=== PATIENT | female | born 1945 | race Caucasian/White ===

== ENCOUNTER 2018-08-08 19:00 | Inpatient (IN) | payer MEDICARE, BC ==
[~2018-08-08] VITALS: Ht 154.9 cm; Wt 86.2 kg
[2018-08-08] MEDS ORDERED: MAG HYDROX/AL HYDROX/SIMETH 30 ML ORAL.SUSP PO PRN (20:00)
[2018-08-08] MEDS ORDERED: AMLO5TAB10 PO (21:11)
[2018-08-08] MEDS ORDERED: BENA20TA4 PO (21:11)
[2018-08-08] MEDS ORDERED: ERGO500027 PO (21:11)
[2018-08-08] MEDS ORDERED: ACET325T9 PO (21:11)
[2018-08-08] MEDS ORDERED: ASPI-630 PO (21:11)
[2018-08-08] MEDS ORDERED: HEPA500041 IM (21:11)
[2018-08-08] MEDS ORDERED: LOVA40TA2 PO (21:21)
[2018-08-08] MEDS ORDERED: LEVE500T56 PO (21:21)
[2018-08-08] MEDS ORDERED: MEMA10TA PO (21:21)
[2018-08-08] MEDS ORDERED: QUET25TA5 PO (21:21)
[2018-08-08] MEDS ORDERED: QUET25TA PO (21:21)
[2018-08-08] MEDS ORDERED: VENL150T PO (21:21)
[2018-08-08] MEDS ORDERED: LEVO100T5 PO (21:21)
[2018-08-08] MEDS ORDERED: ACETAMINOPHEN 325 MG TABLET PO PRN (21:30)
[2018-08-08] MEDS: MEMANTINE 10 MG TABLET. PO SCH (22:32)
[2018-08-08] MEDS: levETIRAcetam 500 MG TABLET PO SCH (22:32)
[2018-08-08] MEDS: HEPARIN PF for SUB-Q USE 5,000 UNIT/0.5 ML VIAL. SQ SCH (22:33)
[2018-08-08] MEDS: QUEtiapine 25 MG TABLET. PO SCH (22:34)
[2018-08-08 22:50] LABS: BASO # 0.1 x10^3/uL (0.0-0.2); BASO % 1 % (0-3); EOS # 0.2 x10^3/uL (0.0-0.7); EOS % 3 % (0-3); HEMATOCRIT 38.9 % (36.0-47.0); HEMOGLOBIN 13.2 g/dL (12.0-15.5); LYMPH # 2.3 x10^3/uL (1.0-4.8); LYMPH % 32 % (24-48); MEAN CORPUSCULAR HEMOGLOBIN 31 pg (25-35); MEAN CORPUSCULAR HGB CONC 34 g/dL (31-37); MEAN CORPUSCULAR VOLUME 90 fL (79-100); MONO # 0.4 x10^3/uL (0.0-1.1); MONO % 6 % (0-9); NEUT # 4.1 x10^3uL (1.8-7.7); NEUT % 58 % (31-73); PLATELET COUNT 263 x10^3/uL (140-400); RED BLOOD COUNT 4.32 x10^6/uL (3.50-5.40); RED CELL DISTRIBUTION WIDTH 14.2 % (11.5-14.5)
[2018-08-08 23:04] LABS: ALBUMIN 3.5 g/dL (3.4-5.0); ALBUMIN/GLOBULIN RATIO 0.8 (1.0-1.7); CALCIUM 9.2 mg/dL (8.5-10.1); CREATININE 0.7 mg/dL (0.6-1.0); GFR 81.6; POTASSIUM 3.3 mmol/L (3.5-5.1); TOTAL BILIRUBIN 0.6 mg/dL (0.2-1.0)
[2018-08-09] MEDS ORDERED: DEXTROSE 50% 25 GM / 50ML DISP.SYRIN. IV PRN (05:45)
[2018-08-09] MEDS: HEPARIN PF for SUB-Q USE 5,000 UNIT/0.5 ML VIAL. SQ SCH ×3 (05:50→20:31)
[2018-08-09] MEDS: LEVOTHYROXINE 100 MCG TABLET PO SCH (05:54)
[2018-08-09 06:24] VITALS: BP 159/96
[2018-08-09 06:26] VITALS: BP 159/96
[2018-08-09] MEDS: INSULIN LISPRO 300 UNITS/3 ML INSULN.PEN. SQ SCH ×3 (08:00→17:00)
[2018-08-09] MEDS: MEMANTINE 10 MG TABLET. PO SCH ×2 (09:10→20:29)
[2018-08-09] MEDS: levETIRAcetam 500 MG TABLET PO SCH ×2 (09:10→20:30)
[2018-08-09] MEDS: LISINOPRIL 20 MG TABLET PO SCH (09:13)
[2018-08-09] MEDS: amLODIPine BESYLATE 5 MG TABLET PO SCH (09:13)
[2018-08-09] MEDS: ASPIRIN 81 MG TAB.CHEW PO SCH (09:13)
[2018-08-09] MEDS: QUEtiapine 25 MG TABLET. PO SCH ×2 (09:14→20:29)
[2018-08-09] MEDS: VENLAFAXINE 50 MG TABLET. PO SCH ×3 (09:14→20:29)
[2018-08-09 13:34] LABS: THYROID STIM HORMONE (TSH) 2.106 uIU/mL (0.358-3.740)
[2018-08-09 16:05] VITALS: BP 125/71
[2018-08-09 19:12] LABS: THYROXINE 10.8 ug/dL (4.5-12.0)
--- NOTE | 2018-08-09 19:55 | PDOC ---
Exam Note: José Miguel Note: Please also refer to the separate dictated note~for this date of service dictated separately. . Discussed the patient with Nursing staff reviewed the chart.~Reviewed interim history and current functioning. Reviewed vital signs,~ Labs/ Radiology~and current medications noted below. Continue current treatment with the changes noted in the dictated addendum note Assessment: Vital Signs: Vital Signs Date Time Temp Pulse Resp B/P (MAP) Pulse Ox O2 Delivery O2 Flow Rate FiO2 08/09/18 16:05 98.1 84 16 125/71 (89) 92 Room Air I&O Intake and Output 08/09/18 07:00 # Voids 1 Labs: Laboratory Tests Test 08/08/18 20:31 08/08/18 22:44 08/09/18 16:33 08/09/18 19:35 Glucose (Fingerstick) 112 mg/dL (70-99) H 162 mg/dL (70-99) H 209 mg/dL (70-99) H White Blood Count 7.0 x10^3/uL (4.0-11.0) Red Blood Count 4.32 x10^6/uL (3.50-5.40) Hemoglobin 13.2 g/dL (12.0-15.5) Hematocrit 38.9 % (36.0-47.0) Mean Corpuscular Volume 90 fL (79-100) Mean Corpuscular Hemoglobin 31 pg (25-35) Mean Corpuscular Hemoglobin Concent 34 g/dL (31-37) Red Cell Distribution Width 14.2 % (11.5-14.5) Platelet Count 263 x10^3/uL (140-400) Neutrophils (%) (Auto) 58 % (31-73) Lymphocytes (%) (Auto) 32 % (24-48) Monocytes (%) (Auto) 6 % (0-9) Eosinophils (%) (Auto) 3 % (0-3) Basophils (%) (Auto) 1 % (0-3) Neutrophils # (Auto) 4.1 x10^3uL (1.8-7.7) Lymphocytes # (Auto) 2.3 x10^3/uL (1.0-4.8) Monocytes # (Auto) 0.4 x10^3/uL (0.0-1.1) Eosinophils # (Auto) 0.2 x10^3/uL (0.0-0.7) Basophils # (Auto) 0.1 x10^3/uL (0.0-0.2) Sodium Level 140 mmol/L (136-145) Potassium Level 3.3 mmol/L (3.5-5.1) L Chloride Level 101 mmol/L (98-107) Carbon Dioxide Level 30 mmol/L (21-32) Anion Gap 9 (6-14) Blood Urea Nitrogen 10 mg/dL (7-20) Creatinine 0.7 mg/dL (0.6-1.0) Estimated GFR (Cockcroft-Gault) 81.6 BUN/Creatinine Ratio 14 (6-20) Glucose Level 115 mg/dL (70-99) H Hemoglobin A1c 6.0 % (4.8-5.6) H Calcium Level 9.2 mg/dL (8.5-10.1) Magnesium Level 2.0 mg/dL (1.8-2.4) Iron Level 57 ug/dL (50-170) Total Iron Binding Capacity 216 ug/dL (250-450) L Iron Saturation 26 % (15-34) Total Bilirubin 0.6 mg/dL (0.2-1.0) Aspartate Amino Transferase (AST) 25 U/L (15-37) Alanine Aminotransferase (ALT) 29 U/L (14-59) Alkaline Phosphatase 79 U/L (46-116) Total Protein 8.0 g/dL (6.4-8.2) Albumin 3.5 g/dL (3.4-5.0) Albumin/Globulin Ratio 0.8 (1.0-1.7) L Triglycerides Level 88 mg/dL (0-150) Cholesterol Level 105 mg/dL (0-200) LDL Cholesterol, Calculated 39 mg/dL (0-100) VLDL Cholesterol, Calculated 17 mg/dL (0-40) Non-HDL Cholesterol Calculated 56 mg/dL (0-129) HDL Cholesterol 49 mg/dL (40-60) Cholesterol/HDL Ratio 2.0 Vitamin B12 Level 360 pg/mL (247-911) 25-Hydroxy Vitamin D Total 65.4 ng/mL (30-100) Thyroid Stimulating Hormone (TSH) 2.106 uIU/mL (0.358-3.740) Thyroxine (T4) 10.8 ug/dL (4.5-12.0) Total Triiodothyronine (TT3) 82 ng/dL (71-180) Treponema pallidum Antibody Nonreactive (Nonreactive) Current Medications: Meds: Current Medications Acetaminophen (Tylenol) 650 mg PRN Q6HRS PRN PO PAIN / TEMP; Start 08/08/18 at 20:00 Multi-Ingredient Ointment (Analgesic [place]) 1 diana PRN QID PRN TP MUSCLE PAIN; Start 08/08/18 at 20:00 Al Hydroxide/Mg Hydroxide (Mylanta Plus Xs) 15 ml PRN AFTMEALHC PRN PO DYSPEPSIA; Start 08/08/18 at 20:00 Magnesium Hydroxide (Milk Of Magnesia) 2,400 mg PRN QHS PRN PO CONSTIPATION; Start 08/08/18 at 20:00 Memantine (Namenda) 10 mg BID PO Last administered on 08/09/18at 09:10; Start 08/08/18 at 22:00 Quetiapine Fumarate (SEROquel) 25 mg DAILY PO Last administered on 08/09/18at 09 :14; Start 08/09/18 at 09:00 Quetiapine Fumarate (SEROquel) 75 mg HS PO Last administered on 08/08/18at 22:34 ; Start 08/08/18 at 22:00 Venlafaxine HCl (Effexor) 50 mg TID PO Last administered on 08/09/18at 14:26; Start 08/09/18 at 09:00 Acetaminophen (Tylenol) 650 mg PRN Q4HRS PRN PO PAIN / TEMP; Start 08/08/18 at 21:30; Status Cancel Levothyroxine Sodium (Synthroid) 100 mcg DAILY06 PO Last administered on at 05:54; Start 08/09/18 at 06:00 Amlodipine Besylate (Norvasc) 5 mg DAILY PO Last administered on 08/09/18 09: 13; Start 08/09/18 at 09:00 Aspirin (Children'S Aspirin) 81 mg DAILY PO Last administered on 08/09/18at 09: 13; Start 08/09/18 at 09:00 Lisinopril (Prinivil) 20 mg DAILY PO Last administered on 08/09/18at 09:13; Start 11/9/18 at 09:00 Vitamin D (Vitamin D3) 50,000 unit WEEKLY PO ; Start 08/15/18 at 09:00 Heparin Sodium (Porcine) (Heparin Sq) 5,000 unit Q8HRS SQ Last administered on 08/09/18at 14:27; Start 08/08/18 at 22:00 Levetiracetam (Keppra) 500 mg BID PO Last administered on 08/09/18at 09:10; Start 08/08/18 at 22:00 Atorvastatin Calcium (Lipitor) 20 mg QHS PO ; Start 08/09/18 at 21:00 Insulin Human Lispro (HumaLOG) 0-5 UNITS TIDWMEALS SQ ; Start 08/09/18 at 08:00 Dextrose 12.5 gm PRN Q15MIN PRN IV SEE COMMENTS; Start 08/09/18 at 05:45 Active Scripts Active Reported Venlafaxine Hcl Er (Venlafaxine Hcl) 150 Mg Tab.er.24 150 Mg PO DAILYWBKFT Quetiapine Fumarate 25 Mg Tablet 25 Mg PO DAILY Seroquel (Quetiapine Fumarate) 25 Mg Tablet 75 Mg PO QHS Namenda (Memantine Hcl) 10 Mg Tablet 10 Mg PO BID Lovastatin 40 Mg Tablet 80 Mg PO QHS Levothyroxine Sodium 100 Mcg Tablet 100 Mcg PO DAILYAC Keppra (Levetiracetam) 500 Mg Tablet 500 Mg PO BID Heparin 5,000 Unit/5 ml-Ns (Heparin Sod,Porcine/0.9 % NaCl) 5,000 Unit/5 Ml Syringe 5,000 Unit IM Q8HRS Vitamin D2 (Ergocalciferol (Vitamin D2)) 50,000 Unit Capsule 50,000 Unit PO WEEKLY Benazepril Hcl 20 Mg Tablet 20 Mg PO DAILY Aspirin 81 Mg Tab.chew 81 Mg PO DAILY Amlodipine Besylate 5 Mg Tablet 5 Mg PO DAILY Tylenol (Acetaminophen) 325 Mg Tablet 650 Mg PO PRN Q4HRS PRN I have reviewed the current psychotropics carefully including drug interactions. Risk benefit ratio favors no change other than as noted in my dictated progress note. Diagnosis: Problems: (1) Anxiety disorder (2) Mild cognitive disorder (3) Major depressive disorder, recurrent episode (4) Impulse control disorder ANTONIA BAILEY MD Aug 09, 2018 19:55
[2018-08-09] MEDS: ATORVASTATIN CALCIUM 20 MG TABLET PO SCH (20:30)
--- NOTE | 2018-08-09 22:59 | PDOC ---
Exam Note: José Miguel Note: Please also refer to the separate dictated note~for this date of service dictated separately.~Patient seen individually. Discussed the patient with Nursing staff reviewed the chart.~Reviewed interim history and current functioning. Reviewed vital signs,~Labs/ Radiology~and current medications noted below. Continue current treatment with the changes noted in the dictated addendum note Assessment: Vital Signs: Vital Signs Date Time Temp Pulse Resp B/P (MAP) Pulse Ox O2 Delivery O2 Flow Rate FiO2 08/09/18 16:05 98.1 84 16 125/71 (89) 92 Room Air I&O Intake and Output 08/09/18 07:00 # Voids 1 Labs: Laboratory Tests Test 08/09/18 16:33 08/09/18 19:35 Glucose (Fingerstick) 162 mg/dL (70-99) H 209 mg/dL (70-99) H Current Medications: Meds: Current Medications Acetaminophen (Tylenol) 650 mg PRN Q6HRS PRN PO PAIN / TEMP; Start 08/08/18 at 20:00 Multi-Ingredient Ointment (Analgesic [place]) 1 diana PRN QID PRN TP MUSCLE PAIN; Start 08/08/18 at 20:00 Al Hydroxide/Mg Hydroxide (Mylanta Plus Xs) 15 ml PRN AFTMEALHC PRN PO DYSPEPSIA; Start 08/08/18 at 20:00 Magnesium Hydroxide (Milk Of Magnesia) 2,400 mg PRN QHS PRN PO CONSTIPATION; Start 08/08/18 at 20:00 Memantine (Namenda) 10 mg BID PO Last administered on 08/09/18at 20:29; Start 08/08/18 at 22:00 Quetiapine Fumarate (SEROquel) 25 mg DAILY PO Last administered on 08/09/18at 09 :14; Start 08/09/18 at 09:00 Quetiapine Fumarate (SEROquel) 75 mg HS PO Last administered on 08/09/18at 20:29 ; Start 08/08/18 at 22:00 Venlafaxine HCl (Effexor) 50 mg TID PO Last administered on 08/09/18at 20:29; Start 08/09/18 at 09:00 Acetaminophen (Tylenol) 650 mg PRN Q4HRS PRN PO PAIN / TEMP; Start 08/08/18 at 21:30; Status Cancel Levothyroxine Sodium (Synthroid) 100 mcg DAILY06 PO Last administered on at 05:54; Start 08/09/18 at 06:00 Amlodipine Besylate (Norvasc) 5 mg DAILY PO Last administered on 08/09/18at 09: 13; Start 08/09/18 at 09:00 Aspirin (Children'S Aspirin) 81 mg DAILY PO Last administered on 08/09/18at 09: 13; Start 08/09/18 at 09:00 Lisinopril (Prinivil) 20 mg DAILY PO Last administered on 08/09/18at 09:13; Start 08/09/18 at 09:00 Vitamin D (Vitamin D3) 50,000 unit WEEKLY PO ; Start 08/15/18 at 09:00 Heparin Sodium (Porcine) (Heparin Sq) 5,000 unit Q8HRS SQ Last administered on 08/09/18at 20:31; Start 08/08/18 at 22:00 Levetiracetam (Keppra) 500 mg BID PO Last administered on 08/09/18at 20:30; Start 08/08/18 at 22:00 Atorvastatin Calcium (Lipitor) 20 mg QHS PO Last administered on 08/09/18at 20: 30; Start 08/09/18 at 21:00 Insulin Human Lispro (HumaLOG) 0-5 UNITS TIDWMEALS SQ ; Start 08/09/18 at 08:00 Dextrose 12.5 gm PRN Q15MIN PRN IV SEE COMMENTS; Start 08/09/18 at 05:45 Active Scripts Active Reported Venlafaxine Hcl Er (Venlafaxine Hcl) 150 Mg Tab.er.24 150 Mg PO DAILYWBKFT Quetiapine Fumarate 25 Mg Tablet 25 Mg PO DAILY Seroquel (Quetiapine Fumarate) 25 Mg Tablet 75 Mg PO QHS Namenda (Memantine Hcl) 10 Mg Tablet 10 Mg PO BID Lovastatin 40 Mg Tablet 80 Mg PO QHS Levothyroxine Sodium 100 Mcg Tablet 100 Mcg PO DAILYAC Keppra (Levetiracetam) 500 Mg Tablet 500 Mg PO BID Heparin 5,000 Unit/5 ml-Ns (Heparin Sod,Porcine/0.9 % NaCl) 5,000 Unit/5 Ml Syringe 5,000 Unit IM Q8HRS Vitamin D2 (Ergocalciferol (Vitamin D2)) 50,000 Unit Capsule 50,000 Unit PO WEEKLY Benazepril Hcl 20 Mg Tablet 20 Mg PO DAILY Aspirin 81 Mg Tab.chew 81 Mg PO DAILY Amlodipine Besylate 5 Mg Tablet 5 Mg PO DAILY Tylenol (Acetaminophen) 325 Mg Tablet 650 Mg PO PRN Q4HRS PRN I have reviewed the current psychotropics carefully including drug interactions. Risk benefit ratio favors no change other than as noted in my dictated progress note. Diagnosis: Problems: (1) Anxiety disorder (2) Mild cognitive disorder (3) Major depressive disorder, recurrent episode (4) Impulse control disorder ANTONIA BAILEY MD Aug 09, 2018 22:59
--- NOTE | 2018-08-09 23:20 | PDOC2 ---
CONSULT Date of Admission DATE: 08/08/18 Reason for Consult: Medical Management Referring Physician: Dr Rocha Source: Caregiver, Chart review, Patient History of Present Illness: 73/F admitted to [facility] unit for worsening mental status. Records indicate patient has been emotionally labile with periods of depression and crying alternating with aggression. Reportedly hallucinating at times and vague reports of suicidal ideation. Symptoms worsening for the past three weeks and records indicate her neurologist has diagnosed her with MDD + psychotic features. Recently finished abx tx for UTI 08/06. I find the patient lying in her bed taking a nap but she is easily arousable. She is oriented only to herself. Answers "no" to suicidal ideation or current depressed mood. She does admit to decreased activity lately and "whole body pain" with activity, she feels physical activity would help. She denies any current acute complaints. She has DNR. Cardiovascular: HTN (murmur), hyperipidemia Pulmonary: Other (HONG) CENTRAL NERVOUS SYSTEM: CVA (x 2 with intracerebral hemorrhage), Seizure GI: Diverticulosis Heme/Onc: Cancer (Breast) Psych: Depression, Psychosis ENT: Other (cataracts, macular degeneration) Endocrine: Diabetes, Hypothyroidism Past Surgical History mastectomy Smoke: No ALCOHOL: none Drugs: None Lives: with Family Domestic Violence: Neg Current Medications Current Medications Acetaminophen (Tylenol) 650 mg PRN Q6HRS PRN PO PAIN / TEMP; Start 08/08/18 at 20:00 Multi-Ingredient Ointment (Analgesic [place]) 1 diana PRN QID PRN TP MUSCLE PAIN; Start 08/08/18 at 20:00 Al Hydroxide/Mg Hydroxide (Mylanta Plus Xs) 15 ml PRN AFTMEALHC PRN PO DYSPEPSIA; Start 08/08/18 at 20:00 Magnesium Hydroxide (Milk Of Magnesia) 2,400 mg PRN QHS PRN PO CONSTIPATION; Start 08/08/18 at 20:00 Memantine (Namenda) 10 mg BID PO Last administered on 08/09/18at 20:29; Start 08/08/18 at 22:00 Quetiapine Fumarate (SEROquel) 25 mg DAILY PO Last administered on 08/09/18at 09 :14; Start 08/09/18 at 09:00 Quetiapine Fumarate (SEROquel) 75 mg HS PO Last administered on 08/09/18 20:29 ; Start 08/08/18 at 22:00 Venlafaxine HCl (Effexor) 50 mg TID PO Last administered on 08/09/18 20:29; Start 08/09/18 at 09:00 Acetaminophen (Tylenol) 650 mg PRN Q4HRS PRN PO PAIN / TEMP; Start 08/08/18 at 21:30; Status Cancel Levothyroxine Sodium (Synthroid) 100 mcg DAILY06 PO Last administered on at 05:54; Start 08/09/18 at 06:00 Amlodipine Besylate (Norvasc) 5 mg DAILY PO Last administered on 08/09/18 09: 13; Start 08/09/18 at 09:00 Aspirin (Children'S Aspirin) 81 mg DAILY PO Last administered on 08/09/18 09: 13; Start 08/09/18 at 09:00 Lisinopril (Prinivil) 20 mg DAILY PO Last administered on 08/09/18at 09:13; Start 08/09/18 at 09:00 Vitamin D (Vitamin D3) 50,000 unit WEEKLY PO ; Start 08/15/18 at 09:00 Heparin Sodium (Porcine) (Heparin Sq) 5,000 unit Q8HRS SQ Last administered on 08/09/18at 20:31; Start 08/08/18 at 22:00 Levetiracetam (Keppra) 500 mg BID PO Last administered on 08/09/18 20:30; Start 08/08/18 at 22:00 Atorvastatin Calcium (Lipitor) 20 mg QHS PO Last administered on 08/09/18 20: 30; Start 08/09/18 at 21:00 Insulin Human Lispro (HumaLOG) 0-5 UNITS TIDWMEALS SQ ; Start 08/09/18 at 08:00 Dextrose 12.5 gm PRN Q15MIN PRN IV SEE COMMENTS; Start 08/09/18 at 05:45 Active Scripts Active Reported Venlafaxine Hcl Er (Venlafaxine Hcl) 150 Mg Tab.er.24 150 Mg PO DAILYWBKFT Quetiapine Fumarate 25 Mg Tablet 25 Mg PO DAILY Seroquel (Quetiapine Fumarate) 25 Mg Tablet 75 Mg PO QHS Namenda (Memantine Hcl) 10 Mg Tablet 10 Mg PO BID Lovastatin 40 Mg Tablet 80 Mg PO QHS Levothyroxine Sodium 100 Mcg Tablet 100 Mcg PO DAILYAC Keppra (Levetiracetam) 500 Mg Tablet 500 Mg PO BID Heparin 5,000 Unit/5 ml-Ns (Heparin Sod,Porcine/0.9 % NaCl) 5,000 Unit/5 Ml Syringe 5,000 Unit IM Q8HRS Vitamin D2 (Ergocalciferol (Vitamin D2)) 50,000 Unit Capsule 50,000 Unit PO WEEKLY Benazepril Hcl 20 Mg Tablet 20 Mg PO DAILY Aspirin 81 Mg Tab.chew 81 Mg PO DAILY Amlodipine Besylate 5 Mg Tablet 5 Mg PO DAILY Tylenol (Acetaminophen) 325 Mg Tablet 650 Mg PO PRN Q4HRS PRN Allergies: Coded Allergies: No Known Drug Allergies (Unverified , 08/08/18) Review of Systems: Constitutional: No fever or chills Eyes: No new eye pain or blurred vision Skin: No rash or itching Cardiovascular: No chest pain, syncope, palpitations, dyspnea on exertion, or edema Respiratory: No cough or difficulty breathing Gastrointestinal: No nausea, vomiting, or abdominal pain Neurologic: No headaches or focal neurologic deficits Endocrine: No heat or cold intolerance Genitourinary: No incontinence or hematuria Musculoskeletal: No joint pain or swelling Lymphatics: No enlarged lymph nodes Physical Exam: Gen.: calm and cooperative napping in bed, no apparent distress HEENT: Normocephalic atraumatic, no scleral icterus, oral mucosa pink and moist Neck: Supple, no lymphadenopathy, nontender Cardiovascular: Normal S1 and S2, 2/6 DANIELLE LSB Pulmonary: Lungs are clear bilaterally with good air movement no respiratory distress Abdomen: Soft nontender non-distended, bowel sounds present no masses Extremities: No clubbing, cyanosis or edema Neuro: Alert and oriented to self Skin: Warm, dry VITALS Vital Signs Date Time Temp Pulse Resp B/P (MAP) Pulse Ox O2 Delivery O2 Flow Rate FiO2 08/09/18 16:05 98.1 84 16 125/71 (89) 92 Room Air Labs Laboratory Tests Test 08/08/18 20:31 08/08/18 22:44 08/09/18 16:33 08/09/18 19:35 Glucose (Fingerstick) 112 mg/dL (70-99) 162 mg/dL (70-99) 209 mg/dL (70-99) White Blood Count 7.0 x10^3/uL (4.0-11.0) Red Blood Count 4.32 x10^6/uL (3.50-5.40) Hemoglobin 13.2 g/dL (12.0-15.5) Hematocrit 38.9 % (36.0-47.0) Mean Corpuscular Volume 90 fL (79-100) Mean Corpuscular Hemoglobin 31 pg (25-35) Mean Corpuscular Hemoglobin Concent 34 g/dL (31-37) Red Cell Distribution Width 14.2 % (11.5-14.5) Platelet Count 263 x10^3/uL (140-400) Neutrophils (%) (Auto) 58 % (31-73) Lymphocytes (%) (Auto) 32 % (24-48) Monocytes (%) (Auto) 6 % (0-9) Eosinophils (%) (Auto) 3 % (0-3) Basophils (%) (Auto) 1 % (0-3) Neutrophils # (Auto) 4.1 x10^3uL (1.8-7.7) Lymphocytes # (Auto) 2.3 x10^3/uL (1.0-4.8) Monocytes # (Auto) 0.4 x10^3/uL (0.0-1.1) Eosinophils # (Auto) 0.2 x10^3/uL (0.0-0.7) Basophils # (Auto) 0.1 x10^3/uL (0.0-0.2) Sodium Level 140 mmol/L (136-145) Potassium Level 3.3 mmol/L (3.5-5.1) Chloride Level 101 mmol/L (98-107) Carbon Dioxide Level 30 mmol/L (21-32) Anion Gap 9 (6-14) Blood Urea Nitrogen 10 mg/dL (7-20) Creatinine 0.7 mg/dL (0.6-1.0) Estimated GFR (Cockcroft-Gault) 81.6 BUN/Creatinine Ratio 14 (6-20) Glucose Level 115 mg/dL (70-99) Hemoglobin A1c 6.0 % (4.8-5.6) Calcium Level 9.2 mg/dL (8.5-10.1) Magnesium Level 2.0 mg/dL (1.8-2.4) Iron Level 57 ug/dL (50-170) Total Iron Binding Capacity 216 ug/dL (250-450) Iron Saturation 26 % (15-34) Total Bilirubin 0.6 mg/dL (0.2-1.0) Aspartate Amino Transf (AST/SGOT) 25 U/L (15-37) Alanine Aminotransferase (ALT/SGPT) 29 U/L (14-59) Alkaline Phosphatase 79 U/L (46-116) Total Protein 8.0 g/dL (6.4-8.2) Albumin 3.5 g/dL (3.4-5.0) Albumin/Globulin Ratio 0.8 (1.0-1.7) Triglycerides Level 88 mg/dL (0-150) Cholesterol Level 105 mg/dL (0-200) LDL Cholesterol, Calculated 39 mg/dL (0-100) VLDL Cholesterol, Calculated 17 mg/dL (0-40) Non-HDL Cholesterol Calculated 56 mg/dL (0-129) HDL Cholesterol 49 mg/dL (40-60) Cholesterol/HDL Ratio 2.0 Vitamin B12 Level 360 pg/mL (247-911) 25-Hydroxy Vitamin D Total 65.4 ng/mL (30-100) Thyroid Stimulating Hormone (TSH) 2.106 uIU/mL (0.358-3.740) Thyroxine (T4) 10.8 ug/dL (4.5-12.0) Total Triiodothyronine 82 ng/dL (71-180) Treponema pallidum Antibody Nonreactive (Nonreactive) Assessment/Plan In general this is a 73/F with multiple medical problems admitted to [facility] unit for changes in mental status. She reportedly recently finished abx tx 08/06 for UTI at [facility] however urine here still positive for UTI. Request culture/sensitivity from recent infection, cephalexin 500mg tid x 10 days empiric until cultures reported. K+ 3.3, will initiate electrolyte protocol. Hemoglobin A1c 6.0 above goal, recommend fully treat UTI and establish blood glucose trend. PT evaluation per patient request. We will continue to follow and offer treatments as indicated. Thank you, Dr Rocha, for allowing me to participate in the care of your patient. GISELA EMERSON DO Aug 09, 2018 23:20
[2018-08-10 06:00] VITALS: BP 111/70
[2018-08-10 06:37] LABS: BILIRUBIN,URINE MOD (NEG); CLARITY,URINE TURBID; COLOR,URINE AMBER; GLUCOSE,URINE NEG (NEG); NITRITE,URINE NEG (NEG); UROBILINOGEN,URINE 1 mg/dL (0.2 mg/dL)
[2018-08-10 06:38] LABS: AMORPHOUS SEDIMENT,UR PRESENT /HPF; BACTERIA,URINE FEW /HPF (0-FEW); HYALINE CASTS, URINE FEW /HPF; SQUAMOUS EPITHELIAL CELL,UR MOD /LPF
[2018-08-10] MEDS: QUEtiapine 25 MG TABLET. PO SCH ×2 (07:50→20:26)
[2018-08-10] MEDS: MEMANTINE 10 MG TABLET. PO SCH ×2 (07:50→20:26)
[2018-08-10] MEDS: VENLAFAXINE 50 MG TABLET. PO SCH ×2 (07:50→13:40)
[2018-08-10] MEDS: LISINOPRIL 20 MG TABLET PO SCH (07:51)
[2018-08-10] MEDS: levETIRAcetam 500 MG TABLET PO SCH ×2 (07:53→20:26)
[2018-08-10] MEDS: amLODIPine BESYLATE 5 MG TABLET PO SCH (07:53)
[2018-08-10] MEDS: LEVOTHYROXINE 100 MCG TABLET PO SCH (07:53)
[2018-08-10] MEDS: ASPIRIN 81 MG TAB.CHEW PO SCH (07:53)
[2018-08-10] MEDS: INSULIN LISPRO 300 UNITS/3 ML INSULN.PEN. SQ SCH ×3 (07:54→17:00)
[2018-08-10] MEDS: HEPARIN PF for SUB-Q USE 5,000 UNIT/0.5 ML VIAL. SQ SCH ×3 (07:56→20:28)
--- NOTE | 2018-08-10 12:30 | HP ---
ADMIT DATE: 08/09/2018 PSYCHIATRIC ADMISSION HISTORY AND EVALUATION This is a late entry, date of service 08/09/2018 covers elements not covered in my initial note 08/09/2018. I met with the patient evening of 08/09/2018 for this evaluation. IDENTIFYING DATA: The patient is a 73-year-old female referred to us from [facility] in [place], [place] by Dr. Day. After she presented there from home on account of increasing crying spells, suicidal ideation, being depressed, hallucinating and was diagnosed with major depressive disorder with psychotic features by the neurologist there. She had been aggressive towards family, having sleep and appetite changes, worsening short term memory deficits. She is admitted by her DPOA, Dixie Landrum, [id number] and the patient's physician at [facility] had activated the power of rotating field assembler. CHIEF COMPLAINT: "Yes, I have been depressed. Sometimes, I wish I could be ." HISTORY OF PRESENT ILLNESS: Reportedly, the patient has had 2 CVAs in the past year and has had other multiple medical problems. These include breast cancer, left breast; cataracts. She has chronic pain, which is overwhelming for her, does have diabetes mellitus, heart murmur, hypertension, hypothyroidism, obesity, sleep apnea and history of seizures. She has appeared more depressed, hopeless, helpless, worthless, paranoid, agitated. She has had some mood swings and short term memory deficits. No homicidal ideation. No clear history of bipolar disorder. PAST PSYCHIATRIC HISTORY: As noted above. PAST MEDICAL HISTORY: Diabetes mellitus, heart murmur, chronic pain, cataracts, breast cancer, left breast; sleep apnea, history of seizures, hypothyroidism, hypertension, obesity, impaired ambulation, in wheelchair. DRUG ALLERGIES: Negative. ACCU-CHEKS: A.c. and at bedtime. DIET: Cardiac diet regular texture. Takes medications whole. She has had some loose stools. CURRENT PSYCHOTROPICS: Seroquel 75 mg p.o. at bedtime, Namenda 10 mg b.i.d. FAMILY HISTORY: Noncontributory. SOCIAL HISTORY: No history of alcohol, drug abuse, physical, sexual or elder abuse. She is not known to be a perpetrator. REACTION TO HOSPITALIZATION: The patient accepting of it. ASSETS: Supportive family. MENTAL STATUS EXAMINATION: The patient was seen individually evening of 08/09/2018. She was aware it was 08/2018, but unsure of the date. She knew the President was President, oJsh. She is able to do two steps on the serial sevens, able to spell world forward with no error, backward with 1 error. Mood is depressed, somewhat hopeless, anxious. Affect is mood congruent. She has vague suicidal ideation. No active suicidal ideation when I have examined the evening of 08/09/2018. Attention span short. Language function intact. Intellect average. Insight fair. Judgment marginal. LABORATORY DATA: Reviewed. IMPRESSION: Major depressive disorder, recurrent with psychotic features; anxiety disorder, unspecified; impulse control disorder, unspecified; mild cognitive impairment. Rest diagnoses as above. PLAN: Admit to geropsychiatry unit at [facility]. I will see the patient daily individually from a psychiatric standpoint. Request medical followup with Dr. Anguiano/Dr. Rivera. Continue the patient on current psychotropics. Obtain past psychiatric records, though she has never seen a psychiatrist in the past. Continue current psychotropics, observe baseline, then adjust as clinically indicated. Given chronic pain we may change the Effexor to Cymbalta, which may help with the pain as well, but I would like to make this decision after the next 28-48 hours of observation and evaluation. Estimated length of stay 10-12 days. DISPOSITION PLANS: Probably back home to outpatient treatment. ANTONIA BAILEY MD DR: RAYMON/christen JOB#: [id number] / [id number]
[2018-08-10 16:04] VITALS: BP 101/63
[2018-08-10] MEDS: ACETAMINOPHEN 325 MG TABLET PO PRN (17:56)
[2018-08-10] MEDS: ATORVASTATIN CALCIUM 20 MG TABLET PO SCH (20:26)
--- NOTE | 2018-08-10 22:58 | PDOC ---
Exam Note: José Miguel Note: Please also refer to the separate dictated note~for this date of service dictated separately.~Patient seen individually. Discussed the patient with Nursing staff reviewed the chart.~Reviewed interim history and current functioning. Reviewed vital signs,~Labs/ Radiology~and current medications noted below. Continue current treatment with the changes noted in the dictated addendum note Assessment: Vital Signs: Vital Signs Date Time Temp Pulse Resp B/P (MAP) Pulse Ox O2 Delivery O2 Flow Rate FiO2 08/10/18 16:04 97.0 87 18 101/63 (76) 97 Room Air I&O Intake and Output 08/10/18 07:00 Intake Total 840 ml Output Total 300 ml Balance 540 ml Intake Oral 840 ml Output Urine Total 300 ml # Bowel Movements 1 Labs: Laboratory Tests Test 08/10/18 06:05 08/10/18 07:11 08/10/18 11:30 08/10/18 16:56 Urine Collection Type U cath Urine Color [place] Urine Clarity Turbid Urine pH 5.0 Urine Specific [place] >=1.030 Urine Protein 30 mg/dl (NEG-TRACE) Urine Glucose (UA) Neg mg/dL (NEG) Urine Ketones (Stick) 15 mg/dL (NEG) Urine Blood Neg (NEG) Urine Nitrite Neg (NEG) Urine Bilirubin Mod (NEG) Urine Urobilinogen Dipstick 1 mg/dL (0.2 mg/dL) Urine Leukocyte Esterase Trace (NEG) Urine RBC 1-2 /HPF (0-2) Urine WBC 5-10 /HPF (0-4) Urine Squamous Epithelial Cells Mod /LPF Urine Transitional Epithelial Cells Occ /LPF Urine Amorphous Sediment Present /HPF Urine Bacteria Few /HPF (0-FEW) Urine Hyaline Casts Few /HPF Urine Mucus Slight /LPF Glucose (Fingerstick) 187 mg/dL (70-99) H 202 mg/dL (70-99) H 194 mg/dL (70-99) H Test 08/10/18 19:52 Glucose (Fingerstick) 181 mg/dL (70-99) H Current Medications: Meds: Current Medications Acetaminophen (Tylenol) 650 mg PRN Q6HRS PRN PO PAIN / TEMP Last administered on 08/10/18at 17:56; Start 08/08/18 at 20:00 Multi-Ingredient Ointment (Analgesic [place]) 1 diana PRN QID PRN TP MUSCLE PAIN; Start 08/08/18 at 20:00 Al Hydroxide/Mg Hydroxide (Mylanta Plus Xs) 15 ml PRN AFTMEALHC PRN PO DYSPEPSIA; Start 08/08/18 at 20:00 Magnesium Hydroxide (Milk Of Magnesia) 2,400 mg PRN QHS PRN PO CONSTIPATION; Start 08/08/18 at 20:00 Memantine (Namenda) 10 mg BID PO Last administered on 08/10/18at 20:26; Start 08/08/18 at 22:00 Quetiapine Fumarate (SEROquel) 25 mg DAILY PO Last administered on 08/10/18at 07:50; Start 08/09/18 at 09:00 Quetiapine Fumarate (SEROquel) 75 mg HS PO Last administered on 08/10/18 20: 26; Start 08/08/18 at 22:00 Venlafaxine HCl (Effexor) 50 mg TID PO Last administered on 08/10/18at 13:40; Start 08/09/18 at 09:00; Stop 08/10/18 at 17:54; Status DC Acetaminophen (Tylenol) 650 mg PRN Q4HRS PRN PO PAIN / TEMP; Start 08/08/18 at 21:30; Status Cancel Levothyroxine Sodium (Synthroid) 100 mcg DAILY06 PO Last administered on at 07:53; Start 08/09/18 at 06:00 Amlodipine Besylate (Norvasc) 5 mg DAILY PO Last administered on 08/10/18at 07: 53; Start 08/09/18 at 09:00 Aspirin (Children'S Aspirin) 81 mg DAILY PO Last administered on 08/10/18at 07: 53; Start 08/09/18 at 09:00 Lisinopril (Prinivil) 20 mg DAILY PO Last administered on 08/10/18at 07:51; Start 08/09/18 at 09:00 Vitamin D (Vitamin D3) 50,000 unit WEEKLY PO ; Start 08/15/18 at 09:00 Heparin Sodium (Porcine) (Heparin Sq) 5,000 unit Q8HRS SQ Last administered on 08/10/18at 20:28; Start 08/08/18 at 22:00 Levetiracetam (Keppra) 500 mg BID PO Last administered on 08/10/18at 20:26; Start 08/08/18 at 22:00 Atorvastatin Calcium (Lipitor) 20 mg QHS PO Last administered on 08/10/18at 20: 26; Start 08/09/18 at 21:00 Insulin Human Lispro (HumaLOG) 0-5 UNITS TIDWMEALS SQ Last administered on 07/18at 12:12; Start 08/09/18 at 08:00 Dextrose 12.5 gm PRN Q15MIN PRN IV SEE COMMENTS; Start 08/09/18 at 05:45 Duloxetine HCl (Cymbalta) 30 mg DAILY PO ; Start 08/11/18 at 09:00; Stop 08/12 at 09:01 Duloxetine HCl (Cymbalta) 60 mg DAILY PO ; Start 08/13/18 at 09:00 Active Scripts Active Reported Venlafaxine Hcl Er (Venlafaxine Hcl) 150 Mg Tab.er.24 150 Mg PO DAILYWBKFT Quetiapine Fumarate 25 Mg Tablet 25 Mg PO DAILY Seroquel (Quetiapine Fumarate) 25 Mg Tablet 75 Mg PO QHS Namenda (Memantine Hcl) 10 Mg Tablet 10 Mg PO BID Lovastatin 40 Mg Tablet 80 Mg PO QHS Levothyroxine Sodium 100 Mcg Tablet 100 Mcg PO DAILYAC Keppra (Levetiracetam) 500 Mg Tablet 500 Mg PO BID Heparin 5,000 Unit/5 ml-Ns (Heparin Sod,Porcine/0.9 % NaCl) 5,000 Unit/5 Ml Syringe 5,000 Unit IM Q8HRS Vitamin D2 (Ergocalciferol (Vitamin D2)) 50,000 Unit Capsule 50,000 Unit PO WEEKLY Benazepril Hcl 20 Mg Tablet 20 Mg PO DAILY Aspirin 81 Mg Tab.chew 81 Mg PO DAILY Amlodipine Besylate 5 Mg Tablet 5 Mg PO DAILY Tylenol (Acetaminophen) 325 Mg Tablet 650 Mg PO PRN Q4HRS PRN I have reviewed the current psychotropics carefully including drug interactions. Risk benefit ratio favors no change other than as noted in my dictated progress note. Diagnosis: Problems: (1) Anxiety disorder (2) Mild cognitive disorder (3) Major depressive disorder, recurrent episode (4) Impulse control disorder ANTONIA BAILEY MD Aug 10, 2018 22:58
[2018-08-11] MEDS: LEVOTHYROXINE 100 MCG TABLET PO SCH (05:44)
[2018-08-11] MEDS: HEPARIN PF for SUB-Q USE 5,000 UNIT/0.5 ML VIAL. SQ SCH ×3 (06:39→21:26)
[2018-08-11 07:14] VITALS: BP 96/62
[2018-08-11] MEDS: INSULIN LISPRO 300 UNITS/3 ML INSULN.PEN. SQ SCH ×3 (08:00→17:34)
[2018-08-11] MEDS: ASPIRIN 81 MG TAB.CHEW PO SCH (08:53)
[2018-08-11] MEDS: levETIRAcetam 500 MG TABLET PO SCH ×2 (08:53→21:22)
[2018-08-11] MEDS: MEMANTINE 10 MG TABLET. PO SCH ×2 (08:53→21:20)
[2018-08-11] MEDS: QUEtiapine 25 MG TABLET. PO SCH ×2 (08:53→21:20)
[2018-08-11] MEDS: LACTOBACILLUS RHAMNOSUS GG 1 CAPSULE. PO SCH ×2 (08:54→21:20)
[2018-08-11] MEDS: amLODIPine BESYLATE 5 MG TABLET PO SCH (08:56)
[2018-08-11] MEDS: DULoxetine HCL 30 MG CAPSULE.DR PO SCH (08:56)
[2018-08-11] MEDS: CEPHALEXIN 250 MG CAPSULE PO SCH ×3 (08:56→21:20)
[2018-08-11] MEDS: LISINOPRIL 20 MG TABLET PO SCH (08:58)
[2018-08-11 16:12] VITALS: BP 100/60
--- NOTE | 2018-08-11 17:20 | PN ---
DATE: 08/10/2018 PSYCHIATRIC PROGRESS NOTE This is a late entry 08/10/2018 covers elements not covered in my initial note. SUBJECTIVE: I met with the patient in the evening. The patient slept 8-1/2 hours previous night. Overall, she has done little better during the day, but by the evening when I met with her, she was tearful, withdrawn, not very verbally interactive, depressed, unable to state what had changed for her, as I questioned her individually. REVIEW OF SYSTEMS: Ambulation impaired, in wheelchair. No CV, , pulmonary, eye system symptoms on review. MENTAL STATUS EXAM: Oriented to herself, situations. Speech, often responses monosyllabic, has some latency. Abstraction fair, computation impaired, language function intact, attention span short. Mood and affect depressed. IMPRESSION: Major depressive disorder with psychotic features; cognitive disorder, unspecified. Rest unchanged. PLAN: Change Effexor 50 mg t.i.d. to Cymbalta 30 mg a day for 2 days, then 60 mg a day. Continue Seroquel 75 mg at bedtime and add 25 mg in the morning to augment the Cymbalta. Continue Namenda 10 b.i.d. and she remains on Keppra 500 b.i.d. for seizures. ANTONIA BAILEY MD DR: RAYMON/christen JOB#: [id number] / [id number]
[2018-08-11] MEDS: ATORVASTATIN CALCIUM 20 MG TABLET PO SCH (21:20)
--- NOTE | 2018-08-11 22:58 | PDOC ---
Exam Note: José Miguel Note: Please also refer to the separate dictated note~for this date of service dictated separately.~Patient seen individually. Discussed the patient with Nursing staff reviewed the chart.~Reviewed interim history and current functioning. Reviewed vital signs,~Labs/ Radiology~and current medications noted below. Continue current treatment with the changes noted in the dictated addendum note Assessment: Vital Signs: Vital Signs Date Time Temp Pulse Resp B/P (MAP) Pulse Ox O2 Delivery O2 Flow Rate FiO2 08/11/18 16:12 97.4 77 20 100/60 (73) 98 08/11/18 07:14 Room Air I&O Intake and Output 08/11/18 07:00 Intake Total 960 ml Balance 960 ml Intake Oral 960 ml Labs: Laboratory Tests Test 08/11/18 07:51 08/11/18 11:49 08/11/18 17:03 08/11/18 19:30 Glucose (Fingerstick) 165 mg/dL (70-99) H 238 mg/dL (70-99) H 207 mg/dL (70-99) H 161 mg/dL (70-99) H Current Medications: Meds: Current Medications Acetaminophen (Tylenol) 650 mg PRN Q6HRS PRN PO PAIN / TEMP Last administered on 08/10/18at 17:56; Start 08/08/18 at 20:00 Multi-Ingredient Ointment (Analgesic [place]) 1 diana PRN QID PRN TP MUSCLE PAIN; Start 08/08/18 at 20:00 Al Hydroxide/Mg Hydroxide (Mylanta Plus Xs) 15 ml PRN AFTMEALHC PRN PO DYSPEPSIA; Start 08/08/18 at 20:00 Magnesium Hydroxide (Milk Of Magnesia) 2,400 mg PRN QHS PRN PO CONSTIPATION; Start 08/08/18 at 20:00 Memantine (Namenda) 10 mg BID PO Last administered on 08/11/18at 21:20; Start 08/08/18 at 22:00 Quetiapine Fumarate (SEROquel) 25 mg DAILY PO Last administered on 08/11/18at 08:53; Start 08/09/18 at 09:00 Quetiapine Fumarate (SEROquel) 75 mg HS PO Last administered on 08/11/18at 21: 20; Start 08/08/18 at 22:00 Venlafaxine HCl (Effexor) 50 mg TID PO Last administered on 08/10/18at 13:40; Start 08/09/18 at 09:00; Stop 08/10/18 at 17:54; Status DC Acetaminophen (Tylenol) 650 mg PRN Q4HRS PRN PO PAIN / TEMP; Start 08/08/18 at 21:30; Status Cancel Levothyroxine Sodium (Synthroid) 100 mcg DAILY06 PO Last administered on at 05:44; Start 08/09/18 at 06:00 Amlodipine Besylate (Norvasc) 5 mg DAILY PO Last administered on 08/10/18at 07: 53; Start 08/09/18 at 09:00 Aspirin (Children'S Aspirin) 81 mg DAILY PO Last administered on 08/11/18at 08: 53; Start 08/09/18 at 09:00 Lisinopril (Prinivil) 20 mg DAILY PO Last administered on 08/10/18at 07:51; Start 08/09/18 at 09:00 Vitamin D (Vitamin D3) 50,000 unit WEEKLY PO ; Start 08/15/18 at 09:00 Heparin Sodium (Porcine) (Heparin Sq) 5,000 unit Q8HRS SQ Last administered on 08/11/18at 21:26; Start 08/08/18 at 22:00 Levetiracetam (Keppra) 500 mg BID PO Last administered on 08/11/18at 21:22; Start 08/08/18 at 22:00 Atorvastatin Calcium (Lipitor) 20 mg QHS PO Last administered on 08/11/18at 21: 20; Start 08/09/18 at 21:00 Insulin Human Lispro (HumaLOG) 0-5 UNITS TIDWMEALS SQ Last administered on 08/18at 17:34; Start 08/09/18 at 08:00 Dextrose 12.5 gm PRN Q15MIN PRN IV SEE COMMENTS; Start 08/09/18 at 05:45 Duloxetine HCl (Cymbalta) 30 mg DAILY PO Last administered on 08/11/18at 08:56 ; Start 08/11/18 at 09:00; Stop 08/12/18 at 09:01 Duloxetine HCl (Cymbalta) 60 mg DAILY PO ; Start 08/13/18 at 09:00 Cephalexin HCl (Keflex) 500 mg TID PO Last administered on 08/11/18at 21:20; Start 08/11/18 at 09:00; Stop 08/21/18 at 08:59 Lactobacillus Rhamnosus (Culturelle) 1 cap BID PO Last administered on at 21:20; Start 08/11/18 at 09:00 Active Scripts Active Reported Venlafaxine Hcl Er (Venlafaxine Hcl) 150 Mg Tab.er.24 150 Mg PO DAILYWBKFT Quetiapine Fumarate 25 Mg Tablet 25 Mg PO DAILY Seroquel (Quetiapine Fumarate) 25 Mg Tablet 75 Mg PO QHS Namenda (Memantine Hcl) 10 Mg Tablet 10 Mg PO BID Lovastatin 40 Mg Tablet 80 Mg PO QHS Levothyroxine Sodium 100 Mcg Tablet 100 Mcg PO DAILYAC Keppra (Levetiracetam) 500 Mg Tablet 500 Mg PO BID Heparin 5,000 Unit/5 ml-Ns (Heparin Sod,Porcine/0.9 % NaCl) 5,000 Unit/5 Ml Syringe 5,000 Unit IM Q8HRS Vitamin D2 (Ergocalciferol (Vitamin D2)) 50,000 Unit Capsule 50,000 Unit PO WEEKLY Benazepril Hcl 20 Mg Tablet 20 Mg PO DAILY Aspirin 81 Mg Tab.chew 81 Mg PO DAILY Amlodipine Besylate 5 Mg Tablet 5 Mg PO DAILY Tylenol (Acetaminophen) 325 Mg Tablet 650 Mg PO PRN Q4HRS PRN I have reviewed the current psychotropics carefully including drug interactions. Risk benefit ratio favors no change other than as noted in my dictated progress note. Diagnosis: Problems: (1) Anxiety disorder (2) Mild cognitive disorder (3) Major depressive disorder, recurrent episode (4) Impulse control disorder ANTONIA BAILEY MD Aug 11, 2018 22:58
[2018-08-12] MEDS: LEVOTHYROXINE 100 MCG TABLET PO SCH (06:24)
[2018-08-12] MEDS: HEPARIN PF for SUB-Q USE 5,000 UNIT/0.5 ML VIAL. SQ SCH ×3 (06:25→20:19)
[2018-08-12 06:27] VITALS: BP 113/75
[2018-08-12] MEDS: INSULIN LISPRO 300 UNITS/3 ML INSULN.PEN. SQ SCH ×3 (08:00→17:37)
[2018-08-12] MEDS: LACTOBACILLUS RHAMNOSUS GG 1 CAPSULE. PO SCH ×2 (08:06→20:13)
[2018-08-12] MEDS: DULoxetine HCL 30 MG CAPSULE.DR PO SCH (08:06)
[2018-08-12] MEDS: amLODIPine BESYLATE 5 MG TABLET PO SCH (08:06)
[2018-08-12] MEDS: QUEtiapine 25 MG TABLET. PO SCH ×2 (08:06→20:12)
[2018-08-12] MEDS: LISINOPRIL 20 MG TABLET PO SCH (08:07)
[2018-08-12] MEDS: ASPIRIN 81 MG TAB.CHEW PO SCH (08:07)
[2018-08-12] MEDS: CEPHALEXIN 250 MG CAPSULE PO SCH ×3 (08:07→20:13)
[2018-08-12] MEDS: MEMANTINE 10 MG TABLET. PO SCH ×2 (08:07→20:13)
[2018-08-12] MEDS: levETIRAcetam 500 MG TABLET PO SCH ×2 (08:07→20:12)
--- NOTE | 2018-08-12 13:03 | EKG ---
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
[2018-08-12 16:15] VITALS: BP 125/75
--- NOTE | 2018-08-12 19:38 | PN ---
DATE: 08/11/2018 PSYCHIATRIC PROGRESS NOTE This late entry 08/11/2018 covers the elements not covered in my initial note. SUBJECTIVE: I met with the patient in the evening. The patient has been somewhat tearful, slept 7 hours the previous night. She is sad that the family has not visited her. She did better during the day, but was tearful, anxious, and not very verbal late in the evening when I met with her. REVIEW OF SYSTEMS: Ambulation impaired, in wheelchair. No CV, , pulmonary, eye system symptoms on review. MENTAL STATUS EXAM: Oriented to herself, situation. Speech has some latency, coherent. Abstraction fair, computation impaired, language function intact, attention span short. Mood and affect depressed. LABORATORY DATA: Reviewed. IMPRESSION: Major depressive disorder with psychotic features; anxiety disorder, unspecified; seizure disorder. PLAN: Continue Cymbalta, increasing to 60 mg a day; Namenda 10 b.i.d.; Keppra 500 b.i.d. for seizures; Seroquel 25 mg a.m. and 75 at bedtime. Adjust further as clinically indicated. MAN Han BAILEY MD DR: RAYMON/christen JOB#: [id number] / [id number]
[2018-08-12] MEDS: ATORVASTATIN CALCIUM 20 MG TABLET PO SCH (20:12)
--- NOTE | 2018-08-12 23:13 | PDOC ---
Exam Note: José Miguel Note: Please also refer to the separate dictated note~for this date of service dictated separately.~Patient seen individually. Discussed the patient with Nursing staff reviewed the chart.~Reviewed interim history and current functioning. Reviewed vital signs,~Labs/ Radiology~and current medications noted below. Continue current treatment with the changes noted in the dictated addendum note Assessment: Vital Signs: Vital Signs Date Time Temp Pulse Resp B/P (MAP) Pulse Ox O2 Delivery O2 Flow Rate FiO2 08/12/18 16:15 98.0 86 20 125/75 (92) 96 08/12/18 06:27 Room Air I&O Intake and Output 08/12/18 07:00 Intake Total 840 ml Balance 840 ml Intake Oral 840 ml Labs: Laboratory Tests Test 08/12/18 07:18 08/12/18 12:35 08/12/18 17:23 08/12/18 19:39 Glucose (Fingerstick) 157 mg/dL (70-99) H 176 mg/dL (70-99) H 207 mg/dL (70-99) H 222 mg/dL (70-99) H Current Medications: Meds: Current Medications Acetaminophen (Tylenol) 650 mg PRN Q6HRS PRN PO PAIN / TEMP Last administered on 08/10/18at 17:56; Start 08/08/18 at 20:00 Multi-Ingredient Ointment (Analgesic [place]) 1 diana PRN QID PRN TP MUSCLE PAIN; Start 08/08/18 at 20:00 Al Hydroxide/Mg Hydroxide (Mylanta Plus Xs) 15 ml PRN AFTMEALHC PRN PO DYSPEPSIA; Start 08/08/18 at 20:00 Magnesium Hydroxide (Milk Of Magnesia) 2,400 mg PRN QHS PRN PO CONSTIPATION; Start 08/08/18 at 20:00 Memantine (Namenda) 10 mg BID PO Last administered on 08/12/18at 20:13; Start 08/08/18 at 22:00 Quetiapine Fumarate (SEROquel) 25 mg DAILY PO Last administered on 08/12/18at 08:06; Start 08/09/18 at 09:00 Quetiapine Fumarate (SEROquel) 75 mg HS PO Last administered on 08/12/18at 20: 12; Start 08/08/18 at 22:00 Venlafaxine HCl (Effexor) 50 mg TID PO Last administered on 08/10/18at 13:40; Start 08/09/18 at 09:00; Stop 08/10/18 at 17:54; Status DC Acetaminophen (Tylenol) 650 mg PRN Q4HRS PRN PO PAIN / TEMP; Start 08/08/18 at 21:30; Status Cancel Levothyroxine Sodium (Synthroid) 100 mcg DAILY06 PO Last administered on at 06:24; Start 08/09/18 at 06:00 Amlodipine Besylate (Norvasc) 5 mg DAILY PO Last administered on 08/12/18 08: 06; Start 08/09/18 at 09:00 Aspirin (Children'S Aspirin) 81 mg DAILY PO Last administered on 08/12/18at 08: 07; Start 08/09/18 at 09:00 Lisinopril (Prinivil) 20 mg DAILY PO Last administered on 08/12/18at 08:07; Start 08/09/18 at 09:00 Vitamin D (Vitamin D3) 50,000 unit WEEKLY PO ; Start 08/15/18 at 09:00 Heparin Sodium (Porcine) (Heparin Sq) 5,000 unit Q8HRS SQ Last administered on 08/12/18at 20:19; Start 08/08/18 at 22:00 Levetiracetam (Keppra) 500 mg BID PO Last administered on 08/12/18at 20:12; Start 08/08/18 at 22:00 Atorvastatin Calcium (Lipitor) 20 mg QHS PO Last administered on 08/12/18at 20: 12; Start 08/09/18 at 21:00 Insulin Human Lispro (HumaLOG) 0-5 UNITS TIDWMEALS SQ Last administered on 09/17at 17:37; Start 08/09/18 at 08:00 Dextrose 12.5 gm PRN Q15MIN PRN IV SEE COMMENTS; Start 08/09/18 at 05:45 Duloxetine HCl (Cymbalta) 30 mg DAILY PO Last administered on 08/12/18at 08:06 ; Start 08/11/18 at 09:00; Stop 08/12/18 at 09:02; Status DC Duloxetine HCl (Cymbalta) 60 mg DAILY PO ; Start 08/13/18 at 09:00 Cephalexin HCl (Keflex) 500 mg TID PO Last administered on 08/12/18at 20:13; Start 08/11/18 at 09:00; Stop 08/21/18 at 08:59 Lactobacillus Rhamnosus (Culturelle) 1 cap BID PO Last administered on at 20:13; Start 08/11/18 at 09:00 Active Scripts Active Reported Venlafaxine Hcl Er (Venlafaxine Hcl) 150 Mg Tab.er.24 150 Mg PO DAILYWBKFT Quetiapine Fumarate 25 Mg Tablet 25 Mg PO DAILY Seroquel (Quetiapine Fumarate) 25 Mg Tablet 75 Mg PO QHS Namenda (Memantine Hcl) 10 Mg Tablet 10 Mg PO BID Lovastatin 40 Mg Tablet 80 Mg PO QHS Levothyroxine Sodium 100 Mcg Tablet 100 Mcg PO DAILYAC Keppra (Levetiracetam) 500 Mg Tablet 500 Mg PO BID Heparin 5,000 Unit/5 ml-Ns (Heparin Sod,Porcine/0.9 % NaCl) 5,000 Unit/5 Ml Syringe 5,000 Unit IM Q8HRS Vitamin D2 (Ergocalciferol (Vitamin D2)) 50,000 Unit Capsule 50,000 Unit PO WEEKLY Benazepril Hcl 20 Mg Tablet 20 Mg PO DAILY Aspirin 81 Mg Tab.chew 81 Mg PO DAILY Amlodipine Besylate 5 Mg Tablet 5 Mg PO DAILY Tylenol (Acetaminophen) 325 Mg Tablet 650 Mg PO PRN Q4HRS PRN I have reviewed the current psychotropics carefully including drug interactions. Risk benefit ratio favors no change other than as noted in my dictated progress note. Diagnosis: Problems: (1) Anxiety disorder (2) Mild cognitive disorder (3) Major depressive disorder, recurrent episode (4) Impulse control disorder ANTONIA BAILEY MD Aug 12, 2018 23:13
[2018-08-13 05:58] VITALS: BP 97/64
[2018-08-13] MEDS: HEPARIN PF for SUB-Q USE 5,000 UNIT/0.5 ML VIAL. SQ SCH ×3 (06:17→20:41)
[2018-08-13] MEDS: LEVOTHYROXINE 100 MCG TABLET PO SCH (06:17)
[2018-08-13] MEDS: QUEtiapine 25 MG TABLET. PO SCH ×2 (09:00→20:44)
[2018-08-13] MEDS: INSULIN LISPRO 300 UNITS/3 ML INSULN.PEN. SQ SCH ×3 (09:02→17:03)
[2018-08-13] MEDS: ASPIRIN 81 MG TAB.CHEW PO SCH (09:03)
[2018-08-13] MEDS: LACTOBACILLUS RHAMNOSUS GG 1 CAPSULE. PO SCH ×2 (09:03→20:39)
[2018-08-13] MEDS: levETIRAcetam 500 MG TABLET PO SCH ×2 (09:04→20:40)
[2018-08-13] MEDS: CEPHALEXIN 250 MG CAPSULE PO SCH ×3 (09:04→20:39)
[2018-08-13] MEDS: MEMANTINE 10 MG TABLET. PO SCH ×2 (09:04→20:39)
[2018-08-13] MEDS: LISINOPRIL 20 MG TABLET PO SCH (09:05)
[2018-08-13] MEDS: amLODIPine BESYLATE 5 MG TABLET PO SCH (09:10)
[2018-08-13] MEDS: DULoxetine HCL 60 MG CAPSULE.DR PO SCH (09:10)
[2018-08-13 15:36] VITALS: BP 108/72
[2018-08-13] MEDS: ATORVASTATIN CALCIUM 20 MG TABLET PO SCH (20:46)
--- NOTE | 2018-08-13 21:11 | PN ---
DATE: 08/12/2018 PSYCHIATRIC PROGRESS NOTE This is a late entry 08/12/2018 covers elements not covered in my initial note. SUBJECTIVE: I met with the patient in the evening. The patient slept 6-1/2 hours previous night. She was tearful all night per nursing report. During the day on 08/12/2018, she was talking to her DPOA and somewhat better per nursing report. REVIEW OF SYSTEMS: Ambulation impaired, in wheelchair. No CV, , pulmonary, eye, ENT system symptoms on review. MENTAL STATUS EXAM: Oriented to herself and situation. Speech has some latency, coherent, abstraction fair, computation impaired, language function intact, attention span short. Mood and affect still depressed, tearful at times, but much less labile than even the day before labs. No suicidal or homicidal ideation. LABORATORY DATA: Reviewed. IMPRESSION: Major depressive disorder with psychotic features in partial remission. Rest unchanged. PLAN: No change from psychotropics mentioned in my initial note. We will increase the Cymbalta from 30 mg a day to 60 mg a day on 08/13/2018. MAN Han BAILEY MD DR: RAYMON/christen JOB#: [id number] / [id number]
--- NOTE | 2018-08-13 22:49 | PDOC ---
Exam Note: José Miguel Note: Please also refer to the separate dictated note~for this date of service dictated separately.~Patient seen individually. Discussed the patient with Nursing staff reviewed the chart.~Reviewed interim history and current functioning. Reviewed vital signs,~Labs/ Radiology~and current medications noted below. Continue current treatment with the changes noted in the dictated addendum note Assessment: Vital Signs: Vital Signs Date Time Temp Pulse Resp B/P (MAP) Pulse Ox O2 Delivery O2 Flow Rate FiO2 08/13/18 15:36 97.2 93 17 108/72 (84) 97 Room Air I&O Intake and Output 08/13/18 07:00 Intake Total 560 ml Balance 560 ml Intake Oral 560 ml Labs: Laboratory Tests Test 08/13/18 07:23 08/13/18 12:23 08/13/18 16:08 08/13/18 19:25 Glucose (Fingerstick) 166 mg/dL (70-99) H 197 mg/dL (70-99) H 203 mg/dL (70-99) H 202 mg/dL (70-99) H Current Medications: Meds: Current Medications Acetaminophen (Tylenol) 650 mg PRN Q6HRS PRN PO PAIN / TEMP Last administered on 08/10/18at 17:56; Start 08/08/18 at 20:00 Multi-Ingredient Ointment (Analgesic [place]) 1 diana PRN QID PRN TP MUSCLE PAIN; Start 08/08/18 at 20:00 Al Hydroxide/Mg Hydroxide (Mylanta Plus Xs) 15 ml PRN AFTMEALHC PRN PO DYSPEPSIA; Start 08/08/18 at 20:00 Magnesium Hydroxide (Milk Of Magnesia) 2,400 mg PRN QHS PRN PO CONSTIPATION; Start 08/08/18 at 20:00 Memantine (Namenda) 10 mg BID PO Last administered on 08/13/18at 20:39; Start 08/08/18 at 22:00 Quetiapine Fumarate (SEROquel) 25 mg DAILY PO Last administered on 08/13/18at 09:00; Start 08/09/18 at 09:00 Quetiapine Fumarate (SEROquel) 75 mg HS PO Last administered on 08/13/18at 20: 44; Start 08/08/18 at 22:00 Venlafaxine HCl (Effexor) 50 mg TID PO Last administered on 08/10/18at 13:40; Start 08/09/18 at 09:00; Stop 08/10/18 at 17:54; Status DC Acetaminophen (Tylenol) 650 mg PRN Q4HRS PRN PO PAIN / TEMP; Start 08/08/18 at 21:30; Status Cancel Levothyroxine Sodium (Synthroid) 100 mcg DAILY06 PO Last administered on 06:17; Start 08/09/18 at 06:00 Amlodipine Besylate (Norvasc) 5 mg DAILY PO Last administered on 08/13/18 09: 10; Start 08/09/18 at 09:00 Aspirin (Children'S Aspirin) 81 mg DAILY PO Last administered on 08/13/18 09: 03; Start 08/09/18 at 09:00 Lisinopril (Prinivil) 20 mg DAILY PO Last administered on 08/13/18at 09:05; Start 08/09/18 at 09:00 Vitamin D (Vitamin D3) 50,000 unit WEEKLY PO ; Start 08/15/18 at 09:00 Heparin Sodium (Porcine) (Heparin Sq) 5,000 unit Q8HRS SQ Last administered on 08/13/18at 20:41; Start 08/08/18 at 22:00 Levetiracetam (Keppra) 500 mg BID PO Last administered on 08/13/18at 20:40; Start 08/08/18 at 22:00 Atorvastatin Calcium (Lipitor) 20 mg QHS PO Last administered on 08/13/18at 20: 46; Start 08/09/18 at 21:00 Insulin Human Lispro (HumaLOG) 0-5 UNITS TIDWMEALS SQ Last administered on at 17:03; Start 08/09/18 at 08:00 Dextrose 12.5 gm PRN Q15MIN PRN IV SEE COMMENTS; Start 08/09/18 at 05:45 Duloxetine HCl (Cymbalta) 30 mg DAILY PO Last administered on 08/12/18at 08:06 ; Start 08/11/18 at 09:00; Stop 08/12/18 at 09:02; Status DC Duloxetine HCl (Cymbalta) 60 mg DAILY PO Last administered on 08/13/18at 09:10 ; Start 08/13/18 at 09:00 Cephalexin HCl (Keflex) 500 mg TID PO Last administered on 08/13/18at 20:39; Start 08/11/18 at 09:00; Stop 08/21/18 at 08:59 Lactobacillus Rhamnosus (Culturelle) 1 cap BID PO Last administered on at 20:39; Start 08/11/18 at 09:00 Active Scripts Active Reported Venlafaxine Hcl Er (Venlafaxine Hcl) 150 Mg Tab.er.24 150 Mg PO DAILYWBKFT Quetiapine Fumarate 25 Mg Tablet 25 Mg PO DAILY Seroquel (Quetiapine Fumarate) 25 Mg Tablet 75 Mg PO QHS Namenda (Memantine Hcl) 10 Mg Tablet 10 Mg PO BID Lovastatin 40 Mg Tablet 80 Mg PO QHS Levothyroxine Sodium 100 Mcg Tablet 100 Mcg PO DAILYAC Keppra (Levetiracetam) 500 Mg Tablet 500 Mg PO BID Heparin 5,000 Unit/5 ml-Ns (Heparin Sod,Porcine/0.9 % NaCl) 5,000 Unit/5 Ml Syringe 5,000 Unit IM Q8HRS Vitamin D2 (Ergocalciferol (Vitamin D2)) 50,000 Unit Capsule 50,000 Unit PO WEEKLY Benazepril Hcl 20 Mg Tablet 20 Mg PO DAILY Aspirin 81 Mg Tab.chew 81 Mg PO DAILY Amlodipine Besylate 5 Mg Tablet 5 Mg PO DAILY Tylenol (Acetaminophen) 325 Mg Tablet 650 Mg PO PRN Q4HRS PRN I have reviewed the current psychotropics carefully including drug interactions. Risk benefit ratio favors no change other than as noted in my dictated progress note. Diagnosis: Problems: (1) Anxiety disorder (2) Mild cognitive disorder (3) Major depressive disorder, recurrent episode (4) Impulse control disorder ANTONIA BAILEY MD Aug 13, 2018 22:49
[2018-08-14 06:06] VITALS: BP 138/72
[2018-08-14] MEDS: LEVOTHYROXINE 100 MCG TABLET PO SCH ×2 (06:15→08:06)
[2018-08-14] MEDS: HEPARIN PF for SUB-Q USE 5,000 UNIT/0.5 ML VIAL. SQ SCH ×3 (06:18→20:23)
[2018-08-14] MEDS: INSULIN LISPRO 300 UNITS/3 ML INSULN.PEN. SQ SCH ×3 (08:00→17:00)
[2018-08-14] MEDS: LACTOBACILLUS RHAMNOSUS GG 1 CAPSULE. PO SCH ×2 (08:05→19:46)
[2018-08-14] MEDS: DULoxetine HCL 60 MG CAPSULE.DR PO SCH (08:06)
[2018-08-14] MEDS: CEPHALEXIN 250 MG CAPSULE PO SCH ×3 (08:06→19:47)
[2018-08-14] MEDS: ASPIRIN 81 MG TAB.CHEW PO SCH (08:06)
[2018-08-14] MEDS: MEMANTINE 10 MG TABLET. PO SCH ×2 (08:06→19:47)
[2018-08-14] MEDS: levETIRAcetam 500 MG TABLET PO SCH ×2 (08:06→19:46)
[2018-08-14] MEDS: amLODIPine BESYLATE 5 MG TABLET PO SCH (08:06)
[2018-08-14] MEDS: LISINOPRIL 20 MG TABLET PO SCH (08:07)
[2018-08-14] MEDS: QUEtiapine 25 MG TABLET. PO SCH ×2 (08:07→19:47)
[2018-08-14 16:59] VITALS: BP 102/70
[2018-08-14] MEDS: ATORVASTATIN CALCIUM 20 MG TABLET PO SCH (20:00)
--- NOTE | 2018-08-14 21:22 | PN ---
DATE: 08/13/2018 PSYCHIATRIC PROGRESS NOTE This late entry 08/13/2018 covers elements not covered in my initial note. SUBJECTIVE: I met with the patient at length the evening of 08/13/2018. SUBJECTIVE: The patient slept 8-1/4 hours previous evening. The patient has been tearful. Denies suicidal ideation, withdrawn at times. REVIEW OF SYSTEMS: Ambulation impaired, in wheelchair. No CV, , pulmonary, eye, ENT system symptoms on review. MENTAL STATUS EXAM: Oriented to herself and situation. Speech is coherent, has some latency. Abstraction fair, computation impaired, language function intact. Mood and affect remain somewhat depressed. No suicidal ideation. LABORATORY DATA: Reviewed. IMPRESSION: Major depressive disorder with psychotic features in partial remission; anxiety disorder, unspecified; seizure disorder. PLAN: No change from initial note. Continue Namenda, Seroquel. Cymbalta has been increased to 60 mg a day. Adjust further as clinically indicated. MAN Han BAILEY MD DR: RAYMON/christen JOB#: [id number] / [id number]
--- NOTE | 2018-08-14 22:51 | PDOC ---
Exam Note: José Miguel Note: Please also refer to the separate dictated note~for this date of service dictated separately.~Patient seen individually. Discussed the patient with Nursing staff reviewed the chart.~Reviewed interim history and current functioning. Reviewed vital signs,~Labs/ Radiology~and current medications noted below. Continue current treatment with the changes noted in the dictated addendum note Assessment: Vital Signs: Vital Signs Date Time Temp Pulse Resp B/P (MAP) Pulse Ox O2 Delivery O2 Flow Rate FiO2 08/14/18 16:59 98.1 82 18 102/70 (81) 93 Room Air I&O Intake and Output 08/14/18 07:00 Intake Total 720 ml Balance 720 ml Intake Oral 720 ml Labs: Laboratory Tests Test 08/14/18 07:30 08/14/18 11:40 08/14/18 17:21 08/14/18 19:50 Glucose (Fingerstick) 173 mg/dL (70-99) H 204 mg/dL (70-99) H 245 mg/dL (70-99) H 184 mg/dL (70-99) H Current Medications: Meds: Current Medications Acetaminophen (Tylenol) 650 mg PRN Q6HRS PRN PO PAIN / TEMP Last administered on 08/10/18at 17:56; Start 08/08/18 at 20:00 Multi-Ingredient Ointment (Analgesic [place]) 1 diana PRN QID PRN TP MUSCLE PAIN; Start 08/08/18 at 20:00 Al Hydroxide/Mg Hydroxide (Mylanta Plus Xs) 15 ml PRN AFTMEALHC PRN PO DYSPEPSIA; Start 08/08/18 at 20:00 Magnesium Hydroxide (Milk Of Magnesia) 2,400 mg PRN QHS PRN PO CONSTIPATION; Start 08/08/18 at 20:00 Memantine (Namenda) 10 mg BID PO Last administered on 08/14/18at 19:47; Start 08/08/18 at 22:00 Quetiapine Fumarate (SEROquel) 25 mg DAILY PO Last administered on 08/14/18at 08:07; Start 08/09/18 at 09:00 Quetiapine Fumarate (SEROquel) 75 mg HS PO Last administered on 08/14/18at 19: 47; Start 08/08/18 at 22:00 Venlafaxine HCl (Effexor) 50 mg TID PO Last administered on 08/10/18at 13:40; Start 08/09/18 at 09:00; Stop 08/10/18 at 17:54; Status DC Acetaminophen (Tylenol) 650 mg PRN Q4HRS PRN PO PAIN / TEMP; Start 08/08/18 at 21:30; Status Cancel Levothyroxine Sodium (Synthroid) 100 mcg DAILY06 PO Last administered on 08:06; Start 08/09/18 at 06:00 Amlodipine Besylate (Norvasc) 5 mg DAILY PO Last administered on 08/14/18 08: 06; Start 08/09/18 at 09:00 Aspirin (Children'S Aspirin) 81 mg DAILY PO Last administered on 08/14/18 08: 06; Start 08/09/18 at 09:00 Lisinopril (Prinivil) 20 mg DAILY PO Last administered on 08/14/18at 08:07; Start 08/09/18 at 09:00 Vitamin D (Vitamin D3) 50,000 unit WEEKLY PO ; Start 08/15/18 at 09:00 Heparin Sodium (Porcine) (Heparin Sq) 5,000 unit Q8HRS SQ Last administered on 08/14/18at 20:23; Start 08/08/18 at 22:00 Levetiracetam (Keppra) 500 mg BID PO Last administered on 08/14/18at 19:46; Start 08/08/18 at 22:00 Atorvastatin Calcium (Lipitor) 20 mg QHS PO Last administered on 08/14/18at 20: 00; Start 08/09/18 at 21:00 Insulin Human Lispro (HumaLOG) 0-5 UNITS TIDWMEALS SQ Last administered on at 12:36; Start 08/09/18 at 08:00 Dextrose 12.5 gm PRN Q15MIN PRN IV SEE COMMENTS; Start 08/09/18 at 05:45 Duloxetine HCl (Cymbalta) 30 mg DAILY PO Last administered on 08/12/18at 08:06 ; Start 08/11/18 at 09:00; Stop 08/12/18 at 09:02; Status DC Duloxetine HCl (Cymbalta) 60 mg DAILY PO Last administered on 08/14/18at 08:06 ; Start 08/13/18 at 09:00 Cephalexin HCl (Keflex) 500 mg TID PO Last administered on 08/14/18at 19:47; Start 08/11/18 at 09:00; Stop 08/21/18 at 08:59 Lactobacillus Rhamnosus (Culturelle) 1 cap BID PO Last administered on at 19:46; Start 08/11/18 at 09:00 Active Scripts Active Reported Venlafaxine Hcl Er (Venlafaxine Hcl) 150 Mg Tab.er.24 150 Mg PO DAILYWBKFT Quetiapine Fumarate 25 Mg Tablet 25 Mg PO DAILY Seroquel (Quetiapine Fumarate) 25 Mg Tablet 75 Mg PO QHS Namenda (Memantine Hcl) 10 Mg Tablet 10 Mg PO BID Lovastatin 40 Mg Tablet 80 Mg PO QHS Levothyroxine Sodium 100 Mcg Tablet 100 Mcg PO DAILYAC Keppra (Levetiracetam) 500 Mg Tablet 500 Mg PO BID Heparin 5,000 Unit/5 ml-Ns (Heparin Sod,Porcine/0.9 % NaCl) 5,000 Unit/5 Ml Syringe 5,000 Unit IM Q8HRS Vitamin D2 (Ergocalciferol (Vitamin D2)) 50,000 Unit Capsule 50,000 Unit PO WEEKLY Benazepril Hcl 20 Mg Tablet 20 Mg PO DAILY Aspirin 81 Mg Tab.chew 81 Mg PO DAILY Amlodipine Besylate 5 Mg Tablet 5 Mg PO DAILY Tylenol (Acetaminophen) 325 Mg Tablet 650 Mg PO PRN Q4HRS PRN I have reviewed the current psychotropics carefully including drug interactions. Risk benefit ratio favors no change other than as noted in my dictated progress note. Diagnosis: Problems: (1) Anxiety disorder (2) Mild cognitive disorder (3) Major depressive disorder, recurrent episode (4) Impulse control disorder ANTONIA BAILEY MD Aug 14, 2018 22:51
[2018-08-15 06:07] VITALS: BP 114/71
[2018-08-15] MEDS: HEPARIN PF for SUB-Q USE 5,000 UNIT/0.5 ML VIAL. SQ SCH ×3 (06:18→19:43)
[2018-08-15] MEDS ORDERED: LEVOTHYROXINE 100 MCG TABLET PO ONE (06:30)
[2018-08-15] MEDS: INSULIN LISPRO 300 UNITS/3 ML INSULN.PEN. SQ SCH ×3 (08:00→18:09)
[2018-08-15] MEDS: amLODIPine BESYLATE 5 MG TABLET PO SCH (08:49)
[2018-08-15] MEDS: LISINOPRIL 20 MG TABLET PO SCH (08:50)
[2018-08-15] MEDS: levETIRAcetam 500 MG TABLET PO SCH ×2 (08:50→19:39)
[2018-08-15] MEDS: DULoxetine HCL 60 MG CAPSULE.DR PO SCH (08:50)
[2018-08-15] MEDS: ASPIRIN 81 MG TAB.CHEW PO SCH (08:50)
[2018-08-15] MEDS: MEMANTINE 10 MG TABLET. PO SCH ×2 (08:50→19:39)
[2018-08-15] MEDS: QUEtiapine 25 MG TABLET. PO SCH ×2 (08:50→19:41)
[2018-08-15] MEDS: CEPHALEXIN 250 MG CAPSULE PO SCH ×3 (08:50→19:41)
[2018-08-15] MEDS: CHOLECALCIFEROL (VITAMIN D3) 50,000 UNIT CAPSULE PO SCH (09:15)
[2018-08-15] MEDS: LACTOBACILLUS RHAMNOSUS GG 1 CAPSULE. PO SCH ×2 (09:16→19:40)
[2018-08-15 16:11] VITALS: BP 129/82
[2018-08-15] MEDS: ATORVASTATIN CALCIUM 20 MG TABLET PO SCH (19:44)
--- NOTE | 2018-08-15 23:03 | PDOC ---
Exam Note: José Miguel Note: Please also refer to the separate dictated note~for this date of service dictated separately.~Patient seen individually. Discussed the patient with Nursing staff reviewed the chart.~Reviewed interim history and current functioning. Reviewed vital signs,~Labs/ Radiology~and current medications noted below. Continue current treatment with the changes noted in the dictated addendum note Assessment: Vital Signs: Vital Signs Date Time Temp Pulse Resp B/P (MAP) Pulse Ox O2 Delivery O2 Flow Rate FiO2 08/15/18 16:11 97.1 88 20 129/82 (98) 97 Room Air I&O Intake and Output 08/15/18 07:00 Intake Total 600 ml Balance 600 ml Intake Oral 600 ml # Bowel Movements 1 Labs: Laboratory Tests Test 08/15/18 07:17 08/15/18 11:26 08/15/18 16:57 Glucose (Fingerstick) 174 mg/dL (70-99) H 189 mg/dL (70-99) H 208 mg/dL (70-99) H Current Medications: Meds: Current Medications Acetaminophen (Tylenol) 650 mg PRN Q6HRS PRN PO PAIN / TEMP Last administered on 08/10/18at 17:56; Start 08/08/18 at 20:00 Multi-Ingredient Ointment (Analgesic [place]) 1 diana PRN QID PRN TP MUSCLE PAIN; Start 08/08/18 at 20:00 Al Hydroxide/Mg Hydroxide (Mylanta Plus Xs) 15 ml PRN AFTMEALHC PRN PO DYSPEPSIA; Start 08/08/18 at 20:00 Magnesium Hydroxide (Milk Of Magnesia) 2,400 mg PRN QHS PRN PO CONSTIPATION; Start 08/08/18 at 20:00 Memantine (Namenda) 10 mg BID PO Last administered on 08/15/18at 19:39; Start 08/08/18 at 22:00 Quetiapine Fumarate (SEROquel) 25 mg DAILY PO Last administered on 08/15/18at 08:50; Start 08/09/18 at 09:00 Quetiapine Fumarate (SEROquel) 75 mg HS PO Last administered on 08/15/18at 19: 41; Start 08/08/18 at 22:00 Venlafaxine HCl (Effexor) 50 mg TID PO Last administered on 08/10/18at 13:40; Start 08/09/18 at 09:00; Stop 08/10/18 at 17:54; Status DC Acetaminophen (Tylenol) 650 mg PRN Q4HRS PRN PO PAIN / TEMP; Start 08/08/18 at 21:30; Status Cancel Levothyroxine Sodium (Synthroid) 100 mcg DAILY06 PO Last administered on 08:06; Start 08/09/18 at 06:00 Amlodipine Besylate (Norvasc) 5 mg DAILY PO Last administered on 08/15/18 08: 49; Start 08/09/18 at 09:00 Aspirin (Children'S Aspirin) 81 mg DAILY PO Last administered on 08/15/18 08: 50; Start 08/09/18 at 09:00 Lisinopril (Prinivil) 20 mg DAILY PO Last administered on 08/15/18 08:50; Start 08/09/18 at 09:00 Vitamin D (Vitamin D3) 50,000 unit WEEKLY PO Last administered on 08/15/18at 09 :15; Start 08/15/18 at 09:00 Heparin Sodium (Porcine) (Heparin Sq) 5,000 unit Q8HRS SQ Last administered on 08/15/18 19:43; Start 08/08/18 at 22:00 Levetiracetam (Keppra) 500 mg BID PO Last administered on 08/15/18 19:39; Start 08/08/18 at 22:00 Atorvastatin Calcium (Lipitor) 20 mg QHS PO Last administered on 08/15/18 19: 44; Start 08/09/18 at 21:00 Insulin Human Lispro (HumaLOG) 0-5 UNITS TIDWMEALS SQ Last administered on at 18:09; Start 08/09/18 at 08:00 Dextrose 12.5 gm PRN Q15MIN PRN IV SEE COMMENTS; Start 08/09/18 at 05:45 Duloxetine HCl (Cymbalta) 30 mg DAILY PO Last administered on 08/12/18at 08:06 ; Start 08/11/18 at 09:00; Stop 08/12/18 at 09:02; Status DC Duloxetine HCl (Cymbalta) 60 mg DAILY PO Last administered on 08/15/18at 08:50 ; Start 08/13/18 at 09:00 Cephalexin HCl (Keflex) 500 mg TID PO Last administered on 08/15/18at 19:41; Start 08/11/18 at 09:00; Stop 08/21/18 at 08:59 Lactobacillus Rhamnosus (Culturelle) 1 cap BID PO Last administered on at 19:40; Start 08/11/18 at 09:00 Levothyroxine Sodium (Synthroid) 100 mcg 1X ONCE PO Last administered on 08/15at 06:23; Start 08/15/18 at 06:30; Stop 08/15/18 at 06:31; Status DC Active Scripts Active Reported Venlafaxine Hcl Er (Venlafaxine Hcl) 150 Mg Tab.er.24 150 Mg PO DAILYWBKFT Quetiapine Fumarate 25 Mg Tablet 25 Mg PO DAILY Seroquel (Quetiapine Fumarate) 25 Mg Tablet 75 Mg PO QHS Namenda (Memantine Hcl) 10 Mg Tablet 10 Mg PO BID Lovastatin 40 Mg Tablet 80 Mg PO QHS Levothyroxine Sodium 100 Mcg Tablet 100 Mcg PO DAILYAC Keppra (Levetiracetam) 500 Mg Tablet 500 Mg PO BID Heparin 5,000 Unit/5 ml-Ns (Heparin Sod,Porcine/0.9 % NaCl) 5,000 Unit/5 Ml Syringe 5,000 Unit IM Q8HRS Vitamin D2 (Ergocalciferol (Vitamin D2)) 50,000 Unit Capsule 50,000 Unit PO WEEKLY Benazepril Hcl 20 Mg Tablet 20 Mg PO DAILY Aspirin 81 Mg Tab.chew 81 Mg PO DAILY Amlodipine Besylate 5 Mg Tablet 5 Mg PO DAILY Tylenol (Acetaminophen) 325 Mg Tablet 650 Mg PO PRN Q4HRS PRN I have reviewed the current psychotropics carefully including drug interactions. Risk benefit ratio favors no change other than as noted in my dictated progress note. Diagnosis: Problems: (1) Anxiety disorder (2) Mild cognitive disorder (3) Major depressive disorder, recurrent episode (4) Impulse control disorder ANTONIA BAILEY MD Aug 15, 2018 23:03
[2018-08-16] MEDS: LEVOTHYROXINE 100 MCG TABLET PO SCH (05:19)
[2018-08-16] MEDS: HEPARIN PF for SUB-Q USE 5,000 UNIT/0.5 ML VIAL. SQ SCH ×3 (05:27→19:30)
[2018-08-16 06:05] VITALS: BP 144/83
[2018-08-16] MEDS: INSULIN LISPRO 300 UNITS/3 ML INSULN.PEN. SQ SCH ×3 (08:00→16:58)
[2018-08-16 08:21] LABS: BILIRUBIN,URINE NEG (NEG); CLARITY,URINE TURBID; COLOR,URINE AMBER; GLUCOSE,URINE NEG (NEG); UROBILINOGEN,URINE 1 mg/dL (0.2 mg/dL)
[2018-08-16 08:22] LABS: BACTERIA,URINE FEW /HPF (0-FEW); NITRITE,URINE NEG (NEG); RBC,URINE RARE /HPF (0-2); SQUAMOUS EPITHELIAL CELL,UR MANY /LPF; WBC,URINE >40 /HPF (0-4); YEAST,URINE PRESENT /HPF
[2018-08-16] MEDS: levETIRAcetam 500 MG TABLET PO SCH ×2 (08:46→19:27)
[2018-08-16] MEDS: amLODIPine BESYLATE 5 MG TABLET PO SCH (08:47)
[2018-08-16] MEDS: LACTOBACILLUS RHAMNOSUS GG 1 CAPSULE. PO SCH ×2 (08:47→19:27)
[2018-08-16] MEDS: DULoxetine HCL 60 MG CAPSULE.DR PO SCH (08:47)
[2018-08-16] MEDS: QUEtiapine 25 MG TABLET. PO SCH ×2 (08:47→19:27)
[2018-08-16] MEDS: ASPIRIN 81 MG TAB.CHEW PO SCH (08:47)
[2018-08-16] MEDS: LISINOPRIL 20 MG TABLET PO SCH (08:48)
[2018-08-16] MEDS: MEMANTINE 10 MG TABLET. PO SCH ×2 (08:48→19:27)
[2018-08-16] MEDS: CEPHALEXIN 250 MG CAPSULE PO SCH ×3 (08:48→19:27)
[2018-08-16 15:27] LABS: BASO # 0.1 x10^3/uL (0.0-0.2); BASO % 1 % (0-3); EOS # 0.3 x10^3/uL (0.0-0.7); EOS % 4 % (0-3); HEMATOCRIT 36.5 % (36.0-47.0); HEMOGLOBIN 12.4 g/dL (12.0-15.5); LYMPH # 1.9 x10^3/uL (1.0-4.8); LYMPH % 31 % (24-48); MEAN CORPUSCULAR HEMOGLOBIN 31 pg (25-35); MEAN CORPUSCULAR HGB CONC 34 g/dL (31-37); MEAN CORPUSCULAR VOLUME 91 fL (79-100); MONO # 0.4 x10^3/uL (0.0-1.1); MONO % 6 % (0-9); NEUT # 3.5 x10^3uL (1.8-7.7); NEUT % 58 % (31-73); PLATELET COUNT 246 x10^3/uL (140-400); RED BLOOD COUNT 4.02 x10^6/uL (3.50-5.40); RED CELL DISTRIBUTION WIDTH 14.5 % (11.5-14.5); WHITE BLOOD COUNT 6.1 x10^3/uL (4.0-11.0)
[2018-08-16 15:40] LABS: ALBUMIN 3.6 g/dL (3.4-5.0); ALBUMIN/GLOBULIN RATIO 0.8 (1.0-1.7); CALCIUM 9.5 mg/dL (8.5-10.1); CREATININE 0.9 mg/dL (0.6-1.0); MAGNESIUM 1.9 mg/dL (1.8-2.4); POTASSIUM 3.4 mmol/L (3.5-5.1); TOTAL BILIRUBIN 0.4 mg/dL (0.2-1.0); TOTAL PROTEIN 7.9 g/dL (6.4-8.2)
[2018-08-16 16:07] VITALS: BP 110/78
[2018-08-16] MEDS: ATORVASTATIN CALCIUM 20 MG TABLET PO SCH (19:27)
--- NOTE | 2018-08-16 22:06 | PN ---
DATE: 08/14/2018 This is a late entry for 08/14/2018 covers elements not covered in my initial note. SUBJECTIVE: I met with the patient in the evening. The patient slept 7-1/2 hours previous night. She has had a better day, less tearful, less depressed. REVIEW OF SYSTEMS: Ambulation impaired, in wheelchair. No CV, , pulmonary, eye, ENT system symptoms on review. MENTAL STATUS EXAM: Oriented to herself and situation. Speech has some latency, coherent. Abstraction fair, computation impaired, language function intact, attention span short. Mood and affect is improved. No suicidal ideation, still depressed, but much improved. LABORATORY DATA: Reviewed. IMPRESSION: Major depressive disorder, recurrent with psychotic features, in partial remission; anxiety disorder, unspecified; cognitive disorder, unspecified. Rest unchanged. PLAN: No change from initial note. Continue Cymbalta increasing to 60 mg a day, Seroquel 25 mg a.m. and 75 at bedtime, Namenda 10 b.i.d., Keppra 500 b.i.d. for seizures. MAN Han BAILEY MD DR: RAYMON/christen JOB#: [id number] / [id number]
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
--- NOTE | 2018-08-17 01:59 | PN ---
DATE: 08/16/2018 SUBJECTIVE: The patient was seen today, met with the staff, chart reviewed. The patient's behavior problems continues to worsen, frequent crying spells. The patient is also confused. The patient also had two CVAs, increased confusion. Staff reports no major falls. OBSERVATION: VITAL SIGNS: Temperature 98.6, blood pressure 144/83, pulse 72, respirations 22, O2 sat 96%. Slept about 6 hours last night. The patient's appetite is fair. MEDICATIONS: Reviewed. Currently on Cymbalta 60 mg daily, Seroquel 25 mg daily and 75 mg at night, Namenda 10 mg b.i.d. The patient is not having any side effects to the medications. ASSESSMENT: 1. Major depressive disorder, recurrent with psychotic features. 2. Generalized anxiety disorder. 3. Obsessive-compulsive disorder, mild cognitive impairment. PLAN: Continue with the current treatment. BERKLEY KEARNS MD DR: CARLTON/christen JOB#: [id number] / [id number]
[2018-08-17 05:36] VITALS: BP 147/77
[2018-08-17] MEDS: LEVOTHYROXINE 100 MCG TABLET PO SCH (05:58)
[2018-08-17] MEDS: HEPARIN PF for SUB-Q USE 5,000 UNIT/0.5 ML VIAL. SQ SCH ×3 (06:01→19:34)
[2018-08-17] MEDS: INSULIN LISPRO 300 UNITS/3 ML INSULN.PEN. SQ SCH ×3 (09:05→17:00)
[2018-08-17] MEDS: DULoxetine HCL 60 MG CAPSULE.DR PO SCH (09:06)
[2018-08-17] MEDS: CEPHALEXIN 250 MG CAPSULE PO SCH ×3 (09:06→19:34)
[2018-08-17] MEDS: ASPIRIN 81 MG TAB.CHEW PO SCH (09:06)
[2018-08-17] MEDS: LACTOBACILLUS RHAMNOSUS GG 1 CAPSULE. PO SCH ×2 (09:06→19:34)
[2018-08-17] MEDS: amLODIPine BESYLATE 5 MG TABLET PO SCH (09:07)
[2018-08-17] MEDS: levETIRAcetam 500 MG TABLET PO SCH ×2 (09:07→19:34)
[2018-08-17] MEDS: MEMANTINE 10 MG TABLET. PO SCH ×2 (09:07→19:34)
[2018-08-17] MEDS: LISINOPRIL 20 MG TABLET PO SCH (09:08)
[2018-08-17] MEDS: QUEtiapine 25 MG TABLET. PO SCH ×2 (09:08→19:34)
[2018-08-17 15:39] VITALS: BP 135/80
[2018-08-17] MEDS: ATORVASTATIN CALCIUM 20 MG TABLET PO SCH (19:33)
--- NOTE | 2018-08-17 20:30 | PN ---
DATE: 08/17/2018 SUBJECTIVE: The patient was seen today, met with the staff, and chart reviewed. The patient is pleasant, denies any problems. She wants to go home. The patient reports periods of depression, apparently the patient exhibiting significant emotional lability. Apparently, the patient had 2 CVAs in the past. The patient also gets confused. OBJECTIVE: Temperature 98.0, blood pressure 147/77, pulse 82, respirations 20, O2 sat 96%. Slept about 8 hours last night. The patient's appetite improved. LABORATORY DATA: The patient's labs reviewed. MEDICATIONS: Include Cymbalta 60 mg daily, Seroquel 25 mg daily and 75 mg at night, Namenda 10 mg b.i.d. The patient does not have any side effects from the medication. ASSESSMENT: 1. Major depressive disorder, recurrent with psychotic features. 2. Generalized anxiety disorder. 3. Obsessive compulsive disorder. 4. Mild cognitive impairment. PLAN: Continue the treatment. ANN MARIE VALERIO MD DR: MARCUS/christen JOB#: [id number] / [id number]
[2018-08-18 05:33] VITALS: BP 130/76
[2018-08-18] MEDS: LEVOTHYROXINE 100 MCG TABLET PO SCH (06:04)
[2018-08-18] MEDS: HEPARIN PF for SUB-Q USE 5,000 UNIT/0.5 ML VIAL. SQ SCH ×3 (06:04→21:12)
[2018-08-18] MEDS: INSULIN LISPRO 300 UNITS/3 ML INSULN.PEN. SQ SCH ×3 (07:49→17:00)
[2018-08-18] MEDS: MEMANTINE 10 MG TABLET. PO SCH ×2 (08:45→21:08)
[2018-08-18] MEDS: CEPHALEXIN 250 MG CAPSULE PO SCH ×3 (08:46→21:08)
[2018-08-18] MEDS: levETIRAcetam 500 MG TABLET PO SCH ×2 (08:46→21:08)
[2018-08-18] MEDS: LACTOBACILLUS RHAMNOSUS GG 1 CAPSULE. PO SCH ×2 (08:46→21:08)
[2018-08-18] MEDS: LISINOPRIL 20 MG TABLET PO SCH (08:46)
[2018-08-18] MEDS: ASPIRIN 81 MG TAB.CHEW PO SCH (08:49)
[2018-08-18] MEDS: amLODIPine BESYLATE 5 MG TABLET PO SCH (08:53)
[2018-08-18] MEDS: QUEtiapine 25 MG TABLET. PO SCH ×2 (08:53→21:08)
[2018-08-18] MEDS: DULoxetine HCL 60 MG CAPSULE.DR PO SCH (08:53)
[2018-08-18 17:12] VITALS: BP 151/84
--- NOTE | 2018-08-18 20:27 | PN ---
DATE: 08/18/2018 SUBJECTIVE: The patient was seen today, met with the staff, chart reviewed. The patient continues to be depressed, periods of depression and also episodes of confusion. The patient's behavior fluctuates. The patient apparently had two CVAs in the past. OBSERVATION: VITAL SIGNS: Temperature 98.4, blood pressure 130/76, pulse 97, respirations 20, O2 sat 95%. Slept about 8 hours last night. The patient is not having any side effects to the medications. CURRENT MEDICATIONS: Currently, she is on Cymbalta, Seroquel and Namenda. ASSESSMENT: 1. Major depressive disorder, recurrent with psychotic features. 2. Generalized anxiety disorder. 3. Obsessive compulsive disorder. 4. Mild cognitive impairment. PLAN: To continue with the treatment. BERKLEY KEARNS MD DR: CARLTON/christen JOB#: [id number] / [id number]
[2018-08-18] MEDS: ATORVASTATIN CALCIUM 20 MG TABLET PO SCH (21:08)
[2018-08-19] MEDS: LEVOTHYROXINE 100 MCG TABLET PO SCH (05:38)
[2018-08-19] MEDS: HEPARIN PF for SUB-Q USE 5,000 UNIT/0.5 ML VIAL. SQ SCH ×3 (05:39→20:53)
[2018-08-19 06:34] VITALS: BP 120/73
[2018-08-19] MEDS: INSULIN LISPRO 300 UNITS/3 ML INSULN.PEN. SQ SCH ×3 (08:00→17:25)
[2018-08-19] MEDS: ASPIRIN 81 MG TAB.CHEW PO SCH (09:44)
[2018-08-19] MEDS: MEMANTINE 10 MG TABLET. PO SCH ×2 (09:45→20:52)
[2018-08-19] MEDS: CEPHALEXIN 250 MG CAPSULE PO SCH ×3 (09:45→20:52)
[2018-08-19] MEDS: LACTOBACILLUS RHAMNOSUS GG 1 CAPSULE. PO SCH ×2 (09:45→20:52)
[2018-08-19] MEDS: levETIRAcetam 500 MG TABLET PO SCH ×2 (09:45→20:52)
[2018-08-19] MEDS: DULoxetine HCL 60 MG CAPSULE.DR PO SCH (09:45)
[2018-08-19] MEDS: amLODIPine BESYLATE 5 MG TABLET PO SCH (09:46)
[2018-08-19] MEDS: QUEtiapine 25 MG TABLET. PO SCH ×2 (09:46→20:52)
[2018-08-19] MEDS: LISINOPRIL 20 MG TABLET PO SCH (09:46)
[2018-08-19 10:29] LABS: ALBUMIN 3.3 g/dL (3.4-5.0); ALBUMIN/GLOBULIN RATIO 0.8 (1.0-1.7); CALCIUM 9.2 mg/dL (8.5-10.1); CREATININE 0.8 mg/dL (0.6-1.0); GFR 69.9; POTASSIUM 3.7 mmol/L (3.5-5.1); TOTAL BILIRUBIN 0.4 mg/dL (0.2-1.0); TOTAL PROTEIN 7.5 g/dL (6.4-8.2)
[2018-08-19 15:09] LABS: BASO # 0.1 x10^3/uL (0.0-0.2); BASO % 1 % (0-3); EOS # 0.2 x10^3/uL (0.0-0.7); EOS % 3 % (0-3); HEMATOCRIT 37.4 % (36.0-47.0); HEMOGLOBIN 12.4 g/dL (12.0-15.5); LYMPH # 2.2 x10^3/uL (1.0-4.8); LYMPH % 35 % (24-48); MEAN CORPUSCULAR HEMOGLOBIN 31 pg (25-35); MEAN CORPUSCULAR HGB CONC 33 g/dL (31-37); MEAN CORPUSCULAR VOLUME 93 fL (79-100); MONO # 0.4 x10^3/uL (0.0-1.1); MONO % 6 % (0-9); NEUT # 3.5 x10^3uL (1.8-7.7); NEUT % 55 % (31-73); PLATELET COUNT 197 x10^3/uL (140-400); RED BLOOD COUNT 4.04 x10^6/uL (3.50-5.40); RED CELL DISTRIBUTION WIDTH 14.7 % (11.5-14.5); WHITE BLOOD COUNT 6.4 x10^3/uL (4.0-11.0)
[2018-08-19 16:12] VITALS: BP 103/71
[2018-08-19] MEDS: ATORVASTATIN CALCIUM 20 MG TABLET PO SCH (21:00)
--- NOTE | 2018-08-20 00:22 | PN ---
DATE: 08/19/2018 SUBJECTIVE: The patient was seen today, met with the staff, chart reviewed. The patient continues to complain of feeling depressed, also episodes of confusion. The patient also worried, high level of anxiety focusing on her physical symptoms. VITAL SIGNS: Temperature 97.7, blood pressure 109/72, pulse 87, respirations 20, and O2 sat 97%. Slept about 6-1/2 hours last night. The patient's appetite is improved. MEDICATIONS: The patient's current medications include Cymbalta 60 mg daily, Seroquel 25 mg daily and 75 mg at night, and Namenda 10 mg b.i.d. The patient is also on Keppra 500 mg b.i.d. p.o. The patient is not having any side effects, no major medical complaints. ASSESSMENT: 1. Major depressive disorder, recurrent with psychotic features. 2. Generalized anxiety disorder. 3. Obsessive compulsive disorder. 4. Mild cognitive disorder. PLAN: To continue with the treatment. BERKLEY KEARNS MD DR: CARLTON/christen JOB#: [id number] / [id number]
[2018-08-20 05:54] VITALS: BP 148/80
[2018-08-20] MEDS: LEVOTHYROXINE 100 MCG TABLET PO SCH (05:56)
[2018-08-20] MEDS: HEPARIN PF for SUB-Q USE 5,000 UNIT/0.5 ML VIAL. SQ SCH ×3 (05:57→19:29)
[2018-08-20] MEDS: MEMANTINE 10 MG TABLET. PO SCH ×2 (07:53→19:28)
[2018-08-20] MEDS: LISINOPRIL 20 MG TABLET PO SCH (07:53)
[2018-08-20] MEDS: LACTOBACILLUS RHAMNOSUS GG 1 CAPSULE. PO SCH ×2 (07:53→19:28)
[2018-08-20] MEDS: ASPIRIN 81 MG TAB.CHEW PO SCH (07:53)
[2018-08-20] MEDS: levETIRAcetam 500 MG TABLET PO SCH ×2 (07:54→19:28)
[2018-08-20] MEDS: amLODIPine BESYLATE 5 MG TABLET PO SCH (07:54)
[2018-08-20] MEDS: DULoxetine HCL 60 MG CAPSULE.DR PO SCH (07:54)
[2018-08-20] MEDS: CEPHALEXIN 250 MG CAPSULE PO SCH ×3 (07:56→19:28)
[2018-08-20] MEDS: INSULIN LISPRO 300 UNITS/3 ML INSULN.PEN. SQ SCH ×3 (07:57→17:39)
[2018-08-20] MEDS: QUEtiapine 25 MG TABLET. PO SCH ×2 (07:57→19:27)
[2018-08-20 16:05] VITALS: BP 135/81
[2018-08-20] MEDS: ATORVASTATIN CALCIUM 20 MG TABLET PO SCH (19:28)
[2018-08-21 05:40] VITALS: BP 120/75
[2018-08-21] MEDS: LEVOTHYROXINE 100 MCG TABLET PO SCH (06:01)
[2018-08-21] MEDS: HEPARIN PF for SUB-Q USE 5,000 UNIT/0.5 ML VIAL. SQ SCH ×3 (06:01→19:58)
[2018-08-21] MEDS: INSULIN LISPRO 300 UNITS/3 ML INSULN.PEN. SQ SCH ×3 (08:00→17:30)
[2018-08-21] MEDS: MEMANTINE 10 MG TABLET. PO SCH ×2 (08:48→19:55)
[2018-08-21] MEDS: LISINOPRIL 20 MG TABLET PO SCH (08:48)
[2018-08-21] MEDS: LACTOBACILLUS RHAMNOSUS GG 1 CAPSULE. PO SCH ×2 (08:48→19:56)
[2018-08-21] MEDS: levETIRAcetam 500 MG TABLET PO SCH ×2 (08:49→19:54)
[2018-08-21] MEDS: QUEtiapine 25 MG TABLET. PO SCH ×2 (08:49→19:54)
[2018-08-21] MEDS: ASPIRIN 81 MG TAB.CHEW PO SCH (08:49)
[2018-08-21] MEDS: amLODIPine BESYLATE 5 MG TABLET PO SCH (09:00)
[2018-08-21] MEDS: DULoxetine HCL 60 MG CAPSULE.DR PO SCH (09:34)
[2018-08-21 16:18] VITALS: BP 154/81
[2018-08-21] MEDS: ACETAMINOPHEN 325 MG TABLET PO PRN (18:12)
[2018-08-21] MEDS: ATORVASTATIN CALCIUM 20 MG TABLET PO SCH (19:55)
--- NOTE | 2018-08-21 20:41 | PN ---
DATE: 08/21/2018 SUBJECTIVE: The patient was seen today, met with the staff, chart reviewed. Staff reports that the patient is staying in bed most of the day and the patient admits she is having lot of pain, generalized, uncontrollable. The patient is also exhibiting fluctuating mood lately, continues to worry high level of anxiety. OBSERVATION: VITAL SIGNS: Temperature 97.9, blood pressure 120/75, pulse 95, respirations 18, O2 sat 95%. Slept about 9 hours last night. The patient is apparently not exhibiting any side effects to the medications. MEDICATIONS: Currently on Cymbalta 60 mg daily, Seroquel 25 mg daily and 75 mg at night, Namenda 10 mg b.i.d. The patient is also on Keppra 500 mg b.i.d. p.o. The patient denies of any side effects. ASSESSMENT: 1. Major depressive disorder, recurrent with psychotic features. 2. Generalized anxiety disorder. 3. Obsessive compulsive disorder. 4. Mild cognitive disorder. PLAN: To continue with the treatment. BERKLEY KEARNS MD DR: CARLTON/christen JOB#: [id number] / [id number]
[2018-08-22 05:58] VITALS: BP 137/73
[2018-08-22] MEDS: LEVOTHYROXINE 100 MCG TABLET PO SCH (06:13)
[2018-08-22] MEDS: HEPARIN PF for SUB-Q USE 5,000 UNIT/0.5 ML VIAL. SQ SCH ×3 (06:13→20:11)
[2018-08-22] MEDS: INSULIN LISPRO 300 UNITS/3 ML INSULN.PEN. SQ SCH ×3 (07:43→17:00)
[2018-08-22] MEDS: ASPIRIN 81 MG TAB.CHEW PO SCH (07:44)
[2018-08-22] MEDS: LACTOBACILLUS RHAMNOSUS GG 1 CAPSULE. PO SCH ×2 (07:44→20:05)
[2018-08-22] MEDS: DULoxetine HCL 60 MG CAPSULE.DR PO SCH (07:44)
[2018-08-22] MEDS: MEMANTINE 10 MG TABLET. PO SCH ×2 (07:44→20:05)
[2018-08-22] MEDS: CHOLECALCIFEROL (VITAMIN D3) 50,000 UNIT CAPSULE PO SCH (07:44)
[2018-08-22] MEDS: levETIRAcetam 500 MG TABLET PO SCH ×2 (07:44→20:05)
[2018-08-22] MEDS: amLODIPine BESYLATE 5 MG TABLET PO SCH (07:45)
[2018-08-22] MEDS: LISINOPRIL 20 MG TABLET PO SCH (07:45)
[2018-08-22] MEDS: QUEtiapine 25 MG TABLET. PO SCH ×2 (07:46→20:07)
[2018-08-22 12:08] LABS: ALBUMIN 3.3 g/dL (3.4-5.0); ALBUMIN/GLOBULIN RATIO 0.9 (1.0-1.7); CREATININE 0.8 mg/dL (0.6-1.0); GFR 69.9; POTASSIUM 4.1 mmol/L (3.5-5.1); TOTAL BILIRUBIN 0.4 mg/dL (0.2-1.0)
[2018-08-22 15:56] VITALS: BP 155/87
--- NOTE | 2018-08-22 19:07 | PN ---
DATE: 08/22/2018 SUBJECTIVE: The patient was seen today, met with the staff, chart reviewed. The patient's behavior has improved slightly today, met with her family today and they are concerned about the patient's lesion on her left foot and Dr. Anguiano will see her. OBSERVATION: VITAL SIGNS: Temperature 98.5, blood pressure 155/87, pulse 72, respirations 17, O2 sat 98%. GENERAL: The patient's appetite improved. The patient's sleep varies. The patient is currently not depressed. MEDICATIONS: The patient's medications reviewed, currently on Cymbalta, Seroquel, Namenda, and Keppra. She is not having any major side effects. ASSESSMENT 1. Major depressive disorder, recurrent with psychotic features. 2. Generalized anxiety disorder. 3. Obsessive compulsive disorder, mild cognitive disorder. PLAN: Continue with the treatment. BERKLEY KEARNS MD DR: CARLTON/christen JOB#: [id number] / [id number]
[2018-08-22] MEDS: ATORVASTATIN CALCIUM 20 MG TABLET PO SCH (20:05)
[2018-08-22 21:21] LABS: BACTERIA,URINE FEW /HPF (0-FEW); BILIRUBIN,URINE NEG (NEG); CLARITY,URINE CLOUDY; COLOR,URINE YELLOW; GLUCOSE,URINE NEG (NEG); NITRITE,URINE NEG (NEG); RBC,URINE RARE /HPF (0-2); SQUAMOUS EPITHELIAL CELL,UR MANY /LPF; UROBILINOGEN,URINE 1 mg/dL (0.2 mg/dL)
[2018-08-22 21:22] LABS: YEAST,URINE PRESENT /HPF
[2018-08-23 05:36] VITALS: BP 100/64
[2018-08-23] MEDS: LEVOTHYROXINE 100 MCG TABLET PO SCH (06:31)
[2018-08-23] MEDS: HEPARIN PF for SUB-Q USE 5,000 UNIT/0.5 ML VIAL. SQ SCH ×3 (06:32→19:50)
[2018-08-23] MEDS: ASPIRIN 81 MG TAB.CHEW PO SCH (07:53)
[2018-08-23] MEDS: levETIRAcetam 500 MG TABLET PO SCH ×2 (07:53→19:48)
[2018-08-23] MEDS: QUEtiapine 25 MG TABLET. PO SCH ×2 (07:53→19:48)
[2018-08-23] MEDS: LACTOBACILLUS RHAMNOSUS GG 1 CAPSULE. PO SCH ×2 (07:53→19:48)
[2018-08-23] MEDS: amLODIPine BESYLATE 5 MG TABLET PO SCH (07:54)
[2018-08-23] MEDS: MEMANTINE 10 MG TABLET. PO SCH ×2 (07:54→19:48)
[2018-08-23] MEDS: LISINOPRIL 20 MG TABLET PO SCH (07:55)
[2018-08-23] MEDS: DULoxetine HCL 60 MG CAPSULE.DR PO SCH (07:57)
[2018-08-23] MEDS: INSULIN LISPRO 300 UNITS/3 ML INSULN.PEN. SQ SCH ×3 (07:59→17:00)
[2018-08-23] MEDS: ACETAMINOPHEN 325 MG TABLET PO PRN ×2 (09:37→21:22)
[2018-08-23 15:25] VITALS: BP 136/84
--- NOTE | 2018-08-23 18:41 | PN ---
DATE: 08/23/2018 SUBJECTIVE: The patient was seen today, met with the staff, chart reviewed. The patient has been staying in bed today. Still emotionally, labile and fluctuating mood. Staff reports no major problems. OBSERVATION: VITAL SIGNS: Temperature 97.8, blood pressure 100/64, pulse 88, respirations 20, O2 sat 97%. Slept about 7 hours last night. The patient's appetite is fair. MEDICATIONS: Reviewed. She is currently on Cymbalta, Seroquel, Namenda, Keppra. She is not having any major side effects from the medications. No major medical issues, no falls. ASSESSMENT: 1. Major depressive disorder, recurrent with psychotic features. 2. Generalized anxiety disorder. 3. Mild cognitive disorder. 4. Obsessive compulsive disorder. PLAN: To continue with the treatment. BERKLEY KEARNS MD DR: CARLTON/christen JOB#: [id number] / [id number]
[2018-08-23] MEDS: ATORVASTATIN CALCIUM 20 MG TABLET PO SCH (19:48)
[2018-08-24] MEDS: LEVOTHYROXINE 100 MCG TABLET PO SCH (05:31)
[2018-08-24] MEDS: HEPARIN PF for SUB-Q USE 5,000 UNIT/0.5 ML VIAL. SQ SCH ×3 (05:32→20:08)
[2018-08-24] MEDS: ACETAMINOPHEN 325 MG TABLET PO PRN ×2 (05:39→16:50)
[2018-08-24 05:57] VITALS: BP 123/74
[2018-08-24] MEDS: INSULIN LISPRO 300 UNITS/3 ML INSULN.PEN. SQ SCH ×3 (09:06→17:00)
[2018-08-24] MEDS: LACTOBACILLUS RHAMNOSUS GG 1 CAPSULE. PO SCH ×2 (09:07→20:06)
[2018-08-24] MEDS: ASPIRIN 81 MG TAB.CHEW PO SCH (09:07)
[2018-08-24] MEDS: QUEtiapine 25 MG TABLET. PO SCH ×2 (09:07→20:07)
[2018-08-24] MEDS: amLODIPine BESYLATE 5 MG TABLET PO SCH (09:08)
[2018-08-24] MEDS: LISINOPRIL 20 MG TABLET PO SCH (09:08)
[2018-08-24] MEDS: DULoxetine HCL 60 MG CAPSULE.DR PO SCH (09:09)
[2018-08-24] MEDS: MEMANTINE 10 MG TABLET. PO SCH ×2 (09:09→20:06)
[2018-08-24] MEDS: levETIRAcetam 500 MG TABLET PO SCH ×2 (09:09→20:06)
[2018-08-24 12:28] LABS: BASO # 0.1 x10^3/uL (0.0-0.2); BASO % 1 % (0-3); EOS # 0.2 x10^3/uL (0.0-0.7); EOS % 3 % (0-3); HEMATOCRIT 37.1 % (36.0-47.0); HEMOGLOBIN 12.4 g/dL (12.0-15.5); LYMPH # 2.1 x10^3/uL (1.0-4.8); LYMPH % 35 % (24-48); MEAN CORPUSCULAR HEMOGLOBIN 31 pg (25-35); MEAN CORPUSCULAR HGB CONC 33 g/dL (31-37); MEAN CORPUSCULAR VOLUME 92 fL (79-100); MONO # 0.4 x10^3/uL (0.0-1.1); MONO % 6 % (0-9); NEUT # 3.2 x10^3uL (1.8-7.7); NEUT % 55 % (31-73); PLATELET COUNT 240 x10^3/uL (140-400); RED BLOOD COUNT 4.05 x10^6/uL (3.50-5.40); RED CELL DISTRIBUTION WIDTH 14.4 % (11.5-14.5); WHITE BLOOD COUNT 5.9 x10^3/uL (4.0-11.0)
[2018-08-24 12:50] LABS: ALBUMIN 3.6 g/dL (3.4-5.0); ALBUMIN/GLOBULIN RATIO 0.8 (1.0-1.7); CALCIUM 9.5 mg/dL (8.5-10.1); CREATININE 0.8 mg/dL (0.6-1.0); GFR 69.9; POTASSIUM 3.8 mmol/L (3.5-5.1); TOTAL BILIRUBIN 0.5 mg/dL (0.2-1.0); TOTAL PROTEIN 8.2 g/dL (6.4-8.2)
[2018-08-24 16:15] VITALS: BP 113/64
[2018-08-24] MEDS ORDERED: OLANZapine IM 10 MG VIAL. IM PRN (17:45)
--- NOTE | 2018-08-24 19:49 | PN ---
DATE: 08/24/2018 SUBJECTIVE: The patient was seen today, met with the staff and also met with her family. Staff reports when the family visits, she becomes very delusional and paranoid, emotional lability and verbally abusive towards staff. The family is concerned they think the patient's behavior has worsened. OBSERVATION: VITAL SIGNS: Stable. GENERAL: The patient is sleeping fair. Appetite fair. The patient greatly has been showing mood swings, emotional lability. Today is the first time she has been angry, confused, accusing of everybody, not wanting anyone to be close to her. The patient has been compliant with the treatment. She is on wheelchair. MEDICATIONS: The patient's current medications include olanzapine 10 mg b.i.d. p.r.n., Cymbalta 60 mg daily, Seroquel 25 mg daily and 75 mg at night, Namenda 10 mg b.i.d. She is also on Keppra 500 mg b.i.d., Namenda 10 mg b.i.d. ASSESSMENT: 1. Major depressive disorder, recurrent with psychotic features. 2. Generalized anxiety disorder. 3. Mild cognitive disorder. 4. Brief reactive psychosis. PLAN: To continue with the treatment. BERKLEY KEARNS MD DR: CARLTON/christen JOB#: [id number] / [id number]
[2018-08-24] MEDS: ATORVASTATIN CALCIUM 20 MG TABLET PO SCH (20:06)
[2018-08-24] MEDS: MAGNESIUM HYDROXIDE 2,400 MG/30 ML ORAL.SUSP. PO PRN (21:05)
[2018-08-25 05:49] VITALS: BP 102/68
[2018-08-25] MEDS: LEVOTHYROXINE 100 MCG TABLET PO SCH (05:58)
[2018-08-25] MEDS: HEPARIN PF for SUB-Q USE 5,000 UNIT/0.5 ML VIAL. SQ SCH ×3 (06:00→22:37)
[2018-08-25] MEDS: LACTOBACILLUS RHAMNOSUS GG 1 CAPSULE. PO SCH ×2 (07:35→17:21)
[2018-08-25] MEDS: levETIRAcetam 500 MG TABLET PO SCH ×2 (07:35→17:21)
[2018-08-25] MEDS: INSULIN LISPRO 300 UNITS/3 ML INSULN.PEN. SQ SCH ×3 (07:36→17:00)
[2018-08-25] MEDS: MEMANTINE 10 MG TABLET. PO SCH ×2 (07:36→17:21)
[2018-08-25] MEDS: ASPIRIN 81 MG TAB.CHEW PO SCH (07:36)
[2018-08-25] MEDS: QUEtiapine 25 MG TABLET. PO SCH ×2 (07:36→17:21)
[2018-08-25] MEDS: DULoxetine HCL 60 MG CAPSULE.DR PO SCH (07:36)
[2018-08-25] MEDS: LISINOPRIL 20 MG TABLET PO SCH (07:37)
[2018-08-25] MEDS: amLODIPine BESYLATE 5 MG TABLET PO SCH (07:37)
--- NOTE | 2018-08-25 12:43 | PN ---
DATE: 08/25/2018 SUBJECTIVE: The patient was seen today, met with the staff, chart reviewed. The patient's behavior fluctuates. Yesterday, she was extremely angry, verbally abusive, very difficult to redirect. The patient today much calmer. The patient is beginning to show increased confusion. ____ The patient's medications reviewed. The patient currently not having any side effects to the medications. OBSERVATION: VITAL SIGNS: Temperature 97.8, blood pressure 102/68, pulse 91, respirations 18. Slept about 8 hours last night. ASSESSMENT: 1. Major depressive disorder, recurrent with psychotic features. 2. Generalized anxiety disorder. 3. 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 PLAN: To continue with the treatment. BERKLEY KEARNS MD DR: CARLTON/christen JOB#: [id number] / [id number]
[2018-08-25 16:28] VITALS: BP 126/73
[2018-08-25] MEDS: ATORVASTATIN CALCIUM 20 MG TABLET PO SCH (17:21)
[2018-08-25] MEDS: CEFPODOXIME PROXETIL 100 MG TABLET PO SCH ×2 (18:20→18:41)
[2018-08-25] MEDS: GABAPENTIN 100 MG CAPSULE. PO SCH (18:20)
[2018-08-26] MEDS: HEPARIN PF for SUB-Q USE 5,000 UNIT/0.5 ML VIAL. SQ SCH ×3 (05:54→23:16)
[2018-08-26 05:58] VITALS: BP 129/77
[2018-08-26] MEDS: LEVOTHYROXINE 100 MCG TABLET PO SCH (05:58)
[2018-08-26] MEDS: INSULIN LISPRO 300 UNITS/3 ML INSULN.PEN. SQ SCH ×3 (08:00→17:45)
[2018-08-26] MEDS: MEMANTINE 10 MG TABLET. PO SCH ×2 (08:26→20:09)
[2018-08-26] MEDS: LACTOBACILLUS RHAMNOSUS GG 1 CAPSULE. PO SCH ×2 (08:27→20:02)
[2018-08-26] MEDS: CEFPODOXIME PROXETIL 100 MG TABLET PO SCH ×2 (08:27→20:02)
[2018-08-26] MEDS: QUEtiapine 25 MG TABLET. PO SCH ×2 (08:27→20:09)
[2018-08-26] MEDS: GABAPENTIN 100 MG CAPSULE. PO SCH ×2 (08:28→20:02)
[2018-08-26] MEDS: levETIRAcetam 500 MG TABLET PO SCH ×2 (08:28→20:02)
[2018-08-26] MEDS: ASPIRIN 81 MG TAB.CHEW PO SCH (08:28)
[2018-08-26] MEDS: LISINOPRIL 20 MG TABLET PO SCH (08:28)
[2018-08-26] MEDS: DULoxetine HCL 60 MG CAPSULE.DR PO SCH (08:29)
[2018-08-26] MEDS: amLODIPine BESYLATE 5 MG TABLET PO SCH (08:30)
[2018-08-26 16:08] VITALS: BP 159/79
--- NOTE | 2018-08-26 16:44 | RAD ---
Left leg venous Doppler study: Clinical indications: Left leg swelling and pain. Findings: Duplex sonography (including savage scale evaluation and color flow and waveform spectral analysis) of the proximal aspect of the greater saphenous vein and the proximal aspect of the profunda femoral vein and the entire length of the common femoral and superficial femoral and popliteal veins and the tibioperoneal trunk and the proximal aspect of the posterior tibial and peroneal veins of the left leg was performed. Normal compressibility, augmentation of color Doppler flow after calf compression, and respiratory variation of Doppler flow is seen. Thus, there are no sonographic findings of deep venous thrombosis within these veins. Impression: There are no sonographic findings of deep venous thrombosis within the veins discussed above of the left lower extremity. Right leg venous Doppler study: Clinical indications: Right leg swelling and pain. Findings: Duplex sonography (including savage scale evaluation and color flow and waveform spectral analysis) of the proximal aspect of the greater saphenous vein and proximal aspect of the profunda femoral vein and the entire length of the common femoral and superficial femoral and popliteal veins and the tibioperoneal trunk and the proximal aspect of the posterior tibial and peroneal veins of the right leg was performed. Normal compressibility, augmentation of color Doppler flow after calf compression, and respiratory variation of Doppler flow is seen. Thus, there are no sonographic findings of deep venous thrombosis within these veins. Impression: There are no sonographic findings of deep venous thrombosis within the veins discussed above of the right lower extremity. Electronically signed by: Zach Geronimo MD (08/26/2018 4:40 PM) [id number]
--- NOTE | 2018-08-26 19:04 | PDOC ---
Exam Note: José Miguel Note: Please also refer to the separate dictated note~for this date of service dictated separately.~Patient seen individually. Discussed the patient with Nursing staff reviewed the chart.~Reviewed interim history and current functioning. Reviewed vital signs,~Labs/ Radiology~and current medications noted below. Continue current treatment with the changes noted in the dictated addendum note Assessment: Vital Signs: Vital Signs Date Time Temp Pulse Resp B/P (MAP) Pulse Ox O2 Delivery O2 Flow Rate FiO2 08/26/18 16:08 97.3 83 20 159/79 (105) 97 08/25/18 05:49 Room Air I&O Intake and Output 08/26/18 07:00 Intake Total 840 ml Balance 840 ml Intake Oral 840 ml # Bowel Movements 1 Labs: Laboratory Tests Test 08/25/18 19:08 08/26/18 07:19 08/26/18 11:55 08/26/18 17:34 Glucose (Fingerstick) 259 mg/dL (70-99) H 177 mg/dL (70-99) H 188 mg/dL (70-99) H 202 mg/dL (70-99) H Current Medications: Meds: Current Medications Acetaminophen (Tylenol) 650 mg PRN Q6HRS PRN PO PAIN / TEMP Last administered on 08/24/18at 16:50; Start 08/08/18 at 20:00 Multi-Ingredient Ointment (Analgesic [place]) 1 diana PRN QID PRN TP MUSCLE PAIN; Start 08/08/18 at 20:00 Al Hydroxide/Mg Hydroxide (Mylanta Plus Xs) 15 ml PRN AFTMEALHC PRN PO DYSPEPSIA; Start 08/08/18 at 20:00 Magnesium Hydroxide (Milk Of Magnesia) 2,400 mg PRN QHS PRN PO CONSTIPATION Last administered on 08/24/18at 21:05; Start 08/08/18 at 20:00 Memantine (Namenda) 10 mg BID PO Last administered on 08/26/18at 08:26; Start 08/08/18 at 22:00 Quetiapine Fumarate (SEROquel) 25 mg DAILY PO Last administered on 08/26/18 08:27; Start 08/09/18 at 09:00 Quetiapine Fumarate (SEROquel) 75 mg HS PO Last administered on 11/25/18at 17: 21; Start 08/08/18 at 22:00 Venlafaxine HCl (Effexor) 50 mg TID PO Last administered on 08/10/18at 13:40; Start 08/09/18 at 09:00; Stop 08/10/18 at 17:54; Status DC Acetaminophen (Tylenol) 650 mg PRN Q4HRS PRN PO PAIN / TEMP; Start 08/08/18 at 21:30; Status Cancel Levothyroxine Sodium (Synthroid) 100 mcg DAILY06 PO Last administered on 05:58; Start 08/09/18 at 06:00 Amlodipine Besylate (Norvasc) 5 mg DAILY PO Last administered on 08/26/18 08: 30; Start 08/09/18 at 09:00 Aspirin (Children'S Aspirin) 81 mg DAILY PO Last administered on 08/26/18 08: 28; Start 08/09/18 at 09:00 Lisinopril (Prinivil) 20 mg DAILY PO Last administered on 08/26/18 08:28; Start 08/09/18 at 09:00 Vitamin D (Vitamin D3) 50,000 unit WEEKLY PO Last administered on 08/22/18at 07 :44; Start 08/15/18 at 09:00 Heparin Sodium (Porcine) (Heparin Sq) 5,000 unit Q8HRS SQ Last administered on 08/26/18at 16:48; Start 08/08/18 at 22:00 Levetiracetam (Keppra) 500 mg BID PO Last administered on 08/26/18 08:28; Start 08/08/18 at 22:00 Atorvastatin Calcium (Lipitor) 20 mg QHS PO Last administered on 08/25/18 17: 21; Start 08/09/18 at 21:00 Insulin Human Lispro (HumaLOG) 0-5 UNITS TIDWMEALS SQ Last administered on at 17:45; Start 08/09/18 at 08:00 Dextrose 12.5 gm PRN Q15MIN PRN IV SEE COMMENTS; Start 08/09/18 at 05:45 Duloxetine HCl (Cymbalta) 30 mg DAILY PO Last administered on 08/12/18at 08:06 ; Start 08/11/18 at 09:00; Stop 08/12/18 at 09:02; Status DC Duloxetine HCl (Cymbalta) 60 mg DAILY PO Last administered on 08/26/18at 08:29 ; Start 08/13/18 at 09:00 Cephalexin HCl (Keflex) 500 mg TID PO Last administered on 08/20/18at 19:28; Start 08/11/18 at 09:00; Stop 08/21/18 at 08:59; Status DC Lactobacillus Rhamnosus (Culturelle) 1 cap BID PO Last administered on at 08:27; Start 08/11/18 at 09:00 Levothyroxine Sodium (Synthroid) 100 mcg 1X ONCE PO Last administered on 08/15at 06:23; Start 08/15/18 at 06:30; Stop 08/15/18 at 06:31; Status DC Olanzapine (ZyPREXA ZYDIS) 10 mg PRN BID PRN PO AGITATION; Start 08/24/18 at 17:45 Olanzapine (ZyPREXA IM) 5 mg PRN BID PRN IM AGITATION Last administered on at 17:53; Start 08/24/18 at 17:45 Cefpodoxime Proxetil (Vantin) 200 mg BID PO Last administered on 08/26/18at 08: 27; Start 08/25/18 at 17:30; Stop 09/01/18 at 17:29 Gabapentin (Neurontin) 100 mg BID PO Last administered on 08/26/18at 08:28; Start 08/25/18 at 21:00 Quetiapine Fumarate (SEROquel) 12.5 mg DAILY16 PO ; Start 08/27/18 at 16:00 Active Scripts Active Reported Venlafaxine Hcl Er (Venlafaxine Hcl) 150 Mg Tab.er.24 150 Mg PO DAILYWBKFT Quetiapine Fumarate 25 Mg Tablet 25 Mg PO DAILY Seroquel (Quetiapine Fumarate) 25 Mg Tablet 75 Mg PO QHS Namenda (Memantine Hcl) 10 Mg Tablet 10 Mg PO BID Lovastatin 40 Mg Tablet 80 Mg PO QHS Levothyroxine Sodium 100 Mcg Tablet 100 Mcg PO DAILYAC Keppra (Levetiracetam) 500 Mg Tablet 500 Mg PO BID Heparin 5,000 Unit/5 ml-Ns (Heparin Sod,Porcine/0.9 % NaCl) 5,000 Unit/5 Ml Syringe 5,000 Unit IM Q8HRS Vitamin D2 (Ergocalciferol (Vitamin D2)) 50,000 Unit Capsule 50,000 Unit PO WEEKLY Benazepril Hcl 20 Mg Tablet 20 Mg PO DAILY Aspirin 81 Mg Tab.chew 81 Mg PO DAILY Amlodipine Besylate 5 Mg Tablet 5 Mg PO DAILY Tylenol (Acetaminophen) 325 Mg Tablet 650 Mg PO PRN Q4HRS PRN I have reviewed the current psychotropics carefully including drug interactions. Risk benefit ratio favors no change other than as noted in my dictated progress note. Diagnosis: Problems: (1) Anxiety disorder (2) Mild cognitive disorder (3) Major depressive disorder, recurrent episode (4) Impulse control disorder ANTONIA BAILEY MD Aug 26, 2018 19:04
[2018-08-26] MEDS: ATORVASTATIN CALCIUM 20 MG TABLET PO SCH (20:09)
--- NOTE | 2018-08-26 23:14 | PN ---
DATE: 08/26/2018 SUBJECTIVE: The patient was seen today upon nursing staff request as she was complaining of pain in both her legs. They are markedly swollen. Swelling gets worse when she is sitting in her wheelchair; however, she denied any chest pain, shortness of breath, cough, phlegm or hemoptysis. OBJECTIVE: GENERAL: On examining her, she looked well and was clearly in no apparent respiratory distress. No pallor, jaundice, cyanosis, lymphadenopathy or thyromegaly. No jugular venous distension. No limb edema. VITAL SIGNS: Her heart rate was 89, blood pressure was 129/77, temperature was 97.6, respiratory rate was 20, and oxygen saturation was 96% on room air. HEAD, EYES, EARS, NOSE AND THROAT: Showed normocephalic, atraumatic. NECK: Supple. HEART: Showed normal first and second heart sounds with no gallop, rub or murmur. CHEST: Clear to auscultation. No crepitation or rhonchi. ABDOMEN: Distended, soft, nontender. No guarding or rigidity. No organomegaly. Hernial orifice intact. Bowel sounds normal. NEUROLOGIC: She is demented, but has no lateralizing sign. All her cranial nerves intact. She moves extremities without difficulty, although she is mostly bed bound, wheelchair bound. LABORATORY DATA: Available showed that her white cell count was 5900, hemoglobin 12.4, hematocrit 37, MCV 92, and platelet count 240,000. Her chemistry showed a serum sodium of 135, potassium 3.8, chloride 99, bicarbonate 27, anion gap of 9, BUN 14, creatinine 0.8, estimated GFR was 70 mL per minute. Her glucose was 191, calcium was 9.5. Total bilirubin, AST, ALT, alkaline phosphatase were normal. Total protein was 8.2, albumin was 3.6. ASSESSMENT: Marked bilateral lower extremity edema in a patient who is morbidly obese, mostly bedbound. She has also obstructive sleep apnea and likely right-sided heart failure. PLAN: My plan is to arrange for her to have venous Doppler ultrasound of both lower extremities given multiple high risk factors for DVT prophylaxis. LULÚ GODINEZ MD DR: JOSHUA/christen JOB#: [id number] / [id number]
[2018-08-27 05:53] VITALS: BP 119/71
[2018-08-27] MEDS: LEVOTHYROXINE 100 MCG TABLET PO SCH (05:57)
[2018-08-27] MEDS: HEPARIN PF for SUB-Q USE 5,000 UNIT/0.5 ML VIAL. SQ SCH ×3 (06:00→22:37)
[2018-08-27] MEDS: INSULIN LISPRO 300 UNITS/3 ML INSULN.PEN. SQ SCH ×3 (08:00→17:46)
[2018-08-27] MEDS: ASPIRIN 81 MG TAB.CHEW PO SCH (08:27)
[2018-08-27] MEDS: LACTOBACILLUS RHAMNOSUS GG 1 CAPSULE. PO SCH ×2 (08:27→19:49)
[2018-08-27] MEDS: amLODIPine BESYLATE 5 MG TABLET PO SCH (08:27)
[2018-08-27] MEDS: MEMANTINE 10 MG TABLET. PO SCH ×2 (08:27→19:49)
[2018-08-27] MEDS: DULoxetine HCL 60 MG CAPSULE.DR PO SCH (08:27)
[2018-08-27] MEDS: levETIRAcetam 500 MG TABLET PO SCH ×2 (08:27→19:49)
[2018-08-27] MEDS: CEFPODOXIME PROXETIL 100 MG TABLET PO SCH (08:28)
[2018-08-27] MEDS: LISINOPRIL 20 MG TABLET PO SCH (08:28)
[2018-08-27] MEDS: QUEtiapine 25 MG TABLET. PO SCH ×3 (08:28→19:49)
[2018-08-27] MEDS: GABAPENTIN 100 MG CAPSULE. PO SCH ×2 (08:28→19:49)
[2018-08-27 15:46] VITALS: BP 125/77
--- NOTE | 2018-08-27 19:02 | PDOC ---
Exam Note: José Miguel Note: Please also refer to the separate dictated note~for this date of service dictated separately.~Patient seen individually. Discussed the patient with Nursing staff reviewed the chart.~Reviewed interim history and current functioning. Reviewed vital signs,~Labs/ Radiology~and current medications noted below. Continue current treatment with the changes noted in the dictated addendum note Assessment: Vital Signs: Vital Signs Date Time Temp Pulse Resp B/P (MAP) Pulse Ox O2 Delivery O2 Flow Rate FiO2 08/27/18 15:46 98.1 89 18 125/77 (93) 96 Room Air I&O Intake and Output 08/27/18 07:00 Intake Total 480 ml Balance 480 ml Intake Oral 480 ml Labs: Laboratory Tests Test 08/26/18 19:39 08/27/18 07:14 08/27/18 11:59 08/27/18 17:01 Glucose (Fingerstick) 245 mg/dL (70-99) H 174 mg/dL (70-99) H 209 mg/dL (70-99) H 271 mg/dL (70-99) H Current Medications: Meds: Current Medications Acetaminophen (Tylenol) 650 mg PRN Q6HRS PRN PO PAIN / TEMP Last administered on 08/24/18at 16:50; Start 08/08/18 at 20:00 Multi-Ingredient Ointment (Analgesic [place]) 1 diana PRN QID PRN TP MUSCLE PAIN; Start 08/08/18 at 20:00 Al Hydroxide/Mg Hydroxide (Mylanta Plus Xs) 15 ml PRN AFTMEALHC PRN PO DYSPEPSIA; Start 08/08/18 at 20:00 Magnesium Hydroxide (Milk Of Magnesia) 2,400 mg PRN QHS PRN PO CONSTIPATION Last administered on 08/24/18at 21:05; Start 08/08/18 at 20:00 Memantine (Namenda) 10 mg BID PO Last administered on 08/27/18at 08:27; Start 08/08/18 at 22:00 Quetiapine Fumarate (SEROquel) 25 mg DAILY PO Last administered on 08/27/18at 08:28; Start 08/09/18 at 09:00 Quetiapine Fumarate (SEROquel) 75 mg HS PO Last administered on 08/26/18at 20: 09; Start 08/08/18 at 22:00 Venlafaxine HCl (Effexor) 50 mg TID PO Last administered on 08/10/18at 13:40; Start 08/09/18 at 09:00; Stop 08/10/18 at 17:54; Status DC Acetaminophen (Tylenol) 650 mg PRN Q4HRS PRN PO PAIN / TEMP; Start 08/08/18 at 21:30; Status Cancel Levothyroxine Sodium (Synthroid) 100 mcg DAILY06 PO Last administered on at 05:57; Start 08/09/18 at 06:00 Amlodipine Besylate (Norvasc) 5 mg DAILY PO Last administered on 08/27/18at 08: 27; Start 08/09/18 at 09:00 Aspirin (Children'S Aspirin) 81 mg DAILY PO Last administered on 08/27/18at 08: 27; Start 08/09/18 at 09:00 Lisinopril (Prinivil) 20 mg DAILY PO Last administered on 08/27/18at 08:28; Start 08/09/18 at 09:00 Vitamin D (Vitamin D3) 50,000 unit WEEKLY PO Last administered on 08/22/18at 07 :44; Start 08/15/18 at 09:00 Heparin Sodium (Porcine) (Heparin Sq) 5,000 unit Q8HRS SQ Last administered on 08/27/18at 17:45; Start 08/08/18 at 22:00; Stop 08/27/18 at 23:00 Levetiracetam (Keppra) 500 mg BID PO Last administered on 08/27/18at 08:27; Start 08/08/18 at 22:00 Atorvastatin Calcium (Lipitor) 20 mg QHS PO Last administered on 08/26/18at 20: 09; Start 08/09/18 at 21:00 Insulin Human Lispro (HumaLOG) 0-5 UNITS TIDWMEALS SQ Last administered on at 17:46; Start 08/09/18 at 08:00 Dextrose 12.5 gm PRN Q15MIN PRN IV SEE COMMENTS; Start 08/09/18 at 05:45 Duloxetine HCl (Cymbalta) 30 mg DAILY PO Last administered on 08/12/18at 08:06 ; Start 08/11/18 at 09:00; Stop 08/12/18 at 09:02; Status DC Duloxetine HCl (Cymbalta) 60 mg DAILY PO Last administered on 08/27/18at 08:27 ; Start 08/13/18 at 09:00 Cephalexin HCl (Keflex) 500 mg TID PO Last administered on 08/20/18at 19:28; Start 08/11/18 at 09:00; Stop 08/21/18 at 08:59; Status DC Lactobacillus Rhamnosus (Culturelle) 1 cap BID PO Last administered on at 08:27; Start 08/11/18 at 09:00 Levothyroxine Sodium (Synthroid) 100 mcg 1X ONCE PO Last administered on 08/15at 06:23; Start 08/15/18 at 06:30; Stop 08/15/18 at 06:31; Status DC Olanzapine (ZyPREXA ZYDIS) 10 mg PRN BID PRN PO AGITATION; Start 08/24/18 at 17:45 Olanzapine (ZyPREXA IM) 5 mg PRN BID PRN IM AGITATION Last administered on at 17:53; Start 08/24/18 at 17:45 Cefpodoxime Proxetil (Vantin) 200 mg BID PO Last administered on 08/27/18at 08: 28; Start 08/25/18 at 17:30; Stop 08/27/18 at 17:27; Status DC Gabapentin (Neurontin) 100 mg BID PO Last administered on 08/27/18at 08:28; Start 08/25/18 at 21:00 Quetiapine Fumarate (SEROquel) 12.5 mg DAILY16 PO Last administered on at 16:00; Start 08/27/18 at 16:00 Heparin Sodium (Porcine) (Heparin Sodium) 5,000 unit Q8HRS SQ ; Start 08/28/18 at 06:00 Ciprofloxacin (Cipro) 500 mg BID PO ; Start 08/27/18 at 21:00; Stop 09/06/18 at 20:59 Active Scripts Active Reported Venlafaxine Hcl Er (Venlafaxine Hcl) 150 Mg Tab.er.24 150 Mg PO DAILYWBKFT Quetiapine Fumarate 25 Mg Tablet 25 Mg PO DAILY Seroquel (Quetiapine Fumarate) 25 Mg Tablet 75 Mg PO QHS Namenda (Memantine Hcl) 10 Mg Tablet 10 Mg PO BID Lovastatin 40 Mg Tablet 80 Mg PO QHS Levothyroxine Sodium 100 Mcg Tablet 100 Mcg PO DAILYAC Keppra (Levetiracetam) 500 Mg Tablet 500 Mg PO BID Heparin 5,000 Unit/5 ml-Ns (Heparin Sod,Porcine/0.9 % NaCl) 5,000 Unit/5 Ml Syringe 5,000 Unit IM Q8HRS Vitamin D2 (Ergocalciferol (Vitamin D2)) 50,000 Unit Capsule 50,000 Unit PO WEEKLY Benazepril Hcl 20 Mg Tablet 20 Mg PO DAILY Aspirin 81 Mg Tab.chew 81 Mg PO DAILY Amlodipine Besylate 5 Mg Tablet 5 Mg PO DAILY Tylenol (Acetaminophen) 325 Mg Tablet 650 Mg PO PRN Q4HRS PRN I have reviewed the current psychotropics carefully including drug interactions. Risk benefit ratio favors no change other than as noted in my dictated progress note. Diagnosis: Problems: (1) Anxiety disorder (2) Mild cognitive disorder (3) Major depressive disorder, recurrent episode (4) Impulse control disorder ANTONIA BAILEY MD Aug 27, 2018 19:02
[2018-08-27] MEDS: ATORVASTATIN CALCIUM 20 MG TABLET PO SCH (19:49)
[2018-08-27] MEDS: CIPROFLOXACIN HCL 500 MG TABLET PO SCH (19:50)
--- NOTE | 2018-08-28 02:30 | PN ---
DATE: 08/26/2018 This is a late entry for 08/26/2018 covers elements not covered in my initial note. SUBJECTIVE: I met with the patient in the evening. The patient slept 7 hours previous night. I reviewed the patient's progress with Dr. Dimas, who had covered for me over the past 1 week. During the day, she has been tearful, gets somewhat paranoid at times, received Zyprexa. At times, she is spending much time in bed. Reviewed her history. She was living at home with [id number] prior to coming here. REVIEW OF SYSTEMS: Ambulation impaired, in wheelchair. No CV, , pulmonary, eye system symptoms on review. Reliability varies. MENTAL STATUS EXAM: Oriented to herself and situation. Speech is coherent, has some latency. Abstraction fair, computation impaired, language function intact, attention span short. Mood and affect remain somewhat depressed, withdrawn, labile at times. LABORATORY DATA: Reviewed. IMPRESSION: Major depressive disorder with psychotic features; anxiety disorder, unspecified. Rest unchanged. PLAN: Continue Seroquel 25 mg a.m. and 75 at bedtime. Add Seroquel 12.5 mg at 03:00 p.m. Maintain Namenda 10 b.i.d. She is on Keppra 500 mg b.i.d. for seizures, Cymbalta 60 mg a day, Zyprexa p.r.n. MAN Han BAILEY MD DR: RAYMON/christen JOB#: [id number] / [id number]
[2018-08-28 05:59] VITALS: BP 109/69
[2018-08-28] MEDS: LEVOTHYROXINE 100 MCG TABLET PO SCH (06:17)
[2018-08-28] MEDS: HEPARIN for SUB-Q USE 5,000 UNIT/ML VIAL. SQ SCH ×3 (06:19→20:42)
[2018-08-28] MEDS: INSULIN LISPRO 300 UNITS/3 ML INSULN.PEN. SQ SCH ×3 (08:06→17:10)
[2018-08-28] MEDS: ASPIRIN 81 MG TAB.CHEW PO SCH (08:06)
[2018-08-28] MEDS: LACTOBACILLUS RHAMNOSUS GG 1 CAPSULE. PO SCH ×2 (08:07→20:45)
[2018-08-28] MEDS: CIPROFLOXACIN HCL 500 MG TABLET PO SCH ×2 (08:07→20:44)
[2018-08-28] MEDS: levETIRAcetam 500 MG TABLET PO SCH ×2 (08:07→20:45)
[2018-08-28] MEDS: MEMANTINE 10 MG TABLET. PO SCH ×2 (08:07→20:45)
[2018-08-28] MEDS: DULoxetine HCL 60 MG CAPSULE.DR PO SCH (08:07)
[2018-08-28] MEDS: LISINOPRIL 20 MG TABLET PO SCH (08:08)
[2018-08-28] MEDS: amLODIPine BESYLATE 5 MG TABLET PO SCH (08:08)
[2018-08-28] MEDS: GABAPENTIN 100 MG CAPSULE. PO SCH ×2 (08:08→20:44)
[2018-08-28] MEDS: QUEtiapine 25 MG TABLET. PO SCH ×3 (08:09→20:45)
[2018-08-28 09:24] LABS: BASO # 0.1 x10^3/uL (0.0-0.2); BASO % 1 % (0-3); EOS # 0.2 x10^3/uL (0.0-0.7); EOS % 4 % (0-3); HEMATOCRIT 34.5 % (36.0-47.0); HEMOGLOBIN 11.5 g/dL (12.0-15.5); LYMPH % 37 % (24-48); MEAN CORPUSCULAR HEMOGLOBIN 31 pg (25-35); MEAN CORPUSCULAR HGB CONC 33 g/dL (31-37); MEAN CORPUSCULAR VOLUME 93 fL (79-100); MONO # 0.2 x10^3/uL (0.0-1.1); MONO % 4 % (0-9); NEUT # 2.9 x10^3uL (1.8-7.7); NEUT % 54 % (31-73); PLATELET COUNT 214 x10^3/uL (140-400); RED BLOOD COUNT 3.71 x10^6/uL (3.50-5.40); RED CELL DISTRIBUTION WIDTH 15.2 % (11.5-14.5); WHITE BLOOD COUNT 5.3 x10^3/uL (4.0-11.0)
[2018-08-28 09:42] LABS: ALBUMIN 3.3 g/dL (3.4-5.0); ALBUMIN/GLOBULIN RATIO 0.8 (1.0-1.7); CALCIUM 9.2 mg/dL (8.5-10.1); CREATININE 0.9 mg/dL (0.6-1.0); POTASSIUM 3.8 mmol/L (3.5-5.1); TOTAL BILIRUBIN 0.4 mg/dL (0.2-1.0); TOTAL PROTEIN 7.5 g/dL (6.4-8.2)
[2018-08-28 16:38] VITALS: BP 103/68
[2018-08-28] MEDS: ATORVASTATIN CALCIUM 20 MG TABLET PO SCH (20:48)
--- NOTE | 2018-08-28 22:25 | PN ---
DATE: 08/27/2018 PSYCHIATRIC PROGRESS NOTE This late entry 08/27/2018 covers elements not covered in my initial note. SUBJECTIVE: I met with the patient in the evening. The patient slept 5-1/2 hours previous night. She has been somewhat delusional, depressed, did eat some breakfast and lunch with her hands. Less tearful. REVIEW OF SYSTEMS: Ambulation impaired, in wheelchair. No CV, , pulmonary, eye, ENT system symptoms on review. Reliability fair. MENTAL STATUS EXAM: Oriented to herself and situation. Speech has some latency, coherent. Abstraction fair, computation impaired, language function intact, attention span short. Mood and affect still depressed, but improved. No active suicidal ideation. LABORATORY DATA: Reviewed. 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 Rest unchanged. PLAN: No change from initial note. MAN Han BAILEY MD DR: RAYMON/christen JOB#: [id number] / [id number]
--- NOTE | 2018-08-28 22:57 | PDOC ---
Exam Note: José Miguel Note: Please also refer to the separate dictated note~for this date of service dictated separately.~Patient seen individually. Discussed the patient with Nursing staff reviewed the chart.~Reviewed interim history and current functioning. Reviewed vital signs,~Labs/ Radiology~and current medications noted below. Continue current treatment with the changes noted in the dictated addendum note Assessment: Vital Signs: Vital Signs Date Time Temp Pulse Resp B/P (MAP) Pulse Ox O2 Delivery O2 Flow Rate FiO2 08/28/18 16:38 98.4 79 16 103/68 (80) 95 08/27/18 15:46 Room Air I&O Intake and Output 08/28/18 07:00 Intake Total 1060 ml Balance 1060 ml Intake Oral 1060 ml Labs: Laboratory Tests Test 08/28/18 07:29 08/28/18 09:09 08/28/18 11:45 08/28/18 16:59 Glucose (Fingerstick) 169 mg/dL (70-99) H 125 mg/dL (70-99) H 139 mg/dL (70-99) H White Blood Count 5.3 x10^3/uL (4.0-11.0) Red Blood Count 3.71 x10^6/uL (3.50-5.40) Hemoglobin 11.5 g/dL (12.0-15.5) L Hematocrit 34.5 % (36.0-47.0) L Mean Corpuscular Volume 93 fL (79-100) Mean Corpuscular Hemoglobin 31 pg (25-35) Mean Corpuscular Hemoglobin Concent 33 g/dL (31-37) Red Cell Distribution Width 15.2 % (11.5-14.5) H Platelet Count 214 x10^3/uL (140-400) Neutrophils (%) (Auto) 54 % (31-73) Lymphocytes (%) (Auto) 37 % (24-48) Monocytes (%) (Auto) 4 % (0-9) Eosinophils (%) (Auto) 4 % (0-3) H Basophils (%) (Auto) 1 % (0-3) Neutrophils # (Auto) 2.9 x10^3uL (1.8-7.7) Lymphocytes # (Auto) 2.0 x10^3/uL (1.0-4.8) Monocytes # (Auto) 0.2 x10^3/uL (0.0-1.1) Eosinophils # (Auto) 0.2 x10^3/uL (0.0-0.7) Basophils # (Auto) 0.1 x10^3/uL (0.0-0.2) Sodium Level 138 mmol/L (136-145) Potassium Level 3.8 mmol/L (3.5-5.1) Chloride Level 100 mmol/L (98-107) Carbon Dioxide Level 30 mmol/L (21-32) Anion Gap 8 (6-14) Blood Urea Nitrogen 15 mg/dL (7-20) Creatinine 0.9 mg/dL (0.6-1.0) Estimated GFR (Cockcroft-Gault) 61.0 BUN/Creatinine Ratio 17 (6-20) Glucose Level 203 mg/dL (70-99) H Calcium Level 9.2 mg/dL (8.5-10.1) Total Bilirubin 0.4 mg/dL (0.2-1.0) Aspartate Amino Transferase (AST) 24 U/L (15-37) Alanine Aminotransferase (ALT) 31 U/L (14-59) Alkaline Phosphatase 84 U/L (46-116) Total Protein 7.5 g/dL (6.4-8.2) Albumin 3.3 g/dL (3.4-5.0) L Albumin/Globulin Ratio 0.8 (1.0-1.7) L Test 08/28/18 19:18 Glucose (Fingerstick) 132 mg/dL (70-99) H Current Medications: Meds: Current Medications Acetaminophen (Tylenol) 650 mg PRN Q6HRS PRN PO PAIN / TEMP Last administered on 08/24/18at 16:50; Start 08/08/18 at 20:00 Multi-Ingredient Ointment (Analgesic [place]) 1 diana PRN QID PRN TP MUSCLE PAIN; Start 08/08/18 at 20:00 Al Hydroxide/Mg Hydroxide (Mylanta Plus Xs) 15 ml PRN AFTMEALHC PRN PO DYSPEPSIA; Start 08/08/18 at 20:00 Magnesium Hydroxide (Milk Of Magnesia) 2,400 mg PRN QHS PRN PO CONSTIPATION Last administered on 08/24/18at 21:05; Start 08/08/18 at 20:00 Memantine (Namenda) 10 mg BID PO Last administered on 08/28/18 20:45; Start 08/08/18 at 22:00 Quetiapine Fumarate (SEROquel) 25 mg DAILY PO Last administered on 08/28/18 08:09; Start 08/09/18 at 09:00 Quetiapine Fumarate (SEROquel) 75 mg HS PO Last administered on 08/28/18 20: 45; Start 08/08/18 at 22:00 Venlafaxine HCl (Effexor) 50 mg TID PO Last administered on 08/10/18 13:40; Start 08/09/18 at 09:00; Stop 08/10/18 at 17:54; Status DC Acetaminophen (Tylenol) 650 mg PRN Q4HRS PRN PO PAIN / TEMP; Start 08/08/18 at 21:30; Status Cancel Levothyroxine Sodium (Synthroid) 100 mcg DAILY06 PO Last administered on 06:17; Start 08/09/18 at 06:00 Amlodipine Besylate (Norvasc) 5 mg DAILY PO Last administered on 08/28/18 08: 08; Start 08/09/18 at 09:00 Aspirin (Children'S Aspirin) 81 mg DAILY PO Last administered on 08/28/18 08: 06; Start 08/09/18 at 09:00 Lisinopril (Prinivil) 20 mg DAILY PO Last administered on 08/28/18 08:08; Start 08/09/18 at 09:00 Vitamin D (Vitamin D3) 50,000 unit WEEKLY PO Last administered on 08/22/18at 07 :44; Start 08/15/18 at 09:00 Heparin Sodium (Porcine) (Heparin Sq) 5,000 unit Q8HRS SQ Last administered on 08/27/18at 22:37; Start 08/08/18 at 22:00; Stop 08/27/18 at 23:00; Status DC Levetiracetam (Keppra) 500 mg BID PO Last administered on 08/28/18 20:45; Start 08/08/18 at 22:00 Atorvastatin Calcium (Lipitor) 20 mg QHS PO Last administered on 08/28/18 20: 48; Start 08/09/18 at 21:00 Insulin Human Lispro (HumaLOG) 0-5 UNITS TIDWMEALS SQ Last administered on at 17:10; Start 08/09/18 at 08:00 Dextrose 12.5 gm PRN Q15MIN PRN IV SEE COMMENTS; Start 08/09/18 at 05:45 Duloxetine HCl (Cymbalta) 30 mg DAILY PO Last administered on 08/12/18at 08:06 ; Start 08/11/18 at 09:00; Stop 08/12/18 at 09:02; Status DC Duloxetine HCl (Cymbalta) 60 mg DAILY PO Last administered on 08/28/18at 08:07 ; Start 08/13/18 at 09:00 Cephalexin HCl (Keflex) 500 mg TID PO Last administered on 08/20/18at 19:28; Start 08/11/18 at 09:00; Stop 08/21/18 at 08:59; Status DC Lactobacillus Rhamnosus (Culturelle) 1 cap BID PO Last administered on at 20:45; Start 08/11/18 at 09:00 Levothyroxine Sodium (Synthroid) 100 mcg 1X ONCE PO Last administered on 08/15at 06:23; Start 08/15/18 at 06:30; Stop 08/15/18 at 06:31; Status DC Olanzapine (ZyPREXA ZYDIS) 10 mg PRN BID PRN PO AGITATION; Start 08/24/18 at 17:45 Olanzapine (ZyPREXA IM) 5 mg PRN BID PRN IM AGITATION Last administered on at 17:53; Start 08/24/18 at 17:45 Cefpodoxime Proxetil (Vantin) 200 mg BID PO Last administered on 08/27/18at 08: 28; Start 08/25/18 at 17:30; Stop 08/27/18 at 17:27; Status DC Gabapentin (Neurontin) 100 mg BID PO Last administered on 08/28/18at 20:44; Start 08/25/18 at 21:00 Quetiapine Fumarate (SEROquel) 12.5 mg DAILY16 PO Last administered on at 14:47; Start 08/27/18 at 16:00 Heparin Sodium (Porcine) (Heparin Sodium) 5,000 unit Q8HRS SQ Last administered on 08/28/18at 20:42; Start 08/28/18 at 06:00 Ciprofloxacin (Cipro) 500 mg BID PO Last administered on 08/28/18at 20:44; Start 08/27/18 at 21:00; Stop 09/06/18 at 20:59 Active Scripts Active Reported Venlafaxine Hcl Er (Venlafaxine Hcl) 150 Mg Tab.er.24 150 Mg PO DAILYWBKFT Quetiapine Fumarate 25 Mg Tablet 25 Mg PO DAILY Seroquel (Quetiapine Fumarate) 25 Mg Tablet 75 Mg PO QHS Namenda (Memantine Hcl) 10 Mg Tablet 10 Mg PO BID Lovastatin 40 Mg Tablet 80 Mg PO QHS Levothyroxine Sodium 100 Mcg Tablet 100 Mcg PO DAILYAC Keppra (Levetiracetam) 500 Mg Tablet 500 Mg PO BID Heparin 5,000 Unit/5 ml-Ns (Heparin Sod,Porcine/0.9 % NaCl) 5,000 Unit/5 Ml Syringe 5,000 Unit IM Q8HRS Vitamin D2 (Ergocalciferol (Vitamin D2)) 50,000 Unit Capsule 50,000 Unit PO WEEKLY Benazepril Hcl 20 Mg Tablet 20 Mg PO DAILY Aspirin 81 Mg Tab.chew 81 Mg PO DAILY Amlodipine Besylate 5 Mg Tablet 5 Mg PO DAILY Tylenol (Acetaminophen) 325 Mg Tablet 650 Mg PO PRN Q4HRS PRN I have reviewed the current psychotropics carefully including drug interactions. Risk benefit ratio favors no change other than as noted in my dictated progress note. Diagnosis: Problems: (1) Anxiety disorder (2) Mild cognitive disorder (3) Major depressive disorder, recurrent episode (4) Impulse control disorder ANTONIA BAILEY MD Aug 28, 2018 22:57
[2018-08-29 05:37] VITALS: BP 148/70
[2018-08-29] MEDS: LEVOTHYROXINE 100 MCG TABLET PO SCH (06:01)
[2018-08-29] MEDS: HEPARIN for SUB-Q USE 5,000 UNIT/ML VIAL. SQ SCH ×3 (06:02→19:34)
[2018-08-29] MEDS: LISINOPRIL 20 MG TABLET PO SCH (08:11)
[2018-08-29] MEDS: ASPIRIN 81 MG TAB.CHEW PO SCH (08:11)
[2018-08-29] MEDS: MEMANTINE 10 MG TABLET. PO SCH ×2 (08:11→19:27)
[2018-08-29] MEDS: levETIRAcetam 500 MG TABLET PO SCH ×2 (08:11→19:28)
[2018-08-29] MEDS: amLODIPine BESYLATE 5 MG TABLET PO SCH (08:11)
[2018-08-29] MEDS: CHOLECALCIFEROL (VITAMIN D3) 50,000 UNIT CAPSULE PO SCH (08:11)
[2018-08-29] MEDS: CIPROFLOXACIN HCL 500 MG TABLET PO SCH ×2 (08:11→19:27)
[2018-08-29] MEDS: GABAPENTIN 100 MG CAPSULE. PO SCH ×2 (08:12→19:27)
[2018-08-29] MEDS: QUEtiapine 25 MG TABLET. PO SCH ×3 (08:12→19:29)
[2018-08-29] MEDS: DULoxetine HCL 60 MG CAPSULE.DR PO SCH (08:12)
[2018-08-29] MEDS: LACTOBACILLUS RHAMNOSUS GG 1 CAPSULE. PO SCH ×2 (08:13→19:27)
[2018-08-29] MEDS: INSULIN LISPRO 300 UNITS/3 ML INSULN.PEN. SQ SCH ×3 (08:17→17:40)
[2018-08-29 15:52] VITALS: BP 104/65
[2018-08-29] MEDS: ATORVASTATIN CALCIUM 20 MG TABLET PO SCH (19:32)
--- NOTE | 2018-08-29 22:47 | PDOC ---
Exam Note: José Miguel Note: Please also refer to the separate dictated note~for this date of service dictated separately.~Patient seen individually. Discussed the patient with Nursing staff reviewed the chart.~Reviewed interim history and current functioning. Reviewed vital signs,~Labs/ Radiology~and current medications noted below. Continue current treatment with the changes noted in the dictated addendum note Assessment: Vital Signs: Vital Signs Date Time Temp Pulse Resp B/P (MAP) Pulse Ox O2 Delivery O2 Flow Rate FiO2 08/29/18 15:52 98.3 83 16 104/65 (78) 99 Room Air I&O Intake and Output 08/29/18 07:00 Intake Total 340 ml Balance 340 ml Intake Oral 340 ml Labs: Laboratory Tests Test 08/29/18 06:54 08/29/18 11:56 08/29/18 16:45 Glucose (Fingerstick) 223 mg/dL (70-99) H 237 mg/dL (70-99) H 210 mg/dL (70-99) H Current Medications: Meds: Current Medications Acetaminophen (Tylenol) 650 mg PRN Q6HRS PRN PO PAIN / TEMP Last administered on 08/24/18at 16:50; Start 08/08/18 at 20:00 Multi-Ingredient Ointment (Analgesic [place]) 1 diana PRN QID PRN TP MUSCLE PAIN; Start 08/08/18 at 20:00 Al Hydroxide/Mg Hydroxide (Mylanta Plus Xs) 15 ml PRN AFTMEALHC PRN PO DYSPEPSIA; Start 08/08/18 at 20:00 Magnesium Hydroxide (Milk Of Magnesia) 2,400 mg PRN QHS PRN PO CONSTIPATION Last administered on 08/24/18at 21:05; Start 08/08/18 at 20:00 Memantine (Namenda) 10 mg BID PO Last administered on 08/29/18at 19:27; Start 08/08/18 at 22:00 Quetiapine Fumarate (SEROquel) 25 mg DAILY PO Last administered on 08/29/18at 08:12; Start 08/09/18 at 09:00 Quetiapine Fumarate (SEROquel) 75 mg HS PO Last administered on 08/29/18at 19: 29; Start 08/08/18 at 22:00 Venlafaxine HCl (Effexor) 50 mg TID PO Last administered on 08/10/18at 13:40; Start 08/09/18 at 09:00; Stop 08/10/18 at 17:54; Status DC Acetaminophen (Tylenol) 650 mg PRN Q4HRS PRN PO PAIN / TEMP; Start 08/08/18 at 21:30; Status Cancel Levothyroxine Sodium (Synthroid) 100 mcg DAILY06 PO Last administered on 06:01; Start 08/09/18 at 06:00 Amlodipine Besylate (Norvasc) 5 mg DAILY PO Last administered on 08/29/18 08: 11; Start 08/09/18 at 09:00 Aspirin (Children'S Aspirin) 81 mg DAILY PO Last administered on 08/29/18 08: 11; Start 08/09/18 at 09:00 Lisinopril (Prinivil) 20 mg DAILY PO Last administered on 08/29/18 08:11; Start 08/09/18 at 09:00 Vitamin D (Vitamin D3) 50,000 unit WEEKLY PO Last administered on 08/29/18at 08 :11; Start 08/15/18 at 09:00 Heparin Sodium (Porcine) (Heparin Sq) 5,000 unit Q8HRS SQ Last administered on 08/27/18at 22:37; Start 08/08/18 at 22:00; Stop 08/27/18 at 23:00; Status DC Levetiracetam (Keppra) 500 mg BID PO Last administered on 08/29/18 19:28; Start 08/08/18 at 22:00 Atorvastatin Calcium (Lipitor) 20 mg QHS PO Last administered on 08/29/18at 19: 32; Start 08/09/18 at 21:00 Insulin Human Lispro (HumaLOG) 0-5 UNITS TIDWMEALS SQ Last administered on at 17:40; Start 08/09/18 at 08:00 Dextrose 12.5 gm PRN Q15MIN PRN IV SEE COMMENTS; Start 08/09/18 at 05:45 Duloxetine HCl (Cymbalta) 30 mg DAILY PO Last administered on 08/12/18at 08:06 ; Start 08/11/18 at 09:00; Stop 08/12/18 at 09:02; Status DC Duloxetine HCl (Cymbalta) 60 mg DAILY PO Last administered on 08/29/18 08:12 ; Start 08/13/18 at 09:00 Cephalexin HCl (Keflex) 500 mg TID PO Last administered on 08/20/18at 19:28; Start 08/11/18 at 09:00; Stop 08/21/18 at 08:59; Status DC Lactobacillus Rhamnosus (Culturelle) 1 cap BID PO Last administered on 19:27; Start 08/11/18 at 09:00 Levothyroxine Sodium (Synthroid) 100 mcg 1X ONCE PO Last administered on 08/15at 06:23; Start 08/15/18 at 06:30; Stop 08/15/18 at 06:31; Status DC Olanzapine (ZyPREXA ZYDIS) 10 mg PRN BID PRN PO AGITATION; Start 08/24/18 at 17:45 Olanzapine (ZyPREXA IM) 5 mg PRN BID PRN IM AGITATION Last administered on at 17:53; Start 08/24/18 at 17:45 Cefpodoxime Proxetil (Vantin) 200 mg BID PO Last administered on 08/27/18at 08: 28; Start 08/25/18 at 17:30; Stop 08/27/18 at 17:27; Status DC Gabapentin (Neurontin) 100 mg BID PO Last administered on 08/29/18at 19:27; Start 08/25/18 at 21:00 Quetiapine Fumarate (SEROquel) 12.5 mg DAILY16 PO Last administered on at 17:38; Start 08/27/18 at 16:00 Heparin Sodium (Porcine) (Heparin Sodium) 5,000 unit Q8HRS SQ Last administered on 08/29/18 19:34; Start 08/28/18 at 06:00 Ciprofloxacin (Cipro) 500 mg BID PO Last administered on 08/29/18 19:27; Start 08/27/18 at 21:00; Stop 09/06/18 at 20:59 Active Scripts Active Reported Venlafaxine Hcl Er (Venlafaxine Hcl) 150 Mg Tab.er.24 150 Mg PO DAILYWBKFT Quetiapine Fumarate 25 Mg Tablet 25 Mg PO DAILY Seroquel (Quetiapine Fumarate) 25 Mg Tablet 75 Mg PO QHS Namenda (Memantine Hcl) 10 Mg Tablet 10 Mg PO BID Lovastatin 40 Mg Tablet 80 Mg PO QHS Levothyroxine Sodium 100 Mcg Tablet 100 Mcg PO DAILYAC Keppra (Levetiracetam) 500 Mg Tablet 500 Mg PO BID Heparin 5,000 Unit/5 ml-Ns (Heparin Sod,Porcine/0.9 % NaCl) 5,000 Unit/5 Ml Syringe 5,000 Unit IM Q8HRS Vitamin D2 (Ergocalciferol (Vitamin D2)) 50,000 Unit Capsule 50,000 Unit PO WEEKLY Benazepril Hcl 20 Mg Tablet 20 Mg PO DAILY Aspirin 81 Mg Tab.chew 81 Mg PO DAILY Amlodipine Besylate 5 Mg Tablet 5 Mg PO DAILY Tylenol (Acetaminophen) 325 Mg Tablet 650 Mg PO PRN Q4HRS PRN I have reviewed the current psychotropics carefully including drug interactions. Risk benefit ratio favors no change other than as noted in my dictated progress note. Diagnosis: Problems: (1) Anxiety disorder (2) Mild cognitive disorder (3) Major depressive disorder, recurrent episode (4) Impulse control disorder ANTONIA BAILEY MD Aug 29, 2018 22:47
--- NOTE | 2018-08-30 03:44 | PN ---
DATE: 08/28/2018 PSYCHIATRIC PROGRESS NOTE This late entry 08/28/2018 covers elements not covered in my initial note. SUBJECTIVE: I met with the patient in the evening, staffed at treatment team meeting with the entire team earlier in the day. The patient slept 8 hours previous night. She has been a little more compliant with taking her medications. REVIEW OF SYSTEMS: Ambulation impaired, in wheelchair. No CV, , pulmonary, eye system symptoms on review. MENTAL STATUS EXAM: Reasonably oriented. Speech is coherent, has some latency, abstraction fair, computation impaired, language function intact, attention span short. Mood and affect still depressed, but improved. No suicidal ideation. LABORATORY DATA: Reviewed. IMPRESSION: Major depressive disorder, recurrent, in partial remission. Rest unchanged. PLAN: No change from initial note. MAN Han BAILEY MD DR: RAYMON/christen JOB#: [id number] / [id number]
[2018-08-30 06:24] VITALS: BP 102/63
[2018-08-30] MEDS: LEVOTHYROXINE 100 MCG TABLET PO SCH (06:41)
[2018-08-30] MEDS: HEPARIN for SUB-Q USE 5,000 UNIT/ML VIAL. SQ SCH ×3 (06:41→18:19)
[2018-08-30] MEDS: INSULIN LISPRO 300 UNITS/3 ML INSULN.PEN. SQ SCH ×3 (08:00→17:10)
[2018-08-30] MEDS: QUEtiapine 25 MG TABLET. PO SCH ×3 (08:20→18:16)
[2018-08-30] MEDS: LISINOPRIL 20 MG TABLET PO SCH (08:20)
[2018-08-30] MEDS: CIPROFLOXACIN HCL 500 MG TABLET PO SCH ×2 (08:21→18:12)
[2018-08-30] MEDS: GABAPENTIN 100 MG CAPSULE. PO SCH ×2 (08:21→18:12)
[2018-08-30] MEDS: levETIRAcetam 500 MG TABLET PO SCH ×2 (08:21→18:12)
[2018-08-30] MEDS: DULoxetine HCL 60 MG CAPSULE.DR PO SCH (08:21)
[2018-08-30] MEDS: LACTOBACILLUS RHAMNOSUS GG 1 CAPSULE. PO SCH ×2 (08:21→18:12)
[2018-08-30] MEDS: MEMANTINE 10 MG TABLET. PO SCH ×2 (08:21→18:16)
[2018-08-30] MEDS: amLODIPine BESYLATE 5 MG TABLET PO SCH (08:21)
[2018-08-30] MEDS: ASPIRIN 81 MG TAB.CHEW PO SCH (08:21)
[2018-08-30] MEDS: ACETAMINOPHEN 325 MG TABLET PO PRN (08:30)
[2018-08-30 16:01] VITALS: BP 138/79
--- NOTE | 2018-08-30 17:07 | PN ---
DATE: 08/29/2018 PSYCHIATRIC PROGRESS NOTE This is a late entry 08/29/2018, covers elements not covered in my initial note. SUBJECTIVE: I met with the patient in the evening. The patient has been cooperative, slept 6 hours previous evening. REVIEW OF SYSTEMS: Ambulation impaired, in wheelchair, complains of discomfort in her back due to abscess and I will defer to Dr. Anguiano. No CV, , pulmonary, eye system symptoms on review. MENTAL STATUS EXAM: Oriented reasonably. Speech has some latency, coherent. Abstraction fair, computation impaired, language function intact. Mood and affect improved. She still has poor eye contact. Reduced psychomotor activity, but improving. LABORATORY DATA: Reviewed. IMPRESSION: Major depressive disorder with psychotic features, in partial remission. Rest unchanged. PLAN: No change from initial note. MAN Han BAILEY MD DR: RAYMON/christen JOB#: [id number] / [id number]
[2018-08-30] MEDS: ATORVASTATIN CALCIUM 20 MG TABLET PO SCH (18:16)
--- NOTE | 2018-08-30 22:39 | PDOC ---
Exam Note: José Miguel Note: Please also refer to the separate dictated note~for this date of service dictated separately.~Patient seen individually. Discussed the patient with Nursing staff reviewed the chart.~Reviewed interim history and current functioning. Reviewed vital signs,~Labs/ Radiology~and current medications noted below. Continue current treatment with the changes noted in the dictated addendum note Assessment: Vital Signs: Vital Signs Date Time Temp Pulse Resp B/P (MAP) Pulse Ox O2 Delivery O2 Flow Rate FiO2 08/30/18 16:01 97.2 69 16 138/79 (98) 99 Room Air I&O Intake and Output 08/30/18 07:00 Intake Total 1200 ml Balance 1200 ml Intake Oral 1200 ml # Voids 1 Labs: Laboratory Tests Test 08/30/18 07:03 08/30/18 11:40 08/30/18 13:02 08/30/18 16:38 Glucose (Fingerstick) 178 mg/dL (70-99) H 228 mg/dL (70-99) H 227 mg/dL (70-99) H Prothrombin Time 9.6 SEC (9.4-11.4) Prothrombin Time INR 1.0 (0.9-1.1) PTT < 21 SEC (23-33) L Test 08/30/18 19:09 Glucose (Fingerstick) 214 mg/dL (70-99) H Current Medications: Meds: Current Medications Acetaminophen (Tylenol) 650 mg PRN Q6HRS PRN PO PAIN / TEMP Last administered on 08/30/18at 08:30; Start 08/08/18 at 20:00 Multi-Ingredient Ointment (Analgesic [place]) 1 diana PRN QID PRN TP MUSCLE PAIN; Start 08/08/18 at 20:00 Al Hydroxide/Mg Hydroxide (Mylanta Plus Xs) 15 ml PRN AFTMEALHC PRN PO DYSPEPSIA; Start 08/08/18 at 20:00 Magnesium Hydroxide (Milk Of Magnesia) 2,400 mg PRN QHS PRN PO CONSTIPATION Last administered on 08/24/18at 21:05; Start 08/08/18 at 20:00 Memantine (Namenda) 10 mg BID PO Last administered on 08/30/18at 18:16; Start 08/08/18 at 22:00 Quetiapine Fumarate (SEROquel) 25 mg DAILY PO Last administered on 08/30/18 08:20; Start 08/09/18 at 09:00 Quetiapine Fumarate (SEROquel) 75 mg HS PO Last administered on 08/30/18 18: 16; Start 08/08/18 at 22:00 Venlafaxine HCl (Effexor) 50 mg TID PO Last administered on 08/10/18 13:40; Start 08/09/18 at 09:00; Stop 08/10/18 at 17:54; Status DC Acetaminophen (Tylenol) 650 mg PRN Q4HRS PRN PO PAIN / TEMP; Start 08/08/18 at 21:30; Status Cancel Levothyroxine Sodium (Synthroid) 100 mcg DAILY06 PO Last administered on 06:41; Start 08/09/18 at 06:00 Amlodipine Besylate (Norvasc) 5 mg DAILY PO Last administered on 08/30/18 08: 21; Start 08/09/18 at 09:00 Aspirin (Children'S Aspirin) 81 mg DAILY PO Last administered on 08/30/18 08: 21; Start 08/09/18 at 09:00 Lisinopril (Prinivil) 20 mg DAILY PO Last administered on 08/30/18 08:20; Start 08/09/18 at 09:00 Vitamin D (Vitamin D3) 50,000 unit WEEKLY PO Last administered on 08/29/18at 08 :11; Start 08/15/18 at 09:00 Heparin Sodium (Porcine) (Heparin Sq) 5,000 unit Q8HRS SQ Last administered on 08/27/18at 22:37; Start 08/08/18 at 22:00; Stop 08/27/18 at 23:00; Status DC Levetiracetam (Keppra) 500 mg BID PO Last administered on 08/30/18 18:12; Start 08/08/18 at 22:00 Atorvastatin Calcium (Lipitor) 20 mg QHS PO Last administered on 08/30/18 18: 16; Start 08/09/18 at 21:00 Insulin Human Lispro (HumaLOG) 0-5 UNITS TIDWMEALS SQ Last administered on 17:10; Start 08/09/18 at 08:00 Dextrose 12.5 gm PRN Q15MIN PRN IV SEE COMMENTS; Start 08/09/18 at 05:45 Duloxetine HCl (Cymbalta) 30 mg DAILY PO Last administered on 08/12/18at 08:06 ; Start 08/11/18 at 09:00; Stop 08/12/18 at 09:02; Status DC Duloxetine HCl (Cymbalta) 60 mg DAILY PO Last administered on 08/30/18 08:21 ; Start 08/13/18 at 09:00 Cephalexin HCl (Keflex) 500 mg TID PO Last administered on 08/20/18at 19:28; Start 08/11/18 at 09:00; Stop 08/21/18 at 08:59; Status DC Lactobacillus Rhamnosus (Culturelle) 1 cap BID PO Last administered on 18:12; Start 08/11/18 at 09:00 Levothyroxine Sodium (Synthroid) 100 mcg 1X ONCE PO Last administered on 08/15at 06:23; Start 08/15/18 at 06:30; Stop 08/15/18 at 06:31; Status DC Olanzapine (ZyPREXA ZYDIS) 10 mg PRN BID PRN PO AGITATION; Start 08/24/18 at 17:45 Olanzapine (ZyPREXA IM) 5 mg PRN BID PRN IM AGITATION Last administered on at 17:53; Start 08/24/18 at 17:45 Cefpodoxime Proxetil (Vantin) 200 mg BID PO Last administered on 08/27/18at 08: 28; Start 08/25/18 at 17:30; Stop 08/27/18 at 17:27; Status DC Gabapentin (Neurontin) 100 mg BID PO Last administered on 08/30/18 18:12; Start 08/25/18 at 21:00 Quetiapine Fumarate (SEROquel) 12.5 mg DAILY16 PO Last administered on 15:12; Start 08/27/18 at 16:00 Heparin Sodium (Porcine) (Heparin Sodium) 5,000 unit Q8HRS SQ Last administered on 08/30/18 18:19; Start 08/28/18 at 06:00 Ciprofloxacin (Cipro) 500 mg BID PO Last administered on 08/30/18at 18:12; Start 08/27/18 at 21:00; Stop 09/06/18 at 20:59 Active Scripts Active Reported Venlafaxine Hcl Er (Venlafaxine Hcl) 150 Mg Tab.er.24 150 Mg PO DAILYWBKFT Quetiapine Fumarate 25 Mg Tablet 25 Mg PO DAILY Seroquel (Quetiapine Fumarate) 25 Mg Tablet 75 Mg PO QHS Namenda (Memantine Hcl) 10 Mg Tablet 10 Mg PO BID Lovastatin 40 Mg Tablet 80 Mg PO QHS Levothyroxine Sodium 100 Mcg Tablet 100 Mcg PO DAILYAC Keppra (Levetiracetam) 500 Mg Tablet 500 Mg PO BID Heparin 5,000 Unit/5 ml-Ns (Heparin Sod,Porcine/0.9 % NaCl) 5,000 Unit/5 Ml Syringe 5,000 Unit IM Q8HRS Vitamin D2 (Ergocalciferol (Vitamin D2)) 50,000 Unit Capsule 50,000 Unit PO WEEKLY Benazepril Hcl 20 Mg Tablet 20 Mg PO DAILY Aspirin 81 Mg Tab.chew 81 Mg PO DAILY Amlodipine Besylate 5 Mg Tablet 5 Mg PO DAILY Tylenol (Acetaminophen) 325 Mg Tablet 650 Mg PO PRN Q4HRS PRN I have reviewed the current psychotropics carefully including drug interactions. Risk benefit ratio favors no change other than as noted in my dictated progress note. Diagnosis: Problems: (1) Anxiety disorder (2) Mild cognitive disorder (3) Major depressive disorder, recurrent episode (4) Impulse control disorder ANTONIA BAILEY MD Aug 30, 2018 22:39
[2018-08-31 06:02] VITALS: BP 116/76
[2018-08-31] MEDS: LEVOTHYROXINE 100 MCG TABLET PO SCH (06:04)
[2018-08-31] MEDS: HEPARIN for SUB-Q USE 5,000 UNIT/ML VIAL. SQ SCH ×3 (06:05→20:06)
[2018-08-31] MEDS: INSULIN LISPRO 300 UNITS/3 ML INSULN.PEN. SQ SCH ×3 (07:55→17:27)
[2018-08-31] MEDS: CIPROFLOXACIN HCL 500 MG TABLET PO SCH ×2 (07:56→20:02)
[2018-08-31] MEDS: LACTOBACILLUS RHAMNOSUS GG 1 CAPSULE. PO SCH ×2 (07:56→20:02)
[2018-08-31] MEDS: MEMANTINE 10 MG TABLET. PO SCH ×2 (07:56→20:03)
[2018-08-31] MEDS: DULoxetine HCL 60 MG CAPSULE.DR PO SCH (07:56)
[2018-08-31] MEDS: levETIRAcetam 500 MG TABLET PO SCH ×2 (07:56→20:02)
[2018-08-31] MEDS: GABAPENTIN 100 MG CAPSULE. PO SCH ×2 (07:56→20:02)
[2018-08-31] MEDS: QUEtiapine 25 MG TABLET. PO SCH ×3 (07:56→20:03)
[2018-08-31] MEDS: ASPIRIN 81 MG TAB.CHEW PO SCH (07:57)
[2018-08-31] MEDS: LISINOPRIL 20 MG TABLET PO SCH (07:57)
[2018-08-31] MEDS: amLODIPine BESYLATE 5 MG TABLET PO SCH (07:57)
[2018-08-31 15:57] VITALS: BP 125/81
[2018-08-31] MEDS: ATORVASTATIN CALCIUM 20 MG TABLET PO SCH (20:03)
--- NOTE | 2018-08-31 21:47 | PDOC ---
Exam Note: José Miguel Note: Please also refer to the separate dictated note~for this date of service dictated separately.~Patient seen individually. Discussed the patient with Nursing staff reviewed the chart.~Reviewed interim history and current functioning. Reviewed vital signs,~Labs/ Radiology~and current medications noted below. Continue current treatment with the changes noted in the dictated addendum note Assessment: Vital Signs: Vital Signs Date Time Temp Pulse Resp B/P (MAP) Pulse Ox O2 Delivery O2 Flow Rate FiO2 08/31/18 15:57 97.6 75 16 125/81 (96) 98 Room Air I&O Intake and Output 08/31/18 07:00 Intake Total 1080 ml Balance 1080 ml Intake Oral 1080 ml # Voids 1 Labs: Laboratory Tests Test 08/31/18 07:02 08/31/18 12:04 08/31/18 17:06 08/31/18 19:07 Glucose (Fingerstick) 200 mg/dL (70-99) H 188 mg/dL (70-99) H 219 mg/dL (70-99) H 267 mg/dL (70-99) H Current Medications: Meds: Current Medications Acetaminophen (Tylenol) 650 mg PRN Q6HRS PRN PO PAIN / TEMP Last administered on 08/30/18at 08:30; Start 08/08/18 at 20:00 Multi-Ingredient Ointment (Analgesic [place]) 1 diana PRN QID PRN TP MUSCLE PAIN; Start 08/08/18 at 20:00 Al Hydroxide/Mg Hydroxide (Mylanta Plus Xs) 15 ml PRN AFTMEALHC PRN PO DYSPEPSIA; Start 08/08/18 at 20:00 Magnesium Hydroxide (Milk Of Magnesia) 2,400 mg PRN QHS PRN PO CONSTIPATION Last administered on 08/24/18at 21:05; Start 08/08/18 at 20:00 Memantine (Namenda) 10 mg BID PO Last administered on 08/31/18at 20:03; Start 08/08/18 at 22:00 Quetiapine Fumarate (SEROquel) 25 mg DAILY PO Last administered on 08/31/18at 07 :56; Start 08/09/18 at 09:00 Quetiapine Fumarate (SEROquel) 75 mg HS PO Last administered on 08/31/18at 20:03 ; Start 08/08/18 at 22:00 Venlafaxine HCl (Effexor) 50 mg TID PO Last administered on 08/10/18at 13:40; Start 08/09/18 at 09:00; Stop 08/10/18 at 17:54; Status DC Acetaminophen (Tylenol) 650 mg PRN Q4HRS PRN PO PAIN / TEMP; Start 08/08/18 at 21:30; Status Cancel Levothyroxine Sodium (Synthroid) 100 mcg DAILY06 PO Last administered on at 06:04; Start 08/09/18 at 06:00 Amlodipine Besylate (Norvasc) 5 mg DAILY PO Last administered on 08/31/18at 07: 57; Start 08/09/18 at 09:00 Aspirin (Children'S Aspirin) 81 mg DAILY PO Last administered on 08/31/18 07: 57; Start 08/09/18 at 09:00 Lisinopril (Prinivil) 20 mg DAILY PO Last administered on 08/31/18at 07:57; Start 08/09/18 at 09:00 Vitamin D (Vitamin D3) 50,000 unit WEEKLY PO Last administered on 08/29/18at 08 :11; Start 08/15/18 at 09:00 Heparin Sodium (Porcine) (Heparin Sq) 5,000 unit Q8HRS SQ Last administered on 08/27/18at 22:37; Start 08/08/18 at 22:00; Stop 08/27/18 at 23:00; Status DC Levetiracetam (Keppra) 500 mg BID PO Last administered on 08/31/18at 20:02; Start 08/08/18 at 22:00 Atorvastatin Calcium (Lipitor) 20 mg QHS PO Last administered on 08/31/18at 20: 03; Start 08/09/18 at 21:00 Insulin Human Lispro (HumaLOG) 0-5 UNITS TIDWMEALS SQ Last administered on 08/31 17:27; Start 08/09/18 at 08:00 Dextrose 12.5 gm PRN Q15MIN PRN IV SEE COMMENTS; Start 08/09/18 at 05:45 Duloxetine HCl (Cymbalta) 30 mg DAILY PO Last administered on 08/12/18at 08:06 ; Start 08/11/18 at 09:00; Stop 08/12/18 at 09:02; Status DC Duloxetine HCl (Cymbalta) 60 mg DAILY PO Last administered on 08/31/18at 07:56; Start 08/13/18 at 09:00 Cephalexin HCl (Keflex) 500 mg TID PO Last administered on 08/20/18at 19:28; Start 08/11/18 at 09:00; Stop 08/21/18 at 08:59; Status DC Lactobacillus Rhamnosus (Culturelle) 1 cap BID PO Last administered on at 20:02; Start 08/11/18 at 09:00 Levothyroxine Sodium (Synthroid) 100 mcg 1X ONCE PO Last administered on 08/15at 06:23; Start 08/15/18 at 06:30; Stop 08/15/18 at 06:31; Status DC Olanzapine (ZyPREXA ZYDIS) 10 mg PRN BID PRN PO AGITATION; Start 08/24/18 at 17:45 Olanzapine (ZyPREXA IM) 5 mg PRN BID PRN IM AGITATION Last administered on at 17:53; Start 08/24/18 at 17:45 Cefpodoxime Proxetil (Vantin) 200 mg BID PO Last administered on 08/27/18at 08: 28; Start 08/25/18 at 17:30; Stop 08/27/18 at 17:27; Status DC Gabapentin (Neurontin) 100 mg BID PO Last administered on 08/31/18at 20:02; Start 08/25/18 at 21:00 Quetiapine Fumarate (SEROquel) 12.5 mg DAILY16 PO Last administered on at 17:01; Start 08/27/18 at 16:00 Heparin Sodium (Porcine) (Heparin Sodium) 5,000 unit Q8HRS SQ Last administered on 08/31/18at 20:06; Start 08/28/18 at 06:00 Ciprofloxacin (Cipro) 500 mg BID PO Last administered on 08/31/18at 20:02; Start 08/27/18 at 21:00; Stop 09/06/18 at 20:59 Active Scripts Active Reported Venlafaxine Hcl Er (Venlafaxine Hcl) 150 Mg Tab.er.24 150 Mg PO DAILYWBKFT Quetiapine Fumarate 25 Mg Tablet 25 Mg PO DAILY Seroquel (Quetiapine Fumarate) 25 Mg Tablet 75 Mg PO QHS Namenda (Memantine Hcl) 10 Mg Tablet 10 Mg PO BID Lovastatin 40 Mg Tablet 80 Mg PO QHS Levothyroxine Sodium 100 Mcg Tablet 100 Mcg PO DAILYAC Keppra (Levetiracetam) 500 Mg Tablet 500 Mg PO BID Heparin 5,000 Unit/5 ml-Ns (Heparin Sod,Porcine/0.9 % NaCl) 5,000 Unit/5 Ml Syringe 5,000 Unit IM Q8HRS Vitamin D2 (Ergocalciferol (Vitamin D2)) 50,000 Unit Capsule 50,000 Unit PO WEEKLY Benazepril Hcl 20 Mg Tablet 20 Mg PO DAILY Aspirin 81 Mg Tab.chew 81 Mg PO DAILY Amlodipine Besylate 5 Mg Tablet 5 Mg PO DAILY Tylenol (Acetaminophen) 325 Mg Tablet 650 Mg PO PRN Q4HRS PRN I have reviewed the current psychotropics carefully including drug interactions. Risk benefit ratio favors no change other than as noted in my dictated progress note. Diagnosis: Problems: (1) Anxiety disorder (2) Mild cognitive disorder (3) Major depressive disorder, recurrent episode (4) Impulse control disorder ANTONIA ABILEY MD Aug 31, 2018 21:47
[2018-09-01] MEDS: LEVOTHYROXINE 100 MCG TABLET PO SCH (05:49)
[2018-09-01] MEDS: HEPARIN for SUB-Q USE 5,000 UNIT/ML VIAL. SQ SCH ×3 (05:53→20:38)
[2018-09-01 05:54] VITALS: BP 145/78
[2018-09-01] MEDS: INSULIN LISPRO 300 UNITS/3 ML INSULN.PEN. SQ SCH ×3 (07:50→17:13)
[2018-09-01] MEDS: ASPIRIN 81 MG TAB.CHEW PO SCH (07:50)
[2018-09-01] MEDS: DULoxetine HCL 60 MG CAPSULE.DR PO SCH (07:51)
[2018-09-01] MEDS: CIPROFLOXACIN HCL 500 MG TABLET PO SCH ×2 (07:51→20:37)
[2018-09-01] MEDS: QUEtiapine 25 MG TABLET. PO SCH ×3 (07:51→20:37)
[2018-09-01] MEDS: MEMANTINE 10 MG TABLET. PO SCH ×2 (07:51→20:37)
[2018-09-01] MEDS: amLODIPine BESYLATE 5 MG TABLET PO SCH (07:51)
[2018-09-01] MEDS: LISINOPRIL 20 MG TABLET PO SCH (07:51)
[2018-09-01] MEDS: LACTOBACILLUS RHAMNOSUS GG 1 CAPSULE. PO SCH ×2 (07:52→20:37)
[2018-09-01] MEDS: GABAPENTIN 100 MG CAPSULE. PO SCH ×2 (07:52→20:37)
[2018-09-01] MEDS: levETIRAcetam 500 MG TABLET PO SCH ×2 (07:53→20:37)
[2018-09-01 15:50] VITALS: BP 105/71
[2018-09-01] MEDS: MAGNESIUM HYDROXIDE 2,400 MG/30 ML ORAL.SUSP. PO PRN (18:08)
[2018-09-01] MEDS: ATORVASTATIN CALCIUM 20 MG TABLET PO SCH (20:37)
--- NOTE | 2018-09-01 22:18 | PN ---
DATE: 08/30/2018 This is a late entry for 08/30/2018 covers elements not covered in my initial note. SUBJECTIVE: I met with the patient in the evening. The patient slept 6 hours previous night, somewhat sedated in the morning. Impaired ambulation, in wheelchair. REVIEW OF SYSTEMS: No CV, , pulmonary, eye, ENT system symptoms on review. MENTAL STATUS EXAM: Oriented to herself and situation. Speech has some latency, coherent. Abstraction fair, computation impaired, language function intact, attention span short. Mood and affect less depressed, still somewhat isolated, but improved. LABORATORY DATA: Reviewed. IMPRESSION: Major depressive disorder, partial remission; anxiety disorder, unspecified. Rest unchanged. PLAN: No change from initial note. MAN Han BAILEY MD DR: RAYMON/christen JOB#: [id number] / [id number]
--- NOTE | 2018-09-01 22:48 | PN ---
DATE: 08/31/2018 PSYCHIATRIC PROGRESS NOTE This is a late entry of 08/31/2018, covers elements not covered in my initial note. SUBJECTIVE: I met with the patient in the evening. The patient slept 7-1/2 hours previous night. She has been less tearful, compliant with medications. No family visited on 08/31/2018. REVIEW OF SYSTEMS: Ambulation impaired, in wheelchair. No CV, , pulmonary, eye, ENT system symptoms on review. MENTAL STATUS EXAM: Oriented to herself and situation. Speech is moderate latency, coherent, low in volume. Abstraction fair, computation impaired, language function intact, attention span short. Mood and affect still depressed, but improved. No suicidal ideation. LABORATORY DATA: Reviewed. 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 PLAN: No change from initial note. MAN Han BAILEY MD DR: RAYMON/christen JOB#: [id number] / [id number]
[2018-09-02] MEDS: LEVOTHYROXINE 100 MCG TABLET PO SCH (05:27)
[2018-09-02] MEDS: HEPARIN for SUB-Q USE 5,000 UNIT/ML VIAL. SQ SCH ×3 (05:28→19:43)
[2018-09-02 05:54] VITALS: BP 124/76
[2018-09-02 07:42] LABS: BASO # 0.1 x10^3/uL (0.0-0.2); BASO % 1 % (0-3); EOS # 0.2 x10^3/uL (0.0-0.7); EOS % 4 % (0-3); HEMATOCRIT 34.1 % (36.0-47.0); HEMOGLOBIN 11.6 g/dL (12.0-15.5); LYMPH % 40 % (24-48); MEAN CORPUSCULAR HEMOGLOBIN 31 pg (25-35); MEAN CORPUSCULAR HGB CONC 34 g/dL (31-37); MEAN CORPUSCULAR VOLUME 92 fL (79-100); MONO # 0.3 x10^3/uL (0.0-1.1); MONO % 6 % (0-9); NEUT # 2.4 x10^3uL (1.8-7.7); NEUT % 50 % (31-73); PLATELET COUNT 198 x10^3/uL (140-400); RED BLOOD COUNT 3.71 x10^6/uL (3.50-5.40); RED CELL DISTRIBUTION WIDTH 14.8 % (11.5-14.5); WHITE BLOOD COUNT 4.9 x10^3/uL (4.0-11.0)
[2018-09-02 07:56] LABS: ALBUMIN 3.2 g/dL (3.4-5.0); ALBUMIN/GLOBULIN RATIO 0.8 (1.0-1.7); CALCIUM 9.1 mg/dL (8.5-10.1); CREATININE 0.9 mg/dL (0.6-1.0); TOTAL BILIRUBIN 0.3 mg/dL (0.2-1.0); TOTAL PROTEIN 7.4 g/dL (6.4-8.2)
[2018-09-02] MEDS: LACTOBACILLUS RHAMNOSUS GG 1 CAPSULE. PO SCH ×2 (08:00→19:39)
[2018-09-02] MEDS: GABAPENTIN 100 MG CAPSULE. PO SCH ×2 (08:00→19:39)
[2018-09-02] MEDS: INSULIN LISPRO 300 UNITS/3 ML INSULN.PEN. SQ SCH ×3 (08:00→17:00)
[2018-09-02] MEDS: ASPIRIN 81 MG TAB.CHEW PO SCH (08:01)
[2018-09-02] MEDS: QUEtiapine 25 MG TABLET. PO SCH ×3 (08:01→19:40)
[2018-09-02] MEDS: levETIRAcetam 500 MG TABLET PO SCH ×2 (08:01→19:40)
[2018-09-02] MEDS: LISINOPRIL 20 MG TABLET PO SCH (08:01)
[2018-09-02] MEDS: DULoxetine HCL 60 MG CAPSULE.DR PO SCH (08:01)
[2018-09-02] MEDS: CIPROFLOXACIN HCL 500 MG TABLET PO SCH ×2 (08:01→19:39)
[2018-09-02] MEDS: MEMANTINE 10 MG TABLET. PO SCH ×2 (08:01→19:40)
[2018-09-02] MEDS: amLODIPine BESYLATE 5 MG TABLET PO SCH (08:02)
--- NOTE | 2018-09-02 10:11 | PDOC ---
Exam Note: José Miguel Note: Late entry for DOS 09/01/2018. Please also refer to the separate dictated note~ for this date of service dictated separately.~Patient seen individually. Discussed the patient with Nursing staff reviewed the chart.~Reviewed interim history and current functioning. Reviewed vital signs,~Labs/ Radiology~and current medications noted below. Continue current treatment with the changes noted in the dictated addendum note Assessment: Vital Signs: VS - Last 72 Hours, by Label Date Time Temp Pulse Resp B/P (MAP) Pulse Ox O2 Delivery O2 Flow Rate FiO2 09/02/18 08:02 80 124/76 09/02/18 08:01 80 124/76 09/02/18 05:54 97.8 80 20 124/76 (92) 96 09/01/18 15:50 97.2 86 18 105/71 (82) 98 09/01/18 07:51 92 145/78 09/01/18 07:51 92 145/78 09/01/18 05:54 98.9 92 18 145/78 (100) 96 08/31/18 15:57 97.6 75 16 125/81 (96) 98 Room Air 08/31/18 07:57 88 116/76 08/31/18 07:57 88 116/76 08/31/18 06:02 98.1 88 18 116/76 (89) 97 08/30/18 16:01 97.2 69 16 138/79 (98) 99 Room Air Vital Signs Date Time Temp Pulse Resp B/P (MAP) Pulse Ox O2 Delivery O2 Flow Rate FiO2 09/02/18 08:02 80 124/76 09/02/18 05:54 97.8 20 96 08/31/18 15:57 Room Air I&O Intake and Output 09/02/18 07:00 Intake Total 1200 ml Balance 1200 ml Intake Oral 1200 ml Labs: Laboratory Tests Test 09/01/18 11:38 09/01/18 16:30 09/01/18 19:01 09/02/18 07:20 Glucose (Fingerstick) 209 mg/dL (70-99) H 266 mg/dL (70-99) H 223 mg/dL (70-99) H White Blood Count 4.9 x10^3/uL (4.0-11.0) Red Blood Count 3.71 x10^6/uL (3.50-5.40) Hemoglobin 11.6 g/dL (12.0-15.5) L Hematocrit 34.1 % (36.0-47.0) L Mean Corpuscular Volume 92 fL (79-100) Mean Corpuscular Hemoglobin 31 pg (25-35) Mean Corpuscular Hemoglobin Concent 34 g/dL (31-37) Red Cell Distribution Width 14.8 % (11.5-14.5) H Platelet Count 198 x10^3/uL (140-400) Neutrophils (%) (Auto) 50 % (31-73) Lymphocytes (%) (Auto) 40 % (24-48) Monocytes (%) (Auto) 6 % (0-9) Eosinophils (%) (Auto) 4 % (0-3) H Basophils (%) (Auto) 1 % (0-3) Neutrophils # (Auto) 2.4 x10^3uL (1.8-7.7) Lymphocytes # (Auto) 2.0 x10^3/uL (1.0-4.8) Monocytes # (Auto) 0.3 x10^3/uL (0.0-1.1) Eosinophils # (Auto) 0.2 x10^3/uL (0.0-0.7) Basophils # (Auto) 0.1 x10^3/uL (0.0-0.2) Sodium Level 137 mmol/L (136-145) Potassium Level 4.0 mmol/L (3.5-5.1) Chloride Level 99 mmol/L (98-107) Carbon Dioxide Level 32 mmol/L (21-32) Anion Gap 6 (6-14) Blood Urea Nitrogen 17 mg/dL (7-20) Creatinine 0.9 mg/dL (0.6-1.0) Estimated GFR (Cockcroft-Gault) 61.0 BUN/Creatinine Ratio 19 (6-20) Glucose Level 185 mg/dL (70-99) H Calcium Level 9.1 mg/dL (8.5-10.1) Total Bilirubin 0.3 mg/dL (0.2-1.0) Aspartate Amino Transferase (AST) 19 U/L (15-37) Alanine Aminotransferase (ALT) 27 U/L (14-59) Alkaline Phosphatase 89 U/L (46-116) Total Protein 7.4 g/dL (6.4-8.2) Albumin 3.2 g/dL (3.4-5.0) L Albumin/Globulin Ratio 0.8 (1.0-1.7) L Test 09/02/18 07:32 Glucose (Fingerstick) 179 mg/dL (70-99) H Current Medications: Meds: Current Medications Acetaminophen (Tylenol) 650 mg PRN Q6HRS PRN PO PAIN / TEMP Last administered on 08/30/18at 08:30; Start 08/08/18 at 20:00 Multi-Ingredient Ointment (Analgesic [place]) 1 diana PRN QID PRN TP MUSCLE PAIN; Start 08/08/18 at 20:00 Al Hydroxide/Mg Hydroxide (Mylanta Plus Xs) 15 ml PRN AFTMEALHC PRN PO DYSPEPSIA; Start 08/08/18 at 20:00 Magnesium Hydroxide (Milk Of Magnesia) 2,400 mg PRN QHS PRN PO CONSTIPATION Last administered on 09/01/18at 18:08; Start 08/08/18 at 20:00 Memantine (Namenda) 10 mg BID PO Last administered on 09/02/18at 08:01; Start 08/08/18 at 22:00 Quetiapine Fumarate (SEROquel) 25 mg DAILY PO Last administered on 09/02/18at 08 :01; Start 08/09/18 at 09:00 Quetiapine Fumarate (SEROquel) 75 mg HS PO Last administered on 09/01/18at 20:37 ; Start 08/08/18 at 22:00 Venlafaxine HCl (Effexor) 50 mg TID PO Last administered on 08/10/18at 13:40; Start 08/09/18 at 09:00; Stop 08/10/18 at 17:54; Status DC Acetaminophen (Tylenol) 650 mg PRN Q4HRS PRN PO PAIN / TEMP; Start 08/08/18 at 21:30; Status Cancel Levothyroxine Sodium (Synthroid) 100 mcg DAILY06 PO Last administered on at 05:27; Start 08/09/18 at 06:00 Amlodipine Besylate (Norvasc) 5 mg DAILY PO Last administered on 09/02/18at 08: 02; Start 08/09/18 at 09:00 Aspirin (Children'S Aspirin) 81 mg DAILY PO Last administered on 09/02/18 08: 01; Start 08/09/18 at 09:00 Lisinopril (Prinivil) 20 mg DAILY PO Last administered on 09/02/18 08:01; Start 08/09/18 at 09:00 Vitamin D (Vitamin D3) 50,000 unit WEEKLY PO Last administered on 08/29/18at 08 :11; Start 08/15/18 at 09:00 Heparin Sodium (Porcine) (Heparin Sq) 5,000 unit Q8HRS SQ Last administered on 08/27/18at 22:37; Start 08/08/18 at 22:00; Stop 08/27/18 at 23:00; Status DC Levetiracetam (Keppra) 500 mg BID PO Last administered on 09/02/18 08:01; Start 08/08/18 at 22:00 Atorvastatin Calcium (Lipitor) 20 mg QHS PO Last administered on 09/01/18at 20: 37; Start 08/09/18 at 21:00 Insulin Human Lispro (HumaLOG) 0-5 UNITS TIDWMEALS SQ Last administered on 09/01 17:13; Start 08/09/18 at 08:00 Dextrose 12.5 gm PRN Q15MIN PRN IV SEE COMMENTS; Start 08/09/18 at 05:45 Duloxetine HCl (Cymbalta) 30 mg DAILY PO Last administered on 08/12/18at 08:06 ; Start 08/11/18 at 09:00; Stop 08/12/18 at 09:02; Status DC Duloxetine HCl (Cymbalta) 60 mg DAILY PO Last administered on 09/02/18 08:01; Start 08/13/18 at 09:00 Cephalexin HCl (Keflex) 500 mg TID PO Last administered on 08/20/18 19:28; Start 08/11/18 at 09:00; Stop 08/21/18 at 08:59; Status DC Lactobacillus Rhamnosus (Culturelle) 1 cap BID PO Last administered on 08:00; Start 08/11/18 at 09:00 Levothyroxine Sodium (Synthroid) 100 mcg 1X ONCE PO Last administered on 11/15 /18at 06:23; Start 08/15/18 at 06:30; Stop 08/15/18 at 06:31; Status DC Olanzapine (ZyPREXA ZYDIS) 10 mg PRN BID PRN PO AGITATION; Start 08/24/18 at 17:45 Olanzapine (ZyPREXA IM) 5 mg PRN BID PRN IM AGITATION Last administered on at 17:53; Start 08/24/18 at 17:45 Cefpodoxime Proxetil (Vantin) 200 mg BID PO Last administered on 08/27/18at 08: 28; Start 08/25/18 at 17:30; Stop 08/27/18 at 17:27; Status DC Gabapentin (Neurontin) 100 mg BID PO Last administered on 09/02/18at 08:00; Start 08/25/18 at 21:00 Quetiapine Fumarate (SEROquel) 12.5 mg DAILY16 PO Last administered on at 16:54; Start 08/27/18 at 16:00 Heparin Sodium (Porcine) (Heparin Sodium) 5,000 unit Q8HRS SQ Last administered on 09/02/18at 05:28; Start 08/28/18 at 06:00 Ciprofloxacin (Cipro) 500 mg BID PO Last administered on 09/02/18at 08:01; Start 08/27/18 at 21:00; Stop 09/06/18 at 20:59 Active Scripts Active Reported Venlafaxine Hcl Er (Venlafaxine Hcl) 150 Mg Tab.er.24 150 Mg PO DAILYWBKFT Quetiapine Fumarate 25 Mg Tablet 25 Mg PO DAILY Seroquel (Quetiapine Fumarate) 25 Mg Tablet 75 Mg PO QHS Namenda (Memantine Hcl) 10 Mg Tablet 10 Mg PO BID Lovastatin 40 Mg Tablet 80 Mg PO QHS Levothyroxine Sodium 100 Mcg Tablet 100 Mcg PO DAILYAC Keppra (Levetiracetam) 500 Mg Tablet 500 Mg PO BID Heparin 5,000 Unit/5 ml-Ns (Heparin Sod,Porcine/0.9 % NaCl) 5,000 Unit/5 Ml Syringe 5,000 Unit IM Q8HRS Vitamin D2 (Ergocalciferol (Vitamin D2)) 50,000 Unit Capsule 50,000 Unit PO WEEKLY Benazepril Hcl 20 Mg Tablet 20 Mg PO DAILY Aspirin 81 Mg Tab.chew 81 Mg PO DAILY Amlodipine Besylate 5 Mg Tablet 5 Mg PO DAILY Tylenol (Acetaminophen) 325 Mg Tablet 650 Mg PO PRN Q4HRS PRN I have reviewed the current psychotropics carefully including drug interactions. Risk benefit ratio favors no change other than as noted in my dictated progress note. Diagnosis: Problems: (1) Anxiety disorder (2) Mild cognitive disorder (3) Major depressive disorder, recurrent episode (4) Impulse control disorder ANTONIA BAILEY MD Sep 02, 2018 10:11
[2018-09-02 16:13] VITALS: BP 107/71
[2018-09-02] MEDS: ATORVASTATIN CALCIUM 20 MG TABLET PO SCH (19:40)
--- NOTE | 2018-09-02 22:06 | PN ---
DATE: 09/01/2018 PSYCHIATRIC PROGRESS NOTE This late entry 09/01/2018, covers elements not covered in my initial note. SUBJECTIVE: I met with the patient in the evening. The patient slept 7-1/2 hours previous night. She remains somewhat withdrawn, but less depressed, more verbal as I met with her. REVIEW OF SYSTEMS: Ambulation impaired, in wheelchair, complains of feeling cold. No CV, , pulmonary, eye, ENT system symptoms on review. MENTAL STATUS EXAM: Reasonably oriented to herself and situation. Speech moderate latency, often responses monosyllabic. Abstraction fair, computation impaired, language function intact, attention span short. Mood and affect somewhat withdrawn, but improved. LABORATORY DATA: Reviewed. IMPRESSION: Major depressive disorder, recurrent, in partial remission. Rest unchanged. PLAN: No change from initial note. MAN Han BAILEY MD DR: RAYMON/christen JOB#: [id number] / [id number]
--- NOTE | 2018-09-02 22:45 | PDOC ---
Exam Note: José Miguel Note: Please also refer to the separate dictated note~for this date of service dictated separately.~Patient seen individually. Discussed the patient with Nursing staff reviewed the chart.~Reviewed interim history and current functioning. Reviewed vital signs,~Labs/ Radiology~and current medications noted below. Continue current treatment with the changes noted in the dictated addendum note Assessment: Vital Signs: Vital Signs Date Time Temp Pulse Resp B/P (MAP) Pulse Ox O2 Delivery O2 Flow Rate FiO2 09/02/18 16:13 97.1 84 18 107/71 (83) 96 08/31/18 15:57 Room Air I&O Intake and Output 09/02/18 07:00 Intake Total 1200 ml Balance 1200 ml Intake Oral 1200 ml Labs: Laboratory Tests Test 09/02/18 07:20 09/02/18 07:32 09/02/18 11:48 09/02/18 17:01 White Blood Count 4.9 x10^3/uL (4.0-11.0) Red Blood Count 3.71 x10^6/uL (3.50-5.40) Hemoglobin 11.6 g/dL (12.0-15.5) L Hematocrit 34.1 % (36.0-47.0) L Mean Corpuscular Volume 92 fL (79-100) Mean Corpuscular Hemoglobin 31 pg (25-35) Mean Corpuscular Hemoglobin Concent 34 g/dL (31-37) Red Cell Distribution Width 14.8 % (11.5-14.5) H Platelet Count 198 x10^3/uL (140-400) Neutrophils (%) (Auto) 50 % (31-73) Lymphocytes (%) (Auto) 40 % (24-48) Monocytes (%) (Auto) 6 % (0-9) Eosinophils (%) (Auto) 4 % (0-3) H Basophils (%) (Auto) 1 % (0-3) Neutrophils # (Auto) 2.4 x10^3uL (1.8-7.7) Lymphocytes # (Auto) 2.0 x10^3/uL (1.0-4.8) Monocytes # (Auto) 0.3 x10^3/uL (0.0-1.1) Eosinophils # (Auto) 0.2 x10^3/uL (0.0-0.7) Basophils # (Auto) 0.1 x10^3/uL (0.0-0.2) Sodium Level 137 mmol/L (136-145) Potassium Level 4.0 mmol/L (3.5-5.1) Chloride Level 99 mmol/L (98-107) Carbon Dioxide Level 32 mmol/L (21-32) Anion Gap 6 (6-14) Blood Urea Nitrogen 17 mg/dL (7-20) Creatinine 0.9 mg/dL (0.6-1.0) Estimated GFR (Cockcroft-Gault) 61.0 BUN/Creatinine Ratio 19 (6-20) Glucose Level 185 mg/dL (70-99) H Calcium Level 9.1 mg/dL (8.5-10.1) Total Bilirubin 0.3 mg/dL (0.2-1.0) Aspartate Amino Transferase (AST) 19 U/L (15-37) Alanine Aminotransferase (ALT) 27 U/L (14-59) Alkaline Phosphatase 89 U/L (46-116) Total Protein 7.4 g/dL (6.4-8.2) Albumin 3.2 g/dL (3.4-5.0) L Albumin/Globulin Ratio 0.8 (1.0-1.7) L Glucose (Fingerstick) 179 mg/dL (70-99) H 156 mg/dL (70-99) H 232 mg/dL (70-99) H Test 09/02/18 19:52 Glucose (Fingerstick) 268 mg/dL (70-99) H Current Medications: Meds: Current Medications Acetaminophen (Tylenol) 650 mg PRN Q6HRS PRN PO PAIN / TEMP Last administered on 08/30/18at 08:30; Start 08/08/18 at 20:00 Multi-Ingredient Ointment (Analgesic [place]) 1 diana PRN QID PRN TP MUSCLE PAIN; Start 08/08/18 at 20:00 Al Hydroxide/Mg Hydroxide (Mylanta Plus Xs) 15 ml PRN AFTMEALHC PRN PO DYSPEPSIA; Start 08/08/18 at 20:00 Magnesium Hydroxide (Milk Of Magnesia) 2,400 mg PRN QHS PRN PO CONSTIPATION Last administered on 09/01/18at 18:08; Start 08/08/18 at 20:00 Memantine (Namenda) 10 mg BID PO Last administered on 09/02/18 19:40; Start 08/08/18 at 22:00 Quetiapine Fumarate (SEROquel) 25 mg DAILY PO Last administered on 09/02/18 08 :01; Start 08/09/18 at 09:00 Quetiapine Fumarate (SEROquel) 75 mg HS PO Last administered on 09/02/18 19:40 ; Start 08/08/18 at 22:00 Venlafaxine HCl (Effexor) 50 mg TID PO Last administered on 08/10/18 13:40; Start 08/09/18 at 09:00; Stop 08/10/18 at 17:54; Status DC Acetaminophen (Tylenol) 650 mg PRN Q4HRS PRN PO PAIN / TEMP; Start 08/08/18 at 21:30; Status Cancel Levothyroxine Sodium (Synthroid) 100 mcg DAILY06 PO Last administered on 05:27; Start 08/09/18 at 06:00 Amlodipine Besylate (Norvasc) 5 mg DAILY PO Last administered on 09/02/18 08: 02; Start 08/09/18 at 09:00 Aspirin (Children'S Aspirin) 81 mg DAILY PO Last administered on 09/02/18 08: 01; Start 08/09/18 at 09:00 Lisinopril (Prinivil) 20 mg DAILY PO Last administered on 09/02/18 08:01; Start 08/09/18 at 09:00 Vitamin D (Vitamin D3) 50,000 unit WEEKLY PO Last administered on 08/29/18at 08 :11; Start 08/15/18 at 09:00 Heparin Sodium (Porcine) (Heparin Sq) 5,000 unit Q8HRS SQ Last administered on 08/27/18at 22:37; Start 08/08/18 at 22:00; Stop 08/27/18 at 23:00; Status DC Levetiracetam (Keppra) 500 mg BID PO Last administered on 09/02/18 19:40; Start 08/08/18 at 22:00 Atorvastatin Calcium (Lipitor) 20 mg QHS PO Last administered on 09/02/18 19: 40; Start 08/09/18 at 21:00 Insulin Human Lispro (HumaLOG) 0-5 UNITS TIDWMEALS SQ Last administered on 09/02at 17:00; Start 08/09/18 at 08:00 Dextrose 12.5 gm PRN Q15MIN PRN IV SEE COMMENTS; Start 08/09/18 at 05:45 Duloxetine HCl (Cymbalta) 30 mg DAILY PO Last administered on 08/12/18at 08:06 ; Start 08/11/18 at 09:00; Stop 08/12/18 at 09:02; Status DC Duloxetine HCl (Cymbalta) 60 mg DAILY PO Last administered on 09/02/18at 08:01; Start 08/13/18 at 09:00 Cephalexin HCl (Keflex) 500 mg TID PO Last administered on 08/20/18at 19:28; Start 08/11/18 at 09:00; Stop 08/21/18 at 08:59; Status DC Lactobacillus Rhamnosus (Culturelle) 1 cap BID PO Last administered on at 19:39; Start 08/11/18 at 09:00 Levothyroxine Sodium (Synthroid) 100 mcg 1X ONCE PO Last administered on 08/15at 06:23; Start 08/15/18 at 06:30; Stop 08/15/18 at 06:31; Status DC Olanzapine (ZyPREXA ZYDIS) 10 mg PRN BID PRN PO AGITATION; Start 08/24/18 at 17:45 Olanzapine (ZyPREXA IM) 5 mg PRN BID PRN IM AGITATION Last administered on at 17:53; Start 08/24/18 at 17:45 Cefpodoxime Proxetil (Vantin) 200 mg BID PO Last administered on 08/27/18at 08: 28; Start 08/25/18 at 17:30; Stop 08/27/18 at 17:27; Status DC Gabapentin (Neurontin) 100 mg BID PO Last administered on 09/02/18at 19:39; Start 08/25/18 at 21:00 Quetiapine Fumarate (SEROquel) 12.5 mg DAILY16 PO Last administered on at 16:55; Start 08/27/18 at 16:00 Heparin Sodium (Porcine) (Heparin Sodium) 5,000 unit Q8HRS SQ Last administered on 09/02/18at 19:43; Start 08/28/18 at 06:00 Ciprofloxacin (Cipro) 500 mg BID PO Last administered on 09/02/18at 19:39; Start 08/27/18 at 21:00; Stop 09/06/18 at 20:59 Active Scripts Active Reported Venlafaxine Hcl Er (Venlafaxine Hcl) 150 Mg Tab.er.24 150 Mg PO DAILYWBKFT Quetiapine Fumarate 25 Mg Tablet 25 Mg PO DAILY Seroquel (Quetiapine Fumarate) 25 Mg Tablet 75 Mg PO QHS Namenda (Memantine Hcl) 10 Mg Tablet 10 Mg PO BID Lovastatin 40 Mg Tablet 80 Mg PO QHS Levothyroxine Sodium 100 Mcg Tablet 100 Mcg PO DAILYAC Keppra (Levetiracetam) 500 Mg Tablet 500 Mg PO BID Heparin 5,000 Unit/5 ml-Ns (Heparin Sod,Porcine/0.9 % NaCl) 5,000 Unit/5 Ml Syringe 5,000 Unit IM Q8HRS Vitamin D2 (Ergocalciferol (Vitamin D2)) 50,000 Unit Capsule 50,000 Unit PO WEEKLY Benazepril Hcl 20 Mg Tablet 20 Mg PO DAILY Aspirin 81 Mg Tab.chew 81 Mg PO DAILY Amlodipine Besylate 5 Mg Tablet 5 Mg PO DAILY Tylenol (Acetaminophen) 325 Mg Tablet 650 Mg PO PRN Q4HRS PRN I have reviewed the current psychotropics carefully including drug interactions. Risk benefit ratio favors no change other than as noted in my dictated progress note. Diagnosis: Problems: (1) Anxiety disorder (2) Mild cognitive disorder (3) Major depressive disorder, recurrent episode (4) Impulse control disorder ANTONIA BAILEY MD Sep 02, 2018 22:45
[2018-09-03] MEDS ORDERED: DULO60CA6 PO (00:36)
[2018-09-03] MEDS ORDERED: CIPR500T PO (00:36)
[2018-09-03] MEDS ORDERED: INSU100C SQ (00:37)
[2018-09-03] MEDS ORDERED: GABA-585 PO (00:37)
[2018-09-03] MEDS ORDERED: LACT1CAP19 PO (00:38)
[2018-09-03] MEDS ORDERED: METH29OI TP (00:39)
[2018-09-03] MEDS ORDERED: MAG355OR17 PO (00:39)
[2018-09-03] MEDS ORDERED: MAGN2400 PO (00:39)
[2018-09-03] MEDS ORDERED: OLAN10VI2 IM (00:40)
[2018-09-03] MEDS ORDERED: OLAN10TA9 PO (00:40)
[2018-09-03] MEDS ORDERED: QUET25TA5 PO (00:41)
[2018-09-03] MEDS: LEVOTHYROXINE 100 MCG TABLET PO SCH (05:33)
[2018-09-03] MEDS: HEPARIN for SUB-Q USE 5,000 UNIT/ML VIAL. SQ SCH ×3 (05:38→20:08)
[2018-09-03 06:11] VITALS: BP 142/77
[2018-09-03] MEDS: INSULIN LISPRO 300 UNITS/3 ML INSULN.PEN. SQ SCH ×3 (08:00→17:25)
[2018-09-03] MEDS: LACTOBACILLUS RHAMNOSUS GG 1 CAPSULE. PO SCH ×2 (08:58→20:03)
[2018-09-03] MEDS: levETIRAcetam 500 MG TABLET PO SCH ×2 (08:58→20:03)
[2018-09-03] MEDS: GABAPENTIN 100 MG CAPSULE. PO SCH ×2 (08:58→20:03)
[2018-09-03] MEDS: DULoxetine HCL 60 MG CAPSULE.DR PO SCH (08:58)
[2018-09-03] MEDS: ASPIRIN 81 MG TAB.CHEW PO SCH (08:58)
[2018-09-03] MEDS: CIPROFLOXACIN HCL 500 MG TABLET PO SCH ×2 (08:58→20:03)
[2018-09-03] MEDS: amLODIPine BESYLATE 5 MG TABLET PO SCH (08:58)
[2018-09-03] MEDS: MEMANTINE 10 MG TABLET. PO SCH ×2 (08:59→20:03)
[2018-09-03] MEDS: LISINOPRIL 20 MG TABLET PO SCH (08:59)
[2018-09-03] MEDS: QUEtiapine 25 MG TABLET. PO SCH ×3 (08:59→20:03)
[2018-09-03 16:30] VITALS: BP 142/68
[2018-09-03] MEDS: ATORVASTATIN CALCIUM 20 MG TABLET PO SCH (20:03)
--- NOTE | 2018-09-03 21:23 | PN ---
DATE: 09/02/2018 PSYCHIATRIC PROGRESS NOTE This late entry 09/02/2018 covers elements not covered in my initial note. SUBJECTIVE: I met with the patient in the evening. The patient slept 7-1/2 hours previous night. She has been cooperative, pleasant, confused, but more appropriate with less crying spells. REVIEW OF SYSTEMS: Ambulation impaired, in wheelchair. No CV, , pulmonary, eye, ENT system symptoms on review. MENTAL STATUS EXAM: Oriented to herself and situation. Speech has some latency, low in rate and rhythm, low in volume, often responses monosyllabic. Abstraction fair, computation impaired, language function intact, attention span short. Mood and affect still somewhat dysphoric, but much improved in her mood. LABORATORY DATA: Reviewed. 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 Rest unchanged. PLAN: No change from initial note. ANTONIA BAILEY MD DR: RAYMON/christen JOB#: [id number] / [id number]
--- NOTE | 2018-09-03 22:44 | PDOC ---
Exam Note: José Miguel Note: Please also refer to the separate dictated note~for this date of service dictated separately.~Patient seen individually. Discussed the patient with Nursing staff reviewed the chart.~Reviewed interim history and current functioning. Reviewed vital signs,~Labs/ Radiology~and current medications noted below. Continue current treatment with the changes noted in the dictated addendum note Assessment: Vital Signs: Vital Signs Date Time Temp Pulse Resp B/P (MAP) Pulse Ox O2 Delivery O2 Flow Rate FiO2 09/03/18 16:30 97.4 84 18 142/68 (92) 96 Room Air I&O Intake and Output 09/03/18 07:00 Intake Total 1200 ml Balance 1200 ml Intake Oral 1200 ml Labs: Laboratory Tests Test 09/03/18 07:20 09/03/18 11:51 09/03/18 17:02 09/03/18 19:12 Glucose (Fingerstick) 188 mg/dL (70-99) H 218 mg/dL (70-99) H 237 mg/dL (70-99) H 232 mg/dL (70-99) H Current Medications: Meds: Current Medications Acetaminophen (Tylenol) 650 mg PRN Q6HRS PRN PO PAIN / TEMP Last administered on 08/30/18at 08:30; Start 08/08/18 at 20:00 Multi-Ingredient Ointment (Analgesic [place]) 1 frank PRN QID PRN TP MUSCLE PAIN; Start 08/08/18 at 20:00 Al Hydroxide/Mg Hydroxide (Mylanta Plus Xs) 15 ml PRN AFTMEALHC PRN PO DYSPEPSIA; Start 08/08/18 at 20:00 Magnesium Hydroxide (Milk Of Magnesia) 2,400 mg PRN QHS PRN PO CONSTIPATION Last administered on 09/01/18at 18:08; Start 08/08/18 at 20:00 Memantine (Namenda) 10 mg BID PO Last administered on 09/03/18at 20:03; Start 08/08/18 at 22:00 Quetiapine Fumarate (SEROquel) 25 mg DAILY PO Last administered on 09/03/18at 08 :59; Start 08/09/18 at 09:00 Quetiapine Fumarate (SEROquel) 75 mg HS PO Last administered on 09/03/18at 20:03 ; Start 08/08/18 at 22:00 Venlafaxine HCl (Effexor) 50 mg TID PO Last administered on 08/10/18at 13:40; Start 08/09/18 at 09:00; Stop 08/10/18 at 17:54; Status DC Acetaminophen (Tylenol) 650 mg PRN Q4HRS PRN PO PAIN / TEMP; Start 08/08/18 at 21:30; Status Cancel Levothyroxine Sodium (Synthroid) 100 mcg DAILY06 PO Last administered on at 05:33; Start 08/09/18 at 06:00 Amlodipine Besylate (Norvasc) 5 mg DAILY PO Last administered on 09/03/18 08: 58; Start 08/09/18 at 09:00 Aspirin (Children'S Aspirin) 81 mg DAILY PO Last administered on 09/03/18 08: 58; Start 08/09/18 at 09:00 Lisinopril (Prinivil) 20 mg DAILY PO Last administered on 09/03/18 08:59; Start 08/09/18 at 09:00 Vitamin D (Vitamin D3) 50,000 unit WEEKLY PO Last administered on 08/29/18at 08 :11; Start 08/15/18 at 09:00 Heparin Sodium (Porcine) (Heparin Sq) 5,000 unit Q8HRS SQ Last administered on 08/27/18at 22:37; Start 08/08/18 at 22:00; Stop 08/27/18 at 23:00; Status DC Levetiracetam (Keppra) 500 mg BID PO Last administered on 09/03/18 20:03; Start 08/08/18 at 22:00 Atorvastatin Calcium (Lipitor) 20 mg QHS PO Last administered on 09/03/18at 20: 03; Start 08/09/18 at 21:00 Insulin Human Lispro (HumaLOG) 0-5 UNITS TIDWMEALS SQ Last administered on 09/03 17:25; Start 08/09/18 at 08:00 Dextrose 12.5 gm PRN Q15MIN PRN IV SEE COMMENTS; Start 08/09/18 at 05:45 Duloxetine HCl (Cymbalta) 30 mg DAILY PO Last administered on 08/12/18at 08:06 ; Start 08/11/18 at 09:00; Stop 08/12/18 at 09:02; Status DC Duloxetine HCl (Cymbalta) 60 mg DAILY PO Last administered on 09/03/18at 08:58; Start 08/13/18 at 09:00 Cephalexin HCl (Keflex) 500 mg TID PO Last administered on 08/20/18at 19:28; Start 08/11/18 at 09:00; Stop 08/21/18 at 08:59; Status DC Lactobacillus Rhamnosus (Culturelle) 1 cap BID PO Last administered on at 20:03; Start 08/11/18 at 09:00 Levothyroxine Sodium (Synthroid) 100 mcg 1X ONCE PO Last administered on 08/15at 06:23; Start 08/15/18 at 06:30; Stop 08/15/18 at 06:31; Status DC Olanzapine (ZyPREXA ZYDIS) 10 mg PRN BID PRN PO AGITATION; Start 08/24/18 at 17:45 Olanzapine (ZyPREXA IM) 5 mg PRN BID PRN IM AGITATION Last administered on at 17:53; Start 08/24/18 at 17:45 Cefpodoxime Proxetil (Vantin) 200 mg BID PO Last administered on 08/27/18at 08: 28; Start 08/25/18 at 17:30; Stop 08/27/18 at 17:27; Status DC Gabapentin (Neurontin) 100 mg BID PO Last administered on 09/03/18 20:03; Start 08/25/18 at 21:00 Quetiapine Fumarate (SEROquel) 12.5 mg DAILY16 PO Last administered on at 16:32; Start 08/27/18 at 16:00 Heparin Sodium (Porcine) (Heparin Sodium) 5,000 unit Q8HRS SQ Last administered on 09/03/18 20:08; Start 08/28/18 at 06:00 Ciprofloxacin (Cipro) 500 mg BID PO Last administered on 09/03/18 20:03; Start 08/27/18 at 21:00; Stop 09/06/18 at 20:59 Active Scripts Active Reported Seroquel (Quetiapine Fumarate) 25 Mg Tablet 12.5 Mg PO DAILY16 Olanzapine 10 Mg Tablet 10 Mg PO PRN BID PRN Olanzapine Inj (Olanzapine) 10 Mg Vial 5 Mg IM PRN BID PRN Analgesic [place] (Methyl Salicylate/Menthol) 28 Gm Oint...g. 1 Frank TP PRN QID PRN Milk Of Magnesia (Magnesium Hydroxide) 2,400 Mg/10 Ml Oral.susp 2,400 Mg PO PRN QHS PRN Advanced Antacid Liquid (Mag Hydrox/Al Hydrox/Simeth) 355 Ml Oral.susp 15 Ml PO PRN AFTMEALHC PRN Culturelle (Lactobacillus Rhamnosus Gg) 1 Each Cap.sprink 1 Cap PO BID Humalog (Insulin Lispro) 100 Unit/1 Ml Cartridge 0-5 Unit SQ TIDWMEALS Gabapentin 100 Mg Capsule 100 Mg PO BID Cymbalta (Duloxetine Hcl) 60 Mg Capsule.dr 60 Mg PO DAILY Ciprofloxacin Hcl 500 Mg Tablet 500 Mg PO BID Venlafaxine Hcl Er (Venlafaxine Hcl) 150 Mg Tab.er.24 150 Mg PO DAILYWBKFT Quetiapine Fumarate 25 Mg Tablet 25 Mg PO DAILY Seroquel (Quetiapine Fumarate) 25 Mg Tablet 75 Mg PO QHS Namenda (Memantine Hcl) 10 Mg Tablet 10 Mg PO BID Lovastatin 40 Mg Tablet 80 Mg PO QHS Levothyroxine Sodium 100 Mcg Tablet 100 Mcg PO DAILYAC Keppra (Levetiracetam) 500 Mg Tablet 500 Mg PO BID Heparin 5,000 Unit/5 ml-Ns (Heparin Sod,Porcine/0.9 % NaCl) 5,000 Unit/5 Ml Syringe 5,000 Unit IM Q8HRS Vitamin D2 (Ergocalciferol (Vitamin D2)) 50,000 Unit Capsule 50,000 Unit PO WEEKLY Benazepril Hcl 20 Mg Tablet 20 Mg PO DAILY Aspirin 81 Mg Tab.chew 81 Mg PO DAILY Amlodipine Besylate 5 Mg Tablet 5 Mg PO DAILY Tylenol (Acetaminophen) 325 Mg Tablet 650 Mg PO PRN Q4HRS PRN I have reviewed the current psychotropics carefully including drug interactions. Risk benefit ratio favors no change other than as noted in my dictated progress note. Diagnosis: Problems: (1) Anxiety disorder (2) Mild cognitive disorder (3) Major depressive disorder, recurrent episode (4) Impulse control disorder ANTONIA BAILEY MD Sep 03, 2018 22:44
[2018-09-04] MEDS: LEVOTHYROXINE 100 MCG TABLET PO SCH (05:36)
[2018-09-04] MEDS: HEPARIN for SUB-Q USE 5,000 UNIT/ML VIAL. SQ SCH ×3 (05:36→20:00)
[2018-09-04 06:23] VITALS: BP 139/85
[2018-09-04] MEDS: INSULIN LISPRO 300 UNITS/3 ML INSULN.PEN. SQ SCH ×3 (08:44→16:40)
[2018-09-04] MEDS: CIPROFLOXACIN HCL 500 MG TABLET PO SCH ×2 (08:44→19:57)
[2018-09-04] MEDS: QUEtiapine 25 MG TABLET. PO SCH ×3 (08:44→19:57)
[2018-09-04] MEDS: LACTOBACILLUS RHAMNOSUS GG 1 CAPSULE. PO SCH ×2 (08:44→19:57)
[2018-09-04] MEDS: GABAPENTIN 100 MG CAPSULE. PO SCH ×2 (08:46→19:57)
[2018-09-04] MEDS: MEMANTINE 10 MG TABLET. PO SCH ×2 (08:46→19:57)
[2018-09-04] MEDS: LISINOPRIL 20 MG TABLET PO SCH (08:46)
[2018-09-04] MEDS: DULoxetine HCL 60 MG CAPSULE.DR PO SCH (08:46)
[2018-09-04] MEDS: ASPIRIN 81 MG TAB.CHEW PO SCH (08:46)
[2018-09-04] MEDS: levETIRAcetam 500 MG TABLET PO SCH ×2 (08:46→19:57)
[2018-09-04] MEDS: amLODIPine BESYLATE 5 MG TABLET PO SCH (08:46)
[2018-09-04 16:20] VITALS: BP 114/73
[2018-09-04] MEDS: ATORVASTATIN CALCIUM 20 MG TABLET PO SCH (19:57)
--- NOTE | 2018-09-04 21:36 | PN ---
DATE: 09/03/2018 PSYCHIATRIC PROGRESS NOTE This late entry 09/03/2018 covers elements not covered in my initial note. SUBJECTIVE: I met with the patient in the evening. The patient slept 6 hours previous night. She has been cooperative, attending groups sometimes withdrawn, complains of feeling cold as I met with her. REVIEW OF SYSTEMS: Ambulation impaired, in wheelchair. No CV, , pulmonary, eye, ENT system symptoms on review. MENTAL STATUS EXAM: Oriented to herself and situation. Speech has some latency, coherent. Abstraction fair, computation impaired, language function intact, attention span short. Mood and affect still withdrawn, but improved. LABORATORY DATA: Reviewed. 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 PLAN: Continue psychotropics from initial note. Adjust as clinically indicated. MAN Han BAILEY MD DR: RAYMON/christen JOB#: [id number] / [id number]
--- NOTE | 2018-09-04 22:45 | PDOC ---
Exam Note: José Miguel Note: Please also refer to the separate dictated note~for this date of service dictated separately.~Patient seen individually. Discussed the patient with Nursing staff reviewed the chart.~Reviewed interim history and current functioning. Reviewed vital signs,~Labs/ Radiology~and current medications noted below. Continue current treatment with the changes noted in the dictated addendum note Assessment: Vital Signs: Vital Signs Date Time Temp Pulse Resp B/P (MAP) Pulse Ox O2 Delivery O2 Flow Rate FiO2 09/04/18 16:20 98.1 85 19 114/73 (87) 96 09/03/18 16:30 Room Air I&O Intake and Output 09/04/18 07:00 Intake Total 1080 ml Balance 1080 ml Intake Oral 1080 ml Labs: Laboratory Tests Test 09/04/18 07:59 09/04/18 12:16 09/04/18 16:35 09/04/18 19:27 Glucose (Fingerstick) 179 mg/dL (70-99) H 180 mg/dL (70-99) H 190 mg/dL (70-99) H 291 mg/dL (70-99) H Current Medications: Meds: Current Medications Acetaminophen (Tylenol) 650 mg PRN Q6HRS PRN PO PAIN / TEMP Last administered on 08/30/18at 08:30; Start 08/08/18 at 20:00 Multi-Ingredient Ointment (Analgesic [place]) 1 frank PRN QID PRN TP MUSCLE PAIN; Start 08/08/18 at 20:00 Al Hydroxide/Mg Hydroxide (Mylanta Plus Xs) 15 ml PRN AFTMEALHC PRN PO DYSPEPSIA; Start 08/08/18 at 20:00 Magnesium Hydroxide (Milk Of Magnesia) 2,400 mg PRN QHS PRN PO CONSTIPATION Last administered on 09/01/18at 18:08; Start 08/08/18 at 20:00 Memantine (Namenda) 10 mg BID PO Last administered on 09/04/18 19:57; Start 08/08/18 at 22:00 Quetiapine Fumarate (SEROquel) 25 mg DAILY PO Last administered on 09/04/18at 08 :44; Start 08/09/18 at 09:00 Quetiapine Fumarate (SEROquel) 75 mg HS PO Last administered on 09/04/18 19:57 ; Start 08/08/18 at 22:00 Venlafaxine HCl (Effexor) 50 mg TID PO Last administered on 08/10/18 13:40; Start 08/09/18 at 09:00; Stop 08/10/18 at 17:54; Status DC Acetaminophen (Tylenol) 650 mg PRN Q4HRS PRN PO PAIN / TEMP; Start 08/08/18 at 21:30; Status Cancel Levothyroxine Sodium (Synthroid) 100 mcg DAILY06 PO Last administered on 05:36; Start 08/09/18 at 06:00 Amlodipine Besylate (Norvasc) 5 mg DAILY PO Last administered on 09/04/18 08: 46; Start 08/09/18 at 09:00 Aspirin (Children'S Aspirin) 81 mg DAILY PO Last administered on 09/04/18 08: 46; Start 08/09/18 at 09:00 Lisinopril (Prinivil) 20 mg DAILY PO Last administered on 09/04/18at 08:46; Start 08/09/18 at 09:00 Vitamin D (Vitamin D3) 50,000 unit WEEKLY PO Last administered on 08/29/18at 08 :11; Start 08/15/18 at 09:00 Heparin Sodium (Porcine) (Heparin Sq) 5,000 unit Q8HRS SQ Last administered on 08/27/18at 22:37; Start 08/08/18 at 22:00; Stop 08/27/18 at 23:00; Status DC Levetiracetam (Keppra) 500 mg BID PO Last administered on 09/04/18 19:57; Start 08/08/18 at 22:00 Atorvastatin Calcium (Lipitor) 20 mg QHS PO Last administered on 09/04/18 19: 57; Start 08/09/18 at 21:00 Insulin Human Lispro (HumaLOG) 0-5 UNITS TIDWMEALS SQ Last administered on 09/03at 17:25; Start 08/09/18 at 08:00 Dextrose 12.5 gm PRN Q15MIN PRN IV SEE COMMENTS; Start 08/09/18 at 05:45 Duloxetine HCl (Cymbalta) 30 mg DAILY PO Last administered on 08/12/18at 08:06 ; Start 08/11/18 at 09:00; Stop 08/12/18 at 09:02; Status DC Duloxetine HCl (Cymbalta) 60 mg DAILY PO Last administered on 09/04/18at 08:46; Start 08/13/18 at 09:00 Cephalexin HCl (Keflex) 500 mg TID PO Last administered on 08/20/18at 19:28; Start 08/11/18 at 09:00; Stop 08/21/18 at 08:59; Status DC Lactobacillus Rhamnosus (Culturelle) 1 cap BID PO Last administered on 19:57; Start 08/11/18 at 09:00 Levothyroxine Sodium (Synthroid) 100 mcg 1X ONCE PO Last administered on 08/15at 06:23; Start 08/15/18 at 06:30; Stop 08/15/18 at 06:31; Status DC Olanzapine (ZyPREXA ZYDIS) 10 mg PRN BID PRN PO AGITATION; Start 08/24/18 at 17:45 Olanzapine (ZyPREXA IM) 5 mg PRN BID PRN IM AGITATION Last administered on at 17:53; Start 08/24/18 at 17:45 Cefpodoxime Proxetil (Vantin) 200 mg BID PO Last administered on 08/27/18at 08: 28; Start 08/25/18 at 17:30; Stop 08/27/18 at 17:27; Status DC Gabapentin (Neurontin) 100 mg BID PO Last administered on 09/04/18 19:57; Start 08/25/18 at 21:00 Quetiapine Fumarate (SEROquel) 12.5 mg DAILY16 PO Last administered on at 16:27; Start 08/27/18 at 16:00 Heparin Sodium (Porcine) (Heparin Sodium) 5,000 unit Q8HRS SQ Last administered on 09/04/18 20:00; Start 08/28/18 at 06:00 Ciprofloxacin (Cipro) 500 mg BID PO Last administered on 09/04/18 19:57; Start 08/27/18 at 21:00; Stop 09/06/18 at 20:59 Active Scripts Active Reported Seroquel (Quetiapine Fumarate) 25 Mg Tablet 12.5 Mg PO DAILY16 Olanzapine 10 Mg Tablet 10 Mg PO PRN BID PRN Olanzapine Inj (Olanzapine) 10 Mg Vial 5 Mg IM PRN BID PRN Analgesic [place] (Methyl Salicylate/Menthol) 28 Gm Oint...g. 1 Frank TP PRN QID PRN Milk Of Magnesia (Magnesium Hydroxide) 2,400 Mg/10 Ml Oral.susp 2,400 Mg PO PRN QHS PRN Advanced Antacid Liquid (Mag Hydrox/Al Hydrox/Simeth) 355 Ml Oral.susp 15 Ml PO PRN AFTMEALHC PRN Culturelle (Lactobacillus Rhamnosus Gg) 1 Each Cap.sprink 1 Cap PO BID Humalog (Insulin Lispro) 100 Unit/1 Ml Cartridge 0-5 Unit SQ TIDWMEALS Gabapentin 100 Mg Capsule 100 Mg PO BID Cymbalta (Duloxetine Hcl) 60 Mg Capsule.dr 60 Mg PO DAILY Ciprofloxacin Hcl 500 Mg Tablet 500 Mg PO BID Venlafaxine Hcl Er (Venlafaxine Hcl) 150 Mg Tab.er.24 150 Mg PO DAILYWBKFT Quetiapine Fumarate 25 Mg Tablet 25 Mg PO DAILY Seroquel (Quetiapine Fumarate) 25 Mg Tablet 75 Mg PO QHS Namenda (Memantine Hcl) 10 Mg Tablet 10 Mg PO BID Lovastatin 40 Mg Tablet 80 Mg PO QHS Levothyroxine Sodium 100 Mcg Tablet 100 Mcg PO DAILYAC Keppra (Levetiracetam) 500 Mg Tablet 500 Mg PO BID Heparin 5,000 Unit/5 ml-Ns (Heparin Sod,Porcine/0.9 % NaCl) 5,000 Unit/5 Ml Syringe 5,000 Unit IM Q8HRS Vitamin D2 (Ergocalciferol (Vitamin D2)) 50,000 Unit Capsule 50,000 Unit PO WEEKLY Benazepril Hcl 20 Mg Tablet 20 Mg PO DAILY Aspirin 81 Mg Tab.chew 81 Mg PO DAILY Amlodipine Besylate 5 Mg Tablet 5 Mg PO DAILY Tylenol (Acetaminophen) 325 Mg Tablet 650 Mg PO PRN Q4HRS PRN I have reviewed the current psychotropics carefully including drug interactions. Risk benefit ratio favors no change other than as noted in my dictated progress note. Diagnosis: Problems: (1) Anxiety disorder (2) Mild cognitive disorder (3) Major depressive disorder, recurrent episode (4) Impulse control disorder ANTONIA BAILEY MD Sep 04, 2018 22:45
[2018-09-04] MEDS: METHYL SALICYLATE/MENTHOL TOPICAL OINTMENT 29GM TUBE. TP PRN (22:49)
[2018-09-05 06:18] VITALS: BP 112/74
[2018-09-05] MEDS: LEVOTHYROXINE 100 MCG TABLET PO SCH (06:22)
[2018-09-05] MEDS: HEPARIN for SUB-Q USE 5,000 UNIT/ML VIAL. SQ SCH ×3 (06:23→21:16)
[2018-09-05] MEDS: levETIRAcetam 500 MG TABLET PO SCH ×2 (08:47→21:15)
[2018-09-05] MEDS: LACTOBACILLUS RHAMNOSUS GG 1 CAPSULE. PO SCH ×2 (08:47→21:15)
[2018-09-05] MEDS: amLODIPine BESYLATE 5 MG TABLET PO SCH (08:48)
[2018-09-05] MEDS: ASPIRIN 81 MG TAB.CHEW PO SCH (08:49)
[2018-09-05] MEDS: DULoxetine HCL 60 MG CAPSULE.DR PO SCH (08:51)
[2018-09-05] MEDS: QUEtiapine 25 MG TABLET. PO SCH ×3 (08:51→21:15)
[2018-09-05] MEDS: CIPROFLOXACIN HCL 500 MG TABLET PO SCH ×2 (08:52→21:15)
[2018-09-05] MEDS: MEMANTINE 10 MG TABLET. PO SCH ×2 (08:52→21:15)
[2018-09-05] MEDS: LISINOPRIL 20 MG TABLET PO SCH (08:53)
[2018-09-05] MEDS: CHOLECALCIFEROL (VITAMIN D3) 50,000 UNIT CAPSULE PO SCH (08:57)
[2018-09-05] MEDS: GABAPENTIN 100 MG CAPSULE. PO SCH ×2 (08:57→21:15)
[2018-09-05] MEDS: INSULIN LISPRO 300 UNITS/3 ML INSULN.PEN. SQ SCH ×3 (09:13→17:00)
[2018-09-05] MEDS ORDERED: DEXTROSE 50% 25 GM / 50ML DISP.SYRIN. IV PRN (14:15)
[2018-09-05 16:10] VITALS: BP 97/66
[2018-09-05] MEDS: ATORVASTATIN CALCIUM 20 MG TABLET PO SCH (21:15)
--- NOTE | 2018-09-05 22:49 | PDOC ---
Exam Note: José Miguel Note: Please also refer to the separate dictated note~for this date of service dictated separately.~Patient seen individually. Discussed the patient with Nursing staff reviewed the chart.~Reviewed interim history and current functioning. Reviewed vital signs,~Labs/ Radiology~and current medications noted below. Continue current treatment with the changes noted in the dictated addendum note Assessment: Vital Signs: Vital Signs Date Time Temp Pulse Resp B/P (MAP) Pulse Ox O2 Delivery O2 Flow Rate FiO2 09/05/18 16:10 97.9 80 16 97/66 (76) 94 Room Air I&O Intake and Output 09/05/18 07:00 Intake Total 1200 ml Balance 1200 ml Intake Oral 1200 ml Labs: Laboratory Tests Test 09/05/18 07:25 09/05/18 11:28 09/05/18 16:32 09/05/18 19:31 Glucose (Fingerstick) 209 mg/dL (70-99) H 176 mg/dL (70-99) H 202 mg/dL (70-99) H 192 mg/dL (70-99) H Current Medications: Meds: Current Medications Acetaminophen (Tylenol) 650 mg PRN Q6HRS PRN PO PAIN / TEMP Last administered on 08/30/18at 08:30; Start 08/08/18 at 20:00 Multi-Ingredient Ointment (Analgesic [place]) 1 frank PRN QID PRN TP MUSCLE PAIN Last administered on 09/04/18at 22:49; Start 08/08/18 at 20:00 Al Hydroxide/Mg Hydroxide (Mylanta Plus Xs) 15 ml PRN AFTMEALHC PRN PO DYSPEPSIA; Start 08/08/18 at 20:00 Magnesium Hydroxide (Milk Of Magnesia) 2,400 mg PRN QHS PRN PO CONSTIPATION Last administered on 09/01/18at 18:08; Start 08/08/18 at 20:00 Memantine (Namenda) 10 mg BID PO Last administered on 09/05/18at 21:15; Start 08/08/18 at 22:00 Quetiapine Fumarate (SEROquel) 25 mg DAILY PO Last administered on 09/05/18at 08 :51; Start 08/09/18 at 09:00; Stop 09/05/18 at 11:58; Status DC Quetiapine Fumarate (SEROquel) 75 mg HS PO Last administered on 09/05/18 21:15 ; Start 08/08/18 at 22:00 Venlafaxine HCl (Effexor) 50 mg TID PO Last administered on 08/10/18at 13:40; Start 08/09/18 at 09:00; Stop 08/10/18 at 17:54; Status DC Acetaminophen (Tylenol) 650 mg PRN Q4HRS PRN PO PAIN / TEMP; Start 08/08/18 at 21:30; Status Cancel Levothyroxine Sodium (Synthroid) 100 mcg DAILY06 PO Last administered on 06:22; Start 08/09/18 at 06:00 Amlodipine Besylate (Norvasc) 5 mg DAILY PO Last administered on 09/05/18at 08: 48; Start 08/09/18 at 09:00 Aspirin (Children'S Aspirin) 81 mg DAILY PO Last administered on 09/05/18at 08: 49; Start 08/09/18 at 09:00 Lisinopril (Prinivil) 20 mg DAILY PO Last administered on 09/05/18at 08:53; Start 08/09/18 at 09:00 Vitamin D (Vitamin D3) 50,000 unit WEEKLY PO Last administered on 09/05/18at 08: 57; Start 08/15/18 at 09:00 Heparin Sodium (Porcine) (Heparin Sq) 5,000 unit Q8HRS SQ Last administered on 08/27/18at 22:37; Start 08/08/18 at 22:00; Stop 08/27/18 at 23:00; Status DC Levetiracetam (Keppra) 500 mg BID PO Last administered on 09/05/18at 21:15; Start 08/08/18 at 22:00 Atorvastatin Calcium (Lipitor) 20 mg QHS PO Last administered on 09/05/18at 21: 15; Start 08/09/18 at 21:00 Insulin Human Lispro (HumaLOG) 0-5 UNITS TIDWMEALS SQ Last administered on 09/05at 09:13; Start 08/09/18 at 08:00; Stop 09/05/18 at 14:16; Status DC Dextrose 12.5 gm PRN Q15MIN PRN IV SEE COMMENTS; Start 08/09/18 at 05:45; Stop 09/05/18 at 14:16; Status DC Duloxetine HCl (Cymbalta) 30 mg DAILY PO Last administered on 08/12/18at 08:06 ; Start 08/11/18 at 09:00; Stop 08/12/18 at 09:02; Status DC Duloxetine HCl (Cymbalta) 60 mg DAILY PO Last administered on 09/05/18at 08:51; Start 08/13/18 at 09:00 Cephalexin HCl (Keflex) 500 mg TID PO Last administered on 08/20/18at 19:28; Start 08/11/18 at 09:00; Stop 08/21/18 at 08:59; Status DC Lactobacillus Rhamnosus (Culturelle) 1 cap BID PO Last administered on 21:15; Start 08/11/18 at 09:00 Levothyroxine Sodium (Synthroid) 100 mcg 1X ONCE PO Last administered on 08/15at 06:23; Start 08/15/18 at 06:30; Stop 08/15/18 at 06:31; Status DC Olanzapine (ZyPREXA ZYDIS) 10 mg PRN BID PRN PO AGITATION; Start 08/24/18 at 17:45 Olanzapine (ZyPREXA IM) 5 mg PRN BID PRN IM AGITATION Last administered on at 17:53; Start 08/24/18 at 17:45 Cefpodoxime Proxetil (Vantin) 200 mg BID PO Last administered on 08/27/18at 08: 28; Start 08/25/18 at 17:30; Stop 08/27/18 at 17:27; Status DC Gabapentin (Neurontin) 100 mg BID PO Last administered on 09/05/18at 21:15; Start 08/25/18 at 21:00 Quetiapine Fumarate (SEROquel) 12.5 mg DAILY16 PO Last administered on at 14:39; Start 08/27/18 at 16:00 Heparin Sodium (Porcine) (Heparin Sodium) 5,000 unit Q8HRS SQ Last administered on 09/05/18 21:16; Start 08/28/18 at 06:00 Ciprofloxacin (Cipro) 500 mg BID PO Last administered on 09/05/18 21:15; Start 08/27/18 at 21:00; Stop 09/06/18 at 20:59 Insulin Human Lispro (HumaLOG) 0-9 UNITS TIDWMEALS SQ ; Start 09/05/18 at 17:00 Dextrose 12.5 gm PRN Q15MIN PRN IV SEE COMMENTS; Start 09/05/18 at 14:15 Active Scripts Active Reported Seroquel (Quetiapine Fumarate) 25 Mg Tablet 12.5 Mg PO DAILY16 Olanzapine 10 Mg Tablet 10 Mg PO PRN BID PRN Olanzapine Inj (Olanzapine) 10 Mg Vial 5 Mg IM PRN BID PRN Analgesic [place] (Methyl Salicylate/Menthol) 28 Gm Oint...g. 1 Frank TP PRN QID PRN Milk Of Magnesia (Magnesium Hydroxide) 2,400 Mg/10 Ml Oral.susp 2,400 Mg PO PRN QHS PRN Advanced Antacid Liquid (Mag Hydrox/Al Hydrox/Simeth) 355 Ml Oral.susp 15 Ml PO PRN AFTMEALHC PRN Culturelle (Lactobacillus Rhamnosus Gg) 1 Each Cap.sprink 1 Cap PO BID Humalog (Insulin Lispro) 100 Unit/1 Ml Cartridge 0-5 Unit SQ TIDWMEALS Gabapentin 100 Mg Capsule 100 Mg PO BID Cymbalta (Duloxetine Hcl) 60 Mg Capsule.dr 60 Mg PO DAILY Ciprofloxacin Hcl 500 Mg Tablet 500 Mg PO BID Venlafaxine Hcl Er (Venlafaxine Hcl) 150 Mg Tab.er.24 150 Mg PO DAILYWBKFT Quetiapine Fumarate 25 Mg Tablet 25 Mg PO DAILY Seroquel (Quetiapine Fumarate) 25 Mg Tablet 75 Mg PO QHS Namenda (Memantine Hcl) 10 Mg Tablet 10 Mg PO BID Lovastatin 40 Mg Tablet 80 Mg PO QHS Levothyroxine Sodium 100 Mcg Tablet 100 Mcg PO DAILYAC Keppra (Levetiracetam) 500 Mg Tablet 500 Mg PO BID Heparin 5,000 Unit/5 ml-Ns (Heparin Sod,Porcine/0.9 % NaCl) 5,000 Unit/5 Ml Syringe 5,000 Unit IM Q8HRS Vitamin D2 (Ergocalciferol (Vitamin D2)) 50,000 Unit Capsule 50,000 Unit PO WEEKLY Benazepril Hcl 20 Mg Tablet 20 Mg PO DAILY Aspirin 81 Mg Tab.chew 81 Mg PO DAILY Amlodipine Besylate 5 Mg Tablet 5 Mg PO DAILY Tylenol (Acetaminophen) 325 Mg Tablet 650 Mg PO PRN Q4HRS PRN I have reviewed the current psychotropics carefully including drug interactions. Risk benefit ratio favors no change other than as noted in my dictated progress note. Diagnosis: Problems: (1) Anxiety disorder (2) Mild cognitive disorder (3) Major depressive disorder, recurrent episode (4) Impulse control disorder ANTONIA BAILEY MD Sep 05, 2018 22:48
[2018-09-06] MEDS: LEVOTHYROXINE 100 MCG TABLET PO SCH (06:01)
[2018-09-06] MEDS: HEPARIN for SUB-Q USE 5,000 UNIT/ML VIAL. SQ SCH ×3 (06:02→20:03)
[2018-09-06 06:06] VITALS: BP 127/79
[2018-09-06] MEDS: levETIRAcetam 500 MG TABLET PO SCH ×2 (08:06→20:02)
[2018-09-06] MEDS: INSULIN LISPRO 300 UNITS/3 ML INSULN.PEN. SQ SCH ×3 (08:06→17:00)
[2018-09-06] MEDS: GABAPENTIN 100 MG CAPSULE. PO SCH ×2 (08:06→20:02)
[2018-09-06] MEDS: amLODIPine BESYLATE 5 MG TABLET PO SCH (08:07)
[2018-09-06] MEDS: ASPIRIN 81 MG TAB.CHEW PO SCH (08:07)
[2018-09-06] MEDS: DULoxetine HCL 60 MG CAPSULE.DR PO SCH (08:07)
[2018-09-06] MEDS: LACTOBACILLUS RHAMNOSUS GG 1 CAPSULE. PO SCH ×2 (08:07→20:02)
[2018-09-06] MEDS: MEMANTINE 10 MG TABLET. PO SCH ×2 (08:07→20:02)
[2018-09-06] MEDS: LISINOPRIL 20 MG TABLET PO SCH (08:09)
[2018-09-06] MEDS: CIPROFLOXACIN HCL 500 MG TABLET PO SCH (08:09)
[2018-09-06] MEDS: ACETAMINOPHEN 325 MG TABLET PO PRN (08:52)
[2018-09-06 16:52] VITALS: BP 155/76
[2018-09-06] MEDS: QUEtiapine 25 MG TABLET. PO SCH ×2 (17:40→20:02)
[2018-09-06] MEDS: ATORVASTATIN CALCIUM 20 MG TABLET PO SCH (20:02)
--- NOTE | 2018-09-06 20:34 | PN ---
DATE: 09/04/2018 PSYCHIATRIC PROGRESS NOTE This late entry 09/04/2018 covers elements not covered in my initial note. SUBJECTIVE: I met with the patient in the evening. The patient slept 6 hours previous night. The patient has been tired in the morning because she states nursing staff wakes her up too early in the morning. She slept late the previous night, did have a period when she sang in group therapy. No CV, , pulmonary, eye system symptoms on review. Her gait unsteady, in wheelchair. MENTAL STATUS EXAM: Oriented to herself and situation. Speech is moderate latency, often responses monosyllabic. Abstraction fair, computation impaired, language function intact, attention span short. Mood and affect still somewhat withdrawn, depressed, but improved. LABORATORY DATA: Reviewed. IMPRESSION: Unchanged from initial note. PLAN: No change from initial note. MAN Han BAILEY MD DR: RAYMON/christen JOB#: [id number] / [id number]
--- NOTE | 2018-09-06 21:59 | PN ---
DATE: 09/05/2018 PSYCHIATRIC PROGRESS NOTE This late entry 09/05/2018 covers elements not covered in my initial note. SUBJECTIVE: I met with the patient in the evening, staffed at a treatment team meeting with the entire team in the morning. The patient slept 7-3/4 hours previous evening. She has been tearful at times. She has to get up in the morning and we let her sleep in a little bit. No CV, , pulmonary, eye system symptoms on review. Gait unsteady, in wheelchair. MENTAL STATUS EXAM: Reasonably oriented. Speech has some latency, coherent. Abstraction fair, computation impaired, language function intact. Mood and affect still somewhat withdrawn, tired, but otherwise more animated. LABORATORY DATA: Reviewed. IMPRESSION: Major depressive disorder with psychotic features in partial remission. PLAN: Stop the morning Seroquel 25 mg daily due to daytime sedation. Rest unchanged for now. ANTONIA BAILEY MD DR: RAYMON/christen JOB#: [id number] / [id number]
--- NOTE | 2018-09-06 22:33 | PDOC ---
Exam Note: José Miguel Note: Please also refer to the separate dictated note~for this date of service dictated separately.~Patient seen individually. Discussed the patient with Nursing staff reviewed the chart.~Reviewed interim history and current functioning. Reviewed vital signs,~Labs/ Radiology~and current medications noted below. Continue current treatment with the changes noted in the dictated addendum note Assessment: Vital Signs: Vital Signs Date Time Temp Pulse Resp B/P (MAP) Pulse Ox O2 Delivery O2 Flow Rate FiO2 09/06/18 16:52 98.1 86 20 155/76 (102) 97 Room Air I&O Intake and Output 09/06/18 07:00 Intake Total 840 ml Balance 840 ml Intake Oral 840 ml Labs: Laboratory Tests Test 09/06/18 07:34 09/06/18 12:25 09/06/18 17:16 09/06/18 19:15 Glucose (Fingerstick) 164 mg/dL (70-99) H 154 mg/dL (70-99) H 125 mg/dL (70-99) H 185 mg/dL (70-99) H Current Medications: Meds: Current Medications Acetaminophen (Tylenol) 650 mg PRN Q6HRS PRN PO PAIN / TEMP Last administered on 09/06/18at 08:52; Start 08/08/18 at 20:00 Multi-Ingredient Ointment (Analgesic [place]) 1 frank PRN QID PRN TP MUSCLE PAIN Last administered on 09/04/18at 22:49; Start 08/08/18 at 20:00 Al Hydroxide/Mg Hydroxide (Mylanta Plus Xs) 15 ml PRN AFTMEALHC PRN PO DYSPEPSIA; Start 08/08/18 at 20:00 Magnesium Hydroxide (Milk Of Magnesia) 2,400 mg PRN QHS PRN PO CONSTIPATION Last administered on 09/01/18at 18:08; Start 08/08/18 at 20:00 Memantine (Namenda) 10 mg BID PO Last administered on 09/06/18at 20:02; Start 08/08/18 at 22:00 Quetiapine Fumarate (SEROquel) 25 mg DAILY PO Last administered on 09/05/18at 08 :51; Start 08/09/18 at 09:00; Stop 09/05/18 at 11:58; Status DC Quetiapine Fumarate (SEROquel) 75 mg HS PO Last administered on 09/06/18at 20:02 ; Start 08/08/18 at 22:00 Venlafaxine HCl (Effexor) 50 mg TID PO Last administered on 08/10/18at 13:40; Start 08/09/18 at 09:00; Stop 08/10/18 at 17:54; Status DC Acetaminophen (Tylenol) 650 mg PRN Q4HRS PRN PO PAIN / TEMP; Start 08/08/18 at 21:30; Status Cancel Levothyroxine Sodium (Synthroid) 100 mcg DAILY06 PO Last administered on 06:01; Start 08/09/18 at 06:00 Amlodipine Besylate (Norvasc) 5 mg DAILY PO Last administered on 09/06/18 08: 07; Start 08/09/18 at 09:00 Aspirin (Children'S Aspirin) 81 mg DAILY PO Last administered on 09/06/18at 08: 07; Start 08/09/18 at 09:00 Lisinopril (Prinivil) 20 mg DAILY PO Last administered on 09/06/18at 08:09; Start 08/09/18 at 09:00 Vitamin D (Vitamin D3) 50,000 unit WEEKLY PO Last administered on 09/05/18at 08: 57; Start 08/15/18 at 09:00 Heparin Sodium (Porcine) (Heparin Sq) 5,000 unit Q8HRS SQ Last administered on 08/27/18at 22:37; Start 08/08/18 at 22:00; Stop 08/27/18 at 23:00; Status DC Levetiracetam (Keppra) 500 mg BID PO Last administered on 09/06/18at 20:02; Start 08/08/18 at 22:00 Atorvastatin Calcium (Lipitor) 20 mg QHS PO Last administered on 09/06/18at 20: 02; Start 08/09/18 at 21:00 Insulin Human Lispro (HumaLOG) 0-5 UNITS TIDWMEALS SQ Last administered on 09/05at 09:13; Start 08/09/18 at 08:00; Stop 09/05/18 at 14:16; Status DC Dextrose 12.5 gm PRN Q15MIN PRN IV SEE COMMENTS; Start 08/09/18 at 05:45; Stop 09/05/18 at 14:16; Status DC Duloxetine HCl (Cymbalta) 30 mg DAILY PO Last administered on 08/12/18 08:06 ; Start 08/11/18 at 09:00; Stop 08/12/18 at 09:02; Status DC Duloxetine HCl (Cymbalta) 60 mg DAILY PO Last administered on 09/06/18 08:07; Start 08/13/18 at 09:00 Cephalexin HCl (Keflex) 500 mg TID PO Last administered on 08/20/18at 19:28; Start 08/11/18 at 09:00; Stop 08/21/18 at 08:59; Status DC Lactobacillus Rhamnosus (Culturelle) 1 cap BID PO Last administered on 20:02; Start 08/11/18 at 09:00 Levothyroxine Sodium (Synthroid) 100 mcg 1X ONCE PO Last administered on 08/15at 06:23; Start 08/15/18 at 06:30; Stop 08/15/18 at 06:31; Status DC Olanzapine (ZyPREXA ZYDIS) 10 mg PRN BID PRN PO AGITATION; Start 08/24/18 at 17:45 Olanzapine (ZyPREXA IM) 5 mg PRN BID PRN IM AGITATION Last administered on at 17:53; Start 08/24/18 at 17:45 Cefpodoxime Proxetil (Vantin) 200 mg BID PO Last administered on 08/27/18at 08: 28; Start 08/25/18 at 17:30; Stop 08/27/18 at 17:27; Status DC Gabapentin (Neurontin) 100 mg BID PO Last administered on 09/06/18 20:02; Start 08/25/18 at 21:00 Quetiapine Fumarate (SEROquel) 12.5 mg DAILY16 PO Last administered on 17:40; Start 08/27/18 at 16:00 Heparin Sodium (Porcine) (Heparin Sodium) 5,000 unit Q8HRS SQ Last administered on 09/06/18 20:03; Start 08/28/18 at 06:00 Ciprofloxacin (Cipro) 500 mg BID PO Last administered on 09/06/18at 08:09; Start 08/27/18 at 21:00; Stop 09/06/18 at 20:59; Status DC Insulin Human Lispro (HumaLOG) 0-9 UNITS TIDWMEALS SQ Last administered on 09/06at 12:53; Start 09/05/18 at 17:00 Dextrose 12.5 gm PRN Q15MIN PRN IV SEE COMMENTS; Start 09/05/18 at 14:15 Active Scripts Active Reported Seroquel (Quetiapine Fumarate) 25 Mg Tablet 12.5 Mg PO DAILY16 Olanzapine 10 Mg Tablet 10 Mg PO PRN BID PRN Olanzapine Inj (Olanzapine) 10 Mg Vial 5 Mg IM PRN BID PRN Analgesic [place] (Methyl Salicylate/Menthol) 28 Gm Oint...g. 1 Frank TP PRN QID PRN Milk Of Magnesia (Magnesium Hydroxide) 2,400 Mg/10 Ml Oral.susp 2,400 Mg PO PRN QHS PRN Advanced Antacid Liquid (Mag Hydrox/Al Hydrox/Simeth) 355 Ml Oral.susp 15 Ml PO PRN AFTMEALHC PRN Culturelle (Lactobacillus Rhamnosus Gg) 1 Each Cap.sprink 1 Cap PO BID Humalog (Insulin Lispro) 100 Unit/1 Ml Cartridge 0-5 Unit SQ TIDWMEALS Gabapentin 100 Mg Capsule 100 Mg PO BID Cymbalta (Duloxetine Hcl) 60 Mg Capsule.dr 60 Mg PO DAILY Ciprofloxacin Hcl 500 Mg Tablet 500 Mg PO BID Venlafaxine Hcl Er (Venlafaxine Hcl) 150 Mg Tab.er.24 150 Mg PO DAILYWBKFT Quetiapine Fumarate 25 Mg Tablet 25 Mg PO DAILY Seroquel (Quetiapine Fumarate) 25 Mg Tablet 75 Mg PO QHS Namenda (Memantine Hcl) 10 Mg Tablet 10 Mg PO BID Lovastatin 40 Mg Tablet 80 Mg PO QHS Levothyroxine Sodium 100 Mcg Tablet 100 Mcg PO DAILYAC Keppra (Levetiracetam) 500 Mg Tablet 500 Mg PO BID Heparin 5,000 Unit/5 ml-Ns (Heparin Sod,Porcine/0.9 % NaCl) 5,000 Unit/5 Ml Syringe 5,000 Unit IM Q8HRS Vitamin D2 (Ergocalciferol (Vitamin D2)) 50,000 Unit Capsule 50,000 Unit PO WEEKLY Benazepril Hcl 20 Mg Tablet 20 Mg PO DAILY Aspirin 81 Mg Tab.chew 81 Mg PO DAILY Amlodipine Besylate 5 Mg Tablet 5 Mg PO DAILY Tylenol (Acetaminophen) 325 Mg Tablet 650 Mg PO PRN Q4HRS PRN I have reviewed the current psychotropics carefully including drug interactions. Risk benefit ratio favors no change other than as noted in my dictated progress note. Diagnosis: Problems: (1) Anxiety disorder (2) Mild cognitive disorder (3) Major depressive disorder, recurrent episode (4) Impulse control disorder ANTONIA BAILEY MD Sep 06, 2018 22:33
[2018-09-07] MEDS: LEVOTHYROXINE 100 MCG TABLET PO SCH (05:16)
[2018-09-07] MEDS: HEPARIN for SUB-Q USE 5,000 UNIT/ML VIAL. SQ SCH ×3 (05:20→19:55)
[2018-09-07 05:52] VITALS: BP 120/72
[2018-09-07] MEDS: LISINOPRIL 20 MG TABLET PO SCH (08:10)
[2018-09-07] MEDS: MEMANTINE 10 MG TABLET. PO SCH ×2 (08:10→19:51)
[2018-09-07] MEDS: amLODIPine BESYLATE 5 MG TABLET PO SCH (08:11)
[2018-09-07] MEDS: DULoxetine HCL 60 MG CAPSULE.DR PO SCH (08:11)
[2018-09-07] MEDS: GABAPENTIN 100 MG CAPSULE. PO SCH ×2 (08:11→19:51)
[2018-09-07] MEDS: LACTOBACILLUS RHAMNOSUS GG 1 CAPSULE. PO SCH ×2 (08:11→19:51)
[2018-09-07] MEDS: ASPIRIN 81 MG TAB.CHEW PO SCH (08:11)
[2018-09-07] MEDS: levETIRAcetam 500 MG TABLET PO SCH ×2 (08:12→19:51)
[2018-09-07] MEDS: INSULIN LISPRO 300 UNITS/3 ML INSULN.PEN. SQ SCH ×3 (08:13→17:32)
[2018-09-07 08:34] LABS: BASO # 0.1 x10^3/uL (0.0-0.2); BASO % 1 % (0-3); EOS # 0.2 x10^3/uL (0.0-0.7); EOS % 4 % (0-3); HEMATOCRIT 36.2 % (36.0-47.0); HEMOGLOBIN 12.4 g/dL (12.0-15.5); LYMPH # 1.6 x10^3/uL (1.0-4.8); LYMPH % 36 % (24-48); MEAN CORPUSCULAR HEMOGLOBIN 32 pg (25-35); MEAN CORPUSCULAR HGB CONC 34 g/dL (31-37); MEAN CORPUSCULAR VOLUME 93 fL (79-100); MONO # 0.2 x10^3/uL (0.0-1.1); MONO % 6 % (0-9); NEUT # 2.3 x10^3uL (1.8-7.7); NEUT % 53 % (31-73); PLATELET COUNT 205 x10^3/uL (140-400); RED BLOOD COUNT 3.88 x10^6/uL (3.50-5.40); RED CELL DISTRIBUTION WIDTH 14.4 % (11.5-14.5); WHITE BLOOD COUNT 4.4 x10^3/uL (4.0-11.0)
[2018-09-07 08:44] LABS: ALBUMIN 3.4 g/dL (3.4-5.0); ALBUMIN/GLOBULIN RATIO 0.7 (1.0-1.7); CALCIUM 9.7 mg/dL (8.5-10.1); CREATININE 1.1 mg/dL (0.6-1.0); GFR 48.4; POTASSIUM 3.6 mmol/L (3.5-5.1); TOTAL BILIRUBIN 0.4 mg/dL (0.2-1.0)
[2018-09-07 15:46] VITALS: BP 140/82
[2018-09-07] MEDS: QUEtiapine 25 MG TABLET. PO SCH ×2 (16:52→19:52)
[2018-09-07] MEDS: ATORVASTATIN CALCIUM 20 MG TABLET PO SCH (19:51)
--- NOTE | 2018-09-07 21:30 | PN ---
DATE: 09/07/2018 SUBJECTIVE: The patient was seen today, met with the staff, chart reviewed and also covering for Dr. Rocha. The patient's behavior has improved according to staff. She has not presented with any major psychotic behavior lately. OBSERVATION: VITAL SIGNS: Temperature 97.7, blood pressure 120/72, pulse 74, respirations 20, O2 sat 97%. GENERAL: The patient slept about 7 hours last night. The patient's appetite improved. MEDICATIONS: Reviewed. Currently on Seroquel, Namenda, Keppra, Cymbalta, Zyprexa Zydis. ALLERGIES: The patient is not having any side effects to the medications. ASSESSMENT: Major depressive disorder with psychotic features. PLAN: Continue with the treatment. BERKLEY KEARNS MD DR: CARLTON/christen JOB#: [id number] / [id number]
--- NOTE | 2018-09-07 22:35 | PN ---
DATE: 09/06/2018 This late entry for 09/06/2018 covers elements not covered in my initial note. SUBJECTIVE: I met with the patient in the evening. The patient did well the previous evening, but when her [id number] visited, she was anxious, labile, wailing per nursing report and seems to be more dramatic. She slept 9-1/2 hours and seems to be anxious, labile secondary to pain in her knee. She was tearful in the morning. Doppler was negative and she has been using the CPAP. REVIEW OF SYSTEMS: Ambulation impaired, in wheelchair. No CV, , pulmonary, eye, ENT system symptoms on review. MENTAL STATUS EXAM: Oriented to herself and situation. Speech is coherent, has some latency. Abstraction fair, computation impaired, language function intact, attention-span short. Mood and affect still depressed, but improved. LABORATORY DATA: Reviewed. IMPRESSION: Major depressive disorder, recurrent, in partial remission; anxiety disorder, unspecified; cognitive disorder, unspecified. PLAN: No change from initial note. ANTONIA BAILEY MD DR: RAYMON/christen JOB#: [id number] / [id number]
[2018-09-08] MEDS: LEVOTHYROXINE 100 MCG TABLET PO SCH (05:39)
[2018-09-08] MEDS: HEPARIN for SUB-Q USE 5,000 UNIT/ML VIAL. SQ SCH ×3 (05:40→20:01)
[2018-09-08 06:08] VITALS: BP 123/74
[2018-09-08] MEDS: INSULIN LISPRO 300 UNITS/3 ML INSULN.PEN. SQ SCH ×3 (08:23→17:29)
[2018-09-08] MEDS: ASPIRIN 81 MG TAB.CHEW PO SCH (08:24)
[2018-09-08] MEDS: LACTOBACILLUS RHAMNOSUS GG 1 CAPSULE. PO SCH ×2 (08:24→20:00)
[2018-09-08] MEDS: levETIRAcetam 500 MG TABLET PO SCH ×2 (08:25→20:00)
[2018-09-08] MEDS: MEMANTINE 10 MG TABLET. PO SCH ×2 (08:25→20:00)
[2018-09-08] MEDS: GABAPENTIN 100 MG CAPSULE. PO SCH ×2 (08:25→20:00)
[2018-09-08] MEDS: DULoxetine HCL 60 MG CAPSULE.DR PO SCH (08:25)
[2018-09-08] MEDS: LISINOPRIL 20 MG TABLET PO SCH (08:26)
[2018-09-08] MEDS: amLODIPine BESYLATE 5 MG TABLET PO SCH (08:26)
[2018-09-08 16:47] VITALS: BP 128/82
[2018-09-08] MEDS: QUEtiapine 25 MG TABLET. PO SCH ×2 (17:26→20:00)
[2018-09-08] MEDS: ATORVASTATIN CALCIUM 20 MG TABLET PO SCH (20:00)
--- NOTE | 2018-09-08 21:56 | PN ---
DATE: 09/08/2018 SUBJECTIVE: The patient was seen today, met with the staff, chart reviewed. Staff reports no major problems. She is withdrawn most of the time, sleeping, has not caused any problems. The patient is interacting with the staff: OBSERVATION: VITAL SIGNS: Temperature 98.0, blood pressure 123/74, pulse 83, respirations 18, O2 sat 96%. Slept about 7 hours last night. The patient's behavior remains the same, still confused at times emotional outburst. Her medications reviewed and not having any side effects to the medications. The patient's lab reviewed. The patient is not presenting with any major medical issues at this time. ASSESSMENT: 1. Major depressive disorder, psychotic features. 2. Cognitive disorder, unspecified. PLAN: Continue with the treatment. BERKLEY KEARNS MD DR: CARLTON/christen JOB#: [id number] / [id number]
[2018-09-09] MEDS: LEVOTHYROXINE 100 MCG TABLET PO SCH (04:46)
[2018-09-09] MEDS: HEPARIN for SUB-Q USE 5,000 UNIT/ML VIAL. SQ SCH ×3 (04:49→21:01)
[2018-09-09 06:12] VITALS: BP 129/68
[2018-09-09] MEDS: amLODIPine BESYLATE 5 MG TABLET PO SCH (08:39)
[2018-09-09] MEDS: levETIRAcetam 500 MG TABLET PO SCH ×2 (08:40→20:54)
[2018-09-09] MEDS: DULoxetine HCL 60 MG CAPSULE.DR PO SCH (08:40)
[2018-09-09] MEDS: LISINOPRIL 20 MG TABLET PO SCH (08:40)
[2018-09-09] MEDS: MEMANTINE 10 MG TABLET. PO SCH ×2 (08:40→20:54)
[2018-09-09] MEDS: LACTOBACILLUS RHAMNOSUS GG 1 CAPSULE. PO SCH ×2 (08:40→20:54)
[2018-09-09] MEDS: ASPIRIN 81 MG TAB.CHEW PO SCH (08:40)
[2018-09-09] MEDS: GABAPENTIN 100 MG CAPSULE. PO SCH ×2 (08:42→20:54)
[2018-09-09] MEDS: INSULIN LISPRO 300 UNITS/3 ML INSULN.PEN. SQ SCH ×3 (08:42→17:14)
[2018-09-09] MEDS: ACETAMINOPHEN 325 MG TABLET PO PRN (09:06)
[2018-09-09 15:57] VITALS: BP 137/81
[2018-09-09] MEDS: QUEtiapine 25 MG TABLET. PO SCH ×2 (17:12→20:54)
[2018-09-09] MEDS: ATORVASTATIN CALCIUM 20 MG TABLET PO SCH (20:54)
--- NOTE | 2018-09-10 00:31 | PN ---
DATE: 09/09/2018 SUBJECTIVE: The patient was seen today, met with the staff, chart reviewed. The patient continues to show fluctuating symptoms. The patient is awake for a period of time, apparently and also sometimes very irritable and saxena with increased confusion and also tend to sleep a lot. The patient lately has not expressed any rage or anger issues. MEDICATIONS: The patient's medications reviewed. OBSERVATION: VITAL SIGNS: Temperature 97.9, blood pressure 129/68, pulse 89, respirations 16, O2 sat 93%. Slept about 8 hours last night. The patient currently not having any side effects to the medications. No major medical issues. ASSESSMENT: 1. Major depressive disorder, psychotic features. 2. Cognitive disorder, unspecified. PLAN: Continue with the treatment. BERKLEY KEARNS MD DR: CARLTON/christen JOB#: [id number] / [id number]
[2018-09-10 05:58] VITALS: BP 145/78
[2018-09-10] MEDS: LEVOTHYROXINE 100 MCG TABLET PO SCH (06:37)
[2018-09-10] MEDS: HEPARIN for SUB-Q USE 5,000 UNIT/ML VIAL. SQ SCH ×3 (06:38→20:59)
[2018-09-10] MEDS: levETIRAcetam 500 MG TABLET PO SCH ×2 (08:15→20:56)
[2018-09-10] MEDS: LACTOBACILLUS RHAMNOSUS GG 1 CAPSULE. PO SCH ×2 (08:15→20:56)
[2018-09-10] MEDS: LISINOPRIL 20 MG TABLET PO SCH (08:15)
[2018-09-10] MEDS: MEMANTINE 10 MG TABLET. PO SCH ×2 (08:15→20:56)
[2018-09-10] MEDS: ASPIRIN 81 MG TAB.CHEW PO SCH (08:15)
[2018-09-10] MEDS: GABAPENTIN 100 MG CAPSULE. PO SCH ×2 (08:16→20:56)
[2018-09-10] MEDS: DULoxetine HCL 60 MG CAPSULE.DR PO SCH (08:16)
[2018-09-10] MEDS: amLODIPine BESYLATE 5 MG TABLET PO SCH (08:16)
[2018-09-10] MEDS: INSULIN LISPRO 300 UNITS/3 ML INSULN.PEN. SQ SCH ×3 (08:18→17:16)
[2018-09-10 16:28] VITALS: BP 103/68
[2018-09-10] MEDS: QUEtiapine 25 MG TABLET. PO SCH ×2 (17:06→20:56)
[2018-09-10] MEDS: ATORVASTATIN CALCIUM 20 MG TABLET PO SCH (20:56)
--- NOTE | 2018-09-11 00:58 | PN ---
DATE: 09/10/2018 SUBJECTIVE: The patient was seen today, met with the staff, chart reviewed. The patient's behavior fluctuates. The patient has not presented with any angry outburst. OBSERVATION: VITAL SIGNS: Temperature 97.6, blood pressure 145/78, pulse 66, respirations 18, O2 sat 95%. Slept about 7 hours last night. The patient's appetite is fair. The patient's lab reviewed. ASSESSMENT: Major neurocognitive disorder with behavior problems, major depressive disorder, psychotic features. PLAN: Continue with the current treatment. BERKLEY KEARNS MD DR: CARLTON/christen JOB#: [id number] / [id number]
[2018-09-11 06:03] VITALS: BP 137/83
[2018-09-11] MEDS: LEVOTHYROXINE 100 MCG TABLET PO SCH (06:03)
[2018-09-11] MEDS: HEPARIN for SUB-Q USE 5,000 UNIT/ML VIAL. SQ SCH ×3 (06:06→20:54)
[2018-09-11] MEDS: INSULIN LISPRO 300 UNITS/3 ML INSULN.PEN. SQ SCH ×3 (09:02→17:34)
[2018-09-11] MEDS: MEMANTINE 10 MG TABLET. PO SCH ×2 (09:30→19:20)
[2018-09-11] MEDS: DULoxetine HCL 60 MG CAPSULE.DR PO SCH (09:30)
[2018-09-11] MEDS: LACTOBACILLUS RHAMNOSUS GG 1 CAPSULE. PO SCH ×2 (09:30→19:20)
[2018-09-11] MEDS: levETIRAcetam 500 MG TABLET PO SCH ×2 (09:30→19:21)
[2018-09-11] MEDS: amLODIPine BESYLATE 5 MG TABLET PO SCH (09:30)
[2018-09-11] MEDS: ASPIRIN 81 MG TAB.CHEW PO SCH (09:31)
[2018-09-11] MEDS: LISINOPRIL 20 MG TABLET PO SCH (09:31)
[2018-09-11] MEDS: GABAPENTIN 100 MG CAPSULE. PO SCH ×2 (09:32→19:21)
[2018-09-11] MEDS: QUEtiapine 25 MG TABLET. PO SCH ×2 (17:26→19:21)
[2018-09-11] MEDS: ATORVASTATIN CALCIUM 20 MG TABLET PO SCH (19:21)
[2018-09-11 21:00] VITALS: BP 139/83
--- NOTE | 2018-09-12 03:40 | PN ---
DATE: 09/04/2018 SUBJECTIVE: The patient was seen today, met with the staff, chart reviewed. The patient's behavior has improved today. The patient apparently pleasant, able to hold a conversation, but she tends to withdraw to herself most of the time. OBSERVATION: VITAL SIGNS: Temperature 97, blood pressure 137/83, pulse 78, respirations 20, O2 sat 95%. Slept about 7 hours last night. CURRENT MEDICATIONS: The patient's medications reviewed. LABORATORY DATA: Reviewed. The patient is not having any side effects. ASSESSMENT: Major neurocognitive disorder with behavior problems, major depressive disorder with psychotic features. PLAN: Continue with the treatment. BERKLEY KEARNS MD DR: CARLTON/christen JOB#: [id number] / [id number]
[2018-09-12] MEDS: LEVOTHYROXINE 100 MCG TABLET PO SCH (05:26)
[2018-09-12] MEDS: HEPARIN for SUB-Q USE 5,000 UNIT/ML VIAL. SQ SCH ×3 (05:29→21:20)
[2018-09-12 06:03] VITALS: BP 161/83
[2018-09-12] MEDS: ASPIRIN 81 MG TAB.CHEW PO SCH (09:02)
[2018-09-12] MEDS: amLODIPine BESYLATE 5 MG TABLET PO SCH (09:02)
[2018-09-12] MEDS: DULoxetine HCL 60 MG CAPSULE.DR PO SCH (09:02)
[2018-09-12] MEDS: MEMANTINE 10 MG TABLET. PO SCH ×2 (09:03→21:17)
[2018-09-12] MEDS: levETIRAcetam 500 MG TABLET PO SCH ×2 (09:03→21:17)
[2018-09-12] MEDS: LISINOPRIL 20 MG TABLET PO SCH (09:03)
[2018-09-12] MEDS: LACTOBACILLUS RHAMNOSUS GG 1 CAPSULE. PO SCH ×2 (09:03→21:17)
[2018-09-12] MEDS: INSULIN LISPRO 300 UNITS/3 ML INSULN.PEN. SQ SCH ×3 (09:06→18:26)
[2018-09-12] MEDS: CHOLECALCIFEROL (VITAMIN D3) 50,000 UNIT CAPSULE PO SCH (09:06)
[2018-09-12] MEDS: GABAPENTIN 100 MG CAPSULE. PO SCH ×2 (09:06→21:17)
[2018-09-12] MEDS: QUEtiapine 25 MG TABLET. PO SCH ×2 (16:32→21:18)
[2018-09-12 16:40] VITALS: BP_SYST 135; BP_SYST 140; BP_DIAS 80; BP_DIAS 82
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
[2018-09-12] MEDS: ATORVASTATIN CALCIUM 20 MG TABLET PO SCH (21:17)
[2018-09-13] MEDS: LEVOTHYROXINE 100 MCG TABLET PO SCH (06:17)
[2018-09-13] MEDS: HEPARIN for SUB-Q USE 5,000 UNIT/ML VIAL. SQ SCH ×3 (06:18→20:51)
[2018-09-13 06:45] VITALS: BP 134/84
[2018-09-13] MEDS: MEMANTINE 10 MG TABLET. PO SCH ×2 (09:02→20:50)
[2018-09-13] MEDS: ASPIRIN 81 MG TAB.CHEW PO SCH (09:02)
[2018-09-13] MEDS: levETIRAcetam 500 MG TABLET PO SCH ×2 (09:03→20:50)
[2018-09-13] MEDS: DULoxetine HCL 60 MG CAPSULE.DR PO SCH (09:03)
[2018-09-13] MEDS: amLODIPine BESYLATE 5 MG TABLET PO SCH (09:03)
[2018-09-13] MEDS: LACTOBACILLUS RHAMNOSUS GG 1 CAPSULE. PO SCH ×2 (09:03→20:50)
[2018-09-13] MEDS: LISINOPRIL 20 MG TABLET PO SCH (09:03)
[2018-09-13] MEDS: GABAPENTIN 100 MG CAPSULE. PO SCH ×2 (09:05→20:51)
[2018-09-13] MEDS: INSULIN LISPRO 300 UNITS/3 ML INSULN.PEN. SQ SCH ×3 (09:08→17:27)
[2018-09-13] MEDS: ACETAMINOPHEN 325 MG TABLET PO PRN (09:43)
[2018-09-13 16:05] VITALS: BP 134/81
[2018-09-13] MEDS: QUEtiapine 25 MG TABLET. PO SCH ×2 (16:18→20:50)
[2018-09-13] MEDS: ATORVASTATIN CALCIUM 20 MG TABLET PO SCH (20:50)
--- NOTE | 2018-09-13 21:28 | PN ---
DATE: 09/13/2018 SUBJECTIVE: The patient was seen today, met with the staff, chart reviewed and the patient's medications reviewed. The patient continues to show fluctuating symptoms. She is alert, oriented to surroundings and able to hold a reasonable conversation and also periods. She is totally withdrawn, not wanting to react to her environment and also sleeping during the daytime, but overall the patient is not presented with any psychotic behavior. OBSERVATION: VITAL SIGNS: Temperature 98.1, blood pressure 134/81, pulse 78, respirations 18, O2 sat 98%. The patient slept about 7 hours last night. CURRENT MEDICATIONS: The patient's medications reviewed. Also, lab reviewed. The patient is not having any major side effects to the medications. ASSESSMENT: 1. Major neurocognitive disorder with behavior problems. 2. Major depressive disorder, psychotic features. PLAN: To continue with the treatment. BERKLEY KEARNS MD DR: CARLTON/christen JOB#: [id number] / [id number]
[2018-09-14] MEDS: LEVOTHYROXINE 100 MCG TABLET PO SCH (03:02)
[2018-09-14] MEDS: HEPARIN for SUB-Q USE 5,000 UNIT/ML VIAL. SQ SCH ×3 (03:04→19:57)
[2018-09-14 05:13] VITALS: BP 141/82
[2018-09-14] MEDS: levETIRAcetam 500 MG TABLET PO SCH ×2 (08:13→19:54)
[2018-09-14] MEDS: LACTOBACILLUS RHAMNOSUS GG 1 CAPSULE. PO SCH ×2 (08:13→19:55)
[2018-09-14] MEDS: GABAPENTIN 100 MG CAPSULE. PO SCH ×3 (08:13→19:54)
[2018-09-14] MEDS: MEMANTINE 10 MG TABLET. PO SCH ×2 (08:14→19:54)
[2018-09-14] MEDS: LISINOPRIL 20 MG TABLET PO SCH (08:14)
[2018-09-14] MEDS: DULoxetine HCL 60 MG CAPSULE.DR PO SCH (08:14)
[2018-09-14] MEDS: amLODIPine BESYLATE 5 MG TABLET PO SCH (08:14)
[2018-09-14] MEDS: ASPIRIN 81 MG TAB.CHEW PO SCH (08:14)
[2018-09-14] MEDS: INSULIN LISPRO 300 UNITS/3 ML INSULN.PEN. SQ SCH ×3 (08:15→17:14)
[2018-09-14 16:18] VITALS: BP 133/71
[2018-09-14] MEDS: QUEtiapine 25 MG TABLET. PO SCH ×2 (18:22→19:55)
[2018-09-14] MEDS: ATORVASTATIN CALCIUM 20 MG TABLET PO SCH (19:54)
[2018-09-14] MEDS: MAGNESIUM HYDROXIDE 2,400 MG/30 ML ORAL.SUSP. PO PRN (21:03)
[2018-09-15 05:53] VITALS: BP 138/75
[2018-09-15] MEDS: LEVOTHYROXINE 100 MCG TABLET PO SCH (06:04)
[2018-09-15] MEDS: HEPARIN for SUB-Q USE 5,000 UNIT/ML VIAL. SQ SCH ×3 (06:05→20:09)
[2018-09-15 07:20] LABS: BASO % 1 % (0-3); EOS # 0.2 x10^3/uL (0.0-0.7); EOS % 4 % (0-3); HEMOGLOBIN 10.8 g/dL (12.0-15.5); LYMPH # 1.9 x10^3/uL (1.0-4.8); LYMPH % 31 % (24-48); MEAN CORPUSCULAR HEMOGLOBIN 31 pg (25-35); MEAN CORPUSCULAR HGB CONC 34 g/dL (31-37); MEAN CORPUSCULAR VOLUME 93 fL (79-100); MONO # 0.4 x10^3/uL (0.0-1.1); MONO % 7 % (0-9); NEUT # 3.6 x10^3uL (1.8-7.7); NEUT % 58 % (31-73); PLATELET COUNT 198 x10^3/uL (140-400); RED BLOOD COUNT 3.44 x10^6/uL (3.50-5.40); RED CELL DISTRIBUTION WIDTH 14.8 % (11.5-14.5); WHITE BLOOD COUNT 6.2 x10^3/uL (4.0-11.0)
[2018-09-15 07:34] LABS: ALBUMIN/GLOBULIN RATIO 0.7 (1.0-1.7); CALCIUM 9.1 mg/dL (8.5-10.1); CREATININE 0.9 mg/dL (0.6-1.0); POTASSIUM 3.9 mmol/L (3.5-5.1); TOTAL BILIRUBIN 0.3 mg/dL (0.2-1.0); TOTAL PROTEIN 7.1 g/dL (6.4-8.2)
[2018-09-15] MEDS: INSULIN LISPRO 300 UNITS/3 ML INSULN.PEN. SQ SCH ×3 (08:00→17:00)
[2018-09-15] MEDS: LISINOPRIL 20 MG TABLET PO SCH (08:05)
[2018-09-15] MEDS: levETIRAcetam 500 MG TABLET PO SCH ×2 (08:05→20:06)
[2018-09-15] MEDS: ASPIRIN 81 MG TAB.CHEW PO SCH (08:05)
[2018-09-15] MEDS: MEMANTINE 10 MG TABLET. PO SCH ×2 (08:05→20:07)
[2018-09-15] MEDS: LACTOBACILLUS RHAMNOSUS GG 1 CAPSULE. PO SCH ×2 (08:05→20:06)
[2018-09-15] MEDS: GABAPENTIN 100 MG CAPSULE. PO SCH ×3 (08:05→20:07)
[2018-09-15] MEDS: DULoxetine HCL 60 MG CAPSULE.DR PO SCH (08:06)
[2018-09-15] MEDS: amLODIPine BESYLATE 5 MG TABLET PO SCH (08:06)
--- NOTE | 2018-09-15 16:40 | PN ---
DATE: 09/15/2018 SUBJECTIVE: The patient was seen today, met with the staff, chart reviewed. The patient continues to show fluctuating symptoms. Today, she is sleeping most of the day, irritable. Yesterday, apparently she had a normal day. Staff reports the patient has fluctuating symptoms and also she is getting more confused, exhibiting short term memory deficits. OBSERVATION: VITAL SIGNS: Temperature 98.9, blood pressure 138/75, pulse 83, respirations 20, O2 sat 94%. The patient slept about 7 hours last night. CURRENT MEDICATIONS: The patient's medications reviewed. LABORATORY DATA: Reviewed. The patient is not having any side effects. ASSESSMENT: 1. Major neurocognitive disorder with behavior problems. 2. Major depressive disorder with psychotic features. PLAN: Continue with the treatment. BERKLEY KEARNS MD DR: CARLTON/christen JOB#: [id number] / [id number]
[2018-09-15 17:21] VITALS: BP 142/86
[2018-09-15] MEDS: QUEtiapine 25 MG TABLET. PO SCH ×2 (18:10→20:06)
[2018-09-15] MEDS: ATORVASTATIN CALCIUM 20 MG TABLET PO SCH (20:06)
[2018-09-16 06:15] VITALS: BP 101/59
[2018-09-16] MEDS: LEVOTHYROXINE 100 MCG TABLET PO SCH (06:16)
[2018-09-16] MEDS: HEPARIN for SUB-Q USE 5,000 UNIT/ML VIAL. SQ SCH ×3 (06:17→19:18)
[2018-09-16] MEDS: LACTOBACILLUS RHAMNOSUS GG 1 CAPSULE. PO SCH ×2 (08:16→19:16)
[2018-09-16] MEDS: GABAPENTIN 100 MG CAPSULE. PO SCH ×3 (08:16→19:17)
[2018-09-16] MEDS: levETIRAcetam 500 MG TABLET PO SCH ×2 (08:17→19:17)
[2018-09-16] MEDS: DULoxetine HCL 60 MG CAPSULE.DR PO SCH (08:17)
[2018-09-16] MEDS: ASPIRIN 81 MG TAB.CHEW PO SCH (08:17)
[2018-09-16] MEDS: MEMANTINE 10 MG TABLET. PO SCH ×2 (08:17→19:19)
[2018-09-16] MEDS: amLODIPine BESYLATE 5 MG TABLET PO SCH (08:18)
[2018-09-16] MEDS: LISINOPRIL 20 MG TABLET PO SCH (08:18)
[2018-09-16] MEDS: INSULIN LISPRO 300 UNITS/3 ML INSULN.PEN. SQ SCH ×3 (08:20→17:21)
[2018-09-16 16:01] VITALS: BP 128/78
[2018-09-16] MEDS: QUEtiapine 25 MG TABLET. PO SCH ×2 (16:29→19:17)
[2018-09-16] MEDS: ATORVASTATIN CALCIUM 20 MG TABLET PO SCH (19:16)
--- NOTE | 2018-09-16 20:01 | PDOC ---
Exam Note: José Miguel Note: Please also refer to the separate dictated note~for this date of service dictated separately.~Patient seen individually. Discussed the patient with Nursing staff reviewed the chart.~Reviewed interim history and current functioning. Reviewed vital signs,~Labs/ Radiology~and current medications noted below. Continue current treatment with the changes noted in the dictated addendum note Assessment: Vital Signs: Vital Signs Date Time Temp Pulse Resp B/P (MAP) Pulse Ox O2 Delivery O2 Flow Rate FiO2 09/16/18 16:01 98.1 77 20 128/78 (95) 95 09/15/18 05:53 Room Air I&O Intake and Output 09/16/18 07:00 Intake Total 940 ml Balance 940 ml Intake Oral 940 ml # Bowel Movements 2 Labs: Laboratory Tests Test 09/16/18 07:08 09/16/18 11:49 09/16/18 17:08 09/16/18 19:14 Glucose (Fingerstick) 193 mg/dL (70-99) H 195 mg/dL (70-99) H 202 mg/dL (70-99) H 241 mg/dL (70-99) H Current Medications: Meds: Current Medications Acetaminophen (Tylenol) 650 mg PRN Q6HRS PRN PO PAIN / TEMP Last administered on 09/13/18at 09:43; Start 08/08/18 at 20:00 Multi-Ingredient Ointment (Analgesic [place]) 1 frank PRN QID PRN TP MUSCLE PAIN Last administered on 09/04/18at 22:49; Start 08/08/18 at 20:00 Al Hydroxide/Mg Hydroxide (Mylanta Plus Xs) 15 ml PRN AFTMEALHC PRN PO DYSPEPSIA; Start 08/08/18 at 20:00 Magnesium Hydroxide (Milk Of Magnesia) 2,400 mg PRN QHS PRN PO CONSTIPATION Last administered on 09/14/18at 21:03; Start 08/08/18 at 20:00 Memantine (Namenda) 10 mg BID PO Last administered on 09/16/18at 19:19; Start 08/08/18 at 22:00 Quetiapine Fumarate (SEROquel) 25 mg DAILY PO Last administered on 09/05/18at 08 :51; Start 08/09/18 at 09:00; Stop 09/05/18 at 11:58; Status DC Quetiapine Fumarate (SEROquel) 75 mg HS PO Last administered on 09/16/18at 19: 17; Start 08/08/18 at 22:00 Venlafaxine HCl (Effexor) 50 mg TID PO Last administered on 08/10/18at 13:40; Start 08/09/18 at 09:00; Stop 08/10/18 at 17:54; Status DC Acetaminophen (Tylenol) 650 mg PRN Q4HRS PRN PO PAIN / TEMP; Start 08/08/18 at 21:30; Status Cancel Levothyroxine Sodium (Synthroid) 100 mcg DAILY06 PO Last administered on at 06:16; Start 08/09/18 at 06:00 Amlodipine Besylate (Norvasc) 5 mg DAILY PO Last administered on 09/15/18at 08: 06; Start 08/09/18 at 09:00 Aspirin (Children'S Aspirin) 81 mg DAILY PO Last administered on 09/16/18at 08: 17; Start 08/09/18 at 09:00 Lisinopril (Prinivil) 20 mg DAILY PO Last administered on 09/15/18at 08:05; Start 08/09/18 at 09:00 Vitamin D (Vitamin D3) 50,000 unit WEEKLY PO Last administered on 09/12/18at 09 :06; Start 08/15/18 at 09:00 Heparin Sodium (Porcine) (Heparin Sq) 5,000 unit Q8HRS SQ Last administered on 08/27/18at 22:37; Start 08/08/18 at 22:00; Stop 08/27/18 at 23:00; Status DC Levetiracetam (Keppra) 500 mg BID PO Last administered on 09/16/18at 19:17; Start 08/08/18 at 22:00 Atorvastatin Calcium (Lipitor) 20 mg QHS PO Last administered on 09/16/18at 19: 16; Start 08/09/18 at 21:00 Insulin Human Lispro (HumaLOG) 0-5 UNITS TIDWMEALS SQ Last administered on 09/05at 09:13; Start 08/09/18 at 08:00; Stop 09/05/18 at 14:16; Status DC Dextrose 12.5 gm PRN Q15MIN PRN IV SEE COMMENTS; Start 08/09/18 at 05:45; Stop 09/05/18 at 14:16; Status DC Duloxetine HCl (Cymbalta) 30 mg DAILY PO Last administered on 08/12/18at 08:06 ; Start 08/11/18 at 09:00; Stop 08/12/18 at 09:02; Status DC Duloxetine HCl (Cymbalta) 60 mg DAILY PO Last administered on 09/16/18at 08:17 ; Start 08/13/18 at 09:00 Cephalexin HCl (Keflex) 500 mg TID PO Last administered on 08/20/18at 19:28; Start 08/11/18 at 09:00; Stop 08/21/18 at 08:59; Status DC Lactobacillus Rhamnosus (Culturelle) 1 cap BID PO Last administered on at 19:16; Start 08/11/18 at 09:00 Levothyroxine Sodium (Synthroid) 100 mcg 1X ONCE PO Last administered on 08/15at 06:23; Start 08/15/18 at 06:30; Stop 08/15/18 at 06:31; Status DC Olanzapine (ZyPREXA ZYDIS) 10 mg PRN BID PRN PO AGITATION; Start 08/24/18 at 17:45 Olanzapine (ZyPREXA IM) 5 mg PRN BID PRN IM AGITATION Last administered on at 17:53; Start 08/24/18 at 17:45 Cefpodoxime Proxetil (Vantin) 200 mg BID PO Last administered on 08/27/18at 08: 28; Start 08/25/18 at 17:30; Stop 08/27/18 at 17:27; Status DC Gabapentin (Neurontin) 100 mg BID PO Last administered on 09/13/18at 09:05; Start 08/25/18 at 21:00; Stop 09/13/18 at 16:30; Status DC Quetiapine Fumarate (SEROquel) 12.5 mg DAILY16 PO Last administered on at 16:29; Start 08/27/18 at 16:00; Stop 09/16/18 at 16:52; Status DC Heparin Sodium (Porcine) (Heparin Sodium) 5,000 unit Q8HRS SQ Last administered on 09/16/18at 19:18; Start 08/28/18 at 06:00 Ciprofloxacin (Cipro) 500 mg BID PO Last administered on 09/06/18at 08:09; Start 08/27/18 at 21:00; Stop 09/06/18 at 20:59; Status DC Insulin Human Lispro (HumaLOG) 0-9 UNITS TIDWMEALS SQ Last administered on at 17:21; Start 09/05/18 at 17:00 Dextrose 12.5 gm PRN Q15MIN PRN IV SEE COMMENTS; Start 09/05/18 at 14:15 Gabapentin (Neurontin) 200 mg TID PO Last administered on 09/16/18at 19:17; Start 09/13/18 at 21:00 Bupropion HCl (Wellbutrin Xl) 150 mg DAILY PO ; Start 09/17/18 at 09:00 Active Scripts Active Reported Seroquel (Quetiapine Fumarate) 25 Mg Tablet 12.5 Mg PO DAILY16 Olanzapine 10 Mg Tablet 10 Mg PO PRN BID PRN Olanzapine Inj (Olanzapine) 10 Mg Vial 5 Mg IM PRN BID PRN Analgesic [place] (Methyl Salicylate/Menthol) 28 Gm Oint...g. 1 Frank TP PRN QID PRN Milk Of Magnesia (Magnesium Hydroxide) 2,400 Mg/10 Ml Oral.susp 2,400 Mg PO PRN QHS PRN Advanced Antacid Liquid (Mag Hydrox/Al Hydrox/Simeth) 355 Ml Oral.susp 15 Ml PO PRN AFTMEALHC PRN Culturelle (Lactobacillus Rhamnosus Gg) 1 Each Cap.sprink 1 Cap PO BID Humalog (Insulin Lispro) 100 Unit/1 Ml Cartridge 0-5 Unit SQ TIDWMEALS Gabapentin 100 Mg Capsule 100 Mg PO BID Cymbalta (Duloxetine Hcl) 60 Mg Capsule.dr 60 Mg PO DAILY Ciprofloxacin Hcl 500 Mg Tablet 500 Mg PO BID Venlafaxine Hcl Er (Venlafaxine Hcl) 150 Mg Tab.er.24 150 Mg PO DAILYWBKFT Quetiapine Fumarate 25 Mg Tablet 25 Mg PO DAILY Seroquel (Quetiapine Fumarate) 25 Mg Tablet 75 Mg PO QHS Namenda (Memantine Hcl) 10 Mg Tablet 10 Mg PO BID Lovastatin 40 Mg Tablet 80 Mg PO QHS Levothyroxine Sodium 100 Mcg Tablet 100 Mcg PO DAILYAC Keppra (Levetiracetam) 500 Mg Tablet 500 Mg PO BID Heparin 5,000 Unit/5 ml-Ns (Heparin Sod,Porcine/0.9 % NaCl) 5,000 Unit/5 Ml Syringe 5,000 Unit IM Q8HRS Vitamin D2 (Ergocalciferol (Vitamin D2)) 50,000 Unit Capsule 50,000 Unit PO WEEKLY Benazepril Hcl 20 Mg Tablet 20 Mg PO DAILY Aspirin 81 Mg Tab.chew 81 Mg PO DAILY Amlodipine Besylate 5 Mg Tablet 5 Mg PO DAILY Tylenol (Acetaminophen) 325 Mg Tablet 650 Mg PO PRN Q4HRS PRN I have reviewed the current psychotropics carefully including drug interactions. Risk benefit ratio favors no change other than as noted in my dictated progress note. Diagnosis: Problems: (1) Anxiety disorder (2) Mild cognitive disorder (3) Major depressive disorder, recurrent episode (4) Impulse control disorder ANTONIA BAILEY MD Sep 16, 2018 20:01
[2018-09-17] MEDS: LEVOTHYROXINE 100 MCG TABLET PO SCH (06:12)
[2018-09-17] MEDS: HEPARIN for SUB-Q USE 5,000 UNIT/ML VIAL. SQ SCH ×3 (06:15→19:13)
[2018-09-17 06:43] VITALS: BP 131/77
[2018-09-17] MEDS: LISINOPRIL 20 MG TABLET PO SCH (09:14)
[2018-09-17] MEDS: levETIRAcetam 500 MG TABLET PO SCH ×2 (09:14→19:10)
[2018-09-17] MEDS: LACTOBACILLUS RHAMNOSUS GG 1 CAPSULE. PO SCH ×2 (09:14→19:09)
[2018-09-17] MEDS: DULoxetine HCL 60 MG CAPSULE.DR PO SCH (09:14)
[2018-09-17] MEDS: ASPIRIN 81 MG TAB.CHEW PO SCH (09:14)
[2018-09-17] MEDS: amLODIPine BESYLATE 5 MG TABLET PO SCH (09:15)
[2018-09-17] MEDS: MEMANTINE 10 MG TABLET. PO SCH ×2 (09:15→19:10)
[2018-09-17] MEDS: buPROPion XL 150 MG TAB.ER.24H PO SCH (09:16)
[2018-09-17] MEDS: GABAPENTIN 100 MG CAPSULE. PO SCH ×3 (09:16→19:09)
[2018-09-17] MEDS: INSULIN LISPRO 300 UNITS/3 ML INSULN.PEN. SQ SCH ×3 (09:18→17:10)
[2018-09-17 16:35] VITALS: BP 150/77
[2018-09-17] MEDS: QUEtiapine 25 MG TABLET. PO SCH (19:10)
[2018-09-17] MEDS: ATORVASTATIN CALCIUM 20 MG TABLET PO SCH (19:10)
--- NOTE | 2018-09-17 19:54 | PDOC ---
Exam Note: José Miguel Note: Please also refer to the separate dictated note~for this date of service dictated separately.~Patient seen individually. Discussed the patient with Nursing staff reviewed the chart.~Reviewed interim history and current functioning. Reviewed vital signs,~Labs/ Radiology~and current medications noted below. Continue current treatment with the changes noted in the dictated addendum note Assessment: Vital Signs: Vital Signs Date Time Temp Pulse Resp B/P (MAP) Pulse Ox O2 Delivery O2 Flow Rate FiO2 09/17/18 16:35 97.8 76 20 150/77 (101) 97 09/15/18 05:53 Room Air I&O Intake and Output 09/17/18 07:00 Intake Total 840 ml Balance 840 ml Intake Oral 840 ml Labs: Laboratory Tests Test 09/17/18 07:28 09/17/18 11:55 09/17/18 16:33 09/17/18 19:25 Glucose (Fingerstick) 192 mg/dL (70-99) H 266 mg/dL (70-99) H 165 mg/dL (70-99) H 233 mg/dL (70-99) H Current Medications: Meds: Current Medications Acetaminophen (Tylenol) 650 mg PRN Q6HRS PRN PO PAIN / TEMP Last administered on 09/13/18at 09:43; Start 08/08/18 at 20:00 Multi-Ingredient Ointment (Analgesic [place]) 1 frank PRN QID PRN TP MUSCLE PAIN Last administered on 09/04/18at 22:49; Start 08/08/18 at 20:00 Al Hydroxide/Mg Hydroxide (Mylanta Plus Xs) 15 ml PRN AFTMEALHC PRN PO DYSPEPSIA; Start 08/08/18 at 20:00 Magnesium Hydroxide (Milk Of Magnesia) 2,400 mg PRN QHS PRN PO CONSTIPATION Last administered on 09/14/18at 21:03; Start 08/08/18 at 20:00 Memantine (Namenda) 10 mg BID PO Last administered on 09/17/18at 19:10; Start 08/08/18 at 22:00 Quetiapine Fumarate (SEROquel) 25 mg DAILY PO Last administered on 09/05/18at 08 :51; Start 08/09/18 at 09:00; Stop 09/05/18 at 11:58; Status DC Quetiapine Fumarate (SEROquel) 75 mg HS PO Last administered on 09/17/18at 19: 10; Start 08/08/18 at 22:00 Venlafaxine HCl (Effexor) 50 mg TID PO Last administered on 08/10/18at 13:40; Start 08/09/18 at 09:00; Stop 08/10/18 at 17:54; Status DC Acetaminophen (Tylenol) 650 mg PRN Q4HRS PRN PO PAIN / TEMP; Start 08/08/18 at 21:30; Status Cancel Levothyroxine Sodium (Synthroid) 100 mcg DAILY06 PO Last administered on at 06:12; Start 08/09/18 at 06:00 Amlodipine Besylate (Norvasc) 5 mg DAILY PO Last administered on 09/17/18at 09: 15; Start 08/09/18 at 09:00 Aspirin (Children'S Aspirin) 81 mg DAILY PO Last administered on 09/17/18at 09: 14; Start 08/09/18 at 09:00 Lisinopril (Prinivil) 20 mg DAILY PO Last administered on 09/17/18at 09:14; Start 08/09/18 at 09:00 Vitamin D (Vitamin D3) 50,000 unit WEEKLY PO Last administered on 09/12/18at 09 :06; Start 08/15/18 at 09:00 Heparin Sodium (Porcine) (Heparin Sq) 5,000 unit Q8HRS SQ Last administered on 08/27/18at 22:37; Start 08/08/18 at 22:00; Stop 08/27/18 at 23:00; Status DC Levetiracetam (Keppra) 500 mg BID PO Last administered on 09/17/18at 19:10; Start 08/08/18 at 22:00 Atorvastatin Calcium (Lipitor) 20 mg QHS PO Last administered on 09/17/18at 19: 10; Start 08/09/18 at 21:00 Insulin Human Lispro (HumaLOG) 0-5 UNITS TIDWMEALS SQ Last administered on 09/05at 09:13; Start 08/09/18 at 08:00; Stop 09/05/18 at 14:16; Status DC Dextrose 12.5 gm PRN Q15MIN PRN IV SEE COMMENTS; Start 08/09/18 at 05:45; Stop 09/05/18 at 14:16; Status DC Duloxetine HCl (Cymbalta) 30 mg DAILY PO Last administered on 08/12/18at 08:06 ; Start 08/11/18 at 09:00; Stop 08/12/18 at 09:02; Status DC Duloxetine HCl (Cymbalta) 60 mg DAILY PO Last administered on 09/17/18at 09:14 ; Start 08/13/18 at 09:00 Cephalexin HCl (Keflex) 500 mg TID PO Last administered on 08/20/18at 19:28; Start 08/11/18 at 09:00; Stop 08/21/18 at 08:59; Status DC Lactobacillus Rhamnosus (Culturelle) 1 cap BID PO Last administered on at 19:09; Start 08/11/18 at 09:00 Levothyroxine Sodium (Synthroid) 100 mcg 1X ONCE PO Last administered on 08/15at 06:23; Start 08/15/18 at 06:30; Stop 08/15/18 at 06:31; Status DC Olanzapine (ZyPREXA ZYDIS) 10 mg PRN BID PRN PO AGITATION; Start 08/24/18 at 17:45 Olanzapine (ZyPREXA IM) 5 mg PRN BID PRN IM AGITATION Last administered on at 17:53; Start 08/24/18 at 17:45 Cefpodoxime Proxetil (Vantin) 200 mg BID PO Last administered on 08/27/18at 08: 28; Start 08/25/18 at 17:30; Stop 08/27/18 at 17:27; Status DC Gabapentin (Neurontin) 100 mg BID PO Last administered on 09/13/18at 09:05; Start 08/25/18 at 21:00; Stop 09/13/18 at 16:30; Status DC Quetiapine Fumarate (SEROquel) 12.5 mg DAILY16 PO Last administered on at 16:29; Start 08/27/18 at 16:00; Stop 09/16/18 at 16:52; Status DC Heparin Sodium (Porcine) (Heparin Sodium) 5,000 unit Q8HRS SQ Last administered on 09/17/18at 19:13; Start 08/28/18 at 06:00 Ciprofloxacin (Cipro) 500 mg BID PO Last administered on 09/06/18at 08:09; Start 08/27/18 at 21:00; Stop 09/06/18 at 20:59; Status DC Insulin Human Lispro (HumaLOG) 0-9 UNITS TIDWMEALS SQ Last administered on at 17:10; Start 09/05/18 at 17:00 Dextrose 12.5 gm PRN Q15MIN PRN IV SEE COMMENTS; Start 09/05/18 at 14:15 Gabapentin (Neurontin) 200 mg TID PO Last administered on 09/17/18at 19:09; Start 09/13/18 at 21:00 Bupropion HCl (Wellbutrin Xl) 150 mg DAILY PO Last administered on 09/17/18at 09:16; Start 09/17/18 at 09:00 Active Scripts Active Reported Seroquel (Quetiapine Fumarate) 25 Mg Tablet 12.5 Mg PO DAILY16 Olanzapine 10 Mg Tablet 10 Mg PO PRN BID PRN Olanzapine Inj (Olanzapine) 10 Mg Vial 5 Mg IM PRN BID PRN Analgesic [place] (Methyl Salicylate/Menthol) 28 Gm Oint...g. 1 Frank TP PRN QID PRN Milk Of Magnesia (Magnesium Hydroxide) 2,400 Mg/10 Ml Oral.susp 2,400 Mg PO PRN QHS PRN Advanced Antacid Liquid (Mag Hydrox/Al Hydrox/Simeth) 355 Ml Oral.susp 15 Ml PO PRN AFTMEALHC PRN Culturelle (Lactobacillus Rhamnosus Gg) 1 Each Cap.sprink 1 Cap PO BID Humalog (Insulin Lispro) 100 Unit/1 Ml Cartridge 0-5 Unit SQ TIDWMEALS Gabapentin 100 Mg Capsule 100 Mg PO BID Cymbalta (Duloxetine Hcl) 60 Mg Capsule.dr 60 Mg PO DAILY Ciprofloxacin Hcl 500 Mg Tablet 500 Mg PO BID Venlafaxine Hcl Er (Venlafaxine Hcl) 150 Mg Tab.er.24 150 Mg PO DAILYWBKFT Quetiapine Fumarate 25 Mg Tablet 25 Mg PO DAILY Seroquel (Quetiapine Fumarate) 25 Mg Tablet 75 Mg PO QHS Namenda (Memantine Hcl) 10 Mg Tablet 10 Mg PO BID Lovastatin 40 Mg Tablet 80 Mg PO QHS Levothyroxine Sodium 100 Mcg Tablet 100 Mcg PO DAILYAC Keppra (Levetiracetam) 500 Mg Tablet 500 Mg PO BID Heparin 5,000 Unit/5 ml-Ns (Heparin Sod,Porcine/0.9 % NaCl) 5,000 Unit/5 Ml Syringe 5,000 Unit IM Q8HRS Vitamin D2 (Ergocalciferol (Vitamin D2)) 50,000 Unit Capsule 50,000 Unit PO WEEKLY Benazepril Hcl 20 Mg Tablet 20 Mg PO DAILY Aspirin 81 Mg Tab.chew 81 Mg PO DAILY Amlodipine Besylate 5 Mg Tablet 5 Mg PO DAILY Tylenol (Acetaminophen) 325 Mg Tablet 650 Mg PO PRN Q4HRS PRN I have reviewed the current psychotropics carefully including drug interactions. Risk benefit ratio favors no change other than as noted in my dictated progress note. Diagnosis: Problems: (1) Anxiety disorder (2) Mild cognitive disorder (3) Major depressive disorder, recurrent episode (4) Impulse control disorder ANTONIA BAILEY MD Sep 17, 2018 19:54
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
[2018-09-18 05:59] VITALS: BP 131/73
[2018-09-18] MEDS: HEPARIN for SUB-Q USE 5,000 UNIT/ML VIAL. SQ SCH ×3 (06:09→19:35)
[2018-09-18] MEDS: LEVOTHYROXINE 100 MCG TABLET PO SCH (06:09)
[2018-09-18] MEDS: amLODIPine BESYLATE 5 MG TABLET PO SCH (08:18)
[2018-09-18] MEDS: DULoxetine HCL 60 MG CAPSULE.DR PO SCH (08:18)
[2018-09-18] MEDS: buPROPion XL 150 MG TAB.ER.24H PO SCH (08:19)
[2018-09-18] MEDS: MEMANTINE 10 MG TABLET. PO SCH ×2 (08:19→19:35)
[2018-09-18] MEDS: LISINOPRIL 20 MG TABLET PO SCH (08:19)
[2018-09-18] MEDS: levETIRAcetam 500 MG TABLET PO SCH ×2 (08:19→19:34)
[2018-09-18] MEDS: ASPIRIN 81 MG TAB.CHEW PO SCH (08:19)
[2018-09-18] MEDS: GABAPENTIN 100 MG CAPSULE. PO SCH ×3 (08:22→19:36)
[2018-09-18] MEDS: LACTOBACILLUS RHAMNOSUS GG 1 CAPSULE. PO SCH ×2 (08:22→19:34)
[2018-09-18] MEDS: INSULIN LISPRO 300 UNITS/3 ML INSULN.PEN. SQ SCH ×3 (08:23→17:41)
[2018-09-18 16:09] VITALS: BP 138/73
[2018-09-18] MEDS: ATORVASTATIN CALCIUM 20 MG TABLET PO SCH (19:35)
[2018-09-18] MEDS: QUEtiapine 25 MG TABLET. PO SCH (19:35)
[2018-09-18] MEDS: MAGNESIUM HYDROXIDE 2,400 MG/30 ML ORAL.SUSP. PO PRN (19:52)
--- NOTE | 2018-09-18 20:19 | PDOC ---
Exam Note: José Miguel Note: Please also refer to the separate dictated note~for this date of service dictated separately.~Patient seen individually. Discussed the patient with Nursing staff reviewed the chart.~Reviewed interim history and current functioning. Reviewed vital signs,~Labs/ Radiology~and current medications noted below. Continue current treatment with the changes noted in the dictated addendum note Assessment: Vital Signs: Vital Signs Date Time Temp Pulse Resp B/P (MAP) Pulse Ox O2 Delivery O2 Flow Rate FiO2 09/18/18 16:09 97.8 77 16 138/73 (94) 97 09/15/18 05:53 Room Air I&O Intake and Output 09/18/18 07:00 Intake Total 1180 ml Balance 1180 ml Intake Oral 1180 ml Labs: Laboratory Tests Test 09/18/18 07:28 09/18/18 11:32 09/18/18 17:20 09/18/18 19:15 Glucose (Fingerstick) 191 mg/dL (70-99) H 197 mg/dL (70-99) H 206 mg/dL (70-99) H 280 mg/dL (70-99) H Current Medications: Meds: Current Medications Acetaminophen (Tylenol) 650 mg PRN Q6HRS PRN PO PAIN / TEMP Last administered on 09/13/18at 09:43; Start 08/08/18 at 20:00 Multi-Ingredient Ointment (Analgesic [place]) 1 frank PRN QID PRN TP MUSCLE PAIN Last administered on 09/04/18at 22:49; Start 08/08/18 at 20:00 Al Hydroxide/Mg Hydroxide (Mylanta Plus Xs) 15 ml PRN AFTMEALHC PRN PO DYSPEPSIA; Start 08/08/18 at 20:00 Magnesium Hydroxide (Milk Of Magnesia) 2,400 mg PRN QHS PRN PO CONSTIPATION Last administered on 09/18/18at 19:52; Start 08/08/18 at 20:00 Memantine (Namenda) 10 mg BID PO Last administered on 09/18/18at 19:35; Start 08/08/18 at 22:00 Quetiapine Fumarate (SEROquel) 25 mg DAILY PO Last administered on 09/05/18at 08 :51; Start 08/09/18 at 09:00; Stop 09/05/18 at 11:58; Status DC Quetiapine Fumarate (SEROquel) 75 mg HS PO Last administered on 09/18/18at 19: 35; Start 08/08/18 at 22:00 Venlafaxine HCl (Effexor) 50 mg TID PO Last administered on 08/10/18at 13:40; Start 08/09/18 at 09:00; Stop 08/10/18 at 17:54; Status DC Acetaminophen (Tylenol) 650 mg PRN Q4HRS PRN PO PAIN / TEMP; Start 08/08/18 at 21:30; Status Cancel Levothyroxine Sodium (Synthroid) 100 mcg DAILY06 PO Last administered on at 06:09; Start 08/09/18 at 06:00 Amlodipine Besylate (Norvasc) 5 mg DAILY PO Last administered on 09/18/18at 08: 18; Start 08/09/18 at 09:00 Aspirin (Children'S Aspirin) 81 mg DAILY PO Last administered on 09/18/18at 08: 19; Start 08/09/18 at 09:00 Lisinopril (Prinivil) 20 mg DAILY PO Last administered on 09/18/18at 08:19; Start 08/09/18 at 09:00 Vitamin D (Vitamin D3) 50,000 unit WEEKLY PO Last administered on 09/12/18at 09 :06; Start 08/15/18 at 09:00 Heparin Sodium (Porcine) (Heparin Sq) 5,000 unit Q8HRS SQ Last administered on 08/27/18at 22:37; Start 08/08/18 at 22:00; Stop 08/27/18 at 23:00; Status DC Levetiracetam (Keppra) 500 mg BID PO Last administered on 09/18/18at 19:34; Start 08/08/18 at 22:00 Atorvastatin Calcium (Lipitor) 20 mg QHS PO Last administered on 09/18/18at 19: 35; Start 08/09/18 at 21:00 Insulin Human Lispro (HumaLOG) 0-5 UNITS TIDWMEALS SQ Last administered on 09/05at 09:13; Start 08/09/18 at 08:00; Stop 09/05/18 at 14:16; Status DC Dextrose 12.5 gm PRN Q15MIN PRN IV SEE COMMENTS; Start 08/09/18 at 05:45; Stop 09/05/18 at 14:16; Status DC Duloxetine HCl (Cymbalta) 30 mg DAILY PO Last administered on 08/12/18at 08:06 ; Start 08/11/18 at 09:00; Stop 08/12/18 at 09:02; Status DC Duloxetine HCl (Cymbalta) 60 mg DAILY PO Last administered on 09/18/18at 08:18 ; Start 08/13/18 at 09:00 Cephalexin HCl (Keflex) 500 mg TID PO Last administered on 08/20/18at 19:28; Start 08/11/18 at 09:00; Stop 08/21/18 at 08:59; Status DC Lactobacillus Rhamnosus (Culturelle) 1 cap BID PO Last administered on at 19:34; Start 08/11/18 at 09:00 Levothyroxine Sodium (Synthroid) 100 mcg 1X ONCE PO Last administered on 08/15at 06:23; Start 08/15/18 at 06:30; Stop 08/15/18 at 06:31; Status DC Olanzapine (ZyPREXA ZYDIS) 10 mg PRN BID PRN PO AGITATION; Start 08/24/18 at 17:45 Olanzapine (ZyPREXA IM) 5 mg PRN BID PRN IM AGITATION Last administered on at 17:53; Start 08/24/18 at 17:45 Cefpodoxime Proxetil (Vantin) 200 mg BID PO Last administered on 08/27/18at 08: 28; Start 08/25/18 at 17:30; Stop 08/27/18 at 17:27; Status DC Gabapentin (Neurontin) 100 mg BID PO Last administered on 09/13/18at 09:05; Start 08/25/18 at 21:00; Stop 09/13/18 at 16:30; Status DC Quetiapine Fumarate (SEROquel) 12.5 mg DAILY16 PO Last administered on at 16:29; Start 08/27/18 at 16:00; Stop 09/16/18 at 16:52; Status DC Heparin Sodium (Porcine) (Heparin Sodium) 5,000 unit Q8HRS SQ Last administered on 09/18/18at 19:35; Start 08/28/18 at 06:00 Ciprofloxacin (Cipro) 500 mg BID PO Last administered on 09/06/18at 08:09; Start 08/27/18 at 21:00; Stop 09/06/18 at 20:59; Status DC Insulin Human Lispro (HumaLOG) 0-9 UNITS TIDWMEALS SQ Last administered on at 17:41; Start 09/05/18 at 17:00 Dextrose 12.5 gm PRN Q15MIN PRN IV SEE COMMENTS; Start 09/05/18 at 14:15 Gabapentin (Neurontin) 200 mg TID PO Last administered on 09/18/18at 19:36; Start 09/13/18 at 21:00 Bupropion HCl (Wellbutrin Xl) 150 mg DAILY PO Last administered on 09/18/18at 08:19; Start 09/17/18 at 09:00 Active Scripts Active Reported Seroquel (Quetiapine Fumarate) 25 Mg Tablet 12.5 Mg PO DAILY16 Olanzapine 10 Mg Tablet 10 Mg PO PRN BID PRN Olanzapine Inj (Olanzapine) 10 Mg Vial 5 Mg IM PRN BID PRN Analgesic [place] (Methyl Salicylate/Menthol) 28 Gm Oint...g. 1 Frank TP PRN QID PRN Milk Of Magnesia (Magnesium Hydroxide) 2,400 Mg/10 Ml Oral.susp 2,400 Mg PO PRN QHS PRN Advanced Antacid Liquid (Mag Hydrox/Al Hydrox/Simeth) 355 Ml Oral.susp 15 Ml PO PRN AFTMEALHC PRN Culturelle (Lactobacillus Rhamnosus Gg) 1 Each Cap.sprink 1 Cap PO BID Humalog (Insulin Lispro) 100 Unit/1 Ml Cartridge 0-5 Unit SQ TIDWMEALS Gabapentin 100 Mg Capsule 100 Mg PO BID Cymbalta (Duloxetine Hcl) 60 Mg Capsule.dr 60 Mg PO DAILY Ciprofloxacin Hcl 500 Mg Tablet 500 Mg PO BID Venlafaxine Hcl Er (Venlafaxine Hcl) 150 Mg Tab.er.24 150 Mg PO DAILYWBKFT Quetiapine Fumarate 25 Mg Tablet 25 Mg PO DAILY Seroquel (Quetiapine Fumarate) 25 Mg Tablet 75 Mg PO QHS Namenda (Memantine Hcl) 10 Mg Tablet 10 Mg PO BID Lovastatin 40 Mg Tablet 80 Mg PO QHS Levothyroxine Sodium 100 Mcg Tablet 100 Mcg PO DAILYAC Keppra (Levetiracetam) 500 Mg Tablet 500 Mg PO BID Heparin 5,000 Unit/5 ml-Ns (Heparin Sod,Porcine/0.9 % NaCl) 5,000 Unit/5 Ml Syringe 5,000 Unit IM Q8HRS Vitamin D2 (Ergocalciferol (Vitamin D2)) 50,000 Unit Capsule 50,000 Unit PO WEEKLY Benazepril Hcl 20 Mg Tablet 20 Mg PO DAILY Aspirin 81 Mg Tab.chew 81 Mg PO DAILY Amlodipine Besylate 5 Mg Tablet 5 Mg PO DAILY Tylenol (Acetaminophen) 325 Mg Tablet 650 Mg PO PRN Q4HRS PRN I have reviewed the current psychotropics carefully including drug interactions. Risk benefit ratio favors no change other than as noted in my dictated progress note. Diagnosis: Problems: (1) Anxiety disorder (2) Mild cognitive disorder (3) Major depressive disorder, recurrent episode (4) Impulse control disorder ANTONIA BAILEY MD Sep 18, 2018 20:19
--- NOTE | 2018-09-18 21:45 | PN ---
DATE: 09/17/2018 PSYCHIATRIC PROGRESS NOTE This late entry 09/17/2018 covers elements not covered in my initial note. SUBJECTIVE: I met with the patient at some length individually in the evening. The patient slept 7-1/2 hours previous night. She has been more awake, alert and interactive during the day. She complains of some discomfort in the heel area less tearful. Her [id number] visited her and she is pleased with this after Dixie came. REVIEW OF SYSTEMS: Ambulation impaired, in wheelchair. No CV, , pulmonary, eye, ENT system symptoms on review. MENTAL STATUS EXAM: Oriented to herself and situation. Speech, moderate latency, often responses monosyllabic. Abstraction fair, computation impaired, language function intact. Attention span short. She is reasonably oriented, less depressed. LABORATORY DATA: Reviewed. IMPRESSION: Major depressive disorder with psychotic features in partial remission; cognitive disorder, unspecified. PLAN: No change from initial note for now. ANTONIA BAILEY MD DR: RAYMON/christen JOB#: [id number] / [id number]
[2018-09-19 05:44] VITALS: BP 149/73
[2018-09-19] MEDS: LEVOTHYROXINE 100 MCG TABLET PO SCH (05:48)
[2018-09-19] MEDS: HEPARIN for SUB-Q USE 5,000 UNIT/ML VIAL. SQ SCH ×3 (05:58→20:53)
[2018-09-19] MEDS: DULoxetine HCL 60 MG CAPSULE.DR PO SCH (07:54)
[2018-09-19] MEDS: MEMANTINE 10 MG TABLET. PO SCH ×2 (07:54→20:52)
[2018-09-19] MEDS: LISINOPRIL 20 MG TABLET PO SCH (07:54)
[2018-09-19] MEDS: levETIRAcetam 500 MG TABLET PO SCH ×2 (07:54→20:52)
[2018-09-19] MEDS: ASPIRIN 81 MG TAB.CHEW PO SCH (07:54)
[2018-09-19] MEDS: amLODIPine BESYLATE 5 MG TABLET PO SCH (07:54)
[2018-09-19] MEDS: LACTOBACILLUS RHAMNOSUS GG 1 CAPSULE. PO SCH ×2 (07:57→20:52)
[2018-09-19] MEDS: buPROPion XL 150 MG TAB.ER.24H PO SCH (07:57)
[2018-09-19] MEDS: CHOLECALCIFEROL (VITAMIN D3) 50,000 UNIT CAPSULE PO SCH (07:57)
[2018-09-19] MEDS: GABAPENTIN 100 MG CAPSULE. PO SCH ×3 (07:58→20:52)
[2018-09-19] MEDS: INSULIN LISPRO 300 UNITS/3 ML INSULN.PEN. SQ SCH ×3 (07:59→17:42)
[2018-09-19 15:49] VITALS: BP 144/84
[2018-09-19] MEDS: QUEtiapine 25 MG TABLET. PO SCH (20:52)
[2018-09-19] MEDS: ATORVASTATIN CALCIUM 20 MG TABLET PO SCH (20:52)
--- NOTE | 2018-09-19 23:13 | PDOC ---
Exam Note: José Miguel Note: Please also refer to the separate dictated note~for this date of service dictated separately.~Patient seen individually. Discussed the patient with Nursing staff reviewed the chart.~Reviewed interim history and current functioning. Reviewed vital signs,~Labs/ Radiology~and current medications noted below. Continue current treatment with the changes noted in the dictated addendum note Assessment: Vital Signs: Vital Signs Date Time Temp Pulse Resp B/P (MAP) Pulse Ox O2 Delivery O2 Flow Rate FiO2 09/19/18 15:49 98.1 80 18 144/84 (104) 96 Room Air I&O Intake and Output 09/19/18 07:01 Intake Total 960 ml Balance 960 ml Intake Oral 960 ml # Bowel Movements 1 Labs: Laboratory Tests Test 09/19/18 07:21 09/19/18 11:24 09/19/18 16:54 09/19/18 19:41 Glucose (Fingerstick) 214 mg/dL (70-99) H 227 mg/dL (70-99) H 199 mg/dL (70-99) H 272 mg/dL (70-99) H Current Medications: Meds: Current Medications Acetaminophen (Tylenol) 650 mg PRN Q6HRS PRN PO PAIN / TEMP Last administered on 09/13/18at 09:43; Start 08/08/18 at 20:00 Multi-Ingredient Ointment (Analgesic [place]) 1 frank PRN QID PRN TP MUSCLE PAIN Last administered on 09/04/18at 22:49; Start 08/08/18 at 20:00 Al Hydroxide/Mg Hydroxide (Mylanta Plus Xs) 15 ml PRN AFTMEALHC PRN PO DYSPEPSIA; Start 08/08/18 at 20:00 Magnesium Hydroxide (Milk Of Magnesia) 2,400 mg PRN QHS PRN PO CONSTIPATION Last administered on 09/18/18at 19:52; Start 08/08/18 at 20:00 Memantine (Namenda) 10 mg BID PO Last administered on 09/19/18at 20:52; Start 08/08/18 at 22:00 Quetiapine Fumarate (SEROquel) 25 mg DAILY PO Last administered on 09/05/18at 08 :51; Start 08/09/18 at 09:00; Stop 09/05/18 at 11:58; Status DC Quetiapine Fumarate (SEROquel) 75 mg HS PO Last administered on 09/19/18at 20: 52; Start 08/08/18 at 22:00 Venlafaxine HCl (Effexor) 50 mg TID PO Last administered on 08/10/18at 13:40; Start 08/09/18 at 09:00; Stop 08/10/18 at 17:54; Status DC Acetaminophen (Tylenol) 650 mg PRN Q4HRS PRN PO PAIN / TEMP; Start 08/08/18 at 21:30; Status Cancel Levothyroxine Sodium (Synthroid) 100 mcg DAILY06 PO Last administered on at 05:48; Start 08/09/18 at 06:00 Amlodipine Besylate (Norvasc) 5 mg DAILY PO Last administered on 09/19/18at 07: 54; Start 08/09/18 at 09:00 Aspirin (Children'S Aspirin) 81 mg DAILY PO Last administered on 09/19/18at 07: 54; Start 08/09/18 at 09:00 Lisinopril (Prinivil) 20 mg DAILY PO Last administered on 09/19/18at 07:54; Start 08/09/18 at 09:00 Vitamin D (Vitamin D3) 50,000 unit WEEKLY PO Last administered on 09/19/18at 07 :57; Start 08/15/18 at 09:00 Heparin Sodium (Porcine) (Heparin Sq) 5,000 unit Q8HRS SQ Last administered on 08/27/18at 22:37; Start 08/08/18 at 22:00; Stop 08/27/18 at 23:00; Status DC Levetiracetam (Keppra) 500 mg BID PO Last administered on 09/19/18at 20:52; Start 08/08/18 at 22:00 Atorvastatin Calcium (Lipitor) 20 mg QHS PO Last administered on 09/19/18at 20: 52; Start 08/09/18 at 21:00 Insulin Human Lispro (HumaLOG) 0-5 UNITS TIDWMEALS SQ Last administered on 09/05at 09:13; Start 08/09/18 at 08:00; Stop 09/05/18 at 14:16; Status DC Dextrose 12.5 gm PRN Q15MIN PRN IV SEE COMMENTS; Start 08/09/18 at 05:45; Stop 09/05/18 at 14:16; Status DC Duloxetine HCl (Cymbalta) 30 mg DAILY PO Last administered on 08/12/18at 08:06 ; Start 08/11/18 at 09:00; Stop 08/12/18 at 09:02; Status DC Duloxetine HCl (Cymbalta) 60 mg DAILY PO Last administered on 09/19/18at 07:54 ; Start 08/13/18 at 09:00 Cephalexin HCl (Keflex) 500 mg TID PO Last administered on 08/20/18at 19:28; Start 08/11/18 at 09:00; Stop 08/21/18 at 08:59; Status DC Lactobacillus Rhamnosus (Culturelle) 1 cap BID PO Last administered on at 20:52; Start 08/11/18 at 09:00 Levothyroxine Sodium (Synthroid) 100 mcg 1X ONCE PO Last administered on 08/15at 06:23; Start 08/15/18 at 06:30; Stop 08/15/18 at 06:31; Status DC Olanzapine (ZyPREXA ZYDIS) 10 mg PRN BID PRN PO AGITATION; Start 08/24/18 at 17:45 Olanzapine (ZyPREXA IM) 5 mg PRN BID PRN IM AGITATION Last administered on at 17:53; Start 08/24/18 at 17:45 Cefpodoxime Proxetil (Vantin) 200 mg BID PO Last administered on 08/27/18at 08: 28; Start 08/25/18 at 17:30; Stop 08/27/18 at 17:27; Status DC Gabapentin (Neurontin) 100 mg BID PO Last administered on 09/13/18at 09:05; Start 08/25/18 at 21:00; Stop 09/13/18 at 16:30; Status DC Quetiapine Fumarate (SEROquel) 12.5 mg DAILY16 PO Last administered on at 16:29; Start 08/27/18 at 16:00; Stop 09/16/18 at 16:52; Status DC Heparin Sodium (Porcine) (Heparin Sodium) 5,000 unit Q8HRS SQ Last administered on 09/19/18at 20:53; Start 08/28/18 at 06:00 Ciprofloxacin (Cipro) 500 mg BID PO Last administered on 09/06/18at 08:09; Start 08/27/18 at 21:00; Stop 09/06/18 at 20:59; Status DC Insulin Human Lispro (HumaLOG) 0-9 UNITS TIDWMEALS SQ Last administered on at 17:42; Start 09/05/18 at 17:00 Dextrose 12.5 gm PRN Q15MIN PRN IV SEE COMMENTS; Start 09/05/18 at 14:15 Gabapentin (Neurontin) 200 mg TID PO Last administered on 09/19/18at 20:52; Start 09/13/18 at 21:00 Bupropion HCl (Wellbutrin Xl) 150 mg DAILY PO Last administered on 09/19/18at 07:57; Start 09/17/18 at 09:00 Insulin Glargine (Lantus) 15 units QHS SQ ; Start 09/19/18 at 21:00 Active Scripts Active Reported Seroquel (Quetiapine Fumarate) 25 Mg Tablet 12.5 Mg PO DAILY16 Olanzapine 10 Mg Tablet 10 Mg PO PRN BID PRN Olanzapine Inj (Olanzapine) 10 Mg Vial 5 Mg IM PRN BID PRN Analgesic [place] (Methyl Salicylate/Menthol) 28 Gm Oint...g. 1 Frank TP PRN QID PRN Milk Of Magnesia (Magnesium Hydroxide) 2,400 Mg/10 Ml Oral.susp 2,400 Mg PO PRN QHS PRN Advanced Antacid Liquid (Mag Hydrox/Al Hydrox/Simeth) 355 Ml Oral.susp 15 Ml PO PRN AFTMEALHC PRN Culturelle (Lactobacillus Rhamnosus Gg) 1 Each Cap.sprink 1 Cap PO BID Humalog (Insulin Lispro) 100 Unit/1 Ml Cartridge 0-5 Unit SQ TIDWMEALS Gabapentin 100 Mg Capsule 100 Mg PO BID Cymbalta (Duloxetine Hcl) 60 Mg Capsule.dr 60 Mg PO DAILY Ciprofloxacin Hcl 500 Mg Tablet 500 Mg PO BID Venlafaxine Hcl Er (Venlafaxine Hcl) 150 Mg Tab.er.24 150 Mg PO DAILYWBKFT Quetiapine Fumarate 25 Mg Tablet 25 Mg PO DAILY Seroquel (Quetiapine Fumarate) 25 Mg Tablet 75 Mg PO QHS Namenda (Memantine Hcl) 10 Mg Tablet 10 Mg PO BID Lovastatin 40 Mg Tablet 80 Mg PO QHS Levothyroxine Sodium 100 Mcg Tablet 100 Mcg PO DAILYAC Keppra (Levetiracetam) 500 Mg Tablet 500 Mg PO BID Heparin 5,000 Unit/5 ml-Ns (Heparin Sod,Porcine/0.9 % NaCl) 5,000 Unit/5 Ml Syringe 5,000 Unit IM Q8HRS Vitamin D2 (Ergocalciferol (Vitamin D2)) 50,000 Unit Capsule 50,000 Unit PO WEEKLY Benazepril Hcl 20 Mg Tablet 20 Mg PO DAILY Aspirin 81 Mg Tab.chew 81 Mg PO DAILY Amlodipine Besylate 5 Mg Tablet 5 Mg PO DAILY Tylenol (Acetaminophen) 325 Mg Tablet 650 Mg PO PRN Q4HRS PRN I have reviewed the current psychotropics carefully including drug interactions. Risk benefit ratio favors no change other than as noted in my dictated progress note. Diagnosis: Problems: (1) Anxiety disorder (2) Mild cognitive disorder (3) Major depressive disorder, recurrent episode (4) Impulse control disorder ANTONIA BAILEY MD Sep 19, 2018 23:13
[2018-09-19] MEDS: INSULIN GLARGINE 300 UNITS/3 ML INSULN.PEN. SQ SCH (23:23)
[2018-09-19] MEDS: METHYL SALICYLATE/MENTHOL TOPICAL OINTMENT 29GM TUBE. TP PRN (23:33)
[2018-09-20] MEDS: LEVOTHYROXINE 100 MCG TABLET PO SCH (06:07)
[2018-09-20] MEDS: HEPARIN for SUB-Q USE 5,000 UNIT/ML VIAL. SQ SCH ×3 (06:11→20:08)
[2018-09-20 06:41] VITALS: BP 145/78
[2018-09-20] MEDS: INSULIN LISPRO 300 UNITS/3 ML INSULN.PEN. SQ SCH ×3 (07:58→17:00)
[2018-09-20] MEDS: amLODIPine BESYLATE 5 MG TABLET PO SCH (07:59)
[2018-09-20] MEDS: GABAPENTIN 100 MG CAPSULE. PO SCH ×3 (07:59→20:07)
[2018-09-20] MEDS: MEMANTINE 10 MG TABLET. PO SCH ×2 (07:59→20:06)
[2018-09-20] MEDS: levETIRAcetam 500 MG TABLET PO SCH ×2 (07:59→20:06)
[2018-09-20] MEDS: DULoxetine HCL 60 MG CAPSULE.DR PO SCH (07:59)
[2018-09-20] MEDS: LISINOPRIL 20 MG TABLET PO SCH (08:00)
[2018-09-20] MEDS: buPROPion XL 150 MG TAB.ER.24H PO SCH (08:00)
[2018-09-20] MEDS: LACTOBACILLUS RHAMNOSUS GG 1 CAPSULE. PO SCH ×2 (08:00→20:06)
[2018-09-20] MEDS: ASPIRIN 81 MG TAB.CHEW PO SCH (08:00)
[2018-09-20 15:31] VITALS: BP 138/83
[2018-09-20] MEDS: ATORVASTATIN CALCIUM 20 MG TABLET PO SCH (20:06)
[2018-09-20] MEDS: INSULIN GLARGINE 300 UNITS/3 ML INSULN.PEN. SQ SCH (20:07)
[2018-09-20] MEDS: QUEtiapine 25 MG TABLET. PO SCH (20:07)
--- NOTE | 2018-09-20 22:06 | PN ---
DATE: 09/18/2018 PSYCHIATRIC PROGRESS NOTE This late entry 09/18/2018 covers elements, not covered in my initial note. SUBJECTIVE: I met with the patient in the evening. The patient slept 9-1/4 hours previous night. She naps off and on during the day, somewhat withdrawn at times, but less depressed. REVIEW OF SYSTEMS: Ambulation impaired, in wheelchair. No CV, , pulmonary, eye system symptoms on review. MENTAL STATUS EXAM: Oriented to herself and situation. Speech has some latency, low in rate and rhythm, low in volume. Abstraction fair, computation impaired, language function intact, attention span short. Mood and affect somewhat withdrawn. LABORATORY DATA: Reviewed. IMPRESSION: Unchanged from initial note. PLAN: No change from initial note. ANTONIA BAILEY MD DR: RAYMON/christen JOB#: [id number] / [id number]
--- NOTE | 2018-09-20 22:07 | PN ---
DATE: 09/19/2018 PSYCHIATRIC PROGRESS NOTE This late entry 09/19/2018 covers elements not covered in my initial note. SUBJECTIVE: I met with the patient in the evening. The patient was also staffed at a treatment team meeting with the entire team in the morning. The patient slept reasonably well previous night. She is still somewhat withdrawn during the day, but little more interactive. Social service staff discussed possible placement at [facility]. REVIEW OF SYSTEMS: Ambulation impaired, in wheelchair. No CV, , pulmonary, eye system symptoms on review. MENTAL STATUS EXAM: Oriented to herself and situation. Speech is low in rate and rhythm, low in volume, often responses monosyllabic. Abstraction fair, computation impaired, language function intact, attention span short. Mood and affect somewhat withdrawn, but improved. LABORATORY DATA: Reviewed. IMPRESSION: Unchanged from initial note. PLAN: No change from initial note. MAN Han BAILEY MD DR: RAYMON/christen JOB#: [id number] / [id number]
--- NOTE | 2018-09-20 22:51 | PDOC ---
Exam Note: José Miguel Note: Please also refer to the separate dictated note~for this date of service dictated separately.~Patient seen individually. Discussed the patient with Nursing staff reviewed the chart.~Reviewed interim history and current functioning. Reviewed vital signs,~Labs/ Radiology~and current medications noted below. Continue current treatment with the changes noted in the dictated addendum note Assessment: Vital Signs: Vital Signs Date Time Temp Pulse Resp B/P (MAP) Pulse Ox O2 Delivery O2 Flow Rate FiO2 09/20/18 15:31 98.3 79 18 138/83 (101) 96 09/20/18 06:41 BiPAP/CPAP I&O Intake and Output 09/20/18 07:01 Intake Total 720 ml Balance 720 ml Intake Oral 720 ml # Voids 1 Labs: Laboratory Tests Test 09/20/18 07:27 09/20/18 11:28 09/20/18 16:44 09/20/18 19:21 Glucose (Fingerstick) 145 mg/dL (70-99) H 253 mg/dL (70-99) H 151 mg/dL (70-99) H 181 mg/dL (70-99) H Current Medications: Meds: Current Medications Acetaminophen (Tylenol) 650 mg PRN Q6HRS PRN PO PAIN / TEMP Last administered on 09/13/18at 09:43; Start 08/08/18 at 20:00 Multi-Ingredient Ointment (Analgesic Olin) 1 frank PRN QID PRN TP MUSCLE PAIN Last administered on 09/19/18at 23:33; Start 08/08/18 at 20:00 Al Hydroxide/Mg Hydroxide (Mylanta Plus Xs) 15 ml PRN AFTMEALHC PRN PO DYSPEPSIA; Start 08/08/18 at 20:00 Magnesium Hydroxide (Milk Of Magnesia) 2,400 mg PRN QHS PRN PO CONSTIPATION Last administered on 09/18/18at 19:52; Start 08/08/18 at 20:00 Memantine (Namenda) 10 mg BID PO Last administered on 09/20/18at 20:06; Start 08/08/18 at 22:00 Quetiapine Fumarate (SEROquel) 25 mg DAILY PO Last administered on 09/05/18at 08 :51; Start 08/09/18 at 09:00; Stop 09/05/18 at 11:58; Status DC Quetiapine Fumarate (SEROquel) 75 mg HS PO Last administered on 09/20/18at 20: 07; Start 08/08/18 at 22:00 Venlafaxine HCl (Effexor) 50 mg TID PO Last administered on 08/10/18at 13:40; Start 08/09/18 at 09:00; Stop 08/10/18 at 17:54; Status DC Acetaminophen (Tylenol) 650 mg PRN Q4HRS PRN PO PAIN / TEMP; Start 08/08/18 at 21:30; Status Cancel Levothyroxine Sodium (Synthroid) 100 mcg DAILY06 PO Last administered on at 06:07; Start 08/09/18 at 06:00 Amlodipine Besylate (Norvasc) 5 mg DAILY PO Last administered on 09/20/18at 07: 59; Start 08/09/18 at 09:00 Aspirin (Children'S Aspirin) 81 mg DAILY PO Last administered on 09/20/18at 08: 00; Start 08/09/18 at 09:00 Lisinopril (Prinivil) 20 mg DAILY PO Last administered on 09/20/18at 08:00; Start 08/09/18 at 09:00 Vitamin D (Vitamin D3) 50,000 unit WEEKLY PO Last administered on 09/19/18at 07 :57; Start 08/15/18 at 09:00 Heparin Sodium (Porcine) (Heparin Sq) 5,000 unit Q8HRS SQ Last administered on 08/27/18at 22:37; Start 08/08/18 at 22:00; Stop 08/27/18 at 23:00; Status DC Levetiracetam (Keppra) 500 mg BID PO Last administered on 09/20/18at 20:06; Start 08/08/18 at 22:00 Atorvastatin Calcium (Lipitor) 20 mg QHS PO Last administered on 09/20/18at 20: 06; Start 08/09/18 at 21:00 Insulin Human Lispro (HumaLOG) 0-5 UNITS TIDWMEALS SQ Last administered on 09/05at 09:13; Start 08/09/18 at 08:00; Stop 09/05/18 at 14:16; Status DC Dextrose 12.5 gm PRN Q15MIN PRN IV SEE COMMENTS; Start 08/09/18 at 05:45; Stop 09/05/18 at 14:16; Status DC Duloxetine HCl (Cymbalta) 30 mg DAILY PO Last administered on 08/12/18at 08:06 ; Start 08/11/18 at 09:00; Stop 08/12/18 at 09:02; Status DC Duloxetine HCl (Cymbalta) 60 mg DAILY PO Last administered on 09/20/18at 07:59 ; Start 08/13/18 at 09:00 Cephalexin HCl (Keflex) 500 mg TID PO Last administered on 08/20/18at 19:28; Start 08/11/18 at 09:00; Stop 08/21/18 at 08:59; Status DC Lactobacillus Rhamnosus (Culturelle) 1 cap BID PO Last administered on at 20:06; Start 08/11/18 at 09:00 Levothyroxine Sodium (Synthroid) 100 mcg 1X ONCE PO Last administered on 08/15at 06:23; Start 08/15/18 at 06:30; Stop 08/15/18 at 06:31; Status DC Olanzapine (ZyPREXA ZYDIS) 10 mg PRN BID PRN PO AGITATION; Start 08/24/18 at 17:45 Olanzapine (ZyPREXA IM) 5 mg PRN BID PRN IM AGITATION Last administered on at 17:53; Start 08/24/18 at 17:45 Cefpodoxime Proxetil (Vantin) 200 mg BID PO Last administered on 08/27/18at 08: 28; Start 08/25/18 at 17:30; Stop 08/27/18 at 17:27; Status DC Gabapentin (Neurontin) 100 mg BID PO Last administered on 09/13/18at 09:05; Start 08/25/18 at 21:00; Stop 09/13/18 at 16:30; Status DC Quetiapine Fumarate (SEROquel) 12.5 mg DAILY16 PO Last administered on at 16:29; Start 08/27/18 at 16:00; Stop 09/16/18 at 16:52; Status DC Heparin Sodium (Porcine) (Heparin Sodium) 5,000 unit Q8HRS SQ Last administered on 09/20/18at 20:08; Start 08/28/18 at 06:00 Ciprofloxacin (Cipro) 500 mg BID PO Last administered on 09/06/18at 08:09; Start 08/27/18 at 21:00; Stop 09/06/18 at 20:59; Status DC Insulin Human Lispro (HumaLOG) 0-9 UNITS TIDWMEALS SQ Last administered on at 17:00; Start 09/05/18 at 17:00 Dextrose 12.5 gm PRN Q15MIN PRN IV SEE COMMENTS; Start 09/05/18 at 14:15 Gabapentin (Neurontin) 200 mg TID PO Last administered on 09/20/18at 20:07; Start 09/13/18 at 21:00 Bupropion HCl (Wellbutrin Xl) 150 mg DAILY PO Last administered on 09/20/18at 08:00; Start 09/17/18 at 09:00 Insulin Glargine (Lantus) 15 units QHS SQ Last administered on 09/20/18at 20:07 ; Start 09/19/18 at 21:00 Active Scripts Active Reported Seroquel (Quetiapine Fumarate) 25 Mg Tablet 12.5 Mg PO DAILY16 Olanzapine 10 Mg Tablet 10 Mg PO PRN BID PRN Olanzapine Inj (Olanzapine) 10 Mg Vial 5 Mg IM PRN BID PRN Analgesic Olin (Methyl Salicylate/Menthol) 28 Gm Oint...g. 1 Frank TP PRN QID PRN Milk Of Magnesia (Magnesium Hydroxide) 2,400 Mg/10 Ml Oral.susp 2,400 Mg PO PRN QHS PRN Advanced Antacid Liquid (Mag Hydrox/Al Hydrox/Simeth) 355 Ml Oral.susp 15 Ml PO PRN AFTMEALHC PRN Culturelle (Lactobacillus Rhamnosus Gg) 1 Each Cap.sprink 1 Cap PO BID Humalog (Insulin Lispro) 100 Unit/1 Ml Cartridge 0-5 Unit SQ TIDWMEALS Gabapentin 100 Mg Capsule 100 Mg PO BID Cymbalta (Duloxetine Hcl) 60 Mg Capsule.dr 60 Mg PO DAILY Ciprofloxacin Hcl 500 Mg Tablet 500 Mg PO BID Venlafaxine Hcl Er (Venlafaxine Hcl) 150 Mg Tab.er.24 150 Mg PO DAILYWBKFT Quetiapine Fumarate 25 Mg Tablet 25 Mg PO DAILY Seroquel (Quetiapine Fumarate) 25 Mg Tablet 75 Mg PO QHS Namenda (Memantine Hcl) 10 Mg Tablet 10 Mg PO BID Lovastatin 40 Mg Tablet 80 Mg PO QHS Levothyroxine Sodium 100 Mcg Tablet 100 Mcg PO DAILYAC Keppra (Levetiracetam) 500 Mg Tablet 500 Mg PO BID Heparin 5,000 Unit/5 ml-Ns (Heparin Sod,Porcine/0.9 % NaCl) 5,000 Unit/5 Ml Syringe 5,000 Unit IM Q8HRS Vitamin D2 (Ergocalciferol (Vitamin D2)) 50,000 Unit Capsule 50,000 Unit PO WEEKLY Benazepril Hcl 20 Mg Tablet 20 Mg PO DAILY Aspirin 81 Mg Tab.chew 81 Mg PO DAILY Amlodipine Besylate 5 Mg Tablet 5 Mg PO DAILY Tylenol (Acetaminophen) 325 Mg Tablet 650 Mg PO PRN Q4HRS PRN I have reviewed the current psychotropics carefully including drug interactions. Risk benefit ratio favors no change other than as noted in my dictated progress note. Diagnosis: Problems: (1) Anxiety disorder (2) Mild cognitive disorder (3) Major depressive disorder, recurrent episode (4) Impulse control disorder ANTONIA BAILEY MD Sep 20, 2018 22:51
[2018-09-21] MEDS: LEVOTHYROXINE 100 MCG TABLET PO SCH (05:19)
[2018-09-21] MEDS: HEPARIN for SUB-Q USE 5,000 UNIT/ML VIAL. SQ SCH ×3 (05:23→20:41)
[2018-09-21 06:35] VITALS: BP_SYST 113; BP_SYST 120; BP_DIAS 74; BP_DIAS 75
[2018-09-21] MEDS: LACTOBACILLUS RHAMNOSUS GG 1 CAPSULE. PO SCH ×2 (07:56→20:38)
[2018-09-21] MEDS: levETIRAcetam 500 MG TABLET PO SCH ×2 (07:57→20:38)
[2018-09-21] MEDS: ASPIRIN 81 MG TAB.CHEW PO SCH (07:57)
[2018-09-21] MEDS: DULoxetine HCL 60 MG CAPSULE.DR PO SCH (07:57)
[2018-09-21] MEDS: buPROPion XL 150 MG TAB.ER.24H PO SCH (07:57)
[2018-09-21] MEDS: amLODIPine BESYLATE 5 MG TABLET PO SCH (07:57)
[2018-09-21] MEDS: MEMANTINE 10 MG TABLET. PO SCH ×2 (07:58→20:38)
[2018-09-21] MEDS: INSULIN LISPRO 300 UNITS/3 ML INSULN.PEN. SQ SCH ×3 (07:58→18:48)
[2018-09-21] MEDS: GABAPENTIN 100 MG CAPSULE. PO SCH ×3 (07:58→20:38)
[2018-09-21] MEDS: LISINOPRIL 20 MG TABLET PO SCH (07:58)
[2018-09-21 08:44] LABS: ALBUMIN 3.5 g/dL (3.4-5.0); ALBUMIN/GLOBULIN RATIO 0.8 (1.0-1.7); BASO # 0.1 x10^3/uL (0.0-0.2); BASO % 1 % (0-3); CALCIUM 9.8 mg/dL (8.5-10.1); EOS # 0.2 x10^3/uL (0.0-0.7); EOS % 4 % (0-3); GFR 54.1; HEMATOCRIT 37.2 % (36.0-47.0); HEMOGLOBIN 12.5 g/dL (12.0-15.5); LYMPH % 30 % (24-48); MEAN CORPUSCULAR HEMOGLOBIN 32 pg (25-35); MEAN CORPUSCULAR HGB CONC 34 g/dL (31-37); MEAN CORPUSCULAR VOLUME 94 fL (79-100); MONO # 0.3 x10^3/uL (0.0-1.1); MONO % 5 % (0-9); NEUT % 61 % (31-73); PLATELET COUNT 278 x10^3/uL (140-400); POTASSIUM 4.3 mmol/L (3.5-5.1); RED BLOOD COUNT 3.95 x10^6/uL (3.50-5.40); TOTAL BILIRUBIN 0.5 mg/dL (0.2-1.0); TOTAL PROTEIN 8.1 g/dL (6.4-8.2); WHITE BLOOD COUNT 6.6 x10^3/uL (4.0-11.0)
[2018-09-21 16:27] VITALS: BP 151/94
[2018-09-21] MEDS: QUEtiapine 25 MG TABLET. PO SCH (20:38)
[2018-09-21] MEDS: ATORVASTATIN CALCIUM 20 MG TABLET PO SCH (20:38)
[2018-09-21] MEDS: INSULIN GLARGINE 300 UNITS/3 ML INSULN.PEN. SQ SCH (20:41)
--- NOTE | 2018-09-21 22:13 | PDOC ---
Exam Note: José Miguel Note: Please also refer to the separate dictated note~for this date of service dictated separately.~Patient seen individually. Discussed the patient with Nursing staff reviewed the chart.~Reviewed interim history and current functioning. Reviewed vital signs,~Labs/ Radiology~and current medications noted below. Continue current treatment with the changes noted in the dictated addendum note Assessment: Vital Signs: Vital Signs Date Time Temp Pulse Resp B/P (MAP) Pulse Ox O2 Delivery O2 Flow Rate FiO2 09/21/18 16:27 98.0 69 20 151/94 (113) 97 Room Air I&O Intake and Output 09/21/18 07:01 Intake Total 840 ml Balance 840 ml Intake Oral 840 ml Labs: Laboratory Tests Test 09/21/18 07:21 09/21/18 08:10 09/21/18 11:52 09/21/18 16:55 Glucose (Fingerstick) 146 mg/dL (70-99) H 218 mg/dL (70-99) H 206 mg/dL (70-99) H White Blood Count 6.6 x10^3/uL (4.0-11.0) Red Blood Count 3.95 x10^6/uL (3.50-5.40) Hemoglobin 12.5 g/dL (12.0-15.5) Hematocrit 37.2 % (36.0-47.0) Mean Corpuscular Volume 94 fL (79-100) Mean Corpuscular Hemoglobin 32 pg (25-35) Mean Corpuscular Hemoglobin Concent 34 g/dL (31-37) Red Cell Distribution Width 15.0 % (11.5-14.5) H Platelet Count 278 x10^3/uL (140-400) Neutrophils (%) (Auto) 61 % (31-73) Lymphocytes (%) (Auto) 30 % (24-48) Monocytes (%) (Auto) 5 % (0-9) Eosinophils (%) (Auto) 4 % (0-3) H Basophils (%) (Auto) 1 % (0-3) Neutrophils # (Auto) 4.0 x10^3uL (1.8-7.7) Lymphocytes # (Auto) 2.0 x10^3/uL (1.0-4.8) Monocytes # (Auto) 0.3 x10^3/uL (0.0-1.1) Eosinophils # (Auto) 0.2 x10^3/uL (0.0-0.7) Basophils # (Auto) 0.1 x10^3/uL (0.0-0.2) Sodium Level 139 mmol/L (136-145) Potassium Level 4.3 mmol/L (3.5-5.1) Chloride Level 100 mmol/L (98-107) Carbon Dioxide Level 29 mmol/L (21-32) Anion Gap 10 (6-14) Blood Urea Nitrogen 19 mg/dL (7-20) Creatinine 1.0 mg/dL (0.6-1.0) Estimated GFR (Cockcroft-Gault) 54.1 BUN/Creatinine Ratio 19 (6-20) Glucose Level 176 mg/dL (70-99) H Calcium Level 9.8 mg/dL (8.5-10.1) Total Bilirubin 0.5 mg/dL (0.2-1.0) Aspartate Amino Transferase (AST) 15 U/L (15-37) Alanine Aminotransferase (ALT) 18 U/L (14-59) Alkaline Phosphatase 99 U/L (46-116) Total Protein 8.1 g/dL (6.4-8.2) Albumin 3.5 g/dL (3.4-5.0) Albumin/Globulin Ratio 0.8 (1.0-1.7) L Test 09/21/18 19:39 Glucose (Fingerstick) 251 mg/dL (70-99) H Current Medications: Meds: Current Medications Acetaminophen (Tylenol) 650 mg PRN Q6HRS PRN PO PAIN / TEMP Last administered on 09/13/18at 09:43; Start 08/08/18 at 20:00 Multi-Ingredient Ointment (Analgesic Coats) 1 frank PRN QID PRN TP MUSCLE PAIN Last administered on 09/19/18at 23:33; Start 08/08/18 at 20:00 Al Hydroxide/Mg Hydroxide (Mylanta Plus Xs) 15 ml PRN AFTMEALHC PRN PO DYSPEPSIA; Start 08/08/18 at 20:00 Magnesium Hydroxide (Milk Of Magnesia) 2,400 mg PRN QHS PRN PO CONSTIPATION Last administered on 09/18/18at 19:52; Start 08/08/18 at 20:00 Memantine (Namenda) 10 mg BID PO Last administered on 09/21/18 20:38; Start 08/08/18 at 22:00 Quetiapine Fumarate (SEROquel) 25 mg DAILY PO Last administered on 09/05/18at 08 :51; Start 08/09/18 at 09:00; Stop 09/05/18 at 11:58; Status DC Quetiapine Fumarate (SEROquel) 75 mg HS PO Last administered on 09/21/18 20: 38; Start 08/08/18 at 22:00 Venlafaxine HCl (Effexor) 50 mg TID PO Last administered on 08/10/18at 13:40; Start 08/09/18 at 09:00; Stop 08/10/18 at 17:54; Status DC Acetaminophen (Tylenol) 650 mg PRN Q4HRS PRN PO PAIN / TEMP; Start 08/08/18 at 21:30; Status Cancel Levothyroxine Sodium (Synthroid) 100 mcg DAILY06 PO Last administered on 05:19; Start 08/09/18 at 06:00 Amlodipine Besylate (Norvasc) 5 mg DAILY PO Last administered on 09/21/18 07: 57; Start 08/09/18 at 09:00 Aspirin (Children'S Aspirin) 81 mg DAILY PO Last administered on 09/21/18 07: 57; Start 08/09/18 at 09:00 Lisinopril (Prinivil) 20 mg DAILY PO Last administered on 09/21/18 07:58; Start 08/09/18 at 09:00 Vitamin D (Vitamin D3) 50,000 unit WEEKLY PO Last administered on 09/19/18at 07 :57; Start 08/15/18 at 09:00 Heparin Sodium (Porcine) (Heparin Sq) 5,000 unit Q8HRS SQ Last administered on 08/27/18at 22:37; Start 08/08/18 at 22:00; Stop 08/27/18 at 23:00; Status DC Levetiracetam (Keppra) 500 mg BID PO Last administered on 09/21/18 20:38; Start 08/08/18 at 22:00 Atorvastatin Calcium (Lipitor) 20 mg QHS PO Last administered on 12/22/18at 20: 38; Start 08/09/18 at 21:00 Insulin Human Lispro (HumaLOG) 0-5 UNITS TIDWMEALS SQ Last administered on 09/05at 09:13; Start 08/09/18 at 08:00; Stop 09/05/18 at 14:16; Status DC Dextrose 12.5 gm PRN Q15MIN PRN IV SEE COMMENTS; Start 08/09/18 at 05:45; Stop 09/05/18 at 14:16; Status DC Duloxetine HCl (Cymbalta) 30 mg DAILY PO Last administered on 08/12/18at 08:06 ; Start 08/11/18 at 09:00; Stop 08/12/18 at 09:02; Status DC Duloxetine HCl (Cymbalta) 60 mg DAILY PO Last administered on 09/21/18at 07:57 ; Start 08/13/18 at 09:00 Cephalexin HCl (Keflex) 500 mg TID PO Last administered on 08/20/18at 19:28; Start 08/11/18 at 09:00; Stop 08/21/18 at 08:59; Status DC Lactobacillus Rhamnosus (Culturelle) 1 cap BID PO Last administered on at 20:38; Start 08/11/18 at 09:00 Levothyroxine Sodium (Synthroid) 100 mcg 1X ONCE PO Last administered on 08/15at 06:23; Start 08/15/18 at 06:30; Stop 08/15/18 at 06:31; Status DC Olanzapine (ZyPREXA ZYDIS) 10 mg PRN BID PRN PO AGITATION; Start 08/24/18 at 17:45 Olanzapine (ZyPREXA IM) 5 mg PRN BID PRN IM AGITATION Last administered on at 17:53; Start 08/24/18 at 17:45 Cefpodoxime Proxetil (Vantin) 200 mg BID PO Last administered on 08/27/18at 08: 28; Start 08/25/18 at 17:30; Stop 08/27/18 at 17:27; Status DC Gabapentin (Neurontin) 100 mg BID PO Last administered on 09/13/18at 09:05; Start 08/25/18 at 21:00; Stop 09/13/18 at 16:30; Status DC Quetiapine Fumarate (SEROquel) 12.5 mg DAILY16 PO Last administered on at 16:29; Start 08/27/18 at 16:00; Stop 09/16/18 at 16:52; Status DC Heparin Sodium (Porcine) (Heparin Sodium) 5,000 unit Q8HRS SQ Last administered on 09/21/18at 20:41; Start 08/28/18 at 06:00 Ciprofloxacin (Cipro) 500 mg BID PO Last administered on 09/06/18at 08:09; Start 08/27/18 at 21:00; Stop 09/06/18 at 20:59; Status DC Insulin Human Lispro (HumaLOG) 0-9 UNITS TIDWMEALS SQ Last administered on at 18:48; Start 09/05/18 at 17:00 Dextrose 12.5 gm PRN Q15MIN PRN IV SEE COMMENTS; Start 09/05/18 at 14:15 Gabapentin (Neurontin) 200 mg TID PO Last administered on 09/21/18at 20:38; Start 09/13/18 at 21:00 Bupropion HCl (Wellbutrin Xl) 150 mg DAILY PO Last administered on 09/21/18at 07:57; Start 09/17/18 at 09:00 Insulin Glargine (Lantus) 15 units QHS SQ Last administered on 09/21/18at 20:41 ; Start 09/19/18 at 21:00 Active Scripts Active Reported Seroquel (Quetiapine Fumarate) 25 Mg Tablet 12.5 Mg PO DAILY16 Olanzapine 10 Mg Tablet 10 Mg PO PRN BID PRN Olanzapine Inj (Olanzapine) 10 Mg Vial 5 Mg IM PRN BID PRN Analgesic Coats (Methyl Salicylate/Menthol) 28 Gm Oint...g. 1 Frank TP PRN QID PRN Milk Of Magnesia (Magnesium Hydroxide) 2,400 Mg/10 Ml Oral.susp 2,400 Mg PO PRN QHS PRN Advanced Antacid Liquid (Mag Hydrox/Al Hydrox/Simeth) 355 Ml Oral.susp 15 Ml PO PRN AFTMEALHC PRN Culturelle (Lactobacillus Rhamnosus Gg) 1 Each Cap.sprink 1 Cap PO BID Humalog (Insulin Lispro) 100 Unit/1 Ml Cartridge 0-5 Unit SQ TIDWMEALS Gabapentin 100 Mg Capsule 100 Mg PO BID Cymbalta (Duloxetine Hcl) 60 Mg Capsule.dr 60 Mg PO DAILY Ciprofloxacin Hcl 500 Mg Tablet 500 Mg PO BID Venlafaxine Hcl Er (Venlafaxine Hcl) 150 Mg Tab.er.24 150 Mg PO DAILYWBKFT Quetiapine Fumarate 25 Mg Tablet 25 Mg PO DAILY Seroquel (Quetiapine Fumarate) 25 Mg Tablet 75 Mg PO QHS Namenda (Memantine Hcl) 10 Mg Tablet 10 Mg PO BID Lovastatin 40 Mg Tablet 80 Mg PO QHS Levothyroxine Sodium 100 Mcg Tablet 100 Mcg PO DAILYAC Keppra (Levetiracetam) 500 Mg Tablet 500 Mg PO BID Heparin 5,000 Unit/5 ml-Ns (Heparin Sod,Porcine/0.9 % NaCl) 5,000 Unit/5 Ml Syringe 5,000 Unit IM Q8HRS Vitamin D2 (Ergocalciferol (Vitamin D2)) 50,000 Unit Capsule 50,000 Unit PO WEEKLY Benazepril Hcl 20 Mg Tablet 20 Mg PO DAILY Aspirin 81 Mg Tab.chew 81 Mg PO DAILY Amlodipine Besylate 5 Mg Tablet 5 Mg PO DAILY Tylenol (Acetaminophen) 325 Mg Tablet 650 Mg PO PRN Q4HRS PRN I have reviewed the current psychotropics carefully including drug interactions. Risk benefit ratio favors no change other than as noted in my dictated progress note. Diagnosis: Problems: (1) Anxiety disorder (2) Mild cognitive disorder (3) Major depressive disorder, recurrent episode (4) Impulse control disorder ANTONIA BAILEY MD Sep 21, 2018 22:13
[2018-09-22] MEDS: LEVOTHYROXINE 100 MCG TABLET PO SCH (06:11)
[2018-09-22] MEDS: HEPARIN for SUB-Q USE 5,000 UNIT/ML VIAL. SQ SCH ×3 (06:12→20:51)
[2018-09-22 06:44] VITALS: BP 137/83
[2018-09-22] MEDS: DULoxetine HCL 60 MG CAPSULE.DR PO SCH (07:55)
[2018-09-22] MEDS: LACTOBACILLUS RHAMNOSUS GG 1 CAPSULE. PO SCH ×2 (07:55→20:49)
[2018-09-22] MEDS: levETIRAcetam 500 MG TABLET PO SCH ×2 (07:55→20:49)
[2018-09-22] MEDS: amLODIPine BESYLATE 5 MG TABLET PO SCH (07:55)
[2018-09-22] MEDS: GABAPENTIN 100 MG CAPSULE. PO SCH ×3 (07:56→20:49)
[2018-09-22] MEDS: buPROPion XL 150 MG TAB.ER.24H PO SCH (07:56)
[2018-09-22] MEDS: ASPIRIN 81 MG TAB.CHEW PO SCH (07:56)
[2018-09-22] MEDS: MEMANTINE 10 MG TABLET. PO SCH ×2 (07:56→20:49)
[2018-09-22] MEDS: LISINOPRIL 20 MG TABLET PO SCH (07:56)
[2018-09-22] MEDS: INSULIN LISPRO 300 UNITS/3 ML INSULN.PEN. SQ SCH ×3 (07:57→17:00)
[2018-09-22] MEDS: ACETAMINOPHEN 325 MG TABLET PO PRN (11:37)
--- NOTE | 2018-09-22 15:26 | PN ---
DATE: 09/21/2018 PSYCHIATRIC PROGRESS NOTE This late entry 09/21/2018 covers elements not covered in my initial note. SUBJECTIVE: I met with the patient in the evening. The patient slept 6-1/2 hours previous night. She is not being aggressive, disruptive, somewhat withdrawn, slightly confused, apathetic at times. REVIEW OF SYSTEMS: Ambulation impaired, in wheelchair. No CV, , pulmonary, eye, ENT system symptoms on review. MENTAL STATUS EXAM: Oriented to herself and situation. Speech has some latency, often responses monosyllabic. Abstraction fair, computation impaired, language function intact, attention span short. Mood and affect remain somewhat withdrawn. She does have short-term memory deficits, but reasonably oriented. LABORATORY DATA: Reviewed. IMPRESSION: Major depressive disorder with psychotic features in partial remission; cognitive disorder, unspecified. PLAN: No change in psychotropics from initial note. MAN Han BAILEY MD DR: RAYMON/christen JOB#: [id number] / [id number]
--- NOTE | 2018-09-22 15:32 | PN ---
DATE: 09/20/2018 This late entry 09/20/2018 covers elements not covered in my initial note. SUBJECTIVE: I met with the patient in the evening. The patient slept 5-3/4 hours previous night. She has been somewhat depressed, withdrawn, little more interactive as I met with her. REVIEW OF SYSTEMS: Ambulation impaired, in wheelchair. No CV, , pulmonary, eye, ENT system symptoms on review. She talked about Dixie coming to visit her. MENTAL STATUS EXAM: Oriented to herself and situation. Speech has some latency, low in rate and rhythm, low in volume. Abstraction fair, computation impaired, language function intact, attention span short. Mood and affect somewhat withdrawn. LABORATORY DATA: Reviewed. IMPRESSION: Unchanged from initial note. PLAN: No change from initial note. MAN Han BAILEY MD DR: RAYMON/christen JOB#: [id number] / [id number]
[2018-09-22 16:39] VITALS: BP 130/83
[2018-09-22] MEDS: ATORVASTATIN CALCIUM 20 MG TABLET PO SCH (20:49)
[2018-09-22] MEDS: QUEtiapine 25 MG TABLET. PO SCH (20:49)
[2018-09-22] MEDS: INSULIN GLARGINE 300 UNITS/3 ML INSULN.PEN. SQ SCH (20:52)
--- NOTE | 2018-09-22 22:59 | PDOC ---
Exam Note: José Miguel Note: Please also refer to the separate dictated note~for this date of service dictated separately.~Patient seen individually. Discussed the patient with Nursing staff reviewed the chart.~Reviewed interim history and current functioning. Reviewed vital signs,~Labs/ Radiology~and current medications noted below. Continue current treatment with the changes noted in the dictated addendum note Assessment: Vital Signs: Vital Signs Date Time Temp Pulse Resp B/P (MAP) Pulse Ox O2 Delivery O2 Flow Rate FiO2 09/22/18 16:39 98.1 80 18 130/83 (99) 95 09/22/18 06:44 Room Air I&O Intake and Output 09/22/18 07:01 Intake Total 1320 ml Balance 1320 ml Intake Oral 1320 ml # Bowel Movements 1 Labs: Laboratory Tests Test 09/22/18 07:31 09/22/18 11:24 09/22/18 16:29 09/22/18 19:06 Glucose (Fingerstick) 147 mg/dL (70-99) H 203 mg/dL (70-99) H 196 mg/dL (70-99) H 218 mg/dL (70-99) H Current Medications: Meds: Current Medications Acetaminophen (Tylenol) 650 mg PRN Q6HRS PRN PO PAIN / TEMP Last administered on 09/22/18at 11:37; Start 08/08/18 at 20:00 Multi-Ingredient Ointment (Analgesic [place]) 1 frank PRN QID PRN TP MUSCLE PAIN Last administered on 09/19/18at 23:33; Start 08/08/18 at 20:00 Al Hydroxide/Mg Hydroxide (Mylanta Plus Xs) 15 ml PRN AFTMEALHC PRN PO DYSPEPSIA; Start 08/08/18 at 20:00 Magnesium Hydroxide (Milk Of Magnesia) 2,400 mg PRN QHS PRN PO CONSTIPATION Last administered on 09/18/18at 19:52; Start 08/08/18 at 20:00 Memantine (Namenda) 10 mg BID PO Last administered on 09/22/18at 20:49; Start 08/08/18 at 22:00 Quetiapine Fumarate (SEROquel) 25 mg DAILY PO Last administered on 09/05/18at 08 :51; Start 08/09/18 at 09:00; Stop 09/05/18 at 11:58; Status DC Quetiapine Fumarate (SEROquel) 75 mg HS PO Last administered on 09/21/18at 20: 38; Start 08/08/18 at 22:00; Stop 09/22/18 at 18:49; Status DC Venlafaxine HCl (Effexor) 50 mg TID PO Last administered on 08/10/18at 13:40; Start 08/09/18 at 09:00; Stop 08/10/18 at 17:54; Status DC Acetaminophen (Tylenol) 650 mg PRN Q4HRS PRN PO PAIN / TEMP; Start 08/08/18 at 21:30; Status Cancel Levothyroxine Sodium (Synthroid) 100 mcg DAILY06 PO Last administered on at 06:11; Start 08/09/18 at 06:00 Amlodipine Besylate (Norvasc) 5 mg DAILY PO Last administered on 09/22/18at 07: 55; Start 08/09/18 at 09:00 Aspirin (Children'S Aspirin) 81 mg DAILY PO Last administered on 09/22/18at 07: 56; Start 08/09/18 at 09:00 Lisinopril (Prinivil) 20 mg DAILY PO Last administered on 09/22/18at 07:56; Start 08/09/18 at 09:00 Vitamin D (Vitamin D3) 50,000 unit WEEKLY PO Last administered on 09/19/18at 07 :57; Start 08/15/18 at 09:00 Heparin Sodium (Porcine) (Heparin Sq) 5,000 unit Q8HRS SQ Last administered on 08/27/18at 22:37; Start 08/08/18 at 22:00; Stop 08/27/18 at 23:00; Status DC Levetiracetam (Keppra) 500 mg BID PO Last administered on 09/22/18at 20:49; Start 08/08/18 at 22:00 Atorvastatin Calcium (Lipitor) 20 mg QHS PO Last administered on 09/22/18at 20: 49; Start 08/09/18 at 21:00 Insulin Human Lispro (HumaLOG) 0-5 UNITS TIDWMEALS SQ Last administered on 09/05at 09:13; Start 08/09/18 at 08:00; Stop 09/05/18 at 14:16; Status DC Dextrose 12.5 gm PRN Q15MIN PRN IV SEE COMMENTS; Start 08/09/18 at 05:45; Stop 09/05/18 at 14:16; Status DC Duloxetine HCl (Cymbalta) 30 mg DAILY PO Last administered on 08/12/18at 08:06 ; Start 08/11/18 at 09:00; Stop 08/12/18 at 09:02; Status DC Duloxetine HCl (Cymbalta) 60 mg DAILY PO Last administered on 09/22/18at 07:55 ; Start 08/13/18 at 09:00 Cephalexin HCl (Keflex) 500 mg TID PO Last administered on 08/20/18at 19:28; Start 08/11/18 at 09:00; Stop 08/21/18 at 08:59; Status DC Lactobacillus Rhamnosus (Culturelle) 1 cap BID PO Last administered on at 20:49; Start 08/11/18 at 09:00 Levothyroxine Sodium (Synthroid) 100 mcg 1X ONCE PO Last administered on 08/15at 06:23; Start 08/15/18 at 06:30; Stop 08/15/18 at 06:31; Status DC Olanzapine (ZyPREXA ZYDIS) 10 mg PRN BID PRN PO AGITATION; Start 08/24/18 at 17:45; Stop 09/22/18 at 12:01; Status DC Olanzapine (ZyPREXA IM) 5 mg PRN BID PRN IM AGITATION Last administered on at 17:53; Start 08/24/18 at 17:45; Stop 09/22/18 at 12:01; Status DC Cefpodoxime Proxetil (Vantin) 200 mg BID PO Last administered on 08/27/18at 08: 28; Start 08/25/18 at 17:30; Stop 08/27/18 at 17:27; Status DC Gabapentin (Neurontin) 100 mg BID PO Last administered on 09/13/18at 09:05; Start 08/25/18 at 21:00; Stop 09/13/18 at 16:30; Status DC Quetiapine Fumarate (SEROquel) 12.5 mg DAILY16 PO Last administered on at 16:29; Start 08/27/18 at 16:00; Stop 09/16/18 at 16:52; Status DC Heparin Sodium (Porcine) (Heparin Sodium) 5,000 unit Q8HRS SQ Last administered on 09/22/18at 20:51; Start 08/28/18 at 06:00 Ciprofloxacin (Cipro) 500 mg BID PO Last administered on 09/06/18 08:09; Start 08/27/18 at 21:00; Stop 09/06/18 at 20:59; Status DC Insulin Human Lispro (HumaLOG) 0-9 UNITS TIDWMEALS SQ Last administered on at 17:00; Start 09/05/18 at 17:00 Dextrose 12.5 gm PRN Q15MIN PRN IV SEE COMMENTS; Start 09/05/18 at 14:15 Gabapentin (Neurontin) 200 mg TID PO Last administered on 09/22/18at 20:49; Start 09/13/18 at 21:00 Bupropion HCl (Wellbutrin Xl) 150 mg DAILY PO Last administered on 09/22/18at 07:56; Start 09/17/18 at 09:00 Insulin Glargine (Lantus) 15 units QHS SQ Last administered on 09/22/18at 20:52 ; Start 09/19/18 at 21:00 Olanzapine (ZyPREXA ZYDIS) 2.5 mg PRN Q2HR PRN PO PSYCHOSIS Last administered on 09/22/18at 12:00; Start 09/22/18 at 12:00 Quetiapine Fumarate (SEROquel) 50 mg HS PO Last administered on 09/22/18at 20: 49; Start 09/22/18 at 21:00 Active Scripts Active Reported Seroquel (Quetiapine Fumarate) 25 Mg Tablet 12.5 Mg PO DAILY16 Olanzapine 10 Mg Tablet 10 Mg PO PRN BID PRN Olanzapine Inj (Olanzapine) 10 Mg Vial 5 Mg IM PRN BID PRN Analgesic [place] (Methyl Salicylate/Menthol) 28 Gm Oint...g. 1 Frank TP PRN QID PRN Milk Of Magnesia (Magnesium Hydroxide) 2,400 Mg/10 Ml Oral.susp 2,400 Mg PO PRN QHS PRN Advanced Antacid Liquid (Mag Hydrox/Al Hydrox/Simeth) 355 Ml Oral.susp 15 Ml PO PRN AFTMEALHC PRN Culturelle (Lactobacillus Rhamnosus Gg) 1 Each Cap.sprink 1 Cap PO BID Humalog (Insulin Lispro) 100 Unit/1 Ml Cartridge 0-5 Unit SQ TIDWMEALS Gabapentin 100 Mg Capsule 100 Mg PO BID Cymbalta (Duloxetine Hcl) 60 Mg Capsule.dr 60 Mg PO DAILY Ciprofloxacin Hcl 500 Mg Tablet 500 Mg PO BID Venlafaxine Hcl Er (Venlafaxine Hcl) 150 Mg Tab.er.24 150 Mg PO DAILYWBKFT Quetiapine Fumarate 25 Mg Tablet 25 Mg PO DAILY Seroquel (Quetiapine Fumarate) 25 Mg Tablet 75 Mg PO QHS Namenda (Memantine Hcl) 10 Mg Tablet 10 Mg PO BID Lovastatin 40 Mg Tablet 80 Mg PO QHS Levothyroxine Sodium 100 Mcg Tablet 100 Mcg PO DAILYAC Keppra (Levetiracetam) 500 Mg Tablet 500 Mg PO BID Heparin 5,000 Unit/5 ml-Ns (Heparin Sod,Porcine/0.9 % NaCl) 5,000 Unit/5 Ml Syringe 5,000 Unit IM Q8HRS Vitamin D2 (Ergocalciferol (Vitamin D2)) 50,000 Unit Capsule 50,000 Unit PO WEEKLY Benazepril Hcl 20 Mg Tablet 20 Mg PO DAILY Aspirin 81 Mg Tab.chew 81 Mg PO DAILY Amlodipine Besylate 5 Mg Tablet 5 Mg PO DAILY Tylenol (Acetaminophen) 325 Mg Tablet 650 Mg PO PRN Q4HRS PRN I have reviewed the current psychotropics carefully including drug interactions. Risk benefit ratio favors no change other than as noted in my dictated progress note. Diagnosis: Problems: (1) Anxiety disorder (2) Mild cognitive disorder (3) Major depressive disorder, recurrent episode (4) Impulse control disorder ANTONIA BAILEY MD Sep 22, 2018 22:59
[2018-09-23] MEDS: LEVOTHYROXINE 100 MCG TABLET PO SCH (04:57)
[2018-09-23] MEDS: HEPARIN for SUB-Q USE 5,000 UNIT/ML VIAL. SQ SCH ×3 (05:03→20:39)
[2018-09-23 06:23] VITALS: BP 127/80
[2018-09-23] MEDS: levETIRAcetam 500 MG TABLET PO SCH ×2 (09:18→20:38)
[2018-09-23] MEDS: LACTOBACILLUS RHAMNOSUS GG 1 CAPSULE. PO SCH ×2 (09:18→20:38)
[2018-09-23] MEDS: MEMANTINE 10 MG TABLET. PO SCH ×2 (09:18→20:38)
[2018-09-23] MEDS: DULoxetine HCL 60 MG CAPSULE.DR PO SCH (09:19)
[2018-09-23] MEDS: ASPIRIN 81 MG TAB.CHEW PO SCH (09:19)
[2018-09-23] MEDS: LISINOPRIL 20 MG TABLET PO SCH (09:19)
[2018-09-23] MEDS: amLODIPine BESYLATE 5 MG TABLET PO SCH (09:19)
[2018-09-23] MEDS: buPROPion XL 150 MG TAB.ER.24H PO SCH (09:19)
[2018-09-23] MEDS: GABAPENTIN 100 MG CAPSULE. PO SCH ×3 (09:28→20:39)
[2018-09-23] MEDS: INSULIN LISPRO 300 UNITS/3 ML INSULN.PEN. SQ SCH ×3 (09:29→16:48)
[2018-09-23 16:27] VITALS: BP 154/79
--- NOTE | 2018-09-23 19:01 | PDOC ---
Exam Note: José Miguel Note: Please also refer to the separate dictated note~for this date of service dictated separately.~Patient seen individually. Discussed the patient with Nursing staff reviewed the chart.~Reviewed interim history and current functioning. Reviewed vital signs,~Labs/ Radiology~and current medications noted below. Continue current treatment with the changes noted in the dictated addendum note Assessment: Vital Signs: Vital Signs Date Time Temp Pulse Resp B/P (MAP) Pulse Ox O2 Delivery O2 Flow Rate FiO2 09/23/18 16:27 97.7 74 20 154/79 (104) 95 Room Air I&O Intake and Output 09/23/18 07:01 Intake Total 1320 ml Balance 1320 ml Intake Oral 1320 ml Labs: Laboratory Tests Test 09/22/18 19:06 09/23/18 07:15 09/23/18 11:39 09/23/18 16:34 Glucose (Fingerstick) 218 mg/dL (70-99) H 188 mg/dL (70-99) H 195 mg/dL (70-99) H 202 mg/dL (70-99) H Current Medications: Meds: Current Medications Acetaminophen (Tylenol) 650 mg PRN Q6HRS PRN PO PAIN / TEMP Last administered on 09/22/18at 11:37; Start 08/08/18 at 20:00 Multi-Ingredient Ointment (Analgesic [place]) 1 frank PRN QID PRN TP MUSCLE PAIN Last administered on 09/19/18at 23:33; Start 08/08/18 at 20:00 Al Hydroxide/Mg Hydroxide (Mylanta Plus Xs) 15 ml PRN AFTMEALHC PRN PO DYSPEPSIA; Start 08/08/18 at 20:00 Magnesium Hydroxide (Milk Of Magnesia) 2,400 mg PRN QHS PRN PO CONSTIPATION Last administered on 09/18/18at 19:52; Start 08/08/18 at 20:00 Memantine (Namenda) 10 mg BID PO Last administered on 09/23/18at 09:18; Start 08/08/18 at 22:00 Quetiapine Fumarate (SEROquel) 25 mg DAILY PO Last administered on 09/05/18at 08 :51; Start 08/09/18 at 09:00; Stop 09/05/18 at 11:58; Status DC Quetiapine Fumarate (SEROquel) 75 mg HS PO Last administered on 09/21/18at 20: 38; Start 08/08/18 at 22:00; Stop 09/22/18 at 18:49; Status DC Venlafaxine HCl (Effexor) 50 mg TID PO Last administered on 08/10/18at 13:40; Start 08/09/18 at 09:00; Stop 08/10/18 at 17:54; Status DC Acetaminophen (Tylenol) 650 mg PRN Q4HRS PRN PO PAIN / TEMP; Start 08/08/18 at 21:30; Status Cancel Levothyroxine Sodium (Synthroid) 100 mcg DAILY06 PO Last administered on 04:57; Start 08/09/18 at 06:00 Amlodipine Besylate (Norvasc) 5 mg DAILY PO Last administered on 09/23/18 09: 19; Start 08/09/18 at 09:00 Aspirin (Children'S Aspirin) 81 mg DAILY PO Last administered on 09/23/18 09: 19; Start 08/09/18 at 09:00 Lisinopril (Prinivil) 20 mg DAILY PO Last administered on 09/23/18 09:19; Start 08/09/18 at 09:00 Vitamin D (Vitamin D3) 50,000 unit WEEKLY PO Last administered on 09/19/18at 07 :57; Start 08/15/18 at 09:00 Heparin Sodium (Porcine) (Heparin Sq) 5,000 unit Q8HRS SQ Last administered on 08/27/18at 22:37; Start 08/08/18 at 22:00; Stop 08/27/18 at 23:00; Status DC Levetiracetam (Keppra) 500 mg BID PO Last administered on 09/23/18 09:18; Start 08/08/18 at 22:00 Atorvastatin Calcium (Lipitor) 20 mg QHS PO Last administered on 09/22/18at 20: 49; Start 08/09/18 at 21:00 Insulin Human Lispro (HumaLOG) 0-5 UNITS TIDWMEALS SQ Last administered on 09/05at 09:13; Start 08/09/18 at 08:00; Stop 09/05/18 at 14:16; Status DC Dextrose 12.5 gm PRN Q15MIN PRN IV SEE COMMENTS; Start 08/09/18 at 05:45; Stop 09/05/18 at 14:16; Status DC Duloxetine HCl (Cymbalta) 30 mg DAILY PO Last administered on 08/12/18at 08:06 ; Start 08/11/18 at 09:00; Stop 08/12/18 at 09:02; Status DC Duloxetine HCl (Cymbalta) 60 mg DAILY PO Last administered on 09/23/18at 09:19 ; Start 08/13/18 at 09:00 Cephalexin HCl (Keflex) 500 mg TID PO Last administered on 08/20/18at 19:28; Start 08/11/18 at 09:00; Stop 08/21/18 at 08:59; Status DC Lactobacillus Rhamnosus (Culturelle) 1 cap BID PO Last administered on at 09:18; Start 08/11/18 at 09:00 Levothyroxine Sodium (Synthroid) 100 mcg 1X ONCE PO Last administered on 08/15at 06:23; Start 08/15/18 at 06:30; Stop 08/15/18 at 06:31; Status DC Olanzapine (ZyPREXA ZYDIS) 10 mg PRN BID PRN PO AGITATION; Start 08/24/18 at 17:45; Stop 09/22/18 at 12:01; Status DC Olanzapine (ZyPREXA IM) 5 mg PRN BID PRN IM AGITATION Last administered on at 17:53; Start 08/24/18 at 17:45; Stop 09/22/18 at 12:01; Status DC Cefpodoxime Proxetil (Vantin) 200 mg BID PO Last administered on 08/27/18at 08: 28; Start 08/25/18 at 17:30; Stop 08/27/18 at 17:27; Status DC Gabapentin (Neurontin) 100 mg BID PO Last administered on 09/13/18at 09:05; Start 08/25/18 at 21:00; Stop 09/13/18 at 16:30; Status DC Quetiapine Fumarate (SEROquel) 12.5 mg DAILY16 PO Last administered on at 16:29; Start 08/27/18 at 16:00; Stop 09/16/18 at 16:52; Status DC Heparin Sodium (Porcine) (Heparin Sodium) 5,000 unit Q8HRS SQ Last administered on 09/23/18 13:26; Start 08/28/18 at 06:00 Ciprofloxacin (Cipro) 500 mg BID PO Last administered on 09/06/18at 08:09; Start 08/27/18 at 21:00; Stop 09/06/18 at 20:59; Status DC Insulin Human Lispro (HumaLOG) 0-9 UNITS TIDWMEALS SQ Last administered on at 16:48; Start 09/05/18 at 17:00 Dextrose 12.5 gm PRN Q15MIN PRN IV SEE COMMENTS; Start 09/05/18 at 14:15 Gabapentin (Neurontin) 200 mg TID PO Last administered on 09/23/18 13:12; Start 09/13/18 at 21:00 Bupropion HCl (Wellbutrin Xl) 150 mg DAILY PO Last administered on 09/23/18at 09:19; Start 09/17/18 at 09:00 Insulin Glargine (Lantus) 15 units QHS SQ Last administered on 09/22/18at 20:52 ; Start 09/19/18 at 21:00 Olanzapine (ZyPREXA ZYDIS) 2.5 mg PRN Q2HR PRN PO PSYCHOSIS Last administered on 09/22/18at 12:00; Start 09/22/18 at 12:00 Quetiapine Fumarate (SEROquel) 50 mg HS PO Last administered on 09/22/18at 20: 49; Start 09/22/18 at 21:00 Active Scripts Active Reported Seroquel (Quetiapine Fumarate) 25 Mg Tablet 12.5 Mg PO DAILY16 Olanzapine 10 Mg Tablet 10 Mg PO PRN BID PRN Olanzapine Inj (Olanzapine) 10 Mg Vial 5 Mg IM PRN BID PRN Analgesic [place] (Methyl Salicylate/Menthol) 28 Gm Oint...g. 1 Frank TP PRN QID PRN Milk Of Magnesia (Magnesium Hydroxide) 2,400 Mg/10 Ml Oral.susp 2,400 Mg PO PRN QHS PRN Advanced Antacid Liquid (Mag Hydrox/Al Hydrox/Simeth) 355 Ml Oral.susp 15 Ml PO PRN AFTMEALHC PRN Culturelle (Lactobacillus Rhamnosus Gg) 1 Each Cap.sprink 1 Cap PO BID Humalog (Insulin Lispro) 100 Unit/1 Ml Cartridge 0-5 Unit SQ TIDWMEALS Gabapentin 100 Mg Capsule 100 Mg PO BID Cymbalta (Duloxetine Hcl) 60 Mg Capsule.dr 60 Mg PO DAILY Ciprofloxacin Hcl 500 Mg Tablet 500 Mg PO BID Venlafaxine Hcl Er (Venlafaxine Hcl) 150 Mg Tab.er.24 150 Mg PO DAILYWBKFT Quetiapine Fumarate 25 Mg Tablet 25 Mg PO DAILY Seroquel (Quetiapine Fumarate) 25 Mg Tablet 75 Mg PO QHS Namenda (Memantine Hcl) 10 Mg Tablet 10 Mg PO BID Lovastatin 40 Mg Tablet 80 Mg PO QHS Levothyroxine Sodium 100 Mcg Tablet 100 Mcg PO DAILYAC Keppra (Levetiracetam) 500 Mg Tablet 500 Mg PO BID Heparin 5,000 Unit/5 ml-Ns (Heparin Sod,Porcine/0.9 % NaCl) 5,000 Unit/5 Ml Syringe 5,000 Unit IM Q8HRS Vitamin D2 (Ergocalciferol (Vitamin D2)) 50,000 Unit Capsule 50,000 Unit PO WEEKLY Benazepril Hcl 20 Mg Tablet 20 Mg PO DAILY Aspirin 81 Mg Tab.chew 81 Mg PO DAILY Amlodipine Besylate 5 Mg Tablet 5 Mg PO DAILY Tylenol (Acetaminophen) 325 Mg Tablet 650 Mg PO PRN Q4HRS PRN I have reviewed the current psychotropics carefully including drug interactions. Risk benefit ratio favors no change other than as noted in my dictated progress note. Diagnosis: Problems: (1) Anxiety disorder (2) Mild cognitive disorder (3) Major depressive disorder, recurrent episode (4) Impulse control disorder ANTONIA BAILEY MD Sep 23, 2018 19:01
[2018-09-23] MEDS: ATORVASTATIN CALCIUM 20 MG TABLET PO SCH (20:38)
[2018-09-23] MEDS: QUEtiapine 25 MG TABLET. PO SCH (20:39)
[2018-09-23] MEDS: INSULIN GLARGINE 300 UNITS/3 ML INSULN.PEN. SQ SCH (20:40)
[2018-09-24] MEDS: LEVOTHYROXINE 100 MCG TABLET PO SCH (05:39)
[2018-09-24] MEDS: HEPARIN for SUB-Q USE 5,000 UNIT/ML VIAL. SQ SCH ×3 (05:40→18:56)
[2018-09-24 06:16] VITALS: BP 143/83
[2018-09-24] MEDS: MEMANTINE 10 MG TABLET. PO SCH ×2 (07:54→18:55)
[2018-09-24] MEDS: GABAPENTIN 100 MG CAPSULE. PO SCH ×3 (07:54→18:56)
[2018-09-24] MEDS: amLODIPine BESYLATE 5 MG TABLET PO SCH (07:54)
[2018-09-24] MEDS: levETIRAcetam 500 MG TABLET PO SCH ×2 (07:55→18:55)
[2018-09-24] MEDS: DULoxetine HCL 60 MG CAPSULE.DR PO SCH (07:55)
[2018-09-24] MEDS: LISINOPRIL 20 MG TABLET PO SCH (07:55)
[2018-09-24] MEDS: ASPIRIN 81 MG TAB.CHEW PO SCH (07:55)
[2018-09-24] MEDS: INSULIN LISPRO 300 UNITS/3 ML INSULN.PEN. SQ SCH ×3 (07:57→17:00)
[2018-09-24] MEDS: buPROPion XL 150 MG TAB.ER.24H PO SCH (07:58)
[2018-09-24] MEDS: LACTOBACILLUS RHAMNOSUS GG 1 CAPSULE. PO SCH ×2 (07:58→18:55)
[2018-09-24 16:41] VITALS: BP 136/82
--- NOTE | 2018-09-24 18:33 | PN ---
DATE: 09/22/2018 PSYCHIATRIC PROGRESS NOTE This late entry 09/22/2018 covers elements not covered in my initial note. SUBJECTIVE: I met with the patient in the evening. The patient slept 5-1/4 hours previous night. She has been somewhat withdrawn, tired, and we will reduce the Seroquel from 75 mg at bedtime down to 50 mg at bedtime. 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 REVIEW OF SYSTEMS: Ambulation impaired, in wheelchair. No CV, , pulmonary, eye system symptoms on review. MENTAL STATUS EXAM: Oriented to herself and situation. Speech has some latency, coherent. Abstraction fair, computation impaired. Mood and affect somewhat withdrawn, but showing improvement. No suicidal ideation. LABORATORY DATA: Reviewed. 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 PLAN: Reduce the Seroquel as above. Rest unchanged from initial note. MAN Han BAILEY MD DR: RAYMON/christen JOB#: [id number] / [id number]
--- NOTE | 2018-09-24 18:34 | PN ---
DATE: 09/23/2018 PSYCHIATRIC PROGRESS NOTE This late entry 09/23/2018 covers elements not covered in my initial note. SUBJECTIVE: I met with the patient in the evening. The patient slept 7-3/4 hours previous night. She has been somewhat withdrawn, less tearful. REVIEW OF SYSTEMS: Ambulation impaired, in wheelchair. No CV, , pulmonary, eye, ENT system symptoms on review. MENTAL STATUS EXAM: Oriented to herself and situation. Speech moderate latency, often responses monosyllabic. Abstraction fair, computation impaired, language function intact. Mood and affect somewhat withdrawn. LABORATORY DATA: Reviewed. IMPRESSION: Major depressive disorder with psychotic features. Rest unchanged. PLAN: No change from initial note. MAN Han BAILEY MD DR: RAYMON/christen JOB#: [id number] / [id number]
[2018-09-24] MEDS: ATORVASTATIN CALCIUM 20 MG TABLET PO SCH (18:55)
[2018-09-24] MEDS: QUEtiapine 25 MG TABLET. PO SCH (18:56)
--- NOTE | 2018-09-24 19:08 | PDOC ---
Exam Note: José Miguel Note: Please also refer to the separate dictated note~for this date of service dictated separately.~Patient seen individually. Discussed the patient with Nursing staff reviewed the chart.~Reviewed interim history and current functioning. Reviewed vital signs,~Labs/ Radiology~and current medications noted below. Continue current treatment with the changes noted in the dictated addendum note Assessment: Vital Signs: Vital Signs Date Time Temp Pulse Resp B/P (MAP) Pulse Ox O2 Delivery O2 Flow Rate FiO2 09/24/18 16:41 97.6 89 20 136/82 (100) 96 09/24/18 06:16 BiPAP/CPAP I&O Intake and Output 09/24/18 07:01 Intake Total 1440 ml Balance 1440 ml Intake Oral 1440 ml Labs: Laboratory Tests Test 09/23/18 19:15 09/24/18 07:26 09/24/18 11:35 09/24/18 17:54 Glucose (Fingerstick) 239 mg/dL (70-99) H 193 mg/dL (70-99) H 157 mg/dL (70-99) H 259 mg/dL (70-99) H Current Medications: Meds: Current Medications Acetaminophen (Tylenol) 650 mg PRN Q6HRS PRN PO PAIN / TEMP Last administered on 09/22/18at 11:37; Start 08/08/18 at 20:00 Multi-Ingredient Ointment (Analgesic [place]) 1 frank PRN QID PRN TP MUSCLE PAIN Last administered on 09/19/18at 23:33; Start 08/08/18 at 20:00 Al Hydroxide/Mg Hydroxide (Mylanta Plus Xs) 15 ml PRN AFTMEALHC PRN PO DYSPEPSIA; Start 08/08/18 at 20:00 Magnesium Hydroxide (Milk Of Magnesia) 2,400 mg PRN QHS PRN PO CONSTIPATION Last administered on 09/18/18at 19:52; Start 08/08/18 at 20:00 Memantine (Namenda) 10 mg BID PO Last administered on 09/24/18at 18:55; Start 08/08/18 at 22:00 Quetiapine Fumarate (SEROquel) 25 mg DAILY PO Last administered on 09/05/18at 08 :51; Start 08/09/18 at 09:00; Stop 09/05/18 at 11:58; Status DC Quetiapine Fumarate (SEROquel) 75 mg HS PO Last administered on 09/21/18at 20: 38; Start 08/08/18 at 22:00; Stop 09/22/18 at 18:49; Status DC Venlafaxine HCl (Effexor) 50 mg TID PO Last administered on 08/10/18at 13:40; Start 08/09/18 at 09:00; Stop 08/10/18 at 17:54; Status DC Acetaminophen (Tylenol) 650 mg PRN Q4HRS PRN PO PAIN / TEMP; Start 08/08/18 at 21:30; Status Cancel Levothyroxine Sodium (Synthroid) 100 mcg DAILY06 PO Last administered on at 05:39; Start 08/09/18 at 06:00 Amlodipine Besylate (Norvasc) 5 mg DAILY PO Last administered on 09/24/18 07: 54; Start 08/09/18 at 09:00 Aspirin (Children'S Aspirin) 81 mg DAILY PO Last administered on 09/24/18at 07: 55; Start 08/09/18 at 09:00 Lisinopril (Prinivil) 20 mg DAILY PO Last administered on 09/24/18 07:55; Start 08/09/18 at 09:00 Vitamin D (Vitamin D3) 50,000 unit WEEKLY PO Last administered on 09/19/18at 07 :57; Start 08/15/18 at 09:00 Heparin Sodium (Porcine) (Heparin Sq) 5,000 unit Q8HRS SQ Last administered on 08/27/18at 22:37; Start 08/08/18 at 22:00; Stop 08/27/18 at 23:00; Status DC Levetiracetam (Keppra) 500 mg BID PO Last administered on 09/24/18at 18:55; Start 08/08/18 at 22:00 Atorvastatin Calcium (Lipitor) 20 mg QHS PO Last administered on 09/24/18 18: 55; Start 08/09/18 at 21:00 Insulin Human Lispro (HumaLOG) 0-5 UNITS TIDWMEALS SQ Last administered on 09/05at 09:13; Start 08/09/18 at 08:00; Stop 09/05/18 at 14:16; Status DC Dextrose 12.5 gm PRN Q15MIN PRN IV SEE COMMENTS; Start 08/09/18 at 05:45; Stop 09/05/18 at 14:16; Status DC Duloxetine HCl (Cymbalta) 30 mg DAILY PO Last administered on 08/12/18at 08:06 ; Start 08/11/18 at 09:00; Stop 08/12/18 at 09:02; Status DC Duloxetine HCl (Cymbalta) 60 mg DAILY PO Last administered on 09/24/18at 07:55 ; Start 08/13/18 at 09:00 Cephalexin HCl (Keflex) 500 mg TID PO Last administered on 08/20/18at 19:28; Start 08/11/18 at 09:00; Stop 08/21/18 at 08:59; Status DC Lactobacillus Rhamnosus (Culturelle) 1 cap BID PO Last administered on at 18:55; Start 08/11/18 at 09:00 Levothyroxine Sodium (Synthroid) 100 mcg 1X ONCE PO Last administered on 08/15at 06:23; Start 08/15/18 at 06:30; Stop 08/15/18 at 06:31; Status DC Olanzapine (ZyPREXA ZYDIS) 10 mg PRN BID PRN PO AGITATION; Start 08/24/18 at 17:45; Stop 09/22/18 at 12:01; Status DC Olanzapine (ZyPREXA IM) 5 mg PRN BID PRN IM AGITATION Last administered on at 17:53; Start 08/24/18 at 17:45; Stop 09/22/18 at 12:01; Status DC Cefpodoxime Proxetil (Vantin) 200 mg BID PO Last administered on 08/27/18at 08: 28; Start 08/25/18 at 17:30; Stop 08/27/18 at 17:27; Status DC Gabapentin (Neurontin) 100 mg BID PO Last administered on 09/13/18at 09:05; Start 08/25/18 at 21:00; Stop 09/13/18 at 16:30; Status DC Quetiapine Fumarate (SEROquel) 12.5 mg DAILY16 PO Last administered on at 16:29; Start 08/27/18 at 16:00; Stop 09/16/18 at 16:52; Status DC Heparin Sodium (Porcine) (Heparin Sodium) 5,000 unit Q8HRS SQ Last administered on 09/24/18at 18:56; Start 08/28/18 at 06:00 Ciprofloxacin (Cipro) 500 mg BID PO Last administered on 09/06/18at 08:09; Start 08/27/18 at 21:00; Stop 09/06/18 at 20:59; Status DC Insulin Human Lispro (HumaLOG) 0-9 UNITS TIDWMEALS SQ Last administered on at 17:00; Start 09/05/18 at 17:00 Dextrose 12.5 gm PRN Q15MIN PRN IV SEE COMMENTS; Start 09/05/18 at 14:15 Gabapentin (Neurontin) 200 mg TID PO Last administered on 09/24/18at 18:56; Start 09/13/18 at 21:00 Bupropion HCl (Wellbutrin Xl) 150 mg DAILY PO Last administered on 09/24/18at 07:58; Start 09/17/18 at 09:00 Insulin Glargine (Lantus) 15 units QHS SQ Last administered on 09/23/18at 20:40 ; Start 09/19/18 at 21:00 Olanzapine (ZyPREXA ZYDIS) 2.5 mg PRN Q2HR PRN PO PSYCHOSIS Last administered on 09/22/18at 12:00; Start 09/22/18 at 12:00 Quetiapine Fumarate (SEROquel) 50 mg HS PO Last administered on 09/24/18at 18: 56; Start 09/22/18 at 21:00 Active Scripts Active Reported Seroquel (Quetiapine Fumarate) 25 Mg Tablet 12.5 Mg PO DAILY16 Olanzapine 10 Mg Tablet 10 Mg PO PRN BID PRN Olanzapine Inj (Olanzapine) 10 Mg Vial 5 Mg IM PRN BID PRN Analgesic [place] (Methyl Salicylate/Menthol) 28 Gm Oint...g. 1 Frank TP PRN QID PRN Milk Of Magnesia (Magnesium Hydroxide) 2,400 Mg/10 Ml Oral.susp 2,400 Mg PO PRN QHS PRN Advanced Antacid Liquid (Mag Hydrox/Al Hydrox/Simeth) 355 Ml Oral.susp 15 Ml PO PRN AFTMEALHC PRN Culturelle (Lactobacillus Rhamnosus Gg) 1 Each Cap.sprink 1 Cap PO BID Humalog (Insulin Lispro) 100 Unit/1 Ml Cartridge 0-5 Unit SQ TIDWMEALS Gabapentin 100 Mg Capsule 100 Mg PO BID Cymbalta (Duloxetine Hcl) 60 Mg Capsule.dr 60 Mg PO DAILY Ciprofloxacin Hcl 500 Mg Tablet 500 Mg PO BID Venlafaxine Hcl Er (Venlafaxine Hcl) 150 Mg Tab.er.24 150 Mg PO DAILYWBKFT Quetiapine Fumarate 25 Mg Tablet 25 Mg PO DAILY Seroquel (Quetiapine Fumarate) 25 Mg Tablet 75 Mg PO QHS Namenda (Memantine Hcl) 10 Mg Tablet 10 Mg PO BID Lovastatin 40 Mg Tablet 80 Mg PO QHS Levothyroxine Sodium 100 Mcg Tablet 100 Mcg PO DAILYAC Keppra (Levetiracetam) 500 Mg Tablet 500 Mg PO BID Heparin 5,000 Unit/5 ml-Ns (Heparin Sod,Porcine/0.9 % NaCl) 5,000 Unit/5 Ml Syringe 5,000 Unit IM Q8HRS Vitamin D2 (Ergocalciferol (Vitamin D2)) 50,000 Unit Capsule 50,000 Unit PO WEEKLY Benazepril Hcl 20 Mg Tablet 20 Mg PO DAILY Aspirin 81 Mg Tab.chew 81 Mg PO DAILY Amlodipine Besylate 5 Mg Tablet 5 Mg PO DAILY Tylenol (Acetaminophen) 325 Mg Tablet 650 Mg PO PRN Q4HRS PRN I have reviewed the current psychotropics carefully including drug interactions. Risk benefit ratio favors no change other than as noted in my dictated progress note. Diagnosis: Problems: (1) Anxiety disorder (2) Mild cognitive disorder (3) Major depressive disorder, recurrent episode (4) Impulse control disorder ANTONIA BAILEY MD Sep 24, 2018 19:08
[2018-09-24] MEDS: INSULIN GLARGINE 300 UNITS/3 ML INSULN.PEN. SQ SCH (20:44)
[2018-09-25 05:50] VITALS: BP 139/81
[2018-09-25] MEDS: LEVOTHYROXINE 100 MCG TABLET PO SCH (06:28)
[2018-09-25] MEDS: HEPARIN for SUB-Q USE 5,000 UNIT/ML VIAL. SQ SCH ×2 (06:30→13:45)
[2018-09-25] MEDS: INSULIN LISPRO 300 UNITS/3 ML INSULN.PEN. SQ SCH ×3 (08:23→17:34)
[2018-09-25] MEDS: DULoxetine HCL 60 MG CAPSULE.DR PO SCH (08:24)
[2018-09-25] MEDS: LACTOBACILLUS RHAMNOSUS GG 1 CAPSULE. PO SCH ×2 (08:24→20:11)
[2018-09-25] MEDS: GABAPENTIN 100 MG CAPSULE. PO SCH ×3 (08:24→20:11)
[2018-09-25] MEDS: ASPIRIN 81 MG TAB.CHEW PO SCH (08:24)
[2018-09-25] MEDS: amLODIPine BESYLATE 5 MG TABLET PO SCH (08:24)
[2018-09-25] MEDS: levETIRAcetam 500 MG TABLET PO SCH ×2 (08:24→20:11)
[2018-09-25] MEDS: LISINOPRIL 20 MG TABLET PO SCH (08:24)
[2018-09-25] MEDS: buPROPion XL 150 MG TAB.ER.24H PO SCH (08:24)
[2018-09-25] MEDS: MEMANTINE 10 MG TABLET. PO SCH ×2 (08:25→20:11)
[2018-09-25 16:53] VITALS: BP 94/70
[2018-09-25] MEDS: ATORVASTATIN CALCIUM 20 MG TABLET PO SCH (20:11)
[2018-09-25] MEDS: QUEtiapine 25 MG TABLET. PO SCH (20:12)
[2018-09-25] MEDS: ENOXAPARIN 40 MG/0.4 ML SYRINGE. SQ SCH (20:13)
[2018-09-25] MEDS: INSULIN GLARGINE 300 UNITS/3 ML INSULN.PEN. SQ SCH (20:15)
[2018-09-25] MEDS: MAGNESIUM HYDROXIDE 2,400 MG/30 ML ORAL.SUSP. PO PRN (20:15)
--- NOTE | 2018-09-25 22:52 | PDOC ---
Exam Note: José Miguel Note: Please also refer to the separate dictated note~for this date of service dictated separately.~Patient seen individually. Discussed the patient with Nursing staff reviewed the chart.~Reviewed interim history and current functioning. Reviewed vital signs,~Labs/ Radiology~and current medications noted below. Continue current treatment with the changes noted in the dictated addendum note Assessment: Vital Signs: Vital Signs Date Time Temp Pulse Resp B/P (MAP) Pulse Ox O2 Delivery O2 Flow Rate FiO2 09/25/18 16:53 98.7 93 18 94/70 (78) 98 09/25/18 05:50 BiPAP/CPAP I&O Intake and Output 09/25/18 07:01 Intake Total 1320 ml Balance 1320 ml Intake Oral 1320 ml Labs: Laboratory Tests Test 09/25/18 08:00 09/25/18 11:11 09/25/18 16:48 09/25/18 19:09 Glucose (Fingerstick) 169 mg/dL (70-99) H 159 mg/dL (70-99) H 195 mg/dL (70-99) H 197 mg/dL (70-99) H Current Medications: Meds: Current Medications Acetaminophen (Tylenol) 650 mg PRN Q6HRS PRN PO PAIN / TEMP Last administered on 09/22/18at 11:37; Start 08/08/18 at 20:00 Multi-Ingredient Ointment (Analgesic [place]) 1 frank PRN QID PRN TP MUSCLE PAIN Last administered on 09/19/18at 23:33; Start 08/08/18 at 20:00 Al Hydroxide/Mg Hydroxide (Mylanta Plus Xs) 15 ml PRN AFTMEALHC PRN PO DYSPEPSIA; Start 08/08/18 at 20:00 Magnesium Hydroxide (Milk Of Magnesia) 2,400 mg PRN QHS PRN PO CONSTIPATION Last administered on 09/25/18at 20:15; Start 08/08/18 at 20:00 Memantine (Namenda) 10 mg BID PO Last administered on 09/25/18at 20:11; Start 08/08/18 at 22:00 Quetiapine Fumarate (SEROquel) 25 mg DAILY PO Last administered on 09/05/18at 08 :51; Start 08/09/18 at 09:00; Stop 09/05/18 at 11:58; Status DC Quetiapine Fumarate (SEROquel) 75 mg HS PO Last administered on 09/21/18at 20: 38; Start 08/08/18 at 22:00; Stop 09/22/18 at 18:49; Status DC Venlafaxine HCl (Effexor) 50 mg TID PO Last administered on 08/10/18at 13:40; Start 08/09/18 at 09:00; Stop 08/10/18 at 17:54; Status DC Acetaminophen (Tylenol) 650 mg PRN Q4HRS PRN PO PAIN / TEMP; Start 08/08/18 at 21:30; Status Cancel Levothyroxine Sodium (Synthroid) 100 mcg DAILY06 PO Last administered on at 06:28; Start 08/09/18 at 06:00 Amlodipine Besylate (Norvasc) 5 mg DAILY PO Last administered on 09/25/18 08: 24; Start 08/09/18 at 09:00 Aspirin (Children'S Aspirin) 81 mg DAILY PO Last administered on 09/25/18at 08: 24; Start 08/09/18 at 09:00 Lisinopril (Prinivil) 20 mg DAILY PO Last administered on 09/25/18 08:24; Start 08/09/18 at 09:00 Vitamin D (Vitamin D3) 50,000 unit WEEKLY PO Last administered on 09/19/18at 07 :57; Start 08/15/18 at 09:00 Heparin Sodium (Porcine) (Heparin Sq) 5,000 unit Q8HRS SQ Last administered on 08/27/18at 22:37; Start 08/08/18 at 22:00; Stop 08/27/18 at 23:00; Status DC Levetiracetam (Keppra) 500 mg BID PO Last administered on 09/25/18at 20:11; Start 08/08/18 at 22:00 Atorvastatin Calcium (Lipitor) 20 mg QHS PO Last administered on 09/25/18at 20: 11; Start 08/09/18 at 21:00 Insulin Human Lispro (HumaLOG) 0-5 UNITS TIDWMEALS SQ Last administered on 09/05at 09:13; Start 08/09/18 at 08:00; Stop 09/05/18 at 14:16; Status DC Dextrose 12.5 gm PRN Q15MIN PRN IV SEE COMMENTS; Start 08/09/18 at 05:45; Stop 09/05/18 at 14:16; Status DC Duloxetine HCl (Cymbalta) 30 mg DAILY PO Last administered on 08/12/18at 08:06 ; Start 08/11/18 at 09:00; Stop 08/12/18 at 09:02; Status DC Duloxetine HCl (Cymbalta) 60 mg DAILY PO Last administered on 09/25/18at 08:24 ; Start 08/13/18 at 09:00 Cephalexin HCl (Keflex) 500 mg TID PO Last administered on 08/20/18at 19:28; Start 08/11/18 at 09:00; Stop 08/21/18 at 08:59; Status DC Lactobacillus Rhamnosus (Culturelle) 1 cap BID PO Last administered on at 20:11; Start 08/11/18 at 09:00 Levothyroxine Sodium (Synthroid) 100 mcg 1X ONCE PO Last administered on 08/15at 06:23; Start 08/15/18 at 06:30; Stop 08/15/18 at 06:31; Status DC Olanzapine (ZyPREXA ZYDIS) 10 mg PRN BID PRN PO AGITATION; Start 08/24/18 at 17:45; Stop 09/22/18 at 12:01; Status DC Olanzapine (ZyPREXA IM) 5 mg PRN BID PRN IM AGITATION Last administered on at 17:53; Start 08/24/18 at 17:45; Stop 09/22/18 at 12:01; Status DC Cefpodoxime Proxetil (Vantin) 200 mg BID PO Last administered on 08/27/18at 08: 28; Start 08/25/18 at 17:30; Stop 08/27/18 at 17:27; Status DC Gabapentin (Neurontin) 100 mg BID PO Last administered on 09/13/18at 09:05; Start 08/25/18 at 21:00; Stop 09/13/18 at 16:30; Status DC Quetiapine Fumarate (SEROquel) 12.5 mg DAILY16 PO Last administered on at 16:29; Start 08/27/18 at 16:00; Stop 09/16/18 at 16:52; Status DC Heparin Sodium (Porcine) (Heparin Sodium) 5,000 unit Q8HRS SQ Last administered on 09/25/18at 13:45; Start 08/28/18 at 06:00; Stop 09/25/18 at 18 :16; Status DC Ciprofloxacin (Cipro) 500 mg BID PO Last administered on 09/06/18at 08:09; Start 08/27/18 at 21:00; Stop 09/06/18 at 20:59; Status DC Insulin Human Lispro (HumaLOG) 0-9 UNITS TIDWMEALS SQ Last administered on at 17:34; Start 09/05/18 at 17:00 Dextrose 12.5 gm PRN Q15MIN PRN IV SEE COMMENTS; Start 09/05/18 at 14:15 Gabapentin (Neurontin) 200 mg TID PO Last administered on 09/25/18 20:11; Start 09/13/18 at 21:00 Bupropion HCl (Wellbutrin Xl) 150 mg DAILY PO Last administered on 09/25/18at 08:24; Start 09/17/18 at 09:00 Insulin Glargine (Lantus) 15 units QHS SQ Last administered on 09/25/18at 20:15 ; Start 09/19/18 at 21:00 Olanzapine (ZyPREXA ZYDIS) 2.5 mg PRN Q2HR PRN PO PSYCHOSIS Last administered on 09/22/18at 12:00; Start 09/22/18 at 12:00 Quetiapine Fumarate (SEROquel) 50 mg HS PO Last administered on 09/25/18at 20: 12; Start 09/22/18 at 21:00 Enoxaparin Sodium (Lovenox 40mg Syringe) 40 mg Q24H SQ Last administered on at 20:13; Start 09/25/18 at 21:00 Active Scripts Active Reported Seroquel (Quetiapine Fumarate) 25 Mg Tablet 12.5 Mg PO DAILY16 Olanzapine 10 Mg Tablet 10 Mg PO PRN BID PRN Olanzapine Inj (Olanzapine) 10 Mg Vial 5 Mg IM PRN BID PRN Analgesic [place] (Methyl Salicylate/Menthol) 28 Gm Oint...g. 1 Frank TP PRN QID PRN Milk Of Magnesia (Magnesium Hydroxide) 2,400 Mg/10 Ml Oral.susp 2,400 Mg PO PRN QHS PRN Advanced Antacid Liquid (Mag Hydrox/Al Hydrox/Simeth) 355 Ml Oral.susp 15 Ml PO PRN AFTMEALHC PRN Culturelle (Lactobacillus Rhamnosus Gg) 1 Each Cap.sprink 1 Cap PO BID Humalog (Insulin Lispro) 100 Unit/1 Ml Cartridge 0-5 Unit SQ TIDWMEALS Gabapentin 100 Mg Capsule 100 Mg PO BID Cymbalta (Duloxetine Hcl) 60 Mg Capsule.dr 60 Mg PO DAILY Ciprofloxacin Hcl 500 Mg Tablet 500 Mg PO BID Venlafaxine Hcl Er (Venlafaxine Hcl) 150 Mg Tab.er.24 150 Mg PO DAILYWBKFT Quetiapine Fumarate 25 Mg Tablet 25 Mg PO DAILY Seroquel (Quetiapine Fumarate) 25 Mg Tablet 75 Mg PO QHS Namenda (Memantine Hcl) 10 Mg Tablet 10 Mg PO BID Lovastatin 40 Mg Tablet 80 Mg PO QHS Levothyroxine Sodium 100 Mcg Tablet 100 Mcg PO DAILYAC Keppra (Levetiracetam) 500 Mg Tablet 500 Mg PO BID Heparin 5,000 Unit/5 ml-Ns (Heparin Sod,Porcine/0.9 % NaCl) 5,000 Unit/5 Ml Syringe 5,000 Unit IM Q8HRS Vitamin D2 (Ergocalciferol (Vitamin D2)) 50,000 Unit Capsule 50,000 Unit PO WEEKLY Benazepril Hcl 20 Mg Tablet 20 Mg PO DAILY Aspirin 81 Mg Tab.chew 81 Mg PO DAILY Amlodipine Besylate 5 Mg Tablet 5 Mg PO DAILY Tylenol (Acetaminophen) 325 Mg Tablet 650 Mg PO PRN Q4HRS PRN I have reviewed the current psychotropics carefully including drug interactions. Risk benefit ratio favors no change other than as noted in my dictated progress note. Diagnosis: Problems: (1) Anxiety disorder (2) Mild cognitive disorder (3) Major depressive disorder, recurrent episode (4) Impulse control disorder ANTONIA BAILEY MD Sep 25, 2018 22:52
--- NOTE | 2018-09-26 02:40 | PN ---
DATE: 09/24/2018 PSYCHIATRIC PROGRESS NOTE This is a late entry 09/24/2018 covers elements not covered in my initial note. SUBJECTIVE: I met with the patient in the evening. The patient slept 6 hours previous night. The patient has been tearful at times, especially when the [place] was being sung in the unit. In the evening when I met with her, she was again tearful. REVIEW OF SYSTEMS: Ambulation impaired, in wheelchair. No CV, , pulmonary, eye, ENT system symptoms on review. MENTAL STATUS EXAM: Oriented to herself and situation. Speech is coherent, has some latency. Abstraction fair, computation impaired, language function intact. Mood and affect still depressed, withdrawn. LABORATORY DATA: Reviewed. IMPRESSION: Unchanged from initial note. PLAN: No change from initial note. MAN Han BAILEY MD DR: RAYMON/christen JOB#: [id number] / [id number]
[2018-09-26 05:57] VITALS: BP 119/67
[2018-09-26] MEDS: LEVOTHYROXINE 100 MCG TABLET PO SCH (06:11)
[2018-09-26 07:21] LABS: BASO % 1 % (0-3); EOS # 0.2 x10^3/uL (0.0-0.7); EOS % 3 % (0-3); HEMATOCRIT 33.6 % (36.0-47.0); HEMOGLOBIN 11.3 g/dL (12.0-15.5); LYMPH % 26 % (24-48); MEAN CORPUSCULAR HEMOGLOBIN 32 pg (25-35); MEAN CORPUSCULAR HGB CONC 34 g/dL (31-37); MEAN CORPUSCULAR VOLUME 94 fL (79-100); MONO # 0.5 x10^3/uL (0.0-1.1); MONO % 7 % (0-9); NEUT # 4.8 x10^3uL (1.8-7.7); NEUT % 64 % (31-73); PLATELET COUNT 229 x10^3/uL (140-400); RED BLOOD COUNT 3.59 x10^6/uL (3.50-5.40); RED CELL DISTRIBUTION WIDTH 14.6 % (11.5-14.5); WHITE BLOOD COUNT 7.6 x10^3/uL (4.0-11.0)
[2018-09-26 07:22] LABS: ALBUMIN/GLOBULIN RATIO 0.7 (1.0-1.7); CALCIUM 9.3 mg/dL (8.5-10.1); CREATININE 0.8 mg/dL (0.6-1.0); GFR 69.9; TOTAL BILIRUBIN 0.5 mg/dL (0.2-1.0); TOTAL PROTEIN 7.1 g/dL (6.4-8.2)
[2018-09-26] MEDS: INSULIN LISPRO 300 UNITS/3 ML INSULN.PEN. SQ SCH ×3 (07:57→17:07)
[2018-09-26] MEDS: levETIRAcetam 500 MG TABLET PO SCH ×2 (08:04→21:03)
[2018-09-26] MEDS: LACTOBACILLUS RHAMNOSUS GG 1 CAPSULE. PO SCH ×2 (08:04→21:03)
[2018-09-26] MEDS: LISINOPRIL 20 MG TABLET PO SCH (08:05)
[2018-09-26] MEDS: amLODIPine BESYLATE 5 MG TABLET PO SCH (08:05)
[2018-09-26] MEDS: ASPIRIN 81 MG TAB.CHEW PO SCH (08:05)
[2018-09-26] MEDS: buPROPion XL 150 MG TAB.ER.24H PO SCH (08:05)
[2018-09-26] MEDS: MEMANTINE 10 MG TABLET. PO SCH ×2 (08:05→21:03)
[2018-09-26] MEDS: DULoxetine HCL 60 MG CAPSULE.DR PO SCH (08:05)
[2018-09-26] MEDS: GABAPENTIN 100 MG CAPSULE. PO SCH ×3 (08:07→21:07)
[2018-09-26] MEDS: CHOLECALCIFEROL (VITAMIN D3) 50,000 UNIT CAPSULE PO SCH (12:35)
[2018-09-26 16:15] VITALS: BP 124/76
[2018-09-26] MEDS: QUEtiapine 25 MG TABLET. PO SCH (21:03)
[2018-09-26] MEDS: ATORVASTATIN CALCIUM 20 MG TABLET PO SCH (21:03)
[2018-09-26] MEDS: INSULIN GLARGINE 300 UNITS/3 ML INSULN.PEN. SQ SCH (21:05)
[2018-09-26] MEDS: ENOXAPARIN 40 MG/0.4 ML SYRINGE. SQ SCH (21:07)
--- NOTE | 2018-09-26 22:50 | PDOC ---
Exam Note: José Miguel Note: Please also refer to the separate dictated note~for this date of service dictated separately.~Patient seen individually. Discussed the patient with Nursing staff reviewed the chart.~Reviewed interim history and current functioning. Reviewed vital signs,~Labs/ Radiology~and current medications noted below. Continue current treatment with the changes noted in the dictated addendum note Assessment: Vital Signs: Vital Signs Date Time Temp Pulse Resp B/P (MAP) Pulse Ox O2 Delivery O2 Flow Rate FiO2 09/26/18 16:15 97.3 72 20 124/76 (92) 95 09/25/18 05:50 BiPAP/CPAP I&O Intake and Output 09/26/18 07:01 Intake Total 880 ml Balance 880 ml Intake Oral 880 ml Labs: Laboratory Tests Test 09/26/18 06:34 09/26/18 07:33 09/26/18 12:12 09/26/18 16:49 White Blood Count 7.6 x10^3/uL (4.0-11.0) Red Blood Count 3.59 x10^6/uL (3.50-5.40) Hemoglobin 11.3 g/dL (12.0-15.5) L Hematocrit 33.6 % (36.0-47.0) L Mean Corpuscular Volume 94 fL (79-100) Mean Corpuscular Hemoglobin 32 pg (25-35) Mean Corpuscular Hemoglobin Concent 34 g/dL (31-37) Red Cell Distribution Width 14.6 % (11.5-14.5) H Platelet Count 229 x10^3/uL (140-400) Neutrophils (%) (Auto) 64 % (31-73) Lymphocytes (%) (Auto) 26 % (24-48) Monocytes (%) (Auto) 7 % (0-9) Eosinophils (%) (Auto) 3 % (0-3) Basophils (%) (Auto) 1 % (0-3) Neutrophils # (Auto) 4.8 x10^3uL (1.8-7.7) Lymphocytes # (Auto) 2.0 x10^3/uL (1.0-4.8) Monocytes # (Auto) 0.5 x10^3/uL (0.0-1.1) Eosinophils # (Auto) 0.2 x10^3/uL (0.0-0.7) Basophils # (Auto) 0.0 x10^3/uL (0.0-0.2) Sodium Level 138 mmol/L (136-145) Potassium Level 4.0 mmol/L (3.5-5.1) Chloride Level 100 mmol/L (98-107) Carbon Dioxide Level 31 mmol/L (21-32) Anion Gap 7 (6-14) Blood Urea Nitrogen 20 mg/dL (7-20) Creatinine 0.8 mg/dL (0.6-1.0) Estimated GFR (Cockcroft-Gault) 69.9 BUN/Creatinine Ratio 25 (6-20) H Glucose Level 164 mg/dL (70-99) H Calcium Level 9.3 mg/dL (8.5-10.1) Total Bilirubin 0.5 mg/dL (0.2-1.0) Aspartate Amino Transferase (AST) 10 U/L (15-37) L Alanine Aminotransferase (ALT) 16 U/L (14-59) Alkaline Phosphatase 98 U/L (46-116) Total Protein 7.1 g/dL (6.4-8.2) Albumin 3.0 g/dL (3.4-5.0) L Albumin/Globulin Ratio 0.7 (1.0-1.7) L Glucose (Fingerstick) 149 mg/dL (70-99) H 150 mg/dL (70-99) H 165 mg/dL (70-99) H Test 09/26/18 19:12 Glucose (Fingerstick) 200 mg/dL (70-99) H Current Medications: Meds: Current Medications Acetaminophen (Tylenol) 650 mg PRN Q6HRS PRN PO PAIN / TEMP Last administered on 09/22/18at 11:37; Start 08/08/18 at 20:00 Multi-Ingredient Ointment (Analgesic [place]) 1 frank PRN QID PRN TP MUSCLE PAIN Last administered on 09/19/18at 23:33; Start 08/08/18 at 20:00 Al Hydroxide/Mg Hydroxide (Mylanta Plus Xs) 15 ml PRN AFTMEALHC PRN PO DYSPEPSIA; Start 08/08/18 at 20:00 Magnesium Hydroxide (Milk Of Magnesia) 2,400 mg PRN QHS PRN PO CONSTIPATION Last administered on 09/25/18at 20:15; Start 08/08/18 at 20:00 Memantine (Namenda) 10 mg BID PO Last administered on 09/26/18 21:03; Start 08/08/18 at 22:00 Quetiapine Fumarate (SEROquel) 25 mg DAILY PO Last administered on 09/05/18at 08 :51; Start 08/09/18 at 09:00; Stop 09/05/18 at 11:58; Status DC Quetiapine Fumarate (SEROquel) 75 mg HS PO Last administered on 09/21/18at 20: 38; Start 08/08/18 at 22:00; Stop 09/22/18 at 18:49; Status DC Venlafaxine HCl (Effexor) 50 mg TID PO Last administered on 08/10/18at 13:40; Start 08/09/18 at 09:00; Stop 08/10/18 at 17:54; Status DC Acetaminophen (Tylenol) 650 mg PRN Q4HRS PRN PO PAIN / TEMP; Start 08/08/18 at 21:30; Status Cancel Levothyroxine Sodium (Synthroid) 100 mcg DAILY06 PO Last administered on at 06:11; Start 08/09/18 at 06:00 Amlodipine Besylate (Norvasc) 5 mg DAILY PO Last administered on 09/26/18at 08: 05; Start 08/09/18 at 09:00 Aspirin (Children'S Aspirin) 81 mg DAILY PO Last administered on 09/26/18at 08: 05; Start 08/09/18 at 09:00 Lisinopril (Prinivil) 20 mg DAILY PO Last administered on 09/26/18at 08:05; Start 08/09/18 at 09:00 Vitamin D (Vitamin D3) 50,000 unit WEEKLY PO Last administered on 09/26/18at 12 :35; Start 08/15/18 at 09:00 Heparin Sodium (Porcine) (Heparin Sq) 5,000 unit Q8HRS SQ Last administered on 08/27/18at 22:37; Start 08/08/18 at 22:00; Stop 08/27/18 at 23:00; Status DC Levetiracetam (Keppra) 500 mg BID PO Last administered on 09/26/18at 21:03; Start 08/08/18 at 22:00 Atorvastatin Calcium (Lipitor) 20 mg QHS PO Last administered on 09/26/18at 21: 03; Start 08/09/18 at 21:00 Insulin Human Lispro (HumaLOG) 0-5 UNITS TIDWMEALS SQ Last administered on 09/05at 09:13; Start 08/09/18 at 08:00; Stop 09/05/18 at 14:16; Status DC Dextrose 12.5 gm PRN Q15MIN PRN IV SEE COMMENTS; Start 08/09/18 at 05:45; Stop 09/05/18 at 14:16; Status DC Duloxetine HCl (Cymbalta) 30 mg DAILY PO Last administered on 08/12/18at 08:06 ; Start 08/11/18 at 09:00; Stop 08/12/18 at 09:02; Status DC Duloxetine HCl (Cymbalta) 60 mg DAILY PO Last administered on 09/26/18at 08:05 ; Start 08/13/18 at 09:00 Cephalexin HCl (Keflex) 500 mg TID PO Last administered on 08/20/18at 19:28; Start 08/11/18 at 09:00; Stop 08/21/18 at 08:59; Status DC Lactobacillus Rhamnosus (Culturelle) 1 cap BID PO Last administered on at 21:03; Start 08/11/18 at 09:00 Levothyroxine Sodium (Synthroid) 100 mcg 1X ONCE PO Last administered on 08/15at 06:23; Start 08/15/18 at 06:30; Stop 08/15/18 at 06:31; Status DC Olanzapine (ZyPREXA ZYDIS) 10 mg PRN BID PRN PO AGITATION; Start 08/24/18 at 17:45; Stop 09/22/18 at 12:01; Status DC Olanzapine (ZyPREXA IM) 5 mg PRN BID PRN IM AGITATION Last administered on at 17:53; Start 08/24/18 at 17:45; Stop 09/22/18 at 12:01; Status DC Cefpodoxime Proxetil (Vantin) 200 mg BID PO Last administered on 08/27/18at 08: 28; Start 08/25/18 at 17:30; Stop 08/27/18 at 17:27; Status DC Gabapentin (Neurontin) 100 mg BID PO Last administered on 09/13/18at 09:05; Start 08/25/18 at 21:00; Stop 09/13/18 at 16:30; Status DC Quetiapine Fumarate (SEROquel) 12.5 mg DAILY16 PO Last administered on at 16:29; Start 08/27/18 at 16:00; Stop 09/16/18 at 16:52; Status DC Heparin Sodium (Porcine) (Heparin Sodium) 5,000 unit Q8HRS SQ Last administered on 09/25/18at 13:45; Start 08/28/18 at 06:00; Stop 09/25/18 at 18 :16; Status DC Ciprofloxacin (Cipro) 500 mg BID PO Last administered on 09/06/18at 08:09; Start 08/27/18 at 21:00; Stop 09/06/18 at 20:59; Status DC Insulin Human Lispro (HumaLOG) 0-9 UNITS TIDWMEALS SQ Last administered on at 17:07; Start 09/05/18 at 17:00 Dextrose 12.5 gm PRN Q15MIN PRN IV SEE COMMENTS; Start 09/05/18 at 14:15 Gabapentin (Neurontin) 200 mg TID PO Last administered on 09/26/18at 21:07; Start 09/13/18 at 21:00 Bupropion HCl (Wellbutrin Xl) 150 mg DAILY PO Last administered on 09/26/18at 08:05; Start 09/17/18 at 09:00 Insulin Glargine (Lantus) 15 units QHS SQ Last administered on 09/26/18at 21:05 ; Start 09/19/18 at 21:00 Olanzapine (ZyPREXA ZYDIS) 2.5 mg PRN Q2HR PRN PO PSYCHOSIS Last administered on 09/22/18at 12:00; Start 09/22/18 at 12:00 Quetiapine Fumarate (SEROquel) 50 mg HS PO Last administered on 09/26/18at 21: 03; Start 09/22/18 at 21:00 Enoxaparin Sodium (Lovenox 40mg Syringe) 40 mg Q24H SQ Last administered on at 21:07; Start 09/25/18 at 21:00 Active Scripts Active Reported Seroquel (Quetiapine Fumarate) 25 Mg Tablet 12.5 Mg PO DAILY16 Olanzapine 10 Mg Tablet 10 Mg PO PRN BID PRN Olanzapine Inj (Olanzapine) 10 Mg Vial 5 Mg IM PRN BID PRN Analgesic [place] (Methyl Salicylate/Menthol) 28 Gm Oint...g. 1 Frank TP PRN QID PRN Milk Of Magnesia (Magnesium Hydroxide) 2,400 Mg/10 Ml Oral.susp 2,400 Mg PO PRN QHS PRN Advanced Antacid Liquid (Mag Hydrox/Al Hydrox/Simeth) 355 Ml Oral.susp 15 Ml PO PRN AFTMEALHC PRN Culturelle (Lactobacillus Rhamnosus Gg) 1 Each Cap.sprink 1 Cap PO BID Humalog (Insulin Lispro) 100 Unit/1 Ml Cartridge 0-5 Unit SQ TIDWMEALS Gabapentin 100 Mg Capsule 100 Mg PO BID Cymbalta (Duloxetine Hcl) 60 Mg Capsule.dr 60 Mg PO DAILY Ciprofloxacin Hcl 500 Mg Tablet 500 Mg PO BID Venlafaxine Hcl Er (Venlafaxine Hcl) 150 Mg Tab.er.24 150 Mg PO DAILYWBKFT Quetiapine Fumarate 25 Mg Tablet 25 Mg PO DAILY Seroquel (Quetiapine Fumarate) 25 Mg Tablet 75 Mg PO QHS Namenda (Memantine Hcl) 10 Mg Tablet 10 Mg PO BID Lovastatin 40 Mg Tablet 80 Mg PO QHS Levothyroxine Sodium 100 Mcg Tablet 100 Mcg PO DAILYAC Keppra (Levetiracetam) 500 Mg Tablet 500 Mg PO BID Heparin 5,000 Unit/5 ml-Ns (Heparin Sod,Porcine/0.9 % NaCl) 5,000 Unit/5 Ml Syringe 5,000 Unit IM Q8HRS Vitamin D2 (Ergocalciferol (Vitamin D2)) 50,000 Unit Capsule 50,000 Unit PO WEEKLY Benazepril Hcl 20 Mg Tablet 20 Mg PO DAILY Aspirin 81 Mg Tab.chew 81 Mg PO DAILY Amlodipine Besylate 5 Mg Tablet 5 Mg PO DAILY Tylenol (Acetaminophen) 325 Mg Tablet 650 Mg PO PRN Q4HRS PRN I have reviewed the current psychotropics carefully including drug interactions. Risk benefit ratio favors no change other than as noted in my dictated progress note. Diagnosis: Problems: (1) Anxiety disorder (2) Mild cognitive disorder (3) Major depressive disorder, recurrent episode (4) Impulse control disorder ANTONIA BAILEY MD Sep 26, 2018 22:50
[2018-09-27 06:09] VITALS: BP 126/76
[2018-09-27] MEDS: LEVOTHYROXINE 100 MCG TABLET PO SCH (06:37)
[2018-09-27] MEDS: INSULIN LISPRO 300 UNITS/3 ML INSULN.PEN. SQ SCH ×3 (08:00→17:35)
--- NOTE | 2018-09-27 08:15 | PDOC ---
Exam Note: José Miguel Note: S/O: This is a late entry of 09/25/2018. This note covers elements not covered in my initial note. The patient was seen on rounds in the evening of . The patient slept seven three quarter hours previous night. Overall , she has complained of some back pain and leg pain. We will defer to Dr. Anguiano and she is on Percocet for this. ROS: Ambulation impaired in wheelchair. No CV, , pulmonary, eye, ENT system symptoms on review. She is not very verbal. MSE: Oriented to herself and situation. Speech moderate latency. Often response is monosyllabic. Abstraction fair. Computation impaired. Language function intact. Attention span short. Mood and affect withdrawn. She does appear psychotic at times, but less-so than before. Labs: Reviewed. Imp: Bipolar I disorder mixed with psychotic features. Cognitive disorder unspecified versus major neurocognitive disorder Alzheimer, vascular with delusion and depression. Rest unchanged. Plan: No change from initial note. Assessment: Vital Signs: Vital Signs Date Time Temp Pulse Resp B/P (MAP) Pulse Ox O2 Delivery O2 Flow Rate FiO2 09/27/18 06:09 97.0 67 18 126/76 (93) 96 09/25/18 05:50 BiPAP/CPAP I&O Intake and Output 09/27/18 07:01 Intake Total 840 ml Balance 840 ml Intake Oral 840 ml Labs: Laboratory Tests Test 09/26/18 12:12 09/26/18 16:49 09/26/18 19:12 09/27/18 07:05 Glucose (Fingerstick) 150 mg/dL (70-99) H 165 mg/dL (70-99) H 200 mg/dL (70-99) H 130 mg/dL (70-99) H Current Medications: Meds: Current Medications Acetaminophen (Tylenol) 650 mg PRN Q6HRS PRN PO PAIN / TEMP Last administered on 09/22/18at 11:37; Start 08/08/18 at 20:00 Multi-Ingredient Ointment (Analgesic [place]) 1 frank PRN QID PRN TP MUSCLE PAIN Last administered on 09/19/18at 23:33; Start 08/08/18 at 20:00 Al Hydroxide/Mg Hydroxide (Mylanta Plus Xs) 15 ml PRN AFTMEALHC PRN PO DYSPEPSIA; Start 08/08/18 at 20:00 Magnesium Hydroxide (Milk Of Magnesia) 2,400 mg PRN QHS PRN PO CONSTIPATION Last administered on 09/25/18at 20:15; Start 08/08/18 at 20:00 Memantine (Namenda) 10 mg BID PO Last administered on 09/26/18 21:03; Start 08/08/18 at 22:00 Quetiapine Fumarate (SEROquel) 25 mg DAILY PO Last administered on 09/05/18at 08 :51; Start 08/09/18 at 09:00; Stop 09/05/18 at 11:58; Status DC Quetiapine Fumarate (SEROquel) 75 mg HS PO Last administered on 09/21/18at 20: 38; Start 08/08/18 at 22:00; Stop 09/22/18 at 18:49; Status DC Venlafaxine HCl (Effexor) 50 mg TID PO Last administered on 08/10/18at 13:40; Start 08/09/18 at 09:00; Stop 08/10/18 at 17:54; Status DC Acetaminophen (Tylenol) 650 mg PRN Q4HRS PRN PO PAIN / TEMP; Start 08/08/18 at 21:30; Status Cancel Levothyroxine Sodium (Synthroid) 100 mcg DAILY06 PO Last administered on at 06:37; Start 08/09/18 at 06:00 Amlodipine Besylate (Norvasc) 5 mg DAILY PO Last administered on 09/26/18at 08: 05; Start 08/09/18 at 09:00 Aspirin (Children'S Aspirin) 81 mg DAILY PO Last administered on 09/26/18at 08: 05; Start 08/09/18 at 09:00 Lisinopril (Prinivil) 20 mg DAILY PO Last administered on 09/26/18at 08:05; Start 08/09/18 at 09:00 Vitamin D (Vitamin D3) 50,000 unit WEEKLY PO Last administered on 09/26/18at 12 :35; Start 08/15/18 at 09:00 Heparin Sodium (Porcine) (Heparin Sq) 5,000 unit Q8HRS SQ Last administered on 08/27/18at 22:37; Start 08/08/18 at 22:00; Stop 08/27/18 at 23:00; Status DC Levetiracetam (Keppra) 500 mg BID PO Last administered on 09/26/18at 21:03; Start 08/08/18 at 22:00 Atorvastatin Calcium (Lipitor) 20 mg QHS PO Last administered on 09/26/18at 21: 03; Start 08/09/18 at 21:00 Insulin Human Lispro (HumaLOG) 0-5 UNITS TIDWMEALS SQ Last administered on 09/05at 09:13; Start 08/09/18 at 08:00; Stop 09/05/18 at 14:16; Status DC Dextrose 12.5 gm PRN Q15MIN PRN IV SEE COMMENTS; Start 08/09/18 at 05:45; Stop 09/05/18 at 14:16; Status DC Duloxetine HCl (Cymbalta) 30 mg DAILY PO Last administered on 08/12/18at 08:06 ; Start 08/11/18 at 09:00; Stop 08/12/18 at 09:02; Status DC Duloxetine HCl (Cymbalta) 60 mg DAILY PO Last administered on 09/26/18at 08:05 ; Start 08/13/18 at 09:00 Cephalexin HCl (Keflex) 500 mg TID PO Last administered on 08/20/18at 19:28; Start 08/11/18 at 09:00; Stop 08/21/18 at 08:59; Status DC Lactobacillus Rhamnosus (Culturelle) 1 cap BID PO Last administered on at 21:03; Start 08/11/18 at 09:00 Levothyroxine Sodium (Synthroid) 100 mcg 1X ONCE PO Last administered on 08/15at 06:23; Start 08/15/18 at 06:30; Stop 08/15/18 at 06:31; Status DC Olanzapine (ZyPREXA ZYDIS) 10 mg PRN BID PRN PO AGITATION; Start 08/24/18 at 17:45; Stop 09/22/18 at 12:01; Status DC Olanzapine (ZyPREXA IM) 5 mg PRN BID PRN IM AGITATION Last administered on at 17:53; Start 08/24/18 at 17:45; Stop 09/22/18 at 12:01; Status DC Cefpodoxime Proxetil (Vantin) 200 mg BID PO Last administered on 08/27/18at 08: 28; Start 08/25/18 at 17:30; Stop 08/27/18 at 17:27; Status DC Gabapentin (Neurontin) 100 mg BID PO Last administered on 09/13/18at 09:05; Start 08/25/18 at 21:00; Stop 09/13/18 at 16:30; Status DC Quetiapine Fumarate (SEROquel) 12.5 mg DAILY16 PO Last administered on at 16:29; Start 08/27/18 at 16:00; Stop 09/16/18 at 16:52; Status DC Heparin Sodium (Porcine) (Heparin Sodium) 5,000 unit Q8HRS SQ Last administered on 09/25/18at 13:45; Start 08/28/18 at 06:00; Stop 09/25/18 at 18 :16; Status DC Ciprofloxacin (Cipro) 500 mg BID PO Last administered on 09/06/18at 08:09; Start 08/27/18 at 21:00; Stop 09/06/18 at 20:59; Status DC Insulin Human Lispro (HumaLOG) 0-9 UNITS TIDWMEALS SQ Last administered on at 17:07; Start 09/05/18 at 17:00 Dextrose 12.5 gm PRN Q15MIN PRN IV SEE COMMENTS; Start 09/05/18 at 14:15 Gabapentin (Neurontin) 200 mg TID PO Last administered on 09/26/18at 21:07; Start 09/13/18 at 21:00 Bupropion HCl (Wellbutrin Xl) 150 mg DAILY PO Last administered on 09/26/18at 08:05; Start 09/17/18 at 09:00 Insulin Glargine (Lantus) 15 units QHS SQ Last administered on 09/26/18at 21:05 ; Start 09/19/18 at 21:00 Olanzapine (ZyPREXA ZYDIS) 2.5 mg PRN Q2HR PRN PO PSYCHOSIS Last administered on 09/22/18at 12:00; Start 09/22/18 at 12:00 Quetiapine Fumarate (SEROquel) 50 mg HS PO Last administered on 12/27/18at 21: 03; Start 09/22/18 at 21:00 Enoxaparin Sodium (Lovenox 40mg Syringe) 40 mg Q24H SQ Last administered on at 21:07; Start 09/25/18 at 21:00 Active Scripts Active Reported Seroquel (Quetiapine Fumarate) 25 Mg Tablet 12.5 Mg PO DAILY16 Olanzapine 10 Mg Tablet 10 Mg PO PRN BID PRN Olanzapine Inj (Olanzapine) 10 Mg Vial 5 Mg IM PRN BID PRN Analgesic [place] (Methyl Salicylate/Menthol) 28 Gm Oint...g. 1 Frank TP PRN QID PRN Milk Of Magnesia (Magnesium Hydroxide) 2,400 Mg/10 Ml Oral.susp 2,400 Mg PO PRN QHS PRN Advanced Antacid Liquid (Mag Hydrox/Al Hydrox/Simeth) 355 Ml Oral.susp 15 Ml PO PRN AFTMEALHC PRN Culturelle (Lactobacillus Rhamnosus Gg) 1 Each Cap.sprink 1 Cap PO BID Humalog (Insulin Lispro) 100 Unit/1 Ml Cartridge 0-5 Unit SQ TIDWMEALS Gabapentin 100 Mg Capsule 100 Mg PO BID Cymbalta (Duloxetine Hcl) 60 Mg Capsule.dr 60 Mg PO DAILY Ciprofloxacin Hcl 500 Mg Tablet 500 Mg PO BID Venlafaxine Hcl Er (Venlafaxine Hcl) 150 Mg Tab.er.24 150 Mg PO DAILYWBKFT Quetiapine Fumarate 25 Mg Tablet 25 Mg PO DAILY Seroquel (Quetiapine Fumarate) 25 Mg Tablet 75 Mg PO QHS Namenda (Memantine Hcl) 10 Mg Tablet 10 Mg PO BID Lovastatin 40 Mg Tablet 80 Mg PO QHS Levothyroxine Sodium 100 Mcg Tablet 100 Mcg PO DAILYAC Keppra (Levetiracetam) 500 Mg Tablet 500 Mg PO BID Heparin 5,000 Unit/5 ml-Ns (Heparin Sod,Porcine/0.9 % NaCl) 5,000 Unit/5 Ml Syringe 5,000 Unit IM Q8HRS Vitamin D2 (Ergocalciferol (Vitamin D2)) 50,000 Unit Capsule 50,000 Unit PO WEEKLY Benazepril Hcl 20 Mg Tablet 20 Mg PO DAILY Aspirin 81 Mg Tab.chew 81 Mg PO DAILY Amlodipine Besylate 5 Mg Tablet 5 Mg PO DAILY Tylenol (Acetaminophen) 325 Mg Tablet 650 Mg PO PRN Q4HRS PRN I have reviewed the current psychotropics carefully including drug interactions. Risk benefit ratio favors no change other than as noted in my dictated progress note. Diagnosis: Problems: (1) Anxiety disorder (2) Mild cognitive disorder (3) Major depressive disorder, recurrent episode (4) Impulse control disorder ANTONIA BAILEY MD Sep 27, 2018 08:15
[2018-09-27] MEDS: MEMANTINE 10 MG TABLET. PO SCH ×2 (09:35→21:28)
[2018-09-27] MEDS: DULoxetine HCL 60 MG CAPSULE.DR PO SCH (09:35)
[2018-09-27] MEDS: levETIRAcetam 500 MG TABLET PO SCH ×2 (09:35→21:29)
[2018-09-27] MEDS: ENOXAPARIN 40 MG/0.4 ML SYRINGE. SQ SCH (09:35)
[2018-09-27] MEDS: LISINOPRIL 20 MG TABLET PO SCH (09:35)
[2018-09-27] MEDS: buPROPion XL 150 MG TAB.ER.24H PO SCH (09:36)
[2018-09-27] MEDS: ASPIRIN 81 MG TAB.CHEW PO SCH (09:36)
[2018-09-27] MEDS: amLODIPine BESYLATE 5 MG TABLET PO SCH (09:36)
[2018-09-27] MEDS: GABAPENTIN 100 MG CAPSULE. PO SCH ×3 (09:36→21:28)
[2018-09-27] MEDS: LACTOBACILLUS RHAMNOSUS GG 1 CAPSULE. PO SCH ×2 (09:36→21:29)
[2018-09-27 16:45] VITALS: BP 143/84
--- NOTE | 2018-09-27 21:21 | PN ---
DATE: 09/26/2018 PSYCHIATRIC PROGRESS NOTE This late entry 09/26/2018 covers elements not covered in my initial note. SUBJECTIVE: I met with the patient in the evening. The patient slept 5-1/2 hours previous evening. She remains somewhat withdrawn, but does interact in groups. Otherwise stays by herself, but not tearful. REVIEW OF SYSTEMS: Ambulation impaired, in wheelchair. No CV, , pulmonary, eye, ENT system symptoms on review. MENTAL STATUS EXAM: Oriented to herself, situations. Speech has some latency, coherent, often responses monosyllabic. Abstraction fair, computation impaired, language function intact, attention span short. Mood and affect somewhat withdrawn. LABORATORY DATA: Reviewed. IMPRESSION: Major depressive disorder, recurrent, in partial remission; anxiety disorder, unspecified; cognitive disorder, unspecified. Rest unchanged. PLAN: No change from initial note. Maintain Wellbutrin, Seroquel, Namenda, Keppra, Cymbalta, along with Zyprexa p.r.n. ANTONIA BAILEY MD DR: RAYMON/christen JOB#: [id number] / [id number]
[2018-09-27] MEDS: ATORVASTATIN CALCIUM 20 MG TABLET PO SCH (21:28)
[2018-09-27] MEDS: QUEtiapine 25 MG TABLET. PO SCH (21:28)
[2018-09-27] MEDS: INSULIN GLARGINE 300 UNITS/3 ML INSULN.PEN. SQ SCH (22:22)
--- NOTE | 2018-09-27 22:58 | PDOC ---
Exam Note: José Miguel Note: Please also refer to the separate dictated note~for this date of service dictated separately.~Patient seen individually. Discussed the patient with Nursing staff reviewed the chart.~Reviewed interim history and current functioning. Reviewed vital signs,~Labs/ Radiology~and current medications noted below. Continue current treatment with the changes noted in the dictated addendum note Assessment: Vital Signs: Vital Signs Date Time Temp Pulse Resp B/P (MAP) Pulse Ox O2 Delivery O2 Flow Rate FiO2 09/27/18 16:45 98.2 72 16 143/84 (103) 96 Room Air I&O Intake and Output 09/27/18 07:01 Intake Total 840 ml Balance 840 ml Intake Oral 840 ml Labs: Laboratory Tests Test 09/27/18 07:05 09/27/18 12:26 09/27/18 17:07 09/27/18 19:12 Glucose (Fingerstick) 130 mg/dL (70-99) H 171 mg/dL (70-99) H 179 mg/dL (70-99) H 209 mg/dL (70-99) H Test 09/27/18 22:15 Glucose (Fingerstick) 306 mg/dL (70-99) H Current Medications: Meds: Current Medications Acetaminophen (Tylenol) 650 mg PRN Q6HRS PRN PO PAIN / TEMP Last administered on 09/22/18at 11:37; Start 08/08/18 at 20:00 Multi-Ingredient Ointment (Analgesic Dalton) 1 frank PRN QID PRN TP MUSCLE PAIN Last administered on 09/19/18at 23:33; Start 08/08/18 at 20:00 Al Hydroxide/Mg Hydroxide (Mylanta Plus Xs) 15 ml PRN AFTMEALHC PRN PO DYSPEPSIA; Start 08/08/18 at 20:00 Magnesium Hydroxide (Milk Of Magnesia) 2,400 mg PRN QHS PRN PO CONSTIPATION Last administered on 09/25/18at 20:15; Start 08/08/18 at 20:00 Memantine (Namenda) 10 mg BID PO Last administered on 09/27/18at 21:28; Start 08/08/18 at 22:00 Quetiapine Fumarate (SEROquel) 25 mg DAILY PO Last administered on 09/05/18at 08 :51; Start 08/09/18 at 09:00; Stop 09/05/18 at 11:58; Status DC Quetiapine Fumarate (SEROquel) 75 mg HS PO Last administered on 09/21/18at 20: 38; Start 08/08/18 at 22:00; Stop 09/22/18 at 18:49; Status DC Venlafaxine HCl (Effexor) 50 mg TID PO Last administered on 08/10/18 13:40; Start 08/09/18 at 09:00; Stop 08/10/18 at 17:54; Status DC Acetaminophen (Tylenol) 650 mg PRN Q4HRS PRN PO PAIN / TEMP; Start 08/08/18 at 21:30; Status Cancel Levothyroxine Sodium (Synthroid) 100 mcg DAILY06 PO Last administered on 06:37; Start 08/09/18 at 06:00 Amlodipine Besylate (Norvasc) 5 mg DAILY PO Last administered on 09/27/18 09: 36; Start 08/09/18 at 09:00 Aspirin (Children'S Aspirin) 81 mg DAILY PO Last administered on 09/27/18 09: 36; Start 08/09/18 at 09:00 Lisinopril (Prinivil) 20 mg DAILY PO Last administered on 09/27/18 09:35; Start 08/09/18 at 09:00 Vitamin D (Vitamin D3) 50,000 unit WEEKLY PO Last administered on 09/26/18at 12 :35; Start 08/15/18 at 09:00 Heparin Sodium (Porcine) (Heparin Sq) 5,000 unit Q8HRS SQ Last administered on 08/27/18at 22:37; Start 08/08/18 at 22:00; Stop 08/27/18 at 23:00; Status DC Levetiracetam (Keppra) 500 mg BID PO Last administered on 09/27/18 21:29; Start 08/08/18 at 22:00 Atorvastatin Calcium (Lipitor) 20 mg QHS PO Last administered on 09/27/18 21: 28; Start 08/09/18 at 21:00 Insulin Human Lispro (HumaLOG) 0-5 UNITS TIDWMEALS SQ Last administered on 09/05at 09:13; Start 08/09/18 at 08:00; Stop 09/05/18 at 14:16; Status DC Dextrose 12.5 gm PRN Q15MIN PRN IV SEE COMMENTS; Start 08/09/18 at 05:45; Stop 09/05/18 at 14:16; Status DC Duloxetine HCl (Cymbalta) 30 mg DAILY PO Last administered on 08/12/18at 08:06 ; Start 08/11/18 at 09:00; Stop 08/12/18 at 09:02; Status DC Duloxetine HCl (Cymbalta) 60 mg DAILY PO Last administered on 09/27/18at 09:35 ; Start 08/13/18 at 09:00 Cephalexin HCl (Keflex) 500 mg TID PO Last administered on 08/20/18at 19:28; Start 08/11/18 at 09:00; Stop 08/21/18 at 08:59; Status DC Lactobacillus Rhamnosus (Culturelle) 1 cap BID PO Last administered on at 21:29; Start 08/11/18 at 09:00 Levothyroxine Sodium (Synthroid) 100 mcg 1X ONCE PO Last administered on 08/15at 06:23; Start 08/15/18 at 06:30; Stop 08/15/18 at 06:31; Status DC Olanzapine (ZyPREXA ZYDIS) 10 mg PRN BID PRN PO AGITATION; Start 08/24/18 at 17:45; Stop 09/22/18 at 12:01; Status DC Olanzapine (ZyPREXA IM) 5 mg PRN BID PRN IM AGITATION Last administered on at 17:53; Start 08/24/18 at 17:45; Stop 09/22/18 at 12:01; Status DC Cefpodoxime Proxetil (Vantin) 200 mg BID PO Last administered on 08/27/18at 08: 28; Start 08/25/18 at 17:30; Stop 08/27/18 at 17:27; Status DC Gabapentin (Neurontin) 100 mg BID PO Last administered on 09/13/18at 09:05; Start 08/25/18 at 21:00; Stop 09/13/18 at 16:30; Status DC Quetiapine Fumarate (SEROquel) 12.5 mg DAILY16 PO Last administered on at 16:29; Start 08/27/18 at 16:00; Stop 09/16/18 at 16:52; Status DC Heparin Sodium (Porcine) (Heparin Sodium) 5,000 unit Q8HRS SQ Last administered on 09/25/18at 13:45; Start 08/28/18 at 06:00; Stop 09/25/18 at 18 :16; Status DC Ciprofloxacin (Cipro) 500 mg BID PO Last administered on 09/06/18at 08:09; Start 08/27/18 at 21:00; Stop 09/06/18 at 20:59; Status DC Insulin Human Lispro (HumaLOG) 0-9 UNITS TIDWMEALS SQ Last administered on 17:35; Start 09/05/18 at 17:00 Dextrose 12.5 gm PRN Q15MIN PRN IV SEE COMMENTS; Start 09/05/18 at 14:15 Gabapentin (Neurontin) 200 mg TID PO Last administered on 09/27/18 21:28; Start 09/13/18 at 21:00 Bupropion HCl (Wellbutrin Xl) 150 mg DAILY PO Last administered on 09/27/18at 09:36; Start 09/17/18 at 09:00 Insulin Glargine (Lantus) 15 units QHS SQ Last administered on 09/27/18at 22:22 ; Start 09/19/18 at 21:00 Olanzapine (ZyPREXA ZYDIS) 2.5 mg PRN Q2HR PRN PO PSYCHOSIS Last administered on 09/22/18 12:00; Start 09/22/18 at 12:00 Quetiapine Fumarate (SEROquel) 50 mg HS PO Last administered on 09/27/18 21: 28; Start 09/22/18 at 21:00 Enoxaparin Sodium (Lovenox 40mg Syringe) 40 mg Q24H SQ Last administered on 09:35; Start 09/25/18 at 21:00 Active Scripts Active Reported Seroquel (Quetiapine Fumarate) 25 Mg Tablet 12.5 Mg PO DAILY16 Olanzapine 10 Mg Tablet 10 Mg PO PRN BID PRN Olanzapine Inj (Olanzapine) 10 Mg Vial 5 Mg IM PRN BID PRN Analgesic Dalton (Methyl Salicylate/Menthol) 28 Gm Oint...g. 1 Frank TP PRN QID PRN Milk Of Magnesia (Magnesium Hydroxide) 2,400 Mg/10 Ml Oral.susp 2,400 Mg PO PRN QHS PRN Advanced Antacid Liquid (Mag Hydrox/Al Hydrox/Simeth) 355 Ml Oral.susp 15 Ml PO PRN AFTMEALHC PRN Culturelle (Lactobacillus Rhamnosus Gg) 1 Each Cap.sprink 1 Cap PO BID Humalog (Insulin Lispro) 100 Unit/1 Ml Cartridge 0-5 Unit SQ TIDWMEALS Gabapentin 100 Mg Capsule 100 Mg PO BID Cymbalta (Duloxetine Hcl) 60 Mg Capsule.dr 60 Mg PO DAILY Ciprofloxacin Hcl 500 Mg Tablet 500 Mg PO BID Venlafaxine Hcl Er (Venlafaxine Hcl) 150 Mg Tab.er.24 150 Mg PO DAILYWBKFT Quetiapine Fumarate 25 Mg Tablet 25 Mg PO DAILY Seroquel (Quetiapine Fumarate) 25 Mg Tablet 75 Mg PO QHS Namenda (Memantine Hcl) 10 Mg Tablet 10 Mg PO BID Lovastatin 40 Mg Tablet 80 Mg PO QHS Levothyroxine Sodium 100 Mcg Tablet 100 Mcg PO DAILYAC Keppra (Levetiracetam) 500 Mg Tablet 500 Mg PO BID Heparin 5,000 Unit/5 ml-Ns (Heparin Sod,Porcine/0.9 % NaCl) 5,000 Unit/5 Ml Syringe 5,000 Unit IM Q8HRS Vitamin D2 (Ergocalciferol (Vitamin D2)) 50,000 Unit Capsule 50,000 Unit PO WEEKLY Benazepril Hcl 20 Mg Tablet 20 Mg PO DAILY Aspirin 81 Mg Tab.chew 81 Mg PO DAILY Amlodipine Besylate 5 Mg Tablet 5 Mg PO DAILY Tylenol (Acetaminophen) 325 Mg Tablet 650 Mg PO PRN Q4HRS PRN I have reviewed the current psychotropics carefully including drug interactions. Risk benefit ratio favors no change other than as noted in my dictated progress note. Diagnosis: Problems: (1) Anxiety disorder (2) Mild cognitive disorder (3) Major depressive disorder, recurrent episode (4) Impulse control disorder ANTONIA BAILEY MD Sep 27, 2018 22:58
[2018-09-28 05:49] VITALS: BP 119/69
[2018-09-28] MEDS: LEVOTHYROXINE 100 MCG TABLET PO SCH (06:19)
[2018-09-28] MEDS: LACTOBACILLUS RHAMNOSUS GG 1 CAPSULE. PO SCH ×2 (08:28→20:28)
[2018-09-28] MEDS: buPROPion XL 150 MG TAB.ER.24H PO SCH (08:28)
[2018-09-28] MEDS: ASPIRIN 81 MG TAB.CHEW PO SCH (08:28)
[2018-09-28] MEDS: DULoxetine HCL 60 MG CAPSULE.DR PO SCH (08:28)
[2018-09-28] MEDS: GABAPENTIN 100 MG CAPSULE. PO SCH ×3 (08:28→20:28)
[2018-09-28] MEDS: MEMANTINE 10 MG TABLET. PO SCH ×2 (08:29→20:28)
[2018-09-28] MEDS: LISINOPRIL 20 MG TABLET PO SCH (08:29)
[2018-09-28] MEDS: amLODIPine BESYLATE 5 MG TABLET PO SCH (08:29)
[2018-09-28] MEDS: levETIRAcetam 500 MG TABLET PO SCH ×2 (08:29→20:28)
[2018-09-28] MEDS: INSULIN LISPRO 300 UNITS/3 ML INSULN.PEN. SQ SCH ×3 (09:17→18:10)
[2018-09-28 15:50] VITALS: BP 132/77
[2018-09-28] MEDS: QUEtiapine 25 MG TABLET. PO SCH (20:28)
[2018-09-28] MEDS: ATORVASTATIN CALCIUM 20 MG TABLET PO SCH (20:29)
[2018-09-28] MEDS: INSULIN GLARGINE 300 UNITS/3 ML INSULN.PEN. SQ SCH (20:30)
[2018-09-28] MEDS: ENOXAPARIN 40 MG/0.4 ML SYRINGE. SQ SCH (20:32)
--- NOTE | 2018-09-28 22:09 | PDOC ---
Exam Note: José Miguel Note: Please also refer to the separate dictated note~for this date of service dictated separately.~Patient seen individually. Discussed the patient with Nursing staff reviewed the chart.~Reviewed interim history and current functioning. Reviewed vital signs,~Labs/ Radiology~and current medications noted below. Continue current treatment with the changes noted in the dictated addendum note Assessment: Vital Signs: Vital Signs Date Time Temp Pulse Resp B/P (MAP) Pulse Ox O2 Delivery O2 Flow Rate FiO2 09/28/18 15:50 97.0 84 20 132/77 (95) 94 Room Air I&O Intake and Output 09/28/18 07:01 Intake Total 960 ml Balance 960 ml Intake Oral 960 ml # Voids 1 # Bowel Movements 1 Labs: Laboratory Tests Test 09/27/18 22:15 09/28/18 07:08 09/28/18 11:47 09/28/18 16:33 Glucose (Fingerstick) 306 mg/dL (70-99) H 214 mg/dL (70-99) H 196 mg/dL (70-99) H 269 mg/dL (70-99) H Test 09/28/18 19:37 Glucose (Fingerstick) 144 mg/dL (70-99) H Current Medications: Meds: Current Medications Acetaminophen (Tylenol) 650 mg PRN Q6HRS PRN PO PAIN / TEMP Last administered on 09/22/18at 11:37; Start 08/08/18 at 20:00 Multi-Ingredient Ointment (Analgesic Mil[place]) 1 frank PRN QID PRN TP MUSCLE PAIN Last administered on 09/19/18at 23:33; Start 08/08/18 at 20:00 Al Hydroxide/Mg Hydroxide (Mylanta Plus Xs) 15 ml PRN AFTMEALHC PRN PO DYSPEPSIA; Start 08/08/18 at 20:00 Magnesium Hydroxide (Milk Of Magnesia) 2,400 mg PRN QHS PRN PO CONSTIPATION Last administered on 09/25/18at 20:15; Start 08/08/18 at 20:00 Memantine (Namenda) 10 mg BID PO Last administered on 09/28/18at 20:28; Start 08/08/18 at 22:00 Quetiapine Fumarate (SEROquel) 25 mg DAILY PO Last administered on 09/05/18at 08 :51; Start 08/09/18 at 09:00; Stop 09/05/18 at 11:58; Status DC Quetiapine Fumarate (SEROquel) 75 mg HS PO Last administered on 09/21/18at 20: 38; Start 08/08/18 at 22:00; Stop 09/22/18 at 18:49; Status DC Venlafaxine HCl (Effexor) 50 mg TID PO Last administered on 08/10/18at 13:40; Start 08/09/18 at 09:00; Stop 08/10/18 at 17:54; Status DC Acetaminophen (Tylenol) 650 mg PRN Q4HRS PRN PO PAIN / TEMP; Start 08/08/18 at 21:30; Status Cancel Levothyroxine Sodium (Synthroid) 100 mcg DAILY06 PO Last administered on 06:19; Start 08/09/18 at 06:00 Amlodipine Besylate (Norvasc) 5 mg DAILY PO Last administered on 09/28/18 08: 29; Start 08/09/18 at 09:00 Aspirin (Children'S Aspirin) 81 mg DAILY PO Last administered on 09/28/18 08: 28; Start 08/09/18 at 09:00 Lisinopril (Prinivil) 20 mg DAILY PO Last administered on 09/28/18 08:29; Start 08/09/18 at 09:00 Vitamin D (Vitamin D3) 50,000 unit WEEKLY PO Last administered on 09/26/18at 12 :35; Start 08/15/18 at 09:00 Heparin Sodium (Porcine) (Heparin Sq) 5,000 unit Q8HRS SQ Last administered on 08/27/18at 22:37; Start 08/08/18 at 22:00; Stop 08/27/18 at 23:00; Status DC Levetiracetam (Keppra) 500 mg BID PO Last administered on 09/28/18 20:28; Start 08/08/18 at 22:00 Atorvastatin Calcium (Lipitor) 20 mg QHS PO Last administered on 09/28/18 20: 29; Start 08/09/18 at 21:00 Insulin Human Lispro (HumaLOG) 0-5 UNITS TIDWMEALS SQ Last administered on 09/05 09:13; Start 08/09/18 at 08:00; Stop 09/05/18 at 14:16; Status DC Dextrose 12.5 gm PRN Q15MIN PRN IV SEE COMMENTS; Start 08/09/18 at 05:45; Stop 09/05/18 at 14:16; Status DC Duloxetine HCl (Cymbalta) 30 mg DAILY PO Last administered on 08/12/18at 08:06 ; Start 08/11/18 at 09:00; Stop 08/12/18 at 09:02; Status DC Duloxetine HCl (Cymbalta) 60 mg DAILY PO Last administered on 09/28/18at 08:28 ; Start 08/13/18 at 09:00; Stop 09/28/18 at 19:49; Status DC Cephalexin HCl (Keflex) 500 mg TID PO Last administered on 08/20/18at 19:28; Start 08/11/18 at 09:00; Stop 08/21/18 at 08:59; Status DC Lactobacillus Rhamnosus (Culturelle) 1 cap BID PO Last administered on at 20:28; Start 08/11/18 at 09:00 Levothyroxine Sodium (Synthroid) 100 mcg 1X ONCE PO Last administered on 08/15at 06:23; Start 08/15/18 at 06:30; Stop 08/15/18 at 06:31; Status DC Olanzapine (ZyPREXA ZYDIS) 10 mg PRN BID PRN PO AGITATION; Start 08/24/18 at 17:45; Stop 09/22/18 at 12:01; Status DC Olanzapine (ZyPREXA IM) 5 mg PRN BID PRN IM AGITATION Last administered on at 17:53; Start 08/24/18 at 17:45; Stop 09/22/18 at 12:01; Status DC Cefpodoxime Proxetil (Vantin) 200 mg BID PO Last administered on 08/27/18at 08: 28; Start 08/25/18 at 17:30; Stop 08/27/18 at 17:27; Status DC Gabapentin (Neurontin) 100 mg BID PO Last administered on 09/13/18at 09:05; Start 08/25/18 at 21:00; Stop 09/13/18 at 16:30; Status DC Quetiapine Fumarate (SEROquel) 12.5 mg DAILY16 PO Last administered on at 16:29; Start 08/27/18 at 16:00; Stop 09/16/18 at 16:52; Status DC Heparin Sodium (Porcine) (Heparin Sodium) 5,000 unit Q8HRS SQ Last administered on 09/25/18at 13:45; Start 08/28/18 at 06:00; Stop 09/25/18 at 18 :16; Status DC Ciprofloxacin (Cipro) 500 mg BID PO Last administered on 09/06/18at 08:09; Start 08/27/18 at 21:00; Stop 09/06/18 at 20:59; Status DC Insulin Human Lispro (HumaLOG) 0-9 UNITS TIDWMEALS SQ Last administered on 18:10; Start 09/05/18 at 17:00 Dextrose 12.5 gm PRN Q15MIN PRN IV SEE COMMENTS; Start 09/05/18 at 14:15 Gabapentin (Neurontin) 200 mg TID PO Last administered on 09/28/18at 20:28; Start 09/13/18 at 21:00 Bupropion HCl (Wellbutrin Xl) 150 mg DAILY PO Last administered on 09/28/18 08:28; Start 09/17/18 at 09:00 Insulin Glargine (Lantus) 15 units QHS SQ Last administered on 09/28/18at 20:30 ; Start 09/19/18 at 21:00 Olanzapine (ZyPREXA ZYDIS) 2.5 mg PRN Q2HR PRN PO PSYCHOSIS Last administered on 09/22/18at 12:00; Start 09/22/18 at 12:00 Quetiapine Fumarate (SEROquel) 50 mg HS PO Last administered on 09/27/18at 21: 28; Start 09/22/18 at 21:00; Stop 09/28/18 at 19:49; Status DC Enoxaparin Sodium (Lovenox 40mg Syringe) 40 mg Q24H SQ Last administered on at 20:32; Start 09/25/18 at 21:00 Duloxetine HCl (Cymbalta) 60 mg HS PO ; Start 09/29/18 at 21:00 Quetiapine Fumarate (SEROquel) 25 mg HS PO Last administered on 09/28/18at 20: 28; Start 09/28/18 at 21:00 Active Scripts Active Reported Seroquel (Quetiapine Fumarate) 25 Mg Tablet 12.5 Mg PO DAILY16 Olanzapine 10 Mg Tablet 10 Mg PO PRN BID PRN Olanzapine Inj (Olanzapine) 10 Mg Vial 5 Mg IM PRN BID PRN Analgesic [place] (Methyl Salicylate/Menthol) 28 Gm Oint...g. 1 Frank TP PRN QID PRN Milk Of Magnesia (Magnesium Hydroxide) 2,400 Mg/10 Ml Oral.susp 2,400 Mg PO PRN QHS PRN Advanced Antacid Liquid (Mag Hydrox/Al Hydrox/Simeth) 355 Ml Oral.susp 15 Ml PO PRN AFTMEALHC PRN Culturelle (Lactobacillus Rhamnosus Gg) 1 Each Cap.sprink 1 Cap PO BID Humalog (Insulin Lispro) 100 Unit/1 Ml Cartridge 0-5 Unit SQ TIDWMEALS Gabapentin 100 Mg Capsule 100 Mg PO BID Cymbalta (Duloxetine Hcl) 60 Mg Capsule.dr 60 Mg PO DAILY Ciprofloxacin Hcl 500 Mg Tablet 500 Mg PO BID Venlafaxine Hcl Er (Venlafaxine Hcl) 150 Mg Tab.er.24 150 Mg PO DAILYWBKFT Quetiapine Fumarate 25 Mg Tablet 25 Mg PO DAILY Seroquel (Quetiapine Fumarate) 25 Mg Tablet 75 Mg PO QHS Namenda (Memantine Hcl) 10 Mg Tablet 10 Mg PO BID Lovastatin 40 Mg Tablet 80 Mg PO QHS Levothyroxine Sodium 100 Mcg Tablet 100 Mcg PO DAILYAC Keppra (Levetiracetam) 500 Mg Tablet 500 Mg PO BID Heparin 5,000 Unit/5 ml-Ns (Heparin Sod,Porcine/0.9 % NaCl) 5,000 Unit/5 Ml Syringe 5,000 Unit IM Q8HRS Vitamin D2 (Ergocalciferol (Vitamin D2)) 50,000 Unit Capsule 50,000 Unit PO WEEKLY Benazepril Hcl 20 Mg Tablet 20 Mg PO DAILY Aspirin 81 Mg Tab.chew 81 Mg PO DAILY Amlodipine Besylate 5 Mg Tablet 5 Mg PO DAILY Tylenol (Acetaminophen) 325 Mg Tablet 650 Mg PO PRN Q4HRS PRN I have reviewed the current psychotropics carefully including drug interactions. Risk benefit ratio favors no change other than as noted in my dictated progress note. Diagnosis: Problems: (1) Anxiety disorder (2) Mild cognitive disorder (3) Major depressive disorder, recurrent episode (4) Impulse control disorder ANTONIA BAILEY MD Sep 28, 2018 22:09
[2018-09-28] MEDS: METHYL SALICYLATE/MENTHOL TOPICAL OINTMENT 29GM TUBE. TP PRN (23:29)
[2018-09-29] MEDS: LEVOTHYROXINE 100 MCG TABLET PO SCH (06:21)
[2018-09-29 06:30] VITALS: BP 110/69
[2018-09-29] MEDS: INSULIN LISPRO 300 UNITS/3 ML INSULN.PEN. SQ SCH ×3 (07:44→17:02)
[2018-09-29] MEDS: ASPIRIN 81 MG TAB.CHEW PO SCH (07:46)
[2018-09-29] MEDS: levETIRAcetam 500 MG TABLET PO SCH ×2 (07:47→20:59)
[2018-09-29] MEDS: MEMANTINE 10 MG TABLET. PO SCH ×2 (07:47→21:01)
[2018-09-29] MEDS: LACTOBACILLUS RHAMNOSUS GG 1 CAPSULE. PO SCH ×2 (07:47→20:59)
[2018-09-29] MEDS: GABAPENTIN 100 MG CAPSULE. PO SCH ×3 (07:48→20:59)
[2018-09-29] MEDS: amLODIPine BESYLATE 5 MG TABLET PO SCH (07:48)
[2018-09-29] MEDS: buPROPion XL 150 MG TAB.ER.24H PO SCH (07:49)
[2018-09-29] MEDS: LISINOPRIL 20 MG TABLET PO SCH (07:49)
--- NOTE | 2018-09-29 15:27 | RAD ---
CT of the paranasal sinuses without contrast, 09/29/2018: HISTORY: Sinus pressure Noncontrast scans were obtained with multiplanar reconstructions produced. There is mild mucosal thickening in the ethmoid sinuses, more so on the left. This involves the ethmoid infundibulum of the left ostiomeatal complex. The maxillary and frontal sinuses are clear. There is mild mucosal thickening in both sphenoid sinuses. No underlying bony abnormality is detected. The orbital contents are unremarkable. Incidental note is made of decreased density along the inferior aspect of the right occipital and temporal lobes. There is no associated mass effect. 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 IMPRESSION: 1. Mild mucosal thickening in the ethmoid and sphenoid sinuses. 2. 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 MR scanning would better delineate this process, if clinically indicated. Electronically signed by: Harsh Beauchamp MD (09/29/2018 3:23 PM) [facility]
[2018-09-29 16:18] VITALS: BP 104/63
[2018-09-29] MEDS: QUEtiapine 25 MG TABLET. PO SCH (20:59)
[2018-09-29] MEDS: ATORVASTATIN CALCIUM 20 MG TABLET PO SCH (20:59)
[2018-09-29] MEDS: ENOXAPARIN 40 MG/0.4 ML SYRINGE. SQ SCH (20:59)
[2018-09-29] MEDS: DULoxetine HCL 60 MG CAPSULE.DR PO SCH (21:00)
[2018-09-29] MEDS: INSULIN GLARGINE 300 UNITS/3 ML INSULN.PEN. SQ SCH (21:02)
--- NOTE | 2018-09-29 23:19 | PDOC ---
Exam Note: José Miguel Note: Please also refer to the separate dictated note~for this date of service dictated separately.~Patient seen individually. Discussed the patient with Nursing staff reviewed the chart.~Reviewed interim history and current functioning. Reviewed vital signs,~Labs/ Radiology~and current medications noted below. Continue current treatment with the changes noted in the dictated addendum note Assessment: Vital Signs: Vital Signs Date Time Temp Pulse Resp B/P (MAP) Pulse Ox O2 Delivery O2 Flow Rate FiO2 09/29/18 16:18 97.8 78 18 104/63 (77) 94 09/28/18 15:50 Room Air I&O Intake and Output 09/29/18 07:01 Intake Total 840 ml Balance 840 ml Intake Oral 840 ml Labs: Laboratory Tests Test 09/29/18 07:28 09/29/18 11:22 09/29/18 16:28 09/29/18 19:02 Glucose (Fingerstick) 172 mg/dL (70-99) H 142 mg/dL (70-99) H 223 mg/dL (70-99) H 147 mg/dL (70-99) H Current Medications: Meds: Current Medications Acetaminophen (Tylenol) 650 mg PRN Q6HRS PRN PO PAIN / TEMP Last administered on 09/22/18at 11:37; Start 08/08/18 at 20:00 Multi-Ingredient Ointment (Analgesic [place]) 1 frank PRN QID PRN TP MUSCLE PAIN Last administered on 09/28/18at 23:29; Start 08/08/18 at 20:00 Al Hydroxide/Mg Hydroxide (Mylanta Plus Xs) 15 ml PRN AFTMEALHC PRN PO DYSPEPSIA; Start 08/08/18 at 20:00 Magnesium Hydroxide (Milk Of Magnesia) 2,400 mg PRN QHS PRN PO CONSTIPATION Last administered on 09/25/18at 20:15; Start 08/08/18 at 20:00 Memantine (Namenda) 10 mg BID PO Last administered on 09/29/18at 21:01; Start 08/08/18 at 22:00 Quetiapine Fumarate (SEROquel) 25 mg DAILY PO Last administered on 09/05/18at 08 :51; Start 08/09/18 at 09:00; Stop 09/05/18 at 11:58; Status DC Quetiapine Fumarate (SEROquel) 75 mg HS PO Last administered on 09/21/18at 20: 38; Start 08/08/18 at 22:00; Stop 09/22/18 at 18:49; Status DC Venlafaxine HCl (Effexor) 50 mg TID PO Last administered on 08/10/18at 13:40; Start 08/09/18 at 09:00; Stop 08/10/18 at 17:54; Status DC Acetaminophen (Tylenol) 650 mg PRN Q4HRS PRN PO PAIN / TEMP; Start 08/08/18 at 21:30; Status Cancel Levothyroxine Sodium (Synthroid) 100 mcg DAILY06 PO Last administered on 06:21; Start 08/09/18 at 06:00 Amlodipine Besylate (Norvasc) 5 mg DAILY PO Last administered on 09/29/18 07: 48; Start 08/09/18 at 09:00 Aspirin (Children'S Aspirin) 81 mg DAILY PO Last administered on 09/29/18at 07: 46; Start 08/09/18 at 09:00 Lisinopril (Prinivil) 20 mg DAILY PO Last administered on 09/29/18 07:49; Start 08/09/18 at 09:00 Vitamin D (Vitamin D3) 50,000 unit WEEKLY PO Last administered on 09/26/18at 12 :35; Start 08/15/18 at 09:00 Heparin Sodium (Porcine) (Heparin Sq) 5,000 unit Q8HRS SQ Last administered on 08/27/18at 22:37; Start 08/08/18 at 22:00; Stop 08/27/18 at 23:00; Status DC Levetiracetam (Keppra) 500 mg BID PO Last administered on 09/29/18 20:59; Start 08/08/18 at 22:00 Atorvastatin Calcium (Lipitor) 20 mg QHS PO Last administered on 09/29/18 20: 59; Start 08/09/18 at 21:00 Insulin Human Lispro (HumaLOG) 0-5 UNITS TIDWMEALS SQ Last administered on 09/05at 09:13; Start 08/09/18 at 08:00; Stop 09/05/18 at 14:16; Status DC Dextrose 12.5 gm PRN Q15MIN PRN IV SEE COMMENTS; Start 08/09/18 at 05:45; Stop 09/05/18 at 14:16; Status DC Duloxetine HCl (Cymbalta) 30 mg DAILY PO Last administered on 08/12/18at 08:06 ; Start 08/11/18 at 09:00; Stop 08/12/18 at 09:02; Status DC Duloxetine HCl (Cymbalta) 60 mg DAILY PO Last administered on 09/28/18at 08:28 ; Start 08/13/18 at 09:00; Stop 09/28/18 at 19:49; Status DC Cephalexin HCl (Keflex) 500 mg TID PO Last administered on 08/20/18at 19:28; Start 08/11/18 at 09:00; Stop 08/21/18 at 08:59; Status DC Lactobacillus Rhamnosus (Culturelle) 1 cap BID PO Last administered on at 20:59; Start 08/11/18 at 09:00 Levothyroxine Sodium (Synthroid) 100 mcg 1X ONCE PO Last administered on 08/15at 06:23; Start 08/15/18 at 06:30; Stop 08/15/18 at 06:31; Status DC Olanzapine (ZyPREXA ZYDIS) 10 mg PRN BID PRN PO AGITATION; Start 08/24/18 at 17:45; Stop 09/22/18 at 12:01; Status DC Olanzapine (ZyPREXA IM) 5 mg PRN BID PRN IM AGITATION Last administered on at 17:53; Start 08/24/18 at 17:45; Stop 09/22/18 at 12:01; Status DC Cefpodoxime Proxetil (Vantin) 200 mg BID PO Last administered on 08/27/18at 08: 28; Start 08/25/18 at 17:30; Stop 08/27/18 at 17:27; Status DC Gabapentin (Neurontin) 100 mg BID PO Last administered on 09/13/18at 09:05; Start 08/25/18 at 21:00; Stop 09/13/18 at 16:30; Status DC Quetiapine Fumarate (SEROquel) 12.5 mg DAILY16 PO Last administered on at 16:29; Start 08/27/18 at 16:00; Stop 09/16/18 at 16:52; Status DC Heparin Sodium (Porcine) (Heparin Sodium) 5,000 unit Q8HRS SQ Last administered on 09/25/18at 13:45; Start 08/28/18 at 06:00; Stop 09/25/18 at 18 :16; Status DC Ciprofloxacin (Cipro) 500 mg BID PO Last administered on 09/06/18at 08:09; Start 08/27/18 at 21:00; Stop 09/06/18 at 20:59; Status DC Insulin Human Lispro (HumaLOG) 0-9 UNITS TIDWMEALS SQ Last administered on 17:02; Start 09/05/18 at 17:00 Dextrose 12.5 gm PRN Q15MIN PRN IV SEE COMMENTS; Start 09/05/18 at 14:15 Gabapentin (Neurontin) 200 mg TID PO Last administered on 09/29/18 20:59; Start 09/13/18 at 21:00 Bupropion HCl (Wellbutrin Xl) 150 mg DAILY PO Last administered on 09/29/18at 07:49; Start 09/17/18 at 09:00 Insulin Glargine (Lantus) 15 units QHS SQ Last administered on 09/29/18 21:02 ; Start 09/19/18 at 21:00 Olanzapine (ZyPREXA ZYDIS) 2.5 mg PRN Q2HR PRN PO PSYCHOSIS Last administered on 09/22/18at 12:00; Start 09/22/18 at 12:00 Quetiapine Fumarate (SEROquel) 50 mg HS PO Last administered on 09/27/18at 21: 28; Start 09/22/18 at 21:00; Stop 09/28/18 at 19:49; Status DC Enoxaparin Sodium (Lovenox 40mg Syringe) 40 mg Q24H SQ Last administered on 20:59; Start 09/25/18 at 21:00 Duloxetine HCl (Cymbalta) 60 mg HS PO Last administered on 09/29/18 21:00; Start 09/29/18 at 21:00 Quetiapine Fumarate (SEROquel) 25 mg HS PO Last administered on 09/29/18at 20: 59; Start 09/28/18 at 21:00 Active Scripts Active Reported Seroquel (Quetiapine Fumarate) 25 Mg Tablet 12.5 Mg PO DAILY16 Olanzapine 10 Mg Tablet 10 Mg PO PRN BID PRN Olanzapine Inj (Olanzapine) 10 Mg Vial 5 Mg IM PRN BID PRN Analgesic [place] (Methyl Salicylate/Menthol) 28 Gm Oint...g. 1 Frank TP PRN QID PRN Milk Of Magnesia (Magnesium Hydroxide) 2,400 Mg/10 Ml Oral.susp 2,400 Mg PO PRN QHS PRN Advanced Antacid Liquid (Mag Hydrox/Al Hydrox/Simeth) 355 Ml Oral.susp 15 Ml PO PRN AFTMEALHC PRN Culturelle (Lactobacillus Rhamnosus Gg) 1 Each Cap.sprink 1 Cap PO BID Humalog (Insulin Lispro) 100 Unit/1 Ml Cartridge 0-5 Unit SQ TIDWMEALS Gabapentin 100 Mg Capsule 100 Mg PO BID Cymbalta (Duloxetine Hcl) 60 Mg Capsule.dr 60 Mg PO DAILY Ciprofloxacin Hcl 500 Mg Tablet 500 Mg PO BID Venlafaxine Hcl Er (Venlafaxine Hcl) 150 Mg Tab.er.24 150 Mg PO DAILYWBKFT Quetiapine Fumarate 25 Mg Tablet 25 Mg PO DAILY Seroquel (Quetiapine Fumarate) 25 Mg Tablet 75 Mg PO QHS Namenda (Memantine Hcl) 10 Mg Tablet 10 Mg PO BID Lovastatin 40 Mg Tablet 80 Mg PO QHS Levothyroxine Sodium 100 Mcg Tablet 100 Mcg PO DAILYAC Keppra (Levetiracetam) 500 Mg Tablet 500 Mg PO BID Heparin 5,000 Unit/5 ml-Ns (Heparin Sod,Porcine/0.9 % NaCl) 5,000 Unit/5 Ml Syringe 5,000 Unit IM Q8HRS Vitamin D2 (Ergocalciferol (Vitamin D2)) 50,000 Unit Capsule 50,000 Unit PO WEEKLY Benazepril Hcl 20 Mg Tablet 20 Mg PO DAILY Aspirin 81 Mg Tab.chew 81 Mg PO DAILY Amlodipine Besylate 5 Mg Tablet 5 Mg PO DAILY Tylenol (Acetaminophen) 325 Mg Tablet 650 Mg PO PRN Q4HRS PRN I have reviewed the current psychotropics carefully including drug interactions. Risk benefit ratio favors no change other than as noted in my dictated progress note. Diagnosis: Problems: (1) Anxiety disorder (2) Mild cognitive disorder (3) Major depressive disorder, recurrent episode (4) Impulse control disorder ANTONIA BAILEY MD Sep 29, 2018 23:19
[2018-09-30 05:50] VITALS: BP 121/73
[2018-09-30] MEDS: LEVOTHYROXINE 100 MCG TABLET PO SCH (05:54)
[2018-09-30] MEDS: LISINOPRIL 20 MG TABLET PO SCH (08:19)
[2018-09-30] MEDS: buPROPion XL 150 MG TAB.ER.24H PO SCH (08:19)
[2018-09-30] MEDS: ASPIRIN 81 MG TAB.CHEW PO SCH (08:20)
[2018-09-30] MEDS: levETIRAcetam 500 MG TABLET PO SCH ×2 (08:20→20:43)
[2018-09-30] MEDS: LACTOBACILLUS RHAMNOSUS GG 1 CAPSULE. PO SCH ×2 (08:20→20:43)
[2018-09-30] MEDS: MEMANTINE 10 MG TABLET. PO SCH ×2 (08:20→20:41)
[2018-09-30] MEDS: GABAPENTIN 100 MG CAPSULE. PO SCH ×3 (08:20→20:42)
[2018-09-30] MEDS: amLODIPine BESYLATE 5 MG TABLET PO SCH (08:21)
[2018-09-30] MEDS: INSULIN LISPRO 300 UNITS/3 ML INSULN.PEN. SQ SCH ×4 (08:22→18:19)
[2018-09-30] MEDS: ACETAMINOPHEN 325 MG TABLET PO PRN (13:16)
[2018-09-30 16:58] VITALS: BP 126/75
[2018-09-30] MEDS: DULoxetine HCL 60 MG CAPSULE.DR PO SCH (20:41)
[2018-09-30] MEDS: ATORVASTATIN CALCIUM 20 MG TABLET PO SCH (20:43)
[2018-09-30] MEDS: INSULIN GLARGINE 300 UNITS/3 ML INSULN.PEN. SQ SCH (20:44)
[2018-09-30] MEDS: ENOXAPARIN 40 MG/0.4 ML SYRINGE. SQ SCH (20:48)
[2018-09-30] MEDS: ARIPiprazole 5 MG TABLET PO SCH (20:48)
--- NOTE | 2018-09-30 21:22 | PN ---
DATE: 09/27/2018 PSYCHIATRIC PROGRESS NOTE This late entry 09/27/2018 covers elements not covered in my initial note. SUBJECTIVE: I met with the patient in the evening. The patient slept 6-1/2 hours previous night. She remains somewhat withdrawn at times, tearful, but less so on 09/27/2018. REVIEW OF SYSTEMS: Ambulation impaired with walker. No CV, , pulmonary, eye, ENT system symptoms on review. Reliability fair. MENTAL STATUS EXAM: Oriented to herself and situation. Speech has some latency, low in volume, coherent, abstraction fair, computation impaired, language function intact, attention span short. Mood and affect still somewhat withdrawn. LABORATORY DATA: Reviewed. 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 Rest unchanged. PLAN: No change from initial note and reviewed her progress at treatment team meeting at some length. MAN Han BAILEY MD DR: RAYMON/christen JOB#: [id number] / [id number]
--- NOTE | 2018-09-30 21:37 | RAD ---
PQRS Compliance statement: One or more of the following individualized dose reduction techniques were utilized for this examination: 1. Automated exposure control. 2. Adjustment of the mA and/or kV according to patient size. 3. Use of iterative reconstruction technique. Indication:CT HEAD pt fell out of wheelchair earlier this evening, stats no symptoms TECHNIQUE: CT head without IV contrast COMPARISON:09/29/2018 FINDINGS: No pathologic extra-axial or intra-axial fluid collection. Mild diffuse cerebral atrophy. Stable area of encephalomalacia is seen along the temporal and occipital horn of the right lateral ventricle. No acute intracranial bleed. The basal cisterns are within normal limits. No large scalp hematoma. Orbits are within normal limits. No acute calvarial fracture. The paranasal sinuses and mastoid air cells are clear. IMPRESSION: 1. No acute intracranial bleed or acute calvarial fracture. 2. Stable encephalomalacia along the temporal and occipital horn of the right lateral ventricle. Correlate for history of prior CVA. If concern for acute ischemic stroke is high, please consider MRI brain. Electronically signed by: Herminio Dwyer DO (09/30/2018 9:33 PM) [id number]
--- NOTE | 2018-09-30 22:52 | PDOC ---
Exam Note: José Miguel Note: Please also refer to the separate dictated note~for this date of service dictated separately.~Patient seen individually. Discussed the patient with Nursing staff reviewed the chart.~Reviewed interim history and current functioning. Reviewed vital signs,~Labs/ Radiology~and current medications noted below. Continue current treatment with the changes noted in the dictated addendum note Assessment: Vital Signs: Vital Signs Date Time Temp Pulse Resp B/P (MAP) Pulse Ox O2 Delivery O2 Flow Rate FiO2 09/30/18 16:58 97.8 87 17 126/75 (92) 98 09/28/18 15:50 Room Air I&O Intake and Output 09/30/18 07:01 Intake Total 480 ml Balance 480 ml Intake Oral 480 ml Labs: Laboratory Tests Test 09/30/18 07:36 09/30/18 12:02 09/30/18 16:48 09/30/18 19:04 Glucose (Fingerstick) 137 mg/dL (70-99) H 133 mg/dL (70-99) H 245 mg/dL (70-99) H 204 mg/dL (70-99) H Current Medications: Meds: Current Medications Acetaminophen (Tylenol) 650 mg PRN Q6HRS PRN PO PAIN / TEMP Last administered on 09/30/18at 13:16; Start 08/08/18 at 20:00 Multi-Ingredient Ointment (Analgesic [place]) 1 frank PRN QID PRN TP MUSCLE PAIN Last administered on 09/28/18at 23:29; Start 08/08/18 at 20:00 Al Hydroxide/Mg Hydroxide (Mylanta Plus Xs) 15 ml PRN AFTMEALHC PRN PO DYSPEPSIA; Start 08/08/18 at 20:00 Magnesium Hydroxide (Milk Of Magnesia) 2,400 mg PRN QHS PRN PO CONSTIPATION Last administered on 09/25/18at 20:15; Start 08/08/18 at 20:00 Memantine (Namenda) 10 mg BID PO Last administered on 09/30/18at 20:41; Start 08/08/18 at 22:00 Quetiapine Fumarate (SEROquel) 25 mg DAILY PO Last administered on 09/05/18at 08 :51; Start 08/09/18 at 09:00; Stop 09/05/18 at 11:58; Status DC Quetiapine Fumarate (SEROquel) 75 mg HS PO Last administered on 09/21/18at 20: 38; Start 08/08/18 at 22:00; Stop 09/22/18 at 18:49; Status DC Venlafaxine HCl (Effexor) 50 mg TID PO Last administered on 08/10/18at 13:40; Start 08/09/18 at 09:00; Stop 08/10/18 at 17:54; Status DC Acetaminophen (Tylenol) 650 mg PRN Q4HRS PRN PO PAIN / TEMP; Start 08/08/18 at 21:30; Status Cancel Levothyroxine Sodium (Synthroid) 100 mcg DAILY06 PO Last administered on 05:54; Start 08/09/18 at 06:00 Amlodipine Besylate (Norvasc) 5 mg DAILY PO Last administered on 09/30/18 08: 21; Start 08/09/18 at 09:00 Aspirin (Children'S Aspirin) 81 mg DAILY PO Last administered on 09/30/18at 08: 20; Start 08/09/18 at 09:00 Lisinopril (Prinivil) 20 mg DAILY PO Last administered on 09/30/18 08:19; Start 08/09/18 at 09:00 Vitamin D (Vitamin D3) 50,000 unit WEEKLY PO Last administered on 09/26/18at 12 :35; Start 08/15/18 at 09:00 Heparin Sodium (Porcine) (Heparin Sq) 5,000 unit Q8HRS SQ Last administered on 08/27/18at 22:37; Start 08/08/18 at 22:00; Stop 08/27/18 at 23:00; Status DC Levetiracetam (Keppra) 500 mg BID PO Last administered on 09/30/18 20:43; Start 08/08/18 at 22:00 Atorvastatin Calcium (Lipitor) 20 mg QHS PO Last administered on 09/30/18 20: 43; Start 08/09/18 at 21:00 Insulin Human Lispro (HumaLOG) 0-5 UNITS TIDWMEALS SQ Last administered on 09/05at 09:13; Start 08/09/18 at 08:00; Stop 09/05/18 at 14:16; Status DC Dextrose 12.5 gm PRN Q15MIN PRN IV SEE COMMENTS; Start 08/09/18 at 05:45; Stop 09/05/18 at 14:16; Status DC Duloxetine HCl (Cymbalta) 30 mg DAILY PO Last administered on 08/12/18at 08:06 ; Start 08/11/18 at 09:00; Stop 08/12/18 at 09:02; Status DC Duloxetine HCl (Cymbalta) 60 mg DAILY PO Last administered on 09/28/18at 08:28 ; Start 08/13/18 at 09:00; Stop 09/28/18 at 19:49; Status DC Cephalexin HCl (Keflex) 500 mg TID PO Last administered on 08/20/18at 19:28; Start 08/11/18 at 09:00; Stop 08/21/18 at 08:59; Status DC Lactobacillus Rhamnosus (Culturelle) 1 cap BID PO Last administered on at 20:43; Start 08/11/18 at 09:00 Levothyroxine Sodium (Synthroid) 100 mcg 1X ONCE PO Last administered on 08/15at 06:23; Start 08/15/18 at 06:30; Stop 08/15/18 at 06:31; Status DC Olanzapine (ZyPREXA ZYDIS) 10 mg PRN BID PRN PO AGITATION; Start 08/24/18 at 17:45; Stop 09/22/18 at 12:01; Status DC Olanzapine (ZyPREXA IM) 5 mg PRN BID PRN IM AGITATION Last administered on at 17:53; Start 08/24/18 at 17:45; Stop 09/22/18 at 12:01; Status DC Cefpodoxime Proxetil (Vantin) 200 mg BID PO Last administered on 08/27/18at 08: 28; Start 08/25/18 at 17:30; Stop 08/27/18 at 17:27; Status DC Gabapentin (Neurontin) 100 mg BID PO Last administered on 09/13/18at 09:05; Start 08/25/18 at 21:00; Stop 09/13/18 at 16:30; Status DC Quetiapine Fumarate (SEROquel) 12.5 mg DAILY16 PO Last administered on at 16:29; Start 08/27/18 at 16:00; Stop 09/16/18 at 16:52; Status DC Heparin Sodium (Porcine) (Heparin Sodium) 5,000 unit Q8HRS SQ Last administered on 09/25/18at 13:45; Start 08/28/18 at 06:00; Stop 09/25/18 at 18 :16; Status DC Ciprofloxacin (Cipro) 500 mg BID PO Last administered on 09/06/18at 08:09; Start 08/27/18 at 21:00; Stop 09/06/18 at 20:59; Status DC Insulin Human Lispro (HumaLOG) 0-9 UNITS TIDWMEALS SQ Last administered on 18:19; Start 09/05/18 at 17:00 Dextrose 12.5 gm PRN Q15MIN PRN IV SEE COMMENTS; Start 09/05/18 at 14:15 Gabapentin (Neurontin) 200 mg TID PO Last administered on 09/30/18at 20:42; Start 09/13/18 at 21:00 Bupropion HCl (Wellbutrin Xl) 150 mg DAILY PO Last administered on 09/30/18 08:19; Start 09/17/18 at 09:00 Insulin Glargine (Lantus) 15 units QHS SQ Last administered on 09/30/18 20:44 ; Start 09/19/18 at 21:00 Olanzapine (ZyPREXA ZYDIS) 2.5 mg PRN Q2HR PRN PO PSYCHOSIS Last administered on 09/30/18 13:17; Start 09/22/18 at 12:00 Quetiapine Fumarate (SEROquel) 50 mg HS PO Last administered on 09/27/18at 21: 28; Start 09/22/18 at 21:00; Stop 09/28/18 at 19:49; Status DC Enoxaparin Sodium (Lovenox 40mg Syringe) 40 mg Q24H SQ Last administered on 20:48; Start 09/25/18 at 21:00 Duloxetine HCl (Cymbalta) 60 mg HS PO Last administered on 09/30/18 20:41; Start 09/29/18 at 21:00 Quetiapine Fumarate (SEROquel) 25 mg HS PO Last administered on 09/29/18at 20: 59; Start 09/28/18 at 21:00; Stop 09/30/18 at 17:23; Status DC Aripiprazole (Abilify) 2.5 mg QHS PO Last administered on 09/30/18at 20:48; Start 09/30/18 at 21:00 Active Scripts Active Reported Seroquel (Quetiapine Fumarate) 25 Mg Tablet 12.5 Mg PO DAILY16 Olanzapine 10 Mg Tablet 10 Mg PO PRN BID PRN Olanzapine Inj (Olanzapine) 10 Mg Vial 5 Mg IM PRN BID PRN Analgesic [place] (Methyl Salicylate/Menthol) 28 Gm Oint...g. 1 Frank TP PRN QID PRN Milk Of Magnesia (Magnesium Hydroxide) 2,400 Mg/10 Ml Oral.susp 2,400 Mg PO PRN QHS PRN Advanced Antacid Liquid (Mag Hydrox/Al Hydrox/Simeth) 355 Ml Oral.susp 15 Ml PO PRN AFTMEALHC PRN Culturelle (Lactobacillus Rhamnosus Gg) 1 Each Cap.sprink 1 Cap PO BID Humalog (Insulin Lispro) 100 Unit/1 Ml Cartridge 0-5 Unit SQ TIDWMEALS Gabapentin 100 Mg Capsule 100 Mg PO BID Cymbalta (Duloxetine Hcl) 60 Mg Capsule.dr 60 Mg PO DAILY Ciprofloxacin Hcl 500 Mg Tablet 500 Mg PO BID Venlafaxine Hcl Er (Venlafaxine Hcl) 150 Mg Tab.er.24 150 Mg PO DAILYWBKFT Quetiapine Fumarate 25 Mg Tablet 25 Mg PO DAILY Seroquel (Quetiapine Fumarate) 25 Mg Tablet 75 Mg PO QHS Namenda (Memantine Hcl) 10 Mg Tablet 10 Mg PO BID Lovastatin 40 Mg Tablet 80 Mg PO QHS Levothyroxine Sodium 100 Mcg Tablet 100 Mcg PO DAILYAC Keppra (Levetiracetam) 500 Mg Tablet 500 Mg PO BID Heparin 5,000 Unit/5 ml-Ns (Heparin Sod,Porcine/0.9 % NaCl) 5,000 Unit/5 Ml Syringe 5,000 Unit IM Q8HRS Vitamin D2 (Ergocalciferol (Vitamin D2)) 50,000 Unit Capsule 50,000 Unit PO WEEKLY Benazepril Hcl 20 Mg Tablet 20 Mg PO DAILY Aspirin 81 Mg Tab.chew 81 Mg PO DAILY Amlodipine Besylate 5 Mg Tablet 5 Mg PO DAILY Tylenol (Acetaminophen) 325 Mg Tablet 650 Mg PO PRN Q4HRS PRN I have reviewed the current psychotropics carefully including drug interactions. Risk benefit ratio favors no change other than as noted in my dictated progress note. Diagnosis: Problems: (1) Anxiety disorder (2) Mild cognitive disorder (3) Major depressive disorder, recurrent episode (4) Impulse control disorder ANTONIA BAILEY MD Sep 30, 2018 22:51
--- NOTE | 2018-09-30 23:34 | RAD ---
SHOULDER BILAT 2+V Clinical Indication: bilat shoulder - patient fell out of wheelchair earlier this evening, states they do not hurt Comparison: None. Findings: No acute fracture or dislocation of the shoulders. There is degenerative arthropathy that is mild. Left axillary surgical clips. Visualized upper lungs are clear. Question old Hill-Sachs deformity of the right humeral head. No acute rib abnormality is identified. Soft tissues unremarkable. IMPRESSION: No acute fracture or dislocation. Electronically signed by: Cristian Cruz MD (09/30/2018 11:29 PM) [facility]
--- NOTE | 2018-10-01 01:03 | PN ---
DATE: 09/29/2018 This is a late entry 09/29/2018 covers elements not covered in my initial note. SUBJECTIVE: I met with the patient in the evening. The patient slept 8-1/4 hours previous night, spends much time in bed. Affect is flat, has some facial tremor consequent to anxiety. REVIEW OF SYSTEMS: Ambulation impaired, in wheelchair. No CV, , pulmonary, eye, ENT system symptoms on review. MENTAL STATUS EXAM: Oriented to herself and situation. Speech is moderate latency. Abstraction fair, computation impaired. Otherwise, speech coherent. Insight improved. Mood and affect still withdrawn, depressed. No suicidal ideation, but otherwise depressive, mood is better. LABORATORY DATA: Reviewed. 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 PLAN: No change from initial note. MAN Han BAILEY MD DR: RAYMON/christen JOB#: [id number] / [id number]
--- NOTE | 2018-10-01 02:41 | PN ---
DATE: 09/28/2018 This is a late entry of 09/28/2018 covers elements not covered in my initial note. SUBJECTIVE: I met with the patient in the evening. The patient slept 6-3/4 hours previous evening. She appeared somewhat tired, withdrawn, but less tearful. REVIEW OF SYSTEMS: Ambulation impaired, in wheelchair. No CV, , pulmonary, eye, ENT system symptoms on review. MENTAL STATUS EXAM: Oriented to herself and situation. Speech moderate latency, low in volume. Abstraction fair, computation impaired, language function intact. Mood and affect still depressed. LABORATORY DATA: Reviewed. She is somewhat sedated during the day. We will change the Cymbalta 60 mg in the morning to the nighttime and reduce the nighttime Seroquel from 50 mg down to 25 mg. IMPRESSION: Unchanged from initial note. PLAN: Continue rest unchanged other than above. MAN Han BAILEY MD DR: RAYMON/christen JOB#: [id number] / [id number]
[2018-10-01] MEDS: LEVOTHYROXINE 100 MCG TABLET PO SCH (05:58)
[2018-10-01 06:13] VITALS: BP 142/80
[2018-10-01] MEDS: levETIRAcetam 500 MG TABLET PO SCH ×2 (08:08→21:18)
[2018-10-01] MEDS: LISINOPRIL 20 MG TABLET PO SCH (08:08)
[2018-10-01] MEDS: MEMANTINE 10 MG TABLET. PO SCH ×2 (08:08→21:18)
[2018-10-01] MEDS: LACTOBACILLUS RHAMNOSUS GG 1 CAPSULE. PO SCH ×2 (08:08→21:18)
[2018-10-01] MEDS: ASPIRIN 81 MG TAB.CHEW PO SCH (08:08)
[2018-10-01] MEDS: buPROPion XL 150 MG TAB.ER.24H PO SCH (08:08)
[2018-10-01] MEDS: amLODIPine BESYLATE 5 MG TABLET PO SCH (08:08)
[2018-10-01] MEDS: GABAPENTIN 100 MG CAPSULE. PO SCH ×3 (08:12→21:18)
[2018-10-01] MEDS: INSULIN LISPRO 300 UNITS/3 ML INSULN.PEN. SQ SCH ×3 (08:14→17:37)
[2018-10-01 16:37] VITALS: BP 104/66
[2018-10-01] MEDS: ARIPiprazole 5 MG TABLET PO SCH (21:17)
[2018-10-01] MEDS: ATORVASTATIN CALCIUM 20 MG TABLET PO SCH (21:18)
[2018-10-01] MEDS: DULoxetine HCL 60 MG CAPSULE.DR PO SCH (21:18)
[2018-10-01] MEDS: INSULIN GLARGINE 300 UNITS/3 ML INSULN.PEN. SQ SCH (21:21)
[2018-10-01] MEDS: ENOXAPARIN 40 MG/0.4 ML SYRINGE. SQ SCH (21:22)
--- NOTE | 2018-10-01 23:02 | PDOC ---
Exam Note: José Miguel Note: Please also refer to the separate dictated note~for this date of service dictated separately.~Patient seen individually. Discussed the patient with Nursing staff reviewed the chart.~Reviewed interim history and current functioning. Reviewed vital signs,~Labs/ Radiology~and current medications noted below. Continue current treatment with the changes noted in the dictated addendum note Assessment: Vital Signs: Vital Signs Date Time Temp Pulse Resp B/P (MAP) Pulse Ox O2 Delivery O2 Flow Rate FiO2 10/01/18 16:37 97.0 82 18 104/66 (79) 97 09/28/18 15:50 Room Air I&O Intake and Output 10/01/18 07:01 Intake Total 840 ml Balance 840 ml Intake Oral 840 ml Labs: Laboratory Tests Test 10/01/18 07:19 10/01/18 11:15 10/01/18 17:10 10/01/18 19:45 Glucose (Fingerstick) 160 mg/dL (70-99) H 129 mg/dL (70-99) H 291 mg/dL (70-99) H 251 mg/dL (70-99) H Current Medications: Meds: Current Medications Acetaminophen (Tylenol) 650 mg PRN Q6HRS PRN PO PAIN / TEMP Last administered on 09/30/18at 13:16; Start 08/08/18 at 20:00 Multi-Ingredient Ointment (Analgesic [place]) 1 frank PRN QID PRN TP MUSCLE PAIN Last administered on 09/28/18at 23:29; Start 08/08/18 at 20:00 Al Hydroxide/Mg Hydroxide (Mylanta Plus Xs) 15 ml PRN AFTMEALHC PRN PO DYSPEPSIA; Start 08/08/18 at 20:00 Magnesium Hydroxide (Milk Of Magnesia) 2,400 mg PRN QHS PRN PO CONSTIPATION Last administered on 09/25/18at 20:15; Start 08/08/18 at 20:00 Memantine (Namenda) 10 mg BID PO Last administered on 10/01/18at 21:18; Start at 22:00 Quetiapine Fumarate (SEROquel) 25 mg DAILY PO Last administered on 09/05/18at 08 :51; Start 08/09/18 at 09:00; Stop 09/05/18 at 11:58; Status DC Quetiapine Fumarate (SEROquel) 75 mg HS PO Last administered on 09/21/18at 20: 38; Start 08/08/18 at 22:00; Stop 09/22/18 at 18:49; Status DC Venlafaxine HCl (Effexor) 50 mg TID PO Last administered on 08/10/18at 13:40; Start 08/09/18 at 09:00; Stop 08/10/18 at 17:54; Status DC Acetaminophen (Tylenol) 650 mg PRN Q4HRS PRN PO PAIN / TEMP; Start 08/08/18 at 21:30; Status Cancel Levothyroxine Sodium (Synthroid) 100 mcg DAILY06 PO Last administered on 05:58; Start 08/09/18 at 06:00 Amlodipine Besylate (Norvasc) 5 mg DAILY PO Last administered on 10/01/18 08:08 ; Start 08/09/18 at 09:00 Aspirin (Children'S Aspirin) 81 mg DAILY PO Last administered on 10/01/18 08:08 ; Start 08/09/18 at 09:00 Lisinopril (Prinivil) 20 mg DAILY PO Last administered on 10/01/18 08:08; Start 08/09/18 at 09:00 Vitamin D (Vitamin D3) 50,000 unit WEEKLY PO Last administered on 09/26/18at 12 :35; Start 08/15/18 at 09:00 Heparin Sodium (Porcine) (Heparin Sq) 5,000 unit Q8HRS SQ Last administered on 08/27/18at 22:37; Start 08/08/18 at 22:00; Stop 08/27/18 at 23:00; Status DC Levetiracetam (Keppra) 500 mg BID PO Last administered on 10/01/18 21:18; Start 08/08/18 at 22:00 Atorvastatin Calcium (Lipitor) 20 mg QHS PO Last administered on 10/01/18 21:18 ; Start 08/09/18 at 21:00 Insulin Human Lispro (HumaLOG) 0-5 UNITS TIDWMEALS SQ Last administered on 09/05at 09:13; Start 08/09/18 at 08:00; Stop 09/05/18 at 14:16; Status DC Dextrose 12.5 gm PRN Q15MIN PRN IV SEE COMMENTS; Start 08/09/18 at 05:45; Stop 09/05/18 at 14:16; Status DC Duloxetine HCl (Cymbalta) 30 mg DAILY PO Last administered on 08/12/18at 08:06 ; Start 08/11/18 at 09:00; Stop 08/12/18 at 09:02; Status DC Duloxetine HCl (Cymbalta) 60 mg DAILY PO Last administered on 09/28/18at 08:28 ; Start 08/13/18 at 09:00; Stop 09/28/18 at 19:49; Status DC Cephalexin HCl (Keflex) 500 mg TID PO Last administered on 08/20/18at 19:28; Start 08/11/18 at 09:00; Stop 08/21/18 at 08:59; Status DC Lactobacillus Rhamnosus (Culturelle) 1 cap BID PO Last administered on at 21:18; Start 08/11/18 at 09:00 Levothyroxine Sodium (Synthroid) 100 mcg 1X ONCE PO Last administered on 08/15at 06:23; Start 08/15/18 at 06:30; Stop 08/15/18 at 06:31; Status DC Olanzapine (ZyPREXA ZYDIS) 10 mg PRN BID PRN PO AGITATION; Start 08/24/18 at 17:45; Stop 09/22/18 at 12:01; Status DC Olanzapine (ZyPREXA IM) 5 mg PRN BID PRN IM AGITATION Last administered on at 17:53; Start 08/24/18 at 17:45; Stop 09/22/18 at 12:01; Status DC Cefpodoxime Proxetil (Vantin) 200 mg BID PO Last administered on 08/27/18at 08: 28; Start 08/25/18 at 17:30; Stop 08/27/18 at 17:27; Status DC Gabapentin (Neurontin) 100 mg BID PO Last administered on 09/13/18at 09:05; Start 08/25/18 at 21:00; Stop 09/13/18 at 16:30; Status DC Quetiapine Fumarate (SEROquel) 12.5 mg DAILY16 PO Last administered on at 16:29; Start 08/27/18 at 16:00; Stop 09/16/18 at 16:52; Status DC Heparin Sodium (Porcine) (Heparin Sodium) 5,000 unit Q8HRS SQ Last administered on 09/25/18at 13:45; Start 08/28/18 at 06:00; Stop 09/25/18 at 18 :16; Status DC Ciprofloxacin (Cipro) 500 mg BID PO Last administered on 09/06/18at 08:09; Start 08/27/18 at 21:00; Stop 09/06/18 at 20:59; Status DC Insulin Human Lispro (HumaLOG) 0-9 UNITS TIDWMEALS SQ Last administered on 17:37; Start 09/05/18 at 17:00 Dextrose 12.5 gm PRN Q15MIN PRN IV SEE COMMENTS; Start 09/05/18 at 14:15 Gabapentin (Neurontin) 200 mg TID PO Last administered on 10/01/18 21:18; Start 09/13/18 at 21:00 Bupropion HCl (Wellbutrin Xl) 150 mg DAILY PO Last administered on 10/01/18 08: 08; Start 09/17/18 at 09:00 Insulin Glargine (Lantus) 15 units QHS SQ Last administered on 10/01/18 21:21; Start 09/19/18 at 21:00 Olanzapine (ZyPREXA ZYDIS) 2.5 mg PRN Q2HR PRN PO PSYCHOSIS Last administered on 09/30/18at 13:17; Start 09/22/18 at 12:00 Quetiapine Fumarate (SEROquel) 50 mg HS PO Last administered on 09/27/18at 21: 28; Start 09/22/18 at 21:00; Stop 09/28/18 at 19:49; Status DC Enoxaparin Sodium (Lovenox 40mg Syringe) 40 mg Q24H SQ Last administered on 10/01 21:22; Start 09/25/18 at 21:00 Duloxetine HCl (Cymbalta) 60 mg HS PO Last administered on 10/01/18 21:18; Start 09/29/18 at 21:00 Quetiapine Fumarate (SEROquel) 25 mg HS PO Last administered on 09/29/18at 20: 59; Start 09/28/18 at 21:00; Stop 09/30/18 at 17:23; Status DC Aripiprazole (Abilify) 2.5 mg QHS PO Last administered on 10/01/18at 21:17; Start 09/30/18 at 21:00 Active Scripts Active Reported Seroquel (Quetiapine Fumarate) 25 Mg Tablet 12.5 Mg PO DAILY16 Olanzapine 10 Mg Tablet 10 Mg PO PRN BID PRN Olanzapine Inj (Olanzapine) 10 Mg Vial 5 Mg IM PRN BID PRN Analgesic [place] (Methyl Salicylate/Menthol) 28 Gm Oint...g. 1 Frank TP PRN QID PRN Milk Of Magnesia (Magnesium Hydroxide) 2,400 Mg/10 Ml Oral.susp 2,400 Mg PO PRN QHS PRN Advanced Antacid Liquid (Mag Hydrox/Al Hydrox/Simeth) 355 Ml Oral.susp 15 Ml PO PRN AFTMEALHC PRN Culturelle (Lactobacillus Rhamnosus Gg) 1 Each Cap.sprink 1 Cap PO BID Humalog (Insulin Lispro) 100 Unit/1 Ml Cartridge 0-5 Unit SQ TIDWMEALS Gabapentin 100 Mg Capsule 100 Mg PO BID Cymbalta (Duloxetine Hcl) 60 Mg Capsule.dr 60 Mg PO DAILY Ciprofloxacin Hcl 500 Mg Tablet 500 Mg PO BID Venlafaxine Hcl Er (Venlafaxine Hcl) 150 Mg Tab.er.24 150 Mg PO DAILYWBKFT Quetiapine Fumarate 25 Mg Tablet 25 Mg PO DAILY Seroquel (Quetiapine Fumarate) 25 Mg Tablet 75 Mg PO QHS Namenda (Memantine Hcl) 10 Mg Tablet 10 Mg PO BID Lovastatin 40 Mg Tablet 80 Mg PO QHS Levothyroxine Sodium 100 Mcg Tablet 100 Mcg PO DAILYAC Keppra (Levetiracetam) 500 Mg Tablet 500 Mg PO BID Heparin 5,000 Unit/5 ml-Ns (Heparin Sod,Porcine/0.9 % NaCl) 5,000 Unit/5 Ml Syringe 5,000 Unit IM Q8HRS Vitamin D2 (Ergocalciferol (Vitamin D2)) 50,000 Unit Capsule 50,000 Unit PO WEEKLY Benazepril Hcl 20 Mg Tablet 20 Mg PO DAILY Aspirin 81 Mg Tab.chew 81 Mg PO DAILY Amlodipine Besylate 5 Mg Tablet 5 Mg PO DAILY Tylenol (Acetaminophen) 325 Mg Tablet 650 Mg PO PRN Q4HRS PRN I have reviewed the current psychotropics carefully including drug interactions. Risk benefit ratio favors no change other than as noted in my dictated progress note. Diagnosis: Problems: (1) Anxiety disorder (2) Mild cognitive disorder (3) Major depressive disorder, recurrent episode (4) Impulse control disorder ANTONIA BAILEY MD Oct 01, 2018 23:02
--- NOTE | 2018-10-02 00:07 | PN ---
DATE: 09/30/2018 PSYCHIATRIC PROGRESS NOTE This is a late entry 09/30/2018 covers elements not covered in my initial note. SUBJECTIVE: I met with the patient in the evening in her room. The patient slept 8-3/4 hours previous night. She did well in the morning. By about noon time, she was tearful, believed her son is sick. After lunch time, she was tearful, crying, receives Zyprexa and Tylenol, did better. She slept 8-3/4 hours. Remains sedated during the day and we will go ahead and change the Seroquel 25 at bedtime to Abilify 2.5 mg a day to augment the Wellbutrin and Cymbalta as antidepressants. REVIEW OF SYSTEMS: Ambulation impaired, in wheelchair. No CV, , pulmonary, eye, ENT system symptoms on review. MENTAL STATUS EXAM: Oriented to herself and situation. Speech moderate latency, often responses monosyllabic. Abstraction fair, computation impaired, language function intact, attention span short. Mood and affect withdrawn. LABORATORY DATA: Reviewed. IMPRESSION: Major depressive disorder, recurrent with possible psychotic features; anxiety disorder, unspecified; cognitive disorder, unspecified. PLAN: Initiate the changes noted above. May need to adjust further depending on her progress and we will monitor the tiredness, possibly repeat UA to make sure she does not have a UTI contributing to this. ANTONIA BAILEY MD DR: RAYMON/christen JOB#: [id number] / [id number]
[2018-10-02 05:45] VITALS: BP 146/83
[2018-10-02] MEDS: LEVOTHYROXINE 100 MCG TABLET PO SCH (05:52)
[2018-10-02 09:17] LABS: CLARITY,URINE CLOUDY; COLOR,URINE AMBER
[2018-10-02 09:18] LABS: BACTERIA,URINE MOD /HPF (0-FEW); BILIRUBIN,URINE NEG (NEG); GLUCOSE,URINE 100 mg/dL (NEG); NITRITE,URINE NEG (NEG); RBC,URINE RARE /HPF (0-2); SQUAMOUS EPITHELIAL CELL,UR FEW /LPF; UROBILINOGEN,URINE 1 mg/dL (0.2 mg/dL); WBC,URINE >40 /HPF (0-4); YEAST,URINE PRESENT /HPF
[2018-10-02] MEDS: buPROPion XL 150 MG TAB.ER.24H PO SCH (09:27)
[2018-10-02] MEDS: ASPIRIN 81 MG TAB.CHEW PO SCH (09:27)
[2018-10-02] MEDS: amLODIPine BESYLATE 5 MG TABLET PO SCH (09:27)
[2018-10-02] MEDS: LISINOPRIL 20 MG TABLET PO SCH (09:28)
[2018-10-02] MEDS: levETIRAcetam 500 MG TABLET PO SCH ×2 (09:28→20:02)
[2018-10-02] MEDS: INSULIN LISPRO 300 UNITS/3 ML INSULN.PEN. SQ SCH ×3 (09:29→17:09)
[2018-10-02] MEDS: GABAPENTIN 100 MG CAPSULE. PO SCH ×3 (09:31→20:02)
[2018-10-02] MEDS: LACTOBACILLUS RHAMNOSUS GG 1 CAPSULE. PO SCH ×2 (09:32→20:02)
[2018-10-02] MEDS: MEMANTINE 10 MG TABLET. PO SCH ×2 (09:32→20:01)
[2018-10-02] MEDS ORDERED: guaiFENesin DM 200MG/20MG 10 ML SYRUP PO PRN (15:00)
[2018-10-02 16:33] VITALS: BP 136/82
[2018-10-02] MEDS: ATORVASTATIN CALCIUM 20 MG TABLET PO SCH (20:02)
[2018-10-02] MEDS: DULoxetine HCL 60 MG CAPSULE.DR PO SCH (20:02)
[2018-10-02] MEDS: ARIPiprazole 5 MG TABLET PO SCH (20:02)
[2018-10-02] MEDS: ENOXAPARIN 40 MG/0.4 ML SYRINGE. SQ SCH (20:03)
[2018-10-02] MEDS: INSULIN GLARGINE 300 UNITS/3 ML INSULN.PEN. SQ SCH (20:08)
--- NOTE | 2018-10-02 22:53 | PDOC ---
Exam Note: José Miguel Note: Please also refer to the separate dictated note~for this date of service dictated separately.~Patient seen individually. Discussed the patient with Nursing staff reviewed the chart.~Reviewed interim history and current functioning. Reviewed vital signs,~Labs/ Radiology~and current medications noted below. Continue current treatment with the changes noted in the dictated addendum note Assessment: Vital Signs: Vital Signs Date Time Temp Pulse Resp B/P (MAP) Pulse Ox O2 Delivery O2 Flow Rate FiO2 10/02/18 16:33 98.4 79 18 136/82 (100) 96 Room Air I&O Intake and Output 10/02/18 07:01 Intake Total 320 ml Balance 320 ml Intake Oral 320 ml Labs: Laboratory Tests Test 10/02/18 07:27 10/02/18 08:53 10/02/18 11:30 10/02/18 16:44 Glucose (Fingerstick) 189 mg/dL (70-99) H 199 mg/dL (70-99) H 182 mg/dL (70-99) H Urine Collection Type Unknown Urine Color [place] Urine Clarity Cloudy Urine pH 6.0 Urine Specific [place] 1.020 Urine Protein Trace (NEG-TRACE) Urine Glucose (UA) 100 mg/dL (NEG) Urine Ketones (Stick) Neg mg/dL (NEG) Urine Blood Trace (NEG) Urine Nitrite Neg (NEG) Urine Bilirubin Neg (NEG) Urine Urobilinogen Dipstick 1 mg/dL (0.2 mg/dL) Urine Leukocyte Esterase Large (NEG) Urine RBC Rare /HPF (0-2) Urine WBC >40 /HPF (0-4) Urine Squamous Epithelial Cells Few /LPF Urine Bacteria Mod /HPF (0-FEW) Urine Yeast Present /HPF Test 10/02/18 19:15 Glucose (Fingerstick) 260 mg/dL (70-99) H Current Medications: Meds: Current Medications Acetaminophen (Tylenol) 650 mg PRN Q6HRS PRN PO PAIN / TEMP Last administered on 09/30/18at 13:16; Start 08/08/18 at 20:00 Multi-Ingredient Ointment (Analgesic [place]) 1 frank PRN QID PRN TP MUSCLE PAIN Last administered on 09/28/18at 23:29; Start 08/08/18 at 20:00 Al Hydroxide/Mg Hydroxide (Mylanta Plus Xs) 15 ml PRN AFTMEALHC PRN PO DYSPEPSIA; Start 08/08/18 at 20:00 Magnesium Hydroxide (Milk Of Magnesia) 2,400 mg PRN QHS PRN PO CONSTIPATION Last administered on 09/25/18 20:15; Start 08/08/18 at 20:00 Memantine (Namenda) 10 mg BID PO Last administered on 10/02/18 20:01; Start at 22:00 Quetiapine Fumarate (SEROquel) 25 mg DAILY PO Last administered on 09/05/18 08 :51; Start 08/09/18 at 09:00; Stop 09/05/18 at 11:58; Status DC Quetiapine Fumarate (SEROquel) 75 mg HS PO Last administered on 09/21/18 20: 38; Start 08/08/18 at 22:00; Stop 09/22/18 at 18:49; Status DC Venlafaxine HCl (Effexor) 50 mg TID PO Last administered on 08/10/18 13:40; Start 08/09/18 at 09:00; Stop 08/10/18 at 17:54; Status DC Acetaminophen (Tylenol) 650 mg PRN Q4HRS PRN PO PAIN / TEMP; Start 08/08/18 at 21:30; Status Cancel Levothyroxine Sodium (Synthroid) 100 mcg DAILY06 PO Last administered on 05:52; Start 08/09/18 at 06:00 Amlodipine Besylate (Norvasc) 5 mg DAILY PO Last administered on 10/02/18 09:27 ; Start 08/09/18 at 09:00 Aspirin (Children'S Aspirin) 81 mg DAILY PO Last administered on 10/02/18 09:27 ; Start 08/09/18 at 09:00 Lisinopril (Prinivil) 20 mg DAILY PO Last administered on 10/02/18 09:28; Start 08/09/18 at 09:00 Vitamin D (Vitamin D3) 50,000 unit WEEKLY PO Last administered on 09/26/18 12 :35; Start 08/15/18 at 09:00 Heparin Sodium (Porcine) (Heparin Sq) 5,000 unit Q8HRS SQ Last administered on 08/27/18at 22:37; Start 08/08/18 at 22:00; Stop 08/27/18 at 23:00; Status DC Levetiracetam (Keppra) 500 mg BID PO Last administered on 10/02/18 20:02; Start 08/08/18 at 22:00 Atorvastatin Calcium (Lipitor) 20 mg QHS PO Last administered on 10/02/18 20:02 ; Start 08/09/18 at 21:00 Insulin Human Lispro (HumaLOG) 0-5 UNITS TIDWMEALS SQ Last administered on 09/05at 09:13; Start 08/09/18 at 08:00; Stop 09/05/18 at 14:16; Status DC Dextrose 12.5 gm PRN Q15MIN PRN IV SEE COMMENTS; Start 08/09/18 at 05:45; Stop 09/05/18 at 14:16; Status DC Duloxetine HCl (Cymbalta) 30 mg DAILY PO Last administered on 08/12/18at 08:06 ; Start 08/11/18 at 09:00; Stop 08/12/18 at 09:02; Status DC Duloxetine HCl (Cymbalta) 60 mg DAILY PO Last administered on 09/28/18at 08:28 ; Start 08/13/18 at 09:00; Stop 09/28/18 at 19:49; Status DC Cephalexin HCl (Keflex) 500 mg TID PO Last administered on 08/20/18at 19:28; Start 08/11/18 at 09:00; Stop 08/21/18 at 08:59; Status DC Lactobacillus Rhamnosus (Culturelle) 1 cap BID PO Last administered on at 20:02; Start 08/11/18 at 09:00 Levothyroxine Sodium (Synthroid) 100 mcg 1X ONCE PO Last administered on 08/15at 06:23; Start 08/15/18 at 06:30; Stop 08/15/18 at 06:31; Status DC Olanzapine (ZyPREXA ZYDIS) 10 mg PRN BID PRN PO AGITATION; Start 08/24/18 at 17:45; Stop 09/22/18 at 12:01; Status DC Olanzapine (ZyPREXA IM) 5 mg PRN BID PRN IM AGITATION Last administered on at 17:53; Start 08/24/18 at 17:45; Stop 09/22/18 at 12:01; Status DC Cefpodoxime Proxetil (Vantin) 200 mg BID PO Last administered on 08/27/18at 08: 28; Start 08/25/18 at 17:30; Stop 08/27/18 at 17:27; Status DC Gabapentin (Neurontin) 100 mg BID PO Last administered on 09/13/18at 09:05; Start 08/25/18 at 21:00; Stop 09/13/18 at 16:30; Status DC Quetiapine Fumarate (SEROquel) 12.5 mg DAILY16 PO Last administered on at 16:29; Start 08/27/18 at 16:00; Stop 09/16/18 at 16:52; Status DC Heparin Sodium (Porcine) (Heparin Sodium) 5,000 unit Q8HRS SQ Last administered on 09/25/18at 13:45; Start 08/28/18 at 06:00; Stop 09/25/18 at 18 :16; Status DC Ciprofloxacin (Cipro) 500 mg BID PO Last administered on 09/06/18at 08:09; Start 08/27/18 at 21:00; Stop 09/06/18 at 20:59; Status DC Insulin Human Lispro (HumaLOG) 0-9 UNITS TIDWMEALS SQ Last administered on 17:09; Start 09/05/18 at 17:00 Dextrose 12.5 gm PRN Q15MIN PRN IV SEE COMMENTS; Start 09/05/18 at 14:15 Gabapentin (Neurontin) 200 mg TID PO Last administered on 10/02/18 20:02; Start 09/13/18 at 21:00 Bupropion HCl (Wellbutrin Xl) 150 mg DAILY PO Last administered on 10/02/18 09: 27; Start 09/17/18 at 09:00 Insulin Glargine (Lantus) 15 units QHS SQ Last administered on 10/02/18 20:08; Start 09/19/18 at 21:00 Olanzapine (ZyPREXA ZYDIS) 2.5 mg PRN Q2HR PRN PO PSYCHOSIS Last administered on 09/30/18at 13:17; Start 09/22/18 at 12:00 Quetiapine Fumarate (SEROquel) 50 mg HS PO Last administered on 09/27/18at 21: 28; Start 09/22/18 at 21:00; Stop 09/28/18 at 19:49; Status DC Enoxaparin Sodium (Lovenox 40mg Syringe) 40 mg Q24H SQ Last administered on 10/02at 20:03; Start 09/25/18 at 21:00 Duloxetine HCl (Cymbalta) 60 mg HS PO Last administered on 10/02/18at 20:02; Start 09/29/18 at 21:00 Quetiapine Fumarate (SEROquel) 25 mg HS PO Last administered on 09/29/18at 20: 59; Start 09/28/18 at 21:00; Stop 09/30/18 at 17:23; Status DC Aripiprazole (Abilify) 2.5 mg QHS PO Last administered on 10/02/18 20:02; Start 09/30/18 at 21:00 Guaifenesin (Robitussin Dm) 10 ml PRN Q6HRS PRN PO COUGH Last administered on at 19:11; Start 10/02/18 at 15:00 Active Scripts Active Reported Seroquel (Quetiapine Fumarate) 25 Mg Tablet 12.5 Mg PO DAILY16 Olanzapine 10 Mg Tablet 10 Mg PO PRN BID PRN Olanzapine Inj (Olanzapine) 10 Mg Vial 5 Mg IM PRN BID PRN Analgesic [place] (Methyl Salicylate/Menthol) 28 Gm Oint...g. 1 Frank TP PRN QID PRN Milk Of Magnesia (Magnesium Hydroxide) 2,400 Mg/10 Ml Oral.susp 2,400 Mg PO PRN QHS PRN Advanced Antacid Liquid (Mag Hydrox/Al Hydrox/Simeth) 355 Ml Oral.susp 15 Ml PO PRN AFTMEALHC PRN Culturelle (Lactobacillus Rhamnosus Gg) 1 Each Cap.sprink 1 Cap PO BID Humalog (Insulin Lispro) 100 Unit/1 Ml Cartridge 0-5 Unit SQ TIDWMEALS Gabapentin 100 Mg Capsule 100 Mg PO BID Cymbalta (Duloxetine Hcl) 60 Mg Capsule.dr 60 Mg PO DAILY Ciprofloxacin Hcl 500 Mg Tablet 500 Mg PO BID Venlafaxine Hcl Er (Venlafaxine Hcl) 150 Mg Tab.er.24 150 Mg PO DAILYWBKFT Quetiapine Fumarate 25 Mg Tablet 25 Mg PO DAILY Seroquel (Quetiapine Fumarate) 25 Mg Tablet 75 Mg PO QHS Namenda (Memantine Hcl) 10 Mg Tablet 10 Mg PO BID Lovastatin 40 Mg Tablet 80 Mg PO QHS Levothyroxine Sodium 100 Mcg Tablet 100 Mcg PO DAILYAC Keppra (Levetiracetam) 500 Mg Tablet 500 Mg PO BID Heparin 5,000 Unit/5 ml-Ns (Heparin Sod,Porcine/0.9 % NaCl) 5,000 Unit/5 Ml Syringe 5,000 Unit IM Q8HRS Vitamin D2 (Ergocalciferol (Vitamin D2)) 50,000 Unit Capsule 50,000 Unit PO WEEKLY Benazepril Hcl 20 Mg Tablet 20 Mg PO DAILY Aspirin 81 Mg Tab.chew 81 Mg PO DAILY Amlodipine Besylate 5 Mg Tablet 5 Mg PO DAILY Tylenol (Acetaminophen) 325 Mg Tablet 650 Mg PO PRN Q4HRS PRN I have reviewed the current psychotropics carefully including drug interactions. Risk benefit ratio favors no change other than as noted in my dictated progress note. Diagnosis: Problems: (1) Anxiety disorder (2) Mild cognitive disorder (3) Major depressive disorder, recurrent episode (4) Impulse control disorder ANTONIA BAILEY MD Oct 02, 2018 22:53
--- NOTE | 2018-10-03 00:39 | PN ---
DATE: 10/01/2018 PSYCHIATRIC PROGRESS NOTE This late entry 10/01/2018 covers elements not covered in my initial note. SUBJECTIVE: I met with the patient in the evening. The patient slept 3-1/4 hours previous night. She fell out of her wheelchair the day before. In fact might have pushed herself out, leant forward and fell. CT head was negative. X-ray negative. Complains of shoulder pain. A day before, she was delusional about her son being injured, anxious, somewhat obsessive, still depressed. We will check her UA due to her ongoing symptoms and tiredness to make sure she did not have a recurrent UTI. REVIEW OF SYSTEMS: Ambulation impaired, in wheelchair. No CV, , pulmonary, eye, ENT system symptoms on review. MENTAL STATUS EXAM: Oriented to herself and situation. Speech, moderate latency, often responses monosyllabic. Abstraction fair, computation impaired, language function intact, attention span short. Mood and affect withdrawn. LABORATORY DATA: Reviewed. IMPRESSION: Unchanged from initial note. PLAN: No change from initial note. Check UA. MAN Han BAILEY MD DR: RAYMON/christen JOB#: [id number] / [id number]
[2018-10-03 05:54] VITALS: BP 148/82
[2018-10-03] MEDS: LEVOTHYROXINE 100 MCG TABLET PO SCH (06:16)
[2018-10-03] MEDS: buPROPion XL 150 MG TAB.ER.24H PO SCH (08:25)
[2018-10-03] MEDS: LACTOBACILLUS RHAMNOSUS GG 1 CAPSULE. PO SCH ×2 (08:25→20:17)
[2018-10-03] MEDS: levETIRAcetam 500 MG TABLET PO SCH ×2 (08:25→20:17)
[2018-10-03] MEDS: amLODIPine BESYLATE 5 MG TABLET PO SCH (08:25)
[2018-10-03] MEDS: LISINOPRIL 20 MG TABLET PO SCH (08:26)
[2018-10-03] MEDS: MEMANTINE 10 MG TABLET. PO SCH ×2 (08:26→20:23)
[2018-10-03] MEDS: GABAPENTIN 100 MG CAPSULE. PO SCH ×3 (08:27→20:22)
[2018-10-03] MEDS: ASPIRIN 81 MG TAB.CHEW PO SCH (08:27)
[2018-10-03] MEDS: CHOLECALCIFEROL (VITAMIN D3) 50,000 UNIT CAPSULE PO SCH (08:28)
[2018-10-03] MEDS: INSULIN LISPRO 300 UNITS/3 ML INSULN.PEN. SQ SCH ×3 (08:44→17:23)
[2018-10-03 16:06] VITALS: BP 114/78
[2018-10-03] MEDS: ARIPiprazole 5 MG TABLET PO SCH (20:17)
[2018-10-03] MEDS: DULoxetine HCL 60 MG CAPSULE.DR PO SCH (20:17)
[2018-10-03] MEDS: ATORVASTATIN CALCIUM 20 MG TABLET PO SCH (20:17)
[2018-10-03] MEDS: ENOXAPARIN 40 MG/0.4 ML SYRINGE. SQ SCH (20:18)
[2018-10-03] MEDS: NITROFURANTOIN MONOHYD/M-CRYST 100 MG CAPSULE. PO SCH (20:23)
[2018-10-03] MEDS: INSULIN GLARGINE 300 UNITS/3 ML INSULN.PEN. SQ SCH (20:24)
--- NOTE | 2018-10-03 23:07 | PDOC ---
Exam Note: José Miguel Note: Please also refer to the separate dictated note~for this date of service dictated separately.~Patient seen individually. Discussed the patient with Nursing staff reviewed the chart.~Reviewed interim history and current functioning. Reviewed vital signs,~Labs/ Radiology~and current medications noted below. Continue current treatment with the changes noted in the dictated addendum note Assessment: Vital Signs: Vital Signs Date Time Temp Pulse Resp B/P (MAP) Pulse Ox O2 Delivery O2 Flow Rate FiO2 10/03/18 16:06 97.0 89 16 114/78 (90) 98 Room Air I&O Intake and Output 10/03/18 07:01 Intake Total 690 ml Balance 690 ml Intake Oral 690 ml # Bowel Movements 1 Labs: Laboratory Tests Test 10/03/18 07:18 10/03/18 12:01 10/03/18 17:10 10/03/18 19:12 Glucose (Fingerstick) 148 mg/dL (70-99) H 192 mg/dL (70-99) H 191 mg/dL (70-99) H 241 mg/dL (70-99) H Current Medications: Meds: Current Medications Acetaminophen (Tylenol) 650 mg PRN Q6HRS PRN PO PAIN / TEMP Last administered on 09/30/18at 13:16; Start 08/08/18 at 20:00 Multi-Ingredient Ointment (Analgesic Pickrell) 1 frank PRN QID PRN TP MUSCLE PAIN Last administered on 09/28/18at 23:29; Start 08/08/18 at 20:00 Al Hydroxide/Mg Hydroxide (Mylanta Plus Xs) 15 ml PRN AFTMEALHC PRN PO DYSPEPSIA; Start 08/08/18 at 20:00 Magnesium Hydroxide (Milk Of Magnesia) 2,400 mg PRN QHS PRN PO CONSTIPATION Last administered on 09/25/18at 20:15; Start 08/08/18 at 20:00 Memantine (Namenda) 10 mg BID PO Last administered on 10/03/18at 20:23; Start at 22:00 Quetiapine Fumarate (SEROquel) 25 mg DAILY PO Last administered on 09/05/18at 08 :51; Start 08/09/18 at 09:00; Stop 09/05/18 at 11:58; Status DC Quetiapine Fumarate (SEROquel) 75 mg HS PO Last administered on 09/21/18at 20: 38; Start 08/08/18 at 22:00; Stop 09/22/18 at 18:49; Status DC Venlafaxine HCl (Effexor) 50 mg TID PO Last administered on 08/10/18at 13:40; Start 08/09/18 at 09:00; Stop 08/10/18 at 17:54; Status DC Acetaminophen (Tylenol) 650 mg PRN Q4HRS PRN PO PAIN / TEMP; Start 08/08/18 at 21:30; Status Cancel Levothyroxine Sodium (Synthroid) 100 mcg DAILY06 PO Last administered on 06:16; Start 08/09/18 at 06:00 Amlodipine Besylate (Norvasc) 5 mg DAILY PO Last administered on 10/03/18 08:25 ; Start 08/09/18 at 09:00 Aspirin (Children'S Aspirin) 81 mg DAILY PO Last administered on 10/03/18 08:27 ; Start 08/09/18 at 09:00 Lisinopril (Prinivil) 20 mg DAILY PO Last administered on 10/03/18 08:26; Start 08/09/18 at 09:00 Vitamin D (Vitamin D3) 50,000 unit WEEKLY PO Last administered on 10/03/18 08: 28; Start 08/15/18 at 09:00 Heparin Sodium (Porcine) (Heparin Sq) 5,000 unit Q8HRS SQ Last administered on 08/27/18at 22:37; Start 08/08/18 at 22:00; Stop 08/27/18 at 23:00; Status DC Levetiracetam (Keppra) 500 mg BID PO Last administered on 10/03/18 20:17; Start 08/08/18 at 22:00 Atorvastatin Calcium (Lipitor) 20 mg QHS PO Last administered on 10/03/18 20:17 ; Start 08/09/18 at 21:00 Insulin Human Lispro (HumaLOG) 0-5 UNITS TIDWMEALS SQ Last administered on 09/05at 09:13; Start 08/09/18 at 08:00; Stop 09/05/18 at 14:16; Status DC Dextrose 12.5 gm PRN Q15MIN PRN IV SEE COMMENTS; Start 08/09/18 at 05:45; Stop 09/05/18 at 14:16; Status DC Duloxetine HCl (Cymbalta) 30 mg DAILY PO Last administered on 08/12/18at 08:06 ; Start 08/11/18 at 09:00; Stop 08/12/18 at 09:02; Status DC Duloxetine HCl (Cymbalta) 60 mg DAILY PO Last administered on 09/28/18at 08:28 ; Start 08/13/18 at 09:00; Stop 09/28/18 at 19:49; Status DC Cephalexin HCl (Keflex) 500 mg TID PO Last administered on 08/20/18at 19:28; Start 08/11/18 at 09:00; Stop 08/21/18 at 08:59; Status DC Lactobacillus Rhamnosus (Culturelle) 1 cap BID PO Last administered on at 20:17; Start 08/11/18 at 09:00 Levothyroxine Sodium (Synthroid) 100 mcg 1X ONCE PO Last administered on 08/15at 06:23; Start 08/15/18 at 06:30; Stop 08/15/18 at 06:31; Status DC Olanzapine (ZyPREXA ZYDIS) 10 mg PRN BID PRN PO AGITATION; Start 08/24/18 at 17:45; Stop 09/22/18 at 12:01; Status DC Olanzapine (ZyPREXA IM) 5 mg PRN BID PRN IM AGITATION Last administered on at 17:53; Start 08/24/18 at 17:45; Stop 09/22/18 at 12:01; Status DC Cefpodoxime Proxetil (Vantin) 200 mg BID PO Last administered on 08/27/18at 08: 28; Start 08/25/18 at 17:30; Stop 08/27/18 at 17:27; Status DC Gabapentin (Neurontin) 100 mg BID PO Last administered on 09/13/18at 09:05; Start 08/25/18 at 21:00; Stop 09/13/18 at 16:30; Status DC Quetiapine Fumarate (SEROquel) 12.5 mg DAILY16 PO Last administered on at 16:29; Start 08/27/18 at 16:00; Stop 09/16/18 at 16:52; Status DC Heparin Sodium (Porcine) (Heparin Sodium) 5,000 unit Q8HRS SQ Last administered on 09/25/18at 13:45; Start 08/28/18 at 06:00; Stop 09/25/18 at 18 :16; Status DC Ciprofloxacin (Cipro) 500 mg BID PO Last administered on 09/06/18at 08:09; Start 08/27/18 at 21:00; Stop 09/06/18 at 20:59; Status DC Insulin Human Lispro (HumaLOG) 0-9 UNITS TIDWMEALS SQ Last administered on 17:23; Start 09/05/18 at 17:00 Dextrose 12.5 gm PRN Q15MIN PRN IV SEE COMMENTS; Start 09/05/18 at 14:15 Gabapentin (Neurontin) 200 mg TID PO Last administered on 10/03/18 20:22; Start 09/13/18 at 21:00 Bupropion HCl (Wellbutrin Xl) 150 mg DAILY PO Last administered on 10/03/18 08: 25; Start 09/17/18 at 09:00 Insulin Glargine (Lantus) 15 units QHS SQ Last administered on 10/03/18 20:24; Start 09/19/18 at 21:00 Olanzapine (ZyPREXA ZYDIS) 2.5 mg PRN Q2HR PRN PO PSYCHOSIS Last administered on 09/30/18 13:17; Start 09/22/18 at 12:00 Quetiapine Fumarate (SEROquel) 50 mg HS PO Last administered on 09/27/18at 21: 28; Start 09/22/18 at 21:00; Stop 09/28/18 at 19:49; Status DC Enoxaparin Sodium (Lovenox 40mg Syringe) 40 mg Q24H SQ Last administered on 10/03 20:18; Start 09/25/18 at 21:00 Duloxetine HCl (Cymbalta) 60 mg HS PO Last administered on 10/03/18 20:17; Start 09/29/18 at 21:00 Quetiapine Fumarate (SEROquel) 25 mg HS PO Last administered on 09/29/18at 20: 59; Start 09/28/18 at 21:00; Stop 09/30/18 at 17:23; Status DC Aripiprazole (Abilify) 2.5 mg QHS PO Last administered on 10/03/18at 20:17; Start 09/30/18 at 21:00 Guaifenesin (Robitussin Dm) 10 ml PRN Q6HRS PRN PO COUGH Last administered on at 19:11; Start 10/02/18 at 15:00 Nitrofurantoin Macrocrystals (Macrobid) 100 mg QHS PO Last administered on at 20:23; Start 10/03/18 at 21:00 Active Scripts Active Reported Seroquel (Quetiapine Fumarate) 25 Mg Tablet 12.5 Mg PO DAILY16 Olanzapine 10 Mg Tablet 10 Mg PO PRN BID PRN Olanzapine Inj (Olanzapine) 10 Mg Vial 5 Mg IM PRN BID PRN Analgesic Pickrell (Methyl Salicylate/Menthol) 28 Gm Oint...g. 1 Frank TP PRN QID PRN Milk Of Magnesia (Magnesium Hydroxide) 2,400 Mg/10 Ml Oral.susp 2,400 Mg PO PRN QHS PRN Advanced Antacid Liquid (Mag Hydrox/Al Hydrox/Simeth) 355 Ml Oral.susp 15 Ml PO PRN AFTMEALHC PRN Culturelle (Lactobacillus Rhamnosus Gg) 1 Each Cap.sprink 1 Cap PO BID Humalog (Insulin Lispro) 100 Unit/1 Ml Cartridge 0-5 Unit SQ TIDWMEALS Gabapentin 100 Mg Capsule 100 Mg PO BID Cymbalta (Duloxetine Hcl) 60 Mg Capsule.dr 60 Mg PO DAILY Ciprofloxacin Hcl 500 Mg Tablet 500 Mg PO BID Venlafaxine Hcl Er (Venlafaxine Hcl) 150 Mg Tab.er.24 150 Mg PO DAILYWBKFT Quetiapine Fumarate 25 Mg Tablet 25 Mg PO DAILY Seroquel (Quetiapine Fumarate) 25 Mg Tablet 75 Mg PO QHS Namenda (Memantine Hcl) 10 Mg Tablet 10 Mg PO BID Lovastatin 40 Mg Tablet 80 Mg PO QHS Levothyroxine Sodium 100 Mcg Tablet 100 Mcg PO DAILYAC Keppra (Levetiracetam) 500 Mg Tablet 500 Mg PO BID Heparin 5,000 Unit/5 ml-Ns (Heparin Sod,Porcine/0.9 % NaCl) 5,000 Unit/5 Ml Syringe 5,000 Unit IM Q8HRS Vitamin D2 (Ergocalciferol (Vitamin D2)) 50,000 Unit Capsule 50,000 Unit PO WEEKLY Benazepril Hcl 20 Mg Tablet 20 Mg PO DAILY Aspirin 81 Mg Tab.chew 81 Mg PO DAILY Amlodipine Besylate 5 Mg Tablet 5 Mg PO DAILY Tylenol (Acetaminophen) 325 Mg Tablet 650 Mg PO PRN Q4HRS PRN I have reviewed the current psychotropics carefully including drug interactions. Risk benefit ratio favors no change other than as noted in my dictated progress note. Diagnosis: Problems: (1) Anxiety disorder (2) Mild cognitive disorder (3) Major depressive disorder, recurrent episode (4) Impulse control disorder ANTONIA BAILEY MD Oct 03, 2018 23:07
[2018-10-04] MEDS: ACETAMINOPHEN 325 MG TABLET PO PRN ×2 (02:21→22:19)
[2018-10-04] MEDS: LEVOTHYROXINE 100 MCG TABLET PO SCH (04:51)
[2018-10-04 05:43] VITALS: BP 147/77
[2018-10-04] MEDS: INSULIN LISPRO 300 UNITS/3 ML INSULN.PEN. SQ SCH ×3 (08:00→17:26)
[2018-10-04] MEDS: buPROPion XL 150 MG TAB.ER.24H PO SCH (08:06)
[2018-10-04] MEDS: GABAPENTIN 100 MG CAPSULE. PO SCH ×3 (08:06→20:05)
[2018-10-04] MEDS: LACTOBACILLUS RHAMNOSUS GG 1 CAPSULE. PO SCH ×2 (08:06→20:05)
[2018-10-04] MEDS: ASPIRIN 81 MG TAB.CHEW PO SCH (08:06)
[2018-10-04] MEDS: amLODIPine BESYLATE 5 MG TABLET PO SCH (08:06)
[2018-10-04] MEDS: levETIRAcetam 500 MG TABLET PO SCH ×2 (08:07→20:05)
[2018-10-04] MEDS: LISINOPRIL 20 MG TABLET PO SCH (08:07)
[2018-10-04] MEDS: MEMANTINE 10 MG TABLET. PO SCH ×2 (08:09→20:05)
[2018-10-04 09:50] LABS: BASO # 0.1 x10^3/uL (0.0-0.2); BASO % 1 % (0-3); EOS # 0.2 x10^3/uL (0.0-0.7); EOS % 4 % (0-3); HEMATOCRIT 35.4 % (36.0-47.0); HEMOGLOBIN 12.1 g/dL (12.0-15.5); LYMPH % 35 % (24-48); MEAN CORPUSCULAR HEMOGLOBIN 32 pg (25-35); MEAN CORPUSCULAR HGB CONC 34 g/dL (31-37); MEAN CORPUSCULAR VOLUME 94 fL (79-100); MONO # 0.3 x10^3/uL (0.0-1.1); MONO % 6 % (0-9); NEUT % 54 % (31-73); PLATELET COUNT 274 x10^3/uL (140-400); RED BLOOD COUNT 3.75 x10^6/uL (3.50-5.40); RED CELL DISTRIBUTION WIDTH 14.7 % (11.5-14.5); WHITE BLOOD COUNT 5.5 x10^3/uL (4.0-11.0)
[2018-10-04 09:58] LABS: ALBUMIN 3.1 g/dL (3.4-5.0); ALBUMIN/GLOBULIN RATIO 0.7 (1.0-1.7); CALCIUM 9.3 mg/dL (8.5-10.1); CREATININE 0.8 mg/dL (0.6-1.0); GFR 69.9; POTASSIUM 3.9 mmol/L (3.5-5.1); TOTAL BILIRUBIN 0.3 mg/dL (0.2-1.0); TOTAL PROTEIN 7.6 g/dL (6.4-8.2)
--- NOTE | 2018-10-04 16:53 | PN ---
DATE: 10/02/2018 PSYCHIATRIC PROGRESS NOTE This is a late entry 10/02/2018, covers elements not covered in my initial note. SUBJECTIVE: I met with the patient in the evening. The patient slept 7-3/4 hours previous night. She has been withdrawn, isolative, somewhat tired. UA has reflex to culture. We will await results as this could account for her tiredness and withdrawal. REVIEW OF SYSTEMS: Ambulation impaired, in wheelchair. No CV, , pulmonary, eye, ENT system symptoms on review. MENTAL STATUS EXAM: Oriented to herself and situation. Speech moderate latency, often responses monosyllabic. Abstraction fair, computation impaired, language function intact, attention span short. Mood and affect is withdrawn. LABORATORY DATA: Reviewed. IMPRESSION: Major depressive disorder, recurrent with psychotic features; cognitive disorder, unspecified; anxiety disorder, unspecified. PLAN: No change from initial note. Await results of urine culture. Treat UTI if indicated. Rest unchanged from initial note. MAN Han BAILEY MD DR: RAYMON/christen JOB#: [id number] / [id number]
[2018-10-04 17:08] VITALS: BP 101/70
--- NOTE | 2018-10-04 19:52 | PN ---
DATE: 10/03/2018 PSYCHIATRIC PROGRESS NOTE This is late entry for 10/03/2018 and covers elements not covered in my initial note. SUBJECTIVE: I met with the patient in the evening and staffed at a treatment team meeting with the entire team in the morning. The patient remains somewhat withdrawn, isolative, slept 7 hours previous evening. She does seem to have a recurrent UTI. Culture and sensitivity report is awaited before we retreat it and we will discuss with Dr. Anguiano about possible prophylactic antibiotics. REVIEW OF SYSTEMS: Ambulation impaired, in wheelchair. No CV, , pulmonary, eye system symptoms on review. She appears tired as I met with her in the evening. MENTAL STATUS EXAM: Oriented to herself and situation. Speech has moderate latency, often responses monosyllabic. Abstraction fair, computation impaired, language function intact, attention span short. Mood and affect still somewhat withdrawn. LABORATORY DATA: Reviewed. IMPRESSION: Major depressive disorder with psychotic features, in partial remission; cognitive disorder, unspecified. Urinary tract infection. Rest unchanged. PLAN: No change from initial note other than what is noted above. MAN Han BAILEY MD DR: RAYMON/christen JOB#: [id number] / [id number]
[2018-10-04] MEDS: ATORVASTATIN CALCIUM 20 MG TABLET PO SCH (20:04)
[2018-10-04] MEDS: DULoxetine HCL 60 MG CAPSULE.DR PO SCH (20:05)
[2018-10-04] MEDS: NITROFURANTOIN MONOHYD/M-CRYST 100 MG CAPSULE. PO SCH (20:05)
[2018-10-04] MEDS: ARIPiprazole 5 MG TABLET PO SCH (20:05)
[2018-10-04] MEDS: ENOXAPARIN 40 MG/0.4 ML SYRINGE. SQ SCH (20:06)
[2018-10-04] MEDS: INSULIN GLARGINE 300 UNITS/3 ML INSULN.PEN. SQ SCH (20:07)
--- NOTE | 2018-10-04 22:52 | PDOC ---
Exam Note: José Miguel Note: Please also refer to the separate dictated note~for this date of service dictated separately.~Patient seen individually. Discussed the patient with Nursing staff reviewed the chart.~Reviewed interim history and current functioning. Reviewed vital signs,~Labs/ Radiology~and current medications noted below. Continue current treatment with the changes noted in the dictated addendum note Assessment: Vital Signs: Vital Signs Date Time Temp Pulse Resp B/P (MAP) Pulse Ox O2 Delivery O2 Flow Rate FiO2 10/04/18 17:08 97.9 66 16 101/70 (80) 10/04/18 05:43 95 10/03/18 16:06 Room Air I&O Intake and Output 10/04/18 07:01 Intake Total 660 ml Balance 660 ml Intake Oral 660 ml Labs: Laboratory Tests Test 10/04/18 07:09 10/04/18 09:18 10/04/18 12:13 10/04/18 17:02 Glucose (Fingerstick) 113 mg/dL (70-99) H 265 mg/dL (70-99) H 206 mg/dL (70-99) H White Blood Count 5.5 x10^3/uL (4.0-11.0) Red Blood Count 3.75 x10^6/uL (3.50-5.40) Hemoglobin 12.1 g/dL (12.0-15.5) Hematocrit 35.4 % (36.0-47.0) L Mean Corpuscular Volume 94 fL (79-100) Mean Corpuscular Hemoglobin 32 pg (25-35) Mean Corpuscular Hemoglobin Concent 34 g/dL (31-37) Red Cell Distribution Width 14.7 % (11.5-14.5) H Platelet Count 274 x10^3/uL (140-400) Neutrophils (%) (Auto) 54 % (31-73) Lymphocytes (%) (Auto) 35 % (24-48) Monocytes (%) (Auto) 6 % (0-9) Eosinophils (%) (Auto) 4 % (0-3) H Basophils (%) (Auto) 1 % (0-3) Neutrophils # (Auto) 3.0 x10^3uL (1.8-7.7) Lymphocytes # (Auto) 2.0 x10^3/uL (1.0-4.8) Monocytes # (Auto) 0.3 x10^3/uL (0.0-1.1) Eosinophils # (Auto) 0.2 x10^3/uL (0.0-0.7) Basophils # (Auto) 0.1 x10^3/uL (0.0-0.2) Sodium Level 140 mmol/L (136-145) Potassium Level 3.9 mmol/L (3.5-5.1) Chloride Level 102 mmol/L (98-107) Carbon Dioxide Level 31 mmol/L (21-32) Anion Gap 7 (6-14) Blood Urea Nitrogen 16 mg/dL (7-20) Creatinine 0.8 mg/dL (0.6-1.0) Estimated GFR (Cockcroft-Gault) 69.9 BUN/Creatinine Ratio 20 (6-20) Glucose Level 197 mg/dL (70-99) H Calcium Level 9.3 mg/dL (8.5-10.1) Total Bilirubin 0.3 mg/dL (0.2-1.0) Aspartate Amino Transferase (AST) 14 U/L (15-37) L Alanine Aminotransferase (ALT) 15 U/L (14-59) Alkaline Phosphatase 100 U/L (46-116) Total Protein 7.6 g/dL (6.4-8.2) Albumin 3.1 g/dL (3.4-5.0) L Albumin/Globulin Ratio 0.7 (1.0-1.7) L Test 10/04/18 19:03 Glucose (Fingerstick) 176 mg/dL (70-99) H Current Medications: Meds: Current Medications Acetaminophen (Tylenol) 650 mg PRN Q6HRS PRN PO PAIN / TEMP Last administered on 10/04/18at 22:19; Start 08/08/18 at 20:00 Multi-Ingredient Ointment (Analgesic Estelline) 1 frank PRN QID PRN TP MUSCLE PAIN Last administered on 09/28/18at 23:29; Start 08/08/18 at 20:00 Al Hydroxide/Mg Hydroxide (Mylanta Plus Xs) 15 ml PRN AFTMEALHC PRN PO DYSPEPSIA; Start 08/08/18 at 20:00 Magnesium Hydroxide (Milk Of Magnesia) 2,400 mg PRN QHS PRN PO CONSTIPATION Last administered on 09/25/18 20:15; Start 08/08/18 at 20:00 Memantine (Namenda) 10 mg BID PO Last administered on 10/04/18 20:05; Start at 22:00 Quetiapine Fumarate (SEROquel) 25 mg DAILY PO Last administered on 09/05/18 08 :51; Start 08/09/18 at 09:00; Stop 09/05/18 at 11:58; Status DC Quetiapine Fumarate (SEROquel) 75 mg HS PO Last administered on 09/21/18at 20: 38; Start 08/08/18 at 22:00; Stop 09/22/18 at 18:49; Status DC Venlafaxine HCl (Effexor) 50 mg TID PO Last administered on 08/10/18 13:40; Start 08/09/18 at 09:00; Stop 08/10/18 at 17:54; Status DC Acetaminophen (Tylenol) 650 mg PRN Q4HRS PRN PO PAIN / TEMP; Start 08/08/18 at 21:30; Status Cancel Levothyroxine Sodium (Synthroid) 100 mcg DAILY06 PO Last administered on 04:51; Start 08/09/18 at 06:00 Amlodipine Besylate (Norvasc) 5 mg DAILY PO Last administered on 10/04/18 08:06 ; Start 08/09/18 at 09:00 Aspirin (Children'S Aspirin) 81 mg DAILY PO Last administered on 10/04/18 08:06 ; Start 08/09/18 at 09:00 Lisinopril (Prinivil) 20 mg DAILY PO Last administered on 10/04/18 08:07; Start 08/09/18 at 09:00 Vitamin D (Vitamin D3) 50,000 unit WEEKLY PO Last administered on 10/03/18 08: 28; Start 08/15/18 at 09:00 Heparin Sodium (Porcine) (Heparin Sq) 5,000 unit Q8HRS SQ Last administered on 08/27/18at 22:37; Start 08/08/18 at 22:00; Stop 08/27/18 at 23:00; Status DC Levetiracetam (Keppra) 500 mg BID PO Last administered on 1/4/19at 20:05; Start 08/08/18 at 22:00 Atorvastatin Calcium (Lipitor) 20 mg QHS PO Last administered on 10/04/18at 20:04 ; Start 08/09/18 at 21:00 Insulin Human Lispro (HumaLOG) 0-5 UNITS TIDWMEALS SQ Last administered on 09/05at 09:13; Start 08/09/18 at 08:00; Stop 09/05/18 at 14:16; Status DC Dextrose 12.5 gm PRN Q15MIN PRN IV SEE COMMENTS; Start 08/09/18 at 05:45; Stop 09/05/18 at 14:16; Status DC Duloxetine HCl (Cymbalta) 30 mg DAILY PO Last administered on 08/12/18at 08:06 ; Start 08/11/18 at 09:00; Stop 08/12/18 at 09:02; Status DC Duloxetine HCl (Cymbalta) 60 mg DAILY PO Last administered on 09/28/18at 08:28 ; Start 08/13/18 at 09:00; Stop 09/28/18 at 19:49; Status DC Cephalexin HCl (Keflex) 500 mg TID PO Last administered on 08/20/18at 19:28; Start 08/11/18 at 09:00; Stop 08/21/18 at 08:59; Status DC Lactobacillus Rhamnosus (Culturelle) 1 cap BID PO Last administered on 20:05; Start 08/11/18 at 09:00 Levothyroxine Sodium (Synthroid) 100 mcg 1X ONCE PO Last administered on 08/15at 06:23; Start 08/15/18 at 06:30; Stop 08/15/18 at 06:31; Status DC Olanzapine (ZyPREXA ZYDIS) 10 mg PRN BID PRN PO AGITATION; Start 08/24/18 at 17:45; Stop 09/22/18 at 12:01; Status DC Olanzapine (ZyPREXA IM) 5 mg PRN BID PRN IM AGITATION Last administered on at 17:53; Start 08/24/18 at 17:45; Stop 09/22/18 at 12:01; Status DC Cefpodoxime Proxetil (Vantin) 200 mg BID PO Last administered on 08/27/18at 08: 28; Start 08/25/18 at 17:30; Stop 08/27/18 at 17:27; Status DC Gabapentin (Neurontin) 100 mg BID PO Last administered on 09/13/18at 09:05; Start 08/25/18 at 21:00; Stop 09/13/18 at 16:30; Status DC Quetiapine Fumarate (SEROquel) 12.5 mg DAILY16 PO Last administered on at 16:29; Start 08/27/18 at 16:00; Stop 09/16/18 at 16:52; Status DC Heparin Sodium (Porcine) (Heparin Sodium) 5,000 unit Q8HRS SQ Last administered on 09/25/18at 13:45; Start 08/28/18 at 06:00; Stop 09/25/18 at 18 :16; Status DC Ciprofloxacin (Cipro) 500 mg BID PO Last administered on 09/06/18at 08:09; Start 08/27/18 at 21:00; Stop 09/06/18 at 20:59; Status DC Insulin Human Lispro (HumaLOG) 0-9 UNITS TIDWMEALS SQ Last administered on 17:26; Start 09/05/18 at 17:00 Dextrose 12.5 gm PRN Q15MIN PRN IV SEE COMMENTS; Start 09/05/18 at 14:15 Gabapentin (Neurontin) 200 mg TID PO Last administered on 10/04/18 20:05; Start 09/13/18 at 21:00 Bupropion HCl (Wellbutrin Xl) 150 mg DAILY PO Last administered on 10/04/18 08: 06; Start 09/17/18 at 09:00 Insulin Glargine (Lantus) 15 units QHS SQ Last administered on 10/04/18 20:07; Start 09/19/18 at 21:00 Olanzapine (ZyPREXA ZYDIS) 2.5 mg PRN Q2HR PRN PO PSYCHOSIS Last administered on 09/30/18at 13:17; Start 09/22/18 at 12:00 Quetiapine Fumarate (SEROquel) 50 mg HS PO Last administered on 09/27/18at 21: 28; Start 09/22/18 at 21:00; Stop 09/28/18 at 19:49; Status DC Enoxaparin Sodium (Lovenox 40mg Syringe) 40 mg Q24H SQ Last administered on 10/04 20:06; Start 09/25/18 at 21:00 Duloxetine HCl (Cymbalta) 60 mg HS PO Last administered on 10/04/18 20:05; Start 09/29/18 at 21:00 Quetiapine Fumarate (SEROquel) 25 mg HS PO Last administered on 09/29/18at 20: 59; Start 09/28/18 at 21:00; Stop 09/30/18 at 17:23; Status DC Aripiprazole (Abilify) 2.5 mg QHS PO Last administered on 10/04/18 20:05; Start 09/30/18 at 21:00 Guaifenesin (Robitussin Dm) 10 ml PRN Q6HRS PRN PO COUGH Last administered on 19:11; Start 10/02/18 at 15:00 Nitrofurantoin Macrocrystals (Macrobid) 100 mg QHS PO Last administered on 20:05; Start 10/03/18 at 21:00 Active Scripts Active Reported Seroquel (Quetiapine Fumarate) 25 Mg Tablet 12.5 Mg PO DAILY16 Olanzapine 10 Mg Tablet 10 Mg PO PRN BID PRN Olanzapine Inj (Olanzapine) 10 Mg Vial 5 Mg IM PRN BID PRN Analgesic Estelline (Methyl Salicylate/Menthol) 28 Gm Oint...g. 1 Frank TP PRN QID PRN Milk Of Magnesia (Magnesium Hydroxide) 2,400 Mg/10 Ml Oral.susp 2,400 Mg PO PRN QHS PRN Advanced Antacid Liquid (Mag Hydrox/Al Hydrox/Simeth) 355 Ml Oral.susp 15 Ml PO PRN AFTMEALHC PRN Culturelle (Lactobacillus Rhamnosus Gg) 1 Each Cap.sprink 1 Cap PO BID Humalog (Insulin Lispro) 100 Unit/1 Ml Cartridge 0-5 Unit SQ TIDWMEALS Gabapentin 100 Mg Capsule 100 Mg PO BID Cymbalta (Duloxetine Hcl) 60 Mg Capsule.dr 60 Mg PO DAILY Ciprofloxacin Hcl 500 Mg Tablet 500 Mg PO BID Venlafaxine Hcl Er (Venlafaxine Hcl) 150 Mg Tab.er.24 150 Mg PO DAILYWBKFT Quetiapine Fumarate 25 Mg Tablet 25 Mg PO DAILY Seroquel (Quetiapine Fumarate) 25 Mg Tablet 75 Mg PO QHS Namenda (Memantine Hcl) 10 Mg Tablet 10 Mg PO BID Lovastatin 40 Mg Tablet 80 Mg PO QHS Levothyroxine Sodium 100 Mcg Tablet 100 Mcg PO DAILYAC Keppra (Levetiracetam) 500 Mg Tablet 500 Mg PO BID Heparin 5,000 Unit/5 ml-Ns (Heparin Sod,Porcine/0.9 % NaCl) 5,000 Unit/5 Ml Syringe 5,000 Unit IM Q8HRS Vitamin D2 (Ergocalciferol (Vitamin D2)) 50,000 Unit Capsule 50,000 Unit PO WEEKLY Benazepril Hcl 20 Mg Tablet 20 Mg PO DAILY Aspirin 81 Mg Tab.chew 81 Mg PO DAILY Amlodipine Besylate 5 Mg Tablet 5 Mg PO DAILY Tylenol (Acetaminophen) 325 Mg Tablet 650 Mg PO PRN Q4HRS PRN I have reviewed the current psychotropics carefully including drug interactions. Risk benefit ratio favors no change other than as noted in my dictated progress note. Diagnosis: Problems: (1) Anxiety disorder (2) Mild cognitive disorder (3) Major depressive disorder, recurrent episode (4) Impulse control disorder ANTONIA BAILEY MD Oct 04, 2018 22:52
[2018-10-05] MEDS: LEVOTHYROXINE 100 MCG TABLET PO SCH (05:24)
[2018-10-05 05:50] VITALS: BP 152/78
[2018-10-05] MEDS: INSULIN LISPRO 300 UNITS/3 ML INSULN.PEN. SQ SCH ×3 (08:09→17:21)
[2018-10-05] MEDS: ASPIRIN 81 MG TAB.CHEW PO SCH (08:20)
[2018-10-05] MEDS: GABAPENTIN 100 MG CAPSULE. PO SCH ×3 (08:21→19:51)
[2018-10-05] MEDS: levETIRAcetam 500 MG TABLET PO SCH ×2 (08:21→19:52)
[2018-10-05] MEDS: LACTOBACILLUS RHAMNOSUS GG 1 CAPSULE. PO SCH ×2 (08:21→19:51)
[2018-10-05] MEDS: MEMANTINE 10 MG TABLET. PO SCH ×2 (08:21→19:52)
[2018-10-05] MEDS: buPROPion XL 150 MG TAB.ER.24H PO SCH (08:22)
[2018-10-05] MEDS: LISINOPRIL 20 MG TABLET PO SCH (08:22)
[2018-10-05] MEDS: amLODIPine BESYLATE 5 MG TABLET PO SCH (08:22)
[2018-10-05 16:23] VITALS: BP 132/82
[2018-10-05] MEDS: ARIPiprazole 5 MG TABLET PO SCH (19:51)
[2018-10-05] MEDS: ATORVASTATIN CALCIUM 20 MG TABLET PO SCH (19:51)
[2018-10-05] MEDS: DULoxetine HCL 60 MG CAPSULE.DR PO SCH (19:52)
[2018-10-05] MEDS: NITROFURANTOIN MONOHYD/M-CRYST 100 MG CAPSULE. PO SCH (19:52)
[2018-10-05] MEDS: ENOXAPARIN 40 MG/0.4 ML SYRINGE. SQ SCH (19:53)
[2018-10-05] MEDS: INSULIN GLARGINE 300 UNITS/3 ML INSULN.PEN. SQ SCH (19:54)
--- NOTE | 2018-10-05 21:12 | PDOC ---
Exam Note: José Miguel Note: Please also refer to the separate dictated note~for this date of service dictated separately.~Patient seen individually. Discussed the patient with Nursing staff reviewed the chart.~Reviewed interim history and current functioning. Reviewed vital signs,~Labs/ Radiology~and current medications noted below. Continue current treatment with the changes noted in the dictated addendum note Assessment: Vital Signs: Vital Signs Date Time Temp Pulse Resp B/P (MAP) Pulse Ox O2 Delivery O2 Flow Rate FiO2 10/05/18 16:23 97.7 80 16 132/82 (99) 98 Room Air I&O Intake and Output 10/05/18 07:01 Intake Total 800 ml Balance 800 ml Intake Oral 800 ml Labs: Laboratory Tests Test 10/05/18 07:35 10/05/18 12:05 10/05/18 16:32 10/05/18 19:18 Glucose (Fingerstick) 194 mg/dL (70-99) H 248 mg/dL (70-99) H 218 mg/dL (70-99) H 152 mg/dL (70-99) H Current Medications: Meds: Current Medications Acetaminophen (Tylenol) 650 mg PRN Q6HRS PRN PO PAIN / TEMP Last administered on 10/04/18at 22:19; Start 08/08/18 at 20:00 Multi-Ingredient Ointment (Analgesic [place]) 1 frank PRN QID PRN TP MUSCLE PAIN Last administered on 09/28/18at 23:29; Start 08/08/18 at 20:00 Al Hydroxide/Mg Hydroxide (Mylanta Plus Xs) 15 ml PRN AFTMEALHC PRN PO DYSPEPSIA; Start 08/08/18 at 20:00 Magnesium Hydroxide (Milk Of Magnesia) 2,400 mg PRN QHS PRN PO CONSTIPATION Last administered on 09/25/18at 20:15; Start 08/08/18 at 20:00 Memantine (Namenda) 10 mg BID PO Last administered on 10/05/18at 19:52; Start at 22:00 Quetiapine Fumarate (SEROquel) 25 mg DAILY PO Last administered on 09/05/18at 08 :51; Start 08/09/18 at 09:00; Stop 09/05/18 at 11:58; Status DC Quetiapine Fumarate (SEROquel) 75 mg HS PO Last administered on 09/21/18at 20: 38; Start 08/08/18 at 22:00; Stop 09/22/18 at 18:49; Status DC Venlafaxine HCl (Effexor) 50 mg TID PO Last administered on 08/10/18at 13:40; Start 08/09/18 at 09:00; Stop 08/10/18 at 17:54; Status DC Acetaminophen (Tylenol) 650 mg PRN Q4HRS PRN PO PAIN / TEMP; Start 08/08/18 at 21:30; Status Cancel Levothyroxine Sodium (Synthroid) 100 mcg DAILY06 PO Last administered on 05:24; Start 08/09/18 at 06:00 Amlodipine Besylate (Norvasc) 5 mg DAILY PO Last administered on 10/05/18 08:22 ; Start 08/09/18 at 09:00 Aspirin (Children'S Aspirin) 81 mg DAILY PO Last administered on 10/05/18 08:20 ; Start 08/09/18 at 09:00 Lisinopril (Prinivil) 20 mg DAILY PO Last administered on 10/05/18 08:22; Start 08/09/18 at 09:00 Vitamin D (Vitamin D3) 50,000 unit WEEKLY PO Last administered on 10/03/18 08: 28; Start 08/15/18 at 09:00 Heparin Sodium (Porcine) (Heparin Sq) 5,000 unit Q8HRS SQ Last administered on 08/27/18at 22:37; Start 08/08/18 at 22:00; Stop 08/27/18 at 23:00; Status DC Levetiracetam (Keppra) 500 mg BID PO Last administered on 10/05/18 19:52; Start 08/08/18 at 22:00 Atorvastatin Calcium (Lipitor) 20 mg QHS PO Last administered on 10/05/18 19:51 ; Start 08/09/18 at 21:00 Insulin Human Lispro (HumaLOG) 0-5 UNITS TIDWMEALS SQ Last administered on 09/05at 09:13; Start 08/09/18 at 08:00; Stop 09/05/18 at 14:16; Status DC Dextrose 12.5 gm PRN Q15MIN PRN IV SEE COMMENTS; Start 08/09/18 at 05:45; Stop 09/05/18 at 14:16; Status DC Duloxetine HCl (Cymbalta) 30 mg DAILY PO Last administered on 08/12/18at 08:06 ; Start 08/11/18 at 09:00; Stop 08/12/18 at 09:02; Status DC Duloxetine HCl (Cymbalta) 60 mg DAILY PO Last administered on 09/28/18at 08:28 ; Start 08/13/18 at 09:00; Stop 09/28/18 at 19:49; Status DC Cephalexin HCl (Keflex) 500 mg TID PO Last administered on 08/20/18at 19:28; Start 08/11/18 at 09:00; Stop 08/21/18 at 08:59; Status DC Lactobacillus Rhamnosus (Culturelle) 1 cap BID PO Last administered on at 19:51; Start 08/11/18 at 09:00 Levothyroxine Sodium (Synthroid) 100 mcg 1X ONCE PO Last administered on 08/15at 06:23; Start 08/15/18 at 06:30; Stop 08/15/18 at 06:31; Status DC Olanzapine (ZyPREXA ZYDIS) 10 mg PRN BID PRN PO AGITATION; Start 08/24/18 at 17:45; Stop 09/22/18 at 12:01; Status DC Olanzapine (ZyPREXA IM) 5 mg PRN BID PRN IM AGITATION Last administered on at 17:53; Start 08/24/18 at 17:45; Stop 09/22/18 at 12:01; Status DC Cefpodoxime Proxetil (Vantin) 200 mg BID PO Last administered on 08/27/18at 08: 28; Start 08/25/18 at 17:30; Stop 08/27/18 at 17:27; Status DC Gabapentin (Neurontin) 100 mg BID PO Last administered on 09/13/18at 09:05; Start 08/25/18 at 21:00; Stop 09/13/18 at 16:30; Status DC Quetiapine Fumarate (SEROquel) 12.5 mg DAILY16 PO Last administered on at 16:29; Start 08/27/18 at 16:00; Stop 09/16/18 at 16:52; Status DC Heparin Sodium (Porcine) (Heparin Sodium) 5,000 unit Q8HRS SQ Last administered on 09/25/18at 13:45; Start 08/28/18 at 06:00; Stop 09/25/18 at 18 :16; Status DC Ciprofloxacin (Cipro) 500 mg BID PO Last administered on 09/06/18at 08:09; Start 08/27/18 at 21:00; Stop 09/06/18 at 20:59; Status DC Insulin Human Lispro (HumaLOG) 0-9 UNITS TIDWMEALS SQ Last administered on 17:21; Start 09/05/18 at 17:00 Dextrose 12.5 gm PRN Q15MIN PRN IV SEE COMMENTS; Start 09/05/18 at 14:15 Gabapentin (Neurontin) 200 mg TID PO Last administered on 10/05/18 19:51; Start 09/13/18 at 21:00 Bupropion HCl (Wellbutrin Xl) 150 mg DAILY PO Last administered on 10/05/18 08: 22; Start 09/17/18 at 09:00 Insulin Glargine (Lantus) 15 units QHS SQ Last administered on 10/05/18 19:54; Start 09/19/18 at 21:00 Olanzapine (ZyPREXA ZYDIS) 2.5 mg PRN Q2HR PRN PO PSYCHOSIS Last administered on 09/30/18 13:17; Start 09/22/18 at 12:00 Quetiapine Fumarate (SEROquel) 50 mg HS PO Last administered on 09/27/18at 21: 28; Start 09/22/18 at 21:00; Stop 09/28/18 at 19:49; Status DC Enoxaparin Sodium (Lovenox 40mg Syringe) 40 mg Q24H SQ Last administered on 10/05 19:53; Start 09/25/18 at 21:00 Duloxetine HCl (Cymbalta) 60 mg HS PO Last administered on 10/05/18 19:52; Start 09/29/18 at 21:00 Quetiapine Fumarate (SEROquel) 25 mg HS PO Last administered on 09/29/18at 20: 59; Start 09/28/18 at 21:00; Stop 09/30/18 at 17:23; Status DC Aripiprazole (Abilify) 2.5 mg QHS PO Last administered on 10/05/18at 19:51; Start 09/30/18 at 21:00 Guaifenesin (Robitussin Dm) 10 ml PRN Q6HRS PRN PO COUGH Last administered on at 19:11; Start 10/02/18 at 15:00 Nitrofurantoin Macrocrystals (Macrobid) 100 mg QHS PO Last administered on at 19:52; Start 10/03/18 at 21:00 Active Scripts Active Reported Seroquel (Quetiapine Fumarate) 25 Mg Tablet 12.5 Mg PO DAILY16 Olanzapine 10 Mg Tablet 10 Mg PO PRN BID PRN Olanzapine Inj (Olanzapine) 10 Mg Vial 5 Mg IM PRN BID PRN Analgesic [place] (Methyl Salicylate/Menthol) 28 Gm Oint...g. 1 Frank TP PRN QID PRN Milk Of Magnesia (Magnesium Hydroxide) 2,400 Mg/10 Ml Oral.susp 2,400 Mg PO PRN QHS PRN Advanced Antacid Liquid (Mag Hydrox/Al Hydrox/Simeth) 355 Ml Oral.susp 15 Ml PO PRN AFTMEALHC PRN Culturelle (Lactobacillus Rhamnosus Gg) 1 Each Cap.sprink 1 Cap PO BID Humalog (Insulin Lispro) 100 Unit/1 Ml Cartridge 0-5 Unit SQ TIDWMEALS Gabapentin 100 Mg Capsule 100 Mg PO BID Cymbalta (Duloxetine Hcl) 60 Mg Capsule.dr 60 Mg PO DAILY Ciprofloxacin Hcl 500 Mg Tablet 500 Mg PO BID Venlafaxine Hcl Er (Venlafaxine Hcl) 150 Mg Tab.er.24 150 Mg PO DAILYWBKFT Quetiapine Fumarate 25 Mg Tablet 25 Mg PO DAILY Seroquel (Quetiapine Fumarate) 25 Mg Tablet 75 Mg PO QHS Namenda (Memantine Hcl) 10 Mg Tablet 10 Mg PO BID Lovastatin 40 Mg Tablet 80 Mg PO QHS Levothyroxine Sodium 100 Mcg Tablet 100 Mcg PO DAILYAC Keppra (Levetiracetam) 500 Mg Tablet 500 Mg PO BID Heparin 5,000 Unit/5 ml-Ns (Heparin Sod,Porcine/0.9 % NaCl) 5,000 Unit/5 Ml Syringe 5,000 Unit IM Q8HRS Vitamin D2 (Ergocalciferol (Vitamin D2)) 50,000 Unit Capsule 50,000 Unit PO WEEKLY Benazepril Hcl 20 Mg Tablet 20 Mg PO DAILY Aspirin 81 Mg Tab.chew 81 Mg PO DAILY Amlodipine Besylate 5 Mg Tablet 5 Mg PO DAILY Tylenol (Acetaminophen) 325 Mg Tablet 650 Mg PO PRN Q4HRS PRN I have reviewed the current psychotropics carefully including drug interactions. Risk benefit ratio favors no change other than as noted in my dictated progress note. Diagnosis: Problems: (1) Anxiety disorder (2) Mild cognitive disorder (3) Major depressive disorder, recurrent episode (4) Impulse control disorder ANTONIA BAILEY MD Oct 05, 2018 21:12
--- NOTE | 2018-10-05 22:03 | PN ---
DATE: 10/05/2018 This note covers elements not covered in my initial note of 10/05/2018. SUBJECTIVE: I met with the patient in the evening. The patient is being tired, withdrawn. No overt behaviors noted. UA was mixed ginger. Not reflective of UTI. REVIEW OF SYSTEMS: Ambulation impaired, in wheelchair. No CV, , pulmonary, eye system symptoms on review, does complain of tiredness. MENTAL STATUS EXAM: Oriented to herself and situation. Speech, often responses monosyllabic. Abstraction fair, computation impaired, language function intact. Mood and affect still depressed, withdrawn, but she was able to interact verbally with me as I met with her. LABORATORY DATA: Reviewed. IMPRESSION: Unchanged from initial note. PLAN: No change from initial note. MAN Han BAILEY MD DR: RAYMON/christen JOB#: [id number] / [id number]
[2018-10-06] MEDS: LEVOTHYROXINE 100 MCG TABLET PO SCH (05:15)
[2018-10-06 06:35] VITALS: BP 132/79
[2018-10-06] MEDS: INSULIN LISPRO 300 UNITS/3 ML INSULN.PEN. SQ SCH ×3 (08:10→17:03)
[2018-10-06] MEDS: LACTOBACILLUS RHAMNOSUS GG 1 CAPSULE. PO SCH ×2 (08:39→21:15)
[2018-10-06] MEDS: levETIRAcetam 500 MG TABLET PO SCH ×2 (08:39→21:16)
[2018-10-06] MEDS: amLODIPine BESYLATE 5 MG TABLET PO SCH (08:39)
[2018-10-06] MEDS: MEMANTINE 10 MG TABLET. PO SCH ×2 (08:39→21:16)
[2018-10-06] MEDS: ASPIRIN 81 MG TAB.CHEW PO SCH (08:39)
[2018-10-06] MEDS: GABAPENTIN 100 MG CAPSULE. PO SCH ×3 (08:39→21:16)
[2018-10-06] MEDS: buPROPion XL 150 MG TAB.ER.24H PO SCH (08:46)
[2018-10-06] MEDS: LISINOPRIL 20 MG TABLET PO SCH (08:46)
--- NOTE | 2018-10-06 10:55 | PN ---
DATE: 10/04/2018 This is a late entry 10/04/2018, covers elements not covered in my initial note. SUBJECTIVE: I met with the patient in the evening. The patient slept 6-1/2 hours previous night. She remains withdrawn. UA is positive and she is started on Macrobid. She is somewhat depressed, drowsy, crying at times, talking about going home with Franko. REVIEW OF SYSTEMS: Positive for tiredness, impaired ambulation, in wheelchair. No CV, , pulmonary, eye, ENT system symptoms on review quite withdrawn as I met with her individually. MENTAL STATUS EXAM: Reasonably oriented. Speech has some latency, coherent, often responses monosyllabic. Abstraction fair, computation impaired, language function intact, attention span short. Mood and affect withdrawn. LABORATORY DATA: Reviewed. IMPRESSION: Major depressive disorder with psychotic features; anxiety disorder, unspecified. Rest unchanged. PLAN: No change from initial note. ANTONIA BAILEY MD DR: RAYMON/christen JOB#: [id number] / [id number]
[2018-10-06 16:14] VITALS: BP 124/84
[2018-10-06] MEDS: ATORVASTATIN CALCIUM 20 MG TABLET PO SCH (21:15)
[2018-10-06] MEDS: ARIPiprazole 5 MG TABLET PO SCH (21:16)
[2018-10-06] MEDS: DULoxetine HCL 60 MG CAPSULE.DR PO SCH (21:16)
[2018-10-06] MEDS: NITROFURANTOIN MONOHYD/M-CRYST 100 MG CAPSULE. PO SCH (21:16)
[2018-10-06] MEDS: INSULIN GLARGINE 300 UNITS/3 ML INSULN.PEN. SQ SCH (21:17)
[2018-10-06] MEDS: ENOXAPARIN 40 MG/0.4 ML SYRINGE. SQ SCH (21:18)
--- NOTE | 2018-10-06 22:52 | PDOC ---
Exam Note: José Miguel Note: Please also refer to the separate dictated note~for this date of service dictated separately.~Patient seen individually. Discussed the patient with Nursing staff reviewed the chart.~Reviewed interim history and current functioning. Reviewed vital signs,~Labs/ Radiology~and current medications noted below. Continue current treatment with the changes noted in the dictated addendum note Assessment: Vital Signs: Vital Signs Date Time Temp Pulse Resp B/P (MAP) Pulse Ox O2 Delivery O2 Flow Rate FiO2 10/06/18 16:14 97.9 74 18 124/84 (97) 99 10/05/18 16:23 Room Air I&O Intake and Output 10/06/18 07:01 Intake Total 1320 ml Balance 1320 ml Intake Oral 1320 ml Labs: Laboratory Tests Test 10/06/18 07:57 10/06/18 11:28 10/06/18 16:44 10/06/18 19:08 Glucose (Fingerstick) 158 mg/dL (70-99) H 228 mg/dL (70-99) H 233 mg/dL (70-99) H 238 mg/dL (70-99) H Current Medications: Meds: Current Medications Acetaminophen (Tylenol) 650 mg PRN Q6HRS PRN PO PAIN / TEMP Last administered on 10/04/18at 22:19; Start 08/08/18 at 20:00 Multi-Ingredient Ointment (Analgesic [place]) 1 frank PRN QID PRN TP MUSCLE PAIN Last administered on 09/28/18at 23:29; Start 08/08/18 at 20:00 Al Hydroxide/Mg Hydroxide (Mylanta Plus Xs) 15 ml PRN AFTMEALHC PRN PO DYSPEPSIA; Start 08/08/18 at 20:00 Magnesium Hydroxide (Milk Of Magnesia) 2,400 mg PRN QHS PRN PO CONSTIPATION Last administered on 09/25/18at 20:15; Start 08/08/18 at 20:00 Memantine (Namenda) 10 mg BID PO Last administered on 10/06/18at 21:16; Start at 22:00 Quetiapine Fumarate (SEROquel) 25 mg DAILY PO Last administered on 09/05/18at 08 :51; Start 08/09/18 at 09:00; Stop 09/05/18 at 11:58; Status DC Quetiapine Fumarate (SEROquel) 75 mg HS PO Last administered on 09/21/18at 20: 38; Start 08/08/18 at 22:00; Stop 09/22/18 at 18:49; Status DC Venlafaxine HCl (Effexor) 50 mg TID PO Last administered on 08/10/18at 13:40; Start 08/09/18 at 09:00; Stop 08/10/18 at 17:54; Status DC Acetaminophen (Tylenol) 650 mg PRN Q4HRS PRN PO PAIN / TEMP; Start 08/08/18 at 21:30; Status Cancel Levothyroxine Sodium (Synthroid) 100 mcg DAILY06 PO Last administered on 05:15; Start 08/09/18 at 06:00 Amlodipine Besylate (Norvasc) 5 mg DAILY PO Last administered on 10/06/18 08:39 ; Start 08/09/18 at 09:00 Aspirin (Children'S Aspirin) 81 mg DAILY PO Last administered on 10/06/18 08:39 ; Start 08/09/18 at 09:00 Lisinopril (Prinivil) 20 mg DAILY PO Last administered on 10/06/18 08:46; Start 08/09/18 at 09:00 Vitamin D (Vitamin D3) 50,000 unit WEEKLY PO Last administered on 10/03/18 08: 28; Start 08/15/18 at 09:00 Heparin Sodium (Porcine) (Heparin Sq) 5,000 unit Q8HRS SQ Last administered on 08/27/18at 22:37; Start 08/08/18 at 22:00; Stop 08/27/18 at 23:00; Status DC Levetiracetam (Keppra) 500 mg BID PO Last administered on 10/06/18 21:16; Start 08/08/18 at 22:00 Atorvastatin Calcium (Lipitor) 20 mg QHS PO Last administered on 10/06/18 21:15 ; Start 08/09/18 at 21:00 Insulin Human Lispro (HumaLOG) 0-5 UNITS TIDWMEALS SQ Last administered on 09/05 09:13; Start 08/09/18 at 08:00; Stop 09/05/18 at 14:16; Status DC Dextrose 12.5 gm PRN Q15MIN PRN IV SEE COMMENTS; Start 08/09/18 at 05:45; Stop 09/05/18 at 14:16; Status DC Duloxetine HCl (Cymbalta) 30 mg DAILY PO Last administered on 08/12/18at 08:06 ; Start 08/11/18 at 09:00; Stop 08/12/18 at 09:02; Status DC Duloxetine HCl (Cymbalta) 60 mg DAILY PO Last administered on 09/28/18at 08:28 ; Start 08/13/18 at 09:00; Stop 09/28/18 at 19:49; Status DC Cephalexin HCl (Keflex) 500 mg TID PO Last administered on 08/20/18at 19:28; Start 08/11/18 at 09:00; Stop 08/21/18 at 08:59; Status DC Lactobacillus Rhamnosus (Culturelle) 1 cap BID PO Last administered on at 21:15; Start 08/11/18 at 09:00 Levothyroxine Sodium (Synthroid) 100 mcg 1X ONCE PO Last administered on 08/15at 06:23; Start 08/15/18 at 06:30; Stop 08/15/18 at 06:31; Status DC Olanzapine (ZyPREXA ZYDIS) 10 mg PRN BID PRN PO AGITATION; Start 08/24/18 at 17:45; Stop 09/22/18 at 12:01; Status DC Olanzapine (ZyPREXA IM) 5 mg PRN BID PRN IM AGITATION Last administered on at 17:53; Start 08/24/18 at 17:45; Stop 09/22/18 at 12:01; Status DC Cefpodoxime Proxetil (Vantin) 200 mg BID PO Last administered on 08/27/18at 08: 28; Start 08/25/18 at 17:30; Stop 08/27/18 at 17:27; Status DC Gabapentin (Neurontin) 100 mg BID PO Last administered on 09/13/18at 09:05; Start 08/25/18 at 21:00; Stop 09/13/18 at 16:30; Status DC Quetiapine Fumarate (SEROquel) 12.5 mg DAILY16 PO Last administered on at 16:29; Start 08/27/18 at 16:00; Stop 09/16/18 at 16:52; Status DC Heparin Sodium (Porcine) (Heparin Sodium) 5,000 unit Q8HRS SQ Last administered on 09/25/18at 13:45; Start 08/28/18 at 06:00; Stop 09/25/18 at 18 :16; Status DC Ciprofloxacin (Cipro) 500 mg BID PO Last administered on 09/06/18at 08:09; Start 08/27/18 at 21:00; Stop 09/06/18 at 20:59; Status DC Insulin Human Lispro (HumaLOG) 0-9 UNITS TIDWMEALS SQ Last administered on 17:03; Start 09/05/18 at 17:00 Dextrose 12.5 gm PRN Q15MIN PRN IV SEE COMMENTS; Start 09/05/18 at 14:15 Gabapentin (Neurontin) 200 mg TID PO Last administered on 10/06/18 21:16; Start 09/13/18 at 21:00 Bupropion HCl (Wellbutrin Xl) 150 mg DAILY PO Last administered on 10/06/18 08: 46; Start 09/17/18 at 09:00 Insulin Glargine (Lantus) 15 units QHS SQ Last administered on 10/06/18 21:17; Start 09/19/18 at 21:00 Olanzapine (ZyPREXA ZYDIS) 2.5 mg PRN Q2HR PRN PO PSYCHOSIS Last administered on 09/30/18at 13:17; Start 09/22/18 at 12:00 Quetiapine Fumarate (SEROquel) 50 mg HS PO Last administered on 09/27/18at 21: 28; Start 09/22/18 at 21:00; Stop 09/28/18 at 19:49; Status DC Enoxaparin Sodium (Lovenox 40mg Syringe) 40 mg Q24H SQ Last administered on 10/06 21:18; Start 09/25/18 at 21:00 Duloxetine HCl (Cymbalta) 60 mg HS PO Last administered on 10/06/18 21:16; Start 09/29/18 at 21:00 Quetiapine Fumarate (SEROquel) 25 mg HS PO Last administered on 09/29/18at 20: 59; Start 09/28/18 at 21:00; Stop 09/30/18 at 17:23; Status DC Aripiprazole (Abilify) 2.5 mg QHS PO Last administered on 10/06/18at 21:16; Start 09/30/18 at 21:00 Guaifenesin (Robitussin Dm) 10 ml PRN Q6HRS PRN PO COUGH Last administered on at 19:11; Start 10/02/18 at 15:00 Nitrofurantoin Macrocrystals (Macrobid) 100 mg QHS PO Last administered on at 21:16; Start 10/03/18 at 21:00 Active Scripts Active Reported Seroquel (Quetiapine Fumarate) 25 Mg Tablet 12.5 Mg PO DAILY16 Olanzapine 10 Mg Tablet 10 Mg PO PRN BID PRN Olanzapine Inj (Olanzapine) 10 Mg Vial 5 Mg IM PRN BID PRN Analgesic [place] (Methyl Salicylate/Menthol) 28 Gm Oint...g. 1 Frank TP PRN QID PRN Milk Of Magnesia (Magnesium Hydroxide) 2,400 Mg/10 Ml Oral.susp 2,400 Mg PO PRN QHS PRN Advanced Antacid Liquid (Mag Hydrox/Al Hydrox/Simeth) 355 Ml Oral.susp 15 Ml PO PRN AFTMEALHC PRN Culturelle (Lactobacillus Rhamnosus Gg) 1 Each Cap.sprink 1 Cap PO BID Humalog (Insulin Lispro) 100 Unit/1 Ml Cartridge 0-5 Unit SQ TIDWMEALS Gabapentin 100 Mg Capsule 100 Mg PO BID Cymbalta (Duloxetine Hcl) 60 Mg Capsule.dr 60 Mg PO DAILY Ciprofloxacin Hcl 500 Mg Tablet 500 Mg PO BID Venlafaxine Hcl Er (Venlafaxine Hcl) 150 Mg Tab.er.24 150 Mg PO DAILYWBKFT Quetiapine Fumarate 25 Mg Tablet 25 Mg PO DAILY Seroquel (Quetiapine Fumarate) 25 Mg Tablet 75 Mg PO QHS Namenda (Memantine Hcl) 10 Mg Tablet 10 Mg PO BID Lovastatin 40 Mg Tablet 80 Mg PO QHS Levothyroxine Sodium 100 Mcg Tablet 100 Mcg PO DAILYAC Keppra (Levetiracetam) 500 Mg Tablet 500 Mg PO BID Heparin 5,000 Unit/5 ml-Ns (Heparin Sod,Porcine/0.9 % NaCl) 5,000 Unit/5 Ml Syringe 5,000 Unit IM Q8HRS Vitamin D2 (Ergocalciferol (Vitamin D2)) 50,000 Unit Capsule 50,000 Unit PO WEEKLY Benazepril Hcl 20 Mg Tablet 20 Mg PO DAILY Aspirin 81 Mg Tab.chew 81 Mg PO DAILY Amlodipine Besylate 5 Mg Tablet 5 Mg PO DAILY Tylenol (Acetaminophen) 325 Mg Tablet 650 Mg PO PRN Q4HRS PRN I have reviewed the current psychotropics carefully including drug interactions. Risk benefit ratio favors no change other than as noted in my dictated progress note. Diagnosis: Problems: (1) Anxiety disorder (2) Mild cognitive disorder (3) Major depressive disorder, recurrent episode (4) Impulse control disorder ANTONIA BAILEY MD Oct 06, 2018 22:52
[2018-10-07 05:50] VITALS: BP 129/83
[2018-10-07] MEDS: LEVOTHYROXINE 100 MCG TABLET PO SCH (06:06)
[2018-10-07] MEDS: MEMANTINE 10 MG TABLET. PO SCH ×2 (08:11→20:49)
[2018-10-07] MEDS: levETIRAcetam 500 MG TABLET PO SCH ×2 (08:11→20:49)
[2018-10-07] MEDS: ASPIRIN 81 MG TAB.CHEW PO SCH (08:11)
[2018-10-07] MEDS: buPROPion XL 150 MG TAB.ER.24H PO SCH (08:12)
[2018-10-07] MEDS: LACTOBACILLUS RHAMNOSUS GG 1 CAPSULE. PO SCH ×2 (08:12→20:49)
[2018-10-07] MEDS: LISINOPRIL 20 MG TABLET PO SCH (08:13)
[2018-10-07] MEDS: amLODIPine BESYLATE 5 MG TABLET PO SCH (08:14)
[2018-10-07] MEDS: GABAPENTIN 100 MG CAPSULE. PO SCH ×3 (08:17→20:52)
[2018-10-07] MEDS: INSULIN LISPRO 300 UNITS/3 ML INSULN.PEN. SQ SCH ×3 (08:19→17:21)
[2018-10-07 16:15] VITALS: BP 155/85
[2018-10-07] MEDS: ARIPiprazole 5 MG TABLET PO SCH (20:49)
[2018-10-07] MEDS: DULoxetine HCL 60 MG CAPSULE.DR PO SCH (20:49)
[2018-10-07] MEDS: ATORVASTATIN CALCIUM 20 MG TABLET PO SCH (20:49)
[2018-10-07] MEDS: NITROFURANTOIN MONOHYD/M-CRYST 100 MG CAPSULE. PO SCH (20:49)
[2018-10-07] MEDS: ENOXAPARIN 40 MG/0.4 ML SYRINGE. SQ SCH (20:53)
[2018-10-07] MEDS: INSULIN GLARGINE 300 UNITS/3 ML INSULN.PEN. SQ SCH (20:54)
--- NOTE | 2018-10-07 22:43 | PDOC ---
Exam Note: José Miguel Note: Please also refer to the separate dictated note~for this date of service dictated separately.~Patient seen individually. Discussed the patient with Nursing staff reviewed the chart.~Reviewed interim history and current functioning. Reviewed vital signs,~Labs/ Radiology~and current medications noted below. Continue current treatment with the changes noted in the dictated addendum note Assessment: Vital Signs: Vital Signs Date Time Temp Pulse Resp B/P (MAP) Pulse Ox O2 Delivery O2 Flow Rate FiO2 10/07/18 16:15 97.9 68 18 155/85 (108) 97 10/05/18 16:23 Room Air I&O Intake and Output 10/07/18 07:01 Intake Total 1060 ml Balance 1060 ml Intake Oral 1060 ml Labs: Laboratory Tests Test 10/07/18 07:25 10/07/18 11:25 10/07/18 16:46 10/07/18 19:05 Glucose (Fingerstick) 167 mg/dL (70-99) H 222 mg/dL (70-99) H 164 mg/dL (70-99) H 207 mg/dL (70-99) H Current Medications: Meds: Current Medications Acetaminophen (Tylenol) 650 mg PRN Q6HRS PRN PO PAIN / TEMP Last administered on 10/04/18at 22:19; Start 08/08/18 at 20:00 Multi-Ingredient Ointment (Analgesic [place]) 1 frank PRN QID PRN TP MUSCLE PAIN Last administered on 09/28/18at 23:29; Start 08/08/18 at 20:00 Al Hydroxide/Mg Hydroxide (Mylanta Plus Xs) 15 ml PRN AFTMEALHC PRN PO DYSPEPSIA; Start 08/08/18 at 20:00 Magnesium Hydroxide (Milk Of Magnesia) 2,400 mg PRN QHS PRN PO CONSTIPATION Last administered on 09/25/18at 20:15; Start 08/08/18 at 20:00 Memantine (Namenda) 10 mg BID PO Last administered on 10/07/18at 20:49; Start at 22:00 Quetiapine Fumarate (SEROquel) 25 mg DAILY PO Last administered on 09/05/18at 08 :51; Start 08/09/18 at 09:00; Stop 09/05/18 at 11:58; Status DC Quetiapine Fumarate (SEROquel) 75 mg HS PO Last administered on 09/21/18at 20: 38; Start 08/08/18 at 22:00; Stop 09/22/18 at 18:49; Status DC Venlafaxine HCl (Effexor) 50 mg TID PO Last administered on 08/10/18at 13:40; Start 08/09/18 at 09:00; Stop 08/10/18 at 17:54; Status DC Acetaminophen (Tylenol) 650 mg PRN Q4HRS PRN PO PAIN / TEMP; Start 08/08/18 at 21:30; Status Cancel Levothyroxine Sodium (Synthroid) 100 mcg DAILY06 PO Last administered on 06:06; Start 08/09/18 at 06:00 Amlodipine Besylate (Norvasc) 5 mg DAILY PO Last administered on 10/07/18 08:14 ; Start 08/09/18 at 09:00 Aspirin (Children'S Aspirin) 81 mg DAILY PO Last administered on 10/07/18 08:11 ; Start 08/09/18 at 09:00 Lisinopril (Prinivil) 20 mg DAILY PO Last administered on 10/07/18 08:13; Start 08/09/18 at 09:00 Vitamin D (Vitamin D3) 50,000 unit WEEKLY PO Last administered on 10/03/18 08: 28; Start 08/15/18 at 09:00 Heparin Sodium (Porcine) (Heparin Sq) 5,000 unit Q8HRS SQ Last administered on 08/27/18at 22:37; Start 08/08/18 at 22:00; Stop 08/27/18 at 23:00; Status DC Levetiracetam (Keppra) 500 mg BID PO Last administered on 10/07/18 20:49; Start 08/08/18 at 22:00 Atorvastatin Calcium (Lipitor) 20 mg QHS PO Last administered on 10/07/18 20:49 ; Start 08/09/18 at 21:00 Insulin Human Lispro (HumaLOG) 0-5 UNITS TIDWMEALS SQ Last administered on 09/05at 09:13; Start 08/09/18 at 08:00; Stop 09/05/18 at 14:16; Status DC Dextrose 12.5 gm PRN Q15MIN PRN IV SEE COMMENTS; Start 08/09/18 at 05:45; Stop 09/05/18 at 14:16; Status DC Duloxetine HCl (Cymbalta) 30 mg DAILY PO Last administered on 08/12/18at 08:06 ; Start 08/11/18 at 09:00; Stop 08/12/18 at 09:02; Status DC Duloxetine HCl (Cymbalta) 60 mg DAILY PO Last administered on 09/28/18at 08:28 ; Start 08/13/18 at 09:00; Stop 09/28/18 at 19:49; Status DC Cephalexin HCl (Keflex) 500 mg TID PO Last administered on 08/20/18at 19:28; Start 08/11/18 at 09:00; Stop 08/21/18 at 08:59; Status DC Lactobacillus Rhamnosus (Culturelle) 1 cap BID PO Last administered on at 20:49; Start 08/11/18 at 09:00 Levothyroxine Sodium (Synthroid) 100 mcg 1X ONCE PO Last administered on 08/15at 06:23; Start 08/15/18 at 06:30; Stop 08/15/18 at 06:31; Status DC Olanzapine (ZyPREXA ZYDIS) 10 mg PRN BID PRN PO AGITATION; Start 08/24/18 at 17:45; Stop 09/22/18 at 12:01; Status DC Olanzapine (ZyPREXA IM) 5 mg PRN BID PRN IM AGITATION Last administered on at 17:53; Start 08/24/18 at 17:45; Stop 09/22/18 at 12:01; Status DC Cefpodoxime Proxetil (Vantin) 200 mg BID PO Last administered on 08/27/18at 08: 28; Start 08/25/18 at 17:30; Stop 08/27/18 at 17:27; Status DC Gabapentin (Neurontin) 100 mg BID PO Last administered on 09/13/18at 09:05; Start 08/25/18 at 21:00; Stop 09/13/18 at 16:30; Status DC Quetiapine Fumarate (SEROquel) 12.5 mg DAILY16 PO Last administered on at 16:29; Start 08/27/18 at 16:00; Stop 09/16/18 at 16:52; Status DC Heparin Sodium (Porcine) (Heparin Sodium) 5,000 unit Q8HRS SQ Last administered on 09/25/18at 13:45; Start 08/28/18 at 06:00; Stop 09/25/18 at 18 :16; Status DC Ciprofloxacin (Cipro) 500 mg BID PO Last administered on 09/06/18at 08:09; Start 08/27/18 at 21:00; Stop 09/06/18 at 20:59; Status DC Insulin Human Lispro (HumaLOG) 0-9 UNITS TIDWMEALS SQ Last administered on 17:21; Start 09/05/18 at 17:00 Dextrose 12.5 gm PRN Q15MIN PRN IV SEE COMMENTS; Start 09/05/18 at 14:15 Gabapentin (Neurontin) 200 mg TID PO Last administered on 10/07/18 20:52; Start 09/13/18 at 21:00 Bupropion HCl (Wellbutrin Xl) 150 mg DAILY PO Last administered on 10/07/18 08: 12; Start 09/17/18 at 09:00 Insulin Glargine (Lantus) 15 units QHS SQ Last administered on 10/07/18 20:54; Start 09/19/18 at 21:00 Olanzapine (ZyPREXA ZYDIS) 2.5 mg PRN Q2HR PRN PO PSYCHOSIS Last administered on 09/30/18 13:17; Start 09/22/18 at 12:00 Quetiapine Fumarate (SEROquel) 50 mg HS PO Last administered on 09/27/18at 21: 28; Start 09/22/18 at 21:00; Stop 09/28/18 at 19:49; Status DC Enoxaparin Sodium (Lovenox 40mg Syringe) 40 mg Q24H SQ Last administered on 10/07 20:53; Start 09/25/18 at 21:00 Duloxetine HCl (Cymbalta) 60 mg HS PO Last administered on 10/07/18 20:49; Start 09/29/18 at 21:00 Quetiapine Fumarate (SEROquel) 25 mg HS PO Last administered on 09/29/18at 20: 59; Start 09/28/18 at 21:00; Stop 09/30/18 at 17:23; Status DC Aripiprazole (Abilify) 2.5 mg QHS PO Last administered on 10/07/18at 20:49; Start 09/30/18 at 21:00 Guaifenesin (Robitussin Dm) 10 ml PRN Q6HRS PRN PO COUGH Last administered on at 19:11; Start 10/02/18 at 15:00 Nitrofurantoin Macrocrystals (Macrobid) 100 mg QHS PO Last administered on at 20:49; Start 10/03/18 at 21:00 Active Scripts Active Reported Seroquel (Quetiapine Fumarate) 25 Mg Tablet 12.5 Mg PO DAILY16 Olanzapine 10 Mg Tablet 10 Mg PO PRN BID PRN Olanzapine Inj (Olanzapine) 10 Mg Vial 5 Mg IM PRN BID PRN Analgesic [place] (Methyl Salicylate/Menthol) 28 Gm Oint...g. 1 Frank TP PRN QID PRN Milk Of Magnesia (Magnesium Hydroxide) 2,400 Mg/10 Ml Oral.susp 2,400 Mg PO PRN QHS PRN Advanced Antacid Liquid (Mag Hydrox/Al Hydrox/Simeth) 355 Ml Oral.susp 15 Ml PO PRN AFTMEALHC PRN Culturelle (Lactobacillus Rhamnosus Gg) 1 Each Cap.sprink 1 Cap PO BID Humalog (Insulin Lispro) 100 Unit/1 Ml Cartridge 0-5 Unit SQ TIDWMEALS Gabapentin 100 Mg Capsule 100 Mg PO BID Cymbalta (Duloxetine Hcl) 60 Mg Capsule.dr 60 Mg PO DAILY Ciprofloxacin Hcl 500 Mg Tablet 500 Mg PO BID Venlafaxine Hcl Er (Venlafaxine Hcl) 150 Mg Tab.er.24 150 Mg PO DAILYWBKFT Quetiapine Fumarate 25 Mg Tablet 25 Mg PO DAILY Seroquel (Quetiapine Fumarate) 25 Mg Tablet 75 Mg PO QHS Namenda (Memantine Hcl) 10 Mg Tablet 10 Mg PO BID Lovastatin 40 Mg Tablet 80 Mg PO QHS Levothyroxine Sodium 100 Mcg Tablet 100 Mcg PO DAILYAC Keppra (Levetiracetam) 500 Mg Tablet 500 Mg PO BID Heparin 5,000 Unit/5 ml-Ns (Heparin Sod,Porcine/0.9 % NaCl) 5,000 Unit/5 Ml Syringe 5,000 Unit IM Q8HRS Vitamin D2 (Ergocalciferol (Vitamin D2)) 50,000 Unit Capsule 50,000 Unit PO WEEKLY Benazepril Hcl 20 Mg Tablet 20 Mg PO DAILY Aspirin 81 Mg Tab.chew 81 Mg PO DAILY Amlodipine Besylate 5 Mg Tablet 5 Mg PO DAILY Tylenol (Acetaminophen) 325 Mg Tablet 650 Mg PO PRN Q4HRS PRN I have reviewed the current psychotropics carefully including drug interactions. Risk benefit ratio favors no change other than as noted in my dictated progress note. Diagnosis: Problems: (1) Anxiety disorder (2) Mild cognitive disorder (3) Major depressive disorder, recurrent episode (4) Impulse control disorder ANTONIA BAILEY MD Oct 07, 2018 22:43
--- NOTE | 2018-10-08 00:36 | PN ---
DATE: 10/06/2018 PSYCHIATRIC PROGRESS NOTE This late entry 10/06/2018 covers elements, not covered in my initial note. SUBJECTIVE: I met with the patient in the evening. The patient slept 5 hours previous night. She is still withdrawn. Remains on Macrobid prophylactic for recurrent UTIs, has been joking a little bit more. REVIEW OF SYSTEMS: Ambulation impaired, in wheelchair. Complains of tiredness. No CV, , pulmonary, eye system symptoms on review. MENTAL STATUS EXAM: Oriented to herself and situation. Speech often responses monosyllabic, able to tell me the [place] her [id number] visited her. Abstraction fair, computation impaired, language function intact. Mood and affect still depressed, withdrawn, but better than before. LABORATORY DATA: Reviewed. IMPRESSION: Unchanged from initial note. PLAN: No change from initial note. MAN Han BAILEY MD DR: RAYMON/christen JOB#: [id number] / [id number]
[2018-10-08] MEDS: LEVOTHYROXINE 100 MCG TABLET PO SCH (05:27)
[2018-10-08 05:43] VITALS: BP 120/64
[2018-10-08] MEDS: INSULIN LISPRO 300 UNITS/3 ML INSULN.PEN. SQ SCH ×3 (08:15→17:23)
[2018-10-08] MEDS: LACTOBACILLUS RHAMNOSUS GG 1 CAPSULE. PO SCH ×2 (08:15→19:40)
[2018-10-08] MEDS: levETIRAcetam 500 MG TABLET PO SCH ×2 (08:15→19:40)
[2018-10-08] MEDS: ASPIRIN 81 MG TAB.CHEW PO SCH (08:15)
[2018-10-08] MEDS: MEMANTINE 10 MG TABLET. PO SCH ×2 (08:15→19:39)
[2018-10-08] MEDS: amLODIPine BESYLATE 5 MG TABLET PO SCH (08:15)
[2018-10-08] MEDS: GABAPENTIN 100 MG CAPSULE. PO SCH ×3 (08:15→19:39)
[2018-10-08] MEDS: LISINOPRIL 20 MG TABLET PO SCH (08:16)
[2018-10-08] MEDS: buPROPion XL 150 MG TAB.ER.24H PO SCH (08:16)
[2018-10-08] MEDS: ACETAMINOPHEN 325 MG TABLET PO PRN (12:16)
[2018-10-08 15:54] VITALS: BP 133/73
[2018-10-08] MEDS: ARIPiprazole 5 MG TABLET PO SCH (19:39)
[2018-10-08] MEDS: NITROFURANTOIN MONOHYD/M-CRYST 100 MG CAPSULE. PO SCH (19:39)
[2018-10-08] MEDS: ATORVASTATIN CALCIUM 20 MG TABLET PO SCH (19:40)
[2018-10-08] MEDS: DULoxetine HCL 60 MG CAPSULE.DR PO SCH (19:40)
[2018-10-08] MEDS: INSULIN GLARGINE 300 UNITS/3 ML INSULN.PEN. SQ SCH (19:41)
[2018-10-08] MEDS: ENOXAPARIN 40 MG/0.4 ML SYRINGE. SQ SCH (19:43)
--- NOTE | 2018-10-08 23:02 | PDOC ---
Exam Note: José Miguel Note: Please also refer to the separate dictated note~for this date of service dictated separately.~Patient seen individually. Discussed the patient with Nursing staff reviewed the chart.~Reviewed interim history and current functioning. Reviewed vital signs,~Labs/ Radiology~and current medications noted below. Continue current treatment with the changes noted in the dictated addendum note Assessment: Vital Signs: Vital Signs Date Time Temp Pulse Resp B/P (MAP) Pulse Ox O2 Delivery O2 Flow Rate FiO2 10/08/18 15:54 98.7 86 18 133/73 (93) 94 10/05/18 16:23 Room Air I&O Intake and Output 10/08/18 07:01 Intake Total 1160 ml Balance 1160 ml Intake Oral 1160 ml Labs: Laboratory Tests Test 10/08/18 07:28 10/08/18 12:11 10/08/18 17:05 10/08/18 19:01 Glucose (Fingerstick) 192 mg/dL (70-99) H 191 mg/dL (70-99) H 268 mg/dL (70-99) H 217 mg/dL (70-99) H Current Medications: Meds: Current Medications Acetaminophen (Tylenol) 650 mg PRN Q6HRS PRN PO PAIN / TEMP Last administered on 10/08/18at 12:16; Start 08/08/18 at 20:00 Multi-Ingredient Ointment (Analgesic [place]) 1 frank PRN QID PRN TP MUSCLE PAIN Last administered on 09/28/18at 23:29; Start 08/08/18 at 20:00 Al Hydroxide/Mg Hydroxide (Mylanta Plus Xs) 15 ml PRN AFTMEALHC PRN PO DYSPEPSIA; Start 08/08/18 at 20:00 Magnesium Hydroxide (Milk Of Magnesia) 2,400 mg PRN QHS PRN PO CONSTIPATION Last administered on 09/25/18at 20:15; Start 08/08/18 at 20:00 Memantine (Namenda) 10 mg BID PO Last administered on 10/08/18at 19:39; Start at 22:00 Quetiapine Fumarate (SEROquel) 25 mg DAILY PO Last administered on 09/05/18at 08 :51; Start 08/09/18 at 09:00; Stop 09/05/18 at 11:58; Status DC Quetiapine Fumarate (SEROquel) 75 mg HS PO Last administered on 09/21/18at 20: 38; Start 08/08/18 at 22:00; Stop 09/22/18 at 18:49; Status DC Venlafaxine HCl (Effexor) 50 mg TID PO Last administered on 08/10/18at 13:40; Start 08/09/18 at 09:00; Stop 08/10/18 at 17:54; Status DC Acetaminophen (Tylenol) 650 mg PRN Q4HRS PRN PO PAIN / TEMP; Start 08/08/18 at 21:30; Status Cancel Levothyroxine Sodium (Synthroid) 100 mcg DAILY06 PO Last administered on 05:27; Start 08/09/18 at 06:00 Amlodipine Besylate (Norvasc) 5 mg DAILY PO Last administered on 10/08/18 08:15 ; Start 08/09/18 at 09:00 Aspirin (Children'S Aspirin) 81 mg DAILY PO Last administered on 10/08/18 08:15 ; Start 08/09/18 at 09:00 Lisinopril (Prinivil) 20 mg DAILY PO Last administered on 10/08/18 08:16; Start 08/09/18 at 09:00 Vitamin D (Vitamin D3) 50,000 unit WEEKLY PO Last administered on 10/03/18 08: 28; Start 08/15/18 at 09:00 Heparin Sodium (Porcine) (Heparin Sq) 5,000 unit Q8HRS SQ Last administered on 08/27/18at 22:37; Start 08/08/18 at 22:00; Stop 08/27/18 at 23:00; Status DC Levetiracetam (Keppra) 500 mg BID PO Last administered on 10/08/18 19:40; Start 08/08/18 at 22:00 Atorvastatin Calcium (Lipitor) 20 mg QHS PO Last administered on 10/08/18 19:40 ; Start 08/09/18 at 21:00 Insulin Human Lispro (HumaLOG) 0-5 UNITS TIDWMEALS SQ Last administered on 09/05at 09:13; Start 08/09/18 at 08:00; Stop 09/05/18 at 14:16; Status DC Dextrose 12.5 gm PRN Q15MIN PRN IV SEE COMMENTS; Start 08/09/18 at 05:45; Stop 09/05/18 at 14:16; Status DC Duloxetine HCl (Cymbalta) 30 mg DAILY PO Last administered on 08/12/18at 08:06 ; Start 08/11/18 at 09:00; Stop 08/12/18 at 09:02; Status DC Duloxetine HCl (Cymbalta) 60 mg DAILY PO Last administered on 09/28/18at 08:28 ; Start 08/13/18 at 09:00; Stop 09/28/18 at 19:49; Status DC Cephalexin HCl (Keflex) 500 mg TID PO Last administered on 08/20/18at 19:28; Start 08/11/18 at 09:00; Stop 08/21/18 at 08:59; Status DC Lactobacillus Rhamnosus (Culturelle) 1 cap BID PO Last administered on at 19:40; Start 08/11/18 at 09:00 Levothyroxine Sodium (Synthroid) 100 mcg 1X ONCE PO Last administered on 08/15at 06:23; Start 08/15/18 at 06:30; Stop 08/15/18 at 06:31; Status DC Olanzapine (ZyPREXA ZYDIS) 10 mg PRN BID PRN PO AGITATION; Start 08/24/18 at 17:45; Stop 09/22/18 at 12:01; Status DC Olanzapine (ZyPREXA IM) 5 mg PRN BID PRN IM AGITATION Last administered on at 17:53; Start 08/24/18 at 17:45; Stop 09/22/18 at 12:01; Status DC Cefpodoxime Proxetil (Vantin) 200 mg BID PO Last administered on 08/27/18at 08: 28; Start 08/25/18 at 17:30; Stop 08/27/18 at 17:27; Status DC Gabapentin (Neurontin) 100 mg BID PO Last administered on 09/13/18at 09:05; Start 08/25/18 at 21:00; Stop 09/13/18 at 16:30; Status DC Quetiapine Fumarate (SEROquel) 12.5 mg DAILY16 PO Last administered on at 16:29; Start 08/27/18 at 16:00; Stop 09/16/18 at 16:52; Status DC Heparin Sodium (Porcine) (Heparin Sodium) 5,000 unit Q8HRS SQ Last administered on 09/25/18at 13:45; Start 08/28/18 at 06:00; Stop 09/25/18 at 18 :16; Status DC Ciprofloxacin (Cipro) 500 mg BID PO Last administered on 09/06/18at 08:09; Start 08/27/18 at 21:00; Stop 09/06/18 at 20:59; Status DC Insulin Human Lispro (HumaLOG) 0-9 UNITS TIDWMEALS SQ Last administered on 17:23; Start 09/05/18 at 17:00 Dextrose 12.5 gm PRN Q15MIN PRN IV SEE COMMENTS; Start 09/05/18 at 14:15 Gabapentin (Neurontin) 200 mg TID PO Last administered on 10/08/18 19:39; Start 09/13/18 at 21:00 Bupropion HCl (Wellbutrin Xl) 150 mg DAILY PO Last administered on 10/08/18 08: 16; Start 09/17/18 at 09:00 Insulin Glargine (Lantus) 15 units QHS SQ Last administered on 10/08/18 19:41; Start 09/19/18 at 21:00 Olanzapine (ZyPREXA ZYDIS) 2.5 mg PRN Q2HR PRN PO PSYCHOSIS Last administered on 09/30/18 13:17; Start 09/22/18 at 12:00 Quetiapine Fumarate (SEROquel) 50 mg HS PO Last administered on 09/27/18at 21: 28; Start 09/22/18 at 21:00; Stop 09/28/18 at 19:49; Status DC Enoxaparin Sodium (Lovenox 40mg Syringe) 40 mg Q24H SQ Last administered on 10/08 19:43; Start 09/25/18 at 21:00 Duloxetine HCl (Cymbalta) 60 mg HS PO Last administered on 10/08/18 19:40; Start 09/29/18 at 21:00 Quetiapine Fumarate (SEROquel) 25 mg HS PO Last administered on 09/29/18at 20: 59; Start 09/28/18 at 21:00; Stop 09/30/18 at 17:23; Status DC Aripiprazole (Abilify) 2.5 mg QHS PO Last administered on 10/08/18at 19:39; Start 09/30/18 at 21:00 Guaifenesin (Robitussin Dm) 10 ml PRN Q6HRS PRN PO COUGH Last administered on at 19:11; Start 10/02/18 at 15:00 Nitrofurantoin Macrocrystals (Macrobid) 100 mg QHS PO Last administered on at 19:39; Start 10/03/18 at 21:00 Active Scripts Active Reported Seroquel (Quetiapine Fumarate) 25 Mg Tablet 12.5 Mg PO DAILY16 Olanzapine 10 Mg Tablet 10 Mg PO PRN BID PRN Olanzapine Inj (Olanzapine) 10 Mg Vial 5 Mg IM PRN BID PRN Analgesic [place] (Methyl Salicylate/Menthol) 28 Gm Oint...g. 1 Frank TP PRN QID PRN Milk Of Magnesia (Magnesium Hydroxide) 2,400 Mg/10 Ml Oral.susp 2,400 Mg PO PRN QHS PRN Advanced Antacid Liquid (Mag Hydrox/Al Hydrox/Simeth) 355 Ml Oral.susp 15 Ml PO PRN AFTMEALHC PRN Culturelle (Lactobacillus Rhamnosus Gg) 1 Each Cap.sprink 1 Cap PO BID Humalog (Insulin Lispro) 100 Unit/1 Ml Cartridge 0-5 Unit SQ TIDWMEALS Gabapentin 100 Mg Capsule 100 Mg PO BID Cymbalta (Duloxetine Hcl) 60 Mg Capsule.dr 60 Mg PO DAILY Ciprofloxacin Hcl 500 Mg Tablet 500 Mg PO BID Venlafaxine Hcl Er (Venlafaxine Hcl) 150 Mg Tab.er.24 150 Mg PO DAILYWBKFT Quetiapine Fumarate 25 Mg Tablet 25 Mg PO DAILY Seroquel (Quetiapine Fumarate) 25 Mg Tablet 75 Mg PO QHS Nam[place] (Memantine Hcl) 10 Mg Tablet 10 Mg PO BID Lovastatin 40 Mg Tablet 80 Mg PO QHS Levothyroxine Sodium 100 Mcg Tablet 100 Mcg PO DAILYAC Keppra (Levetiracetam) 500 Mg Tablet 500 Mg PO BID Heparin 5,000 Unit/5 ml-Ns (Heparin Sod,Porcine/0.9 % NaCl) 5,000 Unit/5 Ml Syringe 5,000 Unit IM Q8HRS Vitamin D2 (Ergocalciferol (Vitamin D2)) 50,000 Unit Capsule 50,000 Unit PO WEEKLY Benazepril Hcl 20 Mg Tablet 20 Mg PO DAILY Aspirin 81 Mg Tab.chew 81 Mg PO DAILY Amlodipine Besylate 5 Mg Tablet 5 Mg PO DAILY Tylenol (Acetaminophen) 325 Mg Tablet 650 Mg PO PRN Q4HRS PRN I have reviewed the current psychotropics carefully including drug interactions. Risk benefit ratio favors no change other than as noted in my dictated progress note. Diagnosis: Problems: (1) Anxiety disorder (2) Mild cognitive disorder (3) Major depressive disorder, recurrent episode (4) Impulse control disorder ANTONIA BAILEY MD Oct 08, 2018 23:02
--- NOTE | 2018-10-09 01:59 | PN ---
DATE: 10/07/2018 This late entry for 10/07/2018 covers elements not covered in my initial note. SUBJECTIVE: I met with the patient in the evening. The patient slept 8-3/4 hours previous night. At night, she is somewhat labile, irritable with medications, but appropriate during the day on 10/07/2018, interactive when she is spoken to. She was interacting with one of the other patients, who is not very demented. The patient took a nap after lunch and then did better. By the time I met with her in the evening, she was quite withdrawn again, but verbally interactive, less tired. REVIEW OF SYSTEMS: Ambulation impaired, in wheelchair. No CV, , pulmonary, eye, ENT system symptoms on review. She said she had no visitors on 10/07/2018. MENTAL STATUS EXAM: Oriented to herself and situation. Speech moderate latency, often responses monosyllabic. Abstraction fair, computation impaired, language function intact, attention span short. Mood and affect somewhat withdrawn. LABORATORY DATA: Reviewed. IMPRESSION: Major depressive disorder, recurrent with psychotic features; anxiety disorder, unspecified. Rest unchanged. PLAN: Continue psychotropics from initial note. Wellbutrin-XL 150 mg a day, Cymbalta 60 mg a day, Abilify 2.5 mg a day to augment the Cymbalta and Wellbutrin. Maintain Keppra for seizures, Namenda 10 b.i.d., and Zyprexa p.r.n. ANTONIA ABILEY MD DR: RAYMON/christen JOB#: [id number] / [id number]
[2018-10-09 06:01] VITALS: BP 145/79
[2018-10-09] MEDS: LEVOTHYROXINE 100 MCG TABLET PO SCH (06:03)
[2018-10-09] MEDS: GABAPENTIN 100 MG CAPSULE. PO SCH ×3 (08:42→20:20)
[2018-10-09] MEDS: LISINOPRIL 20 MG TABLET PO SCH (08:42)
[2018-10-09] MEDS: LACTOBACILLUS RHAMNOSUS GG 1 CAPSULE. PO SCH ×2 (08:42→20:18)
[2018-10-09] MEDS: MEMANTINE 10 MG TABLET. PO SCH ×2 (08:42→20:18)
[2018-10-09] MEDS: levETIRAcetam 500 MG TABLET PO SCH ×2 (08:42→20:18)
[2018-10-09] MEDS: buPROPion XL 150 MG TAB.ER.24H PO SCH (08:42)
[2018-10-09] MEDS: ASPIRIN 81 MG TAB.CHEW PO SCH (08:42)
[2018-10-09] MEDS: amLODIPine BESYLATE 5 MG TABLET PO SCH (08:43)
[2018-10-09] MEDS: INSULIN LISPRO 300 UNITS/3 ML INSULN.PEN. SQ SCH ×3 (08:44→17:51)
[2018-10-09 16:30] VITALS: BP 94/68
--- NOTE | 2018-10-09 17:44 | PN ---
DATE: 10/08/2018 PSYCHIATRIC PROGRESS NOTE This late entry 10/08/2018 covers elements not covered in my initial note. SUBJECTIVE: I met with the patient in the evening. The patient slept 7-1/2 hours previous night. She remains somewhat flat with no emotion per nursing report. She is reasonably oriented, talks when I interacted with her, but otherwise often head down on the table in front of which is what was happening as I first visited with her evening of 10/08/2018. REVIEW OF SYSTEMS: Ambulation impaired, in wheelchair. No CV, , pulmonary, eye, ENT system symptoms on review, does complain of tiredness. MENTAL STATUS EXAM: Oriented to herself and situation. Speech has some latency, low in rate and rhythm, often responses monosyllabic, coherent, abstraction fair, computation impaired, language function intact, attention span short. Mood and affect still depressed, withdrawn, but better than before. No suicidal ideation. LABORATORY DATA: Reviewed. IMPRESSION: Major depressive disorder, recurrent with psychotic features, in partial remission; anxiety disorder, unspecified; cognitive disorder, unspecified. Rest unchanged. PLAN: Continue psychotropics from initial note. The risk/benefit ratio favors no increase at this time. Reviewed information from social service staff who are actively looking for placement. ANTONIA BAILEY MD DR: RAYMON/christen JOB#: [id number] / [id number]
[2018-10-09] MEDS: DULoxetine HCL 60 MG CAPSULE.DR PO SCH (20:18)
[2018-10-09] MEDS: ATORVASTATIN CALCIUM 20 MG TABLET PO SCH (20:18)
[2018-10-09] MEDS: ARIPiprazole 5 MG TABLET PO SCH (20:18)
[2018-10-09] MEDS: ENOXAPARIN 40 MG/0.4 ML SYRINGE. SQ SCH (20:19)
[2018-10-09] MEDS: NITROFURANTOIN MONOHYD/M-CRYST 100 MG CAPSULE. PO SCH (20:20)
[2018-10-09] MEDS: MAGNESIUM HYDROXIDE 2,400 MG/30 ML ORAL.SUSP. PO PRN (20:21)
[2018-10-09] MEDS: INSULIN GLARGINE 300 UNITS/3 ML INSULN.PEN. SQ SCH (20:29)
--- NOTE | 2018-10-09 22:52 | PDOC ---
Exam Note: José Miguel Note: Please also refer to the separate dictated note~for this date of service dictated separately.~Patient seen individually. Discussed the patient with Nursing staff reviewed the chart.~Reviewed interim history and current functioning. Reviewed vital signs,~Labs/ Radiology~and current medications noted below. Continue current treatment with the changes noted in the dictated addendum note Assessment: Vital Signs: Vital Signs Date Time Temp Pulse Resp B/P (MAP) Pulse Ox O2 Delivery O2 Flow Rate FiO2 10/09/18 16:30 97.6 78 20 94/68 (77) 96 10/05/18 16:23 Room Air I&O Intake and Output 10/09/18 07:01 Intake Total 1180 ml Balance 1180 ml Intake Oral 1180 ml Labs: Laboratory Tests Test 10/09/18 07:34 10/09/18 11:36 10/09/18 16:53 10/09/18 19:11 Glucose (Fingerstick) 151 mg/dL (70-99) H 133 mg/dL (70-99) H 198 mg/dL (70-99) H 251 mg/dL (70-99) H Current Medications: Meds: Current Medications Acetaminophen (Tylenol) 650 mg PRN Q6HRS PRN PO PAIN / TEMP Last administered on 10/08/18at 12:16; Start 08/08/18 at 20:00 Multi-Ingredient Ointment (Analgesic [place]) 1 frank PRN QID PRN TP MUSCLE PAIN Last administered on 09/28/18at 23:29; Start 08/08/18 at 20:00 Al Hydroxide/Mg Hydroxide (Mylanta Plus Xs) 15 ml PRN AFTMEALHC PRN PO DYSPEPSIA; Start 08/08/18 at 20:00 Magnesium Hydroxide (Milk Of Magnesia) 2,400 mg PRN QHS PRN PO CONSTIPATION Last administered on 10/09/18 20:21; Start 08/08/18 at 20:00 Memantine (Namenda) 10 mg BID PO Last administered on 10/09/18 20:18; Start at 22:00 Quetiapine Fumarate (SEROquel) 25 mg DAILY PO Last administered on 09/05/18at 08 :51; Start 08/09/18 at 09:00; Stop 09/05/18 at 11:58; Status DC Quetiapine Fumarate (SEROquel) 75 mg HS PO Last administered on 09/21/18at 20: 38; Start 08/08/18 at 22:00; Stop 09/22/18 at 18:49; Status DC Venlafaxine HCl (Effexor) 50 mg TID PO Last administered on 08/10/18at 13:40; Start 08/09/18 at 09:00; Stop 08/10/18 at 17:54; Status DC Acetaminophen (Tylenol) 650 mg PRN Q4HRS PRN PO PAIN / TEMP; Start 08/08/18 at 21:30; Status Cancel Levothyroxine Sodium (Synthroid) 100 mcg DAILY06 PO Last administered on 06:03; Start 08/09/18 at 06:00 Amlodipine Besylate (Norvasc) 5 mg DAILY PO Last administered on 10/09/18 08:43 ; Start 08/09/18 at 09:00 Aspirin (Children'S Aspirin) 81 mg DAILY PO Last administered on 10/09/18 08:42 ; Start 08/09/18 at 09:00 Lisinopril (Prinivil) 20 mg DAILY PO Last administered on 10/09/18 08:42; Start 08/09/18 at 09:00 Vitamin D (Vitamin D3) 50,000 unit WEEKLY PO Last administered on 10/03/18 08: 28; Start 08/15/18 at 09:00 Heparin Sodium (Porcine) (Heparin Sq) 5,000 unit Q8HRS SQ Last administered on 08/27/18at 22:37; Start 08/08/18 at 22:00; Stop 08/27/18 at 23:00; Status DC Levetiracetam (Keppra) 500 mg BID PO Last administered on 10/09/18 20:18; Start 08/08/18 at 22:00 Atorvastatin Calcium (Lipitor) 20 mg QHS PO Last administered on 10/09/18 20:18 ; Start 08/09/18 at 21:00 Insulin Human Lispro (HumaLOG) 0-5 UNITS TIDWMEALS SQ Last administered on 09/05at 09:13; Start 08/09/18 at 08:00; Stop 09/05/18 at 14:16; Status DC Dextrose 12.5 gm PRN Q15MIN PRN IV SEE COMMENTS; Start 08/09/18 at 05:45; Stop 09/05/18 at 14:16; Status DC Duloxetine HCl (Cymbalta) 30 mg DAILY PO Last administered on 08/12/18at 08:06 ; Start 08/11/18 at 09:00; Stop 08/12/18 at 09:02; Status DC Duloxetine HCl (Cymbalta) 60 mg DAILY PO Last administered on 09/28/18at 08:28 ; Start 08/13/18 at 09:00; Stop 09/28/18 at 19:49; Status DC Cephalexin HCl (Keflex) 500 mg TID PO Last administered on 08/20/18at 19:28; Start 08/11/18 at 09:00; Stop 08/21/18 at 08:59; Status DC Lactobacillus Rhamnosus (Culturelle) 1 cap BID PO Last administered on at 20:18; Start 08/11/18 at 09:00 Levothyroxine Sodium (Synthroid) 100 mcg 1X ONCE PO Last administered on 08/15at 06:23; Start 08/15/18 at 06:30; Stop 08/15/18 at 06:31; Status DC Olanzapine (ZyPREXA ZYDIS) 10 mg PRN BID PRN PO AGITATION; Start 08/24/18 at 17:45; Stop 09/22/18 at 12:01; Status DC Olanzapine (ZyPREXA IM) 5 mg PRN BID PRN IM AGITATION Last administered on at 17:53; Start 08/24/18 at 17:45; Stop 09/22/18 at 12:01; Status DC Cefpodoxime Proxetil (Vantin) 200 mg BID PO Last administered on 08/27/18at 08: 28; Start 08/25/18 at 17:30; Stop 08/27/18 at 17:27; Status DC Gabapentin (Neurontin) 100 mg BID PO Last administered on 09/13/18at 09:05; Start 08/25/18 at 21:00; Stop 09/13/18 at 16:30; Status DC Quetiapine Fumarate (SEROquel) 12.5 mg DAILY16 PO Last administered on at 16:29; Start 08/27/18 at 16:00; Stop 09/16/18 at 16:52; Status DC Heparin Sodium (Porcine) (Heparin Sodium) 5,000 unit Q8HRS SQ Last administered on 09/25/18at 13:45; Start 08/28/18 at 06:00; Stop 09/25/18 at 18 :16; Status DC Ciprofloxacin (Cipro) 500 mg BID PO Last administered on 09/06/18at 08:09; Start 08/27/18 at 21:00; Stop 09/06/18 at 20:59; Status DC Insulin Human Lispro (HumaLOG) 0-9 UNITS TIDWMEALS SQ Last administered on 17:51; Start 09/05/18 at 17:00 Dextrose 12.5 gm PRN Q15MIN PRN IV SEE COMMENTS; Start 09/05/18 at 14:15 Gabapentin (Neurontin) 200 mg TID PO Last administered on 10/09/18 20:20; Start 09/13/18 at 21:00 Bupropion HCl (Wellbutrin Xl) 150 mg DAILY PO Last administered on 10/09/18 08: 42; Start 09/17/18 at 09:00 Insulin Glargine (Lantus) 15 units QHS SQ Last administered on 10/09/18 20:29; Start 09/19/18 at 21:00 Olanzapine (ZyPREXA ZYDIS) 2.5 mg PRN Q2HR PRN PO PSYCHOSIS Last administered on 10/09/18 03:22; Start 09/22/18 at 12:00 Quetiapine Fumarate (SEROquel) 50 mg HS PO Last administered on 09/27/18at 21: 28; Start 09/22/18 at 21:00; Stop 09/28/18 at 19:49; Status DC Enoxaparin Sodium (Lovenox 40mg Syringe) 40 mg Q24H SQ Last administered on 10/09 20:19; Start 09/25/18 at 21:00 Duloxetine HCl (Cymbalta) 60 mg HS PO Last administered on 10/09/18 20:18; Start 09/29/18 at 21:00 Quetiapine Fumarate (SEROquel) 25 mg HS PO Last administered on 09/29/18at 20: 59; Start 09/28/18 at 21:00; Stop 09/30/18 at 17:23; Status DC Aripiprazole (Abilify) 2.5 mg QHS PO Last administered on 10/09/18at 20:18; Start 09/30/18 at 21:00 Guaifenesin (Robitussin Dm) 10 ml PRN Q6HRS PRN PO COUGH Last administered on at 19:11; Start 10/02/18 at 15:00 Nitrofurantoin Macrocrystals (Macrobid) 100 mg QHS PO Last administered on at 20:20; Start 10/03/18 at 21:00 Active Scripts Active Reported Seroquel (Quetiapine Fumarate) 25 Mg Tablet 12.5 Mg PO DAILY16 Olanzapine 10 Mg Tablet 10 Mg PO PRN BID PRN Olanzapine Inj (Olanzapine) 10 Mg Vial 5 Mg IM PRN BID PRN Analgesic [place] (Methyl Salicylate/Menthol) 28 Gm Oint...g. 1 Frank TP PRN QID PRN Milk Of Magnesia (Magnesium Hydroxide) 2,400 Mg/10 Ml Oral.susp 2,400 Mg PO PRN QHS PRN Advanced Antacid Liquid (Mag Hydrox/Al Hydrox/Simeth) 355 Ml Oral.susp 15 Ml PO PRN AFTMEALHC PRN Culturelle (Lactobacillus Rhamnosus Gg) 1 Each Cap.sprink 1 Cap PO BID Humalog (Insulin Lispro) 100 Unit/1 Ml Cartridge 0-5 Unit SQ TIDWMEALS Gabapentin 100 Mg Capsule 100 Mg PO BID Cymbalta (Duloxetine Hcl) 60 Mg Capsule.dr 60 Mg PO DAILY Ciprofloxacin Hcl 500 Mg Tablet 500 Mg PO BID Venlafaxine Hcl Er (Venlafaxine Hcl) 150 Mg Tab.er.24 150 Mg PO DAILYWBKFT Quetiapine Fumarate 25 Mg Tablet 25 Mg PO DAILY Seroquel (Quetiapine Fumarate) 25 Mg Tablet 75 Mg PO QHS Namenda (Memantine Hcl) 10 Mg Tablet 10 Mg PO BID Lovastatin 40 Mg Tablet 80 Mg PO QHS Levothyroxine Sodium 100 Mcg Tablet 100 Mcg PO DAILYAC Keppra (Levetiracetam) 500 Mg Tablet 500 Mg PO BID Heparin 5,000 Unit/5 ml-Ns (Heparin Sod,Porcine/0.9 % NaCl) 5,000 Unit/5 Ml Syringe 5,000 Unit IM Q8HRS Vitamin D2 (Ergocalciferol (Vitamin D2)) 50,000 Unit Capsule 50,000 Unit PO WEEKLY Benazepril Hcl 20 Mg Tablet 20 Mg PO DAILY Aspirin 81 Mg Tab.chew 81 Mg PO DAILY Amlodipine Besylate 5 Mg Tablet 5 Mg PO DAILY Tylenol (Acetaminophen) 325 Mg Tablet 650 Mg PO PRN Q4HRS PRN I have reviewed the current psychotropics carefully including drug interactions. Risk benefit ratio favors no change other than as noted in my dictated progress note. Diagnosis: Problems: (1) Anxiety disorder (2) Mild cognitive disorder (3) Major depressive disorder, recurrent episode (4) Impulse control disorder ANTONIA BAILEY MD Oct 09, 2018 22:52
[2018-10-10 06:00] VITALS: BP 130/74
[2018-10-10] MEDS: LEVOTHYROXINE 100 MCG TABLET PO SCH (06:22)
[2018-10-10 06:55] LABS: BASO % 1 % (0-3); EOS # 0.2 x10^3/uL (0.0-0.7); EOS % 3 % (0-3); HEMATOCRIT 35.1 % (36.0-47.0); LYMPH # 1.9 x10^3/uL (1.0-4.8); LYMPH % 35 % (24-48); MEAN CORPUSCULAR HEMOGLOBIN 32 pg (25-35); MEAN CORPUSCULAR HGB CONC 34 g/dL (31-37); MEAN CORPUSCULAR VOLUME 94 fL (79-100); MONO # 0.4 x10^3/uL (0.0-1.1); MONO % 7 % (0-9); NEUT % 55 % (31-73); PLATELET COUNT 222 x10^3/uL (140-400); RED BLOOD COUNT 3.75 x10^6/uL (3.50-5.40); RED CELL DISTRIBUTION WIDTH 14.9 % (11.5-14.5); WHITE BLOOD COUNT 5.5 x10^3/uL (4.0-11.0)
[2018-10-10 07:10] LABS: ALBUMIN 3.1 g/dL (3.4-5.0); ALBUMIN/GLOBULIN RATIO 0.7 (1.0-1.7); CALCIUM 9.1 mg/dL (8.5-10.1); CREATININE 0.7 mg/dL (0.6-1.0); GFR 81.6; POTASSIUM 3.8 mmol/L (3.5-5.1); TOTAL BILIRUBIN 0.3 mg/dL (0.2-1.0); TOTAL PROTEIN 7.3 g/dL (6.4-8.2)
[2018-10-10] MEDS: INSULIN LISPRO 300 UNITS/3 ML INSULN.PEN. SQ SCH ×3 (08:44→17:24)
[2018-10-10] MEDS: ASPIRIN 81 MG TAB.CHEW PO SCH (09:21)
[2018-10-10] MEDS: LACTOBACILLUS RHAMNOSUS GG 1 CAPSULE. PO SCH ×2 (09:21→19:29)
[2018-10-10] MEDS: MEMANTINE 10 MG TABLET. PO SCH ×2 (09:22→19:30)
[2018-10-10] MEDS: levETIRAcetam 500 MG TABLET PO SCH ×2 (09:22→19:29)
[2018-10-10] MEDS: amLODIPine BESYLATE 5 MG TABLET PO SCH (09:24)
[2018-10-10] MEDS: GABAPENTIN 100 MG CAPSULE. PO SCH ×3 (09:24→19:29)
[2018-10-10] MEDS: LISINOPRIL 20 MG TABLET PO SCH (09:24)
[2018-10-10] MEDS: buPROPion XL 150 MG TAB.ER.24H PO SCH (09:25)
[2018-10-10] MEDS: CHOLECALCIFEROL (VITAMIN D3) 50,000 UNIT CAPSULE PO SCH (09:26)
[2018-10-10] MEDS: ACETAMINOPHEN 325 MG TABLET PO PRN (09:36)
[2018-10-10 16:04] VITALS: BP 96/65
[2018-10-10] MEDS: ENOXAPARIN 40 MG/0.4 ML SYRINGE. SQ SCH (19:28)
[2018-10-10] MEDS: DULoxetine HCL 60 MG CAPSULE.DR PO SCH (19:29)
[2018-10-10] MEDS: NITROFURANTOIN MONOHYD/M-CRYST 100 MG CAPSULE. PO SCH (19:29)
[2018-10-10] MEDS: ATORVASTATIN CALCIUM 20 MG TABLET PO SCH (19:29)
[2018-10-10] MEDS: ARIPiprazole 5 MG TABLET PO SCH (19:30)
[2018-10-10] MEDS: INSULIN GLARGINE 300 UNITS/3 ML INSULN.PEN. SQ SCH (19:31)
--- NOTE | 2018-10-10 21:39 | PN ---
DATE: 10/09/2018 This late entry for 10/09/2018 covers elements not covered in my initial note. SUBJECTIVE: I met with the patient in the evening, staffed at a treatment team meeting with the entire team earlier in the day. The patient is being screened for level 2 placement and social service staff addressed this. She slept 7-1/2 hours. Appetite 60%. She seems withdrawn, has a flat affect. Minimizes being depressed when directly questioned. REVIEW OF SYSTEMS: Ambulation impaired, in wheelchair. No CV, , pulmonary, eye, ENT system symptoms on review. MENTAL STATUS EXAM: Oriented to herself and situation. Speech has some latency, coherent. Abstraction fair, computation impaired, language function intact, attention span short. Mood and affect still depressed, but better than before. LABORATORY DATA: Reviewed. IMPRESSION: Major depressive disorder, recurrent with psychotic features. Rest unchanged. PLAN: No change from initial note. ANTONIA BAILEY MD DR: RAYMON/christen JOB#: [id number] / [id number]
--- NOTE | 2018-10-10 23:00 | PDOC ---
Exam Note: José Miguel Note: Please also refer to the separate dictated note~for this date of service dictated separately.~Patient seen individually. Discussed the patient with Nursing staff reviewed the chart.~Reviewed interim history and current functioning. Reviewed vital signs,~Labs/ Radiology~and current medications noted below. Continue current treatment with the changes noted in the dictated addendum note Assessment: Vital Signs: Vital Signs Date Time Temp Pulse Resp B/P (MAP) Pulse Ox O2 Delivery O2 Flow Rate FiO2 10/10/18 16:04 97.2 80 16 96/65 (75) 96 Room Air I&O Intake and Output 10/10/18 07:01 Intake Total 740 ml Balance 740 ml Intake Oral 740 ml Labs: Laboratory Tests Test 10/10/18 06:38 10/10/18 07:54 10/10/18 12:00 10/10/18 16:46 White Blood Count 5.5 x10^3/uL (4.0-11.0) Red Blood Count 3.75 x10^6/uL (3.50-5.40) Hemoglobin 12.0 g/dL (12.0-15.5) Hematocrit 35.1 % (36.0-47.0) L Mean Corpuscular Volume 94 fL (79-100) Mean Corpuscular Hemoglobin 32 pg (25-35) Mean Corpuscular Hemoglobin Concent 34 g/dL (31-37) Red Cell Distribution Width 14.9 % (11.5-14.5) H Platelet Count 222 x10^3/uL (140-400) Neutrophils (%) (Auto) 55 % (31-73) Lymphocytes (%) (Auto) 35 % (24-48) Monocytes (%) (Auto) 7 % (0-9) Eosinophils (%) (Auto) 3 % (0-3) Basophils (%) (Auto) 1 % (0-3) Neutrophils # (Auto) 3.0 x10^3uL (1.8-7.7) Lymphocytes # (Auto) 1.9 x10^3/uL (1.0-4.8) Monocytes # (Auto) 0.4 x10^3/uL (0.0-1.1) Eosinophils # (Auto) 0.2 x10^3/uL (0.0-0.7) Basophils # (Auto) 0.0 x10^3/uL (0.0-0.2) Sodium Level 140 mmol/L (136-145) Potassium Level 3.8 mmol/L (3.5-5.1) Chloride Level 102 mmol/L (98-107) Carbon Dioxide Level 33 mmol/L (21-32) H Anion Gap 5 (6-14) L Blood Urea Nitrogen 17 mg/dL (7-20) Creatinine 0.7 mg/dL (0.6-1.0) Estimated GFR (Cockcroft-Gault) 81.6 BUN/Creatinine Ratio 24 (6-20) H Glucose Level 130 mg/dL (70-99) H Calcium Level 9.1 mg/dL (8.5-10.1) Total Bilirubin 0.3 mg/dL (0.2-1.0) Aspartate Amino Transferase (AST) 13 U/L (15-37) L Alanine Aminotransferase (ALT) 15 U/L (14-59) Alkaline Phosphatase 94 U/L (46-116) Total Protein 7.3 g/dL (6.4-8.2) Albumin 3.1 g/dL (3.4-5.0) L Albumin/Globulin Ratio 0.7 (1.0-1.7) L Glucose (Fingerstick) 131 mg/dL (70-99) H 125 mg/dL (70-99) H 220 mg/dL (70-99) H Test 10/10/18 19:14 Glucose (Fingerstick) 214 mg/dL (70-99) H Current Medications: Meds: Current Medications Acetaminophen (Tylenol) 650 mg PRN Q6HRS PRN PO PAIN / TEMP Last administered on 10/10/18at 09:36; Start 08/08/18 at 20:00 Multi-Ingredient Ointment (Analgesic [place]) 1 frank PRN QID PRN TP MUSCLE PAIN Last administered on 09/28/18at 23:29; Start 08/08/18 at 20:00 Al Hydroxide/Mg Hydroxide (Mylanta Plus Xs) 15 ml PRN AFTMEALHC PRN PO DYSPEPSIA; Start 08/08/18 at 20:00 Magnesium Hydroxide (Milk Of Magnesia) 2,400 mg PRN QHS PRN PO CONSTIPATION Last administered on 10/09/18at 20:21; Start 08/08/18 at 20:00 Memantine (Namenda) 10 mg BID PO Last administered on 10/10/18 19:30; Start 08/08/18 at 22:00 Quetiapine Fumarate (SEROquel) 25 mg DAILY PO Last administered on 09/05/18at 08 :51; Start 08/09/18 at 09:00; Stop 09/05/18 at 11:58; Status DC Quetiapine Fumarate (SEROquel) 75 mg HS PO Last administered on 09/21/18at 20: 38; Start 08/08/18 at 22:00; Stop 09/22/18 at 18:49; Status DC Venlafaxine HCl (Effexor) 50 mg TID PO Last administered on 08/10/18at 13:40; Start 08/09/18 at 09:00; Stop 08/10/18 at 17:54; Status DC Acetaminophen (Tylenol) 650 mg PRN Q4HRS PRN PO PAIN / TEMP; Start 08/08/18 at 21:30; Status Cancel Levothyroxine Sodium (Synthroid) 100 mcg DAILY06 PO Last administered on 06:22; Start 08/09/18 at 06:00 Amlodipine Besylate (Norvasc) 5 mg DAILY PO Last administered on 10/10/18 09: 24; Start 08/09/18 at 09:00 Aspirin (Children'S Aspirin) 81 mg DAILY PO Last administered on 10/10/18 09: 21; Start 08/09/18 at 09:00 Lisinopril (Prinivil) 20 mg DAILY PO Last administered on 10/10/18 09:24; Start 08/09/18 at 09:00 Vitamin D (Vitamin D3) 50,000 unit WEEKLY PO Last administered on 10/10/18 09: 26; Start 08/15/18 at 09:00 Heparin Sodium (Porcine) (Heparin Sq) 5,000 unit Q8HRS SQ Last administered on 08/27/18at 22:37; Start 08/08/18 at 22:00; Stop 08/27/18 at 23:00; Status DC Levetiracetam (Keppra) 500 mg BID PO Last administered on 10/10/18 19:29; Start 08/08/18 at 22:00 Atorvastatin Calcium (Lipitor) 20 mg QHS PO Last administered on 10/10/18at 19: 29; Start 08/09/18 at 21:00 Insulin Human Lispro (HumaLOG) 0-5 UNITS TIDWMEALS SQ Last administered on 09/05at 09:13; Start 08/09/18 at 08:00; Stop 09/05/18 at 14:16; Status DC Dextrose 12.5 gm PRN Q15MIN PRN IV SEE COMMENTS; Start 08/09/18 at 05:45; Stop 09/05/18 at 14:16; Status DC Duloxetine HCl (Cymbalta) 30 mg DAILY PO Last administered on 08/12/18at 08:06 ; Start 08/11/18 at 09:00; Stop 08/12/18 at 09:02; Status DC Duloxetine HCl (Cymbalta) 60 mg DAILY PO Last administered on 09/28/18at 08:28 ; Start 08/13/18 at 09:00; Stop 09/28/18 at 19:49; Status DC Cephalexin HCl (Keflex) 500 mg TID PO Last administered on 08/20/18at 19:28; Start 08/11/18 at 09:00; Stop 08/21/18 at 08:59; Status DC Lactobacillus Rhamnosus (Culturelle) 1 cap BID PO Last administered on at 19:29; Start 08/11/18 at 09:00 Levothyroxine Sodium (Synthroid) 100 mcg 1X ONCE PO Last administered on 08/15at 06:23; Start 08/15/18 at 06:30; Stop 08/15/18 at 06:31; Status DC Olanzapine (ZyPREXA ZYDIS) 10 mg PRN BID PRN PO AGITATION; Start 08/24/18 at 17:45; Stop 09/22/18 at 12:01; Status DC Olanzapine (ZyPREXA IM) 5 mg PRN BID PRN IM AGITATION Last administered on at 17:53; Start 08/24/18 at 17:45; Stop 09/22/18 at 12:01; Status DC Cefpodoxime Proxetil (Vantin) 200 mg BID PO Last administered on 08/27/18at 08: 28; Start 08/25/18 at 17:30; Stop 08/27/18 at 17:27; Status DC Gabapentin (Neurontin) 100 mg BID PO Last administered on 09/13/18at 09:05; Start 08/25/18 at 21:00; Stop 09/13/18 at 16:30; Status DC Quetiapine Fumarate (SEROquel) 12.5 mg DAILY16 PO Last administered on at 16:29; Start 08/27/18 at 16:00; Stop 09/16/18 at 16:52; Status DC Heparin Sodium (Porcine) (Heparin Sodium) 5,000 unit Q8HRS SQ Last administered on 09/25/18at 13:45; Start 08/28/18 at 06:00; Stop 09/25/18 at 18 :16; Status DC Ciprofloxacin (Cipro) 500 mg BID PO Last administered on 09/06/18at 08:09; Start 08/27/18 at 21:00; Stop 09/06/18 at 20:59; Status DC Insulin Human Lispro (HumaLOG) 0-9 UNITS TIDWMEALS SQ Last administered on 10/10at 17:24; Start 09/05/18 at 17:00 Dextrose 12.5 gm PRN Q15MIN PRN IV SEE COMMENTS; Start 09/05/18 at 14:15 Gabapentin (Neurontin) 200 mg TID PO Last administered on 10/10/18at 19:29; Start 09/13/18 at 21:00 Bupropion HCl (Wellbutrin Xl) 150 mg DAILY PO Last administered on 10/10/18 09 :25; Start 09/17/18 at 09:00 Insulin Glargine (Lantus) 15 units QHS SQ Last administered on 10/10/18 19:31 ; Start 09/19/18 at 21:00 Olanzapine (ZyPREXA ZYDIS) 2.5 mg PRN Q2HR PRN PO PSYCHOSIS Last administered on 10/09/18 03:22; Start 09/22/18 at 12:00 Quetiapine Fumarate (SEROquel) 50 mg HS PO Last administered on 09/27/18at 21: 28; Start 09/22/18 at 21:00; Stop 09/28/18 at 19:49; Status DC Enoxaparin Sodium (Lovenox 40mg Syringe) 40 mg Q24H SQ Last administered on 19:28; Start 09/25/18 at 21:00 Duloxetine HCl (Cymbalta) 60 mg HS PO Last administered on 10/10/18 19:29; Start 09/29/18 at 21:00 Quetiapine Fumarate (SEROquel) 25 mg HS PO Last administered on 09/29/18at 20: 59; Start 09/28/18 at 21:00; Stop 09/30/18 at 17:23; Status DC Aripiprazole (Abilify) 2.5 mg QHS PO Last administered on 10/10/18 19:30; Start 09/30/18 at 21:00 Guaifenesin (Robitussin Dm) 10 ml PRN Q6HRS PRN PO COUGH Last administered on 19:11; Start 10/02/18 at 15:00 Nitrofurantoin Macrocrystals (Macrobid) 100 mg QHS PO Last administered on 10/10 19:29; Start 10/03/18 at 21:00 Active Scripts Active Reported Seroquel (Quetiapine Fumarate) 25 Mg Tablet 12.5 Mg PO DAILY16 Olanzapine 10 Mg Tablet 10 Mg PO PRN BID PRN Olanzapine Inj (Olanzapine) 10 Mg Vial 5 Mg IM PRN BID PRN Analgesic [place] (Methyl Salicylate/Menthol) 28 Gm Oint...g. 1 Frank TP PRN QID PRN Milk Of Magnesia (Magnesium Hydroxide) 2,400 Mg/10 Ml Oral.susp 2,400 Mg PO PRN QHS PRN Advanced Antacid Liquid (Mag Hydrox/Al Hydrox/Simeth) 355 Ml Oral.susp 15 Ml PO PRN AFTMEALHC PRN Culturelle (Lactobacillus Rhamnosus Gg) 1 Each Cap.sprink 1 Cap PO BID Humalog (Insulin Lispro) 100 Unit/1 Ml Cartridge 0-5 Unit SQ TIDWMEALS Gabapentin 100 Mg Capsule 100 Mg PO BID Cymbalta (Duloxetine Hcl) 60 Mg Capsule.dr 60 Mg PO DAILY Ciprofloxacin Hcl 500 Mg Tablet 500 Mg PO BID Venlafaxine Hcl Er (Venlafaxine Hcl) 150 Mg Tab.er.24 150 Mg PO DAILYWBKFT Quetiapine Fumarate 25 Mg Tablet 25 Mg PO DAILY Seroquel (Quetiapine Fumarate) 25 Mg Tablet 75 Mg PO QHS Namenda (Memantine Hcl) 10 Mg Tablet 10 Mg PO BID Lovastatin 40 Mg Tablet 80 Mg PO QHS Levothyroxine Sodium 100 Mcg Tablet 100 Mcg PO DAILYAC Keppra (Levetiracetam) 500 Mg Tablet 500 Mg PO BID Heparin 5,000 Unit/5 ml-Ns (Heparin Sod,Porcine/0.9 % NaCl) 5,000 Unit/5 Ml Syringe 5,000 Unit IM Q8HRS Vitamin D2 (Ergocalciferol (Vitamin D2)) 50,000 Unit Capsule 50,000 Unit PO WEEKLY Benazepril Hcl 20 Mg Tablet 20 Mg PO DAILY Aspirin 81 Mg Tab.chew 81 Mg PO DAILY Amlodipine Besylate 5 Mg Tablet 5 Mg PO DAILY Tylenol (Acetaminophen) 325 Mg Tablet 650 Mg PO PRN Q4HRS PRN I have reviewed the current psychotropics carefully including drug interactions. Risk benefit ratio favors no change other than as noted in my dictated progress note. Diagnosis: Problems: (1) Anxiety disorder (2) Mild cognitive disorder (3) Major depressive disorder, recurrent episode (4) Impulse control disorder ANTONIA BAILEY MD Oct 10, 2018 23:00
--- NOTE | 2018-10-10 23:09 | PN ---
DATE: 10/10/2018 This note covers elements not covered in my initial note. SUBJECTIVE: I met with the patient in the afternoon. The patient slept 7-1/4 hours previous night. The patient remains somewhat withdrawn, but less so than before and was quite animated, verbal with me as I met with her. REVIEW OF SYSTEMS: Ambulation impaired, in wheelchair. No CV, , pulmonary, eye system symptoms on review. MENTAL STATUS EXAM: Oriented to herself and situation. Speech has some latency, often responses monosyllabic. Abstraction fair, computation impaired, language function intact. Mood and affect still depressed, withdrawn, but better than before. No clear psychotic symptoms, suicidal or homicidal ideation. LABORATORY DATA: Reviewed. IMPRESSION: Unchanged from initial note. PLAN: No change from initial note. Awaiting placement per social service staff. MAN Han BAILEY MD DR: RAYMON/christen JOB#: [id number] / [id number]
[2018-10-10] MEDS: MAGNESIUM HYDROXIDE 2,400 MG/30 ML ORAL.SUSP. PO PRN (23:24)
[2018-10-11 05:45] VITALS: BP 117/69
[2018-10-11] MEDS: LEVOTHYROXINE 100 MCG TABLET PO SCH (06:27)
[2018-10-11] MEDS: GABAPENTIN 100 MG CAPSULE. PO SCH ×3 (08:23→20:16)
[2018-10-11] MEDS: buPROPion XL 150 MG TAB.ER.24H PO SCH (08:23)
[2018-10-11] MEDS: amLODIPine BESYLATE 5 MG TABLET PO SCH (08:24)
[2018-10-11] MEDS: MEMANTINE 10 MG TABLET. PO SCH ×2 (08:24→20:17)
[2018-10-11] MEDS: LISINOPRIL 20 MG TABLET PO SCH (08:24)
[2018-10-11] MEDS: LACTOBACILLUS RHAMNOSUS GG 1 CAPSULE. PO SCH ×2 (08:24→20:16)
[2018-10-11] MEDS: ASPIRIN 81 MG TAB.CHEW PO SCH (08:24)
[2018-10-11] MEDS: levETIRAcetam 500 MG TABLET PO SCH ×2 (08:25→20:17)
[2018-10-11] MEDS: INSULIN LISPRO 300 UNITS/3 ML INSULN.PEN. SQ SCH ×3 (08:34→17:26)
[2018-10-11 15:09] VITALS: BP 153/78
[2018-10-11] MEDS: ATORVASTATIN CALCIUM 20 MG TABLET PO SCH (20:16)
[2018-10-11] MEDS: NITROFURANTOIN MONOHYD/M-CRYST 100 MG CAPSULE. PO SCH (20:16)
[2018-10-11] MEDS: ARIPiprazole 5 MG TABLET PO SCH (20:17)
[2018-10-11] MEDS: DULoxetine HCL 60 MG CAPSULE.DR PO SCH (20:17)
[2018-10-11] MEDS: ENOXAPARIN 40 MG/0.4 ML SYRINGE. SQ SCH (20:31)
[2018-10-11] MEDS: INSULIN GLARGINE 300 UNITS/3 ML INSULN.PEN. SQ SCH (20:34)
--- NOTE | 2018-10-11 21:42 | PN ---
DATE: 10/11/2018 SUBJECTIVE: The patient was seen today, met with the staff, chart reviewed. The patient spends most of the time sleeping. The patient has some blunting of affect. Does not interact with the staff having mood swings, appears depressed. OBSERVATION: VITAL SIGNS: Temperature 97.4, blood pressure 117/69, pulse 81, respiration 18, O2 sat 95%. Slept about 7 hours last night. MEDICATIONS: Also reviewed the patient's current medications, currently on Abilify 2.5 mg at night, Cymbalta 60 mg at night, Wellbutrin 150 mg daily, gabapentin 200 mg t.i.d. She is also on Keppra 500 mg b.i.d., Namenda 10 mg b.i.d. ASSESSMENT: Major depressive disorder, recurrent with psychotic features. PLAN: Continue with the current treatment. BERKLEY KEARNS MD DR: CARLTON/christen JOB#: [id number] / [id number]
[2018-10-12] MEDS: LEVOTHYROXINE 100 MCG TABLET PO SCH (06:21)
[2018-10-12 06:28] VITALS: BP 132/75
[2018-10-12] MEDS: INSULIN LISPRO 300 UNITS/3 ML INSULN.PEN. SQ SCH ×3 (08:07→17:33)
[2018-10-12] MEDS: MEMANTINE 10 MG TABLET. PO SCH ×2 (08:09→20:10)
[2018-10-12] MEDS: ASPIRIN 81 MG TAB.CHEW PO SCH (08:09)
[2018-10-12] MEDS: GABAPENTIN 100 MG CAPSULE. PO SCH ×3 (08:09→20:11)
[2018-10-12] MEDS: levETIRAcetam 500 MG TABLET PO SCH ×2 (08:09→20:10)
[2018-10-12] MEDS: LACTOBACILLUS RHAMNOSUS GG 1 CAPSULE. PO SCH ×2 (08:09→20:10)
[2018-10-12] MEDS: amLODIPine BESYLATE 5 MG TABLET PO SCH (08:10)
[2018-10-12] MEDS: LISINOPRIL 20 MG TABLET PO SCH (08:12)
[2018-10-12] MEDS: buPROPion XL 150 MG TAB.ER.24H PO SCH (08:12)
[2018-10-12] MEDS: CETIRIZINE HCL 10 MG TABLET PO SCH (08:13)
[2018-10-12 16:01] VITALS: BP 139/82
[2018-10-12] MEDS: ARIPiprazole 5 MG TABLET PO SCH (20:10)
[2018-10-12] MEDS: DULoxetine HCL 60 MG CAPSULE.DR PO SCH (20:11)
[2018-10-12] MEDS: ATORVASTATIN CALCIUM 20 MG TABLET PO SCH (20:11)
[2018-10-12] MEDS: NITROFURANTOIN MONOHYD/M-CRYST 100 MG CAPSULE. PO SCH (20:11)
[2018-10-12] MEDS: INSULIN GLARGINE 300 UNITS/3 ML INSULN.PEN. SQ SCH (20:16)
[2018-10-12] MEDS: ENOXAPARIN 40 MG/0.4 ML SYRINGE. SQ SCH (20:19)
[2018-10-13] MEDS: LEVOTHYROXINE 100 MCG TABLET PO SCH (06:02)
[2018-10-13 06:19] VITALS: BP 155/77
[2018-10-13] MEDS: INSULIN LISPRO 300 UNITS/3 ML INSULN.PEN. SQ SCH ×3 (08:33→17:24)
[2018-10-13] MEDS: MEMANTINE 10 MG TABLET. PO SCH ×2 (08:34→19:41)
[2018-10-13] MEDS: LACTOBACILLUS RHAMNOSUS GG 1 CAPSULE. PO SCH ×2 (08:34→19:40)
[2018-10-13] MEDS: levETIRAcetam 500 MG TABLET PO SCH ×2 (08:34→19:41)
[2018-10-13] MEDS: ASPIRIN 81 MG TAB.CHEW PO SCH (08:34)
[2018-10-13] MEDS: GABAPENTIN 100 MG CAPSULE. PO SCH ×3 (08:35→19:42)
[2018-10-13] MEDS: amLODIPine BESYLATE 5 MG TABLET PO SCH (08:36)
[2018-10-13] MEDS: LISINOPRIL 20 MG TABLET PO SCH (08:37)
[2018-10-13] MEDS: buPROPion XL 150 MG TAB.ER.24H PO SCH (08:37)
[2018-10-13] MEDS: CETIRIZINE HCL 10 MG TABLET PO SCH (08:37)
[2018-10-13 16:03] VITALS: BP 130/78
--- NOTE | 2018-10-13 17:28 | PN ---
DATE: 10/13/2018 SUBJECTIVE: The patient was seen today, met with the staff, chart reviewed. The patient continues to exhibit alternating continued sleep. She was difficult to wake up and also at times she is awake but at times she tends to get into some problems of confusion. The patient's behavior has been unpredictable most of the time. The patient continues to show some blunting of affect. The patient apparently does not interact with the staff or residents, appear depressed. OBSERVATION: VITAL SIGNS: Temperature 97.6, blood pressure 150/72, pulse 71, respirations 19, O2 sat 99%. Slept about 4 hours last night. Appetite varies. The patient's lab reviewed. MEDICATIONS: The patient's current medications include Abilify, Cymbalta, Wellbutrin, gabapentin, Keppra and Namenda. ASSESSMENT: Major depressive disorder, recurrent with psychotic features, cognitive disorder, unspecified. PLAN: Continue with the treatment. BERKLEY KEARNS MD DR: CARLTON/christen JOB#: [id number] / [id number]
[2018-10-13] MEDS: NITROFURANTOIN MONOHYD/M-CRYST 100 MG CAPSULE. PO SCH (19:41)
[2018-10-13] MEDS: ARIPiprazole 5 MG TABLET PO SCH (19:41)
[2018-10-13] MEDS: ATORVASTATIN CALCIUM 20 MG TABLET PO SCH (19:41)
[2018-10-13] MEDS: DULoxetine HCL 60 MG CAPSULE.DR PO SCH (19:41)
[2018-10-13] MEDS: ENOXAPARIN 40 MG/0.4 ML SYRINGE. SQ SCH (19:42)
[2018-10-13] MEDS: INSULIN GLARGINE 300 UNITS/3 ML INSULN.PEN. SQ SCH (19:43)
[2018-10-14 06:06] VITALS: BP 149/78
[2018-10-14] MEDS: LEVOTHYROXINE 100 MCG TABLET PO SCH (06:50)
[2018-10-14] MEDS: INSULIN LISPRO 300 UNITS/3 ML INSULN.PEN. SQ SCH ×3 (08:42→17:20)
[2018-10-14] MEDS: ASPIRIN 81 MG TAB.CHEW PO SCH (08:51)
[2018-10-14] MEDS: levETIRAcetam 500 MG TABLET PO SCH ×2 (08:51→19:56)
[2018-10-14] MEDS: LACTOBACILLUS RHAMNOSUS GG 1 CAPSULE. PO SCH ×2 (08:51→19:55)
[2018-10-14] MEDS: MEMANTINE 10 MG TABLET. PO SCH ×2 (08:51→19:56)
[2018-10-14] MEDS: GABAPENTIN 100 MG CAPSULE. PO SCH ×3 (08:53→19:57)
[2018-10-14] MEDS: amLODIPine BESYLATE 5 MG TABLET PO SCH (08:55)
[2018-10-14] MEDS: CETIRIZINE HCL 10 MG TABLET PO SCH (08:56)
[2018-10-14] MEDS: buPROPion XL 150 MG TAB.ER.24H PO SCH (08:56)
[2018-10-14] MEDS: LISINOPRIL 20 MG TABLET PO SCH (08:56)
[2018-10-14 16:44] VITALS: BP 115/73
[2018-10-14] MEDS: ATORVASTATIN CALCIUM 20 MG TABLET PO SCH (19:55)
[2018-10-14] MEDS: DULoxetine HCL 60 MG CAPSULE.DR PO SCH (19:55)
[2018-10-14] MEDS: ARIPiprazole 5 MG TABLET PO SCH (19:56)
[2018-10-14] MEDS: NITROFURANTOIN MONOHYD/M-CRYST 100 MG CAPSULE. PO SCH (19:56)
[2018-10-14] MEDS: ENOXAPARIN 40 MG/0.4 ML SYRINGE. SQ SCH (19:58)
[2018-10-14] MEDS: INSULIN GLARGINE 300 UNITS/3 ML INSULN.PEN. SQ SCH (19:59)
[2018-10-15 05:59] VITALS: BP 122/75
[2018-10-15] MEDS: LEVOTHYROXINE 100 MCG TABLET PO SCH (06:07)
[2018-10-15] MEDS: INSULIN LISPRO 300 UNITS/3 ML INSULN.PEN. SQ SCH ×3 (08:00→17:46)
[2018-10-15] MEDS: MEMANTINE 10 MG TABLET. PO SCH ×2 (08:21→20:57)
[2018-10-15] MEDS: levETIRAcetam 500 MG TABLET PO SCH ×2 (08:21→20:58)
[2018-10-15] MEDS: GABAPENTIN 100 MG CAPSULE. PO SCH ×3 (08:21→20:57)
[2018-10-15] MEDS: ASPIRIN 81 MG TAB.CHEW PO SCH (08:21)
[2018-10-15] MEDS: CETIRIZINE HCL 10 MG TABLET PO SCH (08:22)
[2018-10-15] MEDS: LISINOPRIL 20 MG TABLET PO SCH (08:22)
[2018-10-15] MEDS: LACTOBACILLUS RHAMNOSUS GG 1 CAPSULE. PO SCH ×2 (08:22→20:57)
[2018-10-15] MEDS: buPROPion XL 150 MG TAB.ER.24H PO SCH (08:22)
[2018-10-15] MEDS: amLODIPine BESYLATE 5 MG TABLET PO SCH (08:22)
--- NOTE | 2018-10-15 09:21 | PDOC ---
Exam Note: José Miguel Note: Late entry for DOS 10/14/2018. Please also refer to the separate dictated note~ for this date of service dictated separately.~Patient seen individually. Discussed the patient with Nursing staff reviewed the chart.~Reviewed interim history and current functioning. Reviewed vital signs,~Labs/ Radiology~and current medications noted below. Continue current treatment with the changes noted in the dictated addendum note Assessment: Vital Signs: VS - Last 72 Hours, by Label Date Time Temp Pulse Resp B/P (MAP) Pulse Ox O2 Delivery O2 Flow Rate FiO2 10/15/18 08:22 60 122/75 10/15/18 08:22 60 122/75 10/15/18 05:59 97.3 60 14 122/75 (91) 99 10/14/18 16:44 97.4 79 18 115/73 (87) 100 10/14/18 08:56 60 149/78 10/14/18 08:55 60 149/78 10/14/18 06:06 97.5 60 16 149/78 (101) 93 10/13/18 16:03 97.6 84 20 130/78 (95) 98 10/13/18 08:37 75 155/77 10/13/18 08:36 75 155/77 10/13/18 06:19 98.8 75 18 155/77 (103) 100 10/12/18 16:01 97.2 76 139/82 (101) 99 Vital Signs Date Time Temp Pulse Resp B/P (MAP) Pulse Ox O2 Delivery O2 Flow Rate FiO2 10/15/18 08:22 60 122/75 10/15/18 05:59 97.3 14 99 10/10/18 16:04 Room Air I&O Intake and Output 10/15/18 07:01 Intake Total 940 ml Balance 940 ml Intake Oral 940 ml # Voids 1 # Bowel Movements 1 Labs: Laboratory Tests Test 10/14/18 11:53 10/14/18 16:59 10/14/18 18:58 10/15/18 07:18 Glucose (Fingerstick) 174 mg/dL (70-99) H 192 mg/dL (70-99) H 210 mg/dL (70-99) H 142 mg/dL (70-99) H Current Medications: Meds: Current Medications Acetaminophen (Tylenol) 650 mg PRN Q6HRS PRN PO PAIN / TEMP Last administered on 10/10/18 09:36; Start 08/08/18 at 20:00 Multi-Ingredient Ointment (Analgesic [place]) 1 frank PRN QID PRN TP MUSCLE PAIN Last administered on 09/28/18 23:29; Start 08/08/18 at 20:00 Al Hydroxide/Mg Hydroxide (Mylanta Plus Xs) 15 ml PRN AFTMEALHC PRN PO DYSPEPSIA; Start 08/08/18 at 20:00 Magnesium Hydroxide (Milk Of Magnesia) 2,400 mg PRN QHS PRN PO CONSTIPATION Last administered on 10/10/18 23:24; Start 08/08/18 at 20:00 Memantine (Namenda) 10 mg BID PO Last administered on 10/15/18 08:21; Start 08/08/18 at 22:00 Quetiapine Fumarate (SEROquel) 25 mg DAILY PO Last administered on 09/05/18at 08 :51; Start 08/09/18 at 09:00; Stop 09/05/18 at 11:58; Status DC Quetiapine Fumarate (SEROquel) 75 mg HS PO Last administered on 09/21/18at 20: 38; Start 08/08/18 at 22:00; Stop 09/22/18 at 18:49; Status DC Venlafaxine HCl (Effexor) 50 mg TID PO Last administered on 08/10/18at 13:40; Start 08/09/18 at 09:00; Stop 08/10/18 at 17:54; Status DC Acetaminophen (Tylenol) 650 mg PRN Q4HRS PRN PO PAIN / TEMP; Start 08/08/18 at 21:30; Status Cancel Levothyroxine Sodium (Synthroid) 100 mcg DAILY06 PO Last administered on 06:07; Start 08/09/18 at 06:00 Amlodipine Besylate (Norvasc) 5 mg DAILY PO Last administered on 10/15/18 08: 22; Start 08/09/18 at 09:00 Aspirin (Children'S Aspirin) 81 mg DAILY PO Last administered on 10/15/18 08: 21; Start 08/09/18 at 09:00 Lisinopril (Prinivil) 20 mg DAILY PO Last administered on 10/15/18 08:22; Start 08/09/18 at 09:00 Vitamin D (Vitamin D3) 50,000 unit WEEKLY PO Last administered on 10/10/18 09: 26; Start 08/15/18 at 09:00 Heparin Sodium (Porcine) (Heparin Sq) 5,000 unit Q8HRS SQ Last administered on 08/27/18at 22:37; Start 08/08/18 at 22:00; Stop 08/27/18 at 23:00; Status DC Levetiracetam (Keppra) 500 mg BID PO Last administered on 10/15/18 08:21; Start 08/08/18 at 22:00 Atorvastatin Calcium (Lipitor) 20 mg QHS PO Last administered on 10/14/18 19: 55; Start 08/09/18 at 21:00 Insulin Human Lispro (HumaLOG) 0-5 UNITS TIDWMEALS SQ Last administered on 09/05at 09:13; Start 08/09/18 at 08:00; Stop 09/05/18 at 14:16; Status DC Dextrose 12.5 gm PRN Q15MIN PRN IV SEE COMMENTS; Start 08/09/18 at 05:45; Stop 09/05/18 at 14:16; Status DC Duloxetine HCl (Cymbalta) 30 mg DAILY PO Last administered on 08/12/18at 08:06 ; Start 08/11/18 at 09:00; Stop 08/12/18 at 09:02; Status DC Duloxetine HCl (Cymbalta) 60 mg DAILY PO Last administered on 09/28/18at 08:28 ; Start 08/13/18 at 09:00; Stop 09/28/18 at 19:49; Status DC Cephalexin HCl (Keflex) 500 mg TID PO Last administered on 08/20/18at 19:28; Start 08/11/18 at 09:00; Stop 08/21/18 at 08:59; Status DC Lactobacillus Rhamnosus (Culturelle) 1 cap BID PO Last administered on 08:22; Start 08/11/18 at 09:00 Levothyroxine Sodium (Synthroid) 100 mcg 1X ONCE PO Last administered on 08/15at 06:23; Start 08/15/18 at 06:30; Stop 08/15/18 at 06:31; Status DC Olanzapine (ZyPREXA ZYDIS) 10 mg PRN BID PRN PO AGITATION; Start 08/24/18 at 17:45; Stop 09/22/18 at 12:01; Status DC Olanzapine (ZyPREXA IM) 5 mg PRN BID PRN IM AGITATION Last administered on at 17:53; Start 08/24/18 at 17:45; Stop 09/22/18 at 12:01; Status DC Cefpodoxime Proxetil (Vantin) 200 mg BID PO Last administered on 08/27/18at 08: 28; Start 08/25/18 at 17:30; Stop 08/27/18 at 17:27; Status DC Gabapentin (Neurontin) 100 mg BID PO Last administered on 09/13/18at 09:05; Start 08/25/18 at 21:00; Stop 09/13/18 at 16:30; Status DC Quetiapine Fumarate (SEROquel) 12.5 mg DAILY16 PO Last administered on at 16:29; Start 08/27/18 at 16:00; Stop 09/16/18 at 16:52; Status DC Heparin Sodium (Porcine) (Heparin Sodium) 5,000 unit Q8HRS SQ Last administered on 09/25/18at 13:45; Start 08/28/18 at 06:00; Stop 09/25/18 at 18 :16; Status DC Ciprofloxacin (Cipro) 500 mg BID PO Last administered on 09/06/18at 08:09; Start 08/27/18 at 21:00; Stop 09/06/18 at 20:59; Status DC Insulin Human Lispro (HumaLOG) 0-9 UNITS TIDWMEALS SQ Last administered on 10/14at 17:20; Start 09/05/18 at 17:00 Dextrose 12.5 gm PRN Q15MIN PRN IV SEE COMMENTS; Start 09/05/18 at 14:15 Gabapentin (Neurontin) 200 mg TID PO Last administered on 10/15/18at 08:21; Start 09/13/18 at 21:00 Bupropion HCl (Wellbutrin Xl) 150 mg DAILY PO Last administered on 10/15/18 08 :22; Start 09/17/18 at 09:00 Insulin Glargine (Lantus) 15 units QHS SQ Last administered on 10/14/18 19:59 ; Start 09/19/18 at 21:00 Olanzapine (ZyPREXA ZYDIS) 2.5 mg PRN Q2HR PRN PO PSYCHOSIS Last administered on 10/13/18 09:00; Start 09/22/18 at 12:00 Quetiapine Fumarate (SEROquel) 50 mg HS PO Last administered on 09/27/18at 21: 28; Start 09/22/18 at 21:00; Stop 09/28/18 at 19:49; Status DC Enoxaparin Sodium (Lovenox 40mg Syringe) 40 mg Q24H SQ Last administered on 19:58; Start 09/25/18 at 21:00 Duloxetine HCl (Cymbalta) 60 mg HS PO Last administered on 10/14/18 19:55; Start 09/29/18 at 21:00 Quetiapine Fumarate (SEROquel) 25 mg HS PO Last administered on 09/29/18at 20: 59; Start 09/28/18 at 21:00; Stop 09/30/18 at 17:23; Status DC Aripiprazole (Abilify) 2.5 mg QHS PO Last administered on 10/14/18 19:56; Start 09/30/18 at 21:00 Guaifenesin (Robitussin Dm) 10 ml PRN Q6HRS PRN PO COUGH Last administered on 19:11; Start 10/02/18 at 15:00 Nitrofurantoin Macrocrystals (Macrobid) 100 mg QHS PO Last administered on 10/14 19:56; Start 10/03/18 at 21:00 Cetirizine HCl (ZyrTEC) 10 mg DAILY PO Last administered on 10/15/18 08:22; Start 10/12/18 at 09:00 Active Scripts Active Reported Seroquel (Quetiapine Fumarate) 25 Mg Tablet 12.5 Mg PO DAILY16 Olanzapine 10 Mg Tablet 10 Mg PO PRN BID PRN Olanzapine Inj (Olanzapine) 10 Mg Vial 5 Mg IM PRN BID PRN Analgesic [place] (Methyl Salicylate/Menthol) 28 Gm Oint...g. 1 Frank TP PRN QID PRN Milk Of Magnesia (Magnesium Hydroxide) 2,400 Mg/10 Ml Oral.susp 2,400 Mg PO PRN QHS PRN Advanced Antacid Liquid (Mag Hydrox/Al Hydrox/Simeth) 355 Ml Oral.susp 15 Ml PO PRN AFTMEALHC PRN Culturelle (Lactobacillus Rhamnosus Gg) 1 Each Cap.sprink 1 Cap PO BID Humalog (Insulin Lispro) 100 Unit/1 Ml Cartridge 0-5 Unit SQ TIDWMEALS Gabapentin 100 Mg Capsule 100 Mg PO BID Cymbalta (Duloxetine Hcl) 60 Mg Capsule.dr 60 Mg PO DAILY Ciprofloxacin Hcl 500 Mg Tablet 500 Mg PO BID Venlafaxine Hcl Er (Venlafaxine Hcl) 150 Mg Tab.er.24 150 Mg PO DAILYWBKFT Quetiapine Fumarate 25 Mg Tablet 25 Mg PO DAILY Seroquel (Quetiapine Fumarate) 25 Mg Tablet 75 Mg PO QHS Namenda (Memantine Hcl) 10 Mg Tablet 10 Mg PO BID Lovastatin 40 Mg Tablet 80 Mg PO QHS Levothyroxine Sodium 100 Mcg Tablet 100 Mcg PO DAILYAC Keppra (Levetiracetam) 500 Mg Tablet 500 Mg PO BID Heparin 5,000 Unit/5 ml-Ns (Heparin Sod,Porcine/0.9 % NaCl) 5,000 Unit/5 Ml Syringe 5,000 Unit IM Q8HRS Vitamin D2 (Ergocalciferol (Vitamin D2)) 50,000 Unit Capsule 50,000 Unit PO WEEKLY Benazepril Hcl 20 Mg Tablet 20 Mg PO DAILY Aspirin 81 Mg Tab.chew 81 Mg PO DAILY Amlodipine Besylate 5 Mg Tablet 5 Mg PO DAILY Tylenol (Acetaminophen) 325 Mg Tablet 650 Mg PO PRN Q4HRS PRN I have reviewed the current psychotropics carefully including drug interactions. Risk benefit ratio favors no change other than as noted in my dictated progress note. Diagnosis: Problems: (1) Anxiety disorder (2) Mild cognitive disorder (3) Major depressive disorder, recurrent episode (4) Impulse control disorder ANTONIA BAILEY MD Oct 15, 2018 09:21
[2018-10-15 17:20] VITALS: BP 113/73
[2018-10-15] MEDS: DULoxetine HCL 60 MG CAPSULE.DR PO SCH (20:57)
[2018-10-15] MEDS: ARIPiprazole 5 MG TABLET PO SCH (20:57)
[2018-10-15] MEDS: NITROFURANTOIN MONOHYD/M-CRYST 100 MG CAPSULE. PO SCH (20:57)
[2018-10-15] MEDS: ATORVASTATIN CALCIUM 20 MG TABLET PO SCH (20:58)
[2018-10-15] MEDS: ENOXAPARIN 40 MG/0.4 ML SYRINGE. SQ SCH (20:59)
[2018-10-15] MEDS: INSULIN GLARGINE 300 UNITS/3 ML INSULN.PEN. SQ SCH (21:01)
--- NOTE | 2018-10-15 21:38 | PN ---
DATE: 10/14/2018 PSYCHIATRIC PROGRESS NOTE This late entry 10/14/2018 covers elements not covered in my initial note. SUBJECTIVE: I met with the patient in the evening. The patient slept 7 hours previous night. On further review, it was 6-3/4 hours. She has had a good night per nursing report, somewhat withdrawn during the day, but less so than before. REVIEW OF SYSTEMS: Ambulation impaired, in wheelchair. No CV, , pulmonary, eye system symptoms on review. MENTAL STATUS EXAM: Oriented to herself and situation. Speech moderate latency, often responses monosyllabic. Abstraction fair, computation impaired, language function intact. Mood and affect still depressed, but less so than before. No suicidal ideation. LABORATORY DATA: Reviewed. IMPRESSION: Major depressive disorder, recurrent, in partial remission. Rest unchanged. PLAN: No change from initial note. MAN Han BAILEY MD DR: RAYMON/christen JOB#: [id number] / [id number]
--- NOTE | 2018-10-15 22:46 | PDOC ---
Exam Note: José Miguel Note: Please also refer to the separate dictated note~for this date of service dictated separately.~Patient seen individually. Discussed the patient with Nursing staff reviewed the chart.~Reviewed interim history and current functioning. Reviewed vital signs,~Labs/ Radiology~and current medications noted below. Continue current treatment with the changes noted in the dictated addendum note Assessment: Vital Signs: Vital Signs Date Time Temp Pulse Resp B/P (MAP) Pulse Ox O2 Delivery O2 Flow Rate FiO2 10/15/18 17:20 98.0 80 18 113/73 (86) 95 10/10/18 16:04 Room Air I&O Intake and Output 10/15/18 07:01 Intake Total 940 ml Balance 940 ml Intake Oral 940 ml # Voids 1 # Bowel Movements 1 Labs: Laboratory Tests Test 10/15/18 07:18 10/15/18 11:05 10/15/18 17:04 10/15/18 19:16 Glucose (Fingerstick) 142 mg/dL (70-99) H 197 mg/dL (70-99) H 184 mg/dL (70-99) H 203 mg/dL (70-99) H Current Medications: Meds: Current Medications Acetaminophen (Tylenol) 650 mg PRN Q6HRS PRN PO PAIN / TEMP Last administered on 10/10/18 09:36; Start 08/08/18 at 20:00 Multi-Ingredient Ointment (Analgesic [place]) 1 frank PRN QID PRN TP MUSCLE PAIN Last administered on 09/28/18at 23:29; Start 08/08/18 at 20:00 Al Hydroxide/Mg Hydroxide (Mylanta Plus Xs) 15 ml PRN AFTMEALHC PRN PO DYSPEPSIA; Start 08/08/18 at 20:00 Magnesium Hydroxide (Milk Of Magnesia) 2,400 mg PRN QHS PRN PO CONSTIPATION Last administered on 10/10/18 23:24; Start 08/08/18 at 20:00 Memantine (Namenda) 10 mg BID PO Last administered on 10/15/18 20:57; Start 08/08/18 at 22:00 Quetiapine Fumarate (SEROquel) 25 mg DAILY PO Last administered on 09/05/18at 08 :51; Start 08/09/18 at 09:00; Stop 09/05/18 at 11:58; Status DC Quetiapine Fumarate (SEROquel) 75 mg HS PO Last administered on 09/21/18at 20: 38; Start 08/08/18 at 22:00; Stop 09/22/18 at 18:49; Status DC Venlafaxine HCl (Effexor) 50 mg TID PO Last administered on 08/10/18at 13:40; Start 08/09/18 at 09:00; Stop 08/10/18 at 17:54; Status DC Acetaminophen (Tylenol) 650 mg PRN Q4HRS PRN PO PAIN / TEMP; Start 08/08/18 at 21:30; Status Cancel Levothyroxine Sodium (Synthroid) 100 mcg DAILY06 PO Last administered on 06:07; Start 08/09/18 at 06:00 Amlodipine Besylate (Norvasc) 5 mg DAILY PO Last administered on 10/15/18 08: 22; Start 08/09/18 at 09:00 Aspirin (Children'S Aspirin) 81 mg DAILY PO Last administered on 10/15/18 08: 21; Start 08/09/18 at 09:00 Lisinopril (Prinivil) 20 mg DAILY PO Last administered on 10/15/18 08:22; Start 08/09/18 at 09:00 Vitamin D (Vitamin D3) 50,000 unit WEEKLY PO Last administered on 10/10/18 09: 26; Start 08/15/18 at 09:00 Heparin Sodium (Porcine) (Heparin Sq) 5,000 unit Q8HRS SQ Last administered on 08/27/18at 22:37; Start 08/08/18 at 22:00; Stop 08/27/18 at 23:00; Status DC Levetiracetam (Keppra) 500 mg BID PO Last administered on 10/15/18 20:58; Start 08/08/18 at 22:00 Atorvastatin Calcium (Lipitor) 20 mg QHS PO Last administered on 10/15/18 20: 58; Start 08/09/18 at 21:00 Insulin Human Lispro (HumaLOG) 0-5 UNITS TIDWMEALS SQ Last administered on 09/05at 09:13; Start 08/09/18 at 08:00; Stop 09/05/18 at 14:16; Status DC Dextrose 12.5 gm PRN Q15MIN PRN IV SEE COMMENTS; Start 08/09/18 at 05:45; Stop 09/05/18 at 14:16; Status DC Duloxetine HCl (Cymbalta) 30 mg DAILY PO Last administered on 08/12/18at 08:06 ; Start 08/11/18 at 09:00; Stop 08/12/18 at 09:02; Status DC Duloxetine HCl (Cymbalta) 60 mg DAILY PO Last administered on 09/28/18at 08:28 ; Start 08/13/18 at 09:00; Stop 09/28/18 at 19:49; Status DC Cephalexin HCl (Keflex) 500 mg TID PO Last administered on 08/20/18at 19:28; Start 08/11/18 at 09:00; Stop 08/21/18 at 08:59; Status DC Lactobacillus Rhamnosus (Culturelle) 1 cap BID PO Last administered on at 20:57; Start 08/11/18 at 09:00 Levothyroxine Sodium (Synthroid) 100 mcg 1X ONCE PO Last administered on 08/15at 06:23; Start 08/15/18 at 06:30; Stop 08/15/18 at 06:31; Status DC Olanzapine (ZyPREXA ZYDIS) 10 mg PRN BID PRN PO AGITATION; Start 08/24/18 at 17:45; Stop 09/22/18 at 12:01; Status DC Olanzapine (ZyPREXA IM) 5 mg PRN BID PRN IM AGITATION Last administered on at 17:53; Start 08/24/18 at 17:45; Stop 09/22/18 at 12:01; Status DC Cefpodoxime Proxetil (Vantin) 200 mg BID PO Last administered on 08/27/18at 08: 28; Start 08/25/18 at 17:30; Stop 08/27/18 at 17:27; Status DC Gabapentin (Neurontin) 100 mg BID PO Last administered on 09/13/18at 09:05; Start 08/25/18 at 21:00; Stop 09/13/18 at 16:30; Status DC Quetiapine Fumarate (SEROquel) 12.5 mg DAILY16 PO Last administered on at 16:29; Start 08/27/18 at 16:00; Stop 09/16/18 at 16:52; Status DC Heparin Sodium (Porcine) (Heparin Sodium) 5,000 unit Q8HRS SQ Last administered on 09/25/18at 13:45; Start 08/28/18 at 06:00; Stop 09/25/18 at 18 :16; Status DC Ciprofloxacin (Cipro) 500 mg BID PO Last administered on 09/06/18at 08:09; Start 08/27/18 at 21:00; Stop 09/06/18 at 20:59; Status DC Insulin Human Lispro (HumaLOG) 0-9 UNITS TIDWMEALS SQ Last administered on 10/15 17:46; Start 09/05/18 at 17:00 Dextrose 12.5 gm PRN Q15MIN PRN IV SEE COMMENTS; Start 09/05/18 at 14:15 Gabapentin (Neurontin) 200 mg TID PO Last administered on 10/15/18 20:57; Start 09/13/18 at 21:00 Bupropion HCl (Wellbutrin Xl) 150 mg DAILY PO Last administered on 10/15/18 08 :22; Start 09/17/18 at 09:00 Insulin Glargine (Lantus) 15 units QHS SQ Last administered on 10/15/18 21:01 ; Start 09/19/18 at 21:00 Olanzapine (ZyPREXA ZYDIS) 2.5 mg PRN Q2HR PRN PO PSYCHOSIS Last administered on 10/13/18 09:00; Start 09/22/18 at 12:00 Quetiapine Fumarate (SEROquel) 50 mg HS PO Last administered on 09/27/18at 21: 28; Start 09/22/18 at 21:00; Stop 09/28/18 at 19:49; Status DC Enoxaparin Sodium (Lovenox 40mg Syringe) 40 mg Q24H SQ Last administered on 20:59; Start 09/25/18 at 21:00 Duloxetine HCl (Cymbalta) 60 mg HS PO Last administered on 10/15/18 20:57; Start 09/29/18 at 21:00 Quetiapine Fumarate (SEROquel) 25 mg HS PO Last administered on 12/30/18at 20: 59; Start 09/28/18 at 21:00; Stop 09/30/18 at 17:23; Status DC Aripiprazole (Abilify) 2.5 mg QHS PO Last administered on 10/15/18at 20:57; Start 09/30/18 at 21:00 Guaifenesin (Robitussin Dm) 10 ml PRN Q6HRS PRN PO COUGH Last administered on at 19:11; Start 10/02/18 at 15:00 Nitrofurantoin Macrocrystals (Macrobid) 100 mg QHS PO Last administered on 10/15at 20:57; Start 10/03/18 at 21:00 Cetirizine HCl (ZyrTEC) 10 mg DAILY PO Last administered on 10/15/18at 08:22; Start 10/12/18 at 09:00 Active Scripts Active Reported Seroquel (Quetiapine Fumarate) 25 Mg Tablet 12.5 Mg PO DAILY16 Olanzapine 10 Mg Tablet 10 Mg PO PRN BID PRN Olanzapine Inj (Olanzapine) 10 Mg Vial 5 Mg IM PRN BID PRN Analgesic [place] (Methyl Salicylate/Menthol) 28 Gm Oint...g. 1 Frank TP PRN QID PRN Milk Of Magnesia (Magnesium Hydroxide) 2,400 Mg/10 Ml Oral.susp 2,400 Mg PO PRN QHS PRN Advanced Antacid Liquid (Mag Hydrox/Al Hydrox/Simeth) 355 Ml Oral.susp 15 Ml PO PRN AFTMEALHC PRN Culturelle (Lactobacillus Rhamnosus Gg) 1 Each Cap.sprink 1 Cap PO BID Humalog (Insulin Lispro) 100 Unit/1 Ml Cartridge 0-5 Unit SQ TIDWMEALS Gabapentin 100 Mg Capsule 100 Mg PO BID Cymbalta (Duloxetine Hcl) 60 Mg Capsule.dr 60 Mg PO DAILY Ciprofloxacin Hcl 500 Mg Tablet 500 Mg PO BID Venlafaxine Hcl Er (Venlafaxine Hcl) 150 Mg Tab.er.24 150 Mg PO DAILYWBKFT Quetiapine Fumarate 25 Mg Tablet 25 Mg PO DAILY Seroquel (Quetiapine Fumarate) 25 Mg Tablet 75 Mg PO QHS Namenda (Memantine Hcl) 10 Mg Tablet 10 Mg PO BID Lovastatin 40 Mg Tablet 80 Mg PO QHS Levothyroxine Sodium 100 Mcg Tablet 100 Mcg PO DAILYAC Keppra (Levetiracetam) 500 Mg Tablet 500 Mg PO BID Heparin 5,000 Unit/5 ml-Ns (Heparin Sod,Porcine/0.9 % NaCl) 5,000 Unit/5 Ml Syringe 5,000 Unit IM Q8HRS Vitamin D2 (Ergocalciferol (Vitamin D2)) 50,000 Unit Capsule 50,000 Unit PO WEEKLY Benazepril Hcl 20 Mg Tablet 20 Mg PO DAILY Aspirin 81 Mg Tab.chew 81 Mg PO DAILY Amlodipine Besylate 5 Mg Tablet 5 Mg PO DAILY Tylenol (Acetaminophen) 325 Mg Tablet 650 Mg PO PRN Q4HRS PRN I have reviewed the current psychotropics carefully including drug interactions. Risk benefit ratio favors no change other than as noted in my dictated progress note. Diagnosis: Problems: (1) Anxiety disorder (2) Mild cognitive disorder (3) Major depressive disorder, recurrent episode (4) Impulse control disorder ANTONIA BAILEY MD Oct 15, 2018 22:46
[2018-10-16] MEDS: LEVOTHYROXINE 100 MCG TABLET PO SCH (05:32)
[2018-10-16 05:49] VITALS: BP 146/70
[2018-10-16] MEDS: INSULIN LISPRO 300 UNITS/3 ML INSULN.PEN. SQ SCH ×3 (08:00→17:27)
[2018-10-16] MEDS: MEMANTINE 10 MG TABLET. PO SCH ×2 (08:08→19:34)
[2018-10-16] MEDS: amLODIPine BESYLATE 5 MG TABLET PO SCH (08:08)
[2018-10-16] MEDS: GABAPENTIN 100 MG CAPSULE. PO SCH ×3 (08:08→19:32)
[2018-10-16] MEDS: LISINOPRIL 20 MG TABLET PO SCH (08:08)
[2018-10-16] MEDS: LACTOBACILLUS RHAMNOSUS GG 1 CAPSULE. PO SCH ×2 (08:08→19:34)
[2018-10-16] MEDS: CETIRIZINE HCL 10 MG TABLET PO SCH (08:08)
[2018-10-16] MEDS: buPROPion XL 150 MG TAB.ER.24H PO SCH (08:09)
[2018-10-16] MEDS: levETIRAcetam 500 MG TABLET PO SCH ×2 (08:09→19:34)
[2018-10-16] MEDS: ASPIRIN 81 MG TAB.CHEW PO SCH (08:09)
[2018-10-16 15:53] VITALS: BP 130/70
[2018-10-16] MEDS: DULoxetine HCL 60 MG CAPSULE.DR PO SCH (19:32)
[2018-10-16] MEDS: NITROFURANTOIN MONOHYD/M-CRYST 100 MG CAPSULE. PO SCH (19:32)
[2018-10-16] MEDS: ATORVASTATIN CALCIUM 20 MG TABLET PO SCH (19:34)
[2018-10-16] MEDS: ARIPiprazole 5 MG TABLET PO SCH (19:34)
[2018-10-16] MEDS: ENOXAPARIN 40 MG/0.4 ML SYRINGE. SQ SCH (19:35)
[2018-10-16] MEDS: INSULIN GLARGINE 300 UNITS/3 ML INSULN.PEN. SQ SCH (19:39)
--- NOTE | 2018-10-16 21:13 | PN ---
DATE: 10/15/2018 PSYCHIATRIC PROGRESS NOTE This late entry 10/15/2018, covers elements not covered in my initial note. SUBJECTIVE: I met with the patient in the evening. The patient slept 7 hours previous night. She was tearful the previous night in the evening, but overall better, more awake, alert. REVIEW OF SYSTEMS: Ambulation impaired, in wheelchair. No CV, , pulmonary, eye system symptoms on review. MENTAL STATUS EXAM: Oriented to herself, situation. Speech has some latency, low in volume. Abstraction fair, computation impaired, language function intact. Mood and affect showing improvement, still somewhat depressed, but much improved. No suicidal ideation. LABORATORY DATA: Reviewed. IMPRESSION: Major depressive disorder with psychotic features in partial remission. Rest unchanged. PLAN: No change from initial note. MAN Han BAILEY MD DR: RAYMON/christen JOB#: [id number] / [id number]
--- NOTE | 2018-10-16 22:49 | PDOC ---
Exam Note: José Miguel Note: Please also refer to the separate dictated note~for this date of service dictated separately.~Patient seen individually. Discussed the patient with Nursing staff reviewed the chart.~Reviewed interim history and current functioning. Reviewed vital signs,~Labs/ Radiology~and current medications noted below. Continue current treatment with the changes noted in the dictated addendum note Assessment: Vital Signs: Vital Signs Date Time Temp Pulse Resp B/P (MAP) Pulse Ox O2 Delivery O2 Flow Rate FiO2 10/16/18 15:53 97.6 78 16 130/70 (90) 98 10/10/18 16:04 Room Air I&O Intake and Output 10/16/18 07:01 Intake Total 840 ml Balance 840 ml Intake Oral 840 ml Labs: Laboratory Tests Test 10/16/18 07:07 10/16/18 11:37 10/16/18 16:25 10/16/18 19:07 Glucose (Fingerstick) 125 mg/dL (70-99) H 191 mg/dL (70-99) H 207 mg/dL (70-99) H 170 mg/dL (70-99) H Current Medications: Meds: Current Medications Acetaminophen (Tylenol) 650 mg PRN Q6HRS PRN PO PAIN / TEMP Last administered on 10/10/18 09:36; Start 08/08/18 at 20:00 Multi-Ingredient Ointment (Analgesic [place]) 1 frank PRN QID PRN TP MUSCLE PAIN Last administered on 09/28/18at 23:29; Start 08/08/18 at 20:00 Al Hydroxide/Mg Hydroxide (Mylanta Plus Xs) 15 ml PRN AFTMEALHC PRN PO DYSPEPSIA; Start 08/08/18 at 20:00 Magnesium Hydroxide (Milk Of Magnesia) 2,400 mg PRN QHS PRN PO CONSTIPATION Last administered on 10/10/18 23:24; Start 08/08/18 at 20:00 Memantine (Namenda) 10 mg BID PO Last administered on 10/16/18 19:34; Start 08/08/18 at 22:00 Quetiapine Fumarate (SEROquel) 25 mg DAILY PO Last administered on 09/05/18at 08 :51; Start 08/09/18 at 09:00; Stop 09/05/18 at 11:58; Status DC Quetiapine Fumarate (SEROquel) 75 mg HS PO Last administered on 09/21/18at 20: 38; Start 08/08/18 at 22:00; Stop 09/22/18 at 18:49; Status DC Venlafaxine HCl (Effexor) 50 mg TID PO Last administered on 08/10/18at 13:40; Start 08/09/18 at 09:00; Stop 08/10/18 at 17:54; Status DC Acetaminophen (Tylenol) 650 mg PRN Q4HRS PRN PO PAIN / TEMP; Start 08/08/18 at 21:30; Status Cancel Levothyroxine Sodium (Synthroid) 100 mcg DAILY06 PO Last administered on 05:32; Start 08/09/18 at 06:00 Amlodipine Besylate (Norvasc) 5 mg DAILY PO Last administered on 10/16/18 08: 08; Start 08/09/18 at 09:00 Aspirin (Children'S Aspirin) 81 mg DAILY PO Last administered on 10/16/18 08: 09; Start 08/09/18 at 09:00 Lisinopril (Prinivil) 20 mg DAILY PO Last administered on 10/16/18 08:08; Start 08/09/18 at 09:00 Vitamin D (Vitamin D3) 50,000 unit WEEKLY PO Last administered on 10/10/18 09: 26; Start 08/15/18 at 09:00 Heparin Sodium (Porcine) (Heparin Sq) 5,000 unit Q8HRS SQ Last administered on 08/27/18at 22:37; Start 08/08/18 at 22:00; Stop 08/27/18 at 23:00; Status DC Levetiracetam (Keppra) 500 mg BID PO Last administered on 10/16/18 19:34; Start 08/08/18 at 22:00 Atorvastatin Calcium (Lipitor) 20 mg QHS PO Last administered on 10/16/18 19: 34; Start 08/09/18 at 21:00 Insulin Human Lispro (HumaLOG) 0-5 UNITS TIDWMEALS SQ Last administered on 09/05at 09:13; Start 08/09/18 at 08:00; Stop 09/05/18 at 14:16; Status DC Dextrose 12.5 gm PRN Q15MIN PRN IV SEE COMMENTS; Start 08/09/18 at 05:45; Stop 09/05/18 at 14:16; Status DC Duloxetine HCl (Cymbalta) 30 mg DAILY PO Last administered on 08/12/18at 08:06 ; Start 08/11/18 at 09:00; Stop 08/12/18 at 09:02; Status DC Duloxetine HCl (Cymbalta) 60 mg DAILY PO Last administered on 09/28/18at 08:28 ; Start 08/13/18 at 09:00; Stop 09/28/18 at 19:49; Status DC Cephalexin HCl (Keflex) 500 mg TID PO Last administered on 08/20/18at 19:28; Start 08/11/18 at 09:00; Stop 08/21/18 at 08:59; Status DC Lactobacillus Rhamnosus (Culturelle) 1 cap BID PO Last administered on at 19:34; Start 08/11/18 at 09:00 Levothyroxine Sodium (Synthroid) 100 mcg 1X ONCE PO Last administered on 08/15at 06:23; Start 08/15/18 at 06:30; Stop 08/15/18 at 06:31; Status DC Olanzapine (ZyPREXA ZYDIS) 10 mg PRN BID PRN PO AGITATION; Start 08/24/18 at 17:45; Stop 09/22/18 at 12:01; Status DC Olanzapine (ZyPREXA IM) 5 mg PRN BID PRN IM AGITATION Last administered on at 17:53; Start 08/24/18 at 17:45; Stop 09/22/18 at 12:01; Status DC Cefpodoxime Proxetil (Vantin) 200 mg BID PO Last administered on 08/27/18at 08: 28; Start 08/25/18 at 17:30; Stop 08/27/18 at 17:27; Status DC Gabapentin (Neurontin) 100 mg BID PO Last administered on 09/13/18at 09:05; Start 08/25/18 at 21:00; Stop 09/13/18 at 16:30; Status DC Quetiapine Fumarate (SEROquel) 12.5 mg DAILY16 PO Last administered on at 16:29; Start 08/27/18 at 16:00; Stop 09/16/18 at 16:52; Status DC Heparin Sodium (Porcine) (Heparin Sodium) 5,000 unit Q8HRS SQ Last administered on 09/25/18at 13:45; Start 08/28/18 at 06:00; Stop 09/25/18 at 18 :16; Status DC Ciprofloxacin (Cipro) 500 mg BID PO Last administered on 09/06/18at 08:09; Start 08/27/18 at 21:00; Stop 09/06/18 at 20:59; Status DC Insulin Human Lispro (HumaLOG) 0-9 UNITS TIDWMEALS SQ Last administered on 10/16 17:27; Start 09/05/18 at 17:00 Dextrose 12.5 gm PRN Q15MIN PRN IV SEE COMMENTS; Start 09/05/18 at 14:15 Gabapentin (Neurontin) 200 mg TID PO Last administered on 10/16/18 19:32; Start 09/13/18 at 21:00 Bupropion HCl (Wellbutrin Xl) 150 mg DAILY PO Last administered on 10/16/18 08 :09; Start 09/17/18 at 09:00 Insulin Glargine (Lantus) 15 units QHS SQ Last administered on 10/16/18 19:39 ; Start 09/19/18 at 21:00 Olanzapine (ZyPREXA ZYDIS) 2.5 mg PRN Q2HR PRN PO PSYCHOSIS Last administered on 10/13/18 09:00; Start 09/22/18 at 12:00 Quetiapine Fumarate (SEROquel) 50 mg HS PO Last administered on 09/27/18at 21: 28; Start 09/22/18 at 21:00; Stop 09/28/18 at 19:49; Status DC Enoxaparin Sodium (Lovenox 40mg Syringe) 40 mg Q24H SQ Last administered on 19:35; Start 09/25/18 at 21:00 Duloxetine HCl (Cymbalta) 60 mg HS PO Last administered on 10/16/18 19:32; Start 09/29/18 at 21:00 Quetiapine Fumarate (SEROquel) 25 mg HS PO Last administered on 09/29/18at 20: 59; Start 09/28/18 at 21:00; Stop 09/30/18 at 17:23; Status DC Aripiprazole (Abilify) 2.5 mg QHS PO Last administered on 10/16/18at 19:34; Start 09/30/18 at 21:00 Guaifenesin (Robitussin Dm) 10 ml PRN Q6HRS PRN PO COUGH Last administered on at 19:11; Start 10/02/18 at 15:00 Nitrofurantoin Macrocrystals (Macrobid) 100 mg QHS PO Last administered on 10/16at 19:32; Start 10/03/18 at 21:00 Cetirizine HCl (ZyrTEC) 10 mg DAILY PO Last administered on 10/16/18at 08:08; Start 10/12/18 at 09:00 Active Scripts Active Reported Seroquel (Quetiapine Fumarate) 25 Mg Tablet 12.5 Mg PO DAILY16 Olanzapine 10 Mg Tablet 10 Mg PO PRN BID PRN Olanzapine Inj (Olanzapine) 10 Mg Vial 5 Mg IM PRN BID PRN Analgesic [place] (Methyl Salicylate/Menthol) 28 Gm Oint...g. 1 Frank TP PRN QID PRN Milk Of Magnesia (Magnesium Hydroxide) 2,400 Mg/10 Ml Oral.susp 2,400 Mg PO PRN QHS PRN Advanced Antacid Liquid (Mag Hydrox/Al Hydrox/Simeth) 355 Ml Oral.susp 15 Ml PO PRN AFTMEALHC PRN Culturelle (Lactobacillus Rhamnosus Gg) 1 Each Cap.sprink 1 Cap PO BID Humalog (Insulin Lispro) 100 Unit/1 Ml Cartridge 0-5 Unit SQ TIDWMEALS Gabapentin 100 Mg Capsule 100 Mg PO BID Cymbalta (Duloxetine Hcl) 60 Mg Capsule.dr 60 Mg PO DAILY Ciprofloxacin Hcl 500 Mg Tablet 500 Mg PO BID Venlafaxine Hcl Er (Venlafaxine Hcl) 150 Mg Tab.er.24 150 Mg PO DAILYWBKFT Quetiapine Fumarate 25 Mg Tablet 25 Mg PO DAILY Seroquel (Quetiapine Fumarate) 25 Mg Tablet 75 Mg PO QHS Namenda (Memantine Hcl) 10 Mg Tablet 10 Mg PO BID Lovastatin 40 Mg Tablet 80 Mg PO QHS Levothyroxine Sodium 100 Mcg Tablet 100 Mcg PO DAILYAC Keppra (Levetiracetam) 500 Mg Tablet 500 Mg PO BID Heparin 5,000 Unit/5 ml-Ns (Heparin Sod,Porcine/0.9 % NaCl) 5,000 Unit/5 Ml Syringe 5,000 Unit IM Q8HRS Vitamin D2 (Ergocalciferol (Vitamin D2)) 50,000 Unit Capsule 50,000 Unit PO WEEKLY Benazepril Hcl 20 Mg Tablet 20 Mg PO DAILY Aspirin 81 Mg Tab.chew 81 Mg PO DAILY Amlodipine Besylate 5 Mg Tablet 5 Mg PO DAILY Tylenol (Acetaminophen) 325 Mg Tablet 650 Mg PO PRN Q4HRS PRN I have reviewed the current psychotropics carefully including drug interactions. Risk benefit ratio favors no change other than as noted in my dictated progress note. Diagnosis: Problems: (1) Anxiety disorder (2) Mild cognitive disorder (3) Major depressive disorder, recurrent episode (4) Impulse control disorder ANTONIA BAILEY MD Oct 16, 2018 22:49
[2018-10-17 05:19] VITALS: BP 107/60
[2018-10-17] MEDS: LEVOTHYROXINE 100 MCG TABLET PO SCH (06:08)
[2018-10-17] MEDS: LACTOBACILLUS RHAMNOSUS GG 1 CAPSULE. PO SCH ×2 (07:40→19:33)
[2018-10-17] MEDS: ASPIRIN 81 MG TAB.CHEW PO SCH (07:40)
[2018-10-17] MEDS: levETIRAcetam 500 MG TABLET PO SCH ×2 (07:41→19:33)
[2018-10-17] MEDS: GABAPENTIN 100 MG CAPSULE. PO SCH ×3 (07:41→19:34)
[2018-10-17] MEDS: MEMANTINE 10 MG TABLET. PO SCH ×2 (07:41→19:34)
[2018-10-17] MEDS: CETIRIZINE HCL 10 MG TABLET PO SCH (07:42)
[2018-10-17] MEDS: buPROPion XL 150 MG TAB.ER.24H PO SCH (07:42)
[2018-10-17] MEDS: CHOLECALCIFEROL (VITAMIN D3) 50,000 UNIT CAPSULE PO SCH (07:42)
[2018-10-17 07:46] VITALS: BP 126/71
[2018-10-17] MEDS: amLODIPine BESYLATE 5 MG TABLET PO SCH (07:47)
[2018-10-17] MEDS: LISINOPRIL 20 MG TABLET PO SCH (07:48)
[2018-10-17] MEDS: INSULIN LISPRO 300 UNITS/3 ML INSULN.PEN. SQ SCH ×3 (08:14→17:39)
[2018-10-17 15:58] VITALS: BP 123/70
[2018-10-17] MEDS: ARIPiprazole 5 MG TABLET PO SCH (19:33)
[2018-10-17] MEDS: DULoxetine HCL 60 MG CAPSULE.DR PO SCH (19:34)
[2018-10-17] MEDS: ATORVASTATIN CALCIUM 20 MG TABLET PO SCH (19:34)
[2018-10-17] MEDS: NITROFURANTOIN MONOHYD/M-CRYST 100 MG CAPSULE. PO SCH (19:37)
[2018-10-17] MEDS: METHYL SALICYLATE/MENTHOL TOPICAL OINTMENT 29GM TUBE. TP PRN (19:38)
[2018-10-17] MEDS: ENOXAPARIN 40 MG/0.4 ML SYRINGE. SQ SCH (19:38)
[2018-10-17] MEDS: INSULIN GLARGINE 300 UNITS/3 ML INSULN.PEN. SQ SCH (19:41)
--- NOTE | 2018-10-17 20:04 | PN ---
DATE: 10/16/2018 PSYCHIATRIC PROGRESS NOTE This late entry 10/16/2018 covers elements not covered in my initial note. SUBJECTIVE: I met with the patient in the evening. Overall, the patient has done better, more awake, alert, less sedated, somewhat tearful at times. Slept 6-1/2 hours. REVIEW OF SYSTEMS: Positive for impaired ambulation, in wheelchair. No CV, , pulmonary, eye, ENT system symptoms on review. MENTAL STATUS EXAM: Oriented to herself and situation. Speech has some latency, often responses monosyllabic. Abstraction fair, computation impaired, language function intact, attention span short. Mood and affect less depressed, more verbal, somewhat more animated, much less tired as I met with her individually. LABORATORY DATA: Reviewed. No suicidal ideation. IMPRESSION: Major depressive disorder with psychotic features, in partial remission; anxiety disorder, unspecified; cognitive disorder, unspecified. PLAN: No change from initial note. Continue psychotropics mentioned in my initial note. MAN Han BAILEY MD DR: RAYMON/christen JOB#: [id number] / [id number]
--- NOTE | 2018-10-17 23:16 | PDOC ---
Exam Note: José Miguel Note: Please also refer to the separate dictated note~for this date of service dictated separately.~Patient seen individually. Discussed the patient with Nursing staff reviewed the chart.~Reviewed interim history and current functioning. Reviewed vital signs,~Labs/ Radiology~and current medications noted below. Continue current treatment with the changes noted in the dictated addendum note Assessment: Vital Signs: Vital Signs Date Time Temp Pulse Resp B/P (MAP) Pulse Ox O2 Delivery O2 Flow Rate FiO2 10/17/18 15:58 97.5 88 16 123/70 (87) 100 Room Air I&O Intake and Output 10/17/18 07:01 Intake Total 1045 ml Balance 1045 ml Intake Oral 1045 ml Labs: Laboratory Tests Test 10/17/18 07:29 10/17/18 11:54 10/17/18 17:03 10/17/18 19:07 Glucose (Fingerstick) 176 mg/dL (70-99) H 225 mg/dL (70-99) H 223 mg/dL (70-99) H 269 mg/dL (70-99) H Current Medications: Meds: Current Medications Acetaminophen (Tylenol) 650 mg PRN Q6HRS PRN PO PAIN / TEMP Last administered on 10/10/18 09:36; Start 08/08/18 at 20:00 Multi-Ingredient Ointment (Analgesic [place]) 1 frank PRN QID PRN TP MUSCLE PAIN Last administered on 10/17/18 19:38; Start 08/08/18 at 20:00 Al Hydroxide/Mg Hydroxide (Mylanta Plus Xs) 15 ml PRN AFTMEALHC PRN PO DYSPEPSIA; Start 08/08/18 at 20:00 Magnesium Hydroxide (Milk Of Magnesia) 2,400 mg PRN QHS PRN PO CONSTIPATION Last administered on 10/10/18 23:24; Start 08/08/18 at 20:00 Memantine (Namenda) 10 mg BID PO Last administered on 10/17/18 19:34; Start 08/08/18 at 22:00 Quetiapine Fumarate (SEROquel) 25 mg DAILY PO Last administered on 09/05/18at 08 :51; Start 08/09/18 at 09:00; Stop 09/05/18 at 11:58; Status DC Quetiapine Fumarate (SEROquel) 75 mg HS PO Last administered on 09/21/18at 20: 38; Start 08/08/18 at 22:00; Stop 09/22/18 at 18:49; Status DC Venlafaxine HCl (Effexor) 50 mg TID PO Last administered on 08/10/18at 13:40; Start 08/09/18 at 09:00; Stop 08/10/18 at 17:54; Status DC Acetaminophen (Tylenol) 650 mg PRN Q4HRS PRN PO PAIN / TEMP; Start 08/08/18 at 21:30; Status Cancel Levothyroxine Sodium (Synthroid) 100 mcg DAILY06 PO Last administered on 06:08; Start 08/09/18 at 06:00 Amlodipine Besylate (Norvasc) 5 mg DAILY PO Last administered on 10/17/18 07: 47; Start 08/09/18 at 09:00 Aspirin (Children'S Aspirin) 81 mg DAILY PO Last administered on 10/17/18 07: 40; Start 08/09/18 at 09:00 Lisinopril (Prinivil) 20 mg DAILY PO Last administered on 10/17/18 07:48; Start 08/09/18 at 09:00 Vitamin D (Vitamin D3) 50,000 unit WEEKLY PO Last administered on 10/17/18 07: 42; Start 08/15/18 at 09:00 Heparin Sodium (Porcine) (Heparin Sq) 5,000 unit Q8HRS SQ Last administered on 08/27/18at 22:37; Start 08/08/18 at 22:00; Stop 08/27/18 at 23:00; Status DC Levetiracetam (Keppra) 500 mg BID PO Last administered on 10/17/18 19:33; Start 08/08/18 at 22:00 Atorvastatin Calcium (Lipitor) 20 mg QHS PO Last administered on 10/17/18 19: 34; Start 08/09/18 at 21:00 Insulin Human Lispro (HumaLOG) 0-5 UNITS TIDWMEALS SQ Last administered on 09/05at 09:13; Start 08/09/18 at 08:00; Stop 09/05/18 at 14:16; Status DC Dextrose 12.5 gm PRN Q15MIN PRN IV SEE COMMENTS; Start 08/09/18 at 05:45; Stop 09/05/18 at 14:16; Status DC Duloxetine HCl (Cymbalta) 30 mg DAILY PO Last administered on 08/12/18at 08:06 ; Start 08/11/18 at 09:00; Stop 08/12/18 at 09:02; Status DC Duloxetine HCl (Cymbalta) 60 mg DAILY PO Last administered on 09/28/18at 08:28 ; Start 08/13/18 at 09:00; Stop 09/28/18 at 19:49; Status DC Cephalexin HCl (Keflex) 500 mg TID PO Last administered on 08/20/18at 19:28; Start 08/11/18 at 09:00; Stop 08/21/18 at 08:59; Status DC Lactobacillus Rhamnosus (Culturelle) 1 cap BID PO Last administered on at 19:33; Start 08/11/18 at 09:00 Levothyroxine Sodium (Synthroid) 100 mcg 1X ONCE PO Last administered on 08/15at 06:23; Start 08/15/18 at 06:30; Stop 08/15/18 at 06:31; Status DC Olanzapine (ZyPREXA ZYDIS) 10 mg PRN BID PRN PO AGITATION; Start 08/24/18 at 17:45; Stop 09/22/18 at 12:01; Status DC Olanzapine (ZyPREXA IM) 5 mg PRN BID PRN IM AGITATION Last administered on at 17:53; Start 08/24/18 at 17:45; Stop 09/22/18 at 12:01; Status DC Cefpodoxime Proxetil (Vantin) 200 mg BID PO Last administered on 08/27/18at 08: 28; Start 08/25/18 at 17:30; Stop 08/27/18 at 17:27; Status DC Gabapentin (Neurontin) 100 mg BID PO Last administered on 09/13/18at 09:05; Start 08/25/18 at 21:00; Stop 09/13/18 at 16:30; Status DC Quetiapine Fumarate (SEROquel) 12.5 mg DAILY16 PO Last administered on at 16:29; Start 08/27/18 at 16:00; Stop 09/16/18 at 16:52; Status DC Heparin Sodium (Porcine) (Heparin Sodium) 5,000 unit Q8HRS SQ Last administered on 09/25/18at 13:45; Start 08/28/18 at 06:00; Stop 09/25/18 at 18 :16; Status DC Ciprofloxacin (Cipro) 500 mg BID PO Last administered on 09/06/18at 08:09; Start 08/27/18 at 21:00; Stop 09/06/18 at 20:59; Status DC Insulin Human Lispro (HumaLOG) 0-9 UNITS TIDWMEALS SQ Last administered on 10/17 17:39; Start 09/05/18 at 17:00 Dextrose 12.5 gm PRN Q15MIN PRN IV SEE COMMENTS; Start 09/05/18 at 14:15 Gabapentin (Neurontin) 200 mg TID PO Last administered on 10/17/18 19:34; Start 09/13/18 at 21:00 Bupropion HCl (Wellbutrin Xl) 150 mg DAILY PO Last administered on 10/17/18 07 :42; Start 09/17/18 at 09:00 Insulin Glargine (Lantus) 15 units QHS SQ Last administered on 10/17/18 19:41 ; Start 09/19/18 at 21:00 Olanzapine (ZyPREXA ZYDIS) 2.5 mg PRN Q2HR PRN PO PSYCHOSIS Last administered on 10/13/18 09:00; Start 09/22/18 at 12:00 Quetiapine Fumarate (SEROquel) 50 mg HS PO Last administered on 09/27/18at 21: 28; Start 09/22/18 at 21:00; Stop 09/28/18 at 19:49; Status DC Enoxaparin Sodium (Lovenox 40mg Syringe) 40 mg Q24H SQ Last administered on 19:38; Start 09/25/18 at 21:00 Duloxetine HCl (Cymbalta) 60 mg HS PO Last administered on 10/17/18 19:34; Start 09/29/18 at 21:00 Quetiapine Fumarate (SEROquel) 25 mg HS PO Last administered on 09/29/18at 20: 59; Start 09/28/18 at 21:00; Stop 09/30/18 at 17:23; Status DC Aripiprazole (Abilify) 2.5 mg QHS PO Last administered on 10/17/18at 19:33; Start 09/30/18 at 21:00 Guaifenesin (Robitussin Dm) 10 ml PRN Q6HRS PRN PO COUGH Last administered on at 19:11; Start 10/02/18 at 15:00 Nitrofurantoin Macrocrystals (Macrobid) 100 mg QHS PO Last administered on 10/17at 19:37; Start 10/03/18 at 21:00 Cetirizine HCl (ZyrTEC) 10 mg DAILY PO Last administered on 10/17/18at 07:42; Start 10/12/18 at 09:00 Active Scripts Active Reported Seroquel (Quetiapine Fumarate) 25 Mg Tablet 12.5 Mg PO DAILY16 Olanzapine 10 Mg Tablet 10 Mg PO PRN BID PRN Olanzapine Inj (Olanzapine) 10 Mg Vial 5 Mg IM PRN BID PRN Analgesic [place] (Methyl Salicylate/Menthol) 28 Gm Oint...g. 1 Frank TP PRN QID PRN Milk Of Magnesia (Magnesium Hydroxide) 2,400 Mg/10 Ml Oral.susp 2,400 Mg PO PRN QHS PRN Advanced Antacid Liquid (Mag Hydrox/Al Hydrox/Simeth) 355 Ml Oral.susp 15 Ml PO PRN AFTMEALHC PRN Culturelle (Lactobacillus Rhamnosus Gg) 1 Each Cap.sprink 1 Cap PO BID Humalog (Insulin Lispro) 100 Unit/1 Ml Cartridge 0-5 Unit SQ TIDWMEALS Gabapentin 100 Mg Capsule 100 Mg PO BID Cymbalta (Duloxetine Hcl) 60 Mg Capsule.dr 60 Mg PO DAILY Ciprofloxacin Hcl 500 Mg Tablet 500 Mg PO BID Venlafaxine Hcl Er (Venlafaxine Hcl) 150 Mg Tab.er.24 150 Mg PO DAILYWBKFT Quetiapine Fumarate 25 Mg Tablet 25 Mg PO DAILY Seroquel (Quetiapine Fumarate) 25 Mg Tablet 75 Mg PO QHS Namenda (Memantine Hcl) 10 Mg Tablet 10 Mg PO BID Lovastatin 40 Mg Tablet 80 Mg PO QHS Levothyroxine Sodium 100 Mcg Tablet 100 Mcg PO DAILYAC Keppra (Levetiracetam) 500 Mg Tablet 500 Mg PO BID Heparin 5,000 Unit/5 ml-Ns (Heparin Sod,Porcine/0.9 % NaCl) 5,000 Unit/5 Ml Syringe 5,000 Unit IM Q8HRS Vitamin D2 (Ergocalciferol (Vitamin D2)) 50,000 Unit Capsule 50,000 Unit PO WEEKLY Benazepril Hcl 20 Mg Tablet 20 Mg PO DAILY Aspirin 81 Mg Tab.chew 81 Mg PO DAILY Amlodipine Besylate 5 Mg Tablet 5 Mg PO DAILY Tylenol (Acetaminophen) 325 Mg Tablet 650 Mg PO PRN Q4HRS PRN I have reviewed the current psychotropics carefully including drug interactions. Risk benefit ratio favors no change other than as noted in my dictated progress note. Diagnosis: Problems: (1) Anxiety disorder (2) Mild cognitive disorder (3) Major depressive disorder, recurrent episode (4) Impulse control disorder ANTONIA BAILEY MD Oct 17, 2018 23:16
[2018-10-18 05:52] VITALS: BP 153/77
[2018-10-18] MEDS: LEVOTHYROXINE 100 MCG TABLET PO SCH (05:54)
[2018-10-18 07:41] LABS: BASO % 1 % (0-3); EOS # 0.1 x10^3/uL (0.0-0.7); EOS % 2 % (0-3); HEMATOCRIT 35.6 % (36.0-47.0); HEMOGLOBIN 12.3 g/dL (12.0-15.5); LYMPH # 0.9 x10^3/uL (1.0-4.8); LYMPH % 22 % (24-48); MEAN CORPUSCULAR HEMOGLOBIN 32 pg (25-35); MEAN CORPUSCULAR HGB CONC 35 g/dL (31-37); MEAN CORPUSCULAR VOLUME 93 fL (79-100); MONO # 0.3 x10^3/uL (0.0-1.1); MONO % 8 % (0-9); NEUT # 2.8 x10^3uL (1.8-7.7); NEUT % 68 % (31-73); PLATELET COUNT 205 x10^3/uL (140-400); RED BLOOD COUNT 3.84 x10^6/uL (3.50-5.40); RED CELL DISTRIBUTION WIDTH 14.3 % (11.5-14.5); WHITE BLOOD COUNT 4.2 x10^3/uL (4.0-11.0)
[2018-10-18 07:57] LABS: ALBUMIN 3.3 g/dL (3.4-5.0); ALBUMIN/GLOBULIN RATIO 0.8 (1.0-1.7); CALCIUM 9.1 mg/dL (8.5-10.1); CREATININE 0.7 mg/dL (0.6-1.0); GFR 81.6; TOTAL BILIRUBIN 0.4 mg/dL (0.2-1.0); TOTAL PROTEIN 7.6 g/dL (6.4-8.2)
[2018-10-18] MEDS: INSULIN LISPRO 300 UNITS/3 ML INSULN.PEN. SQ SCH ×3 (08:00→17:15)
[2018-10-18] MEDS: MEMANTINE 10 MG TABLET. PO SCH ×2 (08:20→20:11)
[2018-10-18] MEDS: GABAPENTIN 100 MG CAPSULE. PO SCH ×3 (08:20→20:12)
[2018-10-18] MEDS: buPROPion XL 150 MG TAB.ER.24H PO SCH (08:20)
[2018-10-18] MEDS: CETIRIZINE HCL 10 MG TABLET PO SCH (08:20)
[2018-10-18] MEDS: LACTOBACILLUS RHAMNOSUS GG 1 CAPSULE. PO SCH ×2 (08:20→20:11)
[2018-10-18] MEDS: levETIRAcetam 500 MG TABLET PO SCH ×2 (08:20→20:11)
[2018-10-18] MEDS: amLODIPine BESYLATE 5 MG TABLET PO SCH (08:20)
[2018-10-18] MEDS: ASPIRIN 81 MG TAB.CHEW PO SCH (08:21)
[2018-10-18] MEDS: LISINOPRIL 20 MG TABLET PO SCH (08:21)
[2018-10-18] MEDS: ACETAMINOPHEN 325 MG TABLET PO PRN (10:56)
[2018-10-18 16:23] VITALS: BP 100/62
[2018-10-18] MEDS: ARIPiprazole 5 MG TABLET PO SCH (20:11)
[2018-10-18] MEDS: DULoxetine HCL 60 MG CAPSULE.DR PO SCH (20:11)
[2018-10-18] MEDS: ATORVASTATIN CALCIUM 20 MG TABLET PO SCH (20:11)
[2018-10-18] MEDS: NITROFURANTOIN MONOHYD/M-CRYST 100 MG CAPSULE. PO SCH (20:11)
[2018-10-18] MEDS: INSULIN GLARGINE 300 UNITS/3 ML INSULN.PEN. SQ SCH (20:12)
[2018-10-18] MEDS: ENOXAPARIN 40 MG/0.4 ML SYRINGE. SQ SCH (20:13)
[2018-10-18] MEDS: DOCUSATE SODIUM 100 MG CAPSULE PO SCH (20:16)
--- NOTE | 2018-10-18 20:17 | PN ---
DATE: 10/17/2018 PSYCHIATRIC PROGRESS NOTE This late entry of 10/17/2018 covers elements not covered in my initial note. SUBJECTIVE: I met with the patient in the evening and staffed at a treatment team meeting with the entire team in the morning. Review of the patient's history, progress with social service staff about placement. She is sleeping well. REVIEW OF SYSTEMS: Ambulation impaired, in wheelchair. No CV, , pulmonary, eye system symptoms on review. She is much less sedated during the day. MENTAL STATUS EXAM: Oriented to herself and situation. Speech has some latency, coherent, low in volume, but more animated, more awake as I met with her, abstraction fair, computation impaired, language function intact, attention span short. Mood and affect are less withdrawn. LABORATORY DATA: Reviewed. IMPRESSION: Major depressive disorder with psychotic features in partial remission; cognitive disorder, unspecified. PLAN: No change from initial note. ANTONIA BAILEY MD DR: RAYMON/christen JOB#: [id number] / [id number]
--- NOTE | 2018-10-18 23:59 | PDOC ---
Exam Note: José Miguel Note: Please also refer to the separate dictated note~for this date of service dictated separately.~Patient seen individually. Discussed the patient with Nursing staff reviewed the chart.~Reviewed interim history and current functioning. Reviewed vital signs,~Labs/ Radiology~and current medications noted below. Continue current treatment with the changes noted in the dictated addendum note Assessment: Vital Signs: Vital Signs Date Time Temp Pulse Resp B/P (MAP) Pulse Ox O2 Delivery O2 Flow Rate FiO2 10/18/18 16:23 97.8 72 18 100/62 (75) 98 Room Air I&O Intake and Output 10/18/18 07:01 Intake Total 1440 ml Balance 1440 ml Intake Oral 1440 ml Labs: Laboratory Tests Test 10/18/18 07:12 10/18/18 07:30 10/18/18 11:36 10/18/18 16:42 Glucose (Fingerstick) 134 mg/dL (70-99) H 166 mg/dL (70-99) H 152 mg/dL (70-99) H White Blood Count 4.2 x10^3/uL (4.0-11.0) Red Blood Count 3.84 x10^6/uL (3.50-5.40) Hemoglobin 12.3 g/dL (12.0-15.5) Hematocrit 35.6 % (36.0-47.0) L Mean Corpuscular Volume 93 fL (79-100) Mean Corpuscular Hemoglobin 32 pg (25-35) Mean Corpuscular Hemoglobin Concent 35 g/dL (31-37) Red Cell Distribution Width 14.3 % (11.5-14.5) Platelet Count 205 x10^3/uL (140-400) Neutrophils (%) (Auto) 68 % (31-73) Lymphocytes (%) (Auto) 22 % (24-48) L Monocytes (%) (Auto) 8 % (0-9) Eosinophils (%) (Auto) 2 % (0-3) Basophils (%) (Auto) 1 % (0-3) Neutrophils # (Auto) 2.8 x10^3uL (1.8-7.7) Lymphocytes # (Auto) 0.9 x10^3/uL (1.0-4.8) L Monocytes # (Auto) 0.3 x10^3/uL (0.0-1.1) Eosinophils # (Auto) 0.1 x10^3/uL (0.0-0.7) Basophils # (Auto) 0.0 x10^3/uL (0.0-0.2) Sodium Level 138 mmol/L (136-145) Potassium Level 4.0 mmol/L (3.5-5.1) Chloride Level 99 mmol/L (98-107) Carbon Dioxide Level 29 mmol/L (21-32) Anion Gap 10 (6-14) Blood Urea Nitrogen 14 mg/dL (7-20) Creatinine 0.7 mg/dL (0.6-1.0) Estimated GFR (Cockcroft-Gault) 81.6 BUN/Creatinine Ratio 20 (6-20) Glucose Level 135 mg/dL (70-99) H Calcium Level 9.1 mg/dL (8.5-10.1) Total Bilirubin 0.4 mg/dL (0.2-1.0) Aspartate Amino Transferase (AST) 15 U/L (15-37) Alanine Aminotransferase (ALT) 20 U/L (14-59) Alkaline Phosphatase 111 U/L (46-116) Total Protein 7.6 g/dL (6.4-8.2) Albumin 3.3 g/dL (3.4-5.0) L Albumin/Globulin Ratio 0.8 (1.0-1.7) L Test 10/18/18 19:35 Glucose (Fingerstick) 199 mg/dL (70-99) H Current Medications: Meds: Current Medications Acetaminophen (Tylenol) 650 mg PRN Q6HRS PRN PO PAIN / TEMP Last administered on 10/18/18 10:56; Start 08/08/18 at 20:00 Multi-Ingredient Ointment (Analgesic [place]) 1 frank PRN QID PRN TP MUSCLE PAIN Last administered on 10/17/18 19:38; Start 08/08/18 at 20:00 Al Hydroxide/Mg Hydroxide (Mylanta Plus Xs) 15 ml PRN AFTMEALHC PRN PO DYSPEPSIA; Start 08/08/18 at 20:00 Magnesium Hydroxide (Milk Of Magnesia) 2,400 mg PRN QHS PRN PO CONSTIPATION Last administered on 10/10/18 23:24; Start 08/08/18 at 20:00 Memantine (Namenda) 10 mg BID PO Last administered on 10/18/18 20:11; Start 08/08/18 at 22:00 Quetiapine Fumarate (SEROquel) 25 mg DAILY PO Last administered on 09/05/18at 08 :51; Start 08/09/18 at 09:00; Stop 09/05/18 at 11:58; Status DC Quetiapine Fumarate (SEROquel) 75 mg HS PO Last administered on 09/21/18at 20: 38; Start 08/08/18 at 22:00; Stop 09/22/18 at 18:49; Status DC Venlafaxine HCl (Effexor) 50 mg TID PO Last administered on 08/10/18at 13:40; Start 08/09/18 at 09:00; Stop 08/10/18 at 17:54; Status DC Acetaminophen (Tylenol) 650 mg PRN Q4HRS PRN PO PAIN / TEMP; Start 08/08/18 at 21:30; Status Cancel Levothyroxine Sodium (Synthroid) 100 mcg DAILY06 PO Last administered on 05:54; Start 08/09/18 at 06:00 Amlodipine Besylate (Norvasc) 5 mg DAILY PO Last administered on 10/18/18 08: 20; Start 08/09/18 at 09:00 Aspirin (Children'S Aspirin) 81 mg DAILY PO Last administered on 10/18/18 08: 21; Start 08/09/18 at 09:00 Lisinopril (Prinivil) 20 mg DAILY PO Last administered on 10/18/18 08:21; Start 08/09/18 at 09:00 Vitamin D (Vitamin D3) 50,000 unit WEEKLY PO Last administered on 10/17/18 07: 42; Start 08/15/18 at 09:00 Heparin Sodium (Porcine) (Heparin Sq) 5,000 unit Q8HRS SQ Last administered on 08/27/18at 22:37; Start 08/08/18 at 22:00; Stop 08/27/18 at 23:00; Status DC Levetiracetam (Keppra) 500 mg BID PO Last administered on 10/18/18 20:11; Start 08/08/18 at 22:00 Atorvastatin Calcium (Lipitor) 20 mg QHS PO Last administered on 10/18/18at 20: 11; Start 08/09/18 at 21:00 Insulin Human Lispro (HumaLOG) 0-5 UNITS TIDWMEALS SQ Last administered on 09/05at 09:13; Start 08/09/18 at 08:00; Stop 09/05/18 at 14:16; Status DC Dextrose 12.5 gm PRN Q15MIN PRN IV SEE COMMENTS; Start 08/09/18 at 05:45; Stop 09/05/18 at 14:16; Status DC Duloxetine HCl (Cymbalta) 30 mg DAILY PO Last administered on 08/12/18at 08:06 ; Start 08/11/18 at 09:00; Stop 08/12/18 at 09:02; Status DC Duloxetine HCl (Cymbalta) 60 mg DAILY PO Last administered on 09/28/18at 08:28 ; Start 08/13/18 at 09:00; Stop 09/28/18 at 19:49; Status DC Cephalexin HCl (Keflex) 500 mg TID PO Last administered on 08/20/18at 19:28; Start 08/11/18 at 09:00; Stop 08/21/18 at 08:59; Status DC Lactobacillus Rhamnosus (Culturelle) 1 cap BID PO Last administered on at 20:11; Start 08/11/18 at 09:00 Levothyroxine Sodium (Synthroid) 100 mcg 1X ONCE PO Last administered on 08/15at 06:23; Start 08/15/18 at 06:30; Stop 08/15/18 at 06:31; Status DC Olanzapine (ZyPREXA ZYDIS) 10 mg PRN BID PRN PO AGITATION; Start 08/24/18 at 17:45; Stop 09/22/18 at 12:01; Status DC Olanzapine (ZyPREXA IM) 5 mg PRN BID PRN IM AGITATION Last administered on at 17:53; Start 08/24/18 at 17:45; Stop 09/22/18 at 12:01; Status DC Cefpodoxime Proxetil (Vantin) 200 mg BID PO Last administered on 08/27/18at 08: 28; Start 08/25/18 at 17:30; Stop 08/27/18 at 17:27; Status DC Gabapentin (Neurontin) 100 mg BID PO Last administered on 09/13/18at 09:05; Start 08/25/18 at 21:00; Stop 09/13/18 at 16:30; Status DC Quetiapine Fumarate (SEROquel) 12.5 mg DAILY16 PO Last administered on at 16:29; Start 08/27/18 at 16:00; Stop 09/16/18 at 16:52; Status DC Heparin Sodium (Porcine) (Heparin Sodium) 5,000 unit Q8HRS SQ Last administered on 09/25/18at 13:45; Start 08/28/18 at 06:00; Stop 09/25/18 at 18 :16; Status DC Ciprofloxacin (Cipro) 500 mg BID PO Last administered on 09/06/18at 08:09; Start 08/27/18 at 21:00; Stop 09/06/18 at 20:59; Status DC Insulin Human Lispro (HumaLOG) 0-9 UNITS TIDWMEALS SQ Last administered on 10/18at 17:15; Start 09/05/18 at 17:00 Dextrose 12.5 gm PRN Q15MIN PRN IV SEE COMMENTS; Start 09/05/18 at 14:15 Gabapentin (Neurontin) 200 mg TID PO Last administered on 10/18/18at 20:12; Start 09/13/18 at 21:00 Bupropion HCl (Wellbutrin Xl) 150 mg DAILY PO Last administered on 10/18/18 08 :20; Start 09/17/18 at 09:00 Insulin Glargine (Lantus) 15 units QHS SQ Last administered on 10/18/18at 20:12 ; Start 09/19/18 at 21:00 Olanzapine (ZyPREXA ZYDIS) 2.5 mg PRN Q2HR PRN PO PSYCHOSIS Last administered on 10/13/18 09:00; Start 09/22/18 at 12:00 Quetiapine Fumarate (SEROquel) 50 mg HS PO Last administered on 09/27/18at 21: 28; Start 09/22/18 at 21:00; Stop 09/28/18 at 19:49; Status DC Enoxaparin Sodium (Lovenox 40mg Syringe) 40 mg Q24H SQ Last administered on 20:13; Start 09/25/18 at 21:00 Duloxetine HCl (Cymbalta) 60 mg HS PO Last administered on 10/18/18 20:11; Start 09/29/18 at 21:00 Quetiapine Fumarate (SEROquel) 25 mg HS PO Last administered on 09/29/18at 20: 59; Start 09/28/18 at 21:00; Stop 09/30/18 at 17:23; Status DC Aripiprazole (Abilify) 2.5 mg QHS PO Last administered on 10/18/18 20:11; Start 09/30/18 at 21:00 Guaifenesin (Robitussin Dm) 10 ml PRN Q6HRS PRN PO COUGH Last administered on 19:11; Start 10/02/18 at 15:00 Nitrofurantoin Macrocrystals (Macrobid) 100 mg QHS PO Last administered on 10/18 20:11; Start 10/03/18 at 21:00 Cetirizine HCl (ZyrTEC) 10 mg DAILY PO Last administered on 10/18/18at 08:20; Start 10/12/18 at 09:00 Docusate Sodium (Colace) 100 mg BID PO Last administered on 10/18/18 20:16; Start 10/18/18 at 21:00 Polyethylene Glycol (miraLAX) 17 gm DAILY PO ; Start 10/19/18 at 09:00 Active Scripts Active Reported Seroquel (Quetiapine Fumarate) 25 Mg Tablet 12.5 Mg PO DAILY16 Olanzapine 10 Mg Tablet 10 Mg PO PRN BID PRN Olanzapine Inj (Olanzapine) 10 Mg Vial 5 Mg IM PRN BID PRN Analgesic [place] (Methyl Salicylate/Menthol) 28 Gm Oint...g. 1 Frank TP PRN QID PRN Milk Of Magnesia (Magnesium Hydroxide) 2,400 Mg/10 Ml Oral.susp 2,400 Mg PO PRN QHS PRN Advanced Antacid Liquid (Mag Hydrox/Al Hydrox/Simeth) 355 Ml Oral.susp 15 Ml PO PRN AFTMEALHC PRN Culturelle (Lactobacillus Rhamnosus Gg) 1 Each Cap.sprink 1 Cap PO BID Humalog (Insulin Lispro) 100 Unit/1 Ml Cartridge 0-5 Unit SQ TIDWMEALS Gabapentin 100 Mg Capsule 100 Mg PO BID Cymbalta (Duloxetine Hcl) 60 Mg Capsule.dr 60 Mg PO DAILY Ciprofloxacin Hcl 500 Mg Tablet 500 Mg PO BID Venlafaxine Hcl Er (Venlafaxine Hcl) 150 Mg Tab.er.24 150 Mg PO DAILYWBKFT Quetiapine Fumarate 25 Mg Tablet 25 Mg PO DAILY Seroquel (Quetiapine Fumarate) 25 Mg Tablet 75 Mg PO QHS Namenda (Memantine Hcl) 10 Mg Tablet 10 Mg PO BID Lovastatin 40 Mg Tablet 80 Mg PO QHS Levothyroxine Sodium 100 Mcg Tablet 100 Mcg PO DAILYAC Keppra (Levetiracetam) 500 Mg Tablet 500 Mg PO BID Heparin 5,000 Unit/5 ml-Ns (Heparin Sod,Porcine/0.9 % NaCl) 5,000 Unit/5 Ml Syringe 5,000 Unit IM Q8HRS Vitamin D2 (Ergocalciferol (Vitamin D2)) 50,000 Unit Capsule 50,000 Unit PO WEEKLY Benazepril Hcl 20 Mg Tablet 20 Mg PO DAILY Aspirin 81 Mg Tab.chew 81 Mg PO DAILY Amlodipine Besylate 5 Mg Tablet 5 Mg PO DAILY Tylenol (Acetaminophen) 325 Mg Tablet 650 Mg PO PRN Q4HRS PRN I have reviewed the current psychotropics carefully including drug interactions. Risk benefit ratio favors no change other than as noted in my dictated progress note. Diagnosis: Problems: (1) Anxiety disorder (2) Mild cognitive disorder (3) Major depressive disorder, recurrent episode (4) Impulse control disorder ANTONIA BAILEY MD Oct 18, 2018 23:59
[2018-10-19] MEDS: LEVOTHYROXINE 100 MCG TABLET PO SCH (05:29)
[2018-10-19 05:33] VITALS: BP 134/73
[2018-10-19] MEDS: ACETAMINOPHEN 325 MG TABLET PO PRN (05:44)
[2018-10-19] MEDS: LACTOBACILLUS RHAMNOSUS GG 1 CAPSULE. PO SCH ×2 (09:31→20:47)
[2018-10-19] MEDS: levETIRAcetam 500 MG TABLET PO SCH ×2 (09:31→20:47)
[2018-10-19] MEDS: ASPIRIN 81 MG TAB.CHEW PO SCH (09:31)
[2018-10-19] MEDS: INSULIN LISPRO 300 UNITS/3 ML INSULN.PEN. SQ SCH ×3 (09:31→17:19)
[2018-10-19] MEDS: DOCUSATE SODIUM 100 MG CAPSULE PO SCH ×2 (09:31→20:47)
[2018-10-19] MEDS: MEMANTINE 10 MG TABLET. PO SCH ×2 (09:33→20:47)
[2018-10-19] MEDS: GABAPENTIN 100 MG CAPSULE. PO SCH ×3 (09:33→20:47)
[2018-10-19] MEDS: POLYETHYLENE GLYCOL 3350 17 GM PACKET. PO SCH (09:33)
[2018-10-19] MEDS: amLODIPine BESYLATE 5 MG TABLET PO SCH (09:34)
[2018-10-19] MEDS: buPROPion XL 150 MG TAB.ER.24H PO SCH (09:35)
[2018-10-19] MEDS: CETIRIZINE HCL 10 MG TABLET PO SCH (09:35)
[2018-10-19] MEDS: LISINOPRIL 20 MG TABLET PO SCH (09:35)
[2018-10-19 15:39] VITALS: BP 97/61
[2018-10-19] MEDS: NYSTATIN 100,000 UNITS/ML ORAL SUSPENSION 60ML BOTTLE. SWSW SCH ×2 (17:33→20:48)
[2018-10-19] MEDS: ARIPiprazole 5 MG TABLET PO SCH (20:47)
[2018-10-19] MEDS: NITROFURANTOIN MONOHYD/M-CRYST 100 MG CAPSULE. PO SCH (20:47)
[2018-10-19] MEDS: DULoxetine HCL 60 MG CAPSULE.DR PO SCH (20:47)
[2018-10-19] MEDS: ATORVASTATIN CALCIUM 20 MG TABLET PO SCH (20:47)
[2018-10-19] MEDS: ENOXAPARIN 40 MG/0.4 ML SYRINGE. SQ SCH (20:49)
[2018-10-19] MEDS: INSULIN GLARGINE 300 UNITS/3 ML INSULN.PEN. SQ SCH (20:50)
[2018-10-20] MEDS: LEVOTHYROXINE 100 MCG TABLET PO SCH (05:19)
[2018-10-20] MEDS: ACETAMINOPHEN 325 MG TABLET PO PRN (05:39)
[2018-10-20 06:01] VITALS: BP 103/68
[2018-10-20] MEDS: INSULIN LISPRO 300 UNITS/3 ML INSULN.PEN. SQ SCH ×3 (08:21→17:21)
[2018-10-20] MEDS: DOCUSATE SODIUM 100 MG CAPSULE PO SCH ×2 (08:23→20:03)
[2018-10-20] MEDS: LACTOBACILLUS RHAMNOSUS GG 1 CAPSULE. PO SCH ×2 (08:23→20:03)
[2018-10-20] MEDS: ASPIRIN 81 MG TAB.CHEW PO SCH (08:23)
[2018-10-20] MEDS: POLYETHYLENE GLYCOL 3350 17 GM PACKET. PO SCH (08:24)
[2018-10-20] MEDS: levETIRAcetam 500 MG TABLET PO SCH ×2 (08:24→20:04)
[2018-10-20] MEDS: MEMANTINE 10 MG TABLET. PO SCH ×2 (08:24→20:04)
[2018-10-20] MEDS: GABAPENTIN 100 MG CAPSULE. PO SCH ×3 (08:25→20:03)
[2018-10-20] MEDS: LISINOPRIL 20 MG TABLET PO SCH (08:26)
[2018-10-20] MEDS: buPROPion XL 150 MG TAB.ER.24H PO SCH (08:26)
[2018-10-20] MEDS: amLODIPine BESYLATE 5 MG TABLET PO SCH (08:26)
[2018-10-20] MEDS: NYSTATIN 100,000 UNITS/ML ORAL SUSPENSION 60ML BOTTLE. SWSW SCH ×4 (08:27→20:12)
[2018-10-20] MEDS: CETIRIZINE HCL 10 MG TABLET PO SCH (08:27)
[2018-10-20 15:43] VITALS: BP 107/60
[2018-10-20] MEDS: NITROFURANTOIN MONOHYD/M-CRYST 100 MG CAPSULE. PO SCH (20:03)
[2018-10-20] MEDS: ARIPiprazole 5 MG TABLET PO SCH (20:03)
[2018-10-20] MEDS: ATORVASTATIN CALCIUM 20 MG TABLET PO SCH (20:04)
[2018-10-20] MEDS: DULoxetine HCL 60 MG CAPSULE.DR PO SCH (20:04)
[2018-10-20] MEDS: ENOXAPARIN 40 MG/0.4 ML SYRINGE. SQ SCH (20:08)
[2018-10-20] MEDS: INSULIN GLARGINE 300 UNITS/3 ML INSULN.PEN. SQ SCH (20:10)
--- NOTE | 2018-10-20 22:39 | PDOC ---
Exam Note: José Miguel Note: Please also refer to the separate dictated note~for this date of service dictated separately. Discussed the patient with Nursing staff reviewed the chart.~Reviewed interim history and current functioning. Reviewed vital signs,~ Labs/ Radiology~and current medications noted below. Continue current treatment with the changes noted in the dictated addendum note Assessment: Vital Signs: Vital Signs Date Time Temp Pulse Resp B/P (MAP) Pulse Ox O2 Delivery O2 Flow Rate FiO2 10/20/18 15:43 97.4 85 19 107/60 (76) 100 10/18/18 16:23 Room Air I&O Intake and Output 10/20/18 07:01 Intake Total 960 ml Balance 960 ml Intake Oral 960 ml # Voids 1 # Bowel Movements 2 Labs: Laboratory Tests Test 10/20/18 07:05 10/20/18 11:39 10/20/18 16:29 10/20/18 19:45 Glucose (Fingerstick) 148 mg/dL (70-99) H 209 mg/dL (70-99) H 192 mg/dL (70-99) H 178 mg/dL (70-99) H Current Medications: Meds: Current Medications Acetaminophen (Tylenol) 650 mg PRN Q6HRS PRN PO PAIN / TEMP Last administered on 10/20/18 05:39; Start 08/08/18 at 20:00 Multi-Ingredient Ointment (Analgesic [place]) 1 frank PRN QID PRN TP MUSCLE PAIN Last administered on 10/17/18at 19:38; Start 08/08/18 at 20:00 Al Hydroxide/Mg Hydroxide (Mylanta Plus Xs) 15 ml PRN AFTMEALHC PRN PO DYSPEPSIA; Start 08/08/18 at 20:00 Magnesium Hydroxide (Milk Of Magnesia) 2,400 mg PRN QHS PRN PO CONSTIPATION Last administered on 10/10/18 23:24; Start 08/08/18 at 20:00 Memantine (Namenda) 10 mg BID PO Last administered on 10/20/18at 20:04; Start 08/08/18 at 22:00 Quetiapine Fumarate (SEROquel) 25 mg DAILY PO Last administered on 09/05/18at 08 :51; Start 08/09/18 at 09:00; Stop 09/05/18 at 11:58; Status DC Quetiapine Fumarate (SEROquel) 75 mg HS PO Last administered on 09/21/18at 20: 38; Start 08/08/18 at 22:00; Stop 09/22/18 at 18:49; Status DC Venlafaxine HCl (Effexor) 50 mg TID PO Last administered on 08/10/18at 13:40; Start 08/09/18 at 09:00; Stop 08/10/18 at 17:54; Status DC Acetaminophen (Tylenol) 650 mg PRN Q4HRS PRN PO PAIN / TEMP; Start 08/08/18 at 21:30; Status Cancel Levothyroxine Sodium (Synthroid) 100 mcg DAILY06 PO Last administered on 05:19; Start 08/09/18 at 06:00 Amlodipine Besylate (Norvasc) 5 mg DAILY PO Last administered on 10/20/18 08: 26; Start 08/09/18 at 09:00 Aspirin (Children'S Aspirin) 81 mg DAILY PO Last administered on 10/20/18 08: 23; Start 08/09/18 at 09:00 Lisinopril (Prinivil) 20 mg DAILY PO Last administered on 10/19/18 09:35; Start 08/09/18 at 09:00 Vitamin D (Vitamin D3) 50,000 unit WEEKLY PO Last administered on 10/17/18 07: 42; Start 08/15/18 at 09:00 Heparin Sodium (Porcine) (Heparin Sq) 5,000 unit Q8HRS SQ Last administered on 08/27/18at 22:37; Start 08/08/18 at 22:00; Stop 08/27/18 at 23:00; Status DC Levetiracetam (Keppra) 500 mg BID PO Last administered on 10/20/18 20:04; Start 08/08/18 at 22:00 Atorvastatin Calcium (Lipitor) 20 mg QHS PO Last administered on 10/20/18 20: 04; Start 08/09/18 at 21:00 Insulin Human Lispro (HumaLOG) 0-5 UNITS TIDWMEALS SQ Last administered on 09/05at 09:13; Start 08/09/18 at 08:00; Stop 09/05/18 at 14:16; Status DC Dextrose 12.5 gm PRN Q15MIN PRN IV SEE COMMENTS; Start 08/09/18 at 05:45; Stop 09/05/18 at 14:16; Status DC Duloxetine HCl (Cymbalta) 30 mg DAILY PO Last administered on 08/12/18at 08:06 ; Start 08/11/18 at 09:00; Stop 08/12/18 at 09:02; Status DC Duloxetine HCl (Cymbalta) 60 mg DAILY PO Last administered on 09/28/18at 08:28 ; Start 08/13/18 at 09:00; Stop 09/28/18 at 19:49; Status DC Cephalexin HCl (Keflex) 500 mg TID PO Last administered on 08/20/18at 19:28; Start 08/11/18 at 09:00; Stop 08/21/18 at 08:59; Status DC Lactobacillus Rhamnosus (Culturelle) 1 cap BID PO Last administered on at 20:03; Start 08/11/18 at 09:00 Levothyroxine Sodium (Synthroid) 100 mcg 1X ONCE PO Last administered on 08/15at 06:23; Start 08/15/18 at 06:30; Stop 08/15/18 at 06:31; Status DC Olanzapine (ZyPREXA ZYDIS) 10 mg PRN BID PRN PO AGITATION; Start 08/24/18 at 17:45; Stop 09/22/18 at 12:01; Status DC Olanzapine (ZyPREXA IM) 5 mg PRN BID PRN IM AGITATION Last administered on at 17:53; Start 08/24/18 at 17:45; Stop 09/22/18 at 12:01; Status DC Cefpodoxime Proxetil (Vantin) 200 mg BID PO Last administered on 08/27/18at 08: 28; Start 08/25/18 at 17:30; Stop 08/27/18 at 17:27; Status DC Gabapentin (Neurontin) 100 mg BID PO Last administered on 09/13/18at 09:05; Start 08/25/18 at 21:00; Stop 09/13/18 at 16:30; Status DC Quetiapine Fumarate (SEROquel) 12.5 mg DAILY16 PO Last administered on at 16:29; Start 08/27/18 at 16:00; Stop 09/16/18 at 16:52; Status DC Heparin Sodium (Porcine) (Heparin Sodium) 5,000 unit Q8HRS SQ Last administered on 09/25/18at 13:45; Start 08/28/18 at 06:00; Stop 09/25/18 at 18 :16; Status DC Ciprofloxacin (Cipro) 500 mg BID PO Last administered on 09/06/18at 08:09; Start 08/27/18 at 21:00; Stop 09/06/18 at 20:59; Status DC Insulin Human Lispro (HumaLOG) 0-9 UNITS TIDWMEALS SQ Last administered on 10/20 17:21; Start 09/05/18 at 17:00 Dextrose 12.5 gm PRN Q15MIN PRN IV SEE COMMENTS; Start 09/05/18 at 14:15 Gabapentin (Neurontin) 200 mg TID PO Last administered on 10/20/18 20:03; Start 09/13/18 at 21:00 Bupropion HCl (Wellbutrin Xl) 150 mg DAILY PO Last administered on 10/20/18 08 :26; Start 09/17/18 at 09:00 Insulin Glargine (Lantus) 15 units QHS SQ Last administered on 10/20/18 20:10 ; Start 09/19/18 at 21:00 Olanzapine (ZyPREXA ZYDIS) 2.5 mg PRN Q2HR PRN PO PSYCHOSIS Last administered on 10/13/18 09:00; Start 09/22/18 at 12:00 Quetiapine Fumarate (SEROquel) 50 mg HS PO Last administered on 09/27/18at 21: 28; Start 09/22/18 at 21:00; Stop 09/28/18 at 19:49; Status DC Enoxaparin Sodium (Lovenox 40mg Syringe) 40 mg Q24H SQ Last administered on 20:08; Start 09/25/18 at 21:00 Duloxetine HCl (Cymbalta) 60 mg HS PO Last administered on 10/20/18 20:04; Start 09/29/18 at 21:00 Quetiapine Fumarate (SEROquel) 25 mg HS PO Last administered on 09/29/18at 20: 59; Start 09/28/18 at 21:00; Stop 09/30/18 at 17:23; Status DC Aripiprazole (Abilify) 2.5 mg QHS PO Last administered on 10/20/18 20:03; Start 09/30/18 at 21:00 Guaifenesin (Robitussin Dm) 10 ml PRN Q6HRS PRN PO COUGH Last administered on 19:11; Start 10/02/18 at 15:00 Nitrofurantoin Macrocrystals (Macrobid) 100 mg QHS PO Last administered on 10/20 20:03; Start 10/03/18 at 21:00 Cetirizine HCl (ZyrTEC) 10 mg DAILY PO Last administered on 10/20/18 08:27; Start 10/12/18 at 09:00 Docusate Sodium (Colace) 100 mg BID PO Last administered on 10/20/18 20:03; Start 10/18/18 at 21:00 Polyethylene Glycol (miraLAX) 17 gm DAILY PO Last administered on 10/20/18at 08: 24; Start 10/19/18 at 09:00 Nystatin (Mycostatin) 5 ml QID SWSW Last administered on 10/20/18at 20:12; Start 10/19/18 at 17:00 Active Scripts Active Reported Seroquel (Quetiapine Fumarate) 25 Mg Tablet 12.5 Mg PO DAILY16 Olanzapine 10 Mg Tablet 10 Mg PO PRN BID PRN Olanzapine Inj (Olanzapine) 10 Mg Vial 5 Mg IM PRN BID PRN Analgesic [place] (Methyl Salicylate/Menthol) 28 Gm Oint...g. 1 Frank TP PRN QID PRN Milk Of Magnesia (Magnesium Hydroxide) 2,400 Mg/10 Ml Oral.susp 2,400 Mg PO PRN QHS PRN Advanced Antacid Liquid (Mag Hydrox/Al Hydrox/Simeth) 355 Ml Oral.susp 15 Ml PO PRN AFTMEALHC PRN Culturelle (Lactobacillus Rhamnosus Gg) 1 Each Cap.sprink 1 Cap PO BID Humalog (Insulin Lispro) 100 Unit/1 Ml Cartridge 0-5 Unit SQ TIDWMEALS Gabapentin 100 Mg Capsule 100 Mg PO BID Cymbalta (Duloxetine Hcl) 60 Mg Capsule.dr 60 Mg PO DAILY Ciprofloxacin Hcl 500 Mg Tablet 500 Mg PO BID Venlafaxine Hcl Er (Venlafaxine Hcl) 150 Mg Tab.er.24 150 Mg PO DAILYWBKFT Quetiapine Fumarate 25 Mg Tablet 25 Mg PO DAILY Seroquel (Quetiapine Fumarate) 25 Mg Tablet 75 Mg PO QHS Namenda (Memantine Hcl) 10 Mg Tablet 10 Mg PO BID Lovastatin 40 Mg Tablet 80 Mg PO QHS Levothyroxine Sodium 100 Mcg Tablet 100 Mcg PO DAILYAC Keppra (Levetiracetam) 500 Mg Tablet 500 Mg PO BID Heparin 5,000 Unit/5 ml-Ns (Heparin Sod,Porcine/0.9 % NaCl) 5,000 Unit/5 Ml Syringe 5,000 Unit IM Q8HRS Vitamin D2 (Ergocalciferol (Vitamin D2)) 50,000 Unit Capsule 50,000 Unit PO WEEKLY Benazepril Hcl 20 Mg Tablet 20 Mg PO DAILY Aspirin 81 Mg Tab.chew 81 Mg PO DAILY Amlodipine Besylate 5 Mg Tablet 5 Mg PO DAILY Tylenol (Acetaminophen) 325 Mg Tablet 650 Mg PO PRN Q4HRS PRN I have reviewed the current psychotropics carefully including drug interactions. Risk benefit ratio favors no change other than as noted in my dictated progress note. Diagnosis: Problems: (1) Anxiety disorder (2) Mild cognitive disorder (3) Major depressive disorder, recurrent episode (4) Impulse control disorder ANTONIA BAILEY MD Oct 20, 2018 22:39
[2018-10-21] MEDS: LEVOTHYROXINE 100 MCG TABLET PO SCH (05:47)
[2018-10-21 06:01] VITALS: BP 124/79
--- NOTE | 2018-10-21 07:03 | PDOC ---
Exam Note: José Miguel Note: PSYCHIATRIC PROGRESS NOTE This late entry 10/18/2018 covers elements, not covered in my initial note. SUBJECTIVE: I met with the patient individually in the evening of 10/18/2018. Reviewed information from nursing staff. Reviewed the chart. She slept 6-1/2 hours. She is compliant with medications. She is withdrawn, isolative. No behavioral changes. No crying, less depressed. As she met with me, she is more verbal. REVIEW OF SYSTEMS: Ambulation impaired, in wheelchair. She is less sedated. No CV, , pulmonary, ENT system symptoms on review. MENTAL STATUS EXAMINATION: Oriented to herself and situation. Speech has some latency, low in volume, coherent. Often response is monosyllabic. She is withdrawn, more verbal. Abstraction is fair. Computation is impaired. Eye contact is poor. Psychomotor activity is reduced. Language function is intact. Attention span is short. LABORATORY DATA: Reviewed. IMPRESSION: Major depressive disorder with psychotic features, in partial remission. Cognitive disorder, unspecified. PLAN: I have carefully reviewed current psychotropics. There are no changes in the current treatment. Assessment: Vital Signs: VS - Last 72 Hours, by Label Date Time Temp Pulse Resp B/P (MAP) Pulse Ox O2 Delivery O2 Flow Rate FiO2 10/21/18 06:01 97.5 82 18 124/79 (94) 97 10/20/18 15:43 97.4 85 19 107/60 (76) 100 10/20/18 08:26 76 103/68 10/20/18 06:01 98.2 76 20 103/68 (80) 99 10/19/18 15:39 98.2 84 16 97/61 (73) 99 10/19/18 09:35 86 134/73 10/19/18 09:34 86 134/73 10/19/18 05:33 97.5 86 18 134/73 (93) 94 10/18/18 16:23 97.8 72 18 100/62 (75) 98 Room Air 10/18/18 08:21 98 153/77 10/18/18 08:20 98 153/77 Vital Signs Date Time Temp Pulse Resp B/P (MAP) Pulse Ox O2 Delivery O2 Flow Rate FiO2 10/21/18 06:01 97.5 82 18 124/79 (94) 97 10/18/18 16:23 Room Air I&O Intake and Output 10/21/18 07:01 Intake Total 720 ml Balance 720 ml Intake Oral 720 ml Labs: Laboratory Tests Test 10/20/18 07:05 10/20/18 11:39 10/20/18 16:29 10/20/18 19:45 Glucose (Fingerstick) 148 mg/dL (70-99) H 209 mg/dL (70-99) H 192 mg/dL (70-99) H 178 mg/dL (70-99) H Current Medications: Meds: Current Medications Acetaminophen (Tylenol) 650 mg PRN Q6HRS PRN PO PAIN / TEMP Last administered on 10/20/18 05:39; Start 08/08/18 at 20:00 Multi-Ingredient Ointment (Analgesic Jeremiah) 1 frank PRN QID PRN TP MUSCLE PAIN Last administered on 10/17/18at 19:38; Start 08/08/18 at 20:00 Al Hydroxide/Mg Hydroxide (Mylanta Plus Xs) 15 ml PRN AFTMEALHC PRN PO DYSPEPSIA; Start 08/08/18 at 20:00 Magnesium Hydroxide (Milk Of Magnesia) 2,400 mg PRN QHS PRN PO CONSTIPATION Last administered on 10/10/18 23:24; Start 08/08/18 at 20:00 Memantine (Namenda) 10 mg BID PO Last administered on 10/20/18at 20:04; Start 08/08/18 at 22:00 Quetiapine Fumarate (SEROquel) 25 mg DAILY PO Last administered on 09/05/18at 08 :51; Start 08/09/18 at 09:00; Stop 09/05/18 at 11:58; Status DC Quetiapine Fumarate (SEROquel) 75 mg HS PO Last administered on 09/21/18at 20: 38; Start 08/08/18 at 22:00; Stop 09/22/18 at 18:49; Status DC Venlafaxine HCl (Effexor) 50 mg TID PO Last administered on 08/10/18at 13:40; Start 08/09/18 at 09:00; Stop 08/10/18 at 17:54; Status DC Acetaminophen (Tylenol) 650 mg PRN Q4HRS PRN PO PAIN / TEMP; Start 08/08/18 at 21:30; Status Cancel Levothyroxine Sodium (Synthroid) 100 mcg DAILY06 PO Last administered on 05:47; Start 08/09/18 at 06:00 Amlodipine Besylate (Norvasc) 5 mg DAILY PO Last administered on 10/20/18 08: 26; Start 08/09/18 at 09:00 Aspirin (Children'S Aspirin) 81 mg DAILY PO Last administered on 10/20/18 08: 23; Start 08/09/18 at 09:00 Lisinopril (Prinivil) 20 mg DAILY PO Last administered on 10/19/18 09:35; Start 08/09/18 at 09:00 Vitamin D (Vitamin D3) 50,000 unit WEEKLY PO Last administered on 10/17/18 07: 42; Start 08/15/18 at 09:00 Heparin Sodium (Porcine) (Heparin Sq) 5,000 unit Q8HRS SQ Last administered on 08/27/18at 22:37; Start 08/08/18 at 22:00; Stop 08/27/18 at 23:00; Status DC Levetiracetam (Keppra) 500 mg BID PO Last administered on 10/20/18 20:04; Start 08/08/18 at 22:00 Atorvastatin Calcium (Lipitor) 20 mg QHS PO Last administered on 10/20/18 20: 04; Start 08/09/18 at 21:00 Insulin Human Lispro (HumaLOG) 0-5 UNITS TIDWMEALS SQ Last administered on 09/05at 09:13; Start 08/09/18 at 08:00; Stop 09/05/18 at 14:16; Status DC Dextrose 12.5 gm PRN Q15MIN PRN IV SEE COMMENTS; Start 08/09/18 at 05:45; Stop 09/05/18 at 14:16; Status DC Duloxetine HCl (Cymbalta) 30 mg DAILY PO Last administered on 08/12/18at 08:06 ; Start 08/11/18 at 09:00; Stop 08/12/18 at 09:02; Status DC Duloxetine HCl (Cymbalta) 60 mg DAILY PO Last administered on 09/28/18at 08:28 ; Start 08/13/18 at 09:00; Stop 09/28/18 at 19:49; Status DC Cephalexin HCl (Keflex) 500 mg TID PO Last administered on 08/20/18at 19:28; Start 08/11/18 at 09:00; Stop 08/21/18 at 08:59; Status DC Lactobacillus Rhamnosus (Culturelle) 1 cap BID PO Last administered on at 20:03; Start 08/11/18 at 09:00 Levothyroxine Sodium (Synthroid) 100 mcg 1X ONCE PO Last administered on 08/15at 06:23; Start 08/15/18 at 06:30; Stop 08/15/18 at 06:31; Status DC Olanzapine (ZyPREXA ZYDIS) 10 mg PRN BID PRN PO AGITATION; Start 08/24/18 at 17:45; Stop 09/22/18 at 12:01; Status DC Olanzapine (ZyPREXA IM) 5 mg PRN BID PRN IM AGITATION Last administered on at 17:53; Start 08/24/18 at 17:45; Stop 09/22/18 at 12:01; Status DC Cefpodoxime Proxetil (Vantin) 200 mg BID PO Last administered on 08/27/18at 08: 28; Start 08/25/18 at 17:30; Stop 08/27/18 at 17:27; Status DC Gabapentin (Neurontin) 100 mg BID PO Last administered on 09/13/18at 09:05; Start 08/25/18 at 21:00; Stop 09/13/18 at 16:30; Status DC Quetiapine Fumarate (SEROquel) 12.5 mg DAILY16 PO Last administered on at 16:29; Start 08/27/18 at 16:00; Stop 09/16/18 at 16:52; Status DC Heparin Sodium (Porcine) (Heparin Sodium) 5,000 unit Q8HRS SQ Last administered on 09/25/18at 13:45; Start 08/28/18 at 06:00; Stop 09/25/18 at 18 :16; Status DC Ciprofloxacin (Cipro) 500 mg BID PO Last administered on 09/06/18at 08:09; Start 08/27/18 at 21:00; Stop 09/06/18 at 20:59; Status DC Insulin Human Lispro (HumaLOG) 0-9 UNITS TIDWMEALS SQ Last administered on 10/20 17:21; Start 09/05/18 at 17:00 Dextrose 12.5 gm PRN Q15MIN PRN IV SEE COMMENTS; Start 09/05/18 at 14:15 Gabapentin (Neurontin) 200 mg TID PO Last administered on 10/20/18 20:03; Start 09/13/18 at 21:00 Bupropion HCl (Wellbutrin Xl) 150 mg DAILY PO Last administered on 10/20/18 08 :26; Start 09/17/18 at 09:00 Insulin Glargine (Lantus) 15 units QHS SQ Last administered on 10/20/18 20:10 ; Start 09/19/18 at 21:00 Olanzapine (ZyPREXA ZYDIS) 2.5 mg PRN Q2HR PRN PO PSYCHOSIS Last administered on 10/13/18 09:00; Start 09/22/18 at 12:00 Quetiapine Fumarate (SEROquel) 50 mg HS PO Last administered on 09/27/18at 21: 28; Start 09/22/18 at 21:00; Stop 09/28/18 at 19:49; Status DC Enoxaparin Sodium (Lovenox 40mg Syringe) 40 mg Q24H SQ Last administered on 20:08; Start 09/25/18 at 21:00 Duloxetine HCl (Cymbalta) 60 mg HS PO Last administered on 10/20/18at 20:04; Start 09/29/18 at 21:00 Quetiapine Fumarate (SEROquel) 25 mg HS PO Last administered on 09/29/18at 20: 59; Start 09/28/18 at 21:00; Stop 09/30/18 at 17:23; Status DC Aripiprazole (Abilify) 2.5 mg QHS PO Last administered on 10/20/18 20:03; Start 09/30/18 at 21:00 Guaifenesin (Robitussin Dm) 10 ml PRN Q6HRS PRN PO COUGH Last administered on at 19:11; Start 10/02/18 at 15:00 Nitrofurantoin Macrocrystals (Macrobid) 100 mg QHS PO Last administered on 10/20at 20:03; Start 10/03/18 at 21:00 Cetirizine HCl (ZyrTEC) 10 mg DAILY PO Last administered on 10/20/18at 08:27; Start 10/12/18 at 09:00 Docusate Sodium (Colace) 100 mg BID PO Last administered on 10/20/18at 20:03; Start 10/18/18 at 21:00 Polyethylene Glycol (miraLAX) 17 gm DAILY PO Last administered on 10/20/18at 08: 24; Start 10/19/18 at 09:00 Nystatin (Mycostatin) 5 ml QID SWSW Last administered on 10/20/18at 20:12; Start 10/19/18 at 17:00 Active Scripts Active Reported Seroquel (Quetiapine Fumarate) 25 Mg Tablet 12.5 Mg PO DAILY16 Olanzapine 10 Mg Tablet 10 Mg PO PRN BID PRN Olanzapine Inj (Olanzapine) 10 Mg Vial 5 Mg IM PRN BID PRN Analgesic Jeremiah (Methyl Salicylate/Menthol) 28 Gm Oint...g. 1 Frank TP PRN QID PRN Milk Of Magnesia (Magnesium Hydroxide) 2,400 Mg/10 Ml Oral.susp 2,400 Mg PO PRN QHS PRN Advanced Antacid Liquid (Mag Hydrox/Al Hydrox/Simeth) 355 Ml Oral.susp 15 Ml PO PRN AFTMEALHC PRN Culturelle (Lactobacillus Rhamnosus Gg) 1 Each Cap.sprink 1 Cap PO BID Humalog (Insulin Lispro) 100 Unit/1 Ml Cartridge 0-5 Unit SQ TIDWMEALS Gabapentin 100 Mg Capsule 100 Mg PO BID Cymbalta (Duloxetine Hcl) 60 Mg Capsule.dr 60 Mg PO DAILY Ciprofloxacin Hcl 500 Mg Tablet 500 Mg PO BID Venlafaxine Hcl Er (Venlafaxine Hcl) 150 Mg Tab.er.24 150 Mg PO DAILYWBKFT Quetiapine Fumarate 25 Mg Tablet 25 Mg PO DAILY Seroquel (Quetiapine Fumarate) 25 Mg Tablet 75 Mg PO QHS Namenda (Memantine Hcl) 10 Mg Tablet 10 Mg PO BID Lovastatin 40 Mg Tablet 80 Mg PO QHS Levothyroxine Sodium 100 Mcg Tablet 100 Mcg PO DAILYAC Keppra (Levetiracetam) 500 Mg Tablet 500 Mg PO BID Heparin 5,000 Unit/5 ml-Ns (Heparin Sod,Porcine/0.9 % NaCl) 5,000 Unit/5 Ml Syringe 5,000 Unit IM Q8HRS Vitamin D2 (Ergocalciferol (Vitamin D2)) 50,000 Unit Capsule 50,000 Unit PO WEEKLY Benazepril Hcl 20 Mg Tablet 20 Mg PO DAILY Aspirin 81 Mg Tab.chew 81 Mg PO DAILY Amlodipine Besylate 5 Mg Tablet 5 Mg PO DAILY Tylenol (Acetaminophen) 325 Mg Tablet 650 Mg PO PRN Q4HRS PRN I have reviewed the current psychotropics carefully including drug interactions. Risk benefit ratio favors no change other than as noted in my dictated progress note. Diagnosis: Problems: (1) Anxiety disorder (2) Mild cognitive disorder (3) Major depressive disorder, recurrent episode (4) Impulse control disorder ANTONIA BAILEY MD Oct 21, 2018 07:03
--- NOTE | 2018-10-21 07:20 | PDOC ---
Exam Note: José Miguel Note: PSYCHIATRIC PROGRESS NOTE This late entry 10/19/2018 covers elements, not covered in my initial note. SUBJECTIVE: I met with the patient individually in the evening of 10/19/2018. Reviewed information from nursing staff. Reviewed the chart. She slept 8.5 hours. She is compliant with medications. She did well previous night, withdrawn. She has poor eye contact. She has head on the table. She is being treated for thrush. She did well during the day on the . REVIEW OF SYSTEMS: Ambulation impaired, in wheelchair. No CV, , pulmonary, eye, ENT system symptoms on review. MENTAL STATUS EXAMINATION: She is still withdrawn. Verbal response is monosyllabic, has some latency. Eye contact is poor. Abstraction is fair. Computation is impaired. Psychomotor activity is reduced. Language function is intact. Attention span is short. LABORATORY DATA: Reviewed. IMPRESSION: Major depressive disorder with psychotic features, in partial remission. Cognitive disorder, unspecified. Plan: I have carefully reviewed current psychotropics. There are no changes from my initial note. Assessment: Vital Signs: VS - Last 72 Hours, by Label Date Time Temp Pulse Resp B/P (MAP) Pulse Ox O2 Delivery O2 Flow Rate FiO2 10/21/18 06:01 97.5 82 18 124/79 (94) 97 10/20/18 15:43 97.4 85 19 107/60 (76) 100 10/20/18 08:26 76 103/68 10/20/18 06:01 98.2 76 20 103/68 (80) 99 10/19/18 15:39 98.2 84 16 97/61 (73) 99 10/19/18 09:35 86 134/73 10/19/18 09:34 86 134/73 10/19/18 05:33 97.5 86 18 134/73 (93) 94 10/18/18 16:23 97.8 72 18 100/62 (75) 98 Room Air 10/18/18 08:21 98 153/77 10/18/18 08:20 98 153/77 Vital Signs Date Time Temp Pulse Resp B/P (MAP) Pulse Ox O2 Delivery O2 Flow Rate FiO2 10/21/18 06:01 97.5 82 18 124/79 (94) 97 10/18/18 16:23 Room Air I&O Intake and Output 10/21/18 07:01 Intake Total 720 ml Balance 720 ml Intake Oral 720 ml Labs: Laboratory Tests Test 10/20/18 11:39 10/20/18 16:29 10/20/18 19:45 Glucose (Fingerstick) 209 mg/dL (70-99) H 192 mg/dL (70-99) H 178 mg/dL (70-99) H Current Medications: Meds: Current Medications Acetaminophen (Tylenol) 650 mg PRN Q6HRS PRN PO PAIN / TEMP Last administered on 10/20/18 05:39; Start 08/08/18 at 20:00 Multi-Ingredient Ointment (Analgesic [place]) 1 frank PRN QID PRN TP MUSCLE PAIN Last administered on 10/17/18 19:38; Start 08/08/18 at 20:00 Al Hydroxide/Mg Hydroxide (Mylanta Plus Xs) 15 ml PRN AFTMEALHC PRN PO DYSPEPSIA; Start 08/08/18 at 20:00 Magnesium Hydroxide (Milk Of Magnesia) 2,400 mg PRN QHS PRN PO CONSTIPATION Last administered on 10/10/18at 23:24; Start 08/08/18 at 20:00 Memantine (Namenda) 10 mg BID PO Last administered on 10/20/18 20:04; Start 08/08/18 at 22:00 Quetiapine Fumarate (SEROquel) 25 mg DAILY PO Last administered on 09/05/18at 08 :51; Start 08/09/18 at 09:00; Stop 09/05/18 at 11:58; Status DC Quetiapine Fumarate (SEROquel) 75 mg HS PO Last administered on 09/21/18at 20: 38; Start 08/08/18 at 22:00; Stop 09/22/18 at 18:49; Status DC Venlafaxine HCl (Effexor) 50 mg TID PO Last administered on 08/10/18at 13:40; Start 08/09/18 at 09:00; Stop 08/10/18 at 17:54; Status DC Acetaminophen (Tylenol) 650 mg PRN Q4HRS PRN PO PAIN / TEMP; Start 08/08/18 at 21:30; Status Cancel Levothyroxine Sodium (Synthroid) 100 mcg DAILY06 PO Last administered on 05:47; Start 08/09/18 at 06:00 Amlodipine Besylate (Norvasc) 5 mg DAILY PO Last administered on 10/20/18 08: 26; Start 08/09/18 at 09:00 Aspirin (Children'S Aspirin) 81 mg DAILY PO Last administered on 10/20/18 08: 23; Start 08/09/18 at 09:00 Lisinopril (Prinivil) 20 mg DAILY PO Last administered on 10/19/18 09:35; Start 08/09/18 at 09:00 Vitamin D (Vitamin D3) 50,000 unit WEEKLY PO Last administered on 10/17/18 07: 42; Start 08/15/18 at 09:00 Heparin Sodium (Porcine) (Heparin Sq) 5,000 unit Q8HRS SQ Last administered on 08/27/18at 22:37; Start 08/08/18 at 22:00; Stop 08/27/18 at 23:00; Status DC Levetiracetam (Keppra) 500 mg BID PO Last administered on 10/20/18 20:04; Start 08/08/18 at 22:00 Atorvastatin Calcium (Lipitor) 20 mg QHS PO Last administered on 10/20/18 20: 04; Start 08/09/18 at 21:00 Insulin Human Lispro (HumaLOG) 0-5 UNITS TIDWMEALS SQ Last administered on 09/05at 09:13; Start 08/09/18 at 08:00; Stop 09/05/18 at 14:16; Status DC Dextrose 12.5 gm PRN Q15MIN PRN IV SEE COMMENTS; Start 08/09/18 at 05:45; Stop 09/05/18 at 14:16; Status DC Duloxetine HCl (Cymbalta) 30 mg DAILY PO Last administered on 08/12/18at 08:06 ; Start 08/11/18 at 09:00; Stop 08/12/18 at 09:02; Status DC Duloxetine HCl (Cymbalta) 60 mg DAILY PO Last administered on 09/28/18at 08:28 ; Start 08/13/18 at 09:00; Stop 09/28/18 at 19:49; Status DC Cephalexin HCl (Keflex) 500 mg TID PO Last administered on 08/20/18at 19:28; Start 08/11/18 at 09:00; Stop 08/21/18 at 08:59; Status DC Lactobacillus Rhamnosus (Culturelle) 1 cap BID PO Last administered on at 20:03; Start 08/11/18 at 09:00 Levothyroxine Sodium (Synthroid) 100 mcg 1X ONCE PO Last administered on 08/15at 06:23; Start 08/15/18 at 06:30; Stop 08/15/18 at 06:31; Status DC Olanzapine (ZyPREXA ZYDIS) 10 mg PRN BID PRN PO AGITATION; Start 08/24/18 at 17:45; Stop 09/22/18 at 12:01; Status DC Olanzapine (ZyPREXA IM) 5 mg PRN BID PRN IM AGITATION Last administered on at 17:53; Start 08/24/18 at 17:45; Stop 09/22/18 at 12:01; Status DC Cefpodoxime Proxetil (Vantin) 200 mg BID PO Last administered on 08/27/18at 08: 28; Start 08/25/18 at 17:30; Stop 08/27/18 at 17:27; Status DC Gabapentin (Neurontin) 100 mg BID PO Last administered on 09/13/18at 09:05; Start 08/25/18 at 21:00; Stop 09/13/18 at 16:30; Status DC Quetiapine Fumarate (SEROquel) 12.5 mg DAILY16 PO Last administered on at 16:29; Start 08/27/18 at 16:00; Stop 09/16/18 at 16:52; Status DC Heparin Sodium (Porcine) (Heparin Sodium) 5,000 unit Q8HRS SQ Last administered on 09/25/18at 13:45; Start 08/28/18 at 06:00; Stop 09/25/18 at 18 :16; Status DC Ciprofloxacin (Cipro) 500 mg BID PO Last administered on 09/06/18at 08:09; Start 08/27/18 at 21:00; Stop 09/06/18 at 20:59; Status DC Insulin Human Lispro (HumaLOG) 0-9 UNITS TIDWMEALS SQ Last administered on 10/20at 17:21; Start 09/05/18 at 17:00 Dextrose 12.5 gm PRN Q15MIN PRN IV SEE COMMENTS; Start 09/05/18 at 14:15 Gabapentin (Neurontin) 200 mg TID PO Last administered on 10/20/18 20:03; Start 09/13/18 at 21:00 Bupropion HCl (Wellbutrin Xl) 150 mg DAILY PO Last administered on 10/20/18 08 :26; Start 09/17/18 at 09:00 Insulin Glargine (Lantus) 15 units QHS SQ Last administered on 10/20/18 20:10 ; Start 09/19/18 at 21:00 Olanzapine (ZyPREXA ZYDIS) 2.5 mg PRN Q2HR PRN PO PSYCHOSIS Last administered on 10/13/18 09:00; Start 09/22/18 at 12:00 Quetiapine Fumarate (SEROquel) 50 mg HS PO Last administered on 09/27/18at 21: 28; Start 09/22/18 at 21:00; Stop 09/28/18 at 19:49; Status DC Enoxaparin Sodium (Lovenox 40mg Syringe) 40 mg Q24H SQ Last administered on 20:08; Start 09/25/18 at 21:00 Duloxetine HCl (Cymbalta) 60 mg HS PO Last administered on 10/20/18 20:04; Start 09/29/18 at 21:00 Quetiapine Fumarate (SEROquel) 25 mg HS PO Last administered on 09/29/18at 20: 59; Start 09/28/18 at 21:00; Stop 09/30/18 at 17:23; Status DC Aripiprazole (Abilify) 2.5 mg QHS PO Last administered on 10/20/18 20:03; Start 09/30/18 at 21:00 Guaifenesin (Robitussin Dm) 10 ml PRN Q6HRS PRN PO COUGH Last administered on 19:11; Start 10/02/18 at 15:00 Nitrofurantoin Macrocrystals (Macrobid) 100 mg QHS PO Last administered on 10/20 20:03; Start 10/03/18 at 21:00 Cetirizine HCl (ZyrTEC) 10 mg DAILY PO Last administered on 10/20/18at 08:27; Start 10/12/18 at 09:00 Docusate Sodium (Colace) 100 mg BID PO Last administered on 10/20/18at 20:03; Start 10/18/18 at 21:00 Polyethylene Glycol (miraLAX) 17 gm DAILY PO Last administered on 10/20/18at 08: 24; Start 10/19/18 at 09:00 Nystatin (Mycostatin) 5 ml QID SWSW Last administered on 10/20/18at 20:12; Start 10/19/18 at 17:00 Active Scripts Active Reported Seroquel (Quetiapine Fumarate) 25 Mg Tablet 12.5 Mg PO DAILY16 Olanzapine 10 Mg Tablet 10 Mg PO PRN BID PRN Olanzapine Inj (Olanzapine) 10 Mg Vial 5 Mg IM PRN BID PRN Analgesic [place] (Methyl Salicylate/Menthol) 28 Gm Oint...g. 1 Frank TP PRN QID PRN Milk Of Magnesia (Magnesium Hydroxide) 2,400 Mg/10 Ml Oral.susp 2,400 Mg PO PRN QHS PRN Advanced Antacid Liquid (Mag Hydrox/Al Hydrox/Simeth) 355 Ml Oral.susp 15 Ml PO PRN AFTMEALHC PRN Culturelle (Lactobacillus Rhamnosus Gg) 1 Each Cap.sprink 1 Cap PO BID Humalog (Insulin Lispro) 100 Unit/1 Ml Cartridge 0-5 Unit SQ TIDWMEALS Gabapentin 100 Mg Capsule 100 Mg PO BID Cymbalta (Duloxetine Hcl) 60 Mg Capsule.dr 60 Mg PO DAILY Ciprofloxacin Hcl 500 Mg Tablet 500 Mg PO BID Venlafaxine Hcl Er (Venlafaxine Hcl) 150 Mg Tab.er.24 150 Mg PO DAILYWBKFT Quetiapine Fumarate 25 Mg Tablet 25 Mg PO DAILY Seroquel (Quetiapine Fumarate) 25 Mg Tablet 75 Mg PO QHS Namenda (Memantine Hcl) 10 Mg Tablet 10 Mg PO BID Lovastatin 40 Mg Tablet 80 Mg PO QHS Levothyroxine Sodium 100 Mcg Tablet 100 Mcg PO DAILYAC Keppra (Levetiracetam) 500 Mg Tablet 500 Mg PO BID Heparin 5,000 Unit/5 ml-Ns (Heparin Sod,Porcine/0.9 % NaCl) 5,000 Unit/5 Ml Syringe 5,000 Unit IM Q8HRS Vitamin D2 (Ergocalciferol (Vitamin D2)) 50,000 Unit Capsule 50,000 Unit PO WEEKLY Benazepril Hcl 20 Mg Tablet 20 Mg PO DAILY Aspirin 81 Mg Tab.chew 81 Mg PO DAILY Amlodipine Besylate 5 Mg Tablet 5 Mg PO DAILY Tylenol (Acetaminophen) 325 Mg Tablet 650 Mg PO PRN Q4HRS PRN I have reviewed the current psychotropics carefully including drug interactions. Risk benefit ratio favors no change other than as noted in my dictated progress note. Diagnosis: Problems: (1) Anxiety disorder (2) Mild cognitive disorder (3) Major depressive disorder, recurrent episode (4) Impulse control disorder ANTONIA BAILEY MD Oct 21, 2018 07:20
[2018-10-21] MEDS: INSULIN LISPRO 300 UNITS/3 ML INSULN.PEN. SQ SCH ×3 (08:00→16:54)
[2018-10-21] MEDS: levETIRAcetam 500 MG TABLET PO SCH ×2 (09:08→20:57)
[2018-10-21] MEDS: CETIRIZINE HCL 10 MG TABLET PO SCH (09:08)
[2018-10-21] MEDS: DOCUSATE SODIUM 100 MG CAPSULE PO SCH ×2 (09:08→20:55)
[2018-10-21] MEDS: LACTOBACILLUS RHAMNOSUS GG 1 CAPSULE. PO SCH ×2 (09:08→20:56)
[2018-10-21] MEDS: LISINOPRIL 20 MG TABLET PO SCH (09:08)
[2018-10-21] MEDS: buPROPion XL 150 MG TAB.ER.24H PO SCH (09:09)
[2018-10-21] MEDS: amLODIPine BESYLATE 5 MG TABLET PO SCH (09:09)
[2018-10-21] MEDS: ASPIRIN 81 MG TAB.CHEW PO SCH (09:09)
[2018-10-21] MEDS: GABAPENTIN 100 MG CAPSULE. PO SCH ×3 (09:09→20:56)
[2018-10-21] MEDS: MEMANTINE 10 MG TABLET. PO SCH ×2 (09:09→20:55)
[2018-10-21] MEDS: NYSTATIN 100,000 UNITS/ML ORAL SUSPENSION 60ML BOTTLE. SWSW SCH ×4 (09:11→20:56)
[2018-10-21] MEDS: POLYETHYLENE GLYCOL 3350 17 GM PACKET. PO SCH (09:12)
[2018-10-21 16:44] VITALS: BP 95/61
[2018-10-21] MEDS: ACETAMINOPHEN 325 MG TABLET PO PRN (16:50)
[2018-10-21] MEDS: ENOXAPARIN 40 MG/0.4 ML SYRINGE. SQ SCH (20:55)
[2018-10-21] MEDS: ARIPiprazole 5 MG TABLET PO SCH (20:55)
[2018-10-21] MEDS: NITROFURANTOIN MONOHYD/M-CRYST 100 MG CAPSULE. PO SCH (20:56)
[2018-10-21] MEDS: DULoxetine HCL 60 MG CAPSULE.DR PO SCH (20:56)
[2018-10-21] MEDS: ATORVASTATIN CALCIUM 20 MG TABLET PO SCH (20:56)
[2018-10-21] MEDS: INSULIN GLARGINE 300 UNITS/3 ML INSULN.PEN. SQ SCH (21:08)
--- NOTE | 2018-10-21 22:36 | PDOC ---
Exam Note: José Miguel Note: Please also refer to the separate dictated note~for this date of service dictated separately.~Patient seen individually. Discussed the patient with Nursing staff reviewed the chart.~Reviewed interim history and current functioning. Reviewed vital signs,~Labs/ Radiology~and current medications noted below. Continue current treatment with the changes noted in the dictated addendum note Assessment: Vital Signs: Vital Signs Date Time Temp Pulse Resp B/P (MAP) Pulse Ox O2 Delivery O2 Flow Rate FiO2 10/21/18 16:44 98.5 89 18 95/61 (72) 96 10/18/18 16:23 Room Air I&O Intake and Output 10/21/18 07:01 Intake Total 720 ml Balance 720 ml Intake Oral 720 ml Labs: Laboratory Tests Test 10/21/18 07:19 10/21/18 11:41 10/21/18 16:42 10/21/18 19:21 Glucose (Fingerstick) 116 mg/dL (70-99) H 224 mg/dL (70-99) H 185 mg/dL (70-99) H 173 mg/dL (70-99) H Current Medications: Meds: Current Medications Acetaminophen (Tylenol) 650 mg PRN Q6HRS PRN PO PAIN / TEMP Last administered on 10/21/18 16:50; Start 08/08/18 at 20:00 Multi-Ingredient Ointment (Analgesic Cable) 1 frank PRN QID PRN TP MUSCLE PAIN Last administered on 10/17/18 19:38; Start 08/08/18 at 20:00 Al Hydroxide/Mg Hydroxide (Mylanta Plus Xs) 15 ml PRN AFTMEALHC PRN PO DYSPEPSIA; Start 08/08/18 at 20:00 Magnesium Hydroxide (Milk Of Magnesia) 2,400 mg PRN QHS PRN PO CONSTIPATION Last administered on 10/10/18 23:24; Start 08/08/18 at 20:00 Memantine (Namenda) 10 mg BID PO Last administered on 10/21/18 20:55; Start 08/08/18 at 22:00 Quetiapine Fumarate (SEROquel) 25 mg DAILY PO Last administered on 09/05/18at 08 :51; Start 08/09/18 at 09:00; Stop 09/05/18 at 11:58; Status DC Quetiapine Fumarate (SEROquel) 75 mg HS PO Last administered on 09/21/18at 20: 38; Start 08/08/18 at 22:00; Stop 09/22/18 at 18:49; Status DC Venlafaxine HCl (Effexor) 50 mg TID PO Last administered on 08/10/18at 13:40; Start 08/09/18 at 09:00; Stop 08/10/18 at 17:54; Status DC Acetaminophen (Tylenol) 650 mg PRN Q4HRS PRN PO PAIN / TEMP; Start 08/08/18 at 21:30; Status Cancel Levothyroxine Sodium (Synthroid) 100 mcg DAILY06 PO Last administered on 05:47; Start 08/09/18 at 06:00 Amlodipine Besylate (Norvasc) 5 mg DAILY PO Last administered on 10/21/18 09: 09; Start 08/09/18 at 09:00 Aspirin (Children'S Aspirin) 81 mg DAILY PO Last administered on 10/21/18 09: 09; Start 08/09/18 at 09:00 Lisinopril (Prinivil) 20 mg DAILY PO Last administered on 10/21/18 09:08; Start 08/09/18 at 09:00 Vitamin D (Vitamin D3) 50,000 unit WEEKLY PO Last administered on 10/17/18 07: 42; Start 08/15/18 at 09:00 Heparin Sodium (Porcine) (Heparin Sq) 5,000 unit Q8HRS SQ Last administered on 08/27/18at 22:37; Start 08/08/18 at 22:00; Stop 08/27/18 at 23:00; Status DC Levetiracetam (Keppra) 500 mg BID PO Last administered on 10/21/18 20:57; Start 08/08/18 at 22:00 Atorvastatin Calcium (Lipitor) 20 mg QHS PO Last administered on 10/21/18 20: 56; Start 08/09/18 at 21:00 Insulin Human Lispro (HumaLOG) 0-5 UNITS TIDWMEALS SQ Last administered on 09/05at 09:13; Start 08/09/18 at 08:00; Stop 09/05/18 at 14:16; Status DC Dextrose 12.5 gm PRN Q15MIN PRN IV SEE COMMENTS; Start 08/09/18 at 05:45; Stop 09/05/18 at 14:16; Status DC Duloxetine HCl (Cymbalta) 30 mg DAILY PO Last administered on 08/12/18at 08:06 ; Start 08/11/18 at 09:00; Stop 08/12/18 at 09:02; Status DC Duloxetine HCl (Cymbalta) 60 mg DAILY PO Last administered on 09/28/18at 08:28 ; Start 08/13/18 at 09:00; Stop 09/28/18 at 19:49; Status DC Cephalexin HCl (Keflex) 500 mg TID PO Last administered on 08/20/18at 19:28; Start 08/11/18 at 09:00; Stop 08/21/18 at 08:59; Status DC Lactobacillus Rhamnosus (Culturelle) 1 cap BID PO Last administered on at 20:56; Start 08/11/18 at 09:00 Levothyroxine Sodium (Synthroid) 100 mcg 1X ONCE PO Last administered on 08/15at 06:23; Start 08/15/18 at 06:30; Stop 08/15/18 at 06:31; Status DC Olanzapine (ZyPREXA ZYDIS) 10 mg PRN BID PRN PO AGITATION; Start 08/24/18 at 17:45; Stop 09/22/18 at 12:01; Status DC Olanzapine (ZyPREXA IM) 5 mg PRN BID PRN IM AGITATION Last administered on at 17:53; Start 08/24/18 at 17:45; Stop 09/22/18 at 12:01; Status DC Cefpodoxime Proxetil (Vantin) 200 mg BID PO Last administered on 08/27/18at 08: 28; Start 08/25/18 at 17:30; Stop 08/27/18 at 17:27; Status DC Gabapentin (Neurontin) 100 mg BID PO Last administered on 09/13/18at 09:05; Start 08/25/18 at 21:00; Stop 09/13/18 at 16:30; Status DC Quetiapine Fumarate (SEROquel) 12.5 mg DAILY16 PO Last administered on at 16:29; Start 08/27/18 at 16:00; Stop 09/16/18 at 16:52; Status DC Heparin Sodium (Porcine) (Heparin Sodium) 5,000 unit Q8HRS SQ Last administered on 09/25/18at 13:45; Start 08/28/18 at 06:00; Stop 09/25/18 at 18 :16; Status DC Ciprofloxacin (Cipro) 500 mg BID PO Last administered on 09/06/18at 08:09; Start 08/27/18 at 21:00; Stop 09/06/18 at 20:59; Status DC Insulin Human Lispro (HumaLOG) 0-9 UNITS TIDWMEALS SQ Last administered on 10/21 16:54; Start 09/05/18 at 17:00 Dextrose 12.5 gm PRN Q15MIN PRN IV SEE COMMENTS; Start 09/05/18 at 14:15 Gabapentin (Neurontin) 200 mg TID PO Last administered on 10/21/18 20:56; Start 09/13/18 at 21:00 Bupropion HCl (Wellbutrin Xl) 150 mg DAILY PO Last administered on 10/21/18 09 :09; Start 09/17/18 at 09:00 Insulin Glargine (Lantus) 15 units QHS SQ Last administered on 10/21/18 21:08 ; Start 09/19/18 at 21:00 Olanzapine (ZyPREXA ZYDIS) 2.5 mg PRN Q2HR PRN PO PSYCHOSIS Last administered on 10/21/18 14:33; Start 09/22/18 at 12:00 Quetiapine Fumarate (SEROquel) 50 mg HS PO Last administered on 09/27/18at 21: 28; Start 09/22/18 at 21:00; Stop 09/28/18 at 19:49; Status DC Enoxaparin Sodium (Lovenox 40mg Syringe) 40 mg Q24H SQ Last administered on 20:55; Start 09/25/18 at 21:00 Duloxetine HCl (Cymbalta) 60 mg HS PO Last administered on 10/21/18 20:56; Start 09/29/18 at 21:00 Quetiapine Fumarate (SEROquel) 25 mg HS PO Last administered on 09/29/18at 20: 59; Start 09/28/18 at 21:00; Stop 09/30/18 at 17:23; Status DC Aripiprazole (Abilify) 2.5 mg QHS PO Last administered on 10/21/18at 20:55; Start 09/30/18 at 21:00 Guaifenesin (Robitussin Dm) 10 ml PRN Q6HRS PRN PO COUGH Last administered on 19:11; Start 10/02/18 at 15:00 Nitrofurantoin Macrocrystals (Macrobid) 100 mg QHS PO Last administered on 10/21 20:56; Start 10/03/18 at 21:00 Cetirizine HCl (ZyrTEC) 10 mg DAILY PO Last administered on 10/21/18 09:08; Start 10/12/18 at 09:00 Docusate Sodium (Colace) 100 mg BID PO Last administered on 10/21/18 20:55; Start 10/18/18 at 21:00 Polyethylene Glycol (miraLAX) 17 gm DAILY PO Last administered on 10/21/18at 09: 12; Start 10/19/18 at 09:00 Nystatin (Mycostatin) 5 ml QID SWSW Last administered on 10/21/18 20:56; Start 10/19/18 at 17:00 Active Scripts Active Reported Seroquel (Quetiapine Fumarate) 25 Mg Tablet 12.5 Mg PO DAILY16 Olanzapine 10 Mg Tablet 10 Mg PO PRN BID PRN Olanzapine Inj (Olanzapine) 10 Mg Vial 5 Mg IM PRN BID PRN Analgesic Cable (Methyl Salicylate/Menthol) 28 Gm Oint...g. 1 Frank TP PRN QID PRN Milk Of Magnesia (Magnesium Hydroxide) 2,400 Mg/10 Ml Oral.susp 2,400 Mg PO PRN QHS PRN Advanced Antacid Liquid (Mag Hydrox/Al Hydrox/Simeth) 355 Ml Oral.susp 15 Ml PO PRN AFTMEALHC PRN Culturelle (Lactobacillus Rhamnosus Gg) 1 Each Cap.sprink 1 Cap PO BID Humalog (Insulin Lispro) 100 Unit/1 Ml Cartridge 0-5 Unit SQ TIDWMEALS Gabapentin 100 Mg Capsule 100 Mg PO BID Cymbalta (Duloxetine Hcl) 60 Mg Capsule.dr 60 Mg PO DAILY Ciprofloxacin Hcl 500 Mg Tablet 500 Mg PO BID Venlafaxine Hcl Er (Venlafaxine Hcl) 150 Mg Tab.er.24 150 Mg PO DAILYWBKFT Quetiapine Fumarate 25 Mg Tablet 25 Mg PO DAILY Seroquel (Quetiapine Fumarate) 25 Mg Tablet 75 Mg PO QHS Namenda (Memantine Hcl) 10 Mg Tablet 10 Mg PO BID Lovastatin 40 Mg Tablet 80 Mg PO QHS Levothyroxine Sodium 100 Mcg Tablet 100 Mcg PO DAILYAC Keppra (Levetiracetam) 500 Mg Tablet 500 Mg PO BID Heparin 5,000 Unit/5 ml-Ns (Heparin Sod,Porcine/0.9 % NaCl) 5,000 Unit/5 Ml Syringe 5,000 Unit IM Q8HRS Vitamin D2 (Ergocalciferol (Vitamin D2)) 50,000 Unit Capsule 50,000 Unit PO WEEKLY Benazepril Hcl 20 Mg Tablet 20 Mg PO DAILY Aspirin 81 Mg Tab.chew 81 Mg PO DAILY Amlodipine Besylate 5 Mg Tablet 5 Mg PO DAILY Tylenol (Acetaminophen) 325 Mg Tablet 650 Mg PO PRN Q4HRS PRN I have reviewed the current psychotropics carefully including drug interactions. Risk benefit ratio favors no change other than as noted in my dictated progress note. Diagnosis: Problems: (1) Anxiety disorder (2) Mild cognitive disorder (3) Major depressive disorder, recurrent episode (4) Impulse control disorder ANTONIA BAILEY MD Oct 21, 2018 22:36
--- NOTE | 2018-10-21 23:24 | RAD ---
Examination: SHOULDER 2+V LEFT History: Left shoulder pain, no known injury, poor range of motion
Comparison/Correlation: None Findings: Total 3 images of the left shoulder were obtained. Mild acromioclavicular joint space narrowing is present. Glenohumeral joint relationship is unremarkable. No acute fracture or bony destruction. Left axillary surgical clips are present. Soft tissues are grossly unremarkable. Impression: No acute process. Electronically signed by: Wilmer Gentile MD (10/21/2018 11:20 PM) [facility]
[2018-10-22 05:48] VITALS: BP 150/80
[2018-10-22] MEDS: LEVOTHYROXINE 100 MCG TABLET PO SCH (05:58)
[2018-10-22] MEDS: levETIRAcetam 500 MG TABLET PO SCH ×2 (07:59→20:32)
[2018-10-22] MEDS: amLODIPine BESYLATE 5 MG TABLET PO SCH (07:59)
[2018-10-22] MEDS: ASPIRIN 81 MG TAB.CHEW PO SCH (07:59)
[2018-10-22] MEDS: LACTOBACILLUS RHAMNOSUS GG 1 CAPSULE. PO SCH ×2 (07:59→20:29)
[2018-10-22] MEDS: GABAPENTIN 100 MG CAPSULE. PO SCH ×3 (08:00→20:32)
[2018-10-22] MEDS: INSULIN LISPRO 300 UNITS/3 ML INSULN.PEN. SQ SCH ×3 (08:00→17:28)
[2018-10-22] MEDS: LISINOPRIL 20 MG TABLET PO SCH (08:00)
[2018-10-22] MEDS: DOCUSATE SODIUM 100 MG CAPSULE PO SCH ×2 (08:00→20:30)
[2018-10-22] MEDS: CETIRIZINE HCL 10 MG TABLET PO SCH (08:00)
[2018-10-22] MEDS: buPROPion XL 150 MG TAB.ER.24H PO SCH (08:00)
[2018-10-22] MEDS: MEMANTINE 10 MG TABLET. PO SCH ×2 (08:00→20:30)
[2018-10-22] MEDS: POLYETHYLENE GLYCOL 3350 17 GM PACKET. PO SCH (08:01)
[2018-10-22] MEDS: NYSTATIN 100,000 UNITS/ML ORAL SUSPENSION 60ML BOTTLE. SWSW SCH ×4 (08:03→20:29)
[2018-10-22] MEDS: METHYL SALICYLATE/MENTHOL TOPICAL OINTMENT 29GM TUBE. TP PRN (09:36)
[2018-10-22 15:50] VITALS: BP 122/75
--- NOTE | 2018-10-22 17:41 | PN ---
DATE: 10/20/2018 PSYCHIATRIC PROGRESS NOTE This late entry 10/20/2018 covers elements, not covered in my initial note. SUBJECTIVE: The patient slept 7 hours previous night. She has been somewhat withdrawn, head on the table at times. Complains of tiredness, but no suicidal or homicidal ideation. Other times, mood is better. She remains in her wheelchair. LABORATORY DATA: Reviewed. IMPRESSION: Major depressive disorder with psychotic features in partial remission; cognitive disorder, unspecified. Rest unchanged. PLAN: No change from initial note. MAN Han BAILEY MD DR: RAYMON/christen JOB#: [id number] / [id number]
--- NOTE | 2018-10-22 18:48 | PN ---
DATE: 10/21/2018 PSYCHIATRIC PROGRESS NOTE This late entry 10/21/2018 covers elements not covered in my initial note. SUBJECTIVE: I met with the patient in the evening. The patient slept 8-3/4 hours previous night, somewhat withdrawn, crying at times, talking about Deborah. When I questioned her, she was able to tell me as she was her niece and she was remembering her. REVIEW OF SYSTEMS: Ambulation impaired, in wheelchair. No CV, , pulmonary, eye, ENT system symptoms on review. MENTAL STATUS EXAM: Oriented to herself and situation. Speech moderate latency, often responses monosyllabic. Abstraction fair, computation impaired, language function intact, attention span short. Mood and affect withdrawn. No suicidal ideation. LABORATORY DATA: Reviewed. IMPRESSION: Major depressive disorder with psychotic features, in partial remission; anxiety disorder, unspecified; cognitive disorder, unspecified. PLAN: Continue psychotropics from initial note. Make further changes as clinically indicated. ANTONIA BAILEY MD DR: RAYMON/christen JOB#: [id number] / [id number]
[2018-10-22] MEDS: DULoxetine HCL 60 MG CAPSULE.DR PO SCH (20:29)
[2018-10-22] MEDS: ATORVASTATIN CALCIUM 20 MG TABLET PO SCH (20:29)
[2018-10-22] MEDS: NITROFURANTOIN MONOHYD/M-CRYST 100 MG CAPSULE. PO SCH (20:29)
[2018-10-22] MEDS: ARIPiprazole 5 MG TABLET PO SCH (20:29)
[2018-10-22] MEDS: INSULIN GLARGINE 300 UNITS/3 ML INSULN.PEN. SQ SCH (20:31)
[2018-10-22] MEDS: ENOXAPARIN 40 MG/0.4 ML SYRINGE. SQ SCH (20:32)
[2018-10-22] MEDS: MAGNESIUM HYDROXIDE 2,400 MG/30 ML ORAL.SUSP. PO PRN (21:16)
--- NOTE | 2018-10-22 22:25 | PDOC ---
Exam Note: José Miguel Note: Please also refer to the separate dictated note~for this date of service dictated separately.~Patient seen individually. Discussed the patient with Nursing staff reviewed the chart.~Reviewed interim history and current functioning. Reviewed vital signs,~Labs/ Radiology~and current medications noted below. Continue current treatment with the changes noted in the dictated addendum note Assessment: Vital Signs: Vital Signs Date Time Temp Pulse Resp B/P (MAP) Pulse Ox O2 Delivery O2 Flow Rate FiO2 10/22/18 15:50 98.3 72 18 122/75 (91) 94 10/22/18 05:48 Room Air I&O Intake and Output 10/22/18 07:01 Intake Total 1080 ml Balance 1080 ml Intake Oral 1080 ml Labs: Laboratory Tests Test 10/22/18 07:19 10/22/18 11:36 10/22/18 16:47 10/22/18 19:04 Glucose (Fingerstick) 116 mg/dL (70-99) H 156 mg/dL (70-99) H 153 mg/dL (70-99) H 164 mg/dL (70-99) H Current Medications: Meds: Current Medications Acetaminophen (Tylenol) 650 mg PRN Q6HRS PRN PO PAIN / TEMP Last administered on 10/21/18 16:50; Start 08/08/18 at 20:00 Multi-Ingredient Ointment (Analgesic Effie) 1 frank PRN QID PRN TP MUSCLE PAIN Last administered on 10/22/18 09:36; Start 08/08/18 at 20:00 Al Hydroxide/Mg Hydroxide (Mylanta Plus Xs) 15 ml PRN AFTMEALHC PRN PO DYSPEPSIA; Start 08/08/18 at 20:00 Magnesium Hydroxide (Milk Of Magnesia) 2,400 mg PRN QHS PRN PO CONSTIPATION Last administered on 10/22/18 21:16; Start 08/08/18 at 20:00 Memantine (Namenda) 10 mg BID PO Last administered on 10/22/18 20:30; Start 08/08/18 at 22:00 Quetiapine Fumarate (SEROquel) 25 mg DAILY PO Last administered on 09/05/18at 08 :51; Start 08/09/18 at 09:00; Stop 09/05/18 at 11:58; Status DC Quetiapine Fumarate (SEROquel) 75 mg HS PO Last administered on 09/21/18at 20: 38; Start 08/08/18 at 22:00; Stop 09/22/18 at 18:49; Status DC Venlafaxine HCl (Effexor) 50 mg TID PO Last administered on 08/10/18at 13:40; Start 08/09/18 at 09:00; Stop 08/10/18 at 17:54; Status DC Acetaminophen (Tylenol) 650 mg PRN Q4HRS PRN PO PAIN / TEMP; Start 08/08/18 at 21:30; Status Cancel Levothyroxine Sodium (Synthroid) 100 mcg DAILY06 PO Last administered on 05:58; Start 08/09/18 at 06:00 Amlodipine Besylate (Norvasc) 5 mg DAILY PO Last administered on 10/22/18 07: 59; Start 08/09/18 at 09:00 Aspirin (Children'S Aspirin) 81 mg DAILY PO Last administered on 10/22/18 07: 59; Start 08/09/18 at 09:00 Lisinopril (Prinivil) 20 mg DAILY PO Last administered on 10/22/18 08:00; Start 08/09/18 at 09:00 Vitamin D (Vitamin D3) 50,000 unit WEEKLY PO Last administered on 10/17/18 07: 42; Start 08/15/18 at 09:00 Heparin Sodium (Porcine) (Heparin Sq) 5,000 unit Q8HRS SQ Last administered on 08/27/18at 22:37; Start 08/08/18 at 22:00; Stop 08/27/18 at 23:00; Status DC Levetiracetam (Keppra) 500 mg BID PO Last administered on 10/22/18 20:32; Start 08/08/18 at 22:00 Atorvastatin Calcium (Lipitor) 20 mg QHS PO Last administered on 10/22/18 20: 29; Start 08/09/18 at 21:00 Insulin Human Lispro (HumaLOG) 0-5 UNITS TIDWMEALS SQ Last administered on 09/05at 09:13; Start 08/09/18 at 08:00; Stop 09/05/18 at 14:16; Status DC Dextrose 12.5 gm PRN Q15MIN PRN IV SEE COMMENTS; Start 08/09/18 at 05:45; Stop 09/05/18 at 14:16; Status DC Duloxetine HCl (Cymbalta) 30 mg DAILY PO Last administered on 08/12/18at 08:06 ; Start 08/11/18 at 09:00; Stop 08/12/18 at 09:02; Status DC Duloxetine HCl (Cymbalta) 60 mg DAILY PO Last administered on 09/28/18at 08:28 ; Start 08/13/18 at 09:00; Stop 09/28/18 at 19:49; Status DC Cephalexin HCl (Keflex) 500 mg TID PO Last administered on 08/20/18at 19:28; Start 08/11/18 at 09:00; Stop 08/21/18 at 08:59; Status DC Lactobacillus Rhamnosus (Culturelle) 1 cap BID PO Last administered on at 20:29; Start 08/11/18 at 09:00 Levothyroxine Sodium (Synthroid) 100 mcg 1X ONCE PO Last administered on 08/15at 06:23; Start 08/15/18 at 06:30; Stop 08/15/18 at 06:31; Status DC Olanzapine (ZyPREXA ZYDIS) 10 mg PRN BID PRN PO AGITATION; Start 08/24/18 at 17:45; Stop 09/22/18 at 12:01; Status DC Olanzapine (ZyPREXA IM) 5 mg PRN BID PRN IM AGITATION Last administered on at 17:53; Start 08/24/18 at 17:45; Stop 09/22/18 at 12:01; Status DC Cefpodoxime Proxetil (Vantin) 200 mg BID PO Last administered on 08/27/18at 08: 28; Start 08/25/18 at 17:30; Stop 08/27/18 at 17:27; Status DC Gabapentin (Neurontin) 100 mg BID PO Last administered on 09/13/18at 09:05; Start 08/25/18 at 21:00; Stop 09/13/18 at 16:30; Status DC Quetiapine Fumarate (SEROquel) 12.5 mg DAILY16 PO Last administered on at 16:29; Start 08/27/18 at 16:00; Stop 09/16/18 at 16:52; Status DC Heparin Sodium (Porcine) (Heparin Sodium) 5,000 unit Q8HRS SQ Last administered on 09/25/18at 13:45; Start 08/28/18 at 06:00; Stop 09/25/18 at 18 :16; Status DC Ciprofloxacin (Cipro) 500 mg BID PO Last administered on 09/06/18at 08:09; Start 08/27/18 at 21:00; Stop 09/06/18 at 20:59; Status DC Insulin Human Lispro (HumaLOG) 0-9 UNITS TIDWMEALS SQ Last administered on 10/22 17:28; Start 09/05/18 at 17:00 Dextrose 12.5 gm PRN Q15MIN PRN IV SEE COMMENTS; Start 09/05/18 at 14:15 Gabapentin (Neurontin) 200 mg TID PO Last administered on 10/22/18 20:32; Start 09/13/18 at 21:00 Bupropion HCl (Wellbutrin Xl) 150 mg DAILY PO Last administered on 10/22/18 08 :00; Start 09/17/18 at 09:00 Insulin Glargine (Lantus) 15 units QHS SQ Last administered on 10/22/18 20:31 ; Start 09/19/18 at 21:00 Olanzapine (ZyPREXA ZYDIS) 2.5 mg PRN Q2HR PRN PO PSYCHOSIS Last administered on 10/21/18 14:33; Start 09/22/18 at 12:00 Quetiapine Fumarate (SEROquel) 50 mg HS PO Last administered on 09/27/18at 21: 28; Start 09/22/18 at 21:00; Stop 09/28/18 at 19:49; Status DC Enoxaparin Sodium (Lovenox 40mg Syringe) 40 mg Q24H SQ Last administered on 20:32; Start 09/25/18 at 21:00 Duloxetine HCl (Cymbalta) 60 mg HS PO Last administered on 10/22/18 20:29; Start 09/29/18 at 21:00 Quetiapine Fumarate (SEROquel) 25 mg HS PO Last administered on 09/29/18at 20: 59; Start 09/28/18 at 21:00; Stop 09/30/18 at 17:23; Status DC Aripiprazole (Abilify) 2.5 mg QHS PO Last administered on 10/22/18 20:29; Start 09/30/18 at 21:00 Guaifenesin (Robitussin Dm) 10 ml PRN Q6HRS PRN PO COUGH Last administered on 19:11; Start 10/02/18 at 15:00 Nitrofurantoin Macrocrystals (Macrobid) 100 mg QHS PO Last administered on 10/22 20:29; Start 10/03/18 at 21:00 Cetirizine HCl (ZyrTEC) 10 mg DAILY PO Last administered on 10/22/18 08:00; Start 10/12/18 at 09:00 Docusate Sodium (Colace) 100 mg BID PO Last administered on 10/22/18 20:30; Start 10/18/18 at 21:00 Polyethylene Glycol (miraLAX) 17 gm DAILY PO Last administered on 10/22/18 08: 01; Start 10/19/18 at 09:00 Nystatin (Mycostatin) 5 ml QID SWSW Last administered on 10/22/18 20:29; Start 10/19/18 at 17:00 Active Scripts Active Reported Seroquel (Quetiapine Fumarate) 25 Mg Tablet 12.5 Mg PO DAILY16 Olanzapine 10 Mg Tablet 10 Mg PO PRN BID PRN Olanzapine Inj (Olanzapine) 10 Mg Vial 5 Mg IM PRN BID PRN Analgesic Effie (Methyl Salicylate/Menthol) 28 Gm Oint...g. 1 Frank TP PRN QID PRN Milk Of Magnesia (Magnesium Hydroxide) 2,400 Mg/10 Ml Oral.susp 2,400 Mg PO PRN QHS PRN Advanced Antacid Liquid (Mag Hydrox/Al Hydrox/Simeth) 355 Ml Oral.susp 15 Ml PO PRN AFTMEALHC PRN Culturelle (Lactobacillus Rhamnosus Gg) 1 Each Cap.sprink 1 Cap PO BID Humalog (Insulin Lispro) 100 Unit/1 Ml Cartridge 0-5 Unit SQ TIDWMEALS Gabapentin 100 Mg Capsule 100 Mg PO BID Cymbalta (Duloxetine Hcl) 60 Mg Capsule.dr 60 Mg PO DAILY Ciprofloxacin Hcl 500 Mg Tablet 500 Mg PO BID Venlafaxine Hcl Er (Venlafaxine Hcl) 150 Mg Tab.er.24 150 Mg PO DAILYWBKFT Quetiapine Fumarate 25 Mg Tablet 25 Mg PO DAILY Seroquel (Quetiapine Fumarate) 25 Mg Tablet 75 Mg PO QHS Namenda (Memantine Hcl) 10 Mg Tablet 10 Mg PO BID Lovastatin 40 Mg Tablet 80 Mg PO QHS Levothyroxine Sodium 100 Mcg Tablet 100 Mcg PO DAILYAC Keppra (Levetiracetam) 500 Mg Tablet 500 Mg PO BID Heparin 5,000 Unit/5 ml-Ns (Heparin Sod,Porcine/0.9 % NaCl) 5,000 Unit/5 Ml Syringe 5,000 Unit IM Q8HRS Vitamin D2 (Ergocalciferol (Vitamin D2)) 50,000 Unit Capsule 50,000 Unit PO WEEKLY Benazepril Hcl 20 Mg Tablet 20 Mg PO DAILY Aspirin 81 Mg Tab.chew 81 Mg PO DAILY Amlodipine Besylate 5 Mg Tablet 5 Mg PO DAILY Tylenol (Acetaminophen) 325 Mg Tablet 650 Mg PO PRN Q4HRS PRN I have reviewed the current psychotropics carefully including drug interactions. Risk benefit ratio favors no change other than as noted in my dictated progress note. Diagnosis: Problems: (1) Anxiety disorder (2) Mild cognitive disorder (3) Major depressive disorder, recurrent episode (4) Impulse control disorder ANTONIA BAILEY MD Oct 22, 2018 22:25
[2018-10-23] MEDS: LEVOTHYROXINE 100 MCG TABLET PO SCH (05:25)
[2018-10-23 06:24] VITALS: BP 124/76
[2018-10-23] MEDS: INSULIN LISPRO 300 UNITS/3 ML INSULN.PEN. SQ SCH ×3 (07:51→17:25)
[2018-10-23] MEDS: CETIRIZINE HCL 10 MG TABLET PO SCH (09:37)
[2018-10-23] MEDS: POLYETHYLENE GLYCOL 3350 17 GM PACKET. PO SCH (09:37)
[2018-10-23] MEDS: levETIRAcetam 500 MG TABLET PO SCH ×2 (09:37→21:52)
[2018-10-23] MEDS: buPROPion XL 150 MG TAB.ER.24H PO SCH (09:37)
[2018-10-23] MEDS: MEMANTINE 10 MG TABLET. PO SCH ×2 (09:37→21:51)
[2018-10-23] MEDS: LACTOBACILLUS RHAMNOSUS GG 1 CAPSULE. PO SCH ×2 (09:37→21:51)
[2018-10-23] MEDS: ASPIRIN 81 MG TAB.CHEW PO SCH (09:37)
[2018-10-23] MEDS: amLODIPine BESYLATE 5 MG TABLET PO SCH (09:37)
[2018-10-23] MEDS: LISINOPRIL 20 MG TABLET PO SCH (09:38)
[2018-10-23] MEDS: GABAPENTIN 100 MG CAPSULE. PO SCH ×3 (09:42→21:57)
[2018-10-23] MEDS: DOCUSATE SODIUM 100 MG CAPSULE PO SCH ×2 (09:42→21:51)
[2018-10-23] MEDS: NYSTATIN 100,000 UNITS/ML ORAL SUSPENSION 60ML BOTTLE. SWSW SCH ×4 (09:43→21:52)
[2018-10-23 17:02] VITALS: BP 113/77
[2018-10-23] MEDS: ENOXAPARIN 40 MG/0.4 ML SYRINGE. SQ SCH (21:51)
[2018-10-23] MEDS: NITROFURANTOIN MONOHYD/M-CRYST 100 MG CAPSULE. PO SCH (21:51)
[2018-10-23] MEDS: DULoxetine HCL 60 MG CAPSULE.DR PO SCH (21:52)
[2018-10-23] MEDS: ARIPiprazole 5 MG TABLET PO SCH (21:52)
[2018-10-23] MEDS: ATORVASTATIN CALCIUM 20 MG TABLET PO SCH (21:52)
[2018-10-23] MEDS: INSULIN GLARGINE 300 UNITS/3 ML INSULN.PEN. SQ SCH (21:53)
--- NOTE | 2018-10-23 22:40 | PDOC ---
Exam Note: José Miguel Note: Please also refer to the separate dictated note~for this date of service dictated separately.~Patient seen individually. Discussed the patient with Nursing staff reviewed the chart.~Reviewed interim history and current functioning. Reviewed vital signs,~Labs/ Radiology~and current medications noted below. Continue current treatment with the changes noted in the dictated addendum note Assessment: Vital Signs: Vital Signs Date Time Temp Pulse Resp B/P (MAP) Pulse Ox O2 Delivery O2 Flow Rate FiO2 10/23/18 17:02 97.7 93 18 113/77 (89) 91 10/22/18 05:48 Room Air I&O Intake and Output 10/23/18 07:01 Intake Total 960 ml Balance 960 ml Intake Oral 960 ml # Bowel Movements 1 Labs: Laboratory Tests Test 10/23/18 07:36 10/23/18 11:22 10/23/18 17:09 10/23/18 19:16 Glucose (Fingerstick) 143 mg/dL (70-99) H 184 mg/dL (70-99) H 191 mg/dL (70-99) H 164 mg/dL (70-99) H Current Medications: Meds: Current Medications Acetaminophen (Tylenol) 650 mg PRN Q6HRS PRN PO PAIN / TEMP Last administered on 10/21/18 16:50; Start 08/08/18 at 20:00 Multi-Ingredient Ointment (Analgesic [place]) 1 frank PRN QID PRN TP MUSCLE PAIN Last administered on 10/22/18 09:36; Start 08/08/18 at 20:00 Al Hydroxide/Mg Hydroxide (Mylanta Plus Xs) 15 ml PRN AFTMEALHC PRN PO DYSPEPSIA; Start 08/08/18 at 20:00 Magnesium Hydroxide (Milk Of Magnesia) 2,400 mg PRN QHS PRN PO CONSTIPATION Last administered on 10/22/18 21:16; Start 08/08/18 at 20:00 Memantine (Namenda) 10 mg BID PO Last administered on 10/23/18 21:51; Start 08/08/18 at 22:00 Quetiapine Fumarate (SEROquel) 25 mg DAILY PO Last administered on 09/05/18at 08 :51; Start 08/09/18 at 09:00; Stop 09/05/18 at 11:58; Status DC Quetiapine Fumarate (SEROquel) 75 mg HS PO Last administered on 09/21/18at 20: 38; Start 08/08/18 at 22:00; Stop 09/22/18 at 18:49; Status DC Venlafaxine HCl (Effexor) 50 mg TID PO Last administered on 08/10/18at 13:40; Start 08/09/18 at 09:00; Stop 08/10/18 at 17:54; Status DC Acetaminophen (Tylenol) 650 mg PRN Q4HRS PRN PO PAIN / TEMP; Start 08/08/18 at 21:30; Status Cancel Levothyroxine Sodium (Synthroid) 100 mcg DAILY06 PO Last administered on 05:25; Start 08/09/18 at 06:00 Amlodipine Besylate (Norvasc) 5 mg DAILY PO Last administered on 10/23/18 09: 37; Start 08/09/18 at 09:00 Aspirin (Children'S Aspirin) 81 mg DAILY PO Last administered on 10/23/18 09: 37; Start 08/09/18 at 09:00 Lisinopril (Prinivil) 20 mg DAILY PO Last administered on 10/23/18 09:38; Start 08/09/18 at 09:00 Vitamin D (Vitamin D3) 50,000 unit WEEKLY PO Last administered on 10/17/18 07: 42; Start 08/15/18 at 09:00 Heparin Sodium (Porcine) (Heparin Sq) 5,000 unit Q8HRS SQ Last administered on 08/27/18at 22:37; Start 08/08/18 at 22:00; Stop 08/27/18 at 23:00; Status DC Levetiracetam (Keppra) 500 mg BID PO Last administered on 10/23/18 21:52; Start 08/08/18 at 22:00 Atorvastatin Calcium (Lipitor) 20 mg QHS PO Last administered on 10/23/18 21: 52; Start 08/09/18 at 21:00 Insulin Human Lispro (HumaLOG) 0-5 UNITS TIDWMEALS SQ Last administered on 09/05at 09:13; Start 08/09/18 at 08:00; Stop 09/05/18 at 14:16; Status DC Dextrose 12.5 gm PRN Q15MIN PRN IV SEE COMMENTS; Start 08/09/18 at 05:45; Stop 09/05/18 at 14:16; Status DC Duloxetine HCl (Cymbalta) 30 mg DAILY PO Last administered on 08/12/18at 08:06 ; Start 08/11/18 at 09:00; Stop 08/12/18 at 09:02; Status DC Duloxetine HCl (Cymbalta) 60 mg DAILY PO Last administered on 09/28/18at 08:28 ; Start 08/13/18 at 09:00; Stop 09/28/18 at 19:49; Status DC Cephalexin HCl (Keflex) 500 mg TID PO Last administered on 08/20/18at 19:28; Start 08/11/18 at 09:00; Stop 08/21/18 at 08:59; Status DC Lactobacillus Rhamnosus (Culturelle) 1 cap BID PO Last administered on at 21:51; Start 08/11/18 at 09:00 Levothyroxine Sodium (Synthroid) 100 mcg 1X ONCE PO Last administered on 08/15at 06:23; Start 08/15/18 at 06:30; Stop 08/15/18 at 06:31; Status DC Olanzapine (ZyPREXA ZYDIS) 10 mg PRN BID PRN PO AGITATION; Start 08/24/18 at 17:45; Stop 09/22/18 at 12:01; Status DC Olanzapine (ZyPREXA IM) 5 mg PRN BID PRN IM AGITATION Last administered on at 17:53; Start 08/24/18 at 17:45; Stop 09/22/18 at 12:01; Status DC Cefpodoxime Proxetil (Vantin) 200 mg BID PO Last administered on 08/27/18at 08: 28; Start 08/25/18 at 17:30; Stop 08/27/18 at 17:27; Status DC Gabapentin (Neurontin) 100 mg BID PO Last administered on 09/13/18at 09:05; Start 08/25/18 at 21:00; Stop 09/13/18 at 16:30; Status DC Quetiapine Fumarate (SEROquel) 12.5 mg DAILY16 PO Last administered on at 16:29; Start 08/27/18 at 16:00; Stop 09/16/18 at 16:52; Status DC Heparin Sodium (Porcine) (Heparin Sodium) 5,000 unit Q8HRS SQ Last administered on 09/25/18at 13:45; Start 08/28/18 at 06:00; Stop 09/25/18 at 18 :16; Status DC Ciprofloxacin (Cipro) 500 mg BID PO Last administered on 09/06/18at 08:09; Start 08/27/18 at 21:00; Stop 09/06/18 at 20:59; Status DC Insulin Human Lispro (HumaLOG) 0-9 UNITS TIDWMEALS SQ Last administered on 10/23 17:25; Start 09/05/18 at 17:00 Dextrose 12.5 gm PRN Q15MIN PRN IV SEE COMMENTS; Start 09/05/18 at 14:15 Gabapentin (Neurontin) 200 mg TID PO Last administered on 10/23/18 21:57; Start 09/13/18 at 21:00 Bupropion HCl (Wellbutrin Xl) 150 mg DAILY PO Last administered on 10/23/18 09 :37; Start 09/17/18 at 09:00 Insulin Glargine (Lantus) 15 units QHS SQ Last administered on 10/23/18 21:53 ; Start 09/19/18 at 21:00 Olanzapine (ZyPREXA ZYDIS) 2.5 mg PRN Q2HR PRN PO PSYCHOSIS Last administered on 10/21/18 14:33; Start 09/22/18 at 12:00 Quetiapine Fumarate (SEROquel) 50 mg HS PO Last administered on 09/27/18at 21: 28; Start 09/22/18 at 21:00; Stop 09/28/18 at 19:49; Status DC Enoxaparin Sodium (Lovenox 40mg Syringe) 40 mg Q24H SQ Last administered on 21:51; Start 09/25/18 at 21:00 Duloxetine HCl (Cymbalta) 60 mg HS PO Last administered on 10/23/18 21:52; Start 09/29/18 at 21:00 Quetiapine Fumarate (SEROquel) 25 mg HS PO Last administered on 09/29/18at 20: 59; Start 09/28/18 at 21:00; Stop 09/30/18 at 17:23; Status DC Aripiprazole (Abilify) 2.5 mg QHS PO Last administered on 10/23/18 21:52; Start 09/30/18 at 21:00 Guaifenesin (Robitussin Dm) 10 ml PRN Q6HRS PRN PO COUGH Last administered on 19:11; Start 10/02/18 at 15:00 Nitrofurantoin Macrocrystals (Macrobid) 100 mg QHS PO Last administered on 10/23 21:51; Start 10/03/18 at 21:00 Cetirizine HCl (ZyrTEC) 10 mg DAILY PO Last administered on 10/23/18 09:37; Start 10/12/18 at 09:00 Docusate Sodium (Colace) 100 mg BID PO Last administered on 10/23/18 21:51; Start 10/18/18 at 21:00 Polyethylene Glycol (miraLAX) 17 gm DAILY PO Last administered on 10/23/18 09: 37; Start 10/19/18 at 09:00 Nystatin (Mycostatin) 5 ml QID SWSW Last administered on 10/23/18 21:52; Start 10/19/18 at 17:00 Active Scripts Active Reported Seroquel (Quetiapine Fumarate) 25 Mg Tablet 12.5 Mg PO DAILY16 Olanzapine 10 Mg Tablet 10 Mg PO PRN BID PRN Olanzapine Inj (Olanzapine) 10 Mg Vial 5 Mg IM PRN BID PRN Analgesic [place] (Methyl Salicylate/Menthol) 28 Gm Oint...g. 1 Frank TP PRN QID PRN Milk Of Magnesia (Magnesium Hydroxide) 2,400 Mg/10 Ml Oral.susp 2,400 Mg PO PRN QHS PRN Advanced Antacid Liquid (Mag Hydrox/Al Hydrox/Simeth) 355 Ml Oral.susp 15 Ml PO PRN AFTMEALHC PRN Culturelle (Lactobacillus Rhamnosus Gg) 1 Each Cap.sprink 1 Cap PO BID Humalog (Insulin Lispro) 100 Unit/1 Ml Cartridge 0-5 Unit SQ TIDWMEALS Gabapentin 100 Mg Capsule 100 Mg PO BID Cymbalta (Duloxetine Hcl) 60 Mg Capsule.dr 60 Mg PO DAILY Ciprofloxacin Hcl 500 Mg Tablet 500 Mg PO BID Venlafaxine Hcl Er (Venlafaxine Hcl) 150 Mg Tab.er.24 150 Mg PO DAILYWBKFT Quetiapine Fumarate 25 Mg Tablet 25 Mg PO DAILY Seroquel (Quetiapine Fumarate) 25 Mg Tablet 75 Mg PO QHS Namenda (Memantine Hcl) 10 Mg Tablet 10 Mg PO BID Lovastatin 40 Mg Tablet 80 Mg PO QHS Levothyroxine Sodium 100 Mcg Tablet 100 Mcg PO DAILYAC Keppra (Levetiracetam) 500 Mg Tablet 500 Mg PO BID Heparin 5,000 Unit/5 ml-Ns (Heparin Sod,Porcine/0.9 % NaCl) 5,000 Unit/5 Ml Syringe 5,000 Unit IM Q8HRS Vitamin D2 (Ergocalciferol (Vitamin D2)) 50,000 Unit Capsule 50,000 Unit PO WEEKLY Benazepril Hcl 20 Mg Tablet 20 Mg PO DAILY Aspirin 81 Mg Tab.chew 81 Mg PO DAILY Amlodipine Besylate 5 Mg Tablet 5 Mg PO DAILY Tylenol (Acetaminophen) 325 Mg Tablet 650 Mg PO PRN Q4HRS PRN I have reviewed the current psychotropics carefully including drug interactions. Risk benefit ratio favors no change other than as noted in my dictated progress note. Diagnosis: Problems: (1) Anxiety disorder (2) Mild cognitive disorder (3) Major depressive disorder, recurrent episode (4) Impulse control disorder ANTONIA BAILEY MD Oct 23, 2018 22:40
--- NOTE | 2018-10-23 22:43 | PN ---
DATE: 10/22/2018 PSYCHIATRIC PROGRESS NOTE This late entry 10/22/2018 covers elements, not covered in my initial note. SUBJECTIVE: I met with the patient in the evening. The patient slept 7-1/4 hours previous night. She remains somewhat withdrawn, but more awake, alert, interactive as I met with her in the evening. She does complain of pain in left shoulder. X-ray of left shoulder is being done. We will defer to Dr. Anguiano. REVIEW OF SYSTEMS: Ambulation impaired, in wheelchair. No CV, , pulmonary, eye system symptoms on review other than some pain, left shoulder. MENTAL STATUS EXAM: Oriented to herself and situation. Speech moderate latency, coherent, often responses monosyllabic. Abstraction fair, computation impaired, language function intact, attention span short. Mood and affect still somewhat withdrawn, but less so than before. LABORATORY DATA: Reviewed. 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 PLAN: Continue psychotropics from initial note. Social service staff is actively looking for placement and transition. ANTONIA BAILEY MD DR: RAYMON/christen JOB#: [id number] / [id number]
[2018-10-24 05:38] VITALS: BP 159/82
[2018-10-24] MEDS: LEVOTHYROXINE 100 MCG TABLET PO SCH (05:44)
[2018-10-24] MEDS: amLODIPine BESYLATE 5 MG TABLET PO SCH (08:53)
[2018-10-24] MEDS: ASPIRIN 81 MG TAB.CHEW PO SCH (08:53)
[2018-10-24] MEDS: buPROPion XL 150 MG TAB.ER.24H PO SCH (08:53)
[2018-10-24] MEDS: levETIRAcetam 500 MG TABLET PO SCH ×2 (08:53→20:02)
[2018-10-24] MEDS: LACTOBACILLUS RHAMNOSUS GG 1 CAPSULE. PO SCH ×2 (08:53→20:00)
[2018-10-24] MEDS: GABAPENTIN 100 MG CAPSULE. PO SCH ×3 (08:53→20:05)
[2018-10-24] MEDS: MEMANTINE 10 MG TABLET. PO SCH ×2 (08:53→20:00)
[2018-10-24] MEDS: DOCUSATE SODIUM 100 MG CAPSULE PO SCH ×2 (08:54→20:00)
[2018-10-24] MEDS: NYSTATIN 100,000 UNITS/ML ORAL SUSPENSION 60ML BOTTLE. SWSW SCH ×4 (08:54→20:03)
[2018-10-24] MEDS: LISINOPRIL 20 MG TABLET PO SCH (08:54)
[2018-10-24] MEDS: CETIRIZINE HCL 10 MG TABLET PO SCH (08:54)
[2018-10-24] MEDS: POLYETHYLENE GLYCOL 3350 17 GM PACKET. PO SCH (08:54)
[2018-10-24] MEDS: CHOLECALCIFEROL (VITAMIN D3) 50,000 UNIT CAPSULE PO SCH (08:55)
[2018-10-24] MEDS: INSULIN LISPRO 300 UNITS/3 ML INSULN.PEN. SQ SCH ×3 (08:57→18:53)
[2018-10-24 16:43] VITALS: BP 121/69
[2018-10-24] MEDS: DULoxetine HCL 60 MG CAPSULE.DR PO SCH (20:00)
[2018-10-24] MEDS: ATORVASTATIN CALCIUM 20 MG TABLET PO SCH (20:00)
[2018-10-24] MEDS: ENOXAPARIN 40 MG/0.4 ML SYRINGE. SQ SCH (20:02)
[2018-10-24] MEDS: ARIPiprazole 5 MG TABLET PO SCH (20:02)
[2018-10-24] MEDS: NITROFURANTOIN MONOHYD/M-CRYST 100 MG CAPSULE. PO SCH (20:05)
--- NOTE | 2018-10-24 22:54 | PDOC ---
Exam Note: José Miguel Note: Please also refer to the separate dictated note~for this date of service dictated separately.~Patient seen individually. Discussed the patient with Nursing staff reviewed the chart.~Reviewed interim history and current functioning. Reviewed vital signs,~Labs/ Radiology~and current medications noted below. Continue current treatment with the changes noted in the dictated addendum note Assessment: Vital Signs: Vital Signs Date Time Temp Pulse Resp B/P (MAP) Pulse Ox O2 Delivery O2 Flow Rate FiO2 10/24/18 16:43 98.0 74 19 121/69 (86) 96 10/22/18 05:48 Room Air I&O Intake and Output 10/24/18 07:01 Intake Total 1025 ml Balance 1025 ml Intake Oral 1025 ml # Bowel Movements 1 Labs: Laboratory Tests Test 10/24/18 11:44 10/24/18 17:11 10/24/18 19:13 Glucose (Fingerstick) 239 mg/dL (70-99) H 157 mg/dL (70-99) H 193 mg/dL (70-99) H Current Medications: Meds: Current Medications Acetaminophen (Tylenol) 650 mg PRN Q6HRS PRN PO PAIN / TEMP Last administered on 10/21/18 16:50; Start 08/08/18 at 20:00 Multi-Ingredient Ointment (Analgesic [place]) 1 frank PRN QID PRN TP MUSCLE PAIN Last administered on 10/22/18 09:36; Start 08/08/18 at 20:00 Al Hydroxide/Mg Hydroxide (Mylanta Plus Xs) 15 ml PRN AFTMEALHC PRN PO DYSPEPSIA; Start 08/08/18 at 20:00 Magnesium Hydroxide (Milk Of Magnesia) 2,400 mg PRN QHS PRN PO CONSTIPATION Last administered on 10/22/18 21:16; Start 08/08/18 at 20:00 Memantine (Namenda) 10 mg BID PO Last administered on 10/24/18 20:00; Start 08/08/18 at 22:00 Quetiapine Fumarate (SEROquel) 25 mg DAILY PO Last administered on 09/05/18at 08 :51; Start 08/09/18 at 09:00; Stop 09/05/18 at 11:58; Status DC Quetiapine Fumarate (SEROquel) 75 mg HS PO Last administered on 09/21/18at 20: 38; Start 08/08/18 at 22:00; Stop 09/22/18 at 18:49; Status DC Venlafaxine HCl (Effexor) 50 mg TID PO Last administered on 08/10/18at 13:40; Start 08/09/18 at 09:00; Stop 08/10/18 at 17:54; Status DC Acetaminophen (Tylenol) 650 mg PRN Q4HRS PRN PO PAIN / TEMP; Start 08/08/18 at 21:30; Status Cancel Levothyroxine Sodium (Synthroid) 100 mcg DAILY06 PO Last administered on 05:44; Start 08/09/18 at 06:00 Amlodipine Besylate (Norvasc) 5 mg DAILY PO Last administered on 10/24/18 08: 53; Start 08/09/18 at 09:00 Aspirin (Children'S Aspirin) 81 mg DAILY PO Last administered on 10/24/18 08: 53; Start 08/09/18 at 09:00 Lisinopril (Prinivil) 20 mg DAILY PO Last administered on 10/24/18 08:54; Start 08/09/18 at 09:00 Vitamin D (Vitamin D3) 50,000 unit WEEKLY PO Last administered on 10/24/18 08: 55; Start 08/15/18 at 09:00 Heparin Sodium (Porcine) (Heparin Sq) 5,000 unit Q8HRS SQ Last administered on 08/27/18at 22:37; Start 08/08/18 at 22:00; Stop 08/27/18 at 23:00; Status DC Levetiracetam (Keppra) 500 mg BID PO Last administered on 10/24/18 20:02; Start 08/08/18 at 22:00 Atorvastatin Calcium (Lipitor) 20 mg QHS PO Last administered on 10/24/18 20: 00; Start 08/09/18 at 21:00 Insulin Human Lispro (HumaLOG) 0-5 UNITS TIDWMEALS SQ Last administered on 09/05at 09:13; Start 08/09/18 at 08:00; Stop 09/05/18 at 14:16; Status DC Dextrose 12.5 gm PRN Q15MIN PRN IV SEE COMMENTS; Start 08/09/18 at 05:45; Stop 09/05/18 at 14:16; Status DC Duloxetine HCl (Cymbalta) 30 mg DAILY PO Last administered on 08/12/18at 08:06 ; Start 08/11/18 at 09:00; Stop 08/12/18 at 09:02; Status DC Duloxetine HCl (Cymbalta) 60 mg DAILY PO Last administered on 09/28/18at 08:28 ; Start 08/13/18 at 09:00; Stop 09/28/18 at 19:49; Status DC Cephalexin HCl (Keflex) 500 mg TID PO Last administered on 08/20/18at 19:28; Start 08/11/18 at 09:00; Stop 08/21/18 at 08:59; Status DC Lactobacillus Rhamnosus (Culturelle) 1 cap BID PO Last administered on at 20:00; Start 08/11/18 at 09:00 Levothyroxine Sodium (Synthroid) 100 mcg 1X ONCE PO Last administered on 08/15at 06:23; Start 08/15/18 at 06:30; Stop 08/15/18 at 06:31; Status DC Olanzapine (ZyPREXA ZYDIS) 10 mg PRN BID PRN PO AGITATION; Start 08/24/18 at 17:45; Stop 09/22/18 at 12:01; Status DC Olanzapine (ZyPREXA IM) 5 mg PRN BID PRN IM AGITATION Last administered on at 17:53; Start 08/24/18 at 17:45; Stop 09/22/18 at 12:01; Status DC Cefpodoxime Proxetil (Vantin) 200 mg BID PO Last administered on 08/27/18at 08: 28; Start 08/25/18 at 17:30; Stop 08/27/18 at 17:27; Status DC Gabapentin (Neurontin) 100 mg BID PO Last administered on 09/13/18at 09:05; Start 08/25/18 at 21:00; Stop 09/13/18 at 16:30; Status DC Quetiapine Fumarate (SEROquel) 12.5 mg DAILY16 PO Last administered on at 16:29; Start 08/27/18 at 16:00; Stop 09/16/18 at 16:52; Status DC Heparin Sodium (Porcine) (Heparin Sodium) 5,000 unit Q8HRS SQ Last administered on 09/25/18at 13:45; Start 08/28/18 at 06:00; Stop 09/25/18 at 18 :16; Status DC Ciprofloxacin (Cipro) 500 mg BID PO Last administered on 09/06/18at 08:09; Start 08/27/18 at 21:00; Stop 09/06/18 at 20:59; Status DC Insulin Human Lispro (HumaLOG) 0-9 UNITS TIDWMEALS SQ Last administered on 10/24 18:53; Start 09/05/18 at 17:00 Dextrose 12.5 gm PRN Q15MIN PRN IV SEE COMMENTS; Start 09/05/18 at 14:15 Gabapentin (Neurontin) 200 mg TID PO Last administered on 10/24/18 20:05; Start 09/13/18 at 21:00 Bupropion HCl (Wellbutrin Xl) 150 mg DAILY PO Last administered on 10/24/18 08 :53; Start 09/17/18 at 09:00 Insulin Glargine (Lantus) 15 units QHS SQ Last administered on 10/23/18 21:53 ; Start 09/19/18 at 21:00 Olanzapine (ZyPREXA ZYDIS) 2.5 mg PRN Q2HR PRN PO PSYCHOSIS Last administered on 10/21/18 14:33; Start 09/22/18 at 12:00 Quetiapine Fumarate (SEROquel) 50 mg HS PO Last administered on 09/27/18at 21: 28; Start 09/22/18 at 21:00; Stop 09/28/18 at 19:49; Status DC Enoxaparin Sodium (Lovenox 40mg Syringe) 40 mg Q24H SQ Last administered on 20:02; Start 09/25/18 at 21:00 Duloxetine HCl (Cymbalta) 60 mg HS PO Last administered on 10/24/18 20:00; Start 09/29/18 at 21:00 Quetiapine Fumarate (SEROquel) 25 mg HS PO Last administered on 09/29/18at 20: 59; Start 09/28/18 at 21:00; Stop 09/30/18 at 17:23; Status DC Aripiprazole (Abilify) 2.5 mg QHS PO Last administered on 10/24/18 20:02; Start 09/30/18 at 21:00 Guaifenesin (Robitussin Dm) 10 ml PRN Q6HRS PRN PO COUGH Last administered on 19:11; Start 10/02/18 at 15:00 Nitrofurantoin Macrocrystals (Macrobid) 100 mg QHS PO Last administered on 10/24 20:05; Start 10/03/18 at 21:00 Cetirizine HCl (ZyrTEC) 10 mg DAILY PO Last administered on 10/24/18 08:54; Start 10/12/18 at 09:00 Docusate Sodium (Colace) 100 mg BID PO Last administered on 10/24/18 20:00; Start 10/18/18 at 21:00 Polyethylene Glycol (miraLAX) 17 gm DAILY PO Last administered on 10/24/18 08: 54; Start 10/19/18 at 09:00 Nystatin (Mycostatin) 5 ml QID SWSW Last administered on 10/24/18 20:03; Start 10/19/18 at 17:00 Active Scripts Active Reported Seroquel (Quetiapine Fumarate) 25 Mg Tablet 12.5 Mg PO DAILY16 Olanzapine 10 Mg Tablet 10 Mg PO PRN BID PRN Olanzapine Inj (Olanzapine) 10 Mg Vial 5 Mg IM PRN BID PRN Analgesic [place] (Methyl Salicylate/Menthol) 28 Gm Oint...g. 1 Frank TP PRN QID PRN Milk Of Magnesia (Magnesium Hydroxide) 2,400 Mg/10 Ml Oral.susp 2,400 Mg PO PRN QHS PRN Advanced Antacid Liquid (Mag Hydrox/Al Hydrox/Simeth) 355 Ml Oral.susp 15 Ml PO PRN AFTMEALHC PRN Culturelle (Lactobacillus Rhamnosus Gg) 1 Each Cap.sprink 1 Cap PO BID Humalog (Insulin Lispro) 100 Unit/1 Ml Cartridge 0-5 Unit SQ TIDWMEALS Gabapentin 100 Mg Capsule 100 Mg PO BID Cymbalta (Duloxetine Hcl) 60 Mg Capsule.dr 60 Mg PO DAILY Ciprofloxacin Hcl 500 Mg Tablet 500 Mg PO BID Venlafaxine Hcl Er (Venlafaxine Hcl) 150 Mg Tab.er.24 150 Mg PO DAILYWBKFT Quetiapine Fumarate 25 Mg Tablet 25 Mg PO DAILY Seroquel (Quetiapine Fumarate) 25 Mg Tablet 75 Mg PO QHS Namenda (Memantine Hcl) 10 Mg Tablet 10 Mg PO BID Lovastatin 40 Mg Tablet 80 Mg PO QHS Levothyroxine Sodium 100 Mcg Tablet 100 Mcg PO DAILYAC Keppra (Levetiracetam) 500 Mg Tablet 500 Mg PO BID Heparin 5,000 Unit/5 ml-Ns (Heparin Sod,Porcine/0.9 % NaCl) 5,000 Unit/5 Ml Syringe 5,000 Unit IM Q8HRS Vitamin D2 (Ergocalciferol (Vitamin D2)) 50,000 Unit Capsule 50,000 Unit PO WEEKLY Benazepril Hcl 20 Mg Tablet 20 Mg PO DAILY Aspirin 81 Mg Tab.chew 81 Mg PO DAILY Amlodipine Besylate 5 Mg Tablet 5 Mg PO DAILY Tylenol (Acetaminophen) 325 Mg Tablet 650 Mg PO PRN Q4HRS PRN I have reviewed the current psychotropics carefully including drug interactions. Risk benefit ratio favors no change other than as noted in my dictated progress note. Diagnosis: Problems: (1) Anxiety disorder (2) Mild cognitive disorder (3) Major depressive disorder, recurrent episode (4) Impulse control disorder ANTONIA BAILEY MD Oct 24, 2018 22:54
[2018-10-24] MEDS: INSULIN GLARGINE 300 UNITS/3 ML INSULN.PEN. SQ SCH (23:37)
[2018-10-25 06:02] VITALS: BP 149/89
[2018-10-25] MEDS: LEVOTHYROXINE 100 MCG TABLET PO SCH (06:16)
[2018-10-25 07:00] LABS: BASO % 1 % (0-3); EOS # 0.2 x10^3/uL (0.0-0.7); EOS % 4 % (0-3); HEMATOCRIT 34.6 % (36.0-47.0); HEMOGLOBIN 11.9 g/dL (12.0-15.5); LYMPH # 2.1 x10^3/uL (1.0-4.8); LYMPH % 42 % (24-48); MEAN CORPUSCULAR HEMOGLOBIN 32 pg (25-35); MEAN CORPUSCULAR HGB CONC 34 g/dL (31-37); MEAN CORPUSCULAR VOLUME 94 fL (79-100); MONO # 0.3 x10^3/uL (0.0-1.1); MONO % 6 % (0-9); NEUT # 2.3 x10^3uL (1.8-7.7); NEUT % 47 % (31-73); PLATELET COUNT 247 x10^3/uL (140-400); RED CELL DISTRIBUTION WIDTH 14.6 % (11.5-14.5); WHITE BLOOD COUNT 4.9 x10^3/uL (4.0-11.0)
[2018-10-25 07:22] LABS: ALBUMIN 3.4 g/dL (3.4-5.0); ALBUMIN/GLOBULIN RATIO 0.8 (1.0-1.7); CALCIUM 9.2 mg/dL (8.5-10.1); CREATININE 0.8 mg/dL (0.6-1.0); GFR 69.9; POTASSIUM 4.1 mmol/L (3.5-5.1); TOTAL BILIRUBIN 0.3 mg/dL (0.2-1.0); TOTAL PROTEIN 7.8 g/dL (6.4-8.2)
[2018-10-25] MEDS: INSULIN LISPRO 300 UNITS/3 ML INSULN.PEN. SQ SCH ×3 (08:00→18:45)
[2018-10-25] MEDS: MEMANTINE 10 MG TABLET. PO SCH ×2 (09:22→20:05)
[2018-10-25] MEDS: DOCUSATE SODIUM 100 MG CAPSULE PO SCH ×2 (09:22→20:05)
[2018-10-25] MEDS: LACTOBACILLUS RHAMNOSUS GG 1 CAPSULE. PO SCH ×2 (09:22→20:05)
[2018-10-25] MEDS: buPROPion XL 150 MG TAB.ER.24H PO SCH (09:23)
[2018-10-25] MEDS: CETIRIZINE HCL 10 MG TABLET PO SCH (09:23)
[2018-10-25] MEDS: LISINOPRIL 20 MG TABLET PO SCH (09:23)
[2018-10-25] MEDS: amLODIPine BESYLATE 5 MG TABLET PO SCH (09:23)
[2018-10-25] MEDS: levETIRAcetam 500 MG TABLET PO SCH ×2 (09:23→20:05)
[2018-10-25] MEDS: ASPIRIN 81 MG TAB.CHEW PO SCH (09:23)
[2018-10-25] MEDS: POLYETHYLENE GLYCOL 3350 17 GM PACKET. PO SCH (09:23)
[2018-10-25] MEDS: NYSTATIN 100,000 UNITS/ML ORAL SUSPENSION 60ML BOTTLE. SWSW SCH ×4 (09:24→20:08)
[2018-10-25] MEDS: GABAPENTIN 100 MG CAPSULE. PO SCH ×3 (09:25→20:06)
--- NOTE | 2018-10-25 15:56 | PN ---
DATE: 10/23/2018 This is a late entry 10/23/2018, covers elements not covered in my initial note. SUBJECTIVE: I met with the patient in the evening. The patient slept 7-1/4 hours previous night. Little more awake, alert, less sedated, attending groups. REVIEW OF SYSTEMS: Ambulation impaired, in wheelchair. No CV, , pulmonary, eye, ENT system symptoms on review. Reliability varies. MENTAL STATUS EXAM: Oriented to herself and situation. Speech has some latency, coherent. Abstraction fair, computation impaired, language function intact, attention span short. Mood and affect less depressed. LABORATORY DATA: Reviewed. IMPRESSION: Major depressive disorder with psychotic features in partial remission. Rest unchanged. PLAN: Continue psychotropics from initial note. Wellbutrin, Abilify, Namenda, Keppra for her seizures, Cymbalta and Zyprexa p.r.n. MAN Han BAILEY MD DR: RAYMON/christen JOB#: [id number] / [id number]
[2018-10-25 16:58] VITALS: BP 132/72
[2018-10-25] MEDS: NITROFURANTOIN MONOHYD/M-CRYST 100 MG CAPSULE. PO SCH (20:05)
[2018-10-25] MEDS: ARIPiprazole 5 MG TABLET PO SCH (20:05)
[2018-10-25] MEDS: ATORVASTATIN CALCIUM 20 MG TABLET PO SCH (20:05)
[2018-10-25] MEDS: DULoxetine HCL 60 MG CAPSULE.DR PO SCH (20:05)
[2018-10-25] MEDS: ENOXAPARIN 40 MG/0.4 ML SYRINGE. SQ SCH (20:08)
[2018-10-25] MEDS: INSULIN GLARGINE 300 UNITS/3 ML INSULN.PEN. SQ SCH (20:11)
--- NOTE | 2018-10-25 22:41 | PDOC ---
Exam Note: José Miguel Note: Please also refer to the separate dictated note~for this date of service dictated separately.~Patient seen individually. Discussed the patient with Nursing staff reviewed the chart.~Reviewed interim history and current functioning. Reviewed vital signs,~Labs/ Radiology~and current medications noted below. Continue current treatment with the changes noted in the dictated addendum note Assessment: Vital Signs: Vital Signs Date Time Temp Pulse Resp B/P (MAP) Pulse Ox O2 Delivery O2 Flow Rate FiO2 10/25/18 16:58 97.1 73 18 132/72 (92) 100 Room Air I&O Intake and Output 10/25/18 07:01 Intake Total 960 ml Balance 960 ml Intake Oral 960 ml Labs: Laboratory Tests Test 10/25/18 06:45 10/25/18 07:15 10/25/18 11:56 10/25/18 17:41 White Blood Count 4.9 x10^3/uL (4.0-11.0) Red Blood Count 3.70 x10^6/uL (3.50-5.40) Hemoglobin 11.9 g/dL (12.0-15.5) L Hematocrit 34.6 % (36.0-47.0) L Mean Corpuscular Volume 94 fL (79-100) Mean Corpuscular Hemoglobin 32 pg (25-35) Mean Corpuscular Hemoglobin Concent 34 g/dL (31-37) Red Cell Distribution Width 14.6 % (11.5-14.5) H Platelet Count 247 x10^3/uL (140-400) Neutrophils (%) (Auto) 47 % (31-73) Lymphocytes (%) (Auto) 42 % (24-48) Monocytes (%) (Auto) 6 % (0-9) Eosinophils (%) (Auto) 4 % (0-3) H Basophils (%) (Auto) 1 % (0-3) Neutrophils # (Auto) 2.3 x10^3uL (1.8-7.7) Lymphocytes # (Auto) 2.1 x10^3/uL (1.0-4.8) Monocytes # (Auto) 0.3 x10^3/uL (0.0-1.1) Eosinophils # (Auto) 0.2 x10^3/uL (0.0-0.7) Basophils # (Auto) 0.0 x10^3/uL (0.0-0.2) Sodium Level 139 mmol/L (136-145) Potassium Level 4.1 mmol/L (3.5-5.1) Chloride Level 101 mmol/L (98-107) Carbon Dioxide Level 31 mmol/L (21-32) Anion Gap 7 (6-14) Blood Urea Nitrogen 15 mg/dL (7-20) Creatinine 0.8 mg/dL (0.6-1.0) Estimated GFR (Cockcroft-Gault) 69.9 BUN/Creatinine Ratio 19 (6-20) Glucose Level 125 mg/dL (70-99) H Calcium Level 9.2 mg/dL (8.5-10.1) Total Bilirubin 0.3 mg/dL (0.2-1.0) Aspartate Amino Transferase (AST) 13 U/L (15-37) L Alanine Aminotransferase (ALT) 16 U/L (14-59) Alkaline Phosphatase 107 U/L (46-116) Total Protein 7.8 g/dL (6.4-8.2) Albumin 3.4 g/dL (3.4-5.0) Albumin/Globulin Ratio 0.8 (1.0-1.7) L Glucose (Fingerstick) 139 mg/dL (70-99) H 231 mg/dL (70-99) H 190 mg/dL (70-99) H Test 10/25/18 19:08 Glucose (Fingerstick) 159 mg/dL (70-99) H Current Medications: Meds: Current Medications Acetaminophen (Tylenol) 650 mg PRN Q6HRS PRN PO PAIN / TEMP Last administered on 10/21/18at 16:50; Start 08/08/18 at 20:00 Multi-Ingredient Ointment (Analgesic [place]) 1 frank PRN QID PRN TP MUSCLE PAIN Last administered on 10/22/18at 09:36; Start 08/08/18 at 20:00 Al Hydroxide/Mg Hydroxide (Mylanta Plus Xs) 15 ml PRN AFTMEALHC PRN PO DYSPEPSIA; Start 08/08/18 at 20:00 Magnesium Hydroxide (Milk Of Magnesia) 2,400 mg PRN QHS PRN PO CONSTIPATION Last administered on 10/22/18at 21:16; Start 08/08/18 at 20:00 Memantine (Namenda) 10 mg BID PO Last administered on 10/25/18 20:05; Start 08/08/18 at 22:00 Quetiapine Fumarate (SEROquel) 25 mg DAILY PO Last administered on 09/05/18at 08 :51; Start 08/09/18 at 09:00; Stop 09/05/18 at 11:58; Status DC Quetiapine Fumarate (SEROquel) 75 mg HS PO Last administered on 09/21/18at 20: 38; Start 08/08/18 at 22:00; Stop 09/22/18 at 18:49; Status DC Venlafaxine HCl (Effexor) 50 mg TID PO Last administered on 08/10/18at 13:40; Start 08/09/18 at 09:00; Stop 08/10/18 at 17:54; Status DC Acetaminophen (Tylenol) 650 mg PRN Q4HRS PRN PO PAIN / TEMP; Start 08/08/18 at 21:30; Status Cancel Levothyroxine Sodium (Synthroid) 100 mcg DAILY06 PO Last administered on 06:16; Start 08/09/18 at 06:00 Amlodipine Besylate (Norvasc) 5 mg DAILY PO Last administered on 10/25/18 09: 23; Start 08/09/18 at 09:00 Aspirin (Children'S Aspirin) 81 mg DAILY PO Last administered on 10/25/18 09: 23; Start 08/09/18 at 09:00 Lisinopril (Prinivil) 20 mg DAILY PO Last administered on 10/25/18 09:23; Start 08/09/18 at 09:00 Vitamin D (Vitamin D3) 50,000 unit WEEKLY PO Last administered on 10/24/18 08: 55; Start 08/15/18 at 09:00 Heparin Sodium (Porcine) (Heparin Sq) 5,000 unit Q8HRS SQ Last administered on 08/27/18at 22:37; Start 08/08/18 at 22:00; Stop 08/27/18 at 23:00; Status DC Levetiracetam (Keppra) 500 mg BID PO Last administered on 10/25/18 20:05; Start 08/08/18 at 22:00 Atorvastatin Calcium (Lipitor) 20 mg QHS PO Last administered on 10/25/18at 20: 05; Start 08/09/18 at 21:00 Insulin Human Lispro (HumaLOG) 0-5 UNITS TIDWMEALS SQ Last administered on 09/05at 09:13; Start 08/09/18 at 08:00; Stop 09/05/18 at 14:16; Status DC Dextrose 12.5 gm PRN Q15MIN PRN IV SEE COMMENTS; Start 08/09/18 at 05:45; Stop 09/05/18 at 14:16; Status DC Duloxetine HCl (Cymbalta) 30 mg DAILY PO Last administered on 08/12/18at 08:06 ; Start 08/11/18 at 09:00; Stop 08/12/18 at 09:02; Status DC Duloxetine HCl (Cymbalta) 60 mg DAILY PO Last administered on 09/28/18at 08:28 ; Start 08/13/18 at 09:00; Stop 09/28/18 at 19:49; Status DC Cephalexin HCl (Keflex) 500 mg TID PO Last administered on 08/20/18at 19:28; Start 08/11/18 at 09:00; Stop 08/21/18 at 08:59; Status DC Lactobacillus Rhamnosus (Culturelle) 1 cap BID PO Last administered on at 20:05; Start 08/11/18 at 09:00 Levothyroxine Sodium (Synthroid) 100 mcg 1X ONCE PO Last administered on 08/15at 06:23; Start 08/15/18 at 06:30; Stop 08/15/18 at 06:31; Status DC Olanzapine (ZyPREXA ZYDIS) 10 mg PRN BID PRN PO AGITATION; Start 08/24/18 at 17:45; Stop 09/22/18 at 12:01; Status DC Olanzapine (ZyPREXA IM) 5 mg PRN BID PRN IM AGITATION Last administered on at 17:53; Start 08/24/18 at 17:45; Stop 09/22/18 at 12:01; Status DC Cefpodoxime Proxetil (Vantin) 200 mg BID PO Last administered on 08/27/18at 08: 28; Start 08/25/18 at 17:30; Stop 08/27/18 at 17:27; Status DC Gabapentin (Neurontin) 100 mg BID PO Last administered on 09/13/18at 09:05; Start 08/25/18 at 21:00; Stop 09/13/18 at 16:30; Status DC Quetiapine Fumarate (SEROquel) 12.5 mg DAILY16 PO Last administered on at 16:29; Start 08/27/18 at 16:00; Stop 09/16/18 at 16:52; Status DC Heparin Sodium (Porcine) (Heparin Sodium) 5,000 unit Q8HRS SQ Last administered on 09/25/18at 13:45; Start 08/28/18 at 06:00; Stop 09/25/18 at 18 :16; Status DC Ciprofloxacin (Cipro) 500 mg BID PO Last administered on 09/06/18at 08:09; Start 08/27/18 at 21:00; Stop 09/06/18 at 20:59; Status DC Insulin Human Lispro (HumaLOG) 0-9 UNITS TIDWMEALS SQ Last administered on 10/25at 18:45; Start 09/05/18 at 17:00 Dextrose 12.5 gm PRN Q15MIN PRN IV SEE COMMENTS; Start 09/05/18 at 14:15 Gabapentin (Neurontin) 200 mg TID PO Last administered on 10/25/18 20:06; Start 09/13/18 at 21:00 Bupropion HCl (Wellbutrin Xl) 150 mg DAILY PO Last administered on 10/25/18 09 :23; Start 09/17/18 at 09:00 Insulin Glargine (Lantus) 15 units QHS SQ Last administered on 10/25/18 20:11 ; Start 09/19/18 at 21:00 Olanzapine (ZyPREXA ZYDIS) 2.5 mg PRN Q2HR PRN PO PSYCHOSIS Last administered on 10/21/18 14:33; Start 09/22/18 at 12:00 Quetiapine Fumarate (SEROquel) 50 mg HS PO Last administered on 09/27/18at 21: 28; Start 09/22/18 at 21:00; Stop 09/28/18 at 19:49; Status DC Enoxaparin Sodium (Lovenox 40mg Syringe) 40 mg Q24H SQ Last administered on 20:08; Start 09/25/18 at 21:00 Duloxetine HCl (Cymbalta) 60 mg HS PO Last administered on 10/25/18 20:05; Start 09/29/18 at 21:00 Quetiapine Fumarate (SEROquel) 25 mg HS PO Last administered on 09/29/18at 20: 59; Start 09/28/18 at 21:00; Stop 09/30/18 at 17:23; Status DC Aripiprazole (Abilify) 2.5 mg QHS PO Last administered on 10/25/18 20:05; Start 09/30/18 at 21:00 Guaifenesin (Robitussin Dm) 10 ml PRN Q6HRS PRN PO COUGH Last administered on 19:11; Start 10/02/18 at 15:00 Nitrofurantoin Macrocrystals (Macrobid) 100 mg QHS PO Last administered on 10/25 20:05; Start 10/03/18 at 21:00 Cetirizine HCl (ZyrTEC) 10 mg DAILY PO Last administered on 10/25/18 09:23; Start 10/12/18 at 09:00 Docusate Sodium (Colace) 100 mg BID PO Last administered on 10/25/18 20:05; Start 10/18/18 at 21:00 Polyethylene Glycol (miraLAX) 17 gm DAILY PO Last administered on 10/25/18 09: 23; Start 10/19/18 at 09:00 Nystatin (Mycostatin) 5 ml QID SWSW Last administered on 10/25/18 20:08; Start 10/19/18 at 17:00 Active Scripts Active Reported Seroquel (Quetiapine Fumarate) 25 Mg Tablet 12.5 Mg PO DAILY16 Olanzapine 10 Mg Tablet 10 Mg PO PRN BID PRN Olanzapine Inj (Olanzapine) 10 Mg Vial 5 Mg IM PRN BID PRN Analgesic [place] (Methyl Salicylate/Menthol) 28 Gm Oint...g. 1 Frank TP PRN QID PRN Milk Of Magnesia (Magnesium Hydroxide) 2,400 Mg/10 Ml Oral.susp 2,400 Mg PO PRN QHS PRN Advanced Antacid Liquid (Mag Hydrox/Al Hydrox/Simeth) 355 Ml Oral.susp 15 Ml PO PRN AFTMEALHC PRN Culturelle (Lactobacillus Rhamnosus Gg) 1 Each Cap.sprink 1 Cap PO BID Humalog (Insulin Lispro) 100 Unit/1 Ml Cartridge 0-5 Unit SQ TIDWMEALS Gabapentin 100 Mg Capsule 100 Mg PO BID Cymbalta (Duloxetine Hcl) 60 Mg Capsule.dr 60 Mg PO DAILY Ciprofloxacin Hcl 500 Mg Tablet 500 Mg PO BID Venlafaxine Hcl Er (Venlafaxine Hcl) 150 Mg Tab.er.24 150 Mg PO DAILYWBKFT Quetiapine Fumarate 25 Mg Tablet 25 Mg PO DAILY Seroquel (Quetiapine Fumarate) 25 Mg Tablet 75 Mg PO QHS Namenda (Memantine Hcl) 10 Mg Tablet 10 Mg PO BID Lovastatin 40 Mg Tablet 80 Mg PO QHS Levothyroxine Sodium 100 Mcg Tablet 100 Mcg PO DAILYAC Keppra (Levetiracetam) 500 Mg Tablet 500 Mg PO BID Heparin 5,000 Unit/5 ml-Ns (Heparin Sod,Porcine/0.9 % NaCl) 5,000 Unit/5 Ml Syringe 5,000 Unit IM Q8HRS Vitamin D2 (Ergocalciferol (Vitamin D2)) 50,000 Unit Capsule 50,000 Unit PO WEEKLY Benazepril Hcl 20 Mg Tablet 20 Mg PO DAILY Aspirin 81 Mg Tab.chew 81 Mg PO DAILY Amlodipine Besylate 5 Mg Tablet 5 Mg PO DAILY Tylenol (Acetaminophen) 325 Mg Tablet 650 Mg PO PRN Q4HRS PRN I have reviewed the current psychotropics carefully including drug interactions. Risk benefit ratio favors no change other than as noted in my dictated progress note. Diagnosis: Problems: (1) Anxiety disorder (2) Mild cognitive disorder (3) Major depressive disorder, recurrent episode (4) Impulse control disorder ANTONIA BAILEY MD Oct 25, 2018 22:41
[2018-10-25] MEDS: ACETAMINOPHEN 325 MG TABLET PO PRN (22:52)
[2018-10-25] MEDS: METHYL SALICYLATE/MENTHOL TOPICAL OINTMENT 29GM TUBE. TP PRN (22:52)
--- NOTE | 2018-10-25 22:56 | PN ---
DATE: 10/24/2018 PSYCHIATRIC PROGRESS NOTE This late entry of 10/24/2018 covers elements not covered in my initial note. SUBJECTIVE: I met with the patient in the evening and staffed at treatment team meeting with the entire team in the morning. Reviewed her history at length. She is doing a little better, sleeping better, less withdrawn. REVIEW OF SYSTEMS: Ambulation impaired, in wheelchair. No CV, , pulmonary, eye system symptoms on review. MENTAL STATUS EXAM: Oriented to herself and situation. Speech has some latency, coherent, but she was smiling and more animated as I met with her. Attention span short. Language function intact. Mood and affect improved. No psychotic symptoms, suicidal or homicidal ideation. LABORATORY DATA: Reviewed. IMPRESSION: Major depressive disorder with psychotic features, in partial remission; cognitive disorder, unspecified. Rest unchanged. PLAN: Continue psychotropics from initial note for now. MAN Han BAILEY MD DR: RAYMON/christen JOB#: [id number] / [id number]
[2018-10-25] MEDS ORDERED: NITROGLYCERIN SUBLINGUAL 0.4 MG BOTTLE OF 25. SL PRN (23:15)
[2018-10-25 23:52] VITALS: BP 109/70
[2018-10-26 00:30] VITALS: BP 118/74
[2018-10-26 02:05] VITALS: BP 147/85
[2018-10-26] MEDS: LEVOTHYROXINE 100 MCG TABLET PO SCH (05:58)
[2018-10-26 06:30] VITALS: BP 120/76
[2018-10-26] MEDS: INSULIN LISPRO 300 UNITS/3 ML INSULN.PEN. SQ SCH ×3 (07:36→17:31)
[2018-10-26] MEDS: levETIRAcetam 500 MG TABLET PO SCH ×2 (08:21→20:36)
[2018-10-26] MEDS: POLYETHYLENE GLYCOL 3350 17 GM PACKET. PO SCH (08:21)
[2018-10-26] MEDS: DOCUSATE SODIUM 100 MG CAPSULE PO SCH ×2 (08:21→20:36)
[2018-10-26] MEDS: ASPIRIN 81 MG TAB.CHEW PO SCH (08:21)
[2018-10-26] MEDS: LACTOBACILLUS RHAMNOSUS GG 1 CAPSULE. PO SCH ×2 (08:21→20:36)
[2018-10-26] MEDS: MEMANTINE 10 MG TABLET. PO SCH ×2 (08:22→20:35)
[2018-10-26] MEDS: amLODIPine BESYLATE 5 MG TABLET PO SCH (08:23)
[2018-10-26] MEDS: GABAPENTIN 100 MG CAPSULE. PO SCH ×3 (08:23→20:36)
[2018-10-26] MEDS: buPROPion XL 150 MG TAB.ER.24H PO SCH (08:24)
[2018-10-26] MEDS: LISINOPRIL 20 MG TABLET PO SCH (08:24)
[2018-10-26] MEDS: CETIRIZINE HCL 10 MG TABLET PO SCH (08:24)
[2018-10-26] MEDS: NYSTATIN 100,000 UNITS/ML ORAL SUSPENSION 60ML BOTTLE. SWSW SCH ×4 (08:26→20:47)
[2018-10-26 15:54] VITALS: BP 115/75
[2018-10-26] MEDS: NITROFURANTOIN MONOHYD/M-CRYST 100 MG CAPSULE. PO SCH (20:35)
[2018-10-26] MEDS: ENOXAPARIN 40 MG/0.4 ML SYRINGE. SQ SCH (20:35)
[2018-10-26] MEDS: DULoxetine HCL 60 MG CAPSULE.DR PO SCH (20:36)
[2018-10-26] MEDS: ARIPiprazole 5 MG TABLET PO SCH (20:36)
[2018-10-26] MEDS: ATORVASTATIN CALCIUM 20 MG TABLET PO SCH (20:36)
[2018-10-26] MEDS: INSULIN GLARGINE 300 UNITS/3 ML INSULN.PEN. SQ SCH (20:49)
--- NOTE | 2018-10-26 22:20 | PDOC ---
Exam Note: José Miguel Note: Please also refer to the separate dictated note~for this date of service dictated separately.~Patient seen individually. Discussed the patient with Nursing staff reviewed the chart.~Reviewed interim history and current functioning. Reviewed vital signs,~Labs/ Radiology~and current medications noted below. Continue current treatment with the changes noted in the dictated addendum note Assessment: Vital Signs: Vital Signs Date Time Temp Pulse Resp B/P (MAP) Pulse Ox O2 Delivery O2 Flow Rate FiO2 10/26/18 15:54 97.2 76 20 115/75 (88) 98 10/25/18 16:58 Room Air I&O Intake and Output 10/26/18 07:01 Intake Total 1200 ml Balance 1200 ml Intake Oral 1200 ml Labs: Laboratory Tests Test 10/25/18 22:30 10/26/18 07:05 10/26/18 11:43 10/26/18 17:24 Creatine Kinase 32 U/L (26-192) Troponin I Quantitative < 0.017 ng/mL (0-0.055) Glucose (Fingerstick) 152 mg/dL (70-99) H 240 mg/dL (70-99) H 153 mg/dL (70-99) H Test 10/26/18 19:22 Glucose (Fingerstick) 167 mg/dL (70-99) H Current Medications: Meds: Current Medications Acetaminophen (Tylenol) 650 mg PRN Q6HRS PRN PO PAIN / TEMP Last administered on 10/25/18 22:52; Start 08/08/18 at 20:00 Multi-Ingredient Ointment (Analgesic [place]) 1 frank PRN QID PRN TP MUSCLE PAIN Last administered on 10/25/18 22:52; Start 08/08/18 at 20:00 Al Hydroxide/Mg Hydroxide (Mylanta Plus Xs) 15 ml PRN AFTMEALHC PRN PO DYSPEPSIA; Start 08/08/18 at 20:00 Magnesium Hydroxide (Milk Of Magnesia) 2,400 mg PRN QHS PRN PO CONSTIPATION Last administered on 10/22/18 21:16; Start 08/08/18 at 20:00 Memantine (Namenda) 10 mg BID PO Last administered on 10/26/18 20:35; Start 08/08/18 at 22:00 Quetiapine Fumarate (SEROquel) 25 mg DAILY PO Last administered on 09/05/18at 08 :51; Start 08/09/18 at 09:00; Stop 09/05/18 at 11:58; Status DC Quetiapine Fumarate (SEROquel) 75 mg HS PO Last administered on 09/21/18at 20: 38; Start 08/08/18 at 22:00; Stop 09/22/18 at 18:49; Status DC Venlafaxine HCl (Effexor) 50 mg TID PO Last administered on 08/10/18at 13:40; Start 08/09/18 at 09:00; Stop 08/10/18 at 17:54; Status DC Acetaminophen (Tylenol) 650 mg PRN Q4HRS PRN PO PAIN / TEMP; Start 08/08/18 at 21:30; Status Cancel Levothyroxine Sodium (Synthroid) 100 mcg DAILY06 PO Last administered on 05:58; Start 08/09/18 at 06:00 Amlodipine Besylate (Norvasc) 5 mg DAILY PO Last administered on 10/26/18 08: 23; Start 08/09/18 at 09:00 Aspirin (Children'S Aspirin) 81 mg DAILY PO Last administered on 10/26/18 08: 21; Start 08/09/18 at 09:00 Lisinopril (Prinivil) 20 mg DAILY PO Last administered on 10/26/18 08:24; Start 08/09/18 at 09:00 Vitamin D (Vitamin D3) 50,000 unit WEEKLY PO Last administered on 10/24/18 08: 55; Start 08/15/18 at 09:00 Heparin Sodium (Porcine) (Heparin Sq) 5,000 unit Q8HRS SQ Last administered on 08/27/18at 22:37; Start 08/08/18 at 22:00; Stop 08/27/18 at 23:00; Status DC Levetiracetam (Keppra) 500 mg BID PO Last administered on 10/26/18 20:36; Start 08/08/18 at 22:00 Atorvastatin Calcium (Lipitor) 20 mg QHS PO Last administered on 10/26/18 20: 36; Start 08/09/18 at 21:00 Insulin Human Lispro (HumaLOG) 0-5 UNITS TIDWMEALS SQ Last administered on 09/05at 09:13; Start 08/09/18 at 08:00; Stop 09/05/18 at 14:16; Status DC Dextrose 12.5 gm PRN Q15MIN PRN IV SEE COMMENTS; Start 08/09/18 at 05:45; Stop 09/05/18 at 14:16; Status DC Duloxetine HCl (Cymbalta) 30 mg DAILY PO Last administered on 08/12/18at 08:06 ; Start 08/11/18 at 09:00; Stop 08/12/18 at 09:02; Status DC Duloxetine HCl (Cymbalta) 60 mg DAILY PO Last administered on 09/28/18at 08:28 ; Start 08/13/18 at 09:00; Stop 09/28/18 at 19:49; Status DC Cephalexin HCl (Keflex) 500 mg TID PO Last administered on 08/20/18at 19:28; Start 08/11/18 at 09:00; Stop 08/21/18 at 08:59; Status DC Lactobacillus Rhamnosus (Culturelle) 1 cap BID PO Last administered on at 20:36; Start 08/11/18 at 09:00 Levothyroxine Sodium (Synthroid) 100 mcg 1X ONCE PO Last administered on 08/15at 06:23; Start 08/15/18 at 06:30; Stop 08/15/18 at 06:31; Status DC Olanzapine (ZyPREXA ZYDIS) 10 mg PRN BID PRN PO AGITATION; Start 08/24/18 at 17:45; Stop 09/22/18 at 12:01; Status DC Olanzapine (ZyPREXA IM) 5 mg PRN BID PRN IM AGITATION Last administered on at 17:53; Start 08/24/18 at 17:45; Stop 09/22/18 at 12:01; Status DC Cefpodoxime Proxetil (Vantin) 200 mg BID PO Last administered on 08/27/18at 08: 28; Start 08/25/18 at 17:30; Stop 08/27/18 at 17:27; Status DC Gabapentin (Neurontin) 100 mg BID PO Last administered on 09/13/18at 09:05; Start 08/25/18 at 21:00; Stop 09/13/18 at 16:30; Status DC Quetiapine Fumarate (SEROquel) 12.5 mg DAILY16 PO Last administered on at 16:29; Start 08/27/18 at 16:00; Stop 09/16/18 at 16:52; Status DC Heparin Sodium (Porcine) (Heparin Sodium) 5,000 unit Q8HRS SQ Last administered on 09/25/18at 13:45; Start 08/28/18 at 06:00; Stop 09/25/18 at 18 :16; Status DC Ciprofloxacin (Cipro) 500 mg BID PO Last administered on 09/06/18at 08:09; Start 08/27/18 at 21:00; Stop 09/06/18 at 20:59; Status DC Insulin Human Lispro (HumaLOG) 0-9 UNITS TIDWMEALS SQ Last administered on 10/26 17:31; Start 09/05/18 at 17:00 Dextrose 12.5 gm PRN Q15MIN PRN IV SEE COMMENTS; Start 09/05/18 at 14:15 Gabapentin (Neurontin) 200 mg TID PO Last administered on 10/26/18 20:36; Start 09/13/18 at 21:00 Bupropion HCl (Wellbutrin Xl) 150 mg DAILY PO Last administered on 10/26/18 08 :24; Start 09/17/18 at 09:00 Insulin Glargine (Lantus) 15 units QHS SQ Last administered on 10/26/18 20:49 ; Start 09/19/18 at 21:00 Olanzapine (ZyPREXA ZYDIS) 2.5 mg PRN Q2HR PRN PO PSYCHOSIS Last administered on 10/21/18 14:33; Start 09/22/18 at 12:00 Quetiapine Fumarate (SEROquel) 50 mg HS PO Last administered on 09/27/18at 21: 28; Start 09/22/18 at 21:00; Stop 09/28/18 at 19:49; Status DC Enoxaparin Sodium (Lovenox 40mg Syringe) 40 mg Q24H SQ Last administered on 20:35; Start 09/25/18 at 21:00 Duloxetine HCl (Cymbalta) 60 mg HS PO Last administered on 10/26/18 20:36; Start 09/29/18 at 21:00 Quetiapine Fumarate (SEROquel) 25 mg HS PO Last administered on 09/29/18at 20: 59; Start 09/28/18 at 21:00; Stop 09/30/18 at 17:23; Status DC Aripiprazole (Abilify) 2.5 mg QHS PO Last administered on 10/26/18 20:36; Start 09/30/18 at 21:00 Guaifenesin (Robitussin Dm) 10 ml PRN Q6HRS PRN PO COUGH Last administered on 19:11; Start 10/02/18 at 15:00 Nitrofurantoin Macrocrystals (Macrobid) 100 mg QHS PO Last administered on 10/26 20:35; Start 10/03/18 at 21:00 Cetirizine HCl (ZyrTEC) 10 mg DAILY PO Last administered on 10/26/18 08:24; Start 10/12/18 at 09:00 Docusate Sodium (Colace) 100 mg BID PO Last administered on 10/26/18 20:36; Start 10/18/18 at 21:00 Polyethylene Glycol (miraLAX) 17 gm DAILY PO Last administered on 10/26/18 08: 21; Start 10/19/18 at 09:00 Nystatin (Mycostatin) 5 ml QID SWSW Last administered on 10/26/18 20:47; Start 10/19/18 at 17:00 Nitroglycerin (Nitrostat) 0.4 mg PRN Q5MIN PRN SL CHEST PAIN Last administered on 10/25/18 23:19; Start 10/25/18 at 23:15 Active Scripts Active Reported Seroquel (Quetiapine Fumarate) 25 Mg Tablet 12.5 Mg PO DAILY16 Olanzapine 10 Mg Tablet 10 Mg PO PRN BID PRN Olanzapine Inj (Olanzapine) 10 Mg Vial 5 Mg IM PRN BID PRN Analgesic [place] (Methyl Salicylate/Menthol) 28 Gm Oint...g. 1 Frank TP PRN QID PRN Milk Of Magnesia (Magnesium Hydroxide) 2,400 Mg/10 Ml Oral.susp 2,400 Mg PO PRN QHS PRN Advanced Antacid Liquid (Mag Hydrox/Al Hydrox/Simeth) 355 Ml Oral.susp 15 Ml PO PRN AFTMEALHC PRN Culturelle (Lactobacillus Rhamnosus Gg) 1 Each Cap.sprink 1 Cap PO BID Humalog (Insulin Lispro) 100 Unit/1 Ml Cartridge 0-5 Unit SQ TIDWMEALS Gabapentin 100 Mg Capsule 100 Mg PO BID Cymbalta (Duloxetine Hcl) 60 Mg Capsule.dr 60 Mg PO DAILY Ciprofloxacin Hcl 500 Mg Tablet 500 Mg PO BID Venlafaxine Hcl Er (Venlafaxine Hcl) 150 Mg Tab.er.24 150 Mg PO DAILYWBKFT Quetiapine Fumarate 25 Mg Tablet 25 Mg PO DAILY Seroquel (Quetiapine Fumarate) 25 Mg Tablet 75 Mg PO QHS Namenda (Memantine Hcl) 10 Mg Tablet 10 Mg PO BID Lovastatin 40 Mg Tablet 80 Mg PO QHS Levothyroxine Sodium 100 Mcg Tablet 100 Mcg PO DAILYAC Keppra (Levetiracetam) 500 Mg Tablet 500 Mg PO BID Heparin 5,000 Unit/5 ml-Ns (Heparin Sod,Porcine/0.9 % NaCl) 5,000 Unit/5 Ml Syringe 5,000 Unit IM Q8HRS Vitamin D2 (Ergocalciferol (Vitamin D2)) 50,000 Unit Capsule 50,000 Unit PO WEEKLY Benazepril Hcl 20 Mg Tablet 20 Mg PO DAILY Aspirin 81 Mg Tab.chew 81 Mg PO DAILY Amlodipine Besylate 5 Mg Tablet 5 Mg PO DAILY Tylenol (Acetaminophen) 325 Mg Tablet 650 Mg PO PRN Q4HRS PRN I have reviewed the current psychotropics carefully including drug interactions. Risk benefit ratio favors no change other than as noted in my dictated progress note. Diagnosis: Problems: (1) Anxiety disorder (2) Mild cognitive disorder (3) Major depressive disorder, recurrent episode (4) Impulse control disorder ANTONIA BAILEY MD Oct 26, 2018 22:20
--- NOTE | 2018-10-27 01:36 | PN ---
DATE: 10/25/2018 PSYCHIATRIC PROGRESS NOTE This late entry date of service 10/25/2018, covers elements not covered in my initial note. SUBJECTIVE: I met with the patient in the evening. The patient slept 7-1/4 hours previous night. She did better the previous evening, brighter during the day on 10/25/2018. She still complains of tiredness. REVIEW OF SYSTEMS: Ambulation impaired, in wheelchair. No CV, , pulmonary, eye, ENT system symptoms on review. MENTAL STATUS EXAM: Oriented to herself and situation. Speech has some latency, coherent, low in volume. Abstraction fair, computation impaired, language function intact, attention span short. Mood and affect somewhat withdrawn. LABORATORY DATA: Reviewed. IMPRESSION: Unchanged from initial note. PLAN: No change from initial note. MAN Han BAILEY MD DR: RAYMON/christen JOB#: [id number] / [id number]
[2018-10-27] MEDS: LEVOTHYROXINE 100 MCG TABLET PO SCH (05:57)
[2018-10-27 05:59] VITALS: BP 136/84
[2018-10-27] MEDS: INSULIN LISPRO 300 UNITS/3 ML INSULN.PEN. SQ SCH ×3 (08:55→17:28)
[2018-10-27] MEDS: DOCUSATE SODIUM 100 MG CAPSULE PO SCH ×2 (08:56→21:35)
[2018-10-27] MEDS: LACTOBACILLUS RHAMNOSUS GG 1 CAPSULE. PO SCH ×2 (08:56→21:35)
[2018-10-27] MEDS: ASPIRIN 81 MG TAB.CHEW PO SCH (08:56)
[2018-10-27] MEDS: levETIRAcetam 500 MG TABLET PO SCH ×2 (08:56→21:32)
[2018-10-27] MEDS: POLYETHYLENE GLYCOL 3350 17 GM PACKET. PO SCH (08:57)
[2018-10-27] MEDS: MEMANTINE 10 MG TABLET. PO SCH ×2 (08:57→21:32)
[2018-10-27] MEDS: GABAPENTIN 100 MG CAPSULE. PO SCH ×3 (08:57→21:35)
[2018-10-27] MEDS: CETIRIZINE HCL 10 MG TABLET PO SCH (09:00)
[2018-10-27] MEDS: amLODIPine BESYLATE 5 MG TABLET PO SCH (09:00)
[2018-10-27] MEDS: buPROPion XL 150 MG TAB.ER.24H PO SCH (09:00)
[2018-10-27] MEDS: LISINOPRIL 20 MG TABLET PO SCH (09:00)
[2018-10-27] MEDS: NYSTATIN 100,000 UNITS/ML ORAL SUSPENSION 60ML BOTTLE. SWSW SCH ×4 (09:00→21:37)
[2018-10-27 16:16] VITALS: BP 126/80
[2018-10-27] MEDS: ARIPiprazole 5 MG TABLET PO SCH (21:31)
[2018-10-27] MEDS: NITROFURANTOIN MONOHYD/M-CRYST 100 MG CAPSULE. PO SCH (21:35)
[2018-10-27] MEDS: DULoxetine HCL 60 MG CAPSULE.DR PO SCH (21:35)
[2018-10-27] MEDS: ATORVASTATIN CALCIUM 20 MG TABLET PO SCH (21:36)
[2018-10-27] MEDS: ENOXAPARIN 40 MG/0.4 ML SYRINGE. SQ SCH (21:37)
[2018-10-27] MEDS: INSULIN GLARGINE 300 UNITS/3 ML INSULN.PEN. SQ SCH (21:40)
--- NOTE | 2018-10-27 23:01 | PDOC ---
Exam Note: José Miguel Note: Please also refer to the separate dictated note~for this date of service dictated separately.~Patient seen individually. Discussed the patient with Nursing staff reviewed the chart.~Reviewed interim history and current functioning. Reviewed vital signs,~Labs/ Radiology~and current medications noted below. Continue current treatment with the changes noted in the dictated addendum note Assessment: Vital Signs: Vital Signs Date Time Temp Pulse Resp B/P (MAP) Pulse Ox O2 Delivery O2 Flow Rate FiO2 10/27/18 16:16 97.9 69 18 126/80 (95) 98 10/25/18 16:58 Room Air I&O Intake and Output 10/27/18 07:01 Intake Total 600 ml Balance 600 ml Intake Oral 600 ml Labs: Laboratory Tests Test 10/27/18 07:16 10/27/18 11:51 10/27/18 16:21 10/27/18 19:12 Glucose (Fingerstick) 112 mg/dL (70-99) H 167 mg/dL (70-99) H 255 mg/dL (70-99) H 211 mg/dL (70-99) H Current Medications: Meds: Current Medications Acetaminophen (Tylenol) 650 mg PRN Q6HRS PRN PO PAIN / TEMP Last administered on 10/25/18 22:52; Start 08/08/18 at 20:00 Multi-Ingredient Ointment (Analgesic [place]) 1 frank PRN QID PRN TP MUSCLE PAIN Last administered on 10/25/18 22:52; Start 08/08/18 at 20:00 Al Hydroxide/Mg Hydroxide (Mylanta Plus Xs) 15 ml PRN AFTMEALHC PRN PO DYSPEPSIA; Start 08/08/18 at 20:00 Magnesium Hydroxide (Milk Of Magnesia) 2,400 mg PRN QHS PRN PO CONSTIPATION Last administered on 10/22/18 21:16; Start 08/08/18 at 20:00 Memantine (Namenda) 10 mg BID PO Last administered on 10/27/18 21:32; Start 08/08/18 at 22:00 Quetiapine Fumarate (SEROquel) 25 mg DAILY PO Last administered on 09/05/18at 08 :51; Start 08/09/18 at 09:00; Stop 09/05/18 at 11:58; Status DC Quetiapine Fumarate (SEROquel) 75 mg HS PO Last administered on 09/21/18at 20: 38; Start 08/08/18 at 22:00; Stop 09/22/18 at 18:49; Status DC Venlafaxine HCl (Effexor) 50 mg TID PO Last administered on 08/10/18at 13:40; Start 08/09/18 at 09:00; Stop 08/10/18 at 17:54; Status DC Acetaminophen (Tylenol) 650 mg PRN Q4HRS PRN PO PAIN / TEMP; Start 08/08/18 at 21:30; Status Cancel Levothyroxine Sodium (Synthroid) 100 mcg DAILY06 PO Last administered on 05:57; Start 08/09/18 at 06:00 Amlodipine Besylate (Norvasc) 5 mg DAILY PO Last administered on 10/27/18 09: 00; Start 08/09/18 at 09:00 Aspirin (Children'S Aspirin) 81 mg DAILY PO Last administered on 10/27/18 08: 56; Start 08/09/18 at 09:00 Lisinopril (Prinivil) 20 mg DAILY PO Last administered on 10/27/18 09:00; Start 08/09/18 at 09:00 Vitamin D (Vitamin D3) 50,000 unit WEEKLY PO Last administered on 10/24/18 08: 55; Start 08/15/18 at 09:00 Heparin Sodium (Porcine) (Heparin Sq) 5,000 unit Q8HRS SQ Last administered on 08/27/18at 22:37; Start 08/08/18 at 22:00; Stop 08/27/18 at 23:00; Status DC Levetiracetam (Keppra) 500 mg BID PO Last administered on 10/27/18 21:32; Start 08/08/18 at 22:00 Atorvastatin Calcium (Lipitor) 20 mg QHS PO Last administered on 10/27/18 21: 36; Start 08/09/18 at 21:00 Insulin Human Lispro (HumaLOG) 0-5 UNITS TIDWMEALS SQ Last administered on 09/05at 09:13; Start 08/09/18 at 08:00; Stop 09/05/18 at 14:16; Status DC Dextrose 12.5 gm PRN Q15MIN PRN IV SEE COMMENTS; Start 08/09/18 at 05:45; Stop 09/05/18 at 14:16; Status DC Duloxetine HCl (Cymbalta) 30 mg DAILY PO Last administered on 08/12/18at 08:06 ; Start 08/11/18 at 09:00; Stop 08/12/18 at 09:02; Status DC Duloxetine HCl (Cymbalta) 60 mg DAILY PO Last administered on 09/28/18at 08:28 ; Start 08/13/18 at 09:00; Stop 09/28/18 at 19:49; Status DC Cephalexin HCl (Keflex) 500 mg TID PO Last administered on 08/20/18at 19:28; Start 08/11/18 at 09:00; Stop 08/21/18 at 08:59; Status DC Lactobacillus Rhamnosus (Culturelle) 1 cap BID PO Last administered on at 21:35; Start 08/11/18 at 09:00 Levothyroxine Sodium (Synthroid) 100 mcg 1X ONCE PO Last administered on 08/15at 06:23; Start 08/15/18 at 06:30; Stop 08/15/18 at 06:31; Status DC Olanzapine (ZyPREXA ZYDIS) 10 mg PRN BID PRN PO AGITATION; Start 08/24/18 at 17:45; Stop 09/22/18 at 12:01; Status DC Olanzapine (ZyPREXA IM) 5 mg PRN BID PRN IM AGITATION Last administered on at 17:53; Start 08/24/18 at 17:45; Stop 09/22/18 at 12:01; Status DC Cefpodoxime Proxetil (Vantin) 200 mg BID PO Last administered on 08/27/18at 08: 28; Start 08/25/18 at 17:30; Stop 08/27/18 at 17:27; Status DC Gabapentin (Neurontin) 100 mg BID PO Last administered on 09/13/18at 09:05; Start 08/25/18 at 21:00; Stop 09/13/18 at 16:30; Status DC Quetiapine Fumarate (SEROquel) 12.5 mg DAILY16 PO Last administered on at 16:29; Start 08/27/18 at 16:00; Stop 09/16/18 at 16:52; Status DC Heparin Sodium (Porcine) (Heparin Sodium) 5,000 unit Q8HRS SQ Last administered on 09/25/18at 13:45; Start 08/28/18 at 06:00; Stop 09/25/18 at 18 :16; Status DC Ciprofloxacin (Cipro) 500 mg BID PO Last administered on 09/06/18at 08:09; Start 08/27/18 at 21:00; Stop 09/06/18 at 20:59; Status DC Insulin Human Lispro (HumaLOG) 0-9 UNITS TIDWMEALS SQ Last administered on 10/27 17:28; Start 09/05/18 at 17:00 Dextrose 12.5 gm PRN Q15MIN PRN IV SEE COMMENTS; Start 09/05/18 at 14:15 Gabapentin (Neurontin) 200 mg TID PO Last administered on 10/27/18 21:35; Start 09/13/18 at 21:00 Bupropion HCl (Wellbutrin Xl) 150 mg DAILY PO Last administered on 10/27/18 09 :00; Start 09/17/18 at 09:00 Insulin Glargine (Lantus) 15 units QHS SQ Last administered on 10/27/18 21:40 ; Start 09/19/18 at 21:00 Olanzapine (ZyPREXA ZYDIS) 2.5 mg PRN Q2HR PRN PO PSYCHOSIS Last administered on 10/21/18 14:33; Start 09/22/18 at 12:00 Quetiapine Fumarate (SEROquel) 50 mg HS PO Last administered on 09/27/18at 21: 28; Start 09/22/18 at 21:00; Stop 09/28/18 at 19:49; Status DC Enoxaparin Sodium (Lovenox 40mg Syringe) 40 mg Q24H SQ Last administered on 21:37; Start 09/25/18 at 21:00 Duloxetine HCl (Cymbalta) 60 mg HS PO Last administered on 10/27/18 21:35; Start 09/29/18 at 21:00 Quetiapine Fumarate (SEROquel) 25 mg HS PO Last administered on 09/29/18at 20: 59; Start 09/28/18 at 21:00; Stop 09/30/18 at 17:23; Status DC Aripiprazole (Abilify) 2.5 mg QHS PO Last administered on 10/27/18 21:31; Start 09/30/18 at 21:00 Guaifenesin (Robitussin Dm) 10 ml PRN Q6HRS PRN PO COUGH Last administered on 19:11; Start 10/02/18 at 15:00 Nitrofurantoin Macrocrystals (Macrobid) 100 mg QHS PO Last administered on 10/27 21:35; Start 10/03/18 at 21:00 Cetirizine HCl (ZyrTEC) 10 mg DAILY PO Last administered on 10/27/18 09:00; Start 10/12/18 at 09:00 Docusate Sodium (Colace) 100 mg BID PO Last administered on 10/27/18 21:35; Start 10/18/18 at 21:00 Polyethylene Glycol (miraLAX) 17 gm DAILY PO Last administered on 10/27/18at 08: 57; Start 10/19/18 at 09:00 Nystatin (Mycostatin) 5 ml QID SWSW Last administered on 10/27/18 21:37; Start 10/19/18 at 17:00 Nitroglycerin (Nitrostat) 0.4 mg PRN Q5MIN PRN SL CHEST PAIN Last administered on 10/25/18 23:19; Start 10/25/18 at 23:15 Active Scripts Active Reported Seroquel (Quetiapine Fumarate) 25 Mg Tablet 12.5 Mg PO DAILY16 Olanzapine 10 Mg Tablet 10 Mg PO PRN BID PRN Olanzapine Inj (Olanzapine) 10 Mg Vial 5 Mg IM PRN BID PRN Analgesic [place] (Methyl Salicylate/Menthol) 28 Gm Oint...g. 1 Frank TP PRN QID PRN Milk Of Magnesia (Magnesium Hydroxide) 2,400 Mg/10 Ml Oral.susp 2,400 Mg PO PRN QHS PRN Advanced Antacid Liquid (Mag Hydrox/Al Hydrox/Simeth) 355 Ml Oral.susp 15 Ml PO PRN AFTMEALHC PRN Culturelle (Lactobacillus Rhamnosus Gg) 1 Each Cap.sprink 1 Cap PO BID Humalog (Insulin Lispro) 100 Unit/1 Ml Cartridge 0-5 Unit SQ TIDWMEALS Gabapentin 100 Mg Capsule 100 Mg PO BID Cymbalta (Duloxetine Hcl) 60 Mg Capsule.dr 60 Mg PO DAILY Ciprofloxacin Hcl 500 Mg Tablet 500 Mg PO BID Venlafaxine Hcl Er (Venlafaxine Hcl) 150 Mg Tab.er.24 150 Mg PO DAILYWBKFT Quetiapine Fumarate 25 Mg Tablet 25 Mg PO DAILY Seroquel (Quetiapine Fumarate) 25 Mg Tablet 75 Mg PO QHS Namenda (Memantine Hcl) 10 Mg Tablet 10 Mg PO BID Lovastatin 40 Mg Tablet 80 Mg PO QHS Levothyroxine Sodium 100 Mcg Tablet 100 Mcg PO DAILYAC Keppra (Levetiracetam) 500 Mg Tablet 500 Mg PO BID Heparin 5,000 Unit/5 ml-Ns (Heparin Sod,Porcine/0.9 % NaCl) 5,000 Unit/5 Ml Syringe 5,000 Unit IM Q8HRS Vitamin D2 (Ergocalciferol (Vitamin D2)) 50,000 Unit Capsule 50,000 Unit PO WEEKLY Benazepril Hcl 20 Mg Tablet 20 Mg PO DAILY Aspirin 81 Mg Tab.chew 81 Mg PO DAILY Amlodipine Besylate 5 Mg Tablet 5 Mg PO DAILY Tylenol (Acetaminophen) 325 Mg Tablet 650 Mg PO PRN Q4HRS PRN I have reviewed the current psychotropics carefully including drug interactions. Risk benefit ratio favors no change other than as noted in my dictated progress note. Diagnosis: Problems: (1) Anxiety disorder (2) Mild cognitive disorder (3) Major depressive disorder, recurrent episode (4) Impulse control disorder ANTONIA BAILEY MD Oct 27, 2018 23:01
[2018-10-28] MEDS: LEVOTHYROXINE 100 MCG TABLET PO SCH (06:06)
[2018-10-28 06:10] VITALS: BP 139/71
[2018-10-28] MEDS: INSULIN LISPRO 300 UNITS/3 ML INSULN.PEN. SQ SCH ×3 (08:00→17:47)
[2018-10-28] MEDS: LISINOPRIL 20 MG TABLET PO SCH (08:05)
[2018-10-28] MEDS: DOCUSATE SODIUM 100 MG CAPSULE PO SCH ×2 (08:06→20:35)
[2018-10-28] MEDS: CETIRIZINE HCL 10 MG TABLET PO SCH (08:06)
[2018-10-28] MEDS: LACTOBACILLUS RHAMNOSUS GG 1 CAPSULE. PO SCH ×2 (08:07→20:35)
[2018-10-28] MEDS: ASPIRIN 81 MG TAB.CHEW PO SCH (08:07)
[2018-10-28] MEDS: MEMANTINE 10 MG TABLET. PO SCH ×2 (08:07→20:35)
[2018-10-28] MEDS: amLODIPine BESYLATE 5 MG TABLET PO SCH (08:09)
[2018-10-28] MEDS: GABAPENTIN 100 MG CAPSULE. PO SCH ×3 (08:09→20:36)
[2018-10-28] MEDS: buPROPion XL 150 MG TAB.ER.24H PO SCH (08:09)
[2018-10-28] MEDS: POLYETHYLENE GLYCOL 3350 17 GM PACKET. PO SCH (08:10)
[2018-10-28] MEDS: levETIRAcetam 500 MG TABLET PO SCH ×2 (08:12→20:34)
[2018-10-28] MEDS: NYSTATIN 100,000 UNITS/ML ORAL SUSPENSION 60ML BOTTLE. SWSW SCH ×4 (09:00→20:35)
[2018-10-28 15:47] VITALS: BP 155/86
[2018-10-28] MEDS: ARIPiprazole 5 MG TABLET PO SCH (20:34)
[2018-10-28] MEDS: DULoxetine HCL 60 MG CAPSULE.DR PO SCH (20:34)
[2018-10-28] MEDS: ATORVASTATIN CALCIUM 20 MG TABLET PO SCH (20:35)
[2018-10-28] MEDS: NITROFURANTOIN MONOHYD/M-CRYST 100 MG CAPSULE. PO SCH (20:35)
--- NOTE | 2018-10-28 22:00 | PN ---
DATE: 10/27/2018 This is a late entry for 10/27/2018 covers elements not covered in my initial note. SUBJECTIVE: I met with the patient in the evening. The patient slept 8 hours previous night. She remains somewhat withdrawn, but little more interactive during the day of 10/27/2018. REVIEW OF SYSTEMS: Ambulation impaired, in wheelchair. No CV, , pulmonary, eye, ENT system symptoms on review. MENTAL STATUS EXAM: Reasonably oriented. Speech has some latency, coherent, low in volume. Abstraction fair, computation impaired, language function intact. Mood and affect somewhat withdrawn, but better, more alert during the day. LABORATORY DATA: Reviewed. IMPRESSION: Major depressive disorder with psychotic features in partial remission. Rest unchanged. PLAN: No change from initial note. MAN Han BAILEY MD DR: RAYMON/christen JOB#: [id number] / [id number]
[2018-10-28] MEDS: ENOXAPARIN 40 MG/0.4 ML SYRINGE. SQ SCH (22:36)
[2018-10-28] MEDS: INSULIN GLARGINE 300 UNITS/3 ML INSULN.PEN. SQ SCH (22:38)
--- NOTE | 2018-10-28 22:59 | PDOC ---
Exam Note: José Miguel Note: Please also refer to the separate dictated note~for this date of service dictated separately.~Patient seen individually. Discussed the patient with Nursing staff reviewed the chart.~Reviewed interim history and current functioning. Reviewed vital signs,~Labs/ Radiology~and current medications noted below. Continue current treatment with the changes noted in the dictated addendum note Assessment: Vital Signs: Vital Signs Date Time Temp Pulse Resp B/P (MAP) Pulse Ox O2 Delivery O2 Flow Rate FiO2 10/28/18 15:47 99.7 75 16 155/86 (109) 99 10/28/18 06:10 Room Air I&O Intake and Output 10/28/18 07:01 Intake Total 560 ml Balance 560 ml Intake Oral 560 ml Labs: Laboratory Tests Test 10/28/18 07:36 10/28/18 11:31 10/28/18 16:40 10/28/18 19:27 Glucose (Fingerstick) 133 mg/dL (70-99) H 163 mg/dL (70-99) H 178 mg/dL (70-99) H 227 mg/dL (70-99) H Current Medications: Meds: Current Medications Acetaminophen (Tylenol) 650 mg PRN Q6HRS PRN PO PAIN / TEMP Last administered on 10/25/18 22:52; Start 08/08/18 at 20:00 Multi-Ingredient Ointment (Analgesic [place]) 1 frank PRN QID PRN TP MUSCLE PAIN Last administered on 10/25/18 22:52; Start 08/08/18 at 20:00 Al Hydroxide/Mg Hydroxide (Mylanta Plus Xs) 15 ml PRN AFTMEALHC PRN PO DYSPEPSIA; Start 08/08/18 at 20:00 Magnesium Hydroxide (Milk Of Magnesia) 2,400 mg PRN QHS PRN PO CONSTIPATION Last administered on 10/22/18 21:16; Start 08/08/18 at 20:00 Memantine (Namenda) 10 mg BID PO Last administered on 10/28/18 20:35; Start 08/08/18 at 22:00 Quetiapine Fumarate (SEROquel) 25 mg DAILY PO Last administered on 09/05/18at 08 :51; Start 08/09/18 at 09:00; Stop 09/05/18 at 11:58; Status DC Quetiapine Fumarate (SEROquel) 75 mg HS PO Last administered on 09/21/18at 20: 38; Start 08/08/18 at 22:00; Stop 09/22/18 at 18:49; Status DC Venlafaxine HCl (Effexor) 50 mg TID PO Last administered on 08/10/18at 13:40; Start 08/09/18 at 09:00; Stop 08/10/18 at 17:54; Status DC Acetaminophen (Tylenol) 650 mg PRN Q4HRS PRN PO PAIN / TEMP; Start 08/08/18 at 21:30; Status Cancel Levothyroxine Sodium (Synthroid) 100 mcg DAILY06 PO Last administered on 06:06; Start 08/09/18 at 06:00 Amlodipine Besylate (Norvasc) 5 mg DAILY PO Last administered on 10/28/18 08: 09; Start 08/09/18 at 09:00 Aspirin (Children'S Aspirin) 81 mg DAILY PO Last administered on 10/28/18 08: 07; Start 08/09/18 at 09:00 Lisinopril (Prinivil) 20 mg DAILY PO Last administered on 10/28/18 08:05; Start 08/09/18 at 09:00 Vitamin D (Vitamin D3) 50,000 unit WEEKLY PO Last administered on 10/24/18 08: 55; Start 08/15/18 at 09:00 Heparin Sodium (Porcine) (Heparin Sq) 5,000 unit Q8HRS SQ Last administered on 08/27/18at 22:37; Start 08/08/18 at 22:00; Stop 08/27/18 at 23:00; Status DC Levetiracetam (Keppra) 500 mg BID PO Last administered on 10/28/18 20:34; Start 08/08/18 at 22:00 Atorvastatin Calcium (Lipitor) 20 mg QHS PO Last administered on 10/28/18 20: 35; Start 08/09/18 at 21:00 Insulin Human Lispro (HumaLOG) 0-5 UNITS TIDWMEALS SQ Last administered on 09/05at 09:13; Start 08/09/18 at 08:00; Stop 09/05/18 at 14:16; Status DC Dextrose 12.5 gm PRN Q15MIN PRN IV SEE COMMENTS; Start 08/09/18 at 05:45; Stop 09/05/18 at 14:16; Status DC Duloxetine HCl (Cymbalta) 30 mg DAILY PO Last administered on 08/12/18at 08:06 ; Start 08/11/18 at 09:00; Stop 08/12/18 at 09:02; Status DC Duloxetine HCl (Cymbalta) 60 mg DAILY PO Last administered on 09/28/18at 08:28 ; Start 08/13/18 at 09:00; Stop 09/28/18 at 19:49; Status DC Cephalexin HCl (Keflex) 500 mg TID PO Last administered on 08/20/18at 19:28; Start 08/11/18 at 09:00; Stop 08/21/18 at 08:59; Status DC Lactobacillus Rhamnosus (Culturelle) 1 cap BID PO Last administered on at 20:35; Start 08/11/18 at 09:00 Levothyroxine Sodium (Synthroid) 100 mcg 1X ONCE PO Last administered on 08/15at 06:23; Start 08/15/18 at 06:30; Stop 08/15/18 at 06:31; Status DC Olanzapine (ZyPREXA ZYDIS) 10 mg PRN BID PRN PO AGITATION; Start 08/24/18 at 17:45; Stop 09/22/18 at 12:01; Status DC Olanzapine (ZyPREXA IM) 5 mg PRN BID PRN IM AGITATION Last administered on at 17:53; Start 08/24/18 at 17:45; Stop 09/22/18 at 12:01; Status DC Cefpodoxime Proxetil (Vantin) 200 mg BID PO Last administered on 08/27/18at 08: 28; Start 08/25/18 at 17:30; Stop 08/27/18 at 17:27; Status DC Gabapentin (Neurontin) 100 mg BID PO Last administered on 09/13/18at 09:05; Start 08/25/18 at 21:00; Stop 09/13/18 at 16:30; Status DC Quetiapine Fumarate (SEROquel) 12.5 mg DAILY16 PO Last administered on at 16:29; Start 08/27/18 at 16:00; Stop 09/16/18 at 16:52; Status DC Heparin Sodium (Porcine) (Heparin Sodium) 5,000 unit Q8HRS SQ Last administered on 09/25/18at 13:45; Start 08/28/18 at 06:00; Stop 09/25/18 at 18 :16; Status DC Ciprofloxacin (Cipro) 500 mg BID PO Last administered on 09/06/18at 08:09; Start 08/27/18 at 21:00; Stop 09/06/18 at 20:59; Status DC Insulin Human Lispro (HumaLOG) 0-9 UNITS TIDWMEALS SQ Last administered on 10/28 17:47; Start 09/05/18 at 17:00 Dextrose 12.5 gm PRN Q15MIN PRN IV SEE COMMENTS; Start 09/05/18 at 14:15 Gabapentin (Neurontin) 200 mg TID PO Last administered on 10/28/18 20:36; Start 09/13/18 at 21:00 Bupropion HCl (Wellbutrin Xl) 150 mg DAILY PO Last administered on 10/28/18 08 :09; Start 09/17/18 at 09:00 Insulin Glargine (Lantus) 15 units QHS SQ Last administered on 10/28/18 22:38 ; Start 09/19/18 at 21:00 Olanzapine (ZyPREXA ZYDIS) 2.5 mg PRN Q2HR PRN PO PSYCHOSIS Last administered on 10/21/18 14:33; Start 09/22/18 at 12:00 Quetiapine Fumarate (SEROquel) 50 mg HS PO Last administered on 09/27/18at 21: 28; Start 09/22/18 at 21:00; Stop 09/28/18 at 19:49; Status DC Enoxaparin Sodium (Lovenox 40mg Syringe) 40 mg Q24H SQ Last administered on 22:36; Start 09/25/18 at 21:00 Duloxetine HCl (Cymbalta) 60 mg HS PO Last administered on 10/28/18 20:34; Start 09/29/18 at 21:00 Quetiapine Fumarate (SEROquel) 25 mg HS PO Last administered on 09/29/18at 20: 59; Start 09/28/18 at 21:00; Stop 09/30/18 at 17:23; Status DC Aripiprazole (Abilify) 2.5 mg QHS PO Last administered on 10/28/18at 20:34; Start 09/30/18 at 21:00 Guaifenesin (Robitussin Dm) 10 ml PRN Q6HRS PRN PO COUGH Last administered on 19:11; Start 10/02/18 at 15:00 Nitrofurantoin Macrocrystals (Macrobid) 100 mg QHS PO Last administered on 10/28 20:35; Start 10/03/18 at 21:00 Cetirizine HCl (ZyrTEC) 10 mg DAILY PO Last administered on 10/28/18 08:06; Start 10/12/18 at 09:00 Docusate Sodium (Colace) 100 mg BID PO Last administered on 10/28/18 20:35; Start 10/18/18 at 21:00 Polyethylene Glycol (miraLAX) 17 gm DAILY PO Last administered on 10/28/18at 08: 10; Start 10/19/18 at 09:00 Nystatin (Mycostatin) 5 ml QID SWSW Last administered on 10/28/18at 17:46; Start 10/19/18 at 17:00; Stop 10/29/18 at 16:59 Nitroglycerin (Nitrostat) 0.4 mg PRN Q5MIN PRN SL CHEST PAIN Last administered on 10/25/18 23:19; Start 10/25/18 at 23:15 Active Scripts Active Reported Seroquel (Quetiapine Fumarate) 25 Mg Tablet 12.5 Mg PO DAILY16 Olanzapine 10 Mg Tablet 10 Mg PO PRN BID PRN Olanzapine Inj (Olanzapine) 10 Mg Vial 5 Mg IM PRN BID PRN Analgesic [place] (Methyl Salicylate/Menthol) 28 Gm Oint...g. 1 Frank TP PRN QID PRN Milk Of Magnesia (Magnesium Hydroxide) 2,400 Mg/10 Ml Oral.susp 2,400 Mg PO PRN QHS PRN Advanced Antacid Liquid (Mag Hydrox/Al Hydrox/Simeth) 355 Ml Oral.susp 15 Ml PO PRN AFTMEALHC PRN Culturelle (Lactobacillus Rhamnosus Gg) 1 Each Cap.sprink 1 Cap PO BID Humalog (Insulin Lispro) 100 Unit/1 Ml Cartridge 0-5 Unit SQ TIDWMEALS Gabapentin 100 Mg Capsule 100 Mg PO BID Cymbalta (Duloxetine Hcl) 60 Mg Capsule.dr 60 Mg PO DAILY Ciprofloxacin Hcl 500 Mg Tablet 500 Mg PO BID Venlafaxine Hcl Er (Venlafaxine Hcl) 150 Mg Tab.er.24 150 Mg PO DAILYWBKFT Quetiapine Fumarate 25 Mg Tablet 25 Mg PO DAILY Seroquel (Quetiapine Fumarate) 25 Mg Tablet 75 Mg PO QHS Namenda (Memantine Hcl) 10 Mg Tablet 10 Mg PO BID Lovastatin 40 Mg Tablet 80 Mg PO QHS Levothyroxine Sodium 100 Mcg Tablet 100 Mcg PO DAILYAC Keppra (Levetiracetam) 500 Mg Tablet 500 Mg PO BID Heparin 5,000 Unit/5 ml-Ns (Heparin Sod,Porcine/0.9 % NaCl) 5,000 Unit/5 Ml Syringe 5,000 Unit IM Q8HRS Vitamin D2 (Ergocalciferol (Vitamin D2)) 50,000 Unit Capsule 50,000 Unit PO WEEKLY Benazepril Hcl 20 Mg Tablet 20 Mg PO DAILY Aspirin 81 Mg Tab.chew 81 Mg PO DAILY Amlodipine Besylate 5 Mg Tablet 5 Mg PO DAILY Tylenol (Acetaminophen) 325 Mg Tablet 650 Mg PO PRN Q4HRS PRN I have reviewed the current psychotropics carefully including drug interactions. Risk benefit ratio favors no change other than as noted in my dictated progress note. Diagnosis: Problems: (1) Anxiety disorder (2) Mild cognitive disorder (3) Major depressive disorder, recurrent episode (4) Impulse control disorder ANTONIA BAILEY MD Oct 28, 2018 22:59
--- NOTE | 2018-10-29 03:26 | PN ---
DATE: 10/26/2018 This is a late entry for 10/26/2018 covers elements not covered in my initial note. SUBJECTIVE: I met with the patient in the evening. The patient slept 6-3/4 hours previous night. She remains somewhat withdrawn, isolated, but otherwise appropriate. REVIEW OF SYSTEMS: Ambulation impaired, in wheelchair. No CV, , pulmonary, eye system symptoms on review. MENTAL STATUS EXAM: Oriented to herself and situation. Speech moderate latency, often responses monosyllabic, coherent. Abstraction fair, computation impaired, language function intact. Mood and affect somewhat withdrawn. LABORATORY DATA: Reviewed. IMPRESSION: Major depressive disorder with psychotic features; anxiety disorder, unspecified. Rest unchanged. PLAN: No change from initial note. MAN Han BAILEY MD DR: RAYMON/christen JOB#: [id number] / [id number]
[2018-10-29] MEDS: LEVOTHYROXINE 100 MCG TABLET PO SCH (06:07)
[2018-10-29 06:40] VITALS: BP 131/82
[2018-10-29] MEDS: INSULIN LISPRO 300 UNITS/3 ML INSULN.PEN. SQ SCH ×3 (08:00→17:25)
[2018-10-29] MEDS: POLYETHYLENE GLYCOL 3350 17 GM PACKET. PO SCH (08:28)
[2018-10-29] MEDS: CETIRIZINE HCL 10 MG TABLET PO SCH (08:28)
[2018-10-29] MEDS: levETIRAcetam 500 MG TABLET PO SCH ×2 (08:29→20:44)
[2018-10-29] MEDS: ASPIRIN 81 MG TAB.CHEW PO SCH (08:29)
[2018-10-29] MEDS: LISINOPRIL 20 MG TABLET PO SCH (08:29)
[2018-10-29] MEDS: buPROPion XL 150 MG TAB.ER.24H PO SCH (08:29)
[2018-10-29] MEDS: MEMANTINE 10 MG TABLET. PO SCH ×2 (08:29→20:44)
[2018-10-29] MEDS: DOCUSATE SODIUM 100 MG CAPSULE PO SCH ×2 (08:29→20:44)
[2018-10-29] MEDS: amLODIPine BESYLATE 5 MG TABLET PO SCH (08:29)
[2018-10-29] MEDS: GABAPENTIN 100 MG CAPSULE. PO SCH ×3 (08:29→20:45)
[2018-10-29] MEDS: LACTOBACILLUS RHAMNOSUS GG 1 CAPSULE. PO SCH ×2 (08:30→20:45)
[2018-10-29] MEDS: NYSTATIN 100,000 UNITS/ML ORAL SUSPENSION 60ML BOTTLE. SWSW SCH ×2 (08:32→13:00)
[2018-10-29 16:17] VITALS: BP 119/75
[2018-10-29] MEDS: ATORVASTATIN CALCIUM 20 MG TABLET PO SCH (20:45)
[2018-10-29] MEDS: DULoxetine HCL 60 MG CAPSULE.DR PO SCH (20:45)
[2018-10-29] MEDS: NITROFURANTOIN MONOHYD/M-CRYST 100 MG CAPSULE. PO SCH (20:45)
[2018-10-29] MEDS: ENOXAPARIN 40 MG/0.4 ML SYRINGE. SQ SCH (20:45)
[2018-10-29] MEDS: INSULIN GLARGINE 300 UNITS/3 ML INSULN.PEN. SQ SCH (20:53)
--- NOTE | 2018-10-29 22:49 | PDOC ---
Exam Note: José Miguel Note: Please also refer to the separate dictated note~for this date of service dictated separately.~Patient seen individually. Discussed the patient with Nursing staff reviewed the chart.~Reviewed interim history and current functioning. Reviewed vital signs,~Labs/ Radiology~and current medications noted below. Continue current treatment with the changes noted in the dictated addendum note Assessment: Vital Signs: Vital Signs Date Time Temp Pulse Resp B/P (MAP) Pulse Ox O2 Delivery O2 Flow Rate FiO2 10/29/18 16:17 97.9 78 20 119/75 (90) 100 Room Air I&O Intake and Output 10/29/18 07:01 Intake Total 560 ml Balance 560 ml Intake Oral 560 ml # Voids 1 # Bowel Movements 1 Labs: Laboratory Tests Test 10/29/18 07:28 10/29/18 11:45 10/29/18 17:03 10/29/18 19:28 Glucose (Fingerstick) 141 mg/dL (70-99) H 246 mg/dL (70-99) H 242 mg/dL (70-99) H 194 mg/dL (70-99) H Current Medications: Meds: Current Medications Acetaminophen (Tylenol) 650 mg PRN Q6HRS PRN PO PAIN / TEMP Last administered on 10/25/18 22:52; Start 08/08/18 at 20:00 Multi-Ingredient Ointment (Analgesic Duncan) 1 frank PRN QID PRN TP MUSCLE PAIN Last administered on 10/25/18 22:52; Start 08/08/18 at 20:00 Al Hydroxide/Mg Hydroxide (Mylanta Plus Xs) 15 ml PRN AFTMEALHC PRN PO DYSPEPSIA; Start 08/08/18 at 20:00 Magnesium Hydroxide (Milk Of Magnesia) 2,400 mg PRN QHS PRN PO CONSTIPATION Last administered on 10/22/18 21:16; Start 08/08/18 at 20:00 Memantine (Namenda) 10 mg BID PO Last administered on 10/29/18 20:44; Start 08/08/18 at 22:00 Quetiapine Fumarate (SEROquel) 25 mg DAILY PO Last administered on 09/05/18at 08 :51; Start 08/09/18 at 09:00; Stop 09/05/18 at 11:58; Status DC Quetiapine Fumarate (SEROquel) 75 mg HS PO Last administered on 09/21/18at 20: 38; Start 08/08/18 at 22:00; Stop 09/22/18 at 18:49; Status DC Venlafaxine HCl (Effexor) 50 mg TID PO Last administered on 08/10/18at 13:40; Start 08/09/18 at 09:00; Stop 08/10/18 at 17:54; Status DC Acetaminophen (Tylenol) 650 mg PRN Q4HRS PRN PO PAIN / TEMP; Start 08/08/18 at 21:30; Status Cancel Levothyroxine Sodium (Synthroid) 100 mcg DAILY06 PO Last administered on 06:07; Start 08/09/18 at 06:00 Amlodipine Besylate (Norvasc) 5 mg DAILY PO Last administered on 10/29/18 08: 29; Start 08/09/18 at 09:00 Aspirin (Children'S Aspirin) 81 mg DAILY PO Last administered on 10/29/18 08: 29; Start 08/09/18 at 09:00 Lisinopril (Prinivil) 20 mg DAILY PO Last administered on 10/29/18 08:29; Start 08/09/18 at 09:00 Vitamin D (Vitamin D3) 50,000 unit WEEKLY PO Last administered on 10/24/18 08: 55; Start 08/15/18 at 09:00 Heparin Sodium (Porcine) (Heparin Sq) 5,000 unit Q8HRS SQ Last administered on 08/27/18at 22:37; Start 08/08/18 at 22:00; Stop 08/27/18 at 23:00; Status DC Levetiracetam (Keppra) 500 mg BID PO Last administered on 10/29/18 20:44; Start 08/08/18 at 22:00 Atorvastatin Calcium (Lipitor) 20 mg QHS PO Last administered on 10/29/18 20: 45; Start 08/09/18 at 21:00 Insulin Human Lispro (HumaLOG) 0-5 UNITS TIDWMEALS SQ Last administered on 09/05at 09:13; Start 08/09/18 at 08:00; Stop 09/05/18 at 14:16; Status DC Dextrose 12.5 gm PRN Q15MIN PRN IV SEE COMMENTS; Start 08/09/18 at 05:45; Stop 09/05/18 at 14:16; Status DC Duloxetine HCl (Cymbalta) 30 mg DAILY PO Last administered on 08/12/18at 08:06 ; Start 08/11/18 at 09:00; Stop 08/12/18 at 09:02; Status DC Duloxetine HCl (Cymbalta) 60 mg DAILY PO Last administered on 09/28/18at 08:28 ; Start 08/13/18 at 09:00; Stop 09/28/18 at 19:49; Status DC Cephalexin HCl (Keflex) 500 mg TID PO Last administered on 08/20/18at 19:28; Start 08/11/18 at 09:00; Stop 08/21/18 at 08:59; Status DC Lactobacillus Rhamnosus (Culturelle) 1 cap BID PO Last administered on at 20:45; Start 08/11/18 at 09:00 Levothyroxine Sodium (Synthroid) 100 mcg 1X ONCE PO Last administered on 08/15at 06:23; Start 08/15/18 at 06:30; Stop 08/15/18 at 06:31; Status DC Olanzapine (ZyPREXA ZYDIS) 10 mg PRN BID PRN PO AGITATION; Start 08/24/18 at 17:45; Stop 09/22/18 at 12:01; Status DC Olanzapine (ZyPREXA IM) 5 mg PRN BID PRN IM AGITATION Last administered on at 17:53; Start 08/24/18 at 17:45; Stop 09/22/18 at 12:01; Status DC Cefpodoxime Proxetil (Vantin) 200 mg BID PO Last administered on 08/27/18at 08: 28; Start 08/25/18 at 17:30; Stop 08/27/18 at 17:27; Status DC Gabapentin (Neurontin) 100 mg BID PO Last administered on 09/13/18at 09:05; Start 08/25/18 at 21:00; Stop 09/13/18 at 16:30; Status DC Quetiapine Fumarate (SEROquel) 12.5 mg DAILY16 PO Last administered on at 16:29; Start 08/27/18 at 16:00; Stop 09/16/18 at 16:52; Status DC Heparin Sodium (Porcine) (Heparin Sodium) 5,000 unit Q8HRS SQ Last administered on 09/25/18at 13:45; Start 08/28/18 at 06:00; Stop 09/25/18 at 18 :16; Status DC Ciprofloxacin (Cipro) 500 mg BID PO Last administered on 09/06/18at 08:09; Start 08/27/18 at 21:00; Stop 09/06/18 at 20:59; Status DC Insulin Human Lispro (HumaLOG) 0-9 UNITS TIDWMEALS SQ Last administered on 10/29 17:25; Start 09/05/18 at 17:00 Dextrose 12.5 gm PRN Q15MIN PRN IV SEE COMMENTS; Start 09/05/18 at 14:15 Gabapentin (Neurontin) 200 mg TID PO Last administered on 10/29/18 20:45; Start 09/13/18 at 21:00 Bupropion HCl (Wellbutrin Xl) 150 mg DAILY PO Last administered on 10/29/18 08 :29; Start 09/17/18 at 09:00 Insulin Glargine (Lantus) 15 units QHS SQ Last administered on 10/29/18 20:53 ; Start 09/19/18 at 21:00 Olanzapine (ZyPREXA ZYDIS) 2.5 mg PRN Q2HR PRN PO PSYCHOSIS Last administered on 10/21/18 14:33; Start 09/22/18 at 12:00 Quetiapine Fumarate (SEROquel) 50 mg HS PO Last administered on 09/27/18at 21: 28; Start 09/22/18 at 21:00; Stop 09/28/18 at 19:49; Status DC Enoxaparin Sodium (Lovenox 40mg Syringe) 40 mg Q24H SQ Last administered on 20:45; Start 09/25/18 at 21:00 Duloxetine HCl (Cymbalta) 60 mg HS PO Last administered on 10/29/18 20:45; Start 09/29/18 at 21:00 Quetiapine Fumarate (SEROquel) 25 mg HS PO Last administered on 09/29/18at 20: 59; Start 09/28/18 at 21:00; Stop 09/30/18 at 17:23; Status DC Aripiprazole (Abilify) 2.5 mg QHS PO Last administered on 10/28/18at 20:34; Start 09/30/18 at 21:00; Stop 10/29/18 at 18:40; Status DC Guaifenesin (Robitussin Dm) 10 ml PRN Q6HRS PRN PO COUGH Last administered on 19:11; Start 10/02/18 at 15:00 Nitrofurantoin Macrocrystals (Macrobid) 100 mg QHS PO Last administered on 10/29 20:45; Start 10/03/18 at 21:00 Cetirizine HCl (ZyrTEC) 10 mg DAILY PO Last administered on 10/29/18 08:28; Start 10/12/18 at 09:00 Docusate Sodium (Colace) 100 mg BID PO Last administered on 10/29/18 20:44; Start 10/18/18 at 21:00 Polyethylene Glycol (miraLAX) 17 gm DAILY PO Last administered on 10/29/18 08: 28; Start 10/19/18 at 09:00 Nystatin (Mycostatin) 5 ml QID SWSW Last administered on 10/28/18at 17:46; Start 10/19/18 at 17:00; Stop 10/29/18 at 16:59; Status DC Nitroglycerin (Nitrostat) 0.4 mg PRN Q5MIN PRN SL CHEST PAIN Last administered on 10/25/18at 23:19; Start 10/25/18 at 23:15 Active Scripts Active Reported Seroquel (Quetiapine Fumarate) 25 Mg Tablet 12.5 Mg PO DAILY16 Olanzapine 10 Mg Tablet 10 Mg PO PRN BID PRN Olanzapine Inj (Olanzapine) 10 Mg Vial 5 Mg IM PRN BID PRN Analgesic Duncan (Methyl Salicylate/Menthol) 28 Gm Oint...g. 1 Frank TP PRN QID PRN Milk Of Magnesia (Magnesium Hydroxide) 2,400 Mg/10 Ml Oral.susp 2,400 Mg PO PRN QHS PRN Advanced Antacid Liquid (Mag Hydrox/Al Hydrox/Simeth) 355 Ml Oral.susp 15 Ml PO PRN AFTMEALHC PRN Culturelle (Lactobacillus Rhamnosus Gg) 1 Each Cap.sprink 1 Cap PO BID Humalog (Insulin Lispro) 100 Unit/1 Ml Cartridge 0-5 Unit SQ TIDWMEALS Gabapentin 100 Mg Capsule 100 Mg PO BID Cymbalta (Duloxetine Hcl) 60 Mg Capsule.dr 60 Mg PO DAILY Ciprofloxacin Hcl 500 Mg Tablet 500 Mg PO BID Venlafaxine Hcl Er (Venlafaxine Hcl) 150 Mg Tab.er.24 150 Mg PO DAILYWBKFT Quetiapine Fumarate 25 Mg Tablet 25 Mg PO DAILY Seroquel (Quetiapine Fumarate) 25 Mg Tablet 75 Mg PO QHS Namenda (Memantine Hcl) 10 Mg Tablet 10 Mg PO BID Lovastatin 40 Mg Tablet 80 Mg PO QHS Levothyroxine Sodium 100 Mcg Tablet 100 Mcg PO DAILYAC Keppra (Levetiracetam) 500 Mg Tablet 500 Mg PO BID Heparin 5,000 Unit/5 ml-Ns (Heparin Sod,Porcine/0.9 % NaCl) 5,000 Unit/5 Ml Syringe 5,000 Unit IM Q8HRS Vitamin D2 (Ergocalciferol (Vitamin D2)) 50,000 Unit Capsule 50,000 Unit PO WEEKLY Benazepril Hcl 20 Mg Tablet 20 Mg PO DAILY Aspirin 81 Mg Tab.chew 81 Mg PO DAILY Amlodipine Besylate 5 Mg Tablet 5 Mg PO DAILY Tylenol (Acetaminophen) 325 Mg Tablet 650 Mg PO PRN Q4HRS PRN I have reviewed the current psychotropics carefully including drug interactions. Risk benefit ratio favors no change other than as noted in my dictated progress note. Diagnosis: Problems: (1) Anxiety disorder (2) Mild cognitive disorder (3) Major depressive disorder, recurrent episode (4) Impulse control disorder ANTONIA BAILEY MD Oct 29, 2018 22:49
--- NOTE | 2018-10-30 02:23 | PN ---
DATE: 10/28/2018 PSYCHIATRIC PROGRESS NOTE This late entry 10/28/2018 covers elements, not covered in my initial note. SUBJECTIVE: I met with the patient in the evening. The patient slept 6 hours previous night. She has been somewhat withdrawn, tired during the day. Temperature 99.7, defer to Dr. Anguiano. She is sleeping in the evening, slept 6 hours previous night, BP 155/86. REVIEW OF SYSTEMS: Ambulation impaired, in wheelchair. No CV, , pulmonary, eye system symptoms on review. MENTAL STATUS EXAM: Oriented to herself and situation. Speech is coherent, little more animated as I met with her. Abstraction fair, computation impaired, language function intact, attention span short. Mood and affect still somewhat withdrawn. LABORATORY DATA: Reviewed. IMPRESSION: Major depressive disorder with psychotic features, in partial remission. Rest unchanged. PLAN: We will go ahead and discontinue the Abilify. Maintain rest of the psychotropics per the initial note. Abilify may be contributing to the sedation. MAN Han BAILEY MD DR: RAYMON/christen JOB#: [id number] / [id number]
[2018-10-30 06:04] VITALS: BP 162/78
[2018-10-30] MEDS: LEVOTHYROXINE 100 MCG TABLET PO SCH (06:29)
[2018-10-30] MEDS: INSULIN LISPRO 300 UNITS/3 ML INSULN.PEN. SQ SCH ×3 (08:09→17:24)
[2018-10-30] MEDS: LACTOBACILLUS RHAMNOSUS GG 1 CAPSULE. PO SCH ×2 (08:16→21:12)
[2018-10-30] MEDS: POLYETHYLENE GLYCOL 3350 17 GM PACKET. PO SCH (08:16)
[2018-10-30] MEDS: DOCUSATE SODIUM 100 MG CAPSULE PO SCH ×2 (08:16→21:12)
[2018-10-30] MEDS: ASPIRIN 81 MG TAB.CHEW PO SCH (08:16)
[2018-10-30] MEDS: MEMANTINE 10 MG TABLET. PO SCH ×2 (08:16→21:12)
[2018-10-30] MEDS: levETIRAcetam 500 MG TABLET PO SCH ×2 (08:16→21:12)
[2018-10-30] MEDS: GABAPENTIN 100 MG CAPSULE. PO SCH ×3 (08:17→21:12)
[2018-10-30] MEDS: amLODIPine BESYLATE 5 MG TABLET PO SCH (08:17)
[2018-10-30] MEDS: LISINOPRIL 20 MG TABLET PO SCH (08:18)
[2018-10-30] MEDS: buPROPion XL 150 MG TAB.ER.24H PO SCH (08:18)
[2018-10-30] MEDS: CETIRIZINE HCL 10 MG TABLET PO SCH (08:19)
[2018-10-30 14:44] LABS: BASO % 1 % (0-3); EOS # 0.1 x10^3/uL (0.0-0.7); EOS % 3 % (0-3); HEMATOCRIT 39.3 % (36.0-47.0); LYMPH # 1.7 x10^3/uL (1.0-4.8); LYMPH % 32 % (24-48); MEAN CORPUSCULAR HEMOGLOBIN 33 pg (25-35); MEAN CORPUSCULAR HGB CONC 33 g/dL (31-37); MEAN CORPUSCULAR VOLUME 100 fL (79-100); MONO # 0.2 x10^3/uL (0.0-1.1); MONO % 4 % (0-9); NEUT # 3.3 x10^3uL (1.8-7.7); NEUT % 61 % (31-73); PLATELET COUNT 248 x10^3/uL (140-400); RED BLOOD COUNT 3.95 x10^6/uL (3.50-5.40); RED CELL DISTRIBUTION WIDTH 15.3 % (11.5-14.5); WHITE BLOOD COUNT 5.5 x10^3/uL (4.0-11.0)
[2018-10-30 14:54] LABS: ALBUMIN 3.6 g/dL (3.4-5.0); ALBUMIN/GLOBULIN RATIO 0.8 (1.0-1.7); CALCIUM 9.4 mg/dL (8.5-10.1); CREATININE 0.8 mg/dL (0.6-1.0); GFR 69.9; TOTAL BILIRUBIN 0.3 mg/dL (0.2-1.0); TOTAL PROTEIN 8.1 g/dL (6.4-8.2)
[2018-10-30 16:38] VITALS: BP 154/85
[2018-10-30] MEDS: NITROFURANTOIN MONOHYD/M-CRYST 100 MG CAPSULE. PO SCH (21:11)
[2018-10-30] MEDS: ATORVASTATIN CALCIUM 20 MG TABLET PO SCH (21:12)
[2018-10-30] MEDS: DULoxetine HCL 60 MG CAPSULE.DR PO SCH (21:12)
[2018-10-30] MEDS: ENOXAPARIN 40 MG/0.4 ML SYRINGE. SQ SCH (21:13)
[2018-10-30] MEDS: INSULIN GLARGINE 300 UNITS/3 ML INSULN.PEN. SQ SCH (21:51)
--- NOTE | 2018-10-30 22:46 | PDOC ---
Exam Note: José Miguel Note: Please also refer to the separate dictated note~for this date of service dictated separately.~Patient seen individually. Discussed the patient with Nursing staff reviewed the chart.~Reviewed interim history and current functioning. Reviewed vital signs,~Labs/ Radiology~and current medications noted below. Continue current treatment with the changes noted in the dictated addendum note Assessment: Vital Signs: Vital Signs Date Time Temp Pulse Resp B/P (MAP) Pulse Ox O2 Delivery O2 Flow Rate FiO2 10/30/18 16:38 97.4 80 16 154/85 (108) 99 10/29/18 16:17 Room Air I&O Intake and Output 10/30/18 07:01 Intake Total 1080 ml Balance 1080 ml Intake Oral 1080 ml # Voids 1 # Bowel Movements 2 Labs: Laboratory Tests Test 10/30/18 08:02 10/30/18 11:47 10/30/18 14:25 10/30/18 16:59 Glucose (Fingerstick) 157 mg/dL (70-99) H 148 mg/dL (70-99) H 215 mg/dL (70-99) H White Blood Count 5.5 x10^3/uL (4.0-11.0) Red Blood Count 3.95 x10^6/uL (3.50-5.40) Hemoglobin 13.0 g/dL (12.0-15.5) Hematocrit 39.3 % (36.0-47.0) Mean Corpuscular Volume 100 fL (79-100) # Mean Corpuscular Hemoglobin 33 pg (25-35) Mean Corpuscular Hemoglobin Concent 33 g/dL (31-37) Red Cell Distribution Width 15.3 % (11.5-14.5) H Platelet Count 248 x10^3/uL (140-400) Neutrophils (%) (Auto) 61 % (31-73) Lymphocytes (%) (Auto) 32 % (24-48) Monocytes (%) (Auto) 4 % (0-9) Eosinophils (%) (Auto) 3 % (0-3) Basophils (%) (Auto) 1 % (0-3) Neutrophils # (Auto) 3.3 x10^3uL (1.8-7.7) Lymphocytes # (Auto) 1.7 x10^3/uL (1.0-4.8) Monocytes # (Auto) 0.2 x10^3/uL (0.0-1.1) Eosinophils # (Auto) 0.1 x10^3/uL (0.0-0.7) Basophils # (Auto) 0.0 x10^3/uL (0.0-0.2) Sodium Level 138 mmol/L (136-145) Potassium Level 4.0 mmol/L (3.5-5.1) Chloride Level 99 mmol/L (98-107) Carbon Dioxide Level 33 mmol/L (21-32) H Anion Gap 6 (6-14) Blood Urea Nitrogen 16 mg/dL (7-20) Creatinine 0.8 mg/dL (0.6-1.0) Estimated GFR (Cockcroft-Gault) 69.9 BUN/Creatinine Ratio 20 (6-20) Glucose Level 211 mg/dL (70-99) H Calcium Level 9.4 mg/dL (8.5-10.1) Total Bilirubin 0.3 mg/dL (0.2-1.0) Aspartate Amino Transferase (AST) 13 U/L (15-37) L Alanine Aminotransferase (ALT) 18 U/L (14-59) Alkaline Phosphatase 119 U/L (46-116) H Total Protein 8.1 g/dL (6.4-8.2) Albumin 3.6 g/dL (3.4-5.0) Albumin/Globulin Ratio 0.8 (1.0-1.7) L Test 10/30/18 19:26 Glucose (Fingerstick) 194 mg/dL (70-99) H Current Medications: Meds: Current Medications Acetaminophen (Tylenol) 650 mg PRN Q6HRS PRN PO PAIN / TEMP Last administered on 10/25/18 22:52; Start 08/08/18 at 20:00 Multi-Ingredient Ointment (Analgesic Josephine) 1 frank PRN QID PRN TP MUSCLE PAIN Last administered on 10/25/18 22:52; Start 08/08/18 at 20:00 Al Hydroxide/Mg Hydroxide (Mylanta Plus Xs) 15 ml PRN AFTMEALHC PRN PO DYSPEPSIA; Start 08/08/18 at 20:00 Magnesium Hydroxide (Milk Of Magnesia) 2,400 mg PRN QHS PRN PO CONSTIPATION Last administered on 10/22/18 21:16; Start 08/08/18 at 20:00 Memantine (Namenda) 10 mg BID PO Last administered on 10/30/18 21:12; Start 08/08/18 at 22:00 Quetiapine Fumarate (SEROquel) 25 mg DAILY PO Last administered on 09/05/18at 08 :51; Start 08/09/18 at 09:00; Stop 09/05/18 at 11:58; Status DC Quetiapine Fumarate (SEROquel) 75 mg HS PO Last administered on 09/21/18at 20: 38; Start 08/08/18 at 22:00; Stop 09/22/18 at 18:49; Status DC Venlafaxine HCl (Effexor) 50 mg TID PO Last administered on 08/10/18at 13:40; Start 08/09/18 at 09:00; Stop 08/10/18 at 17:54; Status DC Acetaminophen (Tylenol) 650 mg PRN Q4HRS PRN PO PAIN / TEMP; Start 08/08/18 at 21:30; Status Cancel Levothyroxine Sodium (Synthroid) 100 mcg DAILY06 PO Last administered on 06:29; Start 08/09/18 at 06:00 Amlodipine Besylate (Norvasc) 5 mg DAILY PO Last administered on 10/30/18 08: 17; Start 08/09/18 at 09:00 Aspirin (Children'S Aspirin) 81 mg DAILY PO Last administered on 10/30/18 08: 16; Start 08/09/18 at 09:00 Lisinopril (Prinivil) 20 mg DAILY PO Last administered on 10/30/18 08:18; Start 08/09/18 at 09:00 Vitamin D (Vitamin D3) 50,000 unit WEEKLY PO Last administered on 10/24/18 08: 55; Start 08/15/18 at 09:00 Heparin Sodium (Porcine) (Heparin Sq) 5,000 unit Q8HRS SQ Last administered on 08/27/18at 22:37; Start 08/08/18 at 22:00; Stop 08/27/18 at 23:00; Status DC Levetiracetam (Keppra) 500 mg BID PO Last administered on 1/30/19at 21:12; Start 08/08/18 at 22:00 Atorvastatin Calcium (Lipitor) 20 mg QHS PO Last administered on 10/30/18at 21: 12; Start 08/09/18 at 21:00 Insulin Human Lispro (HumaLOG) 0-5 UNITS TIDWMEALS SQ Last administered on 09/05at 09:13; Start 08/09/18 at 08:00; Stop 09/05/18 at 14:16; Status DC Dextrose 12.5 gm PRN Q15MIN PRN IV SEE COMMENTS; Start 08/09/18 at 05:45; Stop 09/05/18 at 14:16; Status DC Duloxetine HCl (Cymbalta) 30 mg DAILY PO Last administered on 08/12/18at 08:06 ; Start 08/11/18 at 09:00; Stop 08/12/18 at 09:02; Status DC Duloxetine HCl (Cymbalta) 60 mg DAILY PO Last administered on 09/28/18at 08:28 ; Start 08/13/18 at 09:00; Stop 09/28/18 at 19:49; Status DC Cephalexin HCl (Keflex) 500 mg TID PO Last administered on 08/20/18at 19:28; Start 08/11/18 at 09:00; Stop 08/21/18 at 08:59; Status DC Lactobacillus Rhamnosus (Culturelle) 1 cap BID PO Last administered on at 21:12; Start 08/11/18 at 09:00 Levothyroxine Sodium (Synthroid) 100 mcg 1X ONCE PO Last administered on 08/15at 06:23; Start 08/15/18 at 06:30; Stop 08/15/18 at 06:31; Status DC Olanzapine (ZyPREXA ZYDIS) 10 mg PRN BID PRN PO AGITATION; Start 08/24/18 at 17:45; Stop 09/22/18 at 12:01; Status DC Olanzapine (ZyPREXA IM) 5 mg PRN BID PRN IM AGITATION Last administered on at 17:53; Start 08/24/18 at 17:45; Stop 09/22/18 at 12:01; Status DC Cefpodoxime Proxetil (Vantin) 200 mg BID PO Last administered on 08/27/18at 08: 28; Start 08/25/18 at 17:30; Stop 08/27/18 at 17:27; Status DC Gabapentin (Neurontin) 100 mg BID PO Last administered on 09/13/18at 09:05; Start 08/25/18 at 21:00; Stop 09/13/18 at 16:30; Status DC Quetiapine Fumarate (SEROquel) 12.5 mg DAILY16 PO Last administered on at 16:29; Start 08/27/18 at 16:00; Stop 09/16/18 at 16:52; Status DC Heparin Sodium (Porcine) (Heparin Sodium) 5,000 unit Q8HRS SQ Last administered on 09/25/18at 13:45; Start 08/28/18 at 06:00; Stop 09/25/18 at 18 :16; Status DC Ciprofloxacin (Cipro) 500 mg BID PO Last administered on 09/06/18at 08:09; Start 08/27/18 at 21:00; Stop 09/06/18 at 20:59; Status DC Insulin Human Lispro (HumaLOG) 0-9 UNITS TIDWMEALS SQ Last administered on 10/30 17:24; Start 09/05/18 at 17:00 Dextrose 12.5 gm PRN Q15MIN PRN IV SEE COMMENTS; Start 09/05/18 at 14:15 Gabapentin (Neurontin) 200 mg TID PO Last administered on 10/30/18 21:12; Start 09/13/18 at 21:00 Bupropion HCl (Wellbutrin Xl) 150 mg DAILY PO Last administered on 10/30/18 08 :18; Start 09/17/18 at 09:00 Insulin Glargine (Lantus) 15 units QHS SQ Last administered on 10/30/18 21:51 ; Start 09/19/18 at 21:00 Olanzapine (ZyPREXA ZYDIS) 2.5 mg PRN Q2HR PRN PO PSYCHOSIS Last administered on 10/21/18 14:33; Start 09/22/18 at 12:00 Quetiapine Fumarate (SEROquel) 50 mg HS PO Last administered on 09/27/18at 21: 28; Start 09/22/18 at 21:00; Stop 09/28/18 at 19:49; Status DC Enoxaparin Sodium (Lovenox 40mg Syringe) 40 mg Q24H SQ Last administered on 21:13; Start 09/25/18 at 21:00 Duloxetine HCl (Cymbalta) 60 mg HS PO Last administered on 10/30/18 21:12; Start 09/29/18 at 21:00 Quetiapine Fumarate (SEROquel) 25 mg HS PO Last administered on 09/29/18at 20: 59; Start 09/28/18 at 21:00; Stop 09/30/18 at 17:23; Status DC Aripiprazole (Abilify) 2.5 mg QHS PO Last administered on 10/28/18 20:34; Start 09/30/18 at 21:00; Stop 10/29/18 at 18:40; Status DC Guaifenesin (Robitussin Dm) 10 ml PRN Q6HRS PRN PO COUGH Last administered on 19:11; Start 10/02/18 at 15:00 Nitrofurantoin Macrocrystals (Macrobid) 100 mg QHS PO Last administered on 10/30 21:11; Start 10/03/18 at 21:00 Cetirizine HCl (ZyrTEC) 10 mg DAILY PO Last administered on 10/30/18 08:19; Start 10/12/18 at 09:00 Docusate Sodium (Colace) 100 mg BID PO Last administered on 10/30/18 21:12; Start 10/18/18 at 21:00 Polyethylene Glycol (miraLAX) 17 gm DAILY PO Last administered on 10/30/18 08: 16; Start 10/19/18 at 09:00 Nystatin (Mycostatin) 5 ml QID SWSW Last administered on 10/28/18 17:46; Start 10/19/18 at 17:00; Stop 10/29/18 at 16:59; Status DC Nitroglycerin (Nitrostat) 0.4 mg PRN Q5MIN PRN SL CHEST PAIN Last administered on 10/25/18 23:19; Start 10/25/18 at 23:15 Active Scripts Active Reported Seroquel (Quetiapine Fumarate) 25 Mg Tablet 12.5 Mg PO DAILY16 Olanzapine 10 Mg Tablet 10 Mg PO PRN BID PRN Olanzapine Inj (Olanzapine) 10 Mg Vial 5 Mg IM PRN BID PRN Analgesic Josephine (Methyl Salicylate/Menthol) 28 Gm Oint...g. 1 Frank TP PRN QID PRN Milk Of Magnesia (Magnesium Hydroxide) 2,400 Mg/10 Ml Oral.susp 2,400 Mg PO PRN QHS PRN Advanced Antacid Liquid (Mag Hydrox/Al Hydrox/Simeth) 355 Ml Oral.susp 15 Ml PO PRN AFTMEALHC PRN Culturelle (Lactobacillus Rhamnosus Gg) 1 Each Cap.sprink 1 Cap PO BID Humalog (Insulin Lispro) 100 Unit/1 Ml Cartridge 0-5 Unit SQ TIDWMEALS Gabapentin 100 Mg Capsule 100 Mg PO BID Cymbalta (Duloxetine Hcl) 60 Mg Capsule.dr 60 Mg PO DAILY Ciprofloxacin Hcl 500 Mg Tablet 500 Mg PO BID Venlafaxine Hcl Er (Venlafaxine Hcl) 150 Mg Tab.er.24 150 Mg PO DAILYWBKFT Quetiapine Fumarate 25 Mg Tablet 25 Mg PO DAILY Seroquel (Quetiapine Fumarate) 25 Mg Tablet 75 Mg PO QHS Namenda (Memantine Hcl) 10 Mg Tablet 10 Mg PO BID Lovastatin 40 Mg Tablet 80 Mg PO QHS Levothyroxine Sodium 100 Mcg Tablet 100 Mcg PO DAILYAC Keppra (Levetiracetam) 500 Mg Tablet 500 Mg PO BID Heparin 5,000 Unit/5 ml-Ns (Heparin Sod,Porcine/0.9 % NaCl) 5,000 Unit/5 Ml Syringe 5,000 Unit IM Q8HRS Vitamin D2 (Ergocalciferol (Vitamin D2)) 50,000 Unit Capsule 50,000 Unit PO WEEKLY Benazepril Hcl 20 Mg Tablet 20 Mg PO DAILY Aspirin 81 Mg Tab.chew 81 Mg PO DAILY Amlodipine Besylate 5 Mg Tablet 5 Mg PO DAILY Tylenol (Acetaminophen) 325 Mg Tablet 650 Mg PO PRN Q4HRS PRN I have reviewed the current psychotropics carefully including drug interactions. Risk benefit ratio favors no change other than as noted in my dictated progress note. Diagnosis: Problems: (1) Anxiety disorder (2) Mild cognitive disorder (3) Major depressive disorder, recurrent episode (4) Impulse control disorder ANTONIA BAILEY MD Oct 30, 2018 22:46
--- NOTE | 2018-10-31 03:25 | PN ---
DATE: 10/29/2018 This is a late entry for 10/29/2018 covers elements not covered in my initial note. SUBJECTIVE: I met with the patient in the evening. The patient slept 6 hours previous night. She has been still tired during the day at times and we will stop the daytime Abilify due to sedation. REVIEW OF SYSTEMS: Ambulation impaired, in wheelchair. No CV, , pulmonary, eye system symptoms on review. MENTAL STATUS EXAM: Oriented to herself, situation. Speech has some latency, coherent, often responses monosyllabic. Abstraction fair, computation impaired, language function intact, attention span short. Mood and affect still withdrawn. LABORATORY DATA: Reviewed. IMPRESSION: Major depressive disorder with psychotic features. Rest unchanged. PLAN: Continue psychotropics from initial note. Stop the Abilify. Rest unchanged. MAN Han BAILEY MD DR: RAYMON/christen JOB#: [id number] / [id number]
[2018-10-31] MEDS: LEVOTHYROXINE 100 MCG TABLET PO SCH ×2 (06:23→08:47)
[2018-10-31] MEDS: ACETAMINOPHEN 325 MG TABLET PO PRN (06:23)
[2018-10-31 06:58] VITALS: BP 124/82
[2018-10-31] MEDS: POLYETHYLENE GLYCOL 3350 17 GM PACKET. PO SCH (08:46)
[2018-10-31] MEDS: INSULIN LISPRO 300 UNITS/3 ML INSULN.PEN. SQ SCH ×3 (08:46→17:21)
[2018-10-31] MEDS: LISINOPRIL 20 MG TABLET PO SCH (08:47)
[2018-10-31] MEDS: DOCUSATE SODIUM 100 MG CAPSULE PO SCH ×2 (08:47→20:19)
[2018-10-31] MEDS: LACTOBACILLUS RHAMNOSUS GG 1 CAPSULE. PO SCH ×2 (08:47→20:18)
[2018-10-31] MEDS: ASPIRIN 81 MG TAB.CHEW PO SCH (08:47)
[2018-10-31] MEDS: CETIRIZINE HCL 10 MG TABLET PO SCH (08:47)
[2018-10-31] MEDS: levETIRAcetam 500 MG TABLET PO SCH ×2 (08:47→20:18)
[2018-10-31] MEDS: MEMANTINE 10 MG TABLET. PO SCH ×2 (08:48→20:18)
[2018-10-31] MEDS: amLODIPine BESYLATE 5 MG TABLET PO SCH (08:48)
[2018-10-31] MEDS: buPROPion XL 150 MG TAB.ER.24H PO SCH (08:48)
[2018-10-31] MEDS: GABAPENTIN 100 MG CAPSULE. PO SCH ×3 (08:49→20:21)
[2018-10-31] MEDS: CHOLECALCIFEROL (VITAMIN D3) 50,000 UNIT CAPSULE PO SCH (08:49)
[2018-10-31 16:25] VITALS: BP 123/72
[2018-10-31] MEDS: DULoxetine HCL 60 MG CAPSULE.DR PO SCH (20:18)
[2018-10-31] MEDS: NITROFURANTOIN MONOHYD/M-CRYST 100 MG CAPSULE. PO SCH (20:18)
[2018-10-31] MEDS: ENOXAPARIN 40 MG/0.4 ML SYRINGE. SQ SCH (20:19)
[2018-10-31] MEDS: ATORVASTATIN CALCIUM 20 MG TABLET PO SCH (20:19)
[2018-10-31] MEDS: INSULIN GLARGINE 300 UNITS/3 ML INSULN.PEN. SQ SCH (20:20)
--- NOTE | 2018-10-31 22:42 | PDOC ---
Exam Note: José Miguel Note: Please also refer to the separate dictated note~for this date of service dictated separately.~Patient seen individually. Discussed the patient with Nursing staff reviewed the chart.~Reviewed interim history and current functioning. Reviewed vital signs,~Labs/ Radiology~and current medications noted below. Continue current treatment with the changes noted in the dictated addendum note Assessment: Vital Signs: Vital Signs Date Time Temp Pulse Resp B/P (MAP) Pulse Ox O2 Delivery O2 Flow Rate FiO2 10/31/18 16:25 97.8 79 20 123/72 (89) 99 10/29/18 16:17 Room Air I&O Intake and Output 10/31/18 07:01 Intake Total 1085 ml Balance 1085 ml Intake Oral 1085 ml # Voids 1 # Bowel Movements 1 Labs: Laboratory Tests Test 10/31/18 07:32 10/31/18 12:14 10/31/18 16:47 10/31/18 19:19 Glucose (Fingerstick) 148 mg/dL (70-99) H 238 mg/dL (70-99) H 174 mg/dL (70-99) H 191 mg/dL (70-99) H Current Medications: Meds: Current Medications Acetaminophen (Tylenol) 650 mg PRN Q6HRS PRN PO PAIN / TEMP Last administered on 10/31/18 06:23; Start 08/08/18 at 20:00 Multi-Ingredient Ointment (Analgesic Bicknell) 1 frank PRN QID PRN TP MUSCLE PAIN Last administered on 10/25/18 22:52; Start 08/08/18 at 20:00 Al Hydroxide/Mg Hydroxide (Mylanta Plus Xs) 15 ml PRN AFTMEALHC PRN PO DYSPEPSIA; Start 08/08/18 at 20:00 Magnesium Hydroxide (Milk Of Magnesia) 2,400 mg PRN QHS PRN PO CONSTIPATION Last administered on 10/22/18 21:16; Start 08/08/18 at 20:00 Memantine (Namenda) 10 mg BID PO Last administered on 10/31/18 20:18; Start 08/08/18 at 22:00 Quetiapine Fumarate (SEROquel) 25 mg DAILY PO Last administered on 09/05/18at 08 :51; Start 08/09/18 at 09:00; Stop 09/05/18 at 11:58; Status DC Quetiapine Fumarate (SEROquel) 75 mg HS PO Last administered on 09/21/18at 20: 38; Start 08/08/18 at 22:00; Stop 09/22/18 at 18:49; Status DC Venlafaxine HCl (Effexor) 50 mg TID PO Last administered on 08/10/18at 13:40; Start 08/09/18 at 09:00; Stop 08/10/18 at 17:54; Status DC Acetaminophen (Tylenol) 650 mg PRN Q4HRS PRN PO PAIN / TEMP; Start 08/08/18 at 21:30; Status Cancel Levothyroxine Sodium (Synthroid) 100 mcg DAILY06 PO Last administered on 08:47; Start 08/09/18 at 06:00 Amlodipine Besylate (Norvasc) 5 mg DAILY PO Last administered on 10/31/18 08: 48; Start 08/09/18 at 09:00 Aspirin (Children'S Aspirin) 81 mg DAILY PO Last administered on 10/31/18 08: 47; Start 08/09/18 at 09:00 Lisinopril (Prinivil) 20 mg DAILY PO Last administered on 10/31/18 08:47; Start 08/09/18 at 09:00 Vitamin D (Vitamin D3) 50,000 unit WEEKLY PO Last administered on 10/31/18 08: 49; Start 08/15/18 at 09:00 Heparin Sodium (Porcine) (Heparin Sq) 5,000 unit Q8HRS SQ Last administered on 08/27/18at 22:37; Start 08/08/18 at 22:00; Stop 08/27/18 at 23:00; Status DC Levetiracetam (Keppra) 500 mg BID PO Last administered on 10/31/18 20:18; Start 08/08/18 at 22:00 Atorvastatin Calcium (Lipitor) 20 mg QHS PO Last administered on 10/31/18 20: 19; Start 08/09/18 at 21:00 Insulin Human Lispro (HumaLOG) 0-5 UNITS TIDWMEALS SQ Last administered on 09/05at 09:13; Start 08/09/18 at 08:00; Stop 09/05/18 at 14:16; Status DC Dextrose 12.5 gm PRN Q15MIN PRN IV SEE COMMENTS; Start 08/09/18 at 05:45; Stop 09/05/18 at 14:16; Status DC Duloxetine HCl (Cymbalta) 30 mg DAILY PO Last administered on 08/12/18at 08:06 ; Start 08/11/18 at 09:00; Stop 08/12/18 at 09:02; Status DC Duloxetine HCl (Cymbalta) 60 mg DAILY PO Last administered on 09/28/18at 08:28 ; Start 08/13/18 at 09:00; Stop 09/28/18 at 19:49; Status DC Cephalexin HCl (Keflex) 500 mg TID PO Last administered on 08/20/18at 19:28; Start 08/11/18 at 09:00; Stop 08/21/18 at 08:59; Status DC Lactobacillus Rhamnosus (Culturelle) 1 cap BID PO Last administered on at 20:18; Start 08/11/18 at 09:00 Levothyroxine Sodium (Synthroid) 100 mcg 1X ONCE PO Last administered on 08/15at 06:23; Start 08/15/18 at 06:30; Stop 08/15/18 at 06:31; Status DC Olanzapine (ZyPREXA ZYDIS) 10 mg PRN BID PRN PO AGITATION; Start 08/24/18 at 17:45; Stop 09/22/18 at 12:01; Status DC Olanzapine (ZyPREXA IM) 5 mg PRN BID PRN IM AGITATION Last administered on at 17:53; Start 08/24/18 at 17:45; Stop 09/22/18 at 12:01; Status DC Cefpodoxime Proxetil (Vantin) 200 mg BID PO Last administered on 08/27/18at 08: 28; Start 08/25/18 at 17:30; Stop 08/27/18 at 17:27; Status DC Gabapentin (Neurontin) 100 mg BID PO Last administered on 09/13/18at 09:05; Start 08/25/18 at 21:00; Stop 09/13/18 at 16:30; Status DC Quetiapine Fumarate (SEROquel) 12.5 mg DAILY16 PO Last administered on at 16:29; Start 08/27/18 at 16:00; Stop 09/16/18 at 16:52; Status DC Heparin Sodium (Porcine) (Heparin Sodium) 5,000 unit Q8HRS SQ Last administered on 09/25/18at 13:45; Start 08/28/18 at 06:00; Stop 09/25/18 at 18 :16; Status DC Ciprofloxacin (Cipro) 500 mg BID PO Last administered on 09/06/18at 08:09; Start 08/27/18 at 21:00; Stop 09/06/18 at 20:59; Status DC Insulin Human Lispro (HumaLOG) 0-9 UNITS TIDWMEALS SQ Last administered on 10/31 17:21; Start 09/05/18 at 17:00 Dextrose 12.5 gm PRN Q15MIN PRN IV SEE COMMENTS; Start 09/05/18 at 14:15 Gabapentin (Neurontin) 200 mg TID PO Last administered on 10/31/18 20:21; Start 09/13/18 at 21:00 Bupropion HCl (Wellbutrin Xl) 150 mg DAILY PO Last administered on 10/31/18 08 :48; Start 09/17/18 at 09:00 Insulin Glargine (Lantus) 15 units QHS SQ Last administered on 10/31/18 20:20 ; Start 09/19/18 at 21:00 Olanzapine (ZyPREXA ZYDIS) 2.5 mg PRN Q2HR PRN PO PSYCHOSIS Last administered on 10/21/18 14:33; Start 09/22/18 at 12:00 Quetiapine Fumarate (SEROquel) 50 mg HS PO Last administered on 09/27/18at 21: 28; Start 09/22/18 at 21:00; Stop 09/28/18 at 19:49; Status DC Enoxaparin Sodium (Lovenox 40mg Syringe) 40 mg Q24H SQ Last administered on 20:19; Start 09/25/18 at 21:00 Duloxetine HCl (Cymbalta) 60 mg HS PO Last administered on 10/31/18 20:18; Start 09/29/18 at 21:00 Quetiapine Fumarate (SEROquel) 25 mg HS PO Last administered on 12/30/18at 20: 59; Start 09/28/18 at 21:00; Stop 09/30/18 at 17:23; Status DC Aripiprazole (Abilify) 2.5 mg QHS PO Last administered on 10/28/18at 20:34; Start 09/30/18 at 21:00; Stop 10/29/18 at 18:40; Status DC Guaifenesin (Robitussin Dm) 10 ml PRN Q6HRS PRN PO COUGH Last administered on at 19:11; Start 10/02/18 at 15:00 Nitrofurantoin Macrocrystals (Macrobid) 100 mg QHS PO Last administered on 10/31 20:18; Start 10/03/18 at 21:00 Cetirizine HCl (ZyrTEC) 10 mg DAILY PO Last administered on 10/31/18at 08:47; Start 10/12/18 at 09:00 Docusate Sodium (Colace) 100 mg BID PO Last administered on 10/31/18at 20:19; Start 10/18/18 at 21:00 Polyethylene Glycol (miraLAX) 17 gm DAILY PO Last administered on 10/31/18 08: 46; Start 10/19/18 at 09:00 Nystatin (Mycostatin) 5 ml QID SWSW Last administered on 10/28/18at 17:46; Start 10/19/18 at 17:00; Stop 10/29/18 at 16:59; Status DC Nitroglycerin (Nitrostat) 0.4 mg PRN Q5MIN PRN SL CHEST PAIN Last administered on 10/25/18at 23:19; Start 10/25/18 at 23:15 Active Scripts Active Reported Seroquel (Quetiapine Fumarate) 25 Mg Tablet 12.5 Mg PO DAILY16 Olanzapine 10 Mg Tablet 10 Mg PO PRN BID PRN Olanzapine Inj (Olanzapine) 10 Mg Vial 5 Mg IM PRN BID PRN Analgesic [place]icknell (Methyl Salicylate/Menthol) 28 Gm Oint...g. 1 Frank TP PRN QID PRN Milk Of Magnesia (Magnesium Hydroxide) 2,400 Mg/10 Ml Oral.susp 2,400 Mg PO PRN QHS PRN Advanced Antacid Liquid (Mag Hydrox/Al Hydrox/Simeth) 355 Ml Oral.susp 15 Ml PO PRN AFTMEALHC PRN Culturelle (Lactobacillus Rhamnosus Gg) 1 Each Cap.sprink 1 Cap PO BID Humalog (Insulin Lispro) 100 Unit/1 Ml Cartridge 0-5 Unit SQ TIDWMEALS Gabapentin 100 Mg Capsule 100 Mg PO BID Cymbalta (Duloxetine Hcl) 60 Mg Capsule.dr 60 Mg PO DAILY Ciprofloxacin Hcl 500 Mg Tablet 500 Mg PO BID Venlafaxine Hcl Er (Venlafaxine Hcl) 150 Mg Tab.er.24 150 Mg PO DAILYWBKFT Quetiapine Fumarate 25 Mg Tablet 25 Mg PO DAILY Seroquel (Quetiapine Fumarate) 25 Mg Tablet 75 Mg PO QHS Namenda (Memantine Hcl) 10 Mg Tablet 10 Mg PO BID Lovastatin 40 Mg Tablet 80 Mg PO QHS Levothyroxine Sodium 100 Mcg Tablet 100 Mcg PO DAILYAC Keppra (Levetiracetam) 500 Mg Tablet 500 Mg PO BID Heparin 5,000 Unit/5 ml-Ns (Heparin Sod,Porcine/0.9 % NaCl) 5,000 Unit/5 Ml Syringe 5,000 Unit IM Q8HRS Vitamin D2 (Ergocalciferol (Vitamin D2)) 50,000 Unit Capsule 50,000 Unit PO WEEKLY Benazepril Hcl 20 Mg Tablet 20 Mg PO DAILY Aspirin 81 Mg Tab.chew 81 Mg PO DAILY Amlodipine Besylate 5 Mg Tablet 5 Mg PO DAILY Tylenol (Acetaminophen) 325 Mg Tablet 650 Mg PO PRN Q4HRS PRN I have reviewed the current psychotropics carefully including drug interactions. Risk benefit ratio favors no change other than as noted in my dictated progress note. Diagnosis: Problems: (1) Anxiety disorder (2) Mild cognitive disorder (3) Major depressive disorder, recurrent episode (4) Impulse control disorder ANTONIA BAILEY MD Oct 31, 2018 22:42
[2018-11-01 06:33] VITALS: BP 121/69
[2018-11-01] MEDS ORDERED: LEVOTHYROXINE 100 MCG TABLET PO ONE (07:00)
[2018-11-01] MEDS: INSULIN LISPRO 300 UNITS/3 ML INSULN.PEN. SQ SCH ×3 (08:17→17:35)
[2018-11-01] MEDS: POLYETHYLENE GLYCOL 3350 17 GM PACKET. PO SCH (08:18)
[2018-11-01] MEDS: MEMANTINE 10 MG TABLET. PO SCH ×2 (08:18→20:14)
[2018-11-01] MEDS: CETIRIZINE HCL 10 MG TABLET PO SCH (08:18)
[2018-11-01] MEDS: buPROPion XL 150 MG TAB.ER.24H PO SCH (08:19)
[2018-11-01] MEDS: LISINOPRIL 20 MG TABLET PO SCH (08:19)
[2018-11-01] MEDS: ASPIRIN 81 MG TAB.CHEW PO SCH (08:19)
[2018-11-01] MEDS: amLODIPine BESYLATE 5 MG TABLET PO SCH (08:19)
[2018-11-01] MEDS: levETIRAcetam 500 MG TABLET PO SCH ×2 (08:19→20:14)
[2018-11-01] MEDS: DOCUSATE SODIUM 100 MG CAPSULE PO SCH ×2 (08:19→20:14)
[2018-11-01] MEDS: LACTOBACILLUS RHAMNOSUS GG 1 CAPSULE. PO SCH ×2 (08:20→20:14)
[2018-11-01] MEDS: GABAPENTIN 100 MG CAPSULE. PO SCH ×3 (08:21→20:14)
[2018-11-01 16:12] VITALS: BP 122/80
[2018-11-01] MEDS: ATORVASTATIN CALCIUM 20 MG TABLET PO SCH (20:14)
[2018-11-01] MEDS: DULoxetine HCL 60 MG CAPSULE.DR PO SCH (20:14)
[2018-11-01] MEDS: NITROFURANTOIN MONOHYD/M-CRYST 100 MG CAPSULE. PO SCH (20:14)
[2018-11-01] MEDS: INSULIN GLARGINE 300 UNITS/3 ML INSULN.PEN. SQ SCH (20:14)
[2018-11-01] MEDS: ENOXAPARIN 40 MG/0.4 ML SYRINGE. SQ SCH (20:17)
--- NOTE | 2018-11-01 22:48 | PN ---
DATE: 10/30/2018 PSYCHIATRIC PROGRESS NOTE This late entry 10/30/2018 covers elements not covered in my initial note. SUBJECTIVE: I met with the patient in the evening. The patient slept 7-3/4 hours previous night. She has generally had a good night and during the day and has done better, more awake, alert, interactive. REVIEW OF SYSTEMS: Ambulation impaired, in wheelchair. No CV, , pulmonary, eye system symptoms on review. MENTAL STATUS EXAM: Oriented to herself and situation. Speech has some latency, coherent. Abstraction fair, computation impaired, language function intact. Mood and affect showing improvement. LABORATORY DATA: Reviewed. IMPRESSION: Unchanged from initial note. PLAN: No change from initial note. MAN Han BAILEY MD DR: RAYMON/christen JOB#: [id number] / [id number]
--- NOTE | 2018-11-01 23:03 | PDOC ---
Exam Note: José Miguel Note: Please also refer to the separate dictated note~for this date of service dictated separately.~Patient seen individually. Discussed the patient with Nursing staff reviewed the chart.~Reviewed interim history and current functioning. Reviewed vital signs,~Labs/ Radiology~and current medications noted below. Continue current treatment with the changes noted in the dictated addendum note Assessment: Vital Signs: Vital Signs Date Time Temp Pulse Resp B/P (MAP) Pulse Ox O2 Delivery O2 Flow Rate FiO2 11/01/18 16:12 97.5 82 16 122/80 (94) 98 Room Air I&O Intake and Output 11/01/18 07:01 Intake Total 1085 ml Balance 1085 ml Intake Oral 1085 ml # Voids 1 # Bowel Movements 1 Labs: Laboratory Tests Test 11/01/18 07:00 11/01/18 11:31 11/01/18 16:47 11/01/18 19:01 Glucose (Fingerstick) 153 mg/dL (70-99) H 240 mg/dL (70-99) H 202 mg/dL (70-99) H 191 mg/dL (70-99) H Current Medications: Meds: Current Medications Acetaminophen (Tylenol) 650 mg PRN Q6HRS PRN PO PAIN / TEMP Last administered on 10/31/18 06:23; Start 08/08/18 at 20:00 Multi-Ingredient Ointment (Analgesic [place]) 1 frank PRN QID PRN TP MUSCLE PAIN Last administered on 10/25/18 22:52; Start 08/08/18 at 20:00 Al Hydroxide/Mg Hydroxide (Mylanta Plus Xs) 15 ml PRN AFTMEALHC PRN PO DYSPEPSIA; Start 08/08/18 at 20:00 Magnesium Hydroxide (Milk Of Magnesia) 2,400 mg PRN QHS PRN PO CONSTIPATION Last administered on 10/22/18 21:16; Start 08/08/18 at 20:00 Memantine (Namenda) 10 mg BID PO Last administered on 11/01/18 20:14; Start at 22:00 Quetiapine Fumarate (SEROquel) 25 mg DAILY PO Last administered on 09/05/18at 08 :51; Start 08/09/18 at 09:00; Stop 09/05/18 at 11:58; Status DC Quetiapine Fumarate (SEROquel) 75 mg HS PO Last administered on 09/21/18at 20: 38; Start 08/08/18 at 22:00; Stop 09/22/18 at 18:49; Status DC Venlafaxine HCl (Effexor) 50 mg TID PO Last administered on 08/10/18at 13:40; Start 08/09/18 at 09:00; Stop 08/10/18 at 17:54; Status DC Acetaminophen (Tylenol) 650 mg PRN Q4HRS PRN PO PAIN / TEMP; Start 08/08/18 at 21:30; Status Cancel Levothyroxine Sodium (Synthroid) 100 mcg DAILY06 PO Last administered on 08:47; Start 08/09/18 at 06:00 Amlodipine Besylate (Norvasc) 5 mg DAILY PO Last administered on 11/01/18 08:19 ; Start 08/09/18 at 09:00 Aspirin (Children'S Aspirin) 81 mg DAILY PO Last administered on 11/01/18 08:19 ; Start 08/09/18 at 09:00 Lisinopril (Prinivil) 20 mg DAILY PO Last administered on 11/01/18 08:19; Start 08/09/18 at 09:00 Vitamin D (Vitamin D3) 50,000 unit WEEKLY PO Last administered on 10/31/18 08: 49; Start 08/15/18 at 09:00 Heparin Sodium (Porcine) (Heparin Sq) 5,000 unit Q8HRS SQ Last administered on 08/27/18at 22:37; Start 08/08/18 at 22:00; Stop 08/27/18 at 23:00; Status DC Levetiracetam (Keppra) 500 mg BID PO Last administered on 11/01/18 20:14; Start 08/08/18 at 22:00 Atorvastatin Calcium (Lipitor) 20 mg QHS PO Last administered on 11/01/18 20:14 ; Start 08/09/18 at 21:00 Insulin Human Lispro (HumaLOG) 0-5 UNITS TIDWMEALS SQ Last administered on 09/05at 09:13; Start 08/09/18 at 08:00; Stop 09/05/18 at 14:16; Status DC Dextrose 12.5 gm PRN Q15MIN PRN IV SEE COMMENTS; Start 08/09/18 at 05:45; Stop 09/05/18 at 14:16; Status DC Duloxetine HCl (Cymbalta) 30 mg DAILY PO Last administered on 08/12/18at 08:06 ; Start 08/11/18 at 09:00; Stop 08/12/18 at 09:02; Status DC Duloxetine HCl (Cymbalta) 60 mg DAILY PO Last administered on 09/28/18at 08:28 ; Start 08/13/18 at 09:00; Stop 09/28/18 at 19:49; Status DC Cephalexin HCl (Keflex) 500 mg TID PO Last administered on 08/20/18at 19:28; Start 08/11/18 at 09:00; Stop 08/21/18 at 08:59; Status DC Lactobacillus Rhamnosus (Culturelle) 1 cap BID PO Last administered on at 20:14; Start 08/11/18 at 09:00 Levothyroxine Sodium (Synthroid) 100 mcg 1X ONCE PO Last administered on 08/15at 06:23; Start 08/15/18 at 06:30; Stop 08/15/18 at 06:31; Status DC Olanzapine (ZyPREXA ZYDIS) 10 mg PRN BID PRN PO AGITATION; Start 08/24/18 at 17:45; Stop 09/22/18 at 12:01; Status DC Olanzapine (ZyPREXA IM) 5 mg PRN BID PRN IM AGITATION Last administered on at 17:53; Start 08/24/18 at 17:45; Stop 09/22/18 at 12:01; Status DC Cefpodoxime Proxetil (Vantin) 200 mg BID PO Last administered on 08/27/18at 08: 28; Start 08/25/18 at 17:30; Stop 08/27/18 at 17:27; Status DC Gabapentin (Neurontin) 100 mg BID PO Last administered on 09/13/18at 09:05; Start 08/25/18 at 21:00; Stop 09/13/18 at 16:30; Status DC Quetiapine Fumarate (SEROquel) 12.5 mg DAILY16 PO Last administered on at 16:29; Start 08/27/18 at 16:00; Stop 09/16/18 at 16:52; Status DC Heparin Sodium (Porcine) (Heparin Sodium) 5,000 unit Q8HRS SQ Last administered on 09/25/18at 13:45; Start 08/28/18 at 06:00; Stop 09/25/18 at 18 :16; Status DC Ciprofloxacin (Cipro) 500 mg BID PO Last administered on 09/06/18at 08:09; Start 08/27/18 at 21:00; Stop 09/06/18 at 20:59; Status DC Insulin Human Lispro (HumaLOG) 0-9 UNITS TIDWMEALS SQ Last administered on 17:35; Start 09/05/18 at 17:00 Dextrose 12.5 gm PRN Q15MIN PRN IV SEE COMMENTS; Start 09/05/18 at 14:15 Gabapentin (Neurontin) 200 mg TID PO Last administered on 11/01/18 20:14; Start 09/13/18 at 21:00 Bupropion HCl (Wellbutrin Xl) 150 mg DAILY PO Last administered on 11/01/18 08: 19; Start 09/17/18 at 09:00 Insulin Glargine (Lantus) 15 units QHS SQ Last administered on 11/01/18 20:14; Start 09/19/18 at 21:00 Olanzapine (ZyPREXA ZYDIS) 2.5 mg PRN Q2HR PRN PO PSYCHOSIS Last administered on 10/21/18 14:33; Start 09/22/18 at 12:00 Quetiapine Fumarate (SEROquel) 50 mg HS PO Last administered on 09/27/18at 21: 28; Start 09/22/18 at 21:00; Stop 09/28/18 at 19:49; Status DC Enoxaparin Sodium (Lovenox 40mg Syringe) 40 mg Q24H SQ Last administered on 11/01 20:17; Start 09/25/18 at 21:00 Duloxetine HCl (Cymbalta) 60 mg HS PO Last administered on 11/01/18 20:14; Start 09/29/18 at 21:00 Quetiapine Fumarate (SEROquel) 25 mg HS PO Last administered on 09/29/18at 20: 59; Start 09/28/18 at 21:00; Stop 09/30/18 at 17:23; Status DC Aripiprazole (Abilify) 2.5 mg QHS PO Last administered on 10/28/18at 20:34; Start 09/30/18 at 21:00; Stop 10/29/18 at 18:40; Status DC Guaifenesin (Robitussin Dm) 10 ml PRN Q6HRS PRN PO COUGH Last administered on at 19:11; Start 10/02/18 at 15:00 Nitrofurantoin Macrocrystals (Macrobid) 100 mg QHS PO Last administered on 20:14; Start 10/03/18 at 21:00 Cetirizine HCl (ZyrTEC) 10 mg DAILY PO Last administered on 11/01/18at 08:18; Start 10/12/18 at 09:00 Docusate Sodium (Colace) 100 mg BID PO Last administered on 11/01/18at 20:14; Start 10/18/18 at 21:00 Polyethylene Glycol (miraLAX) 17 gm DAILY PO Last administered on 11/01/18 08: 18; Start 10/19/18 at 09:00 Nystatin (Mycostatin) 5 ml QID SWSW Last administered on 10/28/18at 17:46; Start 10/19/18 at 17:00; Stop 10/29/18 at 16:59; Status DC Nitroglycerin (Nitrostat) 0.4 mg PRN Q5MIN PRN SL CHEST PAIN Last administered on 10/25/18at 23:19; Start 10/25/18 at 23:15 Levothyroxine Sodium (Synthroid) 100 mcg 1X ONCE PO Last administered on at 06:37; Start 11/01/18 at 07:00; Stop 11/01/18 at 07:01; Status DC Active Scripts Active Reported Seroquel (Quetiapine Fumarate) 25 Mg Tablet 12.5 Mg PO DAILY16 Olanzapine 10 Mg Tablet 10 Mg PO PRN BID PRN Olanzapine Inj (Olanzapine) 10 Mg Vial 5 Mg IM PRN BID PRN Analgesic [place] (Methyl Salicylate/Menthol) 28 Gm Oint...g. 1 Frank TP PRN QID PRN Milk Of Magnesia (Magnesium Hydroxide) 2,400 Mg/10 Ml Oral.susp 2,400 Mg PO PRN QHS PRN Advanced Antacid Liquid (Mag Hydrox/Al Hydrox/Simeth) 355 Ml Oral.susp 15 Ml PO PRN AFTMEALHC PRN Culturelle (Lactobacillus Rhamnosus Gg) 1 Each Cap.sprink 1 Cap PO BID Humalog (Insulin Lispro) 100 Unit/1 Ml Cartridge 0-5 Unit SQ TIDWMEALS Gabapentin 100 Mg Capsule 100 Mg PO BID Cymbalta (Duloxetine Hcl) 60 Mg Capsule.dr 60 Mg PO DAILY Ciprofloxacin Hcl 500 Mg Tablet 500 Mg PO BID Venlafaxine Hcl Er (Venlafaxine Hcl) 150 Mg Tab.er.24 150 Mg PO DAILYWBKFT Quetiapine Fumarate 25 Mg Tablet 25 Mg PO DAILY Seroquel (Quetiapine Fumarate) 25 Mg Tablet 75 Mg PO QHS Namenda (Memantine Hcl) 10 Mg Tablet 10 Mg PO BID Lovastatin 40 Mg Tablet 80 Mg PO QHS Levothyroxine Sodium 100 Mcg Tablet 100 Mcg PO DAILYAC Keppra (Levetiracetam) 500 Mg Tablet 500 Mg PO BID Heparin 5,000 Unit/5 ml-Ns (Heparin Sod,Porcine/0.9 % NaCl) 5,000 Unit/5 Ml Syringe 5,000 Unit IM Q8HRS Vitamin D2 (Ergocalciferol (Vitamin D2)) 50,000 Unit Capsule 50,000 Unit PO WEEKLY Benazepril Hcl 20 Mg Tablet 20 Mg PO DAILY Aspirin 81 Mg Tab.chew 81 Mg PO DAILY Amlodipine Besylate 5 Mg Tablet 5 Mg PO DAILY Tylenol (Acetaminophen) 325 Mg Tablet 650 Mg PO PRN Q4HRS PRN I have reviewed the current psychotropics carefully including drug interactions. Risk benefit ratio favors no change other than as noted in my dictated progress note. Diagnosis: Problems: (1) Anxiety disorder (2) Mild cognitive disorder (3) Major depressive disorder, recurrent episode (4) Impulse control disorder ANTONIA BAILEY MD Nov 01, 2018 23:03
--- NOTE | 2018-11-01 23:20 | PN ---
DATE: 10/31/2018 PSYCHIATRIC PROGRESS NOTE This is a late entry 10/31/2018 covers elements not covered in my initial note. SUBJECTIVE: I met with the patient in the evening. The patient was staffed at a treatment team meeting with the entire team in the morning, reviewed her history, diagnosis, placement options. She slept 6-3/4 hours. Appetite 90%. Department of Mental Health report is awaited per the social service staff for placement. REVIEW OF SYSTEMS: Ambulation impaired, in wheelchair. No CV, , pulmonary, eye system symptoms on review. MENTAL STATUS EXAM: Oriented to herself, situation, less sedated, more interactive, abstraction fair, computation impaired, language function intact. Mood and affect is improved. LABORATORY DATA: Reviewed. IMPRESSION: Unchanged from initial note. PLAN: No change from initial note. MAN Han BAILEY MD DR: RAYMON/christen JOB#: [id number] / [id number]
[2018-11-02] MEDS: LEVOTHYROXINE 100 MCG TABLET PO SCH (06:07)
[2018-11-02 06:27] VITALS: BP 144/77
[2018-11-02] MEDS: POLYETHYLENE GLYCOL 3350 17 GM PACKET. PO SCH (08:06)
[2018-11-02] MEDS: DOCUSATE SODIUM 100 MG CAPSULE PO SCH ×2 (08:07→19:21)
[2018-11-02] MEDS: LISINOPRIL 20 MG TABLET PO SCH (08:08)
[2018-11-02] MEDS: amLODIPine BESYLATE 5 MG TABLET PO SCH (08:09)
[2018-11-02] MEDS: levETIRAcetam 500 MG TABLET PO SCH ×2 (08:09→19:21)
[2018-11-02] MEDS: LACTOBACILLUS RHAMNOSUS GG 1 CAPSULE. PO SCH ×2 (08:09→19:21)
[2018-11-02] MEDS: MEMANTINE 10 MG TABLET. PO SCH ×2 (08:10→19:21)
[2018-11-02] MEDS: ASPIRIN 81 MG TAB.CHEW PO SCH (08:10)
[2018-11-02] MEDS: GABAPENTIN 100 MG CAPSULE. PO SCH ×3 (08:10→19:21)
[2018-11-02] MEDS: buPROPion XL 150 MG TAB.ER.24H PO SCH (08:10)
[2018-11-02] MEDS: CETIRIZINE HCL 10 MG TABLET PO SCH (08:13)
[2018-11-02] MEDS: INSULIN LISPRO 300 UNITS/3 ML INSULN.PEN. SQ SCH ×3 (08:16→17:12)
[2018-11-02 16:18] VITALS: BP 119/73
[2018-11-02] MEDS: NITROFURANTOIN MONOHYD/M-CRYST 100 MG CAPSULE. PO SCH (19:20)
[2018-11-02] MEDS: ATORVASTATIN CALCIUM 20 MG TABLET PO SCH (19:21)
[2018-11-02] MEDS: DULoxetine HCL 60 MG CAPSULE.DR PO SCH (19:21)
[2018-11-02] MEDS: ENOXAPARIN 40 MG/0.4 ML SYRINGE. SQ SCH (19:21)
[2018-11-02] MEDS: INSULIN GLARGINE 300 UNITS/3 ML INSULN.PEN. SQ SCH (20:36)
--- NOTE | 2018-11-02 22:30 | PDOC ---
Exam Note: José Miguel Note: Please also refer to the separate dictated note~for this date of service dictated separately.~Patient seen individually. Discussed the patient with Nursing staff reviewed the chart.~Reviewed interim history and current functioning. Reviewed vital signs,~Labs/ Radiology~and current medications noted below. Continue current treatment with the changes noted in the dictated addendum note Assessment: Vital Signs: Vital Signs Date Time Temp Pulse Resp B/P (MAP) Pulse Ox O2 Delivery O2 Flow Rate FiO2 11/02/18 16:18 98.4 86 20 119/73 (88) 97 Room Air I&O Intake and Output 11/02/18 07:01 Intake Total 480 ml Balance 480 ml Intake Oral 480 ml # Bowel Movements 2 Labs: Laboratory Tests Test 11/02/18 06:59 11/02/18 11:41 11/02/18 19:09 Glucose (Fingerstick) 176 mg/dL (70-99) H 244 mg/dL (70-99) H 238 mg/dL (70-99) H Current Medications: Meds: Current Medications Acetaminophen (Tylenol) 650 mg PRN Q6HRS PRN PO PAIN / TEMP Last administered on 10/31/18 06:23; Start 08/08/18 at 20:00 Multi-Ingredient Ointment (Analgesic [place]) 1 frank PRN QID PRN TP MUSCLE PAIN Last administered on 10/25/18 22:52; Start 08/08/18 at 20:00 Al Hydroxide/Mg Hydroxide (Mylanta Plus Xs) 15 ml PRN AFTMEALHC PRN PO DYSPEPSIA; Start 08/08/18 at 20:00 Magnesium Hydroxide (Milk Of Magnesia) 2,400 mg PRN QHS PRN PO CONSTIPATION Last administered on 10/22/18 21:16; Start 08/08/18 at 20:00 Memantine (Namenda) 10 mg BID PO Last administered on 11/02/18 19:21; Start at 22:00 Quetiapine Fumarate (SEROquel) 25 mg DAILY PO Last administered on 09/05/18at 08 :51; Start 08/09/18 at 09:00; Stop 09/05/18 at 11:58; Status DC Quetiapine Fumarate (SEROquel) 75 mg HS PO Last administered on 09/21/18at 20: 38; Start 08/08/18 at 22:00; Stop 09/22/18 at 18:49; Status DC Venlafaxine HCl (Effexor) 50 mg TID PO Last administered on 08/10/18at 13:40; Start 08/09/18 at 09:00; Stop 08/10/18 at 17:54; Status DC Acetaminophen (Tylenol) 650 mg PRN Q4HRS PRN PO PAIN / TEMP; Start 08/08/18 at 21:30; Status Cancel Levothyroxine Sodium (Synthroid) 100 mcg DAILY06 PO Last administered on 06:07; Start 08/09/18 at 06:00 Amlodipine Besylate (Norvasc) 5 mg DAILY PO Last administered on 11/02/18 08:09 ; Start 08/09/18 at 09:00 Aspirin (Children'S Aspirin) 81 mg DAILY PO Last administered on 11/02/18 08:10 ; Start 08/09/18 at 09:00 Lisinopril (Prinivil) 20 mg DAILY PO Last administered on 11/02/18 08:08; Start 08/09/18 at 09:00 Vitamin D (Vitamin D3) 50,000 unit WEEKLY PO Last administered on 10/31/18 08: 49; Start 08/15/18 at 09:00 Heparin Sodium (Porcine) (Heparin Sq) 5,000 unit Q8HRS SQ Last administered on 08/27/18at 22:37; Start 08/08/18 at 22:00; Stop 08/27/18 at 23:00; Status DC Levetiracetam (Keppra) 500 mg BID PO Last administered on 11/02/18 19:21; Start 08/08/18 at 22:00 Atorvastatin Calcium (Lipitor) 20 mg QHS PO Last administered on 11/02/18 19:21 ; Start 08/09/18 at 21:00 Insulin Human Lispro (HumaLOG) 0-5 UNITS TIDWMEALS SQ Last administered on 09/05at 09:13; Start 08/09/18 at 08:00; Stop 09/05/18 at 14:16; Status DC Dextrose 12.5 gm PRN Q15MIN PRN IV SEE COMMENTS; Start 08/09/18 at 05:45; Stop 09/05/18 at 14:16; Status DC Duloxetine HCl (Cymbalta) 30 mg DAILY PO Last administered on 08/12/18at 08:06 ; Start 08/11/18 at 09:00; Stop 08/12/18 at 09:02; Status DC Duloxetine HCl (Cymbalta) 60 mg DAILY PO Last administered on 09/28/18at 08:28 ; Start 08/13/18 at 09:00; Stop 09/28/18 at 19:49; Status DC Cephalexin HCl (Keflex) 500 mg TID PO Last administered on 08/20/18at 19:28; Start 08/11/18 at 09:00; Stop 08/21/18 at 08:59; Status DC Lactobacillus Rhamnosus (Culturelle) 1 cap BID PO Last administered on at 19:21; Start 08/11/18 at 09:00 Levothyroxine Sodium (Synthroid) 100 mcg 1X ONCE PO Last administered on 08/15at 06:23; Start 08/15/18 at 06:30; Stop 08/15/18 at 06:31; Status DC Olanzapine (ZyPREXA ZYDIS) 10 mg PRN BID PRN PO AGITATION; Start 08/24/18 at 17:45; Stop 09/22/18 at 12:01; Status DC Olanzapine (ZyPREXA IM) 5 mg PRN BID PRN IM AGITATION Last administered on at 17:53; Start 08/24/18 at 17:45; Stop 09/22/18 at 12:01; Status DC Cefpodoxime Proxetil (Vantin) 200 mg BID PO Last administered on 08/27/18at 08: 28; Start 08/25/18 at 17:30; Stop 08/27/18 at 17:27; Status DC Gabapentin (Neurontin) 100 mg BID PO Last administered on 09/13/18at 09:05; Start 08/25/18 at 21:00; Stop 09/13/18 at 16:30; Status DC Quetiapine Fumarate (SEROquel) 12.5 mg DAILY16 PO Last administered on at 16:29; Start 08/27/18 at 16:00; Stop 09/16/18 at 16:52; Status DC Heparin Sodium (Porcine) (Heparin Sodium) 5,000 unit Q8HRS SQ Last administered on 09/25/18at 13:45; Start 08/28/18 at 06:00; Stop 09/25/18 at 18 :16; Status DC Ciprofloxacin (Cipro) 500 mg BID PO Last administered on 09/06/18at 08:09; Start 08/27/18 at 21:00; Stop 09/06/18 at 20:59; Status DC Insulin Human Lispro (HumaLOG) 0-9 UNITS TIDWMEALS SQ Last administered on 17:12; Start 09/05/18 at 17:00 Dextrose 12.5 gm PRN Q15MIN PRN IV SEE COMMENTS; Start 09/05/18 at 14:15 Gabapentin (Neurontin) 200 mg TID PO Last administered on 11/02/18 19:21; Start 09/13/18 at 21:00 Bupropion HCl (Wellbutrin Xl) 150 mg DAILY PO Last administered on 11/02/18 08: 10; Start 09/17/18 at 09:00 Insulin Glargine (Lantus) 15 units QHS SQ Last administered on 11/02/18 20:36; Start 09/19/18 at 21:00 Olanzapine (ZyPREXA ZYDIS) 2.5 mg PRN Q2HR PRN PO PSYCHOSIS Last administered on 10/21/18 14:33; Start 09/22/18 at 12:00 Quetiapine Fumarate (SEROquel) 50 mg HS PO Last administered on 09/27/18at 21: 28; Start 09/22/18 at 21:00; Stop 09/28/18 at 19:49; Status DC Enoxaparin Sodium (Lovenox 40mg Syringe) 40 mg Q24H SQ Last administered on 11/02 19:21; Start 09/25/18 at 21:00 Duloxetine HCl (Cymbalta) 60 mg HS PO Last administered on 11/02/18 19:21; Start 09/29/18 at 21:00 Quetiapine Fumarate (SEROquel) 25 mg HS PO Last administered on 09/29/18at 20: 59; Start 09/28/18 at 21:00; Stop 09/30/18 at 17:23; Status DC Aripiprazole (Abilify) 2.5 mg QHS PO Last administered on 10/28/18 20:34; Start 09/30/18 at 21:00; Stop 10/29/18 at 18:40; Status DC Guaifenesin (Robitussin Dm) 10 ml PRN Q6HRS PRN PO COUGH Last administered on 19:11; Start 10/02/18 at 15:00 Nitrofurantoin Macrocrystals (Macrobid) 100 mg QHS PO Last administered on 19:20; Start 10/03/18 at 21:00 Cetirizine HCl (ZyrTEC) 10 mg DAILY PO Last administered on 11/02/18 08:13; Start 10/12/18 at 09:00 Docusate Sodium (Colace) 100 mg BID PO Last administered on 11/02/18 19:21; Start 10/18/18 at 21:00 Polyethylene Glycol (miraLAX) 17 gm DAILY PO Last administered on 11/02/18 08: 06; Start 10/19/18 at 09:00 Nystatin (Mycostatin) 5 ml QID SWSW Last administered on 10/28/18at 17:46; Start 10/19/18 at 17:00; Stop 10/29/18 at 16:59; Status DC Nitroglycerin (Nitrostat) 0.4 mg PRN Q5MIN PRN SL CHEST PAIN Last administered on 10/25/18at 23:19; Start 10/25/18 at 23:15 Levothyroxine Sodium (Synthroid) 100 mcg 1X ONCE PO Last administered on 06:37; Start 11/01/18 at 07:00; Stop 11/01/18 at 07:01; Status DC Active Scripts Active Reported Seroquel (Quetiapine Fumarate) 25 Mg Tablet 12.5 Mg PO DAILY16 Olanzapine 10 Mg Tablet 10 Mg PO PRN BID PRN Olanzapine Inj (Olanzapine) 10 Mg Vial 5 Mg IM PRN BID PRN Analgesic [place] (Methyl Salicylate/Menthol) 28 Gm Oint...g. 1 Frank TP PRN QID PRN Milk Of Magnesia (Magnesium Hydroxide) 2,400 Mg/10 Ml Oral.susp 2,400 Mg PO PRN QHS PRN Advanced Antacid Liquid (Mag Hydrox/Al Hydrox/Simeth) 355 Ml Oral.susp 15 Ml PO PRN AFTMEALHC PRN Culturelle (Lactobacillus Rhamnosus Gg) 1 Each Cap.sprink 1 Cap PO BID Humalog (Insulin Lispro) 100 Unit/1 Ml Cartridge 0-5 Unit SQ TIDWMEALS Gabapentin 100 Mg Capsule 100 Mg PO BID Cymbalta (Duloxetine Hcl) 60 Mg Capsule.dr 60 Mg PO DAILY Ciprofloxacin Hcl 500 Mg Tablet 500 Mg PO BID Venlafaxine Hcl Er (Venlafaxine Hcl) 150 Mg Tab.er.24 150 Mg PO DAILYWBKFT Quetiapine Fumarate 25 Mg Tablet 25 Mg PO DAILY Seroquel (Quetiapine Fumarate) 25 Mg Tablet 75 Mg PO QHS Namenda (Memantine Hcl) 10 Mg Tablet 10 Mg PO BID Lovastatin 40 Mg Tablet 80 Mg PO QHS Levothyroxine Sodium 100 Mcg Tablet 100 Mcg PO DAILYAC Keppra (Levetiracetam) 500 Mg Tablet 500 Mg PO BID Heparin 5,000 Unit/5 ml-Ns (Heparin Sod,Porcine/0.9 % NaCl) 5,000 Unit/5 Ml Syringe 5,000 Unit IM Q8HRS Vitamin D2 (Ergocalciferol (Vitamin D2)) 50,000 Unit Capsule 50,000 Unit PO WEEKLY Benazepril Hcl 20 Mg Tablet 20 Mg PO DAILY Aspirin 81 Mg Tab.chew 81 Mg PO DAILY Amlodipine Besylate 5 Mg Tablet 5 Mg PO DAILY Tylenol (Acetaminophen) 325 Mg Tablet 650 Mg PO PRN Q4HRS PRN I have reviewed the current psychotropics carefully including drug interactions. Risk benefit ratio favors no change other than as noted in my dictated progress note. Diagnosis: Problems: (1) Anxiety disorder (2) Mild cognitive disorder (3) Major depressive disorder, recurrent episode (4) Impulse control disorder ANTONIA BAILEY MD Nov 02, 2018 22:30
[2018-11-03 06:11] VITALS: BP 140/78
[2018-11-03] MEDS: LEVOTHYROXINE 100 MCG TABLET PO SCH (06:11)
[2018-11-03] MEDS: INSULIN LISPRO 300 UNITS/3 ML INSULN.PEN. SQ SCH ×3 (07:45→17:07)
[2018-11-03] MEDS: LACTOBACILLUS RHAMNOSUS GG 1 CAPSULE. PO SCH ×2 (07:46→21:22)
[2018-11-03] MEDS: MEMANTINE 10 MG TABLET. PO SCH ×2 (07:46→21:22)
[2018-11-03] MEDS: POLYETHYLENE GLYCOL 3350 17 GM PACKET. PO SCH (07:46)
[2018-11-03] MEDS: GABAPENTIN 100 MG CAPSULE. PO SCH ×3 (07:46→21:22)
[2018-11-03] MEDS: ASPIRIN 81 MG TAB.CHEW PO SCH (07:46)
[2018-11-03] MEDS: levETIRAcetam 500 MG TABLET PO SCH ×2 (07:46→21:22)
[2018-11-03] MEDS: DOCUSATE SODIUM 100 MG CAPSULE PO SCH ×2 (07:46→21:22)
[2018-11-03] MEDS: amLODIPine BESYLATE 5 MG TABLET PO SCH (07:47)
[2018-11-03] MEDS: buPROPion XL 150 MG TAB.ER.24H PO SCH (07:48)
[2018-11-03] MEDS: LISINOPRIL 20 MG TABLET PO SCH (07:48)
[2018-11-03] MEDS: CETIRIZINE HCL 10 MG TABLET PO SCH (07:48)
[2018-11-03 16:20] VITALS: BP 118/75
[2018-11-03] MEDS: NITROFURANTOIN MONOHYD/M-CRYST 100 MG CAPSULE. PO SCH (21:22)
[2018-11-03] MEDS: ATORVASTATIN CALCIUM 20 MG TABLET PO SCH (21:22)
[2018-11-03] MEDS: DULoxetine HCL 60 MG CAPSULE.DR PO SCH (21:22)
[2018-11-03] MEDS: ENOXAPARIN 40 MG/0.4 ML SYRINGE. SQ SCH (21:25)
[2018-11-03] MEDS: INSULIN GLARGINE 300 UNITS/3 ML INSULN.PEN. SQ SCH (21:25)
--- NOTE | 2018-11-03 22:31 | PDOC ---
Exam Note: José Miguel Note: Please also refer to the separate dictated note~for this date of service dictated separately.~Patient seen individually. Discussed the patient with Nursing staff reviewed the chart.~Reviewed interim history and current functioning. Reviewed vital signs,~Labs/ Radiology~and current medications noted below. Continue current treatment with the changes noted in the dictated addendum note Assessment: Vital Signs: Vital Signs Date Time Temp Pulse Resp B/P (MAP) Pulse Ox O2 Delivery O2 Flow Rate FiO2 11/03/18 16:20 98.2 72 18 118/75 (89) 100 Room Air I&O Intake and Output 11/03/18 07:01 Intake Total 1080 ml Balance 1080 ml Intake Oral 1080 ml Labs: Laboratory Tests Test 11/03/18 07:34 11/03/18 11:22 11/03/18 16:29 11/03/18 19:12 Glucose (Fingerstick) 176 mg/dL (70-99) H 319 mg/dL (70-99) H 173 mg/dL (70-99) H 168 mg/dL (70-99) H Current Medications: Meds: Current Medications Acetaminophen (Tylenol) 650 mg PRN Q6HRS PRN PO PAIN / TEMP Last administered on 10/31/18 06:23; Start 08/08/18 at 20:00 Multi-Ingredient Ointment (Analgesic [place]) 1 frank PRN QID PRN TP MUSCLE PAIN Last administered on 10/25/18 22:52; Start 08/08/18 at 20:00 Al Hydroxide/Mg Hydroxide (Mylanta Plus Xs) 15 ml PRN AFTMEALHC PRN PO DYSPEPSIA; Start 08/08/18 at 20:00 Magnesium Hydroxide (Milk Of Magnesia) 2,400 mg PRN QHS PRN PO CONSTIPATION Last administered on 10/22/18 21:16; Start 08/08/18 at 20:00 Memantine (Namenda) 10 mg BID PO Last administered on 11/03/18 21:22; Start at 22:00 Quetiapine Fumarate (SEROquel) 25 mg DAILY PO Last administered on 09/05/18at 08 :51; Start 08/09/18 at 09:00; Stop 09/05/18 at 11:58; Status DC Quetiapine Fumarate (SEROquel) 75 mg HS PO Last administered on 09/21/18at 20: 38; Start 08/08/18 at 22:00; Stop 09/22/18 at 18:49; Status DC Venlafaxine HCl (Effexor) 50 mg TID PO Last administered on 08/10/18at 13:40; Start 08/09/18 at 09:00; Stop 08/10/18 at 17:54; Status DC Acetaminophen (Tylenol) 650 mg PRN Q4HRS PRN PO PAIN / TEMP; Start 08/08/18 at 21:30; Status Cancel Levothyroxine Sodium (Synthroid) 100 mcg DAILY06 PO Last administered on 06:11; Start 08/09/18 at 06:00 Amlodipine Besylate (Norvasc) 5 mg DAILY PO Last administered on 11/03/18 07:47 ; Start 08/09/18 at 09:00 Aspirin (Children'S Aspirin) 81 mg DAILY PO Last administered on 11/03/18 07:46 ; Start 08/09/18 at 09:00 Lisinopril (Prinivil) 20 mg DAILY PO Last administered on 11/03/18 07:48; Start 08/09/18 at 09:00 Vitamin D (Vitamin D3) 50,000 unit WEEKLY PO Last administered on 10/31/18 08: 49; Start 08/15/18 at 09:00 Heparin Sodium (Porcine) (Heparin Sq) 5,000 unit Q8HRS SQ Last administered on 08/27/18at 22:37; Start 08/08/18 at 22:00; Stop 08/27/18 at 23:00; Status DC Levetiracetam (Keppra) 500 mg BID PO Last administered on 11/03/18 21:22; Start 08/08/18 at 22:00 Atorvastatin Calcium (Lipitor) 20 mg QHS PO Last administered on 11/03/18 21:22 ; Start 08/09/18 at 21:00 Insulin Human Lispro (HumaLOG) 0-5 UNITS TIDWMEALS SQ Last administered on 09/05 09:13; Start 08/09/18 at 08:00; Stop 09/05/18 at 14:16; Status DC Dextrose 12.5 gm PRN Q15MIN PRN IV SEE COMMENTS; Start 08/09/18 at 05:45; Stop 09/05/18 at 14:16; Status DC Duloxetine HCl (Cymbalta) 30 mg DAILY PO Last administered on 08/12/18at 08:06 ; Start 08/11/18 at 09:00; Stop 08/12/18 at 09:02; Status DC Duloxetine HCl (Cymbalta) 60 mg DAILY PO Last administered on 09/28/18at 08:28 ; Start 08/13/18 at 09:00; Stop 09/28/18 at 19:49; Status DC Cephalexin HCl (Keflex) 500 mg TID PO Last administered on 08/20/18at 19:28; Start 08/11/18 at 09:00; Stop 08/21/18 at 08:59; Status DC Lactobacillus Rhamnosus (Culturelle) 1 cap BID PO Last administered on at 21:22; Start 08/11/18 at 09:00 Levothyroxine Sodium (Synthroid) 100 mcg 1X ONCE PO Last administered on 08/15at 06:23; Start 08/15/18 at 06:30; Stop 08/15/18 at 06:31; Status DC Olanzapine (ZyPREXA ZYDIS) 10 mg PRN BID PRN PO AGITATION; Start 08/24/18 at 17:45; Stop 09/22/18 at 12:01; Status DC Olanzapine (ZyPREXA IM) 5 mg PRN BID PRN IM AGITATION Last administered on at 17:53; Start 08/24/18 at 17:45; Stop 09/22/18 at 12:01; Status DC Cefpodoxime Proxetil (Vantin) 200 mg BID PO Last administered on 08/27/18at 08: 28; Start 08/25/18 at 17:30; Stop 08/27/18 at 17:27; Status DC Gabapentin (Neurontin) 100 mg BID PO Last administered on 09/13/18at 09:05; Start 08/25/18 at 21:00; Stop 09/13/18 at 16:30; Status DC Quetiapine Fumarate (SEROquel) 12.5 mg DAILY16 PO Last administered on at 16:29; Start 08/27/18 at 16:00; Stop 09/16/18 at 16:52; Status DC Heparin Sodium (Porcine) (Heparin Sodium) 5,000 unit Q8HRS SQ Last administered on 09/25/18at 13:45; Start 08/28/18 at 06:00; Stop 09/25/18 at 18 :16; Status DC Ciprofloxacin (Cipro) 500 mg BID PO Last administered on 09/06/18at 08:09; Start 08/27/18 at 21:00; Stop 09/06/18 at 20:59; Status DC Insulin Human Lispro (HumaLOG) 0-9 UNITS TIDWMEALS SQ Last administered on 17:07; Start 09/05/18 at 17:00 Dextrose 12.5 gm PRN Q15MIN PRN IV SEE COMMENTS; Start 09/05/18 at 14:15 Gabapentin (Neurontin) 200 mg TID PO Last administered on 11/03/18 21:22; Start 09/13/18 at 21:00 Bupropion HCl (Wellbutrin Xl) 150 mg DAILY PO Last administered on 11/03/18 07: 48; Start 09/17/18 at 09:00 Insulin Glargine (Lantus) 15 units QHS SQ Last administered on 11/03/18 21:25; Start 09/19/18 at 21:00 Olanzapine (ZyPREXA ZYDIS) 2.5 mg PRN Q2HR PRN PO PSYCHOSIS Last administered on 10/21/18 14:33; Start 09/22/18 at 12:00 Quetiapine Fumarate (SEROquel) 50 mg HS PO Last administered on 09/27/18 21: 28; Start 09/22/18 at 21:00; Stop 09/28/18 at 19:49; Status DC Enoxaparin Sodium (Lovenox 40mg Syringe) 40 mg Q24H SQ Last administered on 11/03 21:25; Start 09/25/18 at 21:00 Duloxetine HCl (Cymbalta) 60 mg HS PO Last administered on 11/03/18 21:22; Start 09/29/18 at 21:00 Quetiapine Fumarate (SEROquel) 25 mg HS PO Last administered on 09/29/18at 20: 59; Start 09/28/18 at 21:00; Stop 09/30/18 at 17:23; Status DC Aripiprazole (Abilify) 2.5 mg QHS PO Last administered on 10/28/18at 20:34; Start 09/30/18 at 21:00; Stop 10/29/18 at 18:40; Status DC Guaifenesin (Robitussin Dm) 10 ml PRN Q6HRS PRN PO COUGH Last administered on 19:11; Start 10/02/18 at 15:00 Nitrofurantoin Macrocrystals (Macrobid) 100 mg QHS PO Last administered on 21:22; Start 10/03/18 at 21:00 Cetirizine HCl (ZyrTEC) 10 mg DAILY PO Last administered on 11/03/18 07:48; Start 10/12/18 at 09:00 Docusate Sodium (Colace) 100 mg BID PO Last administered on 11/03/18 21:22; Start 10/18/18 at 21:00 Polyethylene Glycol (miraLAX) 17 gm DAILY PO Last administered on 11/03/18 07: 46; Start 10/19/18 at 09:00 Nystatin (Mycostatin) 5 ml QID SWSW Last administered on 10/28/18at 17:46; Start 10/19/18 at 17:00; Stop 10/29/18 at 16:59; Status DC Nitroglycerin (Nitrostat) 0.4 mg PRN Q5MIN PRN SL CHEST PAIN Last administered on 10/25/18 23:19; Start 10/25/18 at 23:15 Levothyroxine Sodium (Synthroid) 100 mcg 1X ONCE PO Last administered on at 06:37; Start 11/01/18 at 07:00; Stop 11/01/18 at 07:01; Status DC Active Scripts Active Reported Seroquel (Quetiapine Fumarate) 25 Mg Tablet 12.5 Mg PO DAILY16 Olanzapine 10 Mg Tablet 10 Mg PO PRN BID PRN Olanzapine Inj (Olanzapine) 10 Mg Vial 5 Mg IM PRN BID PRN Analgesic [place] (Methyl Salicylate/Menthol) 28 Gm Oint...g. 1 Frank TP PRN QID PRN Milk Of Magnesia (Magnesium Hydroxide) 2,400 Mg/10 Ml Oral.susp 2,400 Mg PO PRN QHS PRN Advanced Antacid Liquid (Mag Hydrox/Al Hydrox/Simeth) 355 Ml Oral.susp 15 Ml PO PRN AFTMEALHC PRN Culturelle (Lactobacillus Rhamnosus Gg) 1 Each Cap.sprink 1 Cap PO BID Humalog (Insulin Lispro) 100 Unit/1 Ml Cartridge 0-5 Unit SQ TIDWMEALS Gabapentin 100 Mg Capsule 100 Mg PO BID Cymbalta (Duloxetine Hcl) 60 Mg Capsule.dr 60 Mg PO DAILY Ciprofloxacin Hcl 500 Mg Tablet 500 Mg PO BID Venlafaxine Hcl Er (Venlafaxine Hcl) 150 Mg Tab.er.24 150 Mg PO DAILYWBKFT Quetiapine Fumarate 25 Mg Tablet 25 Mg PO DAILY Seroquel (Quetiapine Fumarate) 25 Mg Tablet 75 Mg PO QHS Namenda (Memantine Hcl) 10 Mg Tablet 10 Mg PO BID Lovastatin 40 Mg Tablet 80 Mg PO QHS Levothyroxine Sodium 100 Mcg Tablet 100 Mcg PO DAILYAC Keppra (Levetiracetam) 500 Mg Tablet 500 Mg PO BID Heparin 5,000 Unit/5 ml-Ns (Heparin Sod,Porcine/0.9 % NaCl) 5,000 Unit/5 Ml Syringe 5,000 Unit IM Q8HRS Vitamin D2 (Ergocalciferol (Vitamin D2)) 50,000 Unit Capsule 50,000 Unit PO WEEKLY Benazepril Hcl 20 Mg Tablet 20 Mg PO DAILY Aspirin 81 Mg Tab.chew 81 Mg PO DAILY Amlodipine Besylate 5 Mg Tablet 5 Mg PO DAILY Tylenol (Acetaminophen) 325 Mg Tablet 650 Mg PO PRN Q4HRS PRN I have reviewed the current psychotropics carefully including drug interactions. Risk benefit ratio favors no change other than as noted in my dictated progress note. Diagnosis: Problems: (1) Anxiety disorder (2) Mild cognitive disorder (3) Major depressive disorder, recurrent episode (4) Impulse control disorder ANTONIA BAILEY MD Nov 03, 2018 22:31
--- NOTE | 2018-11-03 23:31 | PN ---
DATE: 11/01/2018 PSYCHIATRIC PROGRESS NOTE This late entry of 11/01/2018 covers elements not covered in my initial note. SUBJECTIVE: I met with the patient in the evening. The patient slept 7-1/2 hours previous night. She has been joking, more awake during the day. REVIEW OF SYSTEMS: Ambulation impaired, in wheelchair. No CV, , pulmonary, eye, ENT system symptoms on review. MENTAL STATUS EXAM: Oriented to herself and situation. Speech has some latency, coherent. Abstraction fair, computation impaired, language function intact, attention span short. Mood and affect still withdrawn, but much less so than before. LABORATORY DATA: Reviewed. IMPRESSION: Unchanged from initial note. PLAN: No change from initial note. MAN Han BAILEY MD DR: RAYMON/christen JOB#: [id number] / [id number]
[2018-11-04] MEDS ORDERED: ATOR20TA58 PO (01:39)
[2018-11-04] MEDS ORDERED: CETI10TA16 PO (01:41)
[2018-11-04] MEDS ORDERED: DOCU-109 PO (01:42)
[2018-11-04] MEDS ORDERED: ENOX40DI SQ (01:43)
[2018-11-04] MEDS ORDERED: INSU100I13 SQ (01:44)
[2018-11-04] MEDS ORDERED: INSU100V SQ (01:45)
[2018-11-04] MEDS ORDERED: LISI-334 PO (01:56)
[2018-11-04] MEDS ORDERED: NITR100C62 PO (01:57)
[2018-11-04] MEDS ORDERED: NITR0.4T22 SL (01:58)
[2018-11-04] MEDS ORDERED: OLAN5TAB5 PO (01:59)
[2018-11-04] MEDS ORDERED: POLY2500 PO (02:01)
[2018-11-04] MEDS ORDERED: BUPR-192 PO (02:01)
[2018-11-04] MEDS ORDERED: GUAI237L83 PO (02:03)
[2018-11-04] MEDS: LEVOTHYROXINE 100 MCG TABLET PO SCH (05:53)
[2018-11-04 06:17] VITALS: BP 147/80
[2018-11-04] MEDS: INSULIN LISPRO 300 UNITS/3 ML INSULN.PEN. SQ SCH (08:45)
[2018-11-04] MEDS: LACTOBACILLUS RHAMNOSUS GG 1 CAPSULE. PO SCH (08:46)
[2018-11-04] MEDS: GABAPENTIN 100 MG CAPSULE. PO SCH (08:46)
[2018-11-04] MEDS: DOCUSATE SODIUM 100 MG CAPSULE PO SCH (08:46)
[2018-11-04] MEDS: levETIRAcetam 500 MG TABLET PO SCH (08:46)
[2018-11-04] MEDS: MEMANTINE 10 MG TABLET. PO SCH (08:46)
[2018-11-04] MEDS: POLYETHYLENE GLYCOL 3350 17 GM PACKET. PO SCH (08:46)
[2018-11-04] MEDS: ASPIRIN 81 MG TAB.CHEW PO SCH (08:46)
[2018-11-04] MEDS: amLODIPine BESYLATE 5 MG TABLET PO SCH (08:47)
[2018-11-04 08:48] VITALS: BP 147/80
[2018-11-04] MEDS: CETIRIZINE HCL 10 MG TABLET PO SCH (08:48)
[2018-11-04] MEDS: buPROPion XL 150 MG TAB.ER.24H PO SCH (08:48)
[2018-11-04] MEDS: LISINOPRIL 20 MG TABLET PO SCH (08:48)
--- NOTE | 2018-11-04 18:39 | PDOC ---
Exam Note: José Miguel Note: Please also refer to the separate dictated note~for this date of service dictated separately.~Patient seen individually. Discussed the patient with Nursing staff reviewed the chart.~Reviewed interim history and current functioning. Reviewed vital signs,~Labs/ Radiology~and current medications noted below. Continue current treatment with the changes noted in the dictated addendum note Assessment: Vital Signs: Vital Signs Date Time Temp Pulse Resp B/P (MAP) Pulse Ox O2 Delivery O2 Flow Rate FiO2 11/04/18 08:48 68 147/80 11/04/18 06:17 97.6 16 98 11/03/18 16:20 Room Air I&O Intake and Output 11/04/18 07:01 Intake Total 1320 ml Balance 1320 ml Intake Oral 1320 ml # Bowel Movements 2 Labs: Laboratory Tests Test 11/03/18 19:12 11/04/18 07:14 Glucose (Fingerstick) 168 mg/dL (70-99) H 126 mg/dL (70-99) H Current Medications: Meds: Current Medications Acetaminophen (Tylenol) 650 mg PRN Q6HRS PRN PO PAIN / TEMP Last administered on 10/31/18 06:23; Start 08/08/18 at 20:00; Stop 11/04/18 at 11:30; Status DC Multi-Ingredient Ointment (Analgesic [place]) 1 frank PRN QID PRN TP MUSCLE PAIN Last administered on 10/25/18at 22:52; Start 08/08/18 at 20:00; Stop 11/04/18 at 11:30; Status DC Al Hydroxide/Mg Hydroxide (Mylanta Plus Xs) 15 ml PRN AFTMEALHC PRN PO DYSPEPSIA; Start 08/08/18 at 20:00; Stop 11/04/18 at 11:30; Status DC Magnesium Hydroxide (Milk Of Magnesia) 2,400 mg PRN QHS PRN PO CONSTIPATION Last administered on 10/22/18at 21:16; Start 08/08/18 at 20:00; Stop 11/04/18 at 11:30; Status DC Memantine (Namenda) 10 mg BID PO Last administered on 11/04/18at 08:46; Start at 22:00; Stop 11/04/18 at 11:30; Status DC Quetiapine Fumarate (SEROquel) 25 mg DAILY PO Last administered on 09/05/18at 08 :51; Start 08/09/18 at 09:00; Stop 09/05/18 at 11:58; Status DC Quetiapine Fumarate (SEROquel) 75 mg HS PO Last administered on 09/21/18at 20: 38; Start 08/08/18 at 22:00; Stop 09/22/18 at 18:49; Status DC Venlafaxine HCl (Effexor) 50 mg TID PO Last administered on 08/10/18at 13:40; Start 08/09/18 at 09:00; Stop 08/10/18 at 17:54; Status DC Acetaminophen (Tylenol) 650 mg PRN Q4HRS PRN PO PAIN / TEMP; Start 08/08/18 at 21:30; Status Cancel Levothyroxine Sodium (Synthroid) 100 mcg DAILY06 PO Last administered on 05:53; Start 08/09/18 at 06:00; Stop 11/04/18 at 11:30; Status DC Amlodipine Besylate (Norvasc) 5 mg DAILY PO Last administered on 11/04/18 08:47 ; Start 08/09/18 at 09:00; Stop 11/04/18 at 11:30; Status DC Aspirin (Children'S Aspirin) 81 mg DAILY PO Last administered on 11/04/18 08:46 ; Start 08/09/18 at 09:00; Stop 11/04/18 at 11:30; Status DC Lisinopril (Prinivil) 20 mg DAILY PO Last administered on 11/04/18 08:48; Start 08/09/18 at 09:00; Stop 11/04/18 at 11:30; Status DC Vitamin D (Vitamin D3) 50,000 unit WEEKLY PO Last administered on 10/31/18at 08: 49; Start 08/15/18 at 09:00; Stop 11/04/18 at 11:30; Status DC Heparin Sodium (Porcine) (Heparin Sq) 5,000 unit Q8HRS SQ Last administered on 08/27/18at 22:37; Start 08/08/18 at 22:00; Stop 08/27/18 at 23:00; Status DC Levetiracetam (Keppra) 500 mg BID PO Last administered on 11/04/18 08:46; Start 08/08/18 at 22:00; Stop 11/04/18 at 11:30; Status DC Atorvastatin Calcium (Lipitor) 20 mg QHS PO Last administered on 11/03/18at 21:22 ; Start 08/09/18 at 21:00; Stop 11/04/18 at 11:30; Status DC Insulin Human Lispro (HumaLOG) 0-5 UNITS TIDWMEALS SQ Last administered on 09/05at 09:13; Start 08/09/18 at 08:00; Stop 09/05/18 at 14:16; Status DC Dextrose 12.5 gm PRN Q15MIN PRN IV SEE COMMENTS; Start 08/09/18 at 05:45; Stop 09/05/18 at 14:16; Status DC Duloxetine HCl (Cymbalta) 30 mg DAILY PO Last administered on 08/12/18at 08:06 ; Start 08/11/18 at 09:00; Stop 08/12/18 at 09:02; Status DC Duloxetine HCl (Cymbalta) 60 mg DAILY PO Last administered on 09/28/18at 08:28 ; Start 08/13/18 at 09:00; Stop 09/28/18 at 19:49; Status DC Cephalexin HCl (Keflex) 500 mg TID PO Last administered on 08/20/18at 19:28; Start 08/11/18 at 09:00; Stop 08/21/18 at 08:59; Status DC Lactobacillus Rhamnosus (Culturelle) 1 cap BID PO Last administered on at 08:46; Start 08/11/18 at 09:00; Stop 11/04/18 at 11:30; Status DC Levothyroxine Sodium (Synthroid) 100 mcg 1X ONCE PO Last administered on 08/15at 06:23; Start 08/15/18 at 06:30; Stop 08/15/18 at 06:31; Status DC Olanzapine (ZyPREXA ZYDIS) 10 mg PRN BID PRN PO AGITATION; Start 08/24/18 at 17:45; Stop 09/22/18 at 12:01; Status DC Olanzapine (ZyPREXA IM) 5 mg PRN BID PRN IM AGITATION Last administered on at 17:53; Start 08/24/18 at 17:45; Stop 09/22/18 at 12:01; Status DC Cefpodoxime Proxetil (Vantin) 200 mg BID PO Last administered on 08/27/18at 08: 28; Start 08/25/18 at 17:30; Stop 08/27/18 at 17:27; Status DC Gabapentin (Neurontin) 100 mg BID PO Last administered on 09/13/18at 09:05; Start 08/25/18 at 21:00; Stop 09/13/18 at 16:30; Status DC Quetiapine Fumarate (SEROquel) 12.5 mg DAILY16 PO Last administered on at 16:29; Start 08/27/18 at 16:00; Stop 09/16/18 at 16:52; Status DC Heparin Sodium (Porcine) (Heparin Sodium) 5,000 unit Q8HRS SQ Last administered on 09/25/18at 13:45; Start 08/28/18 at 06:00; Stop 09/25/18 at 18 :16; Status DC Ciprofloxacin (Cipro) 500 mg BID PO Last administered on 09/06/18at 08:09; Start 08/27/18 at 21:00; Stop 09/06/18 at 20:59; Status DC Insulin Human Lispro (HumaLOG) 0-9 UNITS TIDWMEALS SQ Last administered on 17:07; Start 09/05/18 at 17:00; Stop 11/04/18 at 11:30; Status DC Dextrose 12.5 gm PRN Q15MIN PRN IV SEE COMMENTS; Start 09/05/18 at 14:15; Stop 11/04/18 at 11:30; Status DC Gabapentin (Neurontin) 200 mg TID PO Last administered on 11/04/18 08:46; Start 09/13/18 at 21:00; Stop 11/04/18 at 11:30; Status DC Bupropion HCl (Wellbutrin Xl) 150 mg DAILY PO Last administered on 11/04/18 08: 48; Start 09/17/18 at 09:00; Stop 11/04/18 at 11:30; Status DC Insulin Glargine (Lantus) 15 units QHS SQ Last administered on 2/3/19at 21:25; Start 09/19/18 at 21:00; Stop 11/04/18 at 11:31; Status DC Olanzapine (ZyPREXA ZYDIS) 2.5 mg PRN Q2HR PRN PO PSYCHOSIS Last administered on 10/21/18at 14:33; Start 09/22/18 at 12:00; Stop 11/04/18 at 11:31; Status DC Quetiapine Fumarate (SEROquel) 50 mg HS PO Last administered on 09/27/18at 21: 28; Start 09/22/18 at 21:00; Stop 09/28/18 at 19:49; Status DC Enoxaparin Sodium (Lovenox 40mg Syringe) 40 mg Q24H SQ Last administered on 11/03 21:25; Start 09/25/18 at 21:00; Stop 11/04/18 at 11:31; Status DC Duloxetine HCl (Cymbalta) 60 mg HS PO Last administered on 11/03/18 21:22; Start 09/29/18 at 21:00; Stop 11/04/18 at 11:31; Status DC Quetiapine Fumarate (SEROquel) 25 mg HS PO Last administered on 09/29/18at 20: 59; Start 09/28/18 at 21:00; Stop 09/30/18 at 17:23; Status DC Aripiprazole (Abilify) 2.5 mg QHS PO Last administered on 10/28/18at 20:34; Start 09/30/18 at 21:00; Stop 10/29/18 at 18:40; Status DC Guaifenesin (Robitussin Dm) 10 ml PRN Q6HRS PRN PO COUGH Last administered on 19:11; Start 10/02/18 at 15:00; Stop 11/04/18 at 11:31; Status DC Nitrofurantoin Macrocrystals (Macrobid) 100 mg QHS PO Last administered on 21:22; Start 10/03/18 at 21:00; Stop 11/04/18 at 11:31; Status DC Cetirizine HCl (ZyrTEC) 10 mg DAILY PO Last administered on 11/04/18 08:48; Start 10/12/18 at 09:00; Stop 11/04/18 at 11:31; Status DC Docusate Sodium (Colace) 100 mg BID PO Last administered on 11/04/18at 08:46; Start 10/18/18 at 21:00; Stop 11/04/18 at 11:31; Status DC Polyethylene Glycol (miraLAX) 17 gm DAILY PO Last administered on 11/04/18at 08: 46; Start 10/19/18 at 09:00; Stop 11/04/18 at 11:31; Status DC Nystatin (Mycostatin) 5 ml QID SWSW Last administered on 10/28/18at 17:46; Start 10/19/18 at 17:00; Stop 10/29/18 at 16:59; Status DC Nitroglycerin (Nitrostat) 0.4 mg PRN Q5MIN PRN SL CHEST PAIN Last administered on 10/25/18at 23:19; Start 10/25/18 at 23:15; Stop 11/04/18 at 11:31; Status DC Levothyroxine Sodium (Synthroid) 100 mcg 1X ONCE PO Last administered on at 06:37; Start 11/01/18 at 07:00; Stop 11/01/18 at 07:01; Status DC Active Scripts Active Reported Robitussin Cough-Chest Dm Liq (Guaifenesin/Dextromethorphan) 237 Ml Liquid 10 Ml PO PRN Q6HRS PRN Bupropion Xl (Bupropion Hcl) 150 Mg Tab.er.24h 150 Mg PO DAILY Polyethylene Glycol 3350 2,500 Gm Powder 17 Gm PO DAILY Zyprexa Zydis (Olanzapine) 5 Mg Tab.rapdis 2.5 Mg PO PRN Q2HR PRN NITROGLYCERIN SubLingual (Nitroglycerin) 0.4 Mg Tab.subl 0.4 Mg SL PRN Q5MIN PRN Macrobid 100 Mg Capsule (Nitrofurantoin Monohyd/M-Cryst) 100 Mg Capsule 100 Mg PO QHS Lisinopril 20 Mg Tablet 20 Mg PO DAILY Humalog (Insulin Lispro) 100 Unit/1 Ml Vial 0-9 Unit SQ TIDWMEALS Lantus Solostar (Insulin Glargine,Hum.rec.anlog) 100 Unit/1 Ml Insuln.pen 15 Unit SQ QHS Lovenox (Enoxaparin Sodium) 40 Mg/0.4 Ml Disp.syrin 40 Mg SQ QHS Colace (Docusate Sodium) 100 Mg Capsule 100 Mg PO BID Cetirizine Hcl 10 Mg Tablet 10 Mg PO DAILY Atorvastatin Calcium 20 Mg Tablet 20 Mg PO QHS Analgesic [place] (Methyl Salicylate/Menthol) 28 Gm Oint...g. 1 Frank TP PRN QID PRN Milk Of Magnesia (Magnesium Hydroxide) 2,400 Mg/10 Ml Oral.susp 2,400 Mg PO PRN QHS PRN Advanced Antacid Liquid (Mag Hydrox/Al Hydrox/Simeth) 355 Ml Oral.susp 15 Ml PO PRN AFTMEALHC PRN Culturelle (Lactobacillus Rhamnosus Gg) 1 Each Cap.sprink 1 Cap PO BID Gabapentin (Gabapentin) 100 Mg Capsule 200 Mg PO TID Cymbalta (Duloxetine Hcl) 60 Mg Capsule.dr 60 Mg PO DAILY Namenda (Memantine Hcl) 10 Mg Tablet 10 Mg PO BID Levothyroxine Sodium 100 Mcg Tablet 100 Mcg PO DAILY06 Keppra (Levetiracetam) 500 Mg Tablet 500 Mg PO BID Vitamin D2 (Ergocalciferol (Vitamin D2)) 50,000 Unit Capsule 50,000 Unit PO WEEKLY Aspirin 81 Mg Tab.chew 81 Mg PO DAILY Amlodipine Besylate 5 Mg Tablet 5 Mg PO DAILY Tylenol (Acetaminophen) 325 Mg Tablet 650 Mg PO PRN Q6HRS PRN I have reviewed the current psychotropics carefully including drug interactions. Risk benefit ratio favors no change other than as noted in my dictated progress note. Diagnosis: Problems: (1) Impulse control disorder (2) Major depressive disorder, recurrent episode (3) Mild cognitive disorder (4) Anxiety disorder (5) Major depressive disorder with psychotic features ANTONIA BAILEY MD Nov 04, 2018 18:39
--- NOTE | 2018-11-04 18:46 | DS ---
DATE OF DISCHARGE: 11/04/2018 DISCHARGE SUMMARY/PSYCHIATRIC PROGRESS NOTE This note covers elements not covered in my initial note of 11/04/2018. REASON FOR ADMISSION: Please refer to the admission history for details. Briefly, the patient is a 73-year-old female referred to us from [facility] on account of active hallucinations, crying, agitation, aggression towards family and voicing suicidal ideation. She was living at home with her son and [id number]. Behaviors were unmanageable, potential danger to herself and others around, came to the ER and then referred to us for inpatient psychiatric stabilization. SIGNIFICANT FINDINGS AND CLINICAL COURSE: Following admission, the patient was seen daily individually by myself from a psychiatric standpoint, medical followup with Dr. Anguiano. She was initially extremely depressed, withdrawn with suicidal ideation appeared psychotic. Adjustments were made in her psychotropics. Abilify was added as an atypical antipsychotic, but ultimately discontinued due to daytime sedation and as her depression improved with the antidepressants by themselves. The family was unable to have back and that is what led to a very prolonged hospitalization while the social service staff completed all the formalities and arrangements for [facility] placement and payor source for this. She was finally stabilized on a combination of Wellbutrin-XL 150 mg a day, Namenda 10 mg b.i.d., remained on Keppra 500 b.i.d. for seizure disorder, Cymbalta 60 mg at bedtime, Zyprexa 2.5 mg q.2 hours p.r.n. psychosis, agitation. REVIEW OF SYSTEMS: Prior to discharge on 11/04/2018, ambulation impaired, in wheelchair. No CV, , pulmonary, eye, ENT system symptoms on review. She was much more awake, alert. MENTAL STATUS EXAM: Oriented to herself and situation. Speech has some latency, low in volume, coherent, abstraction fair, computation impaired, language function intact. Mood and affect is improved. No suicidal ideation. CONDITION AT DISCHARGE: Improved. FINAL DIAGNOSES: Major depressive disorder, recurrent with psychotic features; anxiety disorder, unspecified; impulse control disorder, unspecified; cognitive disorder, unspecified. Rest unchanged from admission. DISCHARGE MEDICATIONS: Please refer to the MRAD. DISCHARGE INSTRUCTIONS: Outpatient psychiatric and medical followup with the [facility]. Time for discharge day management greater than 30 minutes. MAN Han BAILEY MD DR: Melia JOB#: [id number] / [id number]
--- NOTE | 2018-11-04 22:06 | PN ---
DATE: 11/02/2018 This late entry for 11/02/2018 covers elements not covered in my initial note. SUBJECTIVE: I met with the patient in the evening. The patient slept 6-3/4 hours previous evening. She has been more awake, alert, interactive. Denies being depressed. REVIEW OF SYSTEMS: Ambulation impaired in wheelchair. No CV, , pulmonary, eye system symptoms on review. MENTAL STATUS EXAM: Oriented to herself and situation. Speech has some latency, coherent. Abstraction fair, computation impaired, language function intact. Mood and affect is improved. LABORATORY DATA: Reviewed. IMPRESSION: Unchanged from initial note. PLAN: No change from initial note. MAN Han BAILEY MD DR: RAYMON/christen JOB#: [id number] / [id number]
--- NOTE | 2018-11-04 22:23 | PDOC ---
Exam Note: José Miguel Note: Please also refer to the separate dictated note~for this date of service dictated separately.~Patient seen individually. Discussed the patient with Nursing staff reviewed the chart.~Reviewed interim history and current functioning. Reviewed vital signs,~Labs/ Radiology~and current medications noted below. Continue current treatment with the changes noted in the dictated addendum note Assessment: Vital Signs: Vital Signs Date Time Temp Pulse Resp B/P (MAP) Pulse Ox O2 Delivery O2 Flow Rate FiO2 11/04/18 08:48 68 147/80 11/04/18 06:17 97.6 16 98 11/03/18 16:20 Room Air I&O Intake and Output 11/04/18 07:01 Intake Total 1320 ml Balance 1320 ml Intake Oral 1320 ml # Bowel Movements 2 Labs: Laboratory Tests Test 11/04/18 07:14 Glucose (Fingerstick) 126 mg/dL (70-99) H Current Medications: Meds: Current Medications Acetaminophen (Tylenol) 650 mg PRN Q6HRS PRN PO PAIN / TEMP Last administered on 10/31/18 06:23; Start 08/08/18 at 20:00; Stop 11/04/18 at 11:30; Status DC Multi-Ingredient Ointment (Analgesic [place]) 1 frank PRN QID PRN TP MUSCLE PAIN Last administered on 10/25/18at 22:52; Start 08/08/18 at 20:00; Stop 11/04/18 at 11:30; Status DC Al Hydroxide/Mg Hydroxide (Mylanta Plus Xs) 15 ml PRN AFTMEALHC PRN PO DYSPEPSIA; Start 08/08/18 at 20:00; Stop 11/04/18 at 11:30; Status DC Magnesium Hydroxide (Milk Of Magnesia) 2,400 mg PRN QHS PRN PO CONSTIPATION Last administered on 10/22/18 21:16; Start 08/08/18 at 20:00; Stop 11/04/18 at 11:30; Status DC Memantine (Namenda) 10 mg BID PO Last administered on 11/04/18at 08:46; Start at 22:00; Stop 11/04/18 at 11:30; Status DC Quetiapine Fumarate (SEROquel) 25 mg DAILY PO Last administered on 09/05/18at 08 :51; Start 08/09/18 at 09:00; Stop 09/05/18 at 11:58; Status DC Quetiapine Fumarate (SEROquel) 75 mg HS PO Last administered on 09/21/18at 20: 38; Start 08/08/18 at 22:00; Stop 09/22/18 at 18:49; Status DC Venlafaxine HCl (Effexor) 50 mg TID PO Last administered on 08/10/18at 13:40; Start 08/09/18 at 09:00; Stop 08/10/18 at 17:54; Status DC Acetaminophen (Tylenol) 650 mg PRN Q4HRS PRN PO PAIN / TEMP; Start 08/08/18 at 21:30; Status Cancel Levothyroxine Sodium (Synthroid) 100 mcg DAILY06 PO Last administered on 05:53; Start 08/09/18 at 06:00; Stop 11/04/18 at 11:30; Status DC Amlodipine Besylate (Norvasc) 5 mg DAILY PO Last administered on 11/04/18 08:47 ; Start 08/09/18 at 09:00; Stop 11/04/18 at 11:30; Status DC Aspirin (Children'S Aspirin) 81 mg DAILY PO Last administered on 11/04/18 08:46 ; Start 08/09/18 at 09:00; Stop 11/04/18 at 11:30; Status DC Lisinopril (Prinivil) 20 mg DAILY PO Last administered on 11/04/18 08:48; Start 08/09/18 at 09:00; Stop 11/04/18 at 11:30; Status DC Vitamin D (Vitamin D3) 50,000 unit WEEKLY PO Last administered on 10/31/18 08: 49; Start 08/15/18 at 09:00; Stop 11/04/18 at 11:30; Status DC Heparin Sodium (Porcine) (Heparin Sq) 5,000 unit Q8HRS SQ Last administered on 08/27/18at 22:37; Start 08/08/18 at 22:00; Stop 08/27/18 at 23:00; Status DC Levetiracetam (Keppra) 500 mg BID PO Last administered on 11/04/18 08:46; Start 08/08/18 at 22:00; Stop 11/04/18 at 11:30; Status DC Atorvastatin Calcium (Lipitor) 20 mg QHS PO Last administered on 11/03/18at 21:22 ; Start 08/09/18 at 21:00; Stop 11/04/18 at 11:30; Status DC Insulin Human Lispro (HumaLOG) 0-5 UNITS TIDWMEALS SQ Last administered on 09/05at 09:13; Start 08/09/18 at 08:00; Stop 09/05/18 at 14:16; Status DC Dextrose 12.5 gm PRN Q15MIN PRN IV SEE COMMENTS; Start 08/09/18 at 05:45; Stop 09/05/18 at 14:16; Status DC Duloxetine HCl (Cymbalta) 30 mg DAILY PO Last administered on 08/12/18at 08:06 ; Start 08/11/18 at 09:00; Stop 08/12/18 at 09:02; Status DC Duloxetine HCl (Cymbalta) 60 mg DAILY PO Last administered on 09/28/18at 08:28 ; Start 08/13/18 at 09:00; Stop 09/28/18 at 19:49; Status DC Cephalexin HCl (Keflex) 500 mg TID PO Last administered on 08/20/18at 19:28; Start 08/11/18 at 09:00; Stop 08/21/18 at 08:59; Status DC Lactobacillus Rhamnosus (Culturelle) 1 cap BID PO Last administered on at 08:46; Start 08/11/18 at 09:00; Stop 11/04/18 at 11:30; Status DC Levothyroxine Sodium (Synthroid) 100 mcg 1X ONCE PO Last administered on 08/15at 06:23; Start 08/15/18 at 06:30; Stop 08/15/18 at 06:31; Status DC Olanzapine (ZyPREXA ZYDIS) 10 mg PRN BID PRN PO AGITATION; Start 08/24/18 at 17:45; Stop 09/22/18 at 12:01; Status DC Olanzapine (ZyPREXA IM) 5 mg PRN BID PRN IM AGITATION Last administered on at 17:53; Start 08/24/18 at 17:45; Stop 09/22/18 at 12:01; Status DC Cefpodoxime Proxetil (Vantin) 200 mg BID PO Last administered on 08/27/18at 08: 28; Start 08/25/18 at 17:30; Stop 08/27/18 at 17:27; Status DC Gabapentin (Neurontin) 100 mg BID PO Last administered on 09/13/18at 09:05; Start 08/25/18 at 21:00; Stop 09/13/18 at 16:30; Status DC Quetiapine Fumarate (SEROquel) 12.5 mg DAILY16 PO Last administered on at 16:29; Start 08/27/18 at 16:00; Stop 09/16/18 at 16:52; Status DC Heparin Sodium (Porcine) (Heparin Sodium) 5,000 unit Q8HRS SQ Last administered on 09/25/18at 13:45; Start 08/28/18 at 06:00; Stop 09/25/18 at 18 :16; Status DC Ciprofloxacin (Cipro) 500 mg BID PO Last administered on 09/06/18at 08:09; Start 08/27/18 at 21:00; Stop 09/06/18 at 20:59; Status DC Insulin Human Lispro (HumaLOG) 0-9 UNITS TIDWMEALS SQ Last administered on 17:07; Start 09/05/18 at 17:00; Stop 11/04/18 at 11:30; Status DC Dextrose 12.5 gm PRN Q15MIN PRN IV SEE COMMENTS; Start 09/05/18 at 14:15; Stop 11/04/18 at 11:30; Status DC Gabapentin (Neurontin) 200 mg TID PO Last administered on 11/04/18 08:46; Start 09/13/18 at 21:00; Stop 11/04/18 at 11:30; Status DC Bupropion HCl (Wellbutrin Xl) 150 mg DAILY PO Last administered on 11/04/18 08: 48; Start 09/17/18 at 09:00; Stop 11/04/18 at 11:30; Status DC Insulin Glargine (Lantus) 15 units QHS SQ Last administered on 11/03/18 21:25; Start 09/19/18 at 21:00; Stop 11/04/18 at 11:31; Status DC Olanzapine (ZyPREXA ZYDIS) 2.5 mg PRN Q2HR PRN PO PSYCHOSIS Last administered on 10/21/18 14:33; Start 09/22/18 at 12:00; Stop 11/04/18 at 11:31; Status DC Quetiapine Fumarate (SEROquel) 50 mg HS PO Last administered on 09/27/18at 21: 28; Start 09/22/18 at 21:00; Stop 09/28/18 at 19:49; Status DC Enoxaparin Sodium (Lovenox 40mg Syringe) 40 mg Q24H SQ Last administered on 11/03 21:25; Start 09/25/18 at 21:00; Stop 11/04/18 at 11:31; Status DC Duloxetine HCl (Cymbalta) 60 mg HS PO Last administered on 11/03/18 21:22; Start 09/29/18 at 21:00; Stop 11/04/18 at 11:31; Status DC Quetiapine Fumarate (SEROquel) 25 mg HS PO Last administered on 09/29/18at 20: 59; Start 09/28/18 at 21:00; Stop 09/30/18 at 17:23; Status DC Aripiprazole (Abilify) 2.5 mg QHS PO Last administered on 10/28/18 20:34; Start 09/30/18 at 21:00; Stop 10/29/18 at 18:40; Status DC Guaifenesin (Robitussin Dm) 10 ml PRN Q6HRS PRN PO COUGH Last administered on 19:11; Start 10/02/18 at 15:00; Stop 11/04/18 at 11:31; Status DC Nitrofurantoin Macrocrystals (Macrobid) 100 mg QHS PO Last administered on 21:22; Start 10/03/18 at 21:00; Stop 11/04/18 at 11:31; Status DC Cetirizine HCl (ZyrTEC) 10 mg DAILY PO Last administered on 11/04/18 08:48; Start 10/12/18 at 09:00; Stop 11/04/18 at 11:31; Status DC Docusate Sodium (Colace) 100 mg BID PO Last administered on 11/04/18 08:46; Start 10/18/18 at 21:00; Stop 11/04/18 at 11:31; Status DC Polyethylene Glycol (miraLAX) 17 gm DAILY PO Last administered on 11/04/18at 08: 46; Start 10/19/18 at 09:00; Stop 11/04/18 at 11:31; Status DC Nystatin (Mycostatin) 5 ml QID SWSW Last administered on 10/28/18at 17:46; Start 10/19/18 at 17:00; Stop 10/29/18 at 16:59; Status DC Nitroglycerin (Nitrostat) 0.4 mg PRN Q5MIN PRN SL CHEST PAIN Last administered on 10/25/18at 23:19; Start 10/25/18 at 23:15; Stop 11/04/18 at 11:31; Status DC Levothyroxine Sodium (Synthroid) 100 mcg 1X ONCE PO Last administered on at 06:37; Start 11/01/18 at 07:00; Stop 11/01/18 at 07:01; Status DC Active Scripts Active Reported Robitussin Cough-Chest Dm Liq (Guaifenesin/Dextromethorphan) 237 Ml Liquid 10 Ml PO PRN Q6HRS PRN Bupropion Xl (Bupropion Hcl) 150 Mg Tab.er.24h 150 Mg PO DAILY Polyethylene Glycol 3350 2,500 Gm Powder 17 Gm PO DAILY Zyprexa Zydis (Olanzapine) 5 Mg Tab.rapdis 2.5 Mg PO PRN Q2HR PRN NITROGLYCERIN SubLingual (Nitroglycerin) 0.4 Mg Tab.subl 0.4 Mg SL PRN Q5MIN PRN Macrobid 100 Mg Capsule (Nitrofurantoin Monohyd/M-Cryst) 100 Mg Capsule 100 Mg PO QHS Lisinopril 20 Mg Tablet 20 Mg PO DAILY Humalog (Insulin Lispro) 100 Unit/1 Ml Vial 0-9 Unit SQ TIDWMEALS Lantus Solostar (Insulin Glargine,Hum.rec.anlog) 100 Unit/1 Ml Insuln.pen 15 Unit SQ QHS Lovenox (Enoxaparin Sodium) 40 Mg/0.4 Ml Disp.syrin 40 Mg SQ QHS Colace (Docusate Sodium) 100 Mg Capsule 100 Mg PO BID Cetirizine Hcl 10 Mg Tablet 10 Mg PO DAILY Atorvastatin Calcium 20 Mg Tablet 20 Mg PO QHS Analgesic [place] (Methyl Salicylate/Menthol) 28 Gm Oint...g. 1 Frank TP PRN QID PRN Milk Of Magnesia (Magnesium Hydroxide) 2,400 Mg/10 Ml Oral.susp 2,400 Mg PO PRN QHS PRN Advanced Antacid Liquid (Mag Hydrox/Al Hydrox/Simeth) 355 Ml Oral.susp 15 Ml PO PRN AFTMEALHC PRN Culturelle (Lactobacillus Rhamnosus Gg) 1 Each Cap.sprink 1 Cap PO BID Gabapentin (Gabapentin) 100 Mg Capsule 200 Mg PO TID Cymbalta (Duloxetine Hcl) 60 Mg Capsule.dr 60 Mg PO DAILY Namenda (Memantine Hcl) 10 Mg Tablet 10 Mg PO BID Levothyroxine Sodium 100 Mcg Tablet 100 Mcg PO DAILY06 Keppra (Levetiracetam) 500 Mg Tablet 500 Mg PO BID Vitamin D2 (Ergocalciferol (Vitamin D2)) 50,000 Unit Capsule 50,000 Unit PO WEEKLY Aspirin 81 Mg Tab.chew 81 Mg PO DAILY Amlodipine Besylate 5 Mg Tablet 5 Mg PO DAILY Tylenol (Acetaminophen) 325 Mg Tablet 650 Mg PO PRN Q6HRS PRN I have reviewed the current psychotropics carefully including drug interactions. Risk benefit ratio favors no change other than as noted in my dictated progress note. Diagnosis: Problems: (1) Major depressive disorder with psychotic features (2) Anxiety disorder (3) Mild cognitive disorder (4) Major depressive disorder, recurrent episode (5) Impulse control disorder ANTONIA BAILEY MD Nov 04, 2018 22:23
--- NOTE | 2018-11-05 00:26 | PN ---
DATE: 11/03/2018 PSYCHIATRIC PROGRESS NOTE This is a late entry for 11/03/2018 and covers elements not covered in my initial note. SUBJECTIVE: I met with the patient in the evening. The patient slept reasonably previous night. She has been more awake during the day. REVIEW OF SYSTEMS: Ambulation impaired, in wheelchair. No CV, , pulmonary, eye system symptoms on review. MENTAL STATUS EXAM: Oriented to herself and situation. Speech has some latency, coherent. Abstraction fair, computation impaired. Mood and affect is improved. IMPRESSION: Unchanged from initial note. PLAN: No change from initial note. MAN CasperRadha BAILEY MD DR: RAYMON/christen JOB#: [id number] / [id number]
--- NOTE | 2018-11-07 17:10 | DS ---
DATE OF DISCHARGE: 11/04/2018 ADDENDUM I have been asked to clarify where the patient was discharged to from our facility. She was discharged to [facility]. This note is completed at the request of the health information office. ANTONIA BAILEY MD DR: RAYMON/christen JOB#: [id number] / [id number]
--- NOTE | 2018-12-03 10:09 | EKG ---
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
== END 2018-11-04 11:30 | DRG 885 ==
LOC: GEROPSY 19:32
PROVIDERS: ADMIT Psychiatry & Neurology Psychiatry; ATTEND Psychiatry & Neurology Psychiatry
PROC: 5A09357 Assistance with Respiratory Ventilation, Less than 24 Consecutive Hours, Continuous Positive Airway Pressure (ICD-10-PCS; principal; 2018-09-20)
PROC: 5A09357 Assistance with Respiratory Ventilation, Less than 24 Consecutive Hours, Continuous Positive Airway Pressure (ICD-10-PCS; 2018-09-25)
PROC: 5A09357 Assistance with Respiratory Ventilation, Less than 24 Consecutive Hours, Continuous Positive Airway Pressure (ICD-10-PCS; 2018-09-27)
DX: F33.3 Major depressive disorder, recurrent, severe with psychotic symptoms (principal); F23 Brief psychotic disorder; R45.851 Suicidal ideations; N39.0 Urinary tract infection, site not specified; F01.50 Vascular dementia, unspecified severity, without behavioral disturbance, psychotic disturbance, mood disturbance, and anxiety; F42.9 Obsessive-compulsive disorder, unspecified; B37.9 Candidiasis, unspecified; C50.912 Malignant neoplasm of unspecified site of left female breast; E03.9 Hypothyroidism, unspecified; E11.36 Type 2 diabetes mellitus with diabetic cataract; E66.01 Morbid (severe) obesity due to excess calories; F41.1 Generalized anxiety disorder; F63.9 Impulse disorder, unspecified; G31.84 Mild cognitive impairment of uncertain or unknown etiology; G40.909 Epilepsy, unspecified, not intractable, without status epilepticus; G89.29 Other chronic pain; G47.33 Obstructive sleep apnea (adult) (pediatric); H35.30 Unspecified macular degeneration; I11.0 Hypertensive heart disease with heart failure; I50.9 Heart failure, unspecified; K57.90 Diverticulosis of intestine, part unspecified, without perforation or abscess without bleeding; W05.0XXA Fall from non-moving wheelchair, initial encounter; Z66 Do not resuscitate; Z85.3 Personal history of malignant neoplasm of breast; Z86.73 Personal history of transient ischemic attack (TIA), and cerebral infarction without residual deficits; Z87.440 Personal history of urinary (tract) infections; Y93.89 Activity, other specified; Y92.89 Other specified places as the place of occurrence of the external cause; Y99.8 Other external cause status; Z68.35 Body mass index [BMI] 35.0-35.9, adult
CPT/HCPCS: 36415; 70450; 70486; 73030; 80053; 80061; 81001; 82306; 82550; 82607; 82947; 83036; 83540; 83550; 83735; 83880; 84436; 84443; 84480; 84484; 85025; 85610; 85730; 86592; 87086; 87186; 93005; 93970; J1644; J1650; J1815; J3490; 97110; 97116; 97530; 97535